=== PATIENT | female | born 1950 | race Caucasian/White ===

== ENCOUNTER 2019-08-26 10:08 | Inpatient (IN) | payer OTHER ==
[2019-08-26] MEDS ORDERED: BUPIVACAINE LIPOSOME/PF (EXPAREL) 266 MG/20 ML VIAL ONE (12:43)
[2019-08-26] MEDS ORDERED: BUPIVACAINE HCL/PF 0.5% (5 MG/ML) 30 ML VIAL IJ ONE (12:43)
[2019-08-26] MEDS ORDERED: HEPARIN NA (PORCINE) 5,000 UNITS/ML 1ML VIAL ONE (12:46)
[2019-08-26] MEDS ORDERED: BUPIVACAINE HCL/PF 0.25% (2.5MG/ML) 10 ML VIAL ONE (12:46)
[2019-08-26] MEDS ORDERED: PROPOFOL 20 ML ONE ×24 (12:47→19:25)
[2019-08-26] MEDS ORDERED: THROMBIN (BOVINE) 5,000 UNIT VIAL TP ONE (12:47)
[2019-08-26] MEDS ORDERED: SUCCINYLCHOLINE CHLORIDE 200 MG/10 ML SYRINGE ONE (12:49)
[2019-08-26] MEDS ORDERED: MIDAZOLAM HCL 2 MG/2 ML SINGLE DOSE VIAL ONE ×2 (12:51)
[2019-08-26] MEDS ORDERED: HYDROmorphone HCl 2 MG/ML VIAL IVPUSH PRN (12:58)
[2019-08-26] MEDS ORDERED: oxyCODONE HCL 5 MG TABLET PO PRN ×2 (12:59)
--- NOTE | 2019-08-26 13:07 | PN ---
Progress Note (short form) - Note Progress Note: 68F s/p L1-S1 bilateral laminectomies; bilateral L1-S1 facetectomies; L3-L4, L4- L5, L5-S1 PLIF w/T11-S1 posterior instrumented spinal fusion POD #0. -Admit to ICU post-op. -Pain control: NO NSAID's; patient received pre-op TLIP block w/Exparel; OK to use ROOM MANAGER if needed; transition to oral analgesia post-op. -DVT PPx: -Mechanical only: VLADISLAV's, SCD's. -Chemical: None. -Incentive spirometry q15 min. -NPO until flatus. -Baird care; d/c when ambulating. -Post-op Ancef x 3 doses. -PT/OT/Rehab, OOB. -WBAT B/L LE. -No bending, lifting (>5 lbs), or twisting for 9-12 months. -Care per ICU & medical hospitalist teams. -Discharge planning: f/u 7-10 days [facility]; call for appointment; . -Will follow. Eliezer Villa MD (Orthopaedic Surgery).
--- NOTE | 2019-08-26 13:11 | OP ---
Operative Note - Note: Operative Date: 08/26/19 Pre-Operative Diagnosis: 1. Thoracolumbar kyphoscoliosis with sagital vertical malalignment deformity. 2. 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 3. L1-S1 spinal stenosis with neurogenic claudication. 4. Thoracolumbar axial segmental instability. Severity of illness: 4. Operation: 1. L1, L2, L3, L4, L5, S1 bilateral laminectomies & osteotomies ( facetectomies). 2. TL4-L5, L5-S1 posterior lumbar interbody fusion. 3. T11-S1 posterior instrumentation. 4. T11-S1 posterolateral arthrodesis. 5. Bone allograft. 6. Bone autograft. 7. Bone marrow aspiration. 8. Complex wound closure (60cm) Implants: Implants: Cages: Fortilink Tetrafuse. L4-L5: 13mm. L5-S1: 10mm. Screws, Rods, Cross-Link. Post-Operative Diagnosis: Same as Pre-op Surgeon: Eliezer Villa Front Window Cashier: Elder Villa Anesthesiologist/REFERENCE ASSISTANT: Zenia Delgado Anesthesia: General, Local (TLIP block) Specimens Removed: L4-L5, L5-S1 discs Estimated Blood Loss (mls): 1,750 Blood Volume Replaced (mls): 625 (Cell Saver) Fluid Volume Replaced (mls): 3,000 (Crystalloid) Operative Report Dictated: Yes
[2019-08-26] MEDS ORDERED: KETAMINE HCL 200 MG/20 ML VIAL ONE (14:07)
[2019-08-26] MEDS ORDERED: HYDROmorphone HCl 2 MG/ML VIAL ONE ×3 (14:11→19:21)
[2019-08-26] MEDS ORDERED: VANCOMYCIN 1,000 MG VIAL (RESTRICTED TO ID ONLY) ONE (14:21)
[2019-08-26] MEDS ORDERED: BENZOIN TINCTURE SWABSTICK TP ONE (14:54)
[2019-08-26] MEDS ORDERED: TRANEXAMIC ACID 1000 MG/10 ML VIAL ONE (14:55)
[2019-08-26] MEDS ORDERED: ceFAZolin SODIUM 1 GM VIAL ONE ×2 (14:56→18:53)
[2019-08-26] MEDS ORDERED: DEXAMETHASONE SOD PHOSPHATE 4 MG/1 ML VIAL ONE (15:00)
[2019-08-26] MEDS ORDERED: ceFAZolin SODIUM 1 GM VIAL IVPB ONE ×2 (15:00→18:55)
[2019-08-26] MEDS ORDERED: ONDANSETRON 4 MG/2 ML VIAL ONE (15:00)
[2019-08-26] MEDS ORDERED: VANCOMYCIN 1,000 MG VIAL (RESTRICTED TO ID ONLY) IVPB ONE (15:10)
[2019-08-26] MEDS ORDERED: ROCURONIUM BROMIDE 50 MG/5 ML SYRINGE ONE (15:40)
[2019-08-26] MEDS ORDERED: DESFLURANE GAS 240 ML BOTTLE IH ONE (15:53)
[2019-08-26] MEDS ORDERED: GLYCOPYRROLATE 0.2 MG/1 ML VIAL ONE (16:32)
[2019-08-26] MEDS ORDERED: ePHEDrine SULFATE 50 MG/1 ML AMPULE ONE (16:50)
[2019-08-26] MEDS ORDERED: BENZOIN/ALOE VERA/STORAX/TOLU 58 ML BOTTLE TP ONE (20:48)
[2019-08-26] MEDS ORDERED: LACTATED RINGERS SOLUTION 1,000 ML IV SCH ×2 (21:15→22:15)
[2019-08-26] MEDS ORDERED: oxyCODONE HCL 10 MG SUSTAINED ACTING TABLET PO SCH (22:00)
--- NOTE | 2019-08-27 00:42 | CONSULT ---
Consultation: REQUESTING PROVIDER: CONSULT REQUEST: We have been asked to medically evaluate this patient for post op medical management. HISTORY OF PRESENT ILLNESS: This is a 68 year old female with no significant PMH. She presented to the ICU after elective spinal surgery consisting of the following procedures: 1. L1, L2 , L3, L4, L5, S1 bilateral laminectomies & osteotomies (facetectomies). 2. TL4- L5, L5-S1 posterior lumbar interbody fusion. 3. T11-S1 posterior instrumentation. 4. T11-S1 posterolateral arthrodesis. 5. Bone allograft. 6. Bone autograft. 7. Bone marrow aspiration. 8. Complex wound closure (60cm). She required the surgery due to chronic lower back pain, which began 2 years ago after she fell down a step at a restaurant. She hit her head, but claims that her hair was fashioned into a bun, which served to soften the blow. She believes she did not lose consciousness, although she admits that she does not remember much about the event. She complained of significant back pain during questioning, and was unable to answer any further questions. REVIEW OF SYSTEMS: CONSTITUTIONAL: Absent: fever, chills, diaphoresis, generalized weakness, malaise, loss of appetite, weight change HEENT: Absent: rhinorrhea, nasal congestion, throat pain, throat swelling, difficulty swallowing, mouth swelling, ear pain, eye pain, visual changes CARDIOVASCULAR: Absent: chest pain, syncope, palpitations, irregular heart rate, lightheadedness , peripheral edema RESPIRATORY: Absent: cough, shortness of breath, dyspnea with exertion, orthopnea, wheezing, stridor, hemoptysis GASTROINTESTINAL: Absent: abdominal pain, abdominal distension, nausea, vomiting, diarrhea, constipation, melena, hematochezia GENITOURINARY: Absent: dysuria, frequency, urgency, hesitancy, hematuria, flank pain, genital pain MUSCULOSKELETAL: back pain Absent: myalgia, arthralgia, joint swelling, neck pain SKIN: Absent: rash, itching, pallor HEMATOLOGIC/IMMUNOLOGIC: Absent: easy bleeding, easy bruising, lymphadenopathy, frequent infections ENDOCRINE: Absent: unexplained weight gain, unexplained weight loss, heat intolerance, cold intolerance NEUROLOGIC: Absent: headache, focal weakness or paresthesias, dizziness, unsteady gait, seizure, mental status changes, bladder or bowel incontinence PSYCHIATRIC: Absent: anxiety, depression, suicidal or homicidal ideation, hallucinations. PHYSICAL EXAMINATION Vital Signs - 24 hr 08/26/19 08/26/19 08/26/19 11:27 21:18 21:30 Temperature 98.3 F 98.6 F Pulse Rate 78 103 H 98 H Respiratory 16 12 12 Rate Blood Pressure 144/76 123/79 147/100 O2 Sat by Pulse 96 96 Oximetry (%) 08/26/19 08/26/19 08/26/19 21:45 22:00 22:15 Temperature Pulse Rate 99 H 104 H 106 H Respiratory 12 12 12 Rate Blood Pressure 114/80 121/86 125/90 O2 Sat by Pulse 96 96 96 Oximetry (%) 08/26/19 08/26/19 08/26/19 22:30 22:45 23:00 Temperature Pulse Rate 104 H 106 H 88 Respiratory 12 12 25 H Rate Blood Pressure 134/77 140/83 115/73 O2 Sat by Pulse 97 95 100 Oximetry (%) 08/26/19 08/26/19 23:15 23:30 Temperature 97.9 F Pulse Rate 87 90 Respiratory 22 H 196 H Rate Blood Pressure 129/70 130/88 O2 Sat by Pulse 100 96 Oximetry (%) GENERAL: On venti mask, in distress, complaining of back pain and dry throat. AOx3 HEAD: Normal with no signs of trauma. EYES: ANTONINO, EOMI EARS, NOSE, THROAT: Dry mucus membranes LUNGS: Decreased breath sounds B/L, clear B/L HEART: RRR, no murmurs ABDOMEN: Soft, nontender, not distended LOWER EXTREMITIES: 2+ pulses, warm, well-perfused NEUROLOGICAL: Unable to assess motor function due to pain, sensations intact SKIN: Warm, dry, normal turgor, no rashes or lesions noted. Laboratory Results - last 24 hr 08/26/19 08/26/19 10:49 12:40 Blood Type A POSITIVE A POSITIVE Antibody Screen Negative Active Medications Generic Name Dose Route Start Last Admin Trade Name Freq PRN Reason Stop Dose Admin Acetaminophen 1,000 mg 08/27/19 06:00 Ofirmev Injection - IVPB 08/30/19 05:59 Q8H FARAZ Cefazolin Sodium/Dextrose 2 gm 08/27/19 01:00 Ancef 2 Gm Premixed Ivpb - IVPB 08/27/19 13:01 Q6H FARAZ Hydromorphone HCl 0.5 mg 08/26/19 12:58 Dilaudid Vial - IVPUSH [id number] PRN PAIN LEVEL 6-10 Lactated Ringer's 1,000 mls @ 125 mls/hr 08/26/19 22:15 Lactated Ringers Solution IV ASDIR FARAZ Ondansetron HCl 4 mg 08/26/19 21:12 Zofran Injection IVPUSH Q6H PRN NAUSEA AND/OR VOMITING ASSESSMENT/PLAN: POD #0 after 1. L1, L2, L3, L4, L5, S1 bilateral laminectomies & osteotomies ( facetectomies). 2. TL4-L5, L5-S1 posterior lumbar interbody fusion. 3. T11-S1 posterior instrumentation. 4. T11-S1 posterolateral arthrodesis. 5. Bone allograft. 6. Bone autograft. 7. Bone marrow aspiration. 8. 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 #Respiratory - Incentive spirometry q15 min. #ID -Post-op Ancef x 3 doses. #Renal - Baird care; d/c when ambulating. #FEN - NPO until flatus - RL @ 125 #DVT PPx: - Mechanical only: VLADISLAV's, SCD's. #Dispo - Monitor in ICU - We will continue to follow the patient. Thank you for this consultative opportunity. Visit type - Emergency Visit Emergency Visit: No - New Patient This patient is new to me today: Yes Date on this admission: 08/26/19 - Critical Care Critical Care patient: Yes Total Critical Care Time (in minutes): 37 Critical Care Statement: The care of this patient involved high complexity decision making to prevent further life threatening deterioration of the patient 's condition and/or to evaluate & treat vital organ system(s) failure or risk of failure. ATTENDING PHYSICIAN STATEMENT I saw and evaluated the patient. I reviewed the resident's note and discussed the case with the resident. I agree with the resident's findings and plan as documented. SUBJECTIVE: OBJECTIVE: ASSESSMENT AND PLAN:
[2019-08-27] MEDS: PHENOL 177 ML SPRAY BOTTLE MM PRN ×2 (00:51→10:00)
[2019-08-27] MEDS: ceFAZolin 2 GRAM PREMIX BAG IVPB SCH ×3 (00:57→12:05)
[2019-08-27] MEDS ORDERED: HYDROmorphone HCl 2 MG/ML VIAL IVPUSH ONE ×3 (01:02→11:50)
[2019-08-27] MEDS: ACETAMINOPHEN 1000 MG/100 ML VIAL (NON FORMULARY) IVPB SCH ×3 (05:26→21:45)
[2019-08-27 06:57] LABS: HEMATOCRIT 40.3 % (32.4-45.2); MCHC 32.2 g/dl (32.0-36.0); MEAN PLT VOLUME 7.8 fl (7.5-11.1); PLATELET COUNT 224 K/MM3 (134-434); RBC 4.79 M/mm3 (3.60-5.2); RDW 14.2 % (11.6-15.6); WHITE BLOOD COUNT 15.7 K/mm3 (4.0-10.0)
[2019-08-27 07:28] LABS: BLOOD UREA NITROGEN 17.7 mg/dL (7-18); CALCIUM 8.6 mg/dL (8.5-10.1); CREATININE 0.9 mg/dL (0.55-1.3); POTASSIUM 4.2 mmol/L (3.5-5.1)
--- NOTE | 2019-08-27 07:31 | HP ---
<Scooter Gibbons - Last Filed: 08/27/19 09:09> CHIEF COMPLAINT: Orthopedic Surgery PCP: HISTORY OF PRESENT ILLNESS: 68yo F with only history of low back pain with neuropathy who came in to this facility for undergoing complex lumbar correction and spinal decompression with Dr. Villa. Pt underwent pre-operative clearance with her PCP (records in chart) and was optimized for her surgery. EBL perioperatively is 1750cc with 650cc Cell saver and 3L IVF during procedure. Pt had no events with post- operative recovery and was monitored overnight in the ICU. Pt reports last night she was in excessive pain with minimal relief from Tylenol and slight relief with Dilaudid 0.5mg IVP. Pt also complains of odynophagia, however denies hoarseness of voice and dysphagia all-together. Pt today reports pain is 6/10 while resting in bed and she has been using her incentive spirometry. Pt denies any numbness/tingling of her distal extremities, weakness of her feet, SOB, CP, palpitations, abdominal pain. 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 Allergies No Known Allergies Allergy (Verified 08/26/19 11:14) HOME MEDICATIONS: Home Medications Medication Instructions Recorded Oxycodone HCl/Acetaminophen 1 each PO PRN 08/23/19 [Oxycodone-Acetaminophen 10-325] REVIEW OF SYSTEMS As per HPI PHYSICAL EXAMINATION Vital Signs - 24 hr 08/26/19 08/26/19 08/26/19 11:27 21:00 21:18 Temperature 98.3 F 98.6 F Pulse Rate 78 103 H Respiratory 16 12 Rate Blood Pressure 144/76 123/79 O2 Sat by Pulse 95 96 Oximetry (%) 08/26/19 08/26/19 08/26/19 21:30 21:45 22:00 Temperature Pulse Rate 98 H 99 H 104 H Respiratory 12 12 12 Rate Blood Pressure 147/100 114/80 121/86 O2 Sat by Pulse 96 96 96 Oximetry (%) 08/26/19 08/26/19 08/26/19 22:15 22:30 22:45 Temperature Pulse Rate 106 H 104 H 106 H Respiratory 12 12 12 Rate Blood Pressure 125/90 134/77 140/83 O2 Sat by Pulse 96 97 95 Oximetry (%) 08/26/19 08/26/19 08/26/19 23:00 23:15 23:30 Temperature 97.9 F Pulse Rate 88 87 90 Respiratory 25 H 22 H 196 H Rate Blood Pressure 115/73 129/70 130/88 O2 Sat by Pulse 100 100 96 Oximetry (%) 08/27/19 08/27/19 08/27/19 02:00 03:33 05:33 Temperature 98.2 F 98.7 F 98.7 F Pulse Rate 78 81 78 Respiratory 11 27 H 22 H Rate Blood Pressure 132/71 124/53 L 125/55 L O2 Sat by Pulse Oximetry (%) 08/27/19 06:33 Temperature 98.5 F Pulse Rate 82 Respiratory 19 Rate Blood Pressure 135/54 L O2 Sat by Pulse Oximetry (%) GENERAL: Awake, alert, and fully oriented, in no acute distress. HEENT: NC/AT, JOSE< sclera anicteric, MMM NECK: No JVD LUNGS: CTA bilaterally. No wheezes, and no crackles. No accessory muscle use. HEART: RRR, normal S1 and S2 without murmur ABDOMEN: Soft, NT/ND,Hypoactive bowel sounds, no guarding. : Tapia with clear-yellow drainage noted EXTREMITIES: 2+ pulses, warm, well-perfused. No calf tenderness. No peripheral edema. NEUROLOGICAL: alumni relations officer II-XII intact. Strength of UExt b/l 5/5. Strength of LExt 5/ 5 with plantar and dorsal flexion, 3/5 with hip flexion. Normal speech PSYCHIATRIC: Cooperative. Good eye contact. Appropriate mood and affect. SKIN: Warm, dry, normal turgor, no rashes or lesions noted Laboratory Results - last 24 hr 08/26/19 08/26/19 08/27/19 10:49 12:40 05:30 WBC 15.7 H RBC 4.79 Hgb 13.0 Hct 40.3 MCV 84.0 MCH 27.0 MCHC 32.2 RDW 14.2 Plt Count 224 MPV 7.8 Sodium Potassium Chloride Carbon Dioxide Anion Gap BUN Creatinine Est GFR (CKD-EPI)AfAm Est GFR (CKD-EPI)NonAf Random Glucose Calcium Blood Type A POSITIVE A POSITIVE Antibody Screen Negative 08/27/19 05:30 WBC RBC Hgb Hct MCV MCH MCHC RDW Plt Count MPV Sodium 141 Potassium 4.2 Chloride 109 H Carbon Dioxide 23 Anion Gap 9 BUN 17.7 Creatinine 0.9 Est GFR (CKD-EPI)AfAm 75.08 Est GFR (CKD-EPI)NonAf 64.78 Random Glucose 113 H Calcium 8.6 Blood Type Antibody Screen ASSESSMENT/PLAN: POD #0-1 of L1-S1 bilateral laminectomies; bilateral L1-S1 facetectomies L3-L4, L4-L5, L5-S1 PLIF w/T11-S1 posterior instrumented spinal fusion Odynophagia --Added oral narcotic pain regiment (Oxycodone 5mg q6h vs. 10mg q6h) based upon pain scale --Avoid NSAIDs if possible --Tylenol to augment pain as needed --Mobilize per surgery --Once passing flatus can advance diet --Once mobility increases can discontinue tapia and ToV begins --Cepacol lozenges ordered for odynophagia likely 2/2 to intubation during procedure --Encouraged incentive spirometry use --Physical therapy ordered --Will have to f/u with Dr. Villa post-op FEN: Fluids: LR@125cc/hr; can discontinue once tolerating PO Electrolyte abnormalities: None Nutrition: NPO until flatus PPX: DVT - Scds GI - Not indicated Dispo: Can transfer to / today Case discussed with Dr. Goodwin and ICU team Scooter Gibbons DO - PGY-3 Visit type - Emergency Visit Emergency Visit: No - New Patient This patient is new to me today: Yes Date on this admission: 08/27/19 - Critical Care Critical Care patient: No ATTENDING PHYSICIAN STATEMENT I saw and evaluated the patient. I reviewed the resident's note and discussed the case with the resident. I agree with the resident's findings and plan as documented. SUBJECTIVE: OBJECTIVE: ASSESSMENT AND PLAN: <Christopher Goodwin - Last Filed: 09/14/19 09:48> Seen and examined; agree with above aside from as supplemented below by myself. Personally verified all historical information and yang PE findings. Independently reviewed all labs and diagnostics. I discussed the case at length with the resident and consulting services. All questions answered. Seen in ICU Agree with subjective info and PMH, etc. HOME MEDICATIONS: Home Medications Medication Instructions Recorded Oxycodone HCl/Acetaminophen 1 each PO PRN 08/23/19 [Oxycodone-Acetaminophen 10-813] REVIEW OF SYSTEMS 10 sys ROS done and negative aside from HPI PHYSICAL EXAMINATION Vital Signs - 24 hr 08/27/19 08/27/19 08/27/19 14:00 16:00 17:00 Temperature Pulse Rate 98 H 96 H 93 H Respiratory 14 22 H 22 H Rate Blood Pressure 166/71 161/68 161/68 O2 Sat by Pulse 95 Oximetry (%) 08/27/19 08/27/19 08/27/19 18:00 18:15 20:00 Temperature 99.2 F Pulse Rate 99 H 97 H Respiratory 17 15 Rate Blood Pressure 161/69 144/65 O2 Sat by Pulse 96 Oximetry (%) 08/27/19 08/27/19 08/28/19 21:00 22:00 00:00 Temperature 100.9 F H Pulse Rate 92 H 91 H Respiratory 15 15 14 Rate Blood Pressure 141/64 139/69 O2 Sat by Pulse 97 97 Oximetry (%) 08/28/19 08/28/19 08/28/19 00:45 02:00 04:00 Temperature 100.3 F H Pulse Rate 85 87 90 Respiratory 13 14 14 Rate Blood Pressure 139/69 149/64 159/65 O2 Sat by Pulse 97 98 100 Oximetry (%) 08/28/19 08/28/19 08/28/19 06:00 08:00 10:00 Temperature 100 F H 98.9 F Pulse Rate 90 83 85 Respiratory 15 13 16 Rate Blood Pressure 137/61 145/61 143/59 L O2 Sat by Pulse 100 Oximetry (%) GENERAL: Awake, alert, and fully oriented, in no acute distress. HEAD: Normal with no signs of trauma. EYES: Pupils equal, round and reactive to light, extraocular movements intact, sclera anicteric, conjunctiva clear. No lid lag. EARS, NOSE, THROAT: Ears normal, nares patent, oropharynx clear without exudates. Moist mucous membranes. NECK: Normal range of motion, supple without lymphadenopathy, JVD, or masses. LUNGS: Breath sounds equal, clear to auscultation bilaterally. No wheezes, and no crackles. No accessory muscle use. HEART: Regular rate and rhythm, normal S1 and S2 without murmur, rub or gallop. ABDOMEN: Soft, nontender, not distended, normoactive bowel sounds MUSCULOSKELETAL: Normal range of motion at all joints. No bony deformities or tenderness. No CVA tenderness. UPPER EXTREMITIES: 2+ pulses, warm, well-perfused. No cyanosis. No clubbing. No peripheral edema. LOWER EXTREMITIES: 2+ pulses, warm, well-perfused. No calf tenderness. No peripheral edema. NEUROLOGICAL: Cranial nerves II-XII intact. Normal speech. Normal gait. PSYCHIATRIC: Cooperative. Good eye contact. Appropriate mood and affect. SKIN: Warm, dry, normal turgor, no rashes or lesions noted, normal capillary refill. Laboratory Results - last 24 hr 08/28/19 08/28/19 07:00 07:00 WBC 10.8 H RBC 3.90 Hgb 10.8 Hct 32.1 L D MCV 82.2 MCH 27.8 MCHC 33.8 RDW 13.9 Plt Count 186 MPV 7.4 L Sodium 138 Potassium 4.0 Chloride 104 Carbon Dioxide 30 Anion Gap 3 L BUN 13.4 Creatinine 0.7 Est GFR (CKD-EPI)AfAm 101.74 Est GFR (CKD-EPI)NonAf 87.78 Random Glucose 97 Calcium 8.5 Preop labs reviewed imaging reviewed EKG reviewed Tele reviewed ASSESSMENT/PLAN: Presents for POD #0-1 of L1-S1 bilateral laminectomies; bilateral L1-S1 facetectomies L3-L4, L4-L5, L5-S1 PLIF w/T11-S1 posterior instrumented spinal fusion Odynophagia No further issues Agree with assessment and plan Managemetn per PCC and Dr. Villa Defer pain control to sgy; agree with plan per resident note. Monitor for postoperative complications Full Code ATTENDING PHYSICIAN STATEMENT I saw and evaluated the patient. I reviewed the resident's note and discussed the case with the resident. I agree with the resident's findings and plan as documented. SUBJECTIVE: OBJECTIVE: ASSESSMENT AND PLAN:
[2019-08-27] MEDS ORDERED: oxyCODONE HCL 5 MG TABLET PO PRN (08:05)
[2019-08-27] MEDS ORDERED: DOCUSATE SODIUM 100 MG CAPSULE (FP) PO PRN (08:05)
--- NOTE | 2019-08-27 09:01 | PN ---
Physical Exam: SUBJECTIVE: Patient seen and examined. Complains of back pain. Denies passing gas. Denies CP, SOB. OBJECTIVE: Vital Signs Period Temp Pulse Resp BP Sys/No Pulse Ox Last 24 Hr 97.9 F-98.7 F 78-106 11-196 114-147/53-100 95-100 GENERAL: The patient is awake, alert, and fully oriented, in mild acute distress. LUNGS: Breath sounds equal, clear to auscultation bilaterally, no wheezes, no crackles, no accessory muscle use. HEART: Regular rate and rhythm, S1, S2 without murmur, rub or gallop. ABDOMEN: Soft, nontender, nondistended, normoactive bowel sounds, no guarding, no rebound, no hepatosplenomegaly, no masses. BACK: midline dressing over surgical site EXTREMITIES: warm, well-perfused, no edema NEUROLOGICAL: AOx3. Normal speech Laboratory Results - last 24 hr 08/26/19 08/26/19 08/27/19 10:49 12:40 05:30 WBC 15.7 H RBC 4.79 Hgb 13.0 Hct 40.3 MCV 84.0 MCH 27.0 MCHC 32.2 RDW 14.2 Plt Count 224 MPV 7.8 Sodium Potassium Chloride Carbon Dioxide Anion Gap BUN Creatinine Est GFR (CKD-EPI)AfAm Est GFR (CKD-EPI)NonAf Random Glucose Calcium Blood Type A POSITIVE A POSITIVE Antibody Screen Negative 08/27/19 05:30 WBC RBC Hgb Hct MCV MCH MCHC RDW Plt Count MPV Sodium 141 Potassium 4.2 Chloride 109 H Carbon Dioxide 23 Anion Gap 9 BUN 17.7 Creatinine 0.9 Est GFR (CKD-EPI)AfAm 75.08 Est GFR (CKD-EPI)NonAf 64.78 Random Glucose 113 H Calcium 8.6 Blood Type Antibody Screen Active Medications Generic Name Dose Route Start Last Admin Trade Name Freq PRN Reason Stop Dose Admin Acetaminophen 1,000 mg 08/27/19 06:00 08/27/19 05:26 Ofirmev Injection - IVPB 08/30/19 05:59 1,000 mg Q8H FARAZ Administration Benzocaine/Menthol 1 each 08/27/19 08:04 Cepacol Lozenge - MM PRN PRN SORE THROAT Cefazolin Sodium/Dextrose 2 gm 08/27/19 01:00 08/27/19 06:14 Ancef 2 Gm Premixed Ivpb - IVPB 08/27/19 13:01 2 gm Q6H FARAZ Administration Docusate Sodium 100 mg 08/27/19 08:05 Colace - PO BID PRN CONSTIPATION Lactated Ringer's 1,000 mls @ 125 mls/hr 08/26/19 22:15 08/26/19 23:00 Lactated Ringers Solution IV 125 mls/hr ASDIR FARAZ Administration Ondansetron HCl 4 mg 08/26/19 21:12 Zofran Injection IVPUSH Q6H PRN NAUSEA AND/OR VOMITING Oxycodone HCl 5 mg 08/27/19 08:05 Roxicodone - PO Q6H PRN PAIN LEVEL 4 - 6 Oxycodone HCl 10 mg 08/27/19 08:05 Roxicodone - PO Q6H PRN PAIN LEVEL 7 - 10 Phenol/Menthol 1 spray 08/27/19 00:41 08/27/19 00:51 Chloraseptic - MM 1 spray Q2H PRN Administration SORE THROAT ASSESSMENT/PLAN: Emilee Daugherty is a 68yF w no significant PMHx after 1. L1, L2, L3, L4, L5, S1 bilateral laminectomies & osteotomies (facetectomies). 2. TL4-L5, L5-S1 posterior lumbar interbody fusion. 3. T11-S1 posterior instrumentation. 4. T11 -S1 posterolateral arthrodesis. 5. Bone allograft. 6. Bone autograft. 7. Bone marrow aspiration. 8. Complex wound closure (60cm) POD#1 #Ortho - PT #Neuro - Pain control: dilaudid, tylenol, oxycodone PRN. No NSAIDs. 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 - New Patient This patient is new to me today: Yes Date on this admission: 08/27/19 - Critical Care Critical Care patient: Yes Total Critical Care Time (in minutes): 38 Critical Care Statement: The care of this patient involved high complexity decision making to prevent further life threatening deterioration of the patient 's condition and/or to evaluate & treat vital organ system(s) failure or risk of failure. ATTENDING PHYSICIAN STATEMENT I saw and evaluated the patient. I reviewed the resident's note and discussed the case with the resident. I agree with the resident's findings and plan as documented. SUBJECTIVE: OBJECTIVE: ASSESSMENT AND PLAN:
[2019-08-27] MEDS: oxyCODONE HCL 5 MG TABLET PO PRN ×2 (09:08→14:48)
--- NOTE | 2019-08-27 10:00 | PN ---
Progress Note (short form) - Note Progress Note: Anesthesia Post Op Note Pt s/p GA w/ TLIP blocks for multiple level laminectomy & spinal fusions Pt awake alert in bed Pt denies n/v; denies puritis tapia in situ Pt reports poor pain control on current regimen VSS would suggest increasing pain meds - consider NEUROPSYCHIATRIST no apparent anesthesia complications Christiane Presley.
[2019-08-27] MEDS ORDERED: morphine CARPU-JECT 4 MG/1 ML DISP.SYRIN IVPUSH ONE (10:19)
[2019-08-27] MEDS ORDERED: morphine SULFATE 4 MG/ML VIAL ONE (10:27)
[2019-08-27] MEDS ORDERED: morphine SULFATE 4 MG/ML VIAL IVPUSH ONE (10:30)
--- NOTE | 2019-08-27 11:44 | PN ---
Teaching Attending Note Name of Resident: Don Conroy ATTENDING PHYSICIAN STATEMENT I saw and evaluated the patient. I reviewed the resident's note and discussed the case with the resident. I agree with the resident's findings and plan as documented. SUBJECTIVE: Pt seen and examined in the ICU. c/o significant pain, not controlled with current regimen. No nausea or vomiting. OBJECTIVE: Vital Signs Period Temp Pulse Resp BP Sys/No Pulse Ox Last 24 Hr 97.9 F-98.9 F 78-106 11-196 114-154/53-100 95-100 Intake & Output 08/24/19 08/25/19 08/26/19 08/27/19 23:59 23:59 23:59 23:59 Intake Total 3825 Output Total 2200 Balance 1625 Weight 108.046 kg Gen: NAD at rest Heart: RRR Lung: decreased breath sounds at the bases Abd: soft, nontender Ext: no edema CBC, BMP 08/27/19 05:30 08/27/19 05:30 Active Medications Acetaminophen (Ofirmev Injection -) 1,000 mg IVPB Q8H FARAZ Stop: 08/30/19 05:59 Last Admin: 08/27/19 05:26 Dose: 1,000 mg Benzocaine/Menthol (Cepacol Lozenge -) 1 each MM PRN PRN PRN Reason: SORE THROAT Cefazolin Sodium/Dextrose (Ancef 2 Gm Premixed Ivpb -) 2 gm IVPB Q6H FARAZ Stop: 08/27/19 13:01 Last Admin: 08/27/19 06:14 Dose: 2 gm Docusate Sodium (Colace -) 100 mg PO BID PRN PRN Reason: CONSTIPATION Hydromorphone HCl (Dilaudid Vial -) 1 mg IVPUSH ONCE ONE Stop: 08/27/19 11:51 Lactated Ringer's (Lactated Ringers Solution) 1,000 mls @ 125 mls/hr IV ASDIR FARAZ Last Admin: 08/26/19 23:00 Dose: 125 mls/hr Ondansetron HCl (Zofran Injection) 4 mg IVPUSH Q6H PRN PRN Reason: NAUSEA AND/OR VOMITING Oxycodone HCl (Roxicodone -) 5 mg PO Q6H PRN PRN Reason: PAIN LEVEL 4 - 6 Oxycodone HCl (Roxicodone -) 10 mg PO Q6H PRN PRN Reason: PAIN LEVEL 7 - 10 Last Admin: 08/27/19 09:08 Dose: 10 mg Phenol/Menthol (Chloraseptic -) 1 spray MM Q2H PRN PRN Reason: SORE THROAT Last Admin: 08/27/19 00:51 Dose: 1 spray ASSESSMENT AND PLAN: 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
[2019-08-27] MEDS: LACTATED RINGERS SOLUTION 1,000 ML IV SCH (14:40)
[2019-08-27] MEDS: BENZOCAINE/MENTH/CETYLPYRD CL 1 EACH LOZENGE MM PRN (14:41)
--- NOTE | 2019-08-27 15:23 | OP ---
Date of Operation: 08/26/2019 Pre-Operative Diagnosis: 1. Thoracolumbar kyphoscoliosis deformity with sagittal vertical malalignment and imbalance. 2. 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 3. L1-S1 spinal stenosis with neurogenic claudication. 4. L1-S1 axial instability with myofascial pain complex. Post-Operative Diagnosis: 1. Thoracolumbar kyphoscoliosis deformity with sagittal vertical malalignment and imbalance. 2. 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 3. L1-S1 spinal stenosis with neurogenic claudication. 4. L1-S1 axial instability with myofascial pain complex. Procedure Performed: 1. L1, L2, L3, L4, L5, S1 bilateral laminectomies & facetectomies. (37158-88 , 63489-26 x 5) 2. L4-L5, L5-S1 posterolateral arthrodesis & posterior lumbar interbody fusion (PLIF). (62069 x 2) 3. L4-L5, L5-S1 insertion biomechanical devices (14839 x 2). 4. T11-S1 posterior instrumentation. (88924-02-85) 5. T11-T12 posterolateral arthrodesis. (33674-22, 23339-22) 6. L1-L2, L2-L3, L3-L4 posterolateral arthrodesis. (33668-15, 71410-78 x 2) 7. Morselized bone autograft. (20970) 8. Morselized bone allograft. (55158) 9. Bone marrow aspiration for bone grafting. (40075) 10. Complex wound closure (60cm) (24868 x 6) Surgeon: Eliezer Villa M.D. Film Booker: Elder Villa M.D. Anesthesiologist: Zenia Delgado M.D. Anesthesia: General, Local (TLIP block). Position: Prone. Incision: Midline. Specimens Removed: L4-L5, L5-S1 disc. Implants: Cages: Fortilink Tetrafuse. L4-L5: 13mm. L5-S1: 10mm. Screws: T11-S1. Rods: 2. Cross-Link: 1. Drains: 1 x deep HemoVac. Estimated Blood Loss: 1,750cc. Intravenous Fluid: 3L crystalloid. Transfusions: 625cc Cell Saver. Complications: None. Bacteriology: None. Closure: No. 1 Vicryl, 2-0 Biosyn absorbable sutures. Indications: The patient was indicated for the above listed surgical procedure due to progressive spinal deformity affecting balance and safety, and due to progressive neurological and functional decline that limits her mobility and ability to independently attend to her activities of daily living. The patient was identified in the holding area by her armband. A long discussion was held with the patient regarding the risks, benefits, and alternatives of the above-listed procedure. The risks include, but are not limited to: Pain, bleeding, infection, damage to surrounding structures (including nerves, blood vessels, skin, ligaments, tendons, and bone), wound complications, failure of hardware/implants/reduction , need for further surgery, blood clots, myocardial infarction, cerebrovascular injury, pulmonary embolism, anesthesia complications, limp, numbness, paresthesias, loss of function, and . Benefits may include reduction of: spinal deformity, imbalance, back pain, spinal stenosis, radiculopathy, neurogenic claudication, and improved overall mobility and function. Alternatives include no surgery. All questions were answered. The patient understood and agreed to the procedure. Informed consent was obtained, witnessed, and verified. The patient's lumbar spine was marked. He was then assessed by the anesthesia team who proceeded to administer a bilateral imaging-guided TLIP block to facilitate post-operative pain management. The patient was then taken to the operating room after being seen by the anesthesia and nursing staff. Procedure: The patient was brought into the operating room, where anesthesia was then administered. This included 2g IV Ancef, 1g IV Vancomycin, and 1g IV tranexamic acid (TXA). A time-out was done led by , the attending surgeon. An indwelling Baird catheter was successfully inserted by the nursing team. The intra-operative neuromonitoring team provided prepositioning baseline motor and sensory readings. The patient was then safely placed in a prone position with all bony prominences well-padded on a [facility] spine table with strict attention paid to maintenance of sagittal vertical alignment. Retroversion of the pelvis was avoided by ensuring that the hips were extended. This also ensured appropriate lumbar lordosis. The arms were placed on well-padded arm boards and maintained with standard forward flexion, abduction, and external rotation of the shoulders, and flexion of the elbows. Special attention was given to the safe positioning of the cervical spine. The patients eyes, and belly were all free. The table was placed in 6 degrees of reverse Trendelenburg position to avoid ophthalmic vein congestion. Post-positional motor and sensory readings confirmed no change. A C-arm fluoroscopy unit was positioned perpendicularly to the table and maintained at the level of the upper thoracic spine, except when needed. The skin was prepped in standard, sterile fashion using betadine prep & scrub, wiped off with alcohol, and DuraPrep applied. Standard window draping was utilized, and this included draping of the C-arm. Appropriate pre-operative imaging, including lumbar spine x-rays, and MRI, were available throughout the case for intraoperative evaluation. Verification of the intended surgical levels was confirmed with a lateral fluoroscopic x-ray using a Rothman elevator for localization. A time-out was repeated, and the case began. A midline skin incision was performed from the tip of the spinous process of T10 to the tip of the spinous process of S2. Using electrocautery, the dissection was carried down through subcutaneous fat and then through the midline of the lumbodorsal fascia down to the tips of the spinous processes. A subperiosteal dissection was performed using a combination of unipolar electrocautery and Rothman elevation. This was carried down the spinous process, over the laminae, across the facet joints, and out over the tips of the transverse processes from T11 to S1. The T11-S1 joint capsules were pathologically hypertrophic. They were ablated using electrocautery and resected with rongeurs. The posterolateral dissection was performed with attention to hemostatis by utilizing both unipolar as well as bipolar electrocautery. The posterolateral space was packed with Ray-Alvarez sponges. A Adelaide clamp was placed over an exposed interspinous space and, once again, a lateral fluoroscopic x-ray helped identify the correct levels for dissection. A rongeur was used to grasp the L5 spinous processes and demonstrate the mobility of the L5-S1 segment. This confirmed the location of the last mobile segment. The bilateral L1, L2, L3, L4, L5, and S1 laminae were resected utilizing Kerrison rongeur upcuts combined with Leksell rongeurs. This was especially challenging at L4-L5, where severe spinal stenosis and epidural fibrosis was encountered. This was meticulously decompressed using a Florin elevator and Kerrison rongeurs. This completed the L1-S1 laminectomies. Next, an osteotome was utilized to longitudinally split the pars interarticularis and the inferior facets of L1, L2, L3, L4, and L5 bilaterally. The osteotomized bone was imploded towards the thecal sac, which was protected with cottonoid patties, and removed with either a Leksell rongeur or a Kerrison ronguer. All harvested bone was saved, freed of fibrous tissue, and milled with a bone mill. Upon removal of all osteotomized bone, we gained clear and easy access to the superior facets of L2, L3, L4, L5, and S1, where tight recess stenosis was appreciated. The exiting L1, L2 L3, L4, L5 & S1 nerve roots were identified and protected. The medial edge of the superior facets was resected at each level bilaterally using Kerrison rongeurs. This freed the theca and the exiting nerve roots at each level. The foraminae, bilaterally, at L1-L2, L2-L3, L3-L4, L4-L5, and L5-S1 were inspected utilizing an angled ball-tipped probe and proved to be generously capacious in accommodating the unobstructed exit of the nerve root at that level. The crowding of the convoluted ligamentum flavum and posterior facet joint capsules contributed to the recess stenosis. These structures were excised using Kerrison upcuts, thus fully completing the decompression. All retractors were relaxed and removed. A Jamshidi needle was delivered into the posterior ileum through the same surgical incision. Via this, bone marrow was aspirated and spun down to isolate a mix of osteoprogenitor and hematopoietic cells. Retractors were inserted once again. The following was performed at L3-L4, L4-L5 and also at L5-S1: The theca was gently mobilized from right to left and from left to right using a nerve root retractor. In order to do this, we ensured that each nerve root was completely free in its neural foramen as previously described. With the disc clearly visualized, large epidural veins were cauterized using bipolar electrocautery. The disc was approached from the left side and using a #11-blade, an cruciate annulotomy was performed. Rainer were passed into the disc at each level. At each level the discs were morselized with rotation of the rainer, and then extricated with pituitary rongeurs and saved for lab evaluation. The end plates were freed of all soft tissues using a serrated curette. Milled bone autograft was packed into the interbody space, thus completing an anterior arthrodesis of the intervertebral space. At L4-L5, a size 13mm x 22mm Fortilink Tetrafuse spacer was inserted. At L5-S1, a size 10mm x 22mm Fortilink Tetrafuse spacer was inserted. Each spacer was packed with bone autograft prior to insertion. Each cage was placed in a Press-Fit type manner where the rainer were one size under the actual size of the spacer placed as outlined above. An interference fit of the cage assured as we relied on ligamentotaxis for fixation. No dural problems were encountered, and the dura appeared healthy throughout the procedure. At this point, the neuromonitoring revealed no complications. Pedicle screws were then seated bilaterally from T11-S1 utilizing standard anatomical guidelines: IE the intersection of the horizontal axis of the transverse process with the longitudinal axis of the inferior facet at each level. Utilizing lateral fluoroscopic x-ray, a 4.5mm pneumatic drill was passed via the pedicle at each level, into the corresponding vertebral body. Imaging allowed us to ensure that the drill screw was delivered along the undersurface of each endplate. This was the best quality bone fixation at each level. Each pedicle was palpated with a ball tip feeler. No breech of anterior, medial, lateral, caudal or cranial bone bed was noted. Precision Spine pedicle screws were inserted from T11-S1. Each screw was reevaluated with lateral and anteroposterior fluoroscopy as well as intraoperative neuromonitoring. All intraoperative neuromonitoring readings were at or above the safe passage of 10 mA. The L1 and S1 pedicles were inspected and palpated using an angled ball-tipped probe. There was no evidence of screw breach involving any of the pedicles. Next, two rods were contoured, inserted and fixed into the screw heads with the appropriate screw caps. A torque-limiting device completed the fixation of each cap into each screw head. A single crosslink was utilized. The muscle was gently retracted off the intertransverse plane. All packing sponges were removed. Milled/morselized autologous bone, with morselized allograft bone expansion, was combined with the bone marrow aspiration and used for the posterolateral arthrodesis along the intertransverse plane from T11 to S1. The recipient bone bed was denuded of all soft tissue. No burring was necessary due to healthy bleeding of each bony surface, including the posterior surface of the transverse processes and the lateral surface of the pars interarticularis at each level. This completed the posterolateral arthrodesis. Again, a Valsalva maneuver up to 40mmHg ensured no CSF leak nor arterial or venous bleeding. Throughout the case, the wound was irrigated with normal saline solution to keep the exposed soft tissues hydrated. The retractors were released every 15 to 20 minutes to enable adequate blood flow to the paraspinal muscles. These muscles were gently massaged upon release of the retractors to further facilitate blood flow. At the end of the procedure, fragmented and compromised paraspinal muscle was superficially debrided. The dura was inspected and was completely intact. Closure: The paraspinal muscles and lumbodorsal fascia overlying the paraspinal musculature was closed in the midline using #1 Vicryl sutures in simple interrupted fashion. Despite excellent hemostasis, a deep HemoVac drain was utilized. The wound was repeatedly thoroughly irrigated with normal saline solution. The subcutaneous tissues were closed using #1 Vicryl sutures. The skin was closed using a running 2-0 Biosyn absorbable suture. This completed a complex, 4-layered wound closure of approximately 60cm. The skin was then painted with benzoin and Steri-Strips were applied perpendicular to the incision. A Primapore adhesive Telfa island dressing was applied over the Steri-Strips and a sterile, compressive dressing was applied using 4x4 gauze pads. The skin was painted with DuraPrep. The wound was then sealed with adhesive Ioban. Final AP & lateral fluoroscopic analysis revealed a T11-S1 instrumentation was intact & place. The L4-L5, & L5-S1 disc heights were reconstituted with visibly patent neuroforaminae. There was no fluoroscopic evidence of retained sponges or needles. The sponge and needle counts were correct at the end of the case and I, the attending surgeon, was present and scrubbed throughout the case. The patient was transferred to a hospital bed. All neural monitoring leads were removed. The patient was then transferred to the recovery room in stable condition, as per the anesthesia team, having tolerated the procedure well. Overall comment: Technically very challenging case due to severe spinal stenosis and epidural fibrosis at L4-L5. Operation went extremely well with no complications. All appropriate goals were achieved in the execution of this operative event. MD CARIN Ryan/[id number] MTDD
[2019-08-27] MEDS ORDERED: ONDANSETRON 4 MG/2 ML VIAL IVPUSH PRN (15:31)
[2019-08-27] MEDS: HYDROmorphone *PCA* 10MG/50ML DISP.SYRIN PCA SCH (17:00)
[2019-08-27] MEDS ORDERED: diazePAM 5 MG TABLET PO SCH (18:15)
[2019-08-27] MEDS: diazePAM 5 MG TABLET PO PRN (18:21)
[2019-08-27] MEDS: ONDANSETRON 4 MG/2 ML VIAL IVPUSH PRN (19:10)
[2019-08-28] MEDS: diazePAM 5 MG TABLET PO PRN ×2 (00:43→09:05)
[2019-08-28] MEDS: ACETAMINOPHEN 1000 MG/100 ML VIAL (NON FORMULARY) IVPB SCH ×4 (04:15→22:56)
--- NOTE | 2019-08-28 07:13 | PN ---
Progress Note (short form) - Note Progress Note: HPI: Pain control markedly improved. Pt denies any flatus to date. Pt denies any numbness/tingling, weakness in legs Vital Signs Temperature 100 F H 08/28/19 06:00 Pulse Rate 90 08/28/19 06:00 Respiratory Rate 15 08/28/19 06:00 Blood Pressure 137/61 08/28/19 06:00 O2 Sat by Pulse Oximetry (%) 100 08/28/19 04:00 GENERAL: Awake, alert, and fully oriented, in no acute distress. HEENT: NC/AT, JOSE< sclera anicteric, MMM NECK: No JVD LUNGS: CTA bilaterally. No wheezes, and no crackles. No accessory muscle use. HEART: RRR, normal S1 and S2 without murmur ABDOMEN: Soft, NT/ND, + bowel sounds, no guarding. : Tapia with clear-yellow drainage noted EXTREMITIES: 2+ pulses, warm, well-perfused. No calf tenderness. No peripheral edema. NEUROLOGICAL: automatic trimming sewer II-XII intact. Strength of UExt b/l 5/5. Strength of LExt 5/ 5 with plantar and dorsal flexion, 4/5 with hip flexion. Normal speech PSYCHIATRIC: Cooperative. Good eye contact. Appropriate mood and affect. SKIN: Warm, dry, normal turgor, no rashes or lesions noted CBC, BMP 08/27/19 05:30 08/27/19 05:30 Active Medications Acetaminophen (Ofirmev Injection -) 1,000 mg IVPB Q6H FARAZ Stop: 08/31/19 04:14 Last Admin: 08/28/19 04:15 Dose: 1,000 mg Benzocaine/Menthol (Cepacol Lozenge -) 1 each MM PRN PRN PRN Reason: SORE THROAT Last Admin: 08/27/19 14:41 Dose: 1 each Diazepam (Valium -) 10 mg PO Q6H PRN PRN Reason: PAIN SCALE 6-10 Stop: 08/30/19 18:08 Last Admin: 08/28/19 00:43 Dose: 10 mg Diphenhydramine HCl (Benadryl Injection -) 12.5 mg IVPUSH ONCE PRN PRN Reason: FOR ITCHING Docusate Sodium (Colace -) 100 mg PO BID PRN PRN Reason: CONSTIPATION Last Admin: 08/27/19 21:51 Dose: 100 mg Hydromorphone HCl (Hydromorphone 10 Mg/50 Ml-Ns) 10 mg FORECLOSURE HOME INSPECTOR FORECLOSURE HOME INSPECTOR FARAZ; Protocol Stop: 09/03/19 15:33 Last Admin: 08/27/19 17:00 Dose: 10 mg Lactated Ringer's (Lactated Ringers Solution) 1,000 mls @ 75 mls/hr IV ASDIR FARAZ Last Admin: 08/27/19 14:40 Dose: 75 mls/hr Ondansetron HCl (Zofran Injection) 4 mg IVPUSH Q6H PRN PRN Reason: NAUSEA AND/OR VOMITING Last Admin: 08/27/19 19:10 Dose: 4 mg Ondansetron HCl (Zofran Injection) 4 mg IVPUSH Q4H PRN PRN Reason: NAUSEA AND/OR VOMITING Oxycodone HCl (Roxicodone -) 5 mg PO Q6H PRN PRN Reason: PAIN LEVEL 4 - 6 Oxycodone HCl (Roxicodone -) 10 mg PO Q6H PRN PRN Reason: PAIN LEVEL 7 - 10 Last Admin: 08/27/19 14:48 Dose: 10 mg Phenol/Menthol (Chloraseptic -) 1 spray MM Q2H PRN PRN Reason: SORE THROAT Last Admin: 08/27/19 10:00 Dose: 1 spray ASSESSMENT/PLAN: POD #2 of L1-S1 bilateral laminectomies; bilateral L1-S1 facetectomies L3-L4, L4-L5, L5-S1 PLIF w/T11-S1 posterior instrumented spinal fusion Odynophagia --Pain improved with FORECLOSURE HOME INSPECTOR (0.2 bolus; no continuous) alongside of Oxycodone 5mg q6h vs. 10mg q6h based upon pain scale --Valium for spasming on board --Avoid NSAIDs if possible --Tylenol to augment pain as needed --Mobilize per surgery --Once passing flatus can advance diet --Once mobility increases can discontinue tapia and ToV begins --Encouraged incentive spirometry use --Physical therapy ordered --Will have to f/u with Dr. Villa post-op FEN: Fluids: LR@75cc/hr; can discontinue once tolerating PO Electrolyte abnormalities: None Nutrition: NPO until flatus PPX: DVT - Scds GI - Not indicated Dispo: Can transfer to M/S today Case discussed with Dr. Goodwin and ICU team Scooter Gibbons, DO - IM PGY-3 <Scooter Gibbons - Last Filed: 08/28/19 16:22> - Note Progress Note: Seen and examined; agree with above aside from as supplemented below by myself. Personally verified all historical information and yang PE findings. Independently reviewed all labs and diagnostics. I discussed the case at length with the resident and consulting services. All questions answered. Seen in ICU Pain controlled; no new issues noted. 10 sys ROS done and negative aside from HPI VS, labs, imaging reviewed NAD, AAO, resting in bed NC AT EOMI Dressing c/d/i Neurovascular intact Normal mood, appropriate behavior ASSESSMENT/PLAN: Patient presents s/p L1-S1 posterior decompression & T11-S1 instrumented fusion (08/26/2019). Agree with above plan Full Code SCDS Dispo pending <Christopher Goodwin - Last Filed: 09/14/19 09:53>
[2019-08-28 07:55] LABS: HEMATOCRIT 32.1 % (32.4-45.2); HEMOGLOBIN 10.8 GM/dL (10.7-15.3); MCH 27.8 pg (25.7-33.7); MCHC 33.8 g/dl (32.0-36.0); MEAN CELL VOLUME 82.2 fl (80-96); MEAN PLT VOLUME 7.4 fl (7.5-11.1); PLATELET COUNT 186 K/MM3 (134-434); RDW 13.9 % (11.6-15.6); WHITE BLOOD COUNT 10.8 K/mm3 (4.0-10.0)
--- NOTE | 2019-08-28 07:57 | PN ---
Physical Exam: SUBJECTIVE: Patient seen and examined by the bedside, complaining of lower back pain, has been belching but has not passed gas. OBJECTIVE: Vital Signs Period Temp Pulse Resp BP Sys/No Pulse Ox Last 24 Hr 98.9 F-100.9 F 82-99 13-22 137-166/61-93 95-100 GENERAL: On NC. AOx3 HEAD: Normal with no signs of trauma. EYES: ANTONINO, EOMI EARS, NOSE, THROAT: Dry mucus membranes LUNGS: Decreased breath sounds B/L, clear B/L HEART: RRR, no murmurs ABDOMEN: Soft, nontender, not distended LOWER EXTREMITIES: 2+ pulses, warm, well-perfused NEUROLOGICAL: Unable to assess motor function due to pain, sensations intact SKIN: Warm, dry, normal turgor, no rashes or lesions noted. Active Medications Generic Name Dose Route Start Last Admin Trade Name Freq PRN Reason Stop Dose Admin Acetaminophen 1,000 mg 08/28/19 04:15 08/28/19 04:15 Ofirmev Injection - IVPB 08/31/19 04:14 1,000 mg Q6H FARAZ Administration Benzocaine/Menthol 1 each 08/27/19 08:04 08/27/19 14:41 Cepacol Lozenge - MM 1 each PRN PRN Administration SORE THROAT Diazepam 10 mg 08/27/19 18:14 08/28/19 00:43 Valium - PO 08/30/19 18:08 10 mg Q6H PRN Administration PAIN SCALE 6-10 Diphenhydramine HCl 12.5 mg 08/27/19 15:31 Benadryl Injection - IVPUSH ONCE PRN FOR ITCHING Docusate Sodium 100 mg 08/27/19 08:05 08/27/19 21:51 Colace - PO 100 mg BID PRN Administration CONSTIPATION Hydromorphone HCl 10 mg 08/27/19 15:45 08/27/19 17:00 Hydromorphone 10 Mg/50 Ml-Ns FEATHER RENOVATOR 09/03/19 15:33 10 mg FEATHER RENOVATOR FARAZ Administration Protocol Lactated Ringer's 1,000 mls @ 75 mls/hr 08/27/19 14:38 08/27/19 14:40 Lactated Ringers Solution IV 75 mls/hr ASDIR FARAZ Administration Ondansetron HCl 4 mg 08/26/19 21:12 08/27/19 19:10 Zofran Injection IVPUSH 4 mg Q6H PRN Administration NAUSEA AND/OR VOMITING Ondansetron HCl 4 mg 08/27/19 15:31 Zofran Injection IVPUSH Q4H PRN NAUSEA AND/OR VOMITING Oxycodone HCl 5 mg 08/27/19 08:05 Roxicodone - PO Q6H PRN PAIN LEVEL 4 - 6 Oxycodone HCl 10 mg 08/27/19 08:05 08/27/19 14:48 Roxicodone - PO 10 mg Q6H PRN Administration PAIN LEVEL 7 - 10 Phenol/Menthol 1 spray 08/27/19 00:41 08/27/19 10:00 Chloraseptic - MM 1 spray Q2H PRN Administration SORE THROAT ASSESSMENT/PLAN: 68 YO F with no significant PMH. She is POD #3 after T-11 to S1 surgery 1. L1, L2, L3, L4, L5, S1 bilateral laminectomies & osteotomies (facetectomies) . 2. TL4-L5, L5-S1 posterior lumbar interbody fusion. 3. T11-S1 posterior instrumentation. 4. T11-S1 posterolateral arthrodesis. 5. Bone allograft. 6. Bone autograft. 7. Bone marrow aspiration. 8. Complex wound closure (60cm) #Ortho - Fluroscopy read pending - 1,750ml blood loss, 625ml cell savers, 3L crystalloids administered - Analgesia: Dilaudid IV 0.5mg IV Q15, no NSAIDs; received pre-op TLIP block w/ Exparel, FEATHER RENOVATOR if needed - PT/OT/Rehab, OOB. #Respiratory - Incentive spirometry q15 min. #ID -Post-op Ancef x 3 doses. #Renal - Baird care; d/c when ambulating. #FEN - NPO until flatus - RL @ 75 #DVT PPx: - Mechanical only: VLADISLAV's, SCD's. #Dispo - Stable, transfer to /S Visit type - Emergency Visit Emergency Visit: No - New Patient This patient is new to me today: No - Critical Care Critical Care patient: Yes Total Critical Care Time (in minutes): 36 Critical Care Statement: The care of this patient involved high complexity decision making to prevent further life threatening deterioration of the patient 's condition and/or to evaluate & treat vital organ system(s) failure or risk of failure. ATTENDING PHYSICIAN STATEMENT I saw and evaluated the patient. I reviewed the resident's note and discussed the case with the resident. I agree with the resident's findings and plan as documented. SUBJECTIVE: OBJECTIVE: ASSESSMENT AND PLAN:
[2019-08-28 08:13] LABS: BLOOD UREA NITROGEN 13.4 mg/dL (7-18); CALCIUM 8.5 mg/dL (8.5-10.1); CREATININE 0.7 mg/dL (0.55-1.3)
--- NOTE | 2019-08-28 12:15 | PN ---
Teaching Attending Note Name of Resident: Winston Knott ATTENDING PHYSICIAN STATEMENT I saw and evaluated the patient. I reviewed the resident's note and discussed the case with the resident. I agree with the resident's findings and plan as documented. SUBJECTIVE: Pt seen and examined in the ICU. Pain better controlled with PROPERTY INSURANCE INSPECTOR pump. No flatus yet. Low grade fevers. OBJECTIVE: Vital Signs Period Temp Pulse Resp BP Sys/No Pulse Ox Last 24 Hr 98.9 F-100.9 F 83-99 13-22 137-166/59-71 95-100 Intake & Output 08/25/19 08/26/19 08/27/19 08/28/19 23:59 23:59 23:59 23:59 Intake Total 3825 1300 1110 Output Total 2200 1800 500 Balance 1625 -500 610 Weight 108.046 kg Gen: NAD at rest Heart: RRR Lung: decreased breath sounds at the bases Abd: soft, nontender Ext: no edema CBC, BMP 08/28/19 07:00 08/28/19 07:00 Active Medications Acetaminophen (Ofirmev Injection -) 1,000 mg IVPB Q6H FARAZ Stop: 08/31/19 04:14 Last Admin: 08/28/19 10:58 Dose: 1,000 mg Benzocaine/Menthol (Cepacol Lozenge -) 1 each MM PRN PRN PRN Reason: SORE THROAT Last Admin: 08/27/19 14:41 Dose: 1 each Diazepam (Valium -) 10 mg PO Q6H PRN PRN Reason: PAIN SCALE 6-10 Stop: 08/30/19 18:08 Last Admin: 08/28/19 09:05 Dose: 10 mg Diphenhydramine HCl (Benadryl Injection -) 12.5 mg IVPUSH ONCE PRN PRN Reason: FOR ITCHING Docusate Sodium (Colace -) 100 mg PO BID PRN PRN Reason: CONSTIPATION Last Admin: 08/27/19 21:51 Dose: 100 mg Hydromorphone HCl (Hydromorphone 10 Mg/50 Ml-Ns) 10 mg PROPERTY INSURANCE INSPECTOR PROPERTY INSURANCE INSPECTOR FARAZ; Protocol Stop: 09/03/19 15:33 Last Admin: 08/27/19 17:00 Dose: 10 mg Lactated Ringer's (Lactated Ringers Solution) 1,000 mls @ 75 mls/hr IV ASDIR FARAZ Last Admin: 08/27/19 14:40 Dose: 75 mls/hr Ondansetron HCl (Zofran Injection) 4 mg IVPUSH Q6H PRN PRN Reason: NAUSEA AND/OR VOMITING Last Admin: 08/27/19 19:10 Dose: 4 mg Ondansetron HCl (Zofran Injection) 4 mg IVPUSH Q4H PRN PRN Reason: NAUSEA AND/OR VOMITING Oxycodone HCl (Roxicodone -) 5 mg PO Q6H PRN PRN Reason: PAIN LEVEL 4 - 6 Oxycodone HCl (Roxicodone -) 10 mg PO Q6H PRN PRN Reason: PAIN LEVEL 7 - 10 Last Admin: 08/27/19 14:48 Dose: 10 mg Phenol/Menthol (Chloraseptic -) 1 spray MM Q2H PRN PRN Reason: SORE THROAT Last Admin: 08/27/19 10:00 Dose: 1 spray ASSESSMENT AND PLAN: 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
[2019-08-28 12:21] VITALS: BMI 39.6
[2019-08-28] MEDS: oxyCODONE HCL 5 MG TABLET PO PRN ×2 (12:39→20:41)
[2019-08-28] MEDS: BENZOCAINE/MENTH/CETYLPYRD CL 1 EACH LOZENGE MM PRN ×2 (12:39→20:47)
--- NOTE | 2019-08-28 13:10 | PN ---
Progress Note (short form) - Note Progress Note: 68F s/p L1-S1 bilateral laminectomies; bilateral L1-S1 facetectomies; L3-L4, L4- L5, L5-S1 PLIF w/T11-S1 posterior instrumented spinal fusion POD #2. Pain well controlled. No acute events overnight. Pt. denies overnight history of headaches, chest pain, shortness of breath, nausea, vomiting, chills, & sweats. (+) Baird; (+) Flatus; (-) BM. All labs and vitals reviewed. PE: AAO x 3, NAD. T/L-Spine: Incision, dressing C/D/I. B/L LE M: L2-S1 intact, minimum 3/5. B/L LE S: L2-S1 2/2. 68F s/p L1-S1 bilateral laminectomies; bilateral L1-S1 facetectomies; L3-L4, L4- L5, L5-S1 PLIF w/T11-S1 posterior instrumented spinal fusion POD #2. -Pain control: NO NSAID's. -Nursing care: fastidious avoidance of decubitus ulcers; log roll/place on wedge pillows every 2 hours; rolled up towels under the ankles to offload the heels. -DVT PPx: -Mechanical only: VLADISLAV's, SCD's. -Chemical: None. -Incentive spirometry q15 min. -NPO until flatus. -PT/OT/Rehab, OOB. -WBAT B/L LE. -Raised toilet seat. -No bending, lifting (>5 lbs), or twisting for 9-12 months. -Care per ICU & medical hospitalist team. -Discharge planning: [facility]; f/u 7-10 days after discharge from [place] at [facility] office; call for appointment; . -Will follow. Eliezer Villa MD (Orthopaedic Surgery).
--- NOTE | 2019-08-28 13:13 | PN ---
Progress Note (short form) - Note Progress Note: 68F s/p L1-S1 bilateral laminectomies; bilateral L1-S1 facetectomies; L3-L4, L4- L5, L5-S1 PLIF w/T11-S1 posterior instrumented spinal fusion POD #1. Pain well controlled. No acute events overnight. Pt. denies overnight history of headaches, chest pain, shortness of breath, vomiting, chills, & sweats. (+) Intermittent nausea. (+) Baird; (+) Flatus; (-) BM. All labs and vitals reviewed. PE: AAO x 3, NAD. T/L-Spine: Incision, dressing C/D/I. B/L LE M: L2-S1 intact, minimum 3/5. B/L LE S: L2-S1 2/2. 68F s/p L1-S1 bilateral laminectomies; bilateral L1-S1 facetectomies; L3-L4, L4- L5, L5-S1 PLIF w/T11-S1 posterior instrumented spinal fusion POD #1. -Pain control: NO NSAID's. -Nursing care: fastidious avoidance of decubitus ulcers; log roll/place on wedge pillows every 2 hours; rolled up towels under the ankles to offload the heels. -DVT PPx: -Mechanical only: VLADISLAV's, SCD's. -Chemical: None. -Incentive spirometry q15 min. -NPO until flatus. -PT/OT/Rehab, OOB. -WBAT B/L LE. -Raised toilet seat. -No bending, lifting (>5 lbs), or twisting for 9-12 months. -Care per ICU & medical hospitalist team. -Discharge planning: [facility]; f/u 7-10 days after discharge from [place] at [facility] office; call for appointment; . -Will follow. Elder Villa MD (Orthopaedic Surgery).
[2019-08-28] MEDS: HYDROmorphone *PCA* 10MG/50ML DISP.SYRIN PCA SCH (15:04)
--- NOTE | 2019-08-28 16:29 | PATH ---
Surgical Pathology Report Patient Name: CALLI MTZ [facility]. Rec. #: [id number] /Age/Gender: 1950 (Age: 68) / F Account: [id number] Location: [facility] MONITOR Taken: 08/26/2019 Received: 08/27/2019 Reported: 08/28/2019 Physicians: Eliezer Villa M.D. Specimen(s) Received DISC L4-5, L5-S1 Clinical History Intravertebral disc disorder with radiculopathy Final Diagnosis L4-L5, L5-S1 DISC, DISCECTOMY: FRAGMENTS OF BONE AND FIBROCARTILAGINOUS TISSUE WITH FOCAL DEGENERATIVE CHANGE. Electronically Signed Ping Conrad M.D. Gross Description Received in formalin labeled "L4-L5, L5-S1 disc," is a 4.0 x 3.5 x 0.4 cm aggregate of frederick fragments of fibrocartilaginous tissue. A sales representative sales manager portion is submitted in one cassette. 08/27/2019 saudi08/27/2019
[2019-08-28] MEDS: ONDANSETRON 4 MG/2 ML VIAL IVPUSH PRN (17:16)
[2019-08-28] MEDS: LACTATED RINGERS SOLUTION 1,000 ML IV SCH (17:33)
[2019-08-28] MEDS ORDERED: PHENOL 177 ML SPRAY BOTTLE MM PRN (19:10)
[2019-08-28] MEDS ORDERED: oxyCODONE HCL 5 MG TABLET PO PRN (19:10)
[2019-08-28] MEDS ORDERED: DOCUSATE SODIUM 100 MG CAPSULE (FP) PO PRN (19:10)
[2019-08-28] MEDS ORDERED: ONDANSETRON 4 MG/2 ML VIAL IVPUSH PRN (19:10)
[2019-08-28] MEDS ORDERED: SIMETHICONE 40 MG/0.6 ML BOTTLE PO PRN (21:40)
[2019-08-28] MEDS ORDERED: MORPHINE SULFATE 2 MG/ML VIAL IVPUSH PRN ×2 (22:23→22:29)
[2019-08-28] MEDS ORDERED: morphine CARPU-JECT 4 MG/1 ML DISP.SYRIN IVPUSH PRN (22:26)
--- NOTE | 2019-08-29 00:59 | PN ---
Progress Note (short form) - Note Progress Note: Anesthesia/pain management follow up POD#2, patient awake and alert, in icu. 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 Will follow up tomorrow.
[2019-08-29] MEDS: ACETAMINOPHEN 1000 MG/100 ML VIAL (NON FORMULARY) IVPB SCH ×4 (05:21→23:41)
[2019-08-29] MEDS ORDERED: SIMETHICONE 80 MG TAB.CHEW (FP) PO PRN (06:44)
[2019-08-29 07:24] LABS: HEMATOCRIT 29.8 % (32.4-45.2); HEMOGLOBIN 9.9 GM/dL (10.7-15.3); MCH 27.6 pg (25.7-33.7); MCHC 33.4 g/dl (32.0-36.0); MEAN CELL VOLUME 82.9 fl (80-96); MEAN PLT VOLUME 7.8 fl (7.5-11.1); PLATELET COUNT 183 K/MM3 (134-434); RDW 13.8 % (11.6-15.6); WHITE BLOOD COUNT 10.8 K/mm3 (4.0-10.0)
[2019-08-29 07:41] LABS: BLOOD UREA NITROGEN 10.2 mg/dL (7-18); CALCIUM 8.4 mg/dL (8.5-10.1); CREATININE 0.5 mg/dL (0.55-1.3); MAGNESIUM 1.9 mg/dL (1.8-2.4); POTASSIUM 3.7 mmol/L (3.5-5.1)
[2019-08-29] MEDS ORDERED: NAPH,MB-DB/K PH,MBDB POWDER PACKET PO ONE (08:16)
--- NOTE | 2019-08-29 08:44 | PN ---
Progress Note (short form) - Note Progress Note: HPI: Pt only able to stand with LAY OUT CARPENTER on board. Pt reports continued adequate pain control. Pain still exacerbated with movements and continues to use incentive spirometry. Reports abdominal pain overnight, but refused any XR. Pt reports some flatus Vital Signs Temperature 98.6 F 08/29/19 08:00 Pulse Rate 80 08/29/19 08:00 Respiratory Rate 12 08/29/19 08:00 Blood Pressure 143/61 08/29/19 08:00 O2 Sat by Pulse Oximetry (%) 100 08/29/19 06:00 GENERAL: Awake, alert, and fully oriented, in no acute distress. HEENT: NC/AT, JOSE< sclera anicteric, MMM LUNGS: CTA bilaterally. No wheezes, and no crackles. No accessory muscle use. HEART: RRR, normal S1 and S2 without murmur ABDOMEN: Soft, NT/ND, + bowel sounds, no guarding. EXTREMITIES: 2+ pulses, warm, well-perfused. No calf tenderness. No peripheral edema. NEUROLOGICAL: package delivery driver II-XII intact. Strength of UExt b/l 5/5. Strength of LExt 5/ 5 with plantar and dorsal flexion, 4/5 with hip flexion. (movement limited by pain) Normal speech SKIN: Warm, dry, normal turgor, no rashes or lesions noted CBC, BMP 08/29/19 05:40 08/29/19 05:40 Active Medications Acetaminophen (Ofirmev Injection -) 1,000 mg IVPB Q6H FARAZ Stop: 08/31/19 04:14 Last Admin: 08/29/19 05:21 Dose: 1,000 mg Benzocaine/Menthol (Cepacol Lozenge -) 1 each MM Q6H PRN PRN Reason: SORE THROAT Last Admin: 08/28/19 20:47 Dose: 1 each Diazepam (Valium -) 10 mg PO Q6H PRN PRN Reason: PAIN SCALE 6-10 Stop: 08/30/19 18:08 Last Admin: 08/28/19 09:05 Dose: 10 mg Diphenhydramine HCl (Benadryl Injection -) 12.5 mg IVPUSH ONCE PRN PRN Reason: FOR ITCHING Hydromorphone HCl (Hydromorphone 10 Mg/50 Ml-Ns) 10 mg LAY OUT CARPENTER LAY OUT CARPENTER FARAZ; Protocol Stop: 09/03/19 15:33 Last Admin: 08/28/19 15:04 Dose: 10 mg Lactated Ringer's (Lactated Ringers Solution) 1,000 mls @ 75 mls/hr IV ASDIR FARAZ Last Admin: 08/28/19 17:33 Dose: 75 mls/hr Morphine Sulfate (Morphine Sulfate) 2 mg IVPUSH Q4H PRN PRN Reason: PAIN LEVEL 6-10 Ondansetron HCl (Zofran Injection) 4 mg IVPUSH Q6H PRN PRN Reason: NAUSEA AND/OR VOMITING Last Admin: 08/28/19 21:46 Dose: 4 mg Oxycodone HCl (Roxicodone -) 5 mg PO Q6H PRN PRN Reason: PAIN LEVEL 4 - 6 Oxycodone HCl (Roxicodone -) 10 mg PO Q6H PRN PRN Reason: PAIN LEVEL 7 - 10 Last Admin: 08/28/19 20:41 Dose: 10 mg Phenol/Menthol (Chloraseptic -) 1 spray MM Q2H PRN PRN Reason: SORE THROAT Last Admin: 08/28/19 20:46 Dose: 1 spray Simethicone (Mylicon -) 80 mg PO QID PRN PRN Reason: gas pain ASSESSMENT/PLAN: POD #2 of L1-S1 bilateral laminectomies; bilateral L1-S1 facetectomies L3-L4, L4-L5, L5-S1 PLIF w/T11-S1 posterior instrumented spinal fusion Normocytic anemia from blood loss (improved) Odynophagia Abdominal pain --Continued physical therapy --Will benefit from STR; CM aware --Valium for spasms on board --Avoid NSAIDs if possible --Tylenol to augment pain as needed --Continue Oxycodone 5mg/10mg base d on pain scale; minimize LAY OUT CARPENTER --Pt refusing AXR --Simethicone PRN for gaseous formation --Will discontinue IVF to avoid edematous bowel --Once passing flatus can advance diet --Once mobility increases can discontinue tapia and ToV begins --Encouraged incentive spirometry use --Will have to f/u with Dr. Villa post-op FEN: Fluids: Can discontinue IVF Electrolyte abnormalities: None Nutrition: PPX: DVT - Scds GI - Not indicated Dispo: Transfer to / already in orders Case discussed with Dr. Goodwin and ICU team Scooter Gibbons, DO - IM PGY-3 <Scooter Gibbons - Last Filed: 08/29/19 21:41> - Note Progress Note: Seen and examined; agree with above aside from as supplemented below by myself. Personally verified all historical information and yang PE findings. Independently reviewed all labs and diagnostics. I discussed the case at length with the resident and consulting services. All questions answered. Seen in ICU Pain controlled; no new issues noted. Abdominal pain likely postop ileus per discussion w/ sgy 10 sys ROS done and negative aside from HPI VS, labs, imaging reviewed NAD, AAO, resting in bed NC AT EOMI Dressing c/d/i Neurovascular intact Normal mood, appropriate behavior ASSESSMENT/PLAN: Patient presents s/p L1-S1 posterior decompression & T11-S1 instrumented fusion (08/26/2019). Agree with above plan Full Code SCDS Dispo pending Monitor for BM <Christopher Goodwin - Last Filed: 09/14/19 09:54>
[2019-08-29] MEDS: LACTATED RINGERS SOLUTION 1,000 ML IV SCH (09:16)
[2019-08-29] MEDS: diazePAM 5 MG TABLET PO PRN ×2 (09:24→14:57)
[2019-08-29] MEDS: BENZOCAINE/MENTH/CETYLPYRD CL 1 EACH LOZENGE MM PRN (09:36)
--- NOTE | 2019-08-29 11:44 | PN ---
Teaching Attending Note Name of Resident: Winston Knott ATTENDING PHYSICIAN STATEMENT I saw and evaluated the patient. I reviewed the resident's note and discussed the case with the resident. I agree with the resident's findings and plan as documented. SUBJECTIVE: Pt seen and examined in the ICU. Pain better controlled. Had flatus overnight. Some nausea. OBJECTIVE: Vital Signs Period Temp Pulse Resp BP Sys/No Pulse Ox Last 24 Hr 98.0 F-99 F 72-100 12-27 120-168/47-79 89-100 Intake & Output 08/26/19 08/27/19 08/28/19 08/29/19 23:59 23:59 23:59 23:59 Intake Total 3825 1300 2010 100 Output Total 2200 1800 800 Balance 1625 -500 1210 100 Weight 108.046 kg 107.955 kg 111.13 kg Gen: NAD at rest Heart: RRR Lung: decreased breath sounds at the bases Abd: softly distended, nontender Ext: no edema CBC, BMP 08/29/19 05:40 08/29/19 05:40 Active Medications Acetaminophen (Ofirmev Injection -) 1,000 mg IVPB Q6H FARAZ Stop: 08/31/19 04:14 Last Admin: 08/29/19 09:23 Dose: 1,000 mg Benzocaine/Menthol (Cepacol Lozenge -) 1 each MM Q6H PRN PRN Reason: SORE THROAT Last Admin: 08/29/19 09:36 Dose: 1 each Diazepam (Valium -) 10 mg PO Q6H PRN PRN Reason: PAIN SCALE 6-10 Stop: 08/30/19 18:08 Last Admin: 08/29/19 09:24 Dose: 10 mg Diphenhydramine HCl (Benadryl Injection -) 12.5 mg IVPUSH ONCE PRN PRN Reason: FOR ITCHING Hydromorphone HCl (Hydromorphone 10 Mg/50 Ml-Ns) 10 mg CRIMINAL JUSTICE SOCIAL WORKER CRIMINAL JUSTICE SOCIAL WORKER FARAZ; Protocol Stop: 09/03/19 15:33 Last Admin: 08/28/19 15:04 Dose: 10 mg Morphine Sulfate (Morphine Sulfate) 2 mg IVPUSH Q4H PRN PRN Reason: PAIN LEVEL 6-10 Ondansetron HCl (Zofran Injection) 4 mg IVPUSH Q6H PRN PRN Reason: NAUSEA AND/OR VOMITING Last Admin: 08/28/19 21:46 Dose: 4 mg Oxycodone HCl (Roxicodone -) 5 mg PO Q6H PRN PRN Reason: PAIN LEVEL 4 - 6 Oxycodone HCl (Roxicodone -) 10 mg PO Q6H PRN PRN Reason: PAIN LEVEL 7 - 10 Last Admin: 08/28/19 20:41 Dose: 10 mg Phenol/Menthol (Chloraseptic -) 1 spray MM Q2H PRN PRN Reason: SORE THROAT Last Admin: 08/28/19 20:46 Dose: 1 spray Simethicone (Mylicon -) 80 mg PO QID PRN PRN Reason: gas pain ASSESSMENT AND PLAN: Thoracolumbar Kyphoscoliosis with Spinal Stenosis with Radiculopathy and Neurogenic Claudication s/p L1-S1 Bilateral Laminectomies/PLIF/Posterior Instrumentation POD #1 Anemia - pain control - incentive spirometry - IVF - PO as tolerated - d/c tapia when OOB - activity/dispo/DVT prophylaxis per surgery
--- NOTE | 2019-08-29 12:12 | PN ---
Progress Note (short form) - Note Progress Note: Anesthesia HEALTH SERVICES INFORMATION SPECIALIST round POD#3, S/P multiple level (Th11-S1) laminectomy/fusion. On HEALTH SERVICES INFORMATION SPECIALIST. Pat seen and examined. Pain scale 5/10. VSS. will try PT today. Will continue HEALTH SERVICES INFORMATION SPECIALIST today to tolerate PT. Will consider D/C HEALTH SERVICES INFORMATION SPECIALIST tomorrow. Will follow up.
[2019-08-29] MEDS: HYDROmorphone *PCA* 10MG/50ML DISP.SYRIN PCA SCH ×2 (13:00→15:45)
[2019-08-29] MEDS: oxyCODONE HCL 5 MG TABLET PO PRN ×2 (17:00→22:46)
[2019-08-29] MEDS ORDERED: FAMOTIDINE 20 MG TABLET PO ONE (17:49)
[2019-08-30] MEDS: diazePAM 5 MG TABLET PO PRN ×4 (02:32→20:32)
--- NOTE | 2019-08-30 03:07 | PN ---
Physical Exam: SUBJECTIVE: Patient seen and examined by the bedside, complaining of lower back pain, has been belching and has passed gas. Complained of abdominal distension overnight, but refused AXR as well as NGT. Pain subsided after she experienced flatus. OBJECTIVE: Vital Signs Period Temp Pulse Resp BP Sys/No Pulse Ox Last 24 Hr 97.9 F-99.3 F 77-91 12-18 120-158/47-73 98-100 GENERAL: On NC. AOx3 HEAD: Normal with no signs of trauma. EYES: ANTONINO, EOMI EARS, NOSE, THROAT: Dry mucus membranes LUNGS: Decreased breath sounds B/L, clear B/L HEART: RRR, no murmurs ABDOMEN: Soft, nontender, not distended LOWER EXTREMITIES: 2+ pulses, warm, well-perfused NEUROLOGICAL: Unable to fully assess motor function due to back pain when she moves legs, sensations intact B/L SKIN: Warm, dry, normal turgor, no rashes or lesions noted. Laboratory Results - last 24 hr 08/29/19 08/29/19 05:40 05:40 WBC 10.8 H RBC 3.60 Hgb 9.9 L Hct 29.8 L MCV 82.9 MCH 27.6 MCHC 33.4 RDW 13.8 Plt Count 183 MPV 7.8 Sodium 137 Potassium 3.7 Chloride 103 Carbon Dioxide 28 Anion Gap 6 L BUN 10.2 Creatinine 0.5 L Est GFR (CKD-EPI)AfAm 113.65 Est GFR (CKD-EPI)NonAf 98.06 Random Glucose 82 Calcium 8.4 L Phosphorus 2.0 L Magnesium 1.9 Active Medications Generic Name Dose Route Start Last Admin Trade Name Freq PRN Reason Stop Dose Admin Acetaminophen 1,000 mg 08/28/19 04:15 08/29/19 23:41 Ofirmev Injection - IVPB 08/31/19 04:14 Not Given Q6H FARAZ Benzocaine/Menthol 1 each 08/28/19 19:10 08/29/19 09:36 Cepacol Lozenge - MM 1 each Q6H PRN Administration SORE THROAT Diazepam 10 mg 08/27/19 18:14 08/30/19 02:32 Valium - PO 08/30/19 18:08 10 mg Q6H PRN Administration PAIN SCALE 6-10 Diphenhydramine HCl 12.5 mg 08/27/19 15:31 Benadryl Injection - IVPUSH ONCE PRN FOR ITCHING Hydromorphone HCl 10 mg 08/27/19 15:45 08/29/19 15:45 Hydromorphone 10 Mg/50 Ml-Ns FILM HISTORIAN 09/03/19 15:33 Not Given FILM HISTORIAN FARAZ Protocol Morphine Sulfate 2 mg 08/28/19 22:29 Morphine Sulfate IVPUSH Q4H PRN PAIN LEVEL 6-10 Ondansetron HCl 4 mg 08/28/19 19:10 08/28/19 21:46 Zofran Injection IVPUSH 4 mg Q6H PRN Administration NAUSEA AND/OR VOMITING Oxycodone HCl 5 mg 08/28/19 19:10 Roxicodone - PO Q6H PRN PAIN LEVEL 4 - 6 Oxycodone HCl 10 mg 08/28/19 19:10 08/29/19 17:00 Roxicodone - PO 10 mg Q6H PRN Administration PAIN LEVEL 7 - 10 Phenol/Menthol 1 spray 08/28/19 19:10 08/28/19 20:46 Chloraseptic - MM 1 spray Q2H PRN Administration SORE THROAT Simethicone 80 mg 08/29/19 06:44 08/29/19 13:07 Mylicon - PO 80 mg QID PRN Administration gas pain ASSESSMENT/PLAN: 68 YO F with no significant PMH. She is POD #3 after T-11 to S1 surgery 1. L1, L2, L3, L4, L5, S1 bilateral laminectomies & osteotomies (facetectomies) . 2. TL4-L5, L5-S1 posterior lumbar interbody fusion. 3. T11-S1 posterior instrumentation. 4. T11-S1 posterolateral arthrodesis. 5. Bone allograft. 6. Bone autograft. 7. Bone marrow aspiration. 8. Complex wound closure (60cm) #Ortho - Fluroscopy read pending - 1,750ml blood loss, 625ml cell savers, 3L crystalloids administered - Analgesia: Dilaudid IV 0.5mg IV Q15, no NSAIDs; received pre-op TLIP block w/ Exparel, FILM HISTORIAN if needed - PT/OT/Rehab, OOB. #Respiratory - Incentive spirometry q15 min. #ID -Post-op Ancef x 3 doses. #Renal - Baird care; d/c when ambulating. #FEN - NPO until flatus - RL @ 75 #DVT PPx: - Mechanical only: VLADISLAV's, SCD's. #Dispo - Stable for transfer to /S Visit type - Emergency Visit Emergency Visit: No - New Patient This patient is new to me today: No - Critical Care Critical Care patient: Yes Total Critical Care Time (in minutes): 42 Critical Care Statement: The care of this patient involved high complexity decision making to prevent further life threatening deterioration of the patient 's condition and/or to evaluate & treat vital organ system(s) failure or risk of failure. ATTENDING PHYSICIAN STATEMENT I saw and evaluated the patient. I reviewed the resident's note and discussed the case with the resident. I agree with the resident's findings and plan as documented. SUBJECTIVE: OBJECTIVE: ASSESSMENT AND PLAN:
[2019-08-30 06:28] LABS: HEMATOCRIT 28.6 % (32.4-45.2); HEMOGLOBIN 9.5 GM/dL (10.7-15.3); MCH 27.4 pg (25.7-33.7); MCHC 33.2 g/dl (32.0-36.0); MEAN CELL VOLUME 82.5 fl (80-96); PLATELET COUNT 217 K/MM3 (134-434); RBC 3.46 M/mm3 (3.60-5.2); RDW 13.7 % (11.6-15.6); WHITE BLOOD COUNT 8.5 K/mm3 (4.0-10.0)
[2019-08-30 06:49] LABS: BLOOD UREA NITROGEN 9.9 mg/dL (7-18); CALCIUM 8.3 mg/dL (8.5-10.1); CREATININE 0.4 mg/dL (0.55-1.3); POTASSIUM 3.7 mmol/L (3.5-5.1)
--- NOTE | 2019-08-30 07:01 | PN ---
Progress Note (short form) - Note Progress Note: HPI: Pt passing flatus today. Reports being in pain, but still minimal mobilization. Vital Signs Temperature 99.6 F 08/30/19 08:00 Pulse Rate 83 08/30/19 08:00 Respiratory Rate 17 08/30/19 08:00 Blood Pressure 154/70 08/30/19 08:00 O2 Sat by Pulse Oximetry (%) 100 08/29/19 21:00 GENERAL: Awake, alert, and fully oriented, in no acute distress. HEENT: NC/AT, JOSE< sclera anicteric, MMM LUNGS: CTA bilaterally. No wheezes, and no crackles. No accessory muscle use. HEART: RRR, normal S1 and S2 without murmur ABDOMEN: Soft, NT/ND, normoactive bowel sounds, no guarding. EXTREMITIES: 2+ pulses, No calf tenderness. No peripheral edema. NEUROLOGICAL: cook roast II-XII intact. Strength of UExt b/l 5/5. 4+/5 with hip flexion. (movement limited by pain). Sensation intact SKIN: Warm, dry, normal turgor, no rashes or lesions noted CBC, BMP 08/30/19 05:50 08/30/19 06:00 Active Medications Acetaminophen (Ofirmev Injection -) 1,000 mg IVPB Q6H FARAZ Stop: 08/31/19 04:14 Last Admin: 08/30/19 07:09 Dose: Not Given Benzocaine/Menthol (Cepacol Lozenge -) 1 each MM Q6H PRN PRN Reason: SORE THROAT Last Admin: 08/29/19 09:36 Dose: 1 each Diazepam (Valium -) 10 mg PO Q6H PRN PRN Reason: PAIN SCALE 6-10 Stop: 08/30/19 18:08 Last Admin: 08/30/19 02:32 Dose: 10 mg Diphenhydramine HCl (Benadryl Injection -) 12.5 mg IVPUSH ONCE PRN PRN Reason: FOR ITCHING Hydromorphone HCl (Hydromorphone 10 Mg/50 Ml-Ns) 10 mg SILVICULTURE FORESTER SILVICULTURE FORESTER FARAZ; Protocol Stop: 09/03/19 15:33 Last Admin: 08/30/19 07:13 Dose: 10 mg Morphine Sulfate (Morphine Sulfate) 2 mg IVPUSH Q4H PRN PRN Reason: PAIN LEVEL 6-10 Ondansetron HCl (Zofran Injection) 4 mg IVPUSH Q6H PRN PRN Reason: NAUSEA AND/OR VOMITING Last Admin: 08/28/19 21:46 Dose: 4 mg Oxycodone HCl (Roxicodone -) 5 mg PO Q6H PRN PRN Reason: PAIN LEVEL 4 - 6 Last Admin: 08/30/19 07:40 Dose: 5 mg Oxycodone HCl (Roxicodone -) 10 mg PO Q6H PRN PRN Reason: PAIN LEVEL 7 - 10 Last Admin: 08/29/19 22:46 Dose: 10 mg Phenol/Menthol (Chloraseptic -) 1 spray MM Q2H PRN PRN Reason: SORE THROAT Last Admin: 08/28/19 20:46 Dose: 1 spray Simethicone (Mylicon -) 80 mg PO QID PRN PRN Reason: gas pain Last Admin: 08/29/19 13:07 Dose: 80 mg ASSESSMENT/PLAN: POD #2 of L1-S1 bilateral laminectomies; bilateral L1-S1 facetectomies L3-L4, L4-L5, L5-S1 PLIF w/T11-S1 posterior instrumented spinal fusion Normocytic anemia from blood loss (improved) Odynophagia Abdominal pain --Continued physical therapy --Will benefit from STR; CM aware --Valium for spasms on board --Avoid NSAIDs if possible --Tylenol to augment pain as needed --STOP SILVICULTURE FORESTER pump today --Oxycontin 10mg BID PO --Continue Oxycodone 5mg/10mg based on pain scale --Pt refusing AXR --Simethicone PRN for gaseous formation --Will discontinue IVF to avoid edematous bowel --Pt now passing flatus with alleviation of pain --Continue mobilization of patient as this will help bowel --OOB for all meals --Diet advanced last PM; adv as tolerated --Discontinue tapia and can use external catheter if necessary --Encouraged incentive spirometry use --Will have to f/u with Dr. Villa post-op FEN: Fluids: Can discontinue IVF Electrolyte abnormalities: None Nutrition: Adv as tolerated PPX: DVT - Scds GI - Not indicated Dispo: Transfer to / already in orders Case discussed with Dr. Goodwin and ICU team Scooter Gibbons, DO - IM PGY-3 <Scooter Gibbons - Last Filed: 08/30/19 10:50> - Note Progress Note: Seen and examined; agree with above aside from as supplemented below by myself. Personally verified all historical information and yang PE findings. Independently reviewed all labs and diagnostics. I discussed the case at length with the resident and consulting services. All questions answered. Seen in ICU Pain controlled; no new issues noted. Abdominal pain resolved with flatus. Did refuse recommended AXR. S/w resident team. 10 sys ROS done and negative aside from HPI VS, labs, imaging reviewed NAD, AAO, resting in bed NC AT EOMI Dressing c/d/i Neurovascular intact Normal mood, appropriate behavior ASSESSMENT/PLAN: Patient presents s/p L1-S1 posterior decompression & T11-S1 instrumented fusion (08/26/2019). Agree with above plan Full Code SCDS Dispo pending Abd pain resolved Signing out to weekend coverage; pending DC if medically stable and xf to ms <Christopher Goodwin - Last Filed: 09/14/19 09:56>
[2019-08-30] MEDS: ACETAMINOPHEN 1000 MG/100 ML VIAL (NON FORMULARY) IVPB SCH ×2 (07:09→09:15)
[2019-08-30] MEDS: HYDROmorphone *PCA* 10MG/50ML DISP.SYRIN PCA SCH (07:13)
--- NOTE | 2019-08-30 08:20 | PN ---
Progress Note (short form) - Note Progress Note: Anesthesia /Pain S:Alert and awake O: Vital Signs Temperature 99.6 F 08/30/19 08:00 Pulse Rate 83 08/30/19 08:00 Respiratory Rate 17 08/30/19 08:00 Blood Pressure 154/70 08/30/19 08:00 O2 Sat by Pulse Oximetry (%) 100 08/29/19 21:00 CBC, BMP 08/30/19 05:50 08/30/19 06:00 A/P: POD#4, S/P multiple level (Th11-S1) laminectomy/fusion. On INVENTORY WORKER. Will continue INVENTORY WORKER today. Scooter Alexis MD
--- NOTE | 2019-08-30 09:02 | PN ---
Progress Note (short form) - Note Progress Note: surgery 68F s/p L1-S1 bilateral laminectomies; bilateral L1-S1 facetectomies; L3-L4, L4- L5, L5-S1 PLIF w/T11-S1 posterior instrumented spinal fusion POD #4. Pain well controlled. No acute events overnight. She has not ambulated yet with PT but she has sat up at the bedside. She is tolerating her clear diet and denies any headaches, chest pain, shortness of breath, nausea, vomiting, chills , & sweats. (+) Tapia; (+) Flatus yesterday; (-) BM. Vital Signs Temp 99.5 F 08/30/19 10:00 Pulse 80 08/30/19 10:00 Resp 17 08/30/19 10:00 BP 127/60 08/30/19 10:00 Pulse Ox 98 08/30/19 09:13 Intake & Output 08/29/19 08/29/19 08/30/19 11:59 23:59 11:59 Intake Total 100 970 120 Output Total 450 200 Balance 100 520 -80 Weight 245 lb 250 lb 5 oz Intake: IV 150 Lactated Ringers Solution 150 1,000 ml @ 75 mls/hr IV ASDIR FARAZ Rx#:[id number] IVPB 100 100 Oral 720 120 Output: Urine 450 200 Tapia 450 200 Other: Voiding Method Indwelling Catheter Indwelling Catheter Indwelling Catheter Bowel Movement No Weight Measurement Method Built in Bedscale Built in Bedscale CBC, BMP 08/30/19 05:50 08/30/19 06:00 PE: AAO x 3, NAD. Unlabored resp on RA T/L-Spine: dressing C/D/I with surrounding tissue intact and no evidence of tracking erythema, collection or active d/c. B/L LE compartments soft, supple and non-tender with + DP pulses and 5/5 dorsi/ plantar flexion. Problem List - Problems (1) Hx of decompressive lumbar laminectomy Assessment/Plan: 68F s/p L1-S1 bilateral laminectomies; bilateral L1-S1 facetectomies; L3-L4, L4- L5, L5-S1 PLIF w/T11-S1 posterior instrumented spinal fusion POD #4. -Pain control: d/c HOTEL DIRECTOR start oral pain regimen NO NSAID's. -Nursing care: fastidious avoidance of decubitus ulcers; log roll/place on wedge pillows every 2 hours; rolled up towels under the ankles to offload the heels. -DVT PPx: -Mechanical only: VLADISLAV's, SCD's. -Chemical: None. -Encourage aggressive Incentive spirometry q15 min. -Regular diet. -OOB to chair for all meals and as tolerated, b/l arm supports. -PT/OT/Rehab, OOB. -WBAT B/L LE. -Raised toilet seat. -D/c tapia now -No bending, lifting (>5 lbs), or twisting for 9-12 months. -Care per ICU & medical hospitalist team. -step down to floor today -Discharge planning: [facility]; f/u 7-10 days after discharge from [facility] at [facility] office; call for appointment; . Evaluation and plan discussed with Dr Eliezer Villa. Code(s): Z98.890 - OTHER SPECIFIED POSTPROCEDURAL STATES
[2019-08-30] MEDS ORDERED: oxyCODONE HCL 5 MG TABLET PO PRN (09:57)
[2019-08-30] MEDS: ACETAMINOPHEN 325 MG TABLET (FP) PO SCH ×3 (10:25→22:05)
--- NOTE | 2019-08-30 11:05 | PN ---
Teaching Attending Note Name of Resident: Sherice Rodriguez ATTENDING PHYSICIAN STATEMENT I saw and evaluated the patient. I reviewed the resident's note and discussed the case with the resident. I agree with the resident's findings and plan as documented. SUBJECTIVE: Patient seen and examined in the ICU. Awake and alert. Still with low back pain 05/25. 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 OBJECTIVE: Intake & Output 08/27/19 08/28/19 08/29/19 08/30/19 23:59 23:59 23:59 23:59 Intake Total 1300 2010 1070 120 Output Total 1800 800 450 200 Balance -500 1210 620 -80 Weight 238 lb 3.2 oz 238 lb 245 lb 250 lb 5 oz Last Vital Signs Temp Pulse Resp BP Pulse Ox 99.5 F 80 17 127/60 98 08/30/19 10:00 08/30/19 10:00 08/30/19 10:00 08/30/19 10:00 08/30/19 09:13 Active Medications Acetaminophen (Tylenol -) 650 mg PO Q6H FARAZ Last Admin: 08/30/19 10:25 Dose: Not Given Benzocaine/Menthol (Cepacol Lozenge -) 1 each MM Q6H PRN PRN Reason: SORE THROAT Last Admin: 08/29/19 09:36 Dose: 1 each Diazepam (Valium -) 10 mg PO Q6H PRN PRN Reason: PAIN SCALE 6-10 Stop: 08/30/19 18:08 Last Admin: 08/30/19 08:35 Dose: 10 mg Diphenhydramine HCl (Benadryl Injection -) 12.5 mg IVPUSH ONCE PRN PRN Reason: FOR ITCHING Ondansetron HCl (Zofran Injection) 4 mg IVPUSH Q6H PRN PRN Reason: NAUSEA AND/OR VOMITING Last Admin: 08/28/19 21:46 Dose: 4 mg Oxycodone HCl (Roxicodone -) 5 mg PO Q4H PRN PRN Reason: PAIN LEVEL 1-5 Oxycodone HCl (Roxicodone -) 10 mg PO Q4H PRN PRN Reason: PAIN LEVEL 6-10 Oxycodone HCl (Oxycontin -) 10 mg PO BID FARAZ Phenol/Menthol (Chloraseptic -) 1 spray MM Q2H PRN PRN Reason: SORE THROAT Last Admin: 08/28/19 20:46 Dose: 1 spray Simethicone (Mylicon -) 80 mg PO QID PRN PRN Reason: gas pain Last Admin: 08/29/19 13:07 Dose: 80 mg Gen: Awake and alert, uncomfortable due to pain Heart: RRR Lung: decreased breath sounds at the bases Abd: softly distended, nontender Ext: no edema Laboratory Results - last 24 hr 08/30/19 08/30/19 05:50 06:00 WBC 8.5 RBC 3.46 L Hgb 9.5 L Hct 28.6 L MCV 82.5 MCH 27.4 MCHC 33.2 RDW 13.7 Plt Count 217 MPV 7.0 L D Sodium 137 Potassium 3.7 Chloride 101 Carbon Dioxide 31 Anion Gap 5 L BUN 9.9 Creatinine 0.4 L Est GFR (CKD-EPI)AfAm 122.31 Est GFR (CKD-EPI)NonAf 105.53 Random Glucose 93 Calcium 8.3 L Magnesium 2.0 ASSESSMENT AND PLAN: 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
[2019-08-30] MEDS: oxyCODONE HCL 10 MG SUSTAINED ACTING TABLET PO SCH ×2 (11:26→22:03)
--- NOTE | 2019-08-30 12:35 | PN ---
Physical Exam: SUBJECTIVE: Patient seen and examined. Complains of pain at surgical site. Has been able to get out of bed with PT. She is passing gas. OBJECTIVE: Vital Signs Period Temp Pulse Resp BP Sys/No Pulse Ox Last 24 Hr 97.9 F-99.6 F 79-91 16-18 123-165/58-73 98-100 GENERAL: The patient is awake, alert, and fully oriented, in no acute distress. HEAD: Normal with no signs of trauma. EYES: EOMI, sclera anicteric NECK: Trachea midline, full range of motion, supple. LUNGS: Breath sounds equal, clear to auscultation bilaterally, no wheezes, no crackles, no accessory muscle use. HEART: Regular rate and rhythm, S1, S2 without murmur, rub or gallop. ABDOMEN: soft, nontender, nondistended, normoactive bowel sounds EXTREMITIES: 2+ pulses, warm, well-perfused, no edema. ROM of left LE limited due to pain. NEUROLOGICAL: Normal speech, gait not observed. 4/5 strength bilateral lower extremities. 5/5 strength bilateral upper extremities. Sensation intact throughout. PSYCH: Normal mood, normal affect. SKIN: Warm, dry, normal turgor, no rashes or lesions noted Laboratory Results - last 24 hr 08/30/19 08/30/19 05:50 06:00 WBC 8.5 RBC 3.46 L Hgb 9.5 L Hct 28.6 L MCV 82.5 MCH 27.4 MCHC 33.2 RDW 13.7 Plt Count 217 MPV 7.0 L D Sodium 137 Potassium 3.7 Chloride 101 Carbon Dioxide 31 Anion Gap 5 L BUN 9.9 Creatinine 0.4 L Est GFR (CKD-EPI)AfAm 122.31 Est GFR (CKD-EPI)NonAf 105.53 Random Glucose 93 Calcium 8.3 L Magnesium 2.0 Active Medications Generic Name Dose Route Start Last Admin Trade Name Freq PRN Reason Stop Dose Admin Acetaminophen 650 mg 08/30/19 10:00 08/30/19 10:25 Tylenol - PO Not Given Q6H [facility] Benzocaine/Menthol 1 each 08/28/19 19:10 08/29/19 09:36 Cepacol Lozenge - MM 1 each Q6H PRN Administration SORE THROAT Diazepam 10 mg 08/27/19 18:14 08/30/19 08:35 Valium - PO 08/30/19 18:08 10 mg Q6H PRN Administration PAIN SCALE 6-10 Diphenhydramine HCl 12.5 mg 08/27/19 15:31 Benadryl Injection - IVPUSH ONCE PRN FOR ITCHING Ondansetron HCl 4 mg 08/28/19 19:10 08/28/19 21:46 Zofran Injection IVPUSH 4 mg Q6H PRN Administration NAUSEA AND/OR VOMITING Oxycodone HCl 5 mg 08/30/19 09:57 Roxicodone - PO Q4H PRN PAIN LEVEL 1-5 Oxycodone HCl 10 mg 08/30/19 09:57 Roxicodone - PO Q4H PRN PAIN LEVEL 6-10 Oxycodone HCl 10 mg 08/30/19 10:00 08/30/19 11:26 Oxycontin - PO 10 mg BID FARAZ Administration Phenol/Menthol 1 spray 08/28/19 19:10 08/28/19 20:46 Chloraseptic - MM 1 spray Q2H PRN Administration SORE THROAT Simethicone 80 mg 08/29/19 06:44 08/29/19 13:07 Mylicon - PO 80 mg QID PRN Administration gas pain ASSESSMENT/PLAN: 68 y/o/f with no significant PMHx. She is POD #4 after T-11 to S1 surgery 1. L1, L2, L3, L4, L5, S1 bilateral laminectomies & osteotomies (facetectomies) . 2. TL4-L5, L5-S1 posterior lumbar interbody fusion. 3. T11-S1 posterior instrumentation. 4. T11-S1 posterolateral arthrodesis. 5. Bone allograft. 6. Bone autograft. 7. Bone marrow aspiration. 8. Complex wound closure (60cm). #Ortho - Fluroscopy read pending - 1,750ml blood loss, 625ml cell savers, 3L crystalloids administered during surgery - Analgesia: Dilaudid IV 0.5mg IV Q15, no NSAIDs; received pre-op TLIP block w/ Exparel. POLYMER CHEMIST discontinued. - PT/OT/Rehab, OOB. - No bending, lifting (>5 lbs), or twisting for 9-12 months. - Discharge planning: [facility]; f/u 7-10 days after discharge from [place] at [facility] office; call for appointment; . #Respiratory - Encourage Incentive spirometry #ID - Post-op Ancef x 3 doses given - afebrile, WBC normalized #Renal - Baird care; d/c when ambulating. - Kidney function WNL #FEN - Regular diet - monitor lytes, replete as needed #DVT PPx: - Mechanical only: VLADISLAV's, SCD's. #Dispo - Stable for transfer to med surg Visit type - Emergency Visit Emergency Visit: No - New Patient This patient is new to me today: Yes Date on this admission: 08/30/19 - Critical Care Critical Care patient: Yes Total Critical Care Time (in minutes): 36 Critical Care Statement: The care of this patient involved high complexity decision making to prevent further life threatening deterioration of the patient 's condition and/or to evaluate & treat vital organ system(s) failure or risk of failure. ATTENDING PHYSICIAN STATEMENT I saw and evaluated the patient. I reviewed the resident's note and discussed the case with the resident. I agree with the resident's findings and plan as documented. SUBJECTIVE: OBJECTIVE: ASSESSMENT AND PLAN:
[2019-08-30] MEDS: oxyCODONE HCL 5 MG TABLET PO PRN ×2 (13:38→17:34)
[2019-08-30] MEDS ORDERED: SIMETHICONE 80 MG TAB.CHEW (FP) PO PRN (17:26)
[2019-08-30] MEDS ORDERED: diazePAM 5 MG TABLET PO PRN (17:26)
[2019-08-30] MEDS ORDERED: BENZOCAINE/MENTH/CETYLPYRD CL 1 EACH LOZENGE MM PRN (17:26)
[2019-08-30] MEDS ORDERED: PHENOL 177 ML SPRAY BOTTLE MM PRN (17:26)
[2019-08-30] MEDS: ONDANSETRON 4 MG/2 ML VIAL IVPUSH PRN (18:34)
[2019-08-30] MEDS ORDERED: PT OWN MED DRAWER 7, Y5N ONE (19:08)
[2019-08-31] MEDS: oxyCODONE HCL 5 MG TABLET PO PRN ×2 (01:57→14:30)
[2019-08-31] MEDS: ONDANSETRON 4 MG/2 ML VIAL IVPUSH PRN (01:58)
[2019-08-31] MEDS: ACETAMINOPHEN 325 MG TABLET (FP) PO SCH ×4 (07:03→16:00)
[2019-08-31 08:04] LABS: HEMATOCRIT 29.6 % (32.4-45.2); HEMOGLOBIN 9.9 GM/dL (10.7-15.3); MCH 27.5 pg (25.7-33.7); MCHC 33.6 g/dl (32.0-36.0); MEAN CELL VOLUME 81.8 fl (80-96); MEAN PLT VOLUME 7.1 fl (7.5-11.1); PLATELET COUNT 296 K/MM3 (134-434); RBC 3.62 M/mm3 (3.60-5.2); RDW 13.7 % (11.6-15.6); WHITE BLOOD COUNT 9.1 K/mm3 (4.0-10.0)
[2019-08-31 08:16] LABS: BLOOD UREA NITROGEN 10.6 mg/dL (7-18); CALCIUM 8.1 mg/dL (8.5-10.1); CREATININE 0.4 mg/dL (0.55-1.3); POTASSIUM 3.5 mmol/L (3.5-5.1)
[2019-08-31] MEDS: oxyCODONE HCL 10 MG SUSTAINED ACTING TABLET PO SCH (11:12)
--- NOTE | 2019-08-31 11:48 | PN ---
Progress Note (short form) - Note Progress Note: she still have pain at the back site and she is on round the clock pain meds no distress had pt and she walked few steps vs Vital Signs Period Temp Pulse Resp BP Sys/No Pulse Ox Last 24 Hr 98 F-100.2 F 83-92 17-21 110-161/64-95 GENERAL: Awake, alert, and fully oriented, in no acute distress. HEENT: NC/AT, JOSE< sclera anicteric, LUNGS: CTA bilaterally. No wheezes, and no crackles. No accessory muscle use. HEART: RRR, normal S1 and S2 without murmur ABDOMEN: Soft, NT/ND, normoactive bowel sounds, no guarding. EXTREMITIES: 2+ pulses, No calf tenderness. No peripheral edema. 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 Strength of UExt b/l 5/5. 4+/5 with hip flexion. (movement limited by pain). Sensation intact SKIN: Warm, dry, normal turgor, no rashes or lesions noted CBC, BMP 08/31/19 06:10 08/31/19 06:10 ASSESSMENT/PLAN: POD #3of L1-S1 bilateral laminectomies; bilateral L1-S1 facetectomies L3-L4, L4-L5, L5-S1 PLIF w/T11-S1 posterior instrumented spinal fusion --Continued physical therapy --Will benefit from STR; CM aware --Valium for spasms --Avoid NSAIDs --Tylenol to augment pain as needed --Oxycontin 10mg BID PO --Continue Oxycodone 5mg/10mg based on pain scale
--- NOTE | 2019-08-31 12:05 | PN ---
Progress Note (short form) - Note Progress Note: Anesthesia CERTIFIED OPHTHALMIC SURGICAL ASSISTANT rouns POD#5 S/P multiple level (Th11-S1) laminectomy/fusion. CERTIFIED OPHTHALMIC SURGICAL ASSISTANT D/C'd yesterday . On Po meds as er primary team. Signed off.
[2019-08-31] MEDS ORDERED: BISMUTH SUBSALICYLATE 524 MG/30 ML UD PO PRN (14:35)
--- NOTE | 2019-08-31 14:49 | DS ---
Physical Exam: SUBJECTIVE: Patient seen and examined she was admitted for spinal surgery due to spinal disease 68yo F with only history of low back pain with neuropathy who came in to this facility for undergoing complex lumbar correction and spinal decompression with Dr. Villa. Pt underwent pre-operative clearance with her PCP (records in chart) and was optimized for her surgery. EBL perioperatively is 1750cc with 650cc Cell saver and 3L IVF during procedure. Pt had no events with post-operative recovery and was monitored overnight in the ICU. Pt reports last night she was in excessive pain with minimal relief from Tylenol and slight relief with Dilaudid 0.5mg IVP. Pt also complains of odynophagia, however denies hoarseness of voice and dysphagia all-together. Pt today reports pain is 6/10 while resting in bed and she has been using her incentive spirometry. Pt denies any numbness/tingling of her distal extremities, weakness of her feet, SOB, CP, palpitations, abdominal pain. OBJECTIVE: Vital Signs Period Temp Pulse Resp BP Sys/No Pulse Ox Last 24 Hr 98 F-100.2 F 83-92 19-21 110-161/68-80 96 PHYSICAL EXAM GENERAL: On NC. AOx3 HEAD: Normal with no signs of trauma. EYES: ANTONINO, EOMI EARS, NOSE, THROAT: Dry mucus membranes LUNGS: Decreased breath sounds B/L, clear B/L HEART: RRR, no murmurs ABDOMEN: Soft, nontender, not distended LOWER EXTREMITIES: 2+ pulses, warm, well-perfused NEUROLOGICAL: Unable to fully assess motor function due to back pain when she moves legs, sensations intact B/L SKIN: Warm, dry, normal turgor, no rashes or lesions noted. LABS Laboratory Results - last 24 hr 08/31/19 08/31/19 06:10 06:10 WBC 9.1 RBC 3.62 Hgb 9.9 L Hct 29.6 L MCV 81.8 MCH 27.5 MCHC 33.6 RDW 13.7 Plt Count 296 D MPV 7.1 L Sodium 139 Potassium 3.5 Chloride 100 Carbon Dioxide 32 Anion Gap 7 L BUN 10.6 Creatinine 0.4 L Est GFR (CKD-EPI)AfAm 122.31 Est GFR (CKD-EPI)NonAf 105.53 Random Glucose 94 Calcium 8.1 L HOSPITAL COURSE: 68 YO F with no significant PMH. She had T-11 to S1 surgery 1. L1, L2, L3, L4, L5, S1 bilateral laminectomies & osteotomies (facetectomies) . 2. TL4-L5, L5-S1 posterior lumbar interbody fusion. 3. T11-S1 posterior instrumentation. 4. T11-S1 posterolateral arthrodesis. 5. Bone allograft. 6. Bone autograft. 7. Bone marrow aspiration. 8. Complex wound closure (60cm) she is going for rehab at [facility] Current Medications Acetaminophen (Tylenol -) 650 mg PO Q6H [facility] Last Admin: 08/31/19 10:02 Dose: Not Given Benzocaine/Menthol (Cepacol Lozenge -) 1 each MM Q6H PRN PRN Reason: SORE THROAT Bismuth Subsalicylate (Pepto-Bismol -) 524 mg PO BID PRN PRN Reason: UPSET STOMACH Diphenhydramine HCl (Benadryl Injection -) 12.5 mg IVPUSH ONCE PRN PRN Reason: FOR ITCHING Ondansetron HCl (Zofran Injection) 4 mg IVPUSH Q6H PRN PRN Reason: NAUSEA AND/OR VOMITING Last Admin: 08/31/19 01:58 Dose: 4 mg Oxycodone HCl (Roxicodone -) 5 mg PO Q4H PRN PRN Reason: PAIN LEVEL 1-5 Last Admin: 08/31/19 08:35 Dose: 5 mg Oxycodone HCl (Roxicodone -) 10 mg PO Q4H PRN PRN Reason: PAIN LEVEL 6-10 Last Admin: 08/31/19 14:30 Dose: 10 mg Oxycodone HCl (Oxycontin -) 10 mg PO BID [facility] Last Admin: 08/31/19 11:12 Dose: 10 mg Phenol/Menthol (Chloraseptic -) 1 spray MM Q2H PRN PRN Reason: SORE THROAT Simethicone (Mylicon -) 80 mg PO QID PRN PRN Reason: gas pain Date of Admission:08/26/19 Date of Discharge: 08/31/19 Minutes to complete discharge: 30 Discharge Summary Problems reviewed: Yes Reason For Visit: INTERVERTEBRAL DISC DISORDERS W RADICULOPATHY,L Current Active Problems Hx of decompressive lumbar laminectomy (Acute) Condition: Fair - Instructions Referrals: Clinton Baires MD [Staff Physician] - 1 Month (PRIMITIVO eval) Elder Villa MD [Staff Physician] - Disposition: [facility] - Home Medications Comprehensive Discharge Medication List: Ambulatory Orders Oxycodone HCl/Acetaminophen [Oxycodone-Acetaminophen 10-325] 1 each PO PRN 08/23 This patient is new to me today: Yes Date on this admission: 08/31/19 Emergency Visit: Yes ED Registration Date: 08/26/19 Care time: The patient presented to the Emergency Department on the above date and was hospitalized for further evaluation of their emergent condition. Critical Care patient: No - Discharge Referral Referred to [facility] Med P.C.: No
[2019-08-31 16:02] VITALS: BP 148/66; PULSE 82; TEMP 98.5
== END 2019-08-31 16:41 | DRG 454 ==
LOC: JSAMEDAYSX 10:08 → EDSTATUS 12:00 → JICU 08-27 00:31 → J8W 08-30 17:05
PROVIDERS: ADMIT Orthopaedic Surgery Adult Reconstructive Orthopaedic Surgery; ATTEND Internal Medicine
PROC: 0SG30AJ Fusion of Lumbosacral Joint with Interbody Fusion Device, Posterior Approach, Anterior Column, Open Approach (ICD-10-PCS; 2019-08-26)
PROC: 0SG3071 Fusion of Lumbosacral Joint with Autologous Tissue Substitute, Posterior Approach, Posterior Column, Open Approach (ICD-10-PCS; 2019-08-26)
PROC: 0RGA07J Fusion of Thoracolumbar Vertebral Joint with Autologous Tissue Substitute, Posterior Approach, Anterior Column, Open Approach (ICD-10-PCS; 2019-08-26)
PROC: 0QB00ZZ Excision of Lumbar Vertebra, Open Approach (ICD-10-PCS; 2019-08-26)
PROC: 07DR0ZX Extraction of Iliac Bone Marrow, Open Approach, Diagnostic (ICD-10-PCS; 2019-08-26)
PROC: B01BZZZ Fluoroscopy of Spinal Cord (ICD-10-PCS; 2019-08-26)
PROC: 0QB00ZZ Excision of Lumbar Vertebra, Open Approach (ICD-10-PCS; principal; 2019-08-26 12:00)
DX: M41.9 Scoliosis, unspecified (principal); D62 Acute posthemorrhagic anemia; M48.05 Spinal stenosis, thoracolumbar region; I73.9 Peripheral vascular disease, unspecified; R13.10 Dysphagia, unspecified; R10.9 Unspecified abdominal pain; M47.27 Other spondylosis with radiculopathy, lumbosacral region
CPT/HCPCS: 36415; 76000-TC-FY; 80048; 83735; 84100; 85027; 86850; 86891; 86900; 86901; 88304-TC; 94760; 97116-GP; 97163-GP; J0131; J1644

== ENCOUNTER 2019-09-09 11:33 | Inpatient (IN) | payer OTHER ==
[2019-09-09] MEDS ORDERED: SODIUM CHLORIDE 1,000 ML IV SCH (12:00)
[2019-09-09] MEDS ORDERED: ACETAMINOPHEN 1000 MG/100 ML VIAL (NON FORMULARY) IVPB ONE (12:26)
[2019-09-09] MEDS ORDERED: ACETAMINOPHEN INJECTION 100 ML IVPB ONE (12:30)
--- NOTE | 2019-09-09 12:48 | PDOC ---
Documentation entered by Humble Beltran SCRIBE, acting as scribe for Guanakito Cardona MD. Guanakito Cardona MD: This documentation has been prepared by the Ruby trinidad Nirvannie, SCRIBE, under my direction and personally reviewed by me in its entirety. I confirm that the documentation accurately reflects all work, treatment, procedures, and medical decision making performed by me. History of Present Illness - General Chief Complaint: Wound Stated Complaint: Wound Time Seen by Provider: 09/09/19 11:49 History Source: Patient, Family (Son.) Exam Limitations: No Limitations - History of Present Illness Initial Comments: 09/09/19 12:41 The patient is a 68 year old female, with a significant past medical history of recent admission for complex lumbar correction and spinal decompression (08/26- 08/31 then transfer to [facility]), who presents to the emergency department via EMS from [facility] with pain and 3 days purulent discharge from a surgical wound with associated fevers. Son notes that over the course of the past 3 days she has been experiencing purulent discharge from her surgical incision site which had initially started sher blood to the site. As per patient and son at bedside, she had a complex lumbar correction and spinal decompression at [facility] by Dr. Villa performed on 08/26 and discharged from the hospital 08/31 to [facility]. Patient notes since her operation she has been experiencing persistent fevers (Tmax 101.5F) which has been improved mildly with IV Tylenol. While at [facility] patient was transferred to [facility] for a CT chest and abdomen which depicted mild ileus and pneumonia of unknown location. She notes she has since been treated with unknown IV and oral antibiotics along with enemas secondary to constipation, with relief. Today she notes associated nausea with emesis and GERD-like symptoms. Patient was given IV Tylenol approximately 2 hours prior to her arrival and her pain is normally treated with IV Tylenol and Oxycodone. She has been receiving physical therapy for approximately a week. She denies any decreased strength/sensation or inability to move her lower extremities. She denies any urinary or bowel incontinence. She denies recent chest pain or shortness of breath. Allergies: NKDA Past surgical history: L1-S1 bilateral laminectomies; bilateral L1-S1 facetectomies; L3-L4, L4-L5, L5-S1 PLIF w/T11-S1 posterior instrumented spinal fusion Social history: Nonsmoker. Denies EtOH use and recreational drug use. Primary Care Physician: Dr. Orr Orthopedic Surgeon: Dr. Villa Past History - Past Medical History Allergies/Adverse Reactions: Allergies Allergy/AdvReac Type Severity Reaction Status Date / Time No Known Allergies Allergy Verified 08/26/19 11:14 Home Medications: Ambulatory Orders Acetaminophen Injection [Ofirmev -] 1,000 mg IVPB Q6H PRN 09/09/19 Amox-Tr/K Cl [Augmentin - 875Mg Tablet] 1 tab PO BID 09/09/19 Baclofen 10 mg PO BID 09/09/19 Benzocaine/Menthol [Cepacol Sore Throat Lozenge] 1 each MM QID 09/09/19 Bisacodyl [Dulcolax] 10 mg RC DAILY PRN 09/09/19 Ceftriaxone [Rocephin 2Gm Ivpb (Pre-Docked)] 2 gm IVPB DAILY 09/09/19 Docusate Sodium [Colace] 100 mg PO DAILY 09/09/19 Emollient Combination No.55 [Triple Cream] 227 gm TP DAILY 09/09/19 HYDROmorphone [Dilaudid -] 2 mg PO Q4H PRN 09/09/19 HYDROmorphone [Dilaudid -] 4 mg PO Q4H PRN 09/09/19 Lactobacillus Acidophilus [Bacid -] 2 each PO BID 09/09/19 Lidocaine 5% Top. Ointment [Xylocaine 5% Top. Ointment] 1 applic TP DAILY Mag Hydrox/Al Hydrox/Simeth [Mylanta Oral Suspension -] 30 ml PO Q8H 09/09/19 Melatonin/Pyridoxine HCl (B6) [Melatonin 3 mg Tablet] 2 each PO HS 09/09/19 Ondansetron HCl [Zofran] 4 mg PO Q8H 09/09/19 Pantoprazole Sodium [Protonix] 40 mg PO DAILY 09/09/19 Phenol [Chloraseptic] 177 ml MM Q3H5XD 09/09/19 Polyethylene Glycol 3350 [Miralax (For Daily Use) -] 17 gm PO DAILY 09/09/19 Sennosides [Senna] 2 tab PO HS 09/09/19 Sodium Phosphate,Mcclain-Dibasic [Fleet Enema] 133 ml RC DAILY 09/09/19 Sulfamethoxazole/Trimethoprim [Bactrim Ds -] 1 tab PO BID 09/09/19 COPD: No - Surgical History Neurologic Surgery: Yes (LAMINECTOMY) - Psycho Social/Smoking Cessation Hx Smoking History: Unknown if ever smoked Information on smoking cessation initiated: No Hx Alcohol Use: No Drug/Substance Use Hx: No Substance Use Type: None Review of Systems - Review of Systems Constitutional: Yes: Chills, Fever Respiratory: No: Cough, Shortness of Breath Cardiac (ROS): No: Chest Pain ABD/GI: Yes: See HPI, Constipated, Nausea, Vomiting : No: Dysuria Musculoskeletal: Yes: See HPI Integumentary: Yes: See HPI Neurological: No: Headache, Weakness All Other Systems: Reviewed and Negative *Physical Exam - Vital Signs Last Vital Signs Temp Pulse Resp BP Pulse Ox 98.2 F 78 16 174/70 H 100 09/09/19 11:35 09/09/19 11:35 09/09/19 11:35 09/09/19 11:35 09/09/19 11:35 - Physical Exam Comments: 09/09/19 12:44 GENERAL: The patient is awake, alert, and fully oriented, in no acute distress. HEAD: Normal with no signs of trauma. EYES: Pupils equal, round and reactive to light, extraocular movements intact, sclera anicteric, conjunctiva clear with no pallor. ENT: Ears normal, nares patent, oropharynx clear without exudates. Moist mucous membranes. NECK: Normal range of motion, supple without lymphadenopathy, JVD, or masses. LUNGS: Breath sounds equal, clear to auscultation bilaterally. No wheeze/ crackles. HEART: Regular rate and rhythm, normal S1 and S2 without murmur or rub. ABDOMEN: +Distended. Soft/nontender. BS wnl. No guarding or rebound. No palpable masses. No hepatosplenomegaly. +BACK: Healing wound with 1.5cm area of dehiscence with purulent and sanguineous discharge over T11. EXTREMITIES: Normal range of motion, no edema. No clubbing or cyanosis. No cords, erythema, or tenderness. NEUROLOGICAL: Cranial nerves II through XII grossly intact. Normal speech. PSYCH: Normal mood, normal affect. SKIN: Warm, Dry, normal turgor, no rashes or lesions noted. Heart Score/ECG Review #1 ECG reviewed & interpreted by me at: 01:56 General ECG Interpretation: Sinus Rhythm, Normal Rate (91), Normal Intervals ( qtc 425), No acute ischemic changes (IRBBB,) ED Treatment Course - LABORATORY CBC & Chemistry Diagram: 09/09/19 12:26 09/09/19 12:26 - Medications Given in the ED: ED Medications Discontinued Medications Generic Name Dose Route Start Last Admin Trade Name Barney PRN Reason Stop Dose Admin Acetaminophen 1,000 mg 09/09/19 12:26 09/09/19 12:39 Ofirmev Injection - IVPB 09/09/19 12:27 1,000 mg ONCE ONE Administration Medical Decision Making - Medical Decision Making 09/09/19 12:45 A portion of this note was documented by scribe services under my direction. I have reviewed the details of the note, within reason, and agree with the documentation with the following case summary and management plan written by me. 68-year-old female with no significant past medical history but recent postop T11-S1 spinal surgery on 08/29, discharged to [facility] reportedly complicated by postoperative ileus requiring enemas and diagnosis of pneumonia and outside hospital ED started antibiotics, now with increasing back pain and discharge, sent for follow up with Dr. Ronquillo. +f/c, no neuro complaints. Exam as noted with small area of dehiscence in the surgical incision with purulent and sanguinous drainage. Positive surrounding erythema. Ranging both lower extremities symmetrically. 68-year-old female with infected spine surgery site, reportedly on IV antibiotics for pneumonia, here for operative intervention. Dr. Ronquillo aware Preop labs sent Tylenol for pain Admission 09/09/19 13:[address] Reilly, accepted for admission by Dr. Goodwin. Med/Surg admit entered, dispo pending OR findings. Discharge - Discharge Information Problems reviewed: Yes Clinical Impression/Diagnosis: Wound infection after surgery Condition: Stable - Admission Yes - Follow up/Referral Referrals: Radha Cruz [Primary Care Provider] - - Patient Discharge Instructions - Post Discharge Activity
--- NOTE | 2019-09-09 12:53 | PN ---
Progress Note (short form) - Note Progress Note: 68F s/p L1-S1 posterior decompression & T11-S1 instrumented fusion (08/26/2019) now p/w wound infection. -H&P reviewed. -Pt. seen & examined in pre-op holding area. -Risks, benefits, and alternatives of non-surgical VS surgical management discussed with & understood by patient. -Patient consented for I&D posterior thoracolumbar spine; possible application of wound vac; witnessed. -Pt. admitted to medical hospitalist service. Eliezer Villa MD (Orthopaedic Surgery).
[2019-09-09 12:55] LABS: BASO % 0.7 % (0-2.0); EOS % 0.7 % (0-4.5); HEMATOCRIT 31.8 % (32.4-45.2); HEMOGLOBIN 10.6 GM/dL (10.7-15.3); LYMPH % 13.3 % (8-40); MCH 26.9 pg (25.7-33.7); MCHC 33.3 g/dl (32.0-36.0); MEAN CELL VOLUME 80.7 fl (80-96); MEAN PLT VOLUME 6.3 fl (7.5-11.1); MONO % 13.2 % (3.8-10.2); NEUT % 72.1 % (42.8-82.8); PLATELET COUNT 701 K/MM3 (134-434); RBC 3.93 M/mm3 (3.60-5.2); RDW 14.2 % (11.6-15.6); WHITE BLOOD COUNT 7.4 K/mm3 (4.0-10.0)
[2019-09-09 13:20] LABS: INR 1.46 (0.83-1.09); PROTHROMBIN TIME (PATIENT) 17.3 SEC (9.7-13.0)
[2019-09-09 13:23] LABS: ACTIVATED PTT 32.9 SECONDS (25.2-36.5)
[2019-09-09 13:28] LABS: ALBUMIN 2.5 g/dl (3.4-5.0); BILIRUBIN,TOTAL 0.4 mg/dL (0.2-1); BLOOD UREA NITROGEN 9.1 mg/dL (7-18); CALCIUM 9.2 mg/dL (8.5-10.1); CREATININE 0.5 mg/dL (0.55-1.3); POTASSIUM 3.5 mmol/L (3.5-5.1); TOT PROT 6.5 g/dl (6.4-8.2)
[2019-09-09] MEDS ORDERED: MIDAZOLAM HCL 2 MG/2 ML SINGLE DOSE VIAL ONE (14:10)
[2019-09-09] MEDS ORDERED: PROPOFOL 20 ML ONE (14:10)
--- NOTE | 2019-09-09 14:23 | HP ---
<Soha Reilly - Last Filed: 09/09/19 18:33> Hospitalist Medicine Admission 68 y/o F with no significant PMH who presents s/p L1-S1 posterior decompression & T11-S1 instrumented fusion (08/26/2019) now p/w wound infection. Per patient and family at bedside, pt was d/c from [facility] on 08/29. Thereafter, went to [facility]. While there, her course was complicated by ileus tx with enemas, and she was also tx at [facility] for persistent fevers, PNA, and UTI with abx. States that most recently, this past Monday, pt endorsed increased back pain and "oozing from her back wounds" which was serosanguineous. Contacted Dr. Villa, and was brought in for wound infection, I&D of the area. Denies VENTURA, fever , chills, SOB, chest pain or pressure or changes in urinary or bowel function. 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 HOME MEDICATIONS: Home Medications Medication Instructions Recorded Baclofen 10 mg PO BID 09/09/19 Bisacodyl [Dulcolax] 10 mg RC DAILY PRN 09/09/19 Docusate Sodium [Colace] 100 mg PO DAILY 09/09/19 Mag Hydrox/Al Hydrox/Simeth 30 ml PO Q8H 09/09/19 [Mylanta Oral Suspension -] Pantoprazole Sodium [Protonix] 40 mg PO DAILY 09/09/19 Polyethylene Glycol 3350 [Miralax 17 gm PO DAILY 09/09/19 (For Daily Use) -] Sennosides [Senna] 2 tab PO HS 09/09/19 PHYSICAL EXAMINATION Vital Signs - 24 hr 09/09/19 09/09/19 11:35 13:54 Temperature 98.2 F 98.9 F Pulse Rate 78 Pulse Rate [ 76 Right Radial] Respiratory 16 19 Rate Blood Pressure 174/70 H Blood Pressure 168/68 [Right Arm] O2 Sat by Pulse 100 100 Oximetry (%) General: resting in bed, in mild distress HEENT: NCAT, PERRLA neck: supple cardio: S1, S2 RRR. no r/m/g pulm: CTA b/l. no accessory m usage abdomen: obese, nontender, nondistended LE: 2+ pulses. no edema MSK: able to move UE, LE however with increased pain on ROM. would not comply with strength testing neuro: surgical technology instructor 2-12 grossly intact Laboratory Results - last 24 hr 09/09/19 09/09/19 09/09/19 12:26 12:26 12:26 WBC 7.4 RBC 3.93 Hgb 10.6 L Hct 31.8 L MCV 80.7 MCH 26.9 MCHC 33.3 RDW 14.2 Plt Count 701 H D MPV 6.3 L D Absolute Neuts (auto) 5.3 Neutrophils % 72.1 Lymphocytes % 13.3 Monocytes % 13.2 H Eosinophils % 0.7 Basophils % 0.7 Nucleated RBC % 0 PT with INR 17.30 H INR 1.46 H PTT (Actin FS) 32.9 Sodium 136 Potassium 3.5 Chloride 99 Carbon Dioxide 27 Anion Gap 10 BUN 9.1 Creatinine 0.5 L Est GFR (CKD-EPI)AfAm 113.65 Est GFR (CKD-EPI)NonAf 98.06 Random Glucose 83 Calcium 9.2 Total Bilirubin 0.4 AST 52 H ALT 54 Alkaline Phosphatase 168 H C-Reactive Protein 13.9 H Total Protein 6.5 Albumin 2.5 L Blood Type Antibody Screen ASSESSMENT/PLAN: 68 y/o F with no significant PMH who presents s/p L1-S1 posterior decompression & T11-S1 instrumented fusion (08/26/2019) now p/w wound infection. #s/p L1-S1 posterior decompression & T11-S1 instrumented fusion (08/26/2019) -s/p I&D: PO Day 0 -NPO until flatus -intra-op: fluconazole x1 -team started pt on vanc, zosyn -f/u intraop wound cx, ucx -PT/OT/Rehab, OOB. -WBAT B/L LE. -incentive spirometer -pain control: OUTSIDE MACHINIST pump -ESR, CRP -ID: Dr. Tesfaye #F/E/N IV LR 125 cc/hr continue to follow lytes NPO until flatus #PPX mechanical only- SCD/TEDs #Dispo monitoring on med-surg post-op tapia until ambulating then d/c No heavy lifting (>5 lbs), bending or twisting x 6 months post op. Discharge planning: plan to repeat I&D with application of wound vac 48 hrs. ( 09/11; NPO w/IVF tomorrow at midnight). Visit type - Emergency Visit Emergency Visit: No - New Patient This patient is new to me today: Yes Date on this admission: 09/09/19 - Critical Care Critical Care patient: No <Christopher Goodwin - Last Filed: 09/10/19 01:32> Seen and examined; agree with above aside from as supplemented below by myself. Personally verified all historical information and yang PE findings. Independently reviewed all labs and diagnostics. I discussed the case at length with the resident and consulting services. All questions answered. Seen preop. 50 minutes spent on this admission. Agree with HPI; worsening pain but improved with PRN meds-deferring to surgical services for postop analgesia but discussed with resident can do PRN dilaudid if absolutely necessicary prior to procedure if d/w ansesthesia. No neurovascular deficits. Will go to ICU postoperatively with neuro checks and close monitoring. Denies significant PMH; former smoker but no current s/s COPD eexacerbtion. Pain is sharp and worse with movement and radiates throughout the back. She hasn't seen anyone else for the pain. ESR/CRP pending. Appreciate co-management from surgical services. Obtaining type and cross/coags, etc. Benefits of operation in the setting of acute infection are minimal compared to untreated. At risk for nosocomial organisms so will consult ID and place on broad spectrum but try to obtain a culture first. RCRI and Enriquez negligable. 10 sys ROS done and negative aside from HPI Allergies No Known Allergies Allergy (Verified 08/26/19 11:14) HOME MEDICATIONS: Home Medications Medication Instructions Recorded Baclofen 10 mg PO BID 09/09/19 Bisacodyl [Dulcolax] 10 mg RC DAILY PRN 09/09/19 Docusate Sodium [Colace] 100 mg PO DAILY 09/09/19 Mag Hydrox/Al Hydrox/Simeth 30 ml PO Q8H 09/09/19 [Mylanta Oral Suspension -] Pantoprazole Sodium [Protonix] 40 mg PO DAILY 09/09/19 Polyethylene Glycol 3350 [Miralax 17 gm PO DAILY 09/09/19 (For Daily Use) -] Sennosides [Senna] 2 tab PO HS 09/09/19 PHYSICAL EXAMINATION Vital Signs - 24 hr 09/09/19 09/09/19 11:35 13:54 Temperature 98.2 F 98.9 F Pulse Rate 78 Pulse Rate [ 76 Right Radial] Respiratory 16 19 Rate Blood Pressure 174/70 H Blood Pressure 168/68 [Right Arm] O2 Sat by Pulse 100 100 Oximetry (%) GENERAL: Awake, alert, and fully oriented, in mild distress 2/2 acute pain. Non -toxic appearing. HEAD: Normal with no signs of trauma. EYES: Pupils equal, round and reactive to light, extraocular movements intact EARS, NOSE, THROAT: Ears normal, nares patent, oropharynx clear without exudates. Moist mucous membranes. NECK: Normal range of motion, supple without lymphadenopathy, JVD, or masses. LUNGS: Breath sounds equal, clear to auscultation bilaterally. No wheezes HEART: Regular rate and rhythm, normal S1 and S2 without murmur, rub or gallop. ABDOMEN: Soft, nontender, not distended, normoactive bowel sounds MUSCULOSKELETAL: Normal range of motion at all joints. No bony deformities or tenderness. No CVA tenderness. NEUROLOGICAL: Cranial nerves II-XII intact. Normal speech. Gait not checked 2/ 2 clinical scenario. Strength intact all extremities. ROM at T/L spine and C- spine somewhat limited due to pain. PSYCHIATRIC: Cooperative. Good eye contact. Appropriate mood and affect. SKIN: Warm, dry, normal turgor, no rashes or lesions noted, normal capillary refill. Laboratory Results - last 24 hr 09/09/19 09/09/19 09/09/19 12:26 12:26 12:26 WBC 7.4 RBC 3.93 Hgb 10.6 L Hct 31.8 L MCV 80.7 MCH 26.9 MCHC 33.3 RDW 14.2 Plt Count 701 H D MPV 6.3 L D Absolute Neuts (auto) 5.3 Neutrophils % 72.1 Lymphocytes % 13.3 Monocytes % 13.2 H Eosinophils % 0.7 Basophils % 0.7 Nucleated RBC % 0 ESR 90 H PT with INR INR PTT (Actin FS) Sodium 136 Potassium 3.5 Chloride 99 Carbon Dioxide 27 Anion Gap 10 BUN 9.1 Creatinine 0.5 L Est GFR (CKD-EPI)AfAm 113.65 Est GFR (CKD-EPI)NonAf 98.06 Random Glucose 83 Calcium 9.2 Total Bilirubin 0.4 AST 52 H ALT 54 Alkaline Phosphatase 168 H C-Reactive Protein 13.9 H Total Protein 6.5 Albumin 2.5 L Blood Type Antibody Screen 09/09/19 09/09/19 12:26 12:26 WBC RBC Hgb Hct MCV MCH MCHC RDW Plt Count MPV Absolute Neuts (auto) Neutrophils % Lymphocytes % Monocytes % Eosinophils % Basophils % Nucleated RBC % ESR PT with INR 17.30 H INR 1.46 H PTT (Actin FS) 32.9 Sodium Potassium Chloride Carbon Dioxide Anion Gap BUN Creatinine Est GFR (CKD-EPI)AfAm Est GFR (CKD-EPI)NonAf Random Glucose Calcium Total Bilirubin AST ALT Alkaline Phosphatase C-Reactive Protein Total Protein Albumin Blood Type A POSITIVE Antibody Screen Negative Prior imaging reviewed Labs pending Micro pending; prior micro reviewed Deferring further imaging to surgical specialties. ASSESSMENT/PLAN: Patient presents with postoperative wound infection s/p L1-S1 posterior decompression & T11-S1 instrumented fusion (08/26/2019). They are going to the OR and micro is pending. Abx ordered and will discuss with ID. Trend ESR/CRP and monitor WBC and clinical signs for sepsis or worsening/improvement. NPO, IVF, stereotyped pre-op labs. Will need rehab. Postoperative ICU care per PCCM consultation. No other complaints. Deferring pain management to surgical services but given complexity of the case it may be indicated to get PM consult if continued discomfort. Full Code DVT px to be d/w sgy GI px if continued NPO Dispo pending final abx course and postoperative healing. ATTENDING PHYSICIAN STATEMENT I saw and evaluated the patient. I reviewed the resident's note and discussed the case with the resident. I agree with the resident's findings and plan as documented. SUBJECTIVE: OBJECTIVE: ASSESSMENT AND PLAN:
--- NOTE | 2019-09-09 14:55 | PN ---
Progress Note (short form) - Note Progress Note: 68F s/p L1-S1 posterior decompression & T11-S1 instrumented fusion (08/26/2019) now s/p I&D posterior thoracolumbar spine POD #0. -Pain medication: per anaesthesia team; HAMMER REPAIRER if needed; NO NSAID's. -Maintain woundvac @ 125mmHg negative pressure therapy. -f/u OR wound cultures x 3 (aerobic, anaerobic, AFB, fungal). -Ancef 2g IV q6h standing until OR culture speciation returns. -1 x Diflucan post-op. -f/u UA/UCx. -Maintain tapia catheter until patient comfortably ambulating. -DVT PPx: -Mechanical only: VLADISLAV's, SCD's. -f/u AM labs: CBC, BMP. -Incentive spirometry. -PT/OT/Rehab, OOB. -WBAT B/L LE. -Advance diet as tolerated. -No heavy lifting (>5 lbs), bending or twisting x 6 months post op. -B/L UE & LE NV checks. -Care per primary medical hospitalist team. -Discharge planning: plan to repeat I&D with application of wound vac 48 hrs. ( 09/11; NPO w/IVF tomorrow at midnight). -Will follow. Eliezer Villa MD (Orthopaedic Surgery).
--- NOTE | 2019-09-09 14:55 | OP ---
Operative Note - Note: Operative Date: 09/09/19 Pre-Operative Diagnosis: Thoracolumbar spine wound infection. Operation: 1. I&D thoracolumbar spine. 2. Inspection of fusion mass Findings: 400cc deep wound abscess; purulent, foul smelling. Post-Operative Diagnosis: Same as Pre-op Surgeon: Eliezer Villa Anesthesiologist/OCEAN LIFEGUARD SPECIALIST: Nanci Perez Anesthesia: General Specimens Removed: 3 x wound culture sticks Estimated Blood Loss (mls): 0 Fluid Volume Replaced (mls): 800 (Crystalloid) Operative Report Dictated: Yes
[2019-09-09] MEDS ORDERED: VANCOMYCIN 1 GM in D5W (PRE-DOCKED) 1,000 MG/250 ML IVPB SCH (15:15)
[2019-09-09] MEDS ORDERED: PIPERACILLIN/TAZOB 3.375 GM 3.375 GM in DEXTROSE 5%-WATER - 50 ML IVPB SCH ×2 (15:15→18:00)
[2019-09-09] MEDS ORDERED: ceFAZolin SODIUM 1 GM VIAL ONE (15:19)
[2019-09-09] MEDS ORDERED: VANCOMYCIN 1,000 MG VIAL (RESTRICTED TO ID ONLY) ONE (15:19)
[2019-09-09] MEDS ORDERED: DEXAMETHASONE SOD PHOSPHATE 4 MG/1 ML VIAL ONE (15:19)
[2019-09-09] MEDS ORDERED: SODIUM CHLORIDE 0.9% P/F 10 ML VIAL IJ ONE (15:19)
[2019-09-09] MEDS ORDERED: HYDROmorphone HCl 2 MG/ML VIAL ONE (15:30)
[2019-09-09] MEDS ORDERED: ceFAZolin SODIUM 1 GM VIAL IVPB ONE (15:50)
[2019-09-09] MEDS ORDERED: VANCOMYCIN 1,000 MG VIAL (RESTRICTED TO ID ONLY) IVPB ONE (15:50)
[2019-09-09] MEDS ORDERED: ONDANSETRON 4 MG/2 ML VIAL IVPUSH PRN (16:45)
[2019-09-09] MEDS ORDERED: diazePAM CARPU-JECT 10 MG/2 ML DISP.SYRIN IVPUSH ONE (16:45)
[2019-09-09] MEDS ORDERED: LACTATED RINGERS SOLUTION 1,000 ML IV SCH (17:15)
[2019-09-09 17:31] LABS: URINE APPEARANCE CLOUDY; URINE BILIRUBIN NEGATIVE (NEGATIVE); URINE COLOR YELLOW; URINE GLUCOSE (UA) NEGATIVE (NEGATIVE); URINE KETONE 1+ (NEGATIVE); URINE LEUK ESTERASE NEGATIVE (NEGATIVE); URINE NITRITE NEGATIVE (NEGATIVE); URINE PROTEIN TRACE (NEGATIVE); URINE UROBILINOGEN 0.2 mg/dL (0.2-1.0)
[2019-09-09] MEDS: HYDROmorphone *PCA* 10MG/50ML DISP.SYRIN PCA SCH (18:30)
[2019-09-09] MEDS ORDERED: FLUCONAZOLE 200 MG PREMIX BAG (IN DEXTROSE) IVPB ONE (19:00)
[2019-09-09] MEDS ORDERED: FLUCONAZOLE 200 MG/NS 100 ML IVPB ONE (19:30)
[2019-09-09] MEDS ORDERED: PIPERACILLIN/TAZOBACTAM 3.375 GM VIAL IVPB ONE (21:00)
[2019-09-09] MEDS ORDERED: PIPERACILLIN/TAZOB 4.5 GM 4.5 GM in DEXTROSE 5%-WATER 100 ML IVPB SCH (21:00)
[2019-09-09] MEDS ORDERED: ceFAZolin 2 GRAM PREMIX BAG IVPB SCH (22:00)
[2019-09-09] MEDS ORDERED: BENZOCAINE/MENTH/CETYLPYRD CL 1 EACH LOZENGE MM ONE (22:28)
--- NOTE | 2019-09-10 01:00 | CONSULT ---
Consultation: REQUESTING PROVIDER: CONSULT REQUEST: We have been asked to medically evaluate this patient for ICU admission post operatively. HISTORY OF PRESENT ILLNESS: 68 y/o/f with no significant PMHx, s/p L1-S1 posterior decompression & T11-S1 instrumented fusion (08/26/2019) and now s/p I&D posterior thoracolumbar spine POD #0. She was discharged to [facility] for rehab after her initial surgery. As per her son, the son and daughter noticed on Monday of last week that the patient was having bloody drainage from her back that became purulent. While at [place] patient was transferred to [facility] for a CT chest and abdomen which depicted mild ileus and pneumonia of unknown location. She notes she has since been treated with unknown IV and oral antibiotics along with enemas secondary to constipation, with relief. Patient's family contacted Dr. Villa who arranged for the patient to return have surgery done again. Patient to return to OR in two days for recheck of wound. Patient states she had fevers and chills at the rehab center. Denies abd pain, headache, N/V/D, chest pain, SOB at this time. States that her pain is adequately controlled. REVIEW OF SYSTEMS: As per HPI PHYSICAL EXAMINATION Vital Signs - 24 hr 09/09/19 09/09/19 09/09/19 11:35 13:54 16:45 Temperature 98.2 F 98.9 F 97.8 F Pulse Rate 78 93 H Pulse Rate [ 76 Right Radial] Respiratory 16 19 15 Rate Blood Pressure 174/70 H 158/62 Blood Pressure 168/68 [Right Arm] O2 Sat by Pulse 100 100 100 Oximetry (%) 09/09/19 09/09/19 09/09/19 17:00 17:15 17:30 Temperature 97.8 F 97.8 F 97.8 F Pulse Rate 93 H 92 H 92 H Pulse Rate [ Right Radial] Respiratory 15 15 16 Rate Blood Pressure 140/63 135/63 139/62 Blood Pressure [Right Arm] O2 Sat by Pulse 100 100 100 Oximetry (%) 09/09/19 09/09/19 09/09/19 17:45 18:00 18:15 Temperature 97.8 F 97.8 F 97.8 F Pulse Rate 92 H 93 H 93 H Pulse Rate [ Right Radial] Respiratory 15 19 18 Rate Blood Pressure 135/63 144/72 147/68 Blood Pressure [Right Arm] O2 Sat by Pulse 100 100 100 Oximetry (%) 09/09/19 09/09/19 09/09/19 18:30 18:45 19:00 Temperature 98 F 98 F 98 F Pulse Rate 93 H 94 H 93 H Pulse Rate [ Right Radial] Respiratory 18 18 21 H Rate Blood Pressure 137/63 151/63 139/60 Blood Pressure [Right Arm] O2 Sat by Pulse 98 97 96 Oximetry (%) 09/09/19 09/09/19 09/09/19 19:15 19:30 19:45 Temperature 98 F 98 F 98 F Pulse Rate 92 H 92 H 93 H Pulse Rate [ Right Radial] Respiratory 16 14 13 Rate Blood Pressure 151/57 L 132/61 141/62 Blood Pressure [Right Arm] O2 Sat by Pulse 97 97 96 Oximetry (%) 09/09/19 09/09/19 09/09/19 20:00 20:15 20:30 Temperature 98 F 98 F 98 F Pulse Rate 93 H 92 H 89 Pulse Rate [ Right Radial] Respiratory 13 13 14 Rate Blood Pressure 136/68 132/57 L 146/60 Blood Pressure [Right Arm] O2 Sat by Pulse 96 97 98 Oximetry (%) 09/09/19 09/09/19 09/09/19 20:45 21:00 21:15 Temperature 14 F L 98 F 98 F Pulse Rate 147 H 92 H 90 Pulse Rate [ Right Radial] Respiratory 89 H 16 14 Rate Blood Pressure 146/60 143/65 134/60 Blood Pressure [Right Arm] O2 Sat by Pulse 98 98 98 Oximetry (%) 09/09/19 09/09/19 09/09/19 21:30 21:45 22:15 Temperature 98 F 98.4 F Pulse Rate 92 H 92 H 88 Pulse Rate [ Right Radial] Respiratory 13 13 16 Rate Blood Pressure 139/60 139/60 148/56 L Blood Pressure [Right Arm] O2 Sat by Pulse 98 98 Oximetry (%) 09/10/19 00:00 Temperature Pulse Rate 88 Pulse Rate [ Right Radial] Respiratory 13 Rate Blood Pressure 148/59 L Blood Pressure [Right Arm] O2 Sat by Pulse Oximetry (%) GENERAL: Awake, alert, and fully oriented, in no acute distress. HEAD: Normal with no signs of trauma. EYES: PERRL, EOMI, no scleral icterus EARS, NOSE, THROAT: dry mucous membranes. NECK: supple, trachea midline LUNGS: scattered rhonchi, no accessory muscle use. HEART: RRR, s1, s2. murmur noted ABDOMEN: Soft, nontender, not distended, normoactive bowel sounds, no guarding, no rebound, no masses. EXTREMITIES: 2+ pulses, warm, well-perfused. No calf tenderness. No peripheral edema. NEUROLOGICAL: Cranial nerves II-XII intact. Normal speech. gait not observed. Sensation grossly intact. PSYCHIATRIC: Cooperative. Good eye contact. Appropriate mood and affect. SKIN: Warm, dry, normal turgor Laboratory Results - last 24 hr 09/09/19 09/09/19 09/09/19 12:26 12:26 12:26 WBC 7.4 RBC 3.93 Hgb 10.6 L Hct 31.8 L MCV 80.7 MCH 26.9 MCHC 33.3 RDW 14.2 Plt Count 701 H D MPV 6.3 L D Absolute Neuts (auto) 5.3 Neutrophils % 72.1 Lymphocytes % 13.3 Monocytes % 13.2 H Eosinophils % 0.7 Basophils % 0.7 Nucleated RBC % 0 ESR 90 H PT with INR INR PTT (Actin FS) Sodium 136 Potassium 3.5 Chloride 99 Carbon Dioxide 27 Anion Gap 10 BUN 9.1 Creatinine 0.5 L Est GFR (CKD-EPI)AfAm 113.65 Est GFR (CKD-EPI)NonAf 98.06 Random Glucose 83 Calcium 9.2 Total Bilirubin 0.4 AST 52 H ALT 54 Alkaline Phosphatase 168 H C-Reactive Protein 13.9 H Total Protein 6.5 Albumin 2.5 L Urine Color Urine Appearance Urine pH Ur Specific [place] Urine Protein Urine Glucose (UA) Urine Ketones Urine Blood Urine Nitrite Urine Bilirubin Urine Urobilinogen Ur Leukocyte Esterase Blood Type Antibody Screen 09/09/19 09/09/19 09/09/19 12:26 12:26 14:53 WBC RBC Hgb Hct MCV MCH MCHC RDW Plt Count MPV Absolute Neuts (auto) Neutrophils % Lymphocytes % Monocytes % Eosinophils % Basophils % Nucleated RBC % ESR PT with INR 17.30 H INR 1.46 H PTT (Actin FS) 32.9 Sodium Potassium Chloride Carbon Dioxide Anion Gap BUN Creatinine Est GFR (CKD-EPI)AfAm Est GFR (CKD-EPI)NonAf Random Glucose Calcium Total Bilirubin AST ALT Alkaline Phosphatase C-Reactive Protein Total Protein Albumin Urine Color Yellow Urine Appearance Cloudy Urine pH 7.0 Ur Specific [place] 1.018 Urine Protein Trace Urine Glucose (UA) Negative Urine Ketones 1+ H Urine Blood Negative Urine Nitrite Negative Urine Bilirubin Negative Urine Urobilinogen 0.2 Ur Leukocyte Esterase Negative Blood Type A POSITIVE Antibody Screen Negative Active Medications Generic Name Dose Route Start Last Admin Trade Name Freq PRN Reason Stop Dose Admin Acetaminophen 1,000 mg 09/09/19 22:00 Ofirmev Injection - IVPB 09/10/19 14:01 Q8H FARAZ Hydromorphone HCl 10 mg 09/09/19 17:15 09/09/19 18:30 Hydromorphone 10 Mg/50 Ml-Ns HERB COUNSELOR 09/16/19 17:06 3.7 mg HERB COUNSELOR FARAZ Administration Protocol Lactated Ringer's 1,000 mls @ 125 mls/hr 09/09/19 16:45 Lactated Ringers Solution IV ASDIR FARAZ Piperacillin Sod/Tazobactam 100 mls @ 200 mls/hr 09/09/19 21:00 Sod 4.5 gm/ Dextrose IVPB Q6H-IV FARAZ Protocol Piperacillin Sod/Tazobactam 100 mls @ 200 mls/hr 09/09/19 21:00 Sod 4.5 gm/ Dextrose IVPB 09/10/19 09:29 Q6H-IV FARAZ Ondansetron HCl 4 mg 09/09/19 16:45 Zofran Injection IVPUSH Q6H PRN NAUSEA AND/OR VOMITING Vancomycin HCl 1,000 mg 09/10/19 16:00 Vancomycin (Pre-Docked) IVPB Q12H FARAZ Protocol Vancomycin HCl 1,000 mg 09/10/19 04:00 Vancomycin (Pre-Docked) IVPB 09/10/19 16:01 Q12H [facility] ASSESSMENT/PLAN: 68 y/o/f without significant medical history s/p L1-S1 posterior decompression & T11-S1 instrumented fusion (08/26/2019) and now s/p I&D posterior thoracolumbar spine POD #0. #Neuro - AAOx3 - Pain medication: per anaesthesia team; HERB COUNSELOR if needed; NO NSAID's. - WBAT B/L LE. - No heavy lifting (>5 lbs), bending or twisting x 6 months post op. - B/L UE & LE NV checks. - PT/OT/Rehab, OOB. -WBAT B/L LE. #Cardio - Monitor for signs of bradycardia, tachycadia - no active issues #Pulm - maintain O2 saturation >90% - encourage incentive spirometry #GI - NPO until flatus - Advance diet as tolerated. #ID - Vancomycin 1g q12h & Zosyn 4.5g IV q6h until OR culture sample speciation returns. - f/u OR wound cultures x 3 (aerobic, anaerobic, AFB, fungal). - Maintain woundvac @ 125mmHg negative pressure therapy. - 1 x Diflucan post-op. - Maintain tapia catheter until patient comfortably ambulating. - UA negative for UTI, f/u Urine cx #Prophylaxis - Mechanical only: VLADISLAV's, SCD's. #FEN - LR @125mls hr - monitor and replete lytes as needed #Disposition - ICU monitoring - plan to repeat I&D with application of wound vac 48 hrs. (09/11; NPO w/ IVF tomorrow at midnight). Visit type - Emergency Visit Emergency Visit: Yes ED Registration Date: 09/09/19 Care time: The patient presented to the Emergency Department on the above date and was hospitalized for further evaluation of their emergent condition. - New Patient This patient is new to me today: Yes Date on this admission: 09/10/19 - Critical Care Critical Care patient: Yes Total Critical Care Time (in minutes): 36 Critical Care Statement: The care of this patient involved high complexity decision making to prevent further life threatening deterioration of the patient 's condition and/or to evaluate & treat vital organ system(s) failure or risk of failure. ATTENDING PHYSICIAN STATEMENT I saw and evaluated the patient. I reviewed the resident's note and discussed the case with the resident. I agree with the resident's findings and plan as documented. SUBJECTIVE: OBJECTIVE: ASSESSMENT AND PLAN:
[2019-09-10] MEDS: PIPERACILLIN/TAZOB 4.5 GM 4.5 GM in DEXTROSE 5%-WATER 100 ML IVPB SCH ×3 (02:18→09:21)
[2019-09-10] MEDS: ACETAMINOPHEN 1000 MG/100 ML VIAL (NON FORMULARY) IVPB SCH ×3 (02:22→14:03)
[2019-09-10] MEDS: LACTATED RINGERS SOLUTION 1,000 ML IV SCH ×2 (02:55→17:36)
[2019-09-10] MEDS ORDERED: DEXTROSE 5%-WATER 100 ML IVPB ONE ×2 (03:05→09:14)
[2019-09-10] MEDS ORDERED: PIPERACILLIN/TAZOBACTAM 4.5 GM VIAL IVPB ONE ×2 (03:05→09:14)
[2019-09-10] MEDS ORDERED: VANCOMYCIN 1 GM in D5W (PRE-DOCKED) 1,000 MG/250 ML IVPB SCH ×3 (04:00→16:00)
[2019-09-10 07:01] LABS: BASO % 0.3 % (0-2.0); EOS % 0.1 % (0-4.5); HEMATOCRIT 27.5 % (32.4-45.2); HEMOGLOBIN 9.2 GM/dL (10.7-15.3); LYMPH % 15.8 % (8-40); MCH 26.8 pg (25.7-33.7); MCHC 33.6 g/dl (32.0-36.0); MEAN CELL VOLUME 79.8 fl (80-96); MEAN PLT VOLUME 6.3 fl (7.5-11.1); MONO % 10.7 % (3.8-10.2); NEUT % 73.1 % (42.8-82.8); PLATELET COUNT 661 K/MM3 (134-434); RBC 3.45 M/mm3 (3.60-5.2); RDW 14.3 % (11.6-15.6); WHITE BLOOD COUNT 8.8 K/mm3 (4.0-10.0)
[2019-09-10 07:34] LABS: ACTIVATED PTT 29.8 SECONDS (25.2-36.5); INR 1.65 (0.83-1.09); PROTHROMBIN TIME (PATIENT) 19.6 SEC (9.7-13.0)
[2019-09-10 07:53] LABS: BLOOD UREA NITROGEN 13.4 mg/dL (7-18); CALCIUM 8.7 mg/dL (8.5-10.1); CREATININE 0.5 mg/dL (0.55-1.3); MAGNESIUM 1.9 mg/dL (1.8-2.4); PHOSPHOROUS 3.3 mg/dL (2.5-4.9); POTASSIUM 3.8 mmol/L (3.5-5.1)
--- NOTE | 2019-09-10 08:27 | PN ---
Physical Exam: SUBJECTIVE: Patient seen and examined OBJECTIVE: Vital Signs Period Temp Pulse Resp BP Sys/No Pulse Ox Last 24 Hr 14 F-98.9 F 76-147 13-89 128-174/54-72 96-100 ASSESSMENT/PLAN: 68 y/o/f with no significant PMHx, s/p L1-S1 posterior decompression & T11-S1 instrumented fusion (08/26/2019) and now s/p I&D posterior thoracolumbar spine POD #0. She was discharged to [facility] for rehab after her initial surgery. Last zuleyma bloody, purulent drainage from back -> CT chest and abdomen: mild ileus and pneumonia of unknown location. She notes she has since been treated with unknown IV and oral antibiotics along with enemas secondary to constipation , with relief. Patient's family contacted Dr. Villa who arranged for the patient to return have surgery done again. Patient to return to OR in two days for recheck of wound. 68 y/o/f without significant medical history s/p L1-S1 posterior decompression & T11-S1 instrumented fusion (08/26/2019) and now s/p I&D posterior thoracolumbar spine POD #0. #Neuro - AAOx3 - Pain medication: per anaesthesia team; QUALITY DIRECTOR if needed; NO NSAID's. - WBAT B/L LE. - No heavy lifting (>5 lbs), bending or twisting x 6 months post op. - B/L UE & LE NV checks. - PT/OT/Rehab, OOB. -WBAT B/L LE. #Cardio - Monitor for signs of bradycardia, tachycadia - no active issues #Pulm - maintain O2 saturation >90% - encourage incentive spirometry #GI - NPO until flatus - Advance diet as tolerated. #ID - Vancomycin 1g q12h & Zosyn 4.5g IV q6h until OR culture sample speciation returns. - f/u OR wound cultures x 3 (aerobic, anaerobic, AFB, fungal). - Maintain woundvac @ 125mmHg negative pressure therapy. - 1 x Diflucan post-op. - Maintain tapia catheter until patient comfortably ambulating. - UA negative for UTI, f/u Urine cx #Prophylaxis - Mechanical only: VLADISLAV's, SCD's. #FEN - LR @125mls hr - monitor and replete lytes as needed #Disposition - ICU monitoring - plan to repeat I&D with application of wound vac 48 hrs. (09/11; NPO w/ IVF tomorrow at midnight). Visit type - Emergency Visit Emergency Visit: No - New Patient This patient is new to me today: No - Critical Care Critical Care patient: Yes Total Critical Care Time (in minutes): 39 Critical Care Statement: The care of this patient involved high complexity decision making to prevent further life threatening deterioration of the patient 's condition and/or to evaluate & treat vital organ system(s) failure or risk of failure. ATTENDING PHYSICIAN STATEMENT I saw and evaluated the patient. I reviewed the resident's note and discussed the case with the resident. I agree with the resident's findings and plan as documented. SUBJECTIVE: OBJECTIVE: ASSESSMENT AND PLAN:
--- NOTE | 2019-09-10 09:24 | PN ---
Progress Note (short form) - Note Progress Note: Hospitalist Medicine Pt without complaint this AM. +tapia draining. Without complaint Vitals 09/10/19 09/10/19 06:00 08:00 Temperature 98.2 F Pulse Rate 86 Respiratory 16 Rate Blood Pressure 121/51 L Physical Exam general: resting in bed, in NAD HEENT: NCAT neck: supple cardio: S1, S2, RRR. no r/m/g pulm: CTA b/l. no accessory m usage abdomen: nontender, nondistended back: +with brown d/c LE: no edema, pulses intact neuro: book coverer 2-12 grossly intact Laboratory Tests 09/09/19 09/10/19 09/10/19 14:53 06:00 06:00 WBC 8.8 Hgb 9.2 L Hct 27.5 L Plt Count 661 H PT with INR 19.60 H INR 1.65 H Sodium Potassium Chloride Carbon Dioxide BUN Creatinine Urine Ketones 1+ H Urine Blood Negative Urine Nitrite Negative Urine Bilirubin Negative 09/10/19 06:00 WBC Hgb Hct Plt Count PT with INR INR Sodium 136 Potassium 3.8 Chloride 101 Carbon Dioxide 25 BUN 13.4 Creatinine 0.5 L Urine Ketones Urine Blood Urine Nitrite Urine Bilirubin Microbiology 09/09/19: Ucx: pending 09/09/19: gram stain/cx: pending Imaging CXR: s/p anterior cervical fusion. orthopedic hardware is seen in the lower thoracic, upper lumbosacral spine. cardiomegaly. ucoiled thoracic aorta. no evidence of pneumothorax, or large pleural effusion. no evidence of pulm edema, vascular congestive changes. visualized osseous structures intact. atelectatic changes in right mid lung zone Assessment/Plan 68 y/o F with no significant PMH who presents s/p L1-S1 posterior decompression & T11-S1 instrumented fusion (08/26/2019) now p/w wound infection. #s/p L1-S1 posterior decompression & T11-S1 instrumented fusion (08/26/2019) -s/p I&D: PO Day 1, repeat I&D scheduled for tomorrow -intra-op: fluconazole x1 -on vanc, zosyn (Day 2) -f/u intraop wound cx, ucx -Maintain woundvac @ 125mmHg negative pressure therapy. -PT/OT/Rehab, OOB. -WBAT B/L LE. -incentive spirometer -pain control: MATERIAL SPREADER pump -ESR, CRP -ID: Dr. Tesfaye -Sx: Dr. Villa #F/E/N IV LR 125 cc/hr continue to follow lytes puree diet, NPO after MN tonight for procedure tomorrow #PPX mechanical only- SCD/TEDs #Dispo monitoring on med-surg post-op tapia until ambulating then d/c No heavy lifting (>5 lbs), bending or twisting x 6 months post op. plan to repeat I&D with application of wound vac 48 hrs. (09/11; NPO w/IVF tomorrow at midnight). <Soha Reilly - Last Filed: 09/10/19 09:43> - Note Progress Note: Seen and examined; agree with above aside from as supplemented below by myself. Personally verified all historical information and yang PE findings. Independently reviewed all labs and diagnostics. I discussed the case at length with the resident and consulting services. All questions answered. Seen in ICU No other complaints; wound vac @125mmHg with planned procedure tomorrow with repeat I&D Pain is controlled. No ongoing issues noted. Discussed case with ICU team and consulting services. Plan to repeat I&D tomorrow morning. Per operative report drained 400cc deep wound abscess; purulent, foul smelling. Prior imaging reviewed Labs pending Micro pending; prior micro reviewed Deferring further imaging to surgical specialties. ASSESSMENT/PLAN: Patient presents with postoperative wound infection s/p L1-S1 posterior decompression & T11-S1 instrumented fusion (08/26/2019). Problems include: -Postoperative wound infection (cultures pending, got broad spectrum + antifungal intraop. ID and nsgy following. Trend ESR, CRP, CBC.) -Acute on chronic thoracic and lumbar spine pain (pain control per sgy) - Full Code DVT px to be d/w sgy GI px if continued NPO Dispo pending final abx course and postoperative healing. <Christopher Goodwin - Last Filed: 09/10/19 11:18>
--- NOTE | 2019-09-10 10:36 | EKG ---
Test Reason : Blood Pressure : / mmHG Vent. Rate : 091 BPM Atrial Rate : 091 BPM P-R Int : 152 ms QRS Dur : 102 ms QT Int : 346 ms P-R-T Axes : -26 -15 065 degrees QTc Int : 425 ms NORMAL SINUS RHYTHM NONSPECIFIC T WAVE ABNORMALITY ABNORMAL ECG NO PREVIOUS ECGS AVAILABLE Confirmed by Zach Saenz MD ([id number]) on 09/10/2019 10:36:11 AM Referred By: Confirmed By:Zach Saenz MD
--- NOTE | 2019-09-10 11:33 | PN ---
Teaching Attending Note Name of Resident: Winston Knott ATTENDING PHYSICIAN STATEMENT I saw and evaluated the patient. I reviewed the resident's note and discussed the case with the resident. I agree with the resident's findings and plan as documented. SUBJECTIVE: Pt seen and examined in the ICU. Pain controlled. No shortness of breath or chest pain. No fevers. OBJECTIVE: Vital Signs Period Temp Pulse Resp BP Sys/No Pulse Ox Last 24 Hr 14 F-98.9 F 76-147 13-89 121-174/51-72 96-100 Intake & Output 09/07/19 09/08/19 09/09/19 09/10/19 23:59 23:59 23:59 23:59 Intake Total 1325 Output Total 250 450 Balance 1075 -450 Weight 95.254 kg Gen: NAD at rest Heart: RRR Lung: decreased breath sounds at te bases Abd: soft, nontender Ext: no edema CBC, BMP 09/10/19 06:00 09/10/19 06:00 Active Medications Acetaminophen (Ofirmev Injection -) 1,000 mg IVPB Q8H FARAZ Stop: 09/10/19 14:01 Last Admin: 09/10/19 07:04 Dose: 1,000 mg Hydromorphone HCl (Hydromorphone 10 Mg/50 Ml-Ns) 10 mg BUSINESS EDITOR BUSINESS EDITOR FARAZ; Protocol Stop: 09/16/19 17:06 Last Admin: 09/09/19 18:30 Dose: 3.7 mg Lactated Ringer's (Lactated Ringers Solution) 1,000 mls @ 125 mls/hr IV ASDIR FARAZ Last Admin: 09/10/19 02:55 Dose: Not Given Piperacillin Sod/Tazobactam (Sod 4.5 gm/ Dextrose) 100 mls @ 200 mls/hr IVPB Q6H-IV FARAZ; Protocol Ondansetron HCl (Zofran Injection) 4 mg IVPUSH Q6H PRN PRN Reason: NAUSEA AND/OR VOMITING Vancomycin HCl (Vancomycin (Pre-Docked)) 1,000 mg IVPB Q12H FARAZ; Protocol Vancomycin HCl (Vancomycin (Pre-Docked)) 1,000 mg IVPB Q12H FARAZ Stop: 09/10/19 16:01 Last Admin: 09/10/19 05:20 Dose: 1,000 mg ASSESSMENT AND PLAN: Thoracolumbar spine wound infection/Abscess s/p I&D Anemia - continue antibiotics - f/u cultures - pain control - incentive spirometry - DVT prophylaxis - disposition per surgery
--- NOTE | 2019-09-10 11:43 | PN ---
Progress Note (short form) - Note Progress Note: Anesthesia Post Op Note Pt seen s/p GA for multi level lumbar lami wash out Pt awake alert NAD denies n/v, puritis, no complaints reports good pain controll on GROMMET MACHINE OPERATOR VSS SpO2 99% on RA no apparent anesthesia complications continue GROMMET MACHINE OPERATOR Christiane Presley.
--- NOTE | 2019-09-10 13:36 | CON.ID ---
Consult Consult Specialty:: infectious diseases Referred by:: hospitalist Reason for Consultation:: back infection,post surgical - History of Present Illness Chief Complaint: back pain,drainage from the inscision site History of Present Illness: 68 y/o/f with no significant PMHx, s/p L1-S1 posterior decompression & T11-S1 instrumented fusion (08/26/2019) and now s/p I&D posterior thoracolumbar spine POD #0. She was discharged to [facility] for rehab after her initial surgery. As per her son, the son and daughter noticed on Monday of last week that the patient was having bloody drainage from her back that became purulent. While at [facility] patient was transferred to [facility] for a CT chest and abdomen which depicted mild ileus and pneumonia of unknown location. She notes she has since been treated with unknown IV and oral antibiotics along with enemas secondary to constipation, with relief. Patient's family contacted Dr. Villa who arranged for the patient to return have surgery done again. Patient to return to OR in two days for recheck of wound. Patient states she had fevers and chills at the rehab center. Denies abd pain, headache, N/V/D, chest pain, SOB at this time. States that her pain is adequately controlled. patient currently c/o of severe back pain,plan is to take the patient to the operating room cx have been send - History Source History Provided By: Patient, Family Member Limitations to Obtaining History: No Limitations - Past Medical History ...: No - Alcohol/Substance Use Hx Alcohol Use: No - Smoking History Smoking history: Unknown if ever smoked Home Medications - Allergies Allergies/Adverse Reactions: Allergies Allergy/AdvReac Type Severity Reaction Status Date / Time No Known Allergies Allergy Verified 08/26/19 11:14 - Home Medications Home Medications: Ambulatory Orders RX: Baclofen 10 mg PO BID 09/09/19 RX: Docusate Sodium [Colace] 100 mg PO DAILY 09/09/19 RX: Pantoprazole Sodium [Protonix] 40 mg PO DAILY 09/09/19 RX: Polyethylene Glycol 3350 [Miralax 119 gm Btl -] 17 gm PO DAILY 09/09/19 RX: Sennosides [Senna] 2 tab PO HS 09/09/19 RX: Amlodipine Besylate [Norvasc -] 10 mg PO DAILY #0 tablet 09/27/19 RX: Ceftriaxone [Rocephin -] 1 gm IVPB DAILY vial 09/27/19 RX: Chlorhexidine Gluconate [Hibiclens For Decolonization -] 1 applic TP HS bottle 09/27/19 RX: Labetalol HCl [Normodyne -] 100 mg PO BID tablet 09/27/19 RX: Lactobacillus Acidophilus [Bacid -] 1 tab PO TID tab 09/27/19 RX: oxyCODONE HCL [Roxicodone -] 10 mg PO Q4H PRN tablet MDD 60 mg 09/27/19 Review of Systems - Review of Systems Constitutional: reports: No Symptoms Eyes: reports: No Symptoms HENT: reports: No Symptoms Neck: reports: No Symptoms Cardiovascular: reports: No Symptoms Respiratory: reports: No Symptoms Gastrointestinal: reports: No Symptoms Genitourinary: reports: No Symptoms Musculoskeletal: reports: Back Pain, Other (draiange from the back) Neurological: reports: No Symptoms Endocrine: reports: No Symptoms Hematology/Lymphatic: reports: No Symptoms Psychiatric: reports: No Symptoms Physical Exam Vital Signs: Vital Signs Temperature 98.1 F 09/10/19 10:00 Pulse Rate 85 09/10/19 12:00 Respiratory Rate 17 09/10/19 12:00 Blood Pressure 95/76 09/10/19 12:00 O2 Sat by Pulse Oximetry (%) 98 09/10/19 09:00 Constitutional: Yes: Well Nourished, Calm, Moderate Distress, Obese Eyes: Yes: Conjunctiva Clear HENT: Yes: Atraumatic, Normocephalic Neck: Yes: Supple, Trachea Midline Cardiovascular: Yes: Regular Rate and Rhythm Respiratory: Yes: Regular, CTA Bilaterally Gastrointestinal: Yes: Normal Bowel Sounds, Soft Musculoskeletal: Yes: Back Pain, Other Extremities: Yes: WNL Wound/Incision: Yes: Dressing Dry and Intact, Draining Neurological: Yes: Alert, Oriented Psychiatric: Yes: Alert, Oriented Labs: CBC, BMP 09/10/19 06:00 09/10/19 06:00 Imaging - Results Chest X-ray: Report Reviewed, Image Reviewed Assessment/Plan Problem List - Problems (1) PANCHO (acute kidney injury) Code(s): N17.9 - ACUTE KIDNEY FAILURE, UNSPECIFIED (2) Wound infection after surgery Code(s): T81.49XA - INFECTION FOLLOWING A PROCEDURE, OTHER SURGICAL SITE, INIT (3) Hx of decompressive lumbar laminectomy Code(s): Z98.890 - OTHER SPECIFIED POSTPROCEDURAL STATES Assessment/Plan Thoraco-lumbar spine infection/abscess s/p I+D POD#4 PANCHO Anemia plan will start patient on broad spectrum abx await for all cx reports patient will need treatment for a long time patient needs and is going for a washout post washout cx need to be send watch fevers and renal function rest as per the team
--- NOTE | 2019-09-10 13:51 | PN ---
Progress Note (short form) - Note Progress Note: Surgery POD#1 I&D thoracolumbar spine patient seen and examined at bedside. Patient states she hungry and would like to eat. Her pain is controlled with the RADIOLOGY CT TECHNOLOGIST and she denies any new symptoms. She denies CP, SOB, N/V, fever and chills. Vital Signs Temp 98.1 F 09/10/19 10:00 Pulse 85 09/10/19 12:00 Resp 17 09/10/19 12:00 BP 95/76 09/10/19 12:00 Pulse Ox 98 09/10/19 09:00 Intake & Output 09/09/19 09/10/19 09/10/19 23:59 11:59 23:59 Intake Total 1325 Output Total 250 450 Balance 1075 -450 Weight 210 lb Intake: IV 1325 Output: Urine 250 450 Baird 450 Other: Voiding Method Indwelling Catheter Indwelling Catheter Bowel Movement Yes Height 5 ft 5 in Body Mass Index (BMI) 34.9 CBC, BMP 09/10/19 06:00 09/10/19 06:00 PE: A&Ox3, NAD unlabored resp on RA Spine: dressing c/d/i with Iodoform dressing intact. No evidence of collection or active d/c. no tracking erythema B/L LE compartments soft, supple and non-tender with +2 pedal pulses and 5/5 dorsi/plantar flexion. Problem List - Problems (1) Wound infection after surgery Assessment/Plan: POD #1 spinal exploration and wash out patient doing well with some post op anemia-currently asymptomatic. 1) Continue DVT prophylaxis 2) Trend labs 3) IV abx per ID 4) Advance diet as tolerated 5) OOB with PT 6) Encourage IS 7) Continue RADIOLOGY CT TECHNOLOGIST 8) F/u wound cultures Code(s): T81.49XA - INFECTION FOLLOWING A PROCEDURE, OTHER SURGICAL SITE, INIT
--- NOTE | 2019-09-10 15:12 | SPA.PREOP ---
- PRE-OP NOTE Dx: Thoracolumbar spine wound infection. Planned Procedure: Wound incision and drainage with wound vac placement Surgeon: Daisy Last Vital Signs Temp Pulse Resp BP Pulse Ox 98.1 F 80 19 132/48 L 98 09/10/19 10:00 09/10/19 14:00 09/10/19 14:00 09/10/19 14:00 09/10/19 09:00 Lab Results WBC 8.8 K/mm3 (4.0-10.0) 09/10/19 06:00 RBC 3.45 M/mm3 (3.60-5.2) L 09/10/19 06:00 Hgb 9.2 GM/dL (10.7-15.3) L 09/10/19 06:00 Hct 27.5 % (32.4-45.2) L 09/10/19 06:00 MCV 79.8 fl (80-96) L 09/10/19 06:00 MCHC 33.6 g/dl (32.0-36.0) 09/10/19 06:00 RDW 14.3 % (11.6-15.6) 09/10/19 06:00 Plt Count 661 K/MM3 (134-434) H 09/10/19 06:00 Sodium 136 mmol/L (136-145) 09/10/19 06:00 Potassium 3.8 mmol/L (3.5-5.1) 09/10/19 06:00 Chloride 101 mmol/L (98-107) 09/10/19 06:00 Carbon Dioxide 25 mmol/L (21-32) 09/10/19 06:00 Anion Gap 10 MMOL/L (8-16) 09/10/19 06:00 BUN 13.4 mg/dL (7-18) 09/10/19 06:00 Creatinine 0.5 mg/dL (0.55-1.3) L 09/10/19 06:00 Random Glucose 115 mg/dL (74-106) H 09/10/19 06:00 Calcium 8.7 mg/dL (8.5-10.1) 09/10/19 06:00 Blood Type A POSITIVE 09/09/19 12:26 Antibody Screen Negative 09/09/19 12: INR 1.65 (0.83-1.09) H 09/10/19 06:00 - ASSESSMENT/PLAN Problem List - Problems (1) Wound infection after surgery Assessment/Plan: 1. Make NPO after midnight except po meds 2. GI/DVT PPX 3. Medical optimization / clearance 4. Consent to be obtained by surgeon after risks, benefits and alternatives discussed with patient and or Health Care Proxy. Code(s): T81.49XA - INFECTION FOLLOWING A PROCEDURE, OTHER SURGICAL SITE, INIT
--- NOTE | 2019-09-10 16:40 | PN ---
Physical Exam: SUBJECTIVE: Patient seen and examined by the bedside. No overnight events. She had a BM, and is not complaining of pain. Requesting apple sauce. OBJECTIVE: Vital Signs Period Temp Pulse Resp BP Sys/No Pulse Ox Last 24 Hr 14 F-98.7 F 79-147 13-89 95-158/48-76 96-100 GENERAL: AOx3 HEAD: Normal with no signs of trauma. EYES: PERRL, EOMI EARS, NOSE, THROAT: dry mucous membranes. NECK: supple, trachea midline LUNGS: decerased breath sounds B/L HEART: RRR ABDOMEN: Soft, nontender, not distended, normoactive bowel sounds EXTREMITIES: 2+ pulses, warm, well-perfused. No calf tenderness. No peripheral edema. NEUROLOGICAL: Motor 5/5, sensations intact PSYCHIATRIC: Cooperative. Good eye contact. Appropriate mood and affect. SKIN: Warm, dry, normal turgor CBC, BMP 09/10/19 06:00 09/10/19 06:00 Current Medications Hydromorphone HCl (Hydromorphone 10 Mg/50 Ml-Ns) 10 mg CURTAIN SUPERVISOR CURTAIN SUPERVISOR FARAZ; Protocol Stop: 09/16/19 17:06 Last Admin: 09/09/19 18:30 Dose: 3.7 mg Lactated Ringer's (Lactated Ringers Solution) 1,000 mls @ 125 mls/hr IV ASDIR FARAZ Last Admin: 09/10/19 02:55 Dose: Not Given Vancomycin HCl 1,500 mg/ (Dextrose) 500 mls @ 250 mls/hr IVPB Q24H FARAZ; Protocol Piperacillin Sod/Tazobactam (Sod 3.375 gm/ Dextrose) 50 mls @ 100 mls/hr IVPB Q8H-IV FARAZ; Protocol Ondansetron HCl (Zofran Injection) 4 mg IVPUSH Q6H PRN PRN Reason: NAUSEA AND/OR VOMITING ASSESSMENT/PLAN: 68 y/o/f without significant medical history s/p L1-S1 posterior decompression & T11-S1 instrumented fusion (08/26/2019) and now s/p I&D posterior thoracolumbar spine POD #0. Scheduled for second I&D tomorrow for wound vac application #Neuro - AAOx3 - Pain medication: per anaesthesia team; CURTAIN SUPERVISOR if needed; NO NSAID's. - WBAT B/L LE. - No heavy lifting (>5 lbs), bending or twisting x 6 months post op. - B/L UE & LE NV checks. - PT/OT/Rehab, OOB. - WBAT B/L LE. #Cardio - No active issues #Pulm - Maintain O2 saturation >90% - Incentive spirometry #GI - No active issues, had 1 BM today #ID - Vancomycin 1g q12h & Zosyn 4.5g IV q6h until OR culture sample speciation returns. - f/u OR wound cultures x 3 (aerobic, anaerobic, AFB, fungal). - 1 x Diflucan post-op. #Renal - Baird in place - UA negative for UTI, f/u Urine cx #Prophylaxis - Mechanical only: VLADISLAV's, SCD's. #FEN - LR @125 - Puree diet, NPO after midnight for I&D tomorrow - monitor and replete lytes as needed #Disposition - ICU monitoring - plan to repeat I&D with application of wound vac 48 hrs. (09/11; NPO w/ IVF tomorrow at midnight). Visit type - Emergency Visit Emergency Visit: No - New Patient This patient is new to me today: No - Critical Care Critical Care patient: Yes Total Critical Care Time (in minutes): 36 Critical Care Statement: The care of this patient involved high complexity decision making to prevent further life threatening deterioration of the patient 's condition and/or to evaluate & treat vital organ system(s) failure or risk of failure. ATTENDING PHYSICIAN STATEMENT I saw and evaluated the patient. I reviewed the resident's note and discussed the case with the resident. I agree with the resident's findings and plan as documented. SUBJECTIVE: OBJECTIVE: ASSESSMENT AND PLAN:
[2019-09-10] MEDS ORDERED: DEXTROSE 5%-WATER - 50 ML IVPB ONE (17:22)
[2019-09-10] MEDS ORDERED: PIPERACILLIN/TAZOBACTAM 3.375 GM VIAL IVPB ONE (17:22)
[2019-09-10] MEDS ORDERED: PT OWN MED DRAWER 7, Y5N ONE (17:22)
[2019-09-10] MEDS: PIPERACILLIN/TAZOB 3.375 GM 3.375 GM in DEXTROSE 5%-WATER - 50 ML IVPB SCH (17:32)
[2019-09-10] MEDS: VANCOMYCIN HCL 1,500 MG in DEXTROSE 5%-WATER - 500 ML IVPB SCH (17:47)
[2019-09-10] MEDS: HYDROmorphone *PCA* 10MG/50ML DISP.SYRIN PCA SCH (20:11)
[2019-09-10] MEDS ORDERED: ACETAMINOPHEN 1000 MG/100 ML VIAL (NON FORMULARY) IVPB ONE (21:06)
[2019-09-10] MEDS ORDERED: BENZOCAINE/MENTH/CETYLPYRD CL 1 EACH LOZENGE MM PRN (23:06)
[2019-09-11] MEDS ORDERED: PIPERACILLIN/TAZOBACTAM 3.375 GM VIAL IVPB ONE ×3 (02:03→17:03)
[2019-09-11] MEDS ORDERED: DEXTROSE 5%-WATER - 50 ML IVPB ONE ×3 (02:03→17:03)
[2019-09-11] MEDS: PIPERACILLIN/TAZOB 3.375 GM 3.375 GM in DEXTROSE 5%-WATER - 50 ML IVPB SCH ×3 (02:08→17:05)
[2019-09-11 06:43] LABS: BASO % 0.4 % (0-2.0); EOS % 1.8 % (0-4.5); HEMATOCRIT 30.9 % (32.4-45.2); HEMOGLOBIN 10.6 GM/dL (10.7-15.3); MCH 27.6 pg (25.7-33.7); MCHC 34.2 g/dl (32.0-36.0); MEAN CELL VOLUME 80.8 fl (80-96); MEAN PLT VOLUME 6.5 fl (7.5-11.1); MONO % 10.4 % (3.8-10.2); NEUT % 62.4 % (42.8-82.8); PLATELET COUNT 690 K/MM3 (134-434); RBC 3.83 M/mm3 (3.60-5.2); RDW 14.3 % (11.6-15.6); WHITE BLOOD COUNT 9.2 K/mm3 (4.0-10.0)
[2019-09-11 07:22] LABS: BLOOD UREA NITROGEN 9.1 mg/dL (7-18); CALCIUM 8.6 mg/dL (8.5-10.1); CREATININE 0.5 mg/dL (0.55-1.3); MAGNESIUM 1.8 mg/dL (1.8-2.4); PHOSPHOROUS 2.6 mg/dL (2.5-4.9); POTASSIUM 3.7 mmol/L (3.5-5.1)
[2019-09-11] MEDS: LACTATED RINGERS SOLUTION 1,000 ML IV SCH ×3 (10:00→22:55)
--- NOTE | 2019-09-11 10:35 | PN ---
Progress Note (short form) - Note Progress Note: Pain Follow up after I and D of spine wound VSS,pain not under control yet. Awaiting another wound exploration tomorrow. A/P Continue the WIRE STRANDER till another back wash out. Lu Gallegos MD.
--- NOTE | 2019-09-11 11:17 | PN ---
Physical Exam: SUBJECTIVE: Patient seen and examined on morning ICU rounds. No acute overnight events. Received 2U PRBCs per surgery. NPO at midnight. IVF running. Flu cultures negative, vancomycin trough ordered. Patient without complaint. No CP / SOB / N / V / fevers / chills. Pain is adequately controlled with her SENIOR SOFTWARE MANAGER. OBJECTIVE: Vital Signs Period Temp Pulse Resp BP Sys/No Pulse Ox Last 24 Hr 97.8 F-98.2 F 62-85 13-21 95-141/40-109 97-99 GENERAL: AOx3 HEAD: Normal with no signs of trauma. EYES: PERRL, EOMI EARS, NOSE, THROAT: dry mucous membranes. NECK: supple, trachea midline LUNGS: decerased breath sounds B/L HEART: RRR ABDOMEN: Soft, nontender, not distended, normoactive bowel sounds EXTREMITIES: 2+ pulses, warm, well-perfused. No calf tenderness. No peripheral edema. NEUROLOGICAL: Motor 5/5, sensations intact PSYCHIATRIC: Cooperative. Good eye contact. Appropriate mood and affect. SKIN: Warm, dry, normal turgor Laboratory Results - last 24 hr 09/09/19 09/11/19 09/11/19 12:26 05:30 05:30 WBC 9.2 RBC 3.83 Hgb 10.6 L Hct 30.9 L MCV 80.8 MCH 27.6 MCHC 34.2 RDW 14.3 Plt Count 690 H MPV 6.5 L Absolute Neuts (auto) 5.7 Neutrophils % 62.4 Lymphocytes % 25.0 D Monocytes % 10.4 H Eosinophils % 1.8 D Basophils % 0.4 Nucleated RBC % 0 Sodium 136 Potassium 3.7 Chloride 102 Carbon Dioxide 29 Anion Gap 5 L BUN 9.1 Creatinine 0.5 L Est GFR (CKD-EPI)AfAm 113.65 Est GFR (CKD-EPI)NonAf 98.06 Random Glucose 81 Calcium 8.6 Phosphorus 2.6 Magnesium 1.8 Blood Type A POSITIVE Antibody Screen Negative Crossmatch See Detail Active Medications Generic Name Dose Route Start Last Admin Trade Name Freq PRN Reason Stop Dose Admin Benzocaine/Menthol 1 each 09/10/19 23:06 Cepacol Lozenge - MM PRN PRN SORE THROAT Hydromorphone HCl 10 mg 09/09/19 17:15 09/10/19 20:11 Hydromorphone 10 Mg/50 Ml-Ns SENIOR SOFTWARE MANAGER 09/16/19 17:06 10 mg SENIOR SOFTWARE MANAGER FARAZ Administration Protocol Lactated Ringer's 1,000 mls @ 125 mls/hr 09/09/19 16:45 09/10/19 17:36 Lactated Ringers Solution IV 125 mls/hr ASDIR FARAZ Administration Vancomycin HCl 1,500 mg/ 500 mls @ 250 mls/hr 09/10/19 18:00 09/10/19 17:47 Dextrose IVPB 250 mls/hr Q24H FARAZ Administration Protocol Piperacillin Sod/Tazobactam 50 mls @ 100 mls/hr 09/10/19 18:00 09/11/19 09:45 Sod 3.375 gm/ Dextrose IVPB 100 mls/hr Q8H-IV FARAZ Administration Protocol Ondansetron HCl 4 mg 09/09/19 16:45 Zofran Injection IVPUSH Q6H PRN NAUSEA AND/OR VOMITING ASSESSMENT/PLAN: 68 y/o/f without significant medical history s/p L1-S1 posterior decompression & T11-S1 instrumented fusion (08/26/2019) and now s/p I&D posterior thoracolumbar spine POD #0. Scheduled for second I&D 09/11 for wound vac application. #Neuro - AAOx3 - Pain medication: per anaesthesia team; hydromorphone SENIOR SOFTWARE MANAGER running; NO NSAID's. - WBAT B/L LE. - No heavy lifting (>5 lbs), bending or twisting x 6 months post op. - B/L UE & LE NV checks. - PT/OT/Rehab, OOB. - WBAT B/L LE. #Cardio - No active issues #Pulm - Maintain O2 saturation >90% - Incentive spirometry #GI - No active issues #ID - Vancomycin 1g q12h & Zosyn 4.5g IV q6h until OR culture sample speciation returns - f/u OR wound cultures x 3 (aerobic, anaerobic, AFB, fungal) - UCx negative - Wound culture with rare gram negative bacilli on stain, f/u - Vancomycin trough ordered - 1 x Diflucan post-op #Renal - Baird in place - UA negative for UTI, Urine cx negative #Prophylaxis - Mechanical only: VLADISLAV's, SCD's - Protonix 40mg daily #FEN - LR @125 - Puree diet, NPO after midnight for I&D tomorrow - Monitor and replete lytes as needed #Disposition - ICU monitoring - Plan to repeat I&D with application of wound vac 48 hrs. (09/11; NPO w/ IVF tomorrow at midnight). Visit type - Emergency Visit Emergency Visit: Yes ED Registration Date: 09/09/19 Care time: The patient presented to the Emergency Department on the above date and was hospitalized for further evaluation of their emergent condition. - New Patient This patient is new to me today: No - Critical Care Critical Care patient: Yes Total Critical Care Time (in minutes): 36 Critical Care Statement: The care of this patient involved high complexity decision making to prevent further life threatening deterioration of the patient 's condition and/or to evaluate & treat vital organ system(s) failure or risk of failure. ATTENDING PHYSICIAN STATEMENT I saw and evaluated the patient. I reviewed the resident's note and discussed the case with the resident. I agree with the resident's findings and plan as documented. SUBJECTIVE: OBJECTIVE: ASSESSMENT AND PLAN:
[2019-09-11 11:30] LABS: ANISOCYTOSIS 1+; MACROCYTOSIS 0; PLATELET ESTIMATE INCREASED
[2019-09-11] MEDS ORDERED: PANTOPRAZOLE SODIUM 40 MG VIAL IVPUSH SCH (11:30)
--- NOTE | 2019-09-11 11:32 | PN ---
Teaching Attending Note Name of Resident: Troy Quiroz ATTENDING PHYSICIAN STATEMENT I saw and evaluated the patient. I reviewed the resident's note and discussed the case with the resident. I agree with the resident's findings and plan as documented. SUBJECTIVE: Pt seen and examined in the ICU. Pain relatively controlled. c/o reflux overnight. No fevers or chills. OBJECTIVE: Vital Signs Period Temp Pulse Resp BP Sys/No Pulse Ox Last 24 Hr 97.8 F-98.2 F 62-85 13-21 95-141/40-109 97-99 Intake & Output 09/08/19 09/09/19 09/10/19 09/11/19 23:59 23:59 23:59 23:59 Intake Total 1325 3970 925 Output Total 250 1150 400 Balance 1075 2820 525 Weight 95.254 kg 103.737 kg Gen: NAD at rest Heart: RRR Lung: decreased breath sounds at the bases Abd: soft, nontender Ext: no edema CBC, BMP 09/11/19 05:30 09/11/19 05:30 Active Medications Benzocaine/Menthol (Cepacol Lozenge -) 1 each MM PRN PRN PRN Reason: SORE THROAT Hydromorphone HCl (Hydromorphone 10 Mg/50 Ml-Ns) 10 mg PLATING TECHNICIAN PLATING TECHNICIAN FARAZ; Protocol Stop: 09/16/19 17:06 Last Admin: 09/10/19 20:11 Dose: 10 mg Lactated Ringer's (Lactated Ringers Solution) 1,000 mls @ 125 mls/hr IV ASDIR FARAZ Last Admin: 09/10/19 17:36 Dose: 125 mls/hr Vancomycin HCl 1,500 mg/ (Dextrose) 500 mls @ 250 mls/hr IVPB Q24H FARAZ; Protocol Last Admin: 09/10/19 17:47 Dose: 250 mls/hr Piperacillin Sod/Tazobactam (Sod 3.375 gm/ Dextrose) 50 mls @ 100 mls/hr IVPB Q8H-IV FARAZ; Protocol Last Admin: 09/11/19 09:45 Dose: 100 mls/hr Ondansetron HCl (Zofran Injection) 4 mg IVPUSH Q6H PRN PRN Reason: NAUSEA AND/OR VOMITING Pantoprazole Sodium (Protonix Iv) 40 mg IVPUSH DAILY FARAZ ASSESSMENT AND PLAN: Thoracolumbar spine wound infection/Abscess s/p I&D Anemia - for OR today - continue antibiotics - f/u cultures - pain control - incentive spirometry - DVT prophylaxis - disposition per surgery
--- NOTE | 2019-09-11 12:38 | PN ---
Physical Exam: SUBJECTIVE: Patient seen and examined; to OR today for further debridement. Dr. Villa is surgeon of record 10 sys ROS done and negative aside from HPI OBJECTIVE: Vital Signs Period Temp Pulse Resp BP Sys/No Pulse Ox Last 24 Hr 97.8 F-98.2 F 62-84 13-21 121-141/40-109 97-99 GENERAL: The patient is awake, alert, and fully oriented, in no acute distress. HEAD: Normal with no signs of trauma. EYES: PERRL, extraocular movements intact, sclera anicteric, conjunctiva clear. No ptosis. ENT: Ears normal, nares patent, oropharynx clear without exudates, moist mucous membranes. NECK: Trachea midline, full range of motion, supple. LUNGS: Breath sounds equal, clear to auscultation bilaterally, no wheezes, no crackles, no accessory muscle use. HEART: Regular rate and rhythm, S1, S2 without murmur, rub or gallop. ABDOMEN: Soft, nontender, nondistended, normoactive bowel sounds, no guarding, no rebound, no hepatosplenomegaly, no masses. EXTREMITIES: 2+ pulses, warm, well-perfused, no edema. NEUROLOGICAL: Cranial nerves II through XII grossly intact. Normal speech, gait not observed. PSYCH: Normal mood, normal affect. SKIN: Warm, dry, normal turgor, no rashes or lesions noted Laboratory Results - last 24 hr 09/09/19 09/11/19 09/11/19 12:26 05:30 05:30 WBC 9.2 RBC 3.83 Hgb 10.6 L Hct 30.9 L MCV 80.8 MCH 27.6 MCHC 34.2 RDW 14.3 Plt Count 690 H MPV 6.5 L Absolute Neuts (auto) 5.7 Neutrophils % 62.4 Neutrophils % (Manual) 60.4 Band Neutrophils % 0.0 Lymphocytes % 25.0 D Lymphocytes % (Manual) 27.7 Monocytes % 10.4 H Monocytes % (Manual) 7 Eosinophils % 1.8 D Eosinophils % (Manual) 1.0 Basophils % 0.4 Basophils % (Manual) 1.0 Myelocytes % (Man) 1 Promyelocytes % (Man) 0 Blast Cells % (Manual) 0 Nucleated RBC % 0 Metamyelocytes 2 Hypochromia 0 Platelet Estimate Increased Polychromasia 1+ Poikilocytosis 1+ Anisocytosis 1+ Macrocytosis 0 Sodium 136 Potassium 3.7 Chloride 102 Carbon Dioxide 29 Anion Gap 5 L BUN 9.1 Creatinine 0.5 L Est GFR (CKD-EPI)AfAm 113.65 Est GFR (CKD-EPI)NonAf 98.06 Random Glucose 81 Calcium 8.6 Phosphorus 2.6 Magnesium 1.8 Blood Type A POSITIVE Antibody Screen Negative Crossmatch See Detail Active Medications Generic Name Dose Route Start Last Admin Trade Name Freq PRN Reason Stop Dose Admin Benzocaine/Menthol 1 each 09/10/19 23:06 Cepacol Lozenge - MM PRN PRN SORE THROAT Hydromorphone HCl 10 mg 09/09/19 17:15 09/10/19 20:11 Hydromorphone 10 Mg/50 Ml-Ns VIDEOGAME TESTER 09/16/19 17:06 10 mg VIDEOGAME TESTER FARAZ Administration Protocol Lactated Ringer's 1,000 mls @ 125 mls/hr 09/09/19 16:45 09/10/19 17:36 Lactated Ringers Solution IV 125 mls/hr ASDIR FARAZ Administration Vancomycin HCl 1,500 mg/ 500 mls @ 250 mls/hr 09/10/19 18:00 09/10/19 17:47 Dextrose IVPB 250 mls/hr Q24H FARAZ Administration Protocol Piperacillin Sod/Tazobactam 50 mls @ 100 mls/hr 09/10/19 18:00 09/11/19 09:45 Sod 3.375 gm/ Dextrose IVPB 100 mls/hr Q8H-IV FARAZ Administration Protocol Ondansetron HCl 4 mg 09/09/19 16:45 Zofran Injection IVPUSH Q6H PRN NAUSEA AND/OR VOMITING Pantoprazole Sodium 40 mg 09/11/19 11:30 09/11/19 11:32 Protonix Iv IVPUSH 40 mg DAILY FARAZ Administration ASSESSMENT/PLAN: Patient presents for postoperative wound infection; surgery and ID are following and she is being managed in the intensive care unit. All questions answered. Pain is controlled. Went back to OR in PM for further drainage. Plan per ortho is to follow labs and do mechanical DVT ppx and incentive twan and obtain PT with WBAT. Patient will have repeat I&D with exchange of wound vac dressing 48 hrs. (09/13; NPO w/IVF tomorrow at midnight). Problems include: -Postoperative wound infection -Acute blood loss anemia (sgy requests h/h be kept >08/14) -Acute on chronic back pain Visit type - Emergency Visit Emergency Visit: No - New Patient This patient is new to me today: No - Critical Care Critical Care patient: No
--- NOTE | 2019-09-11 13:15 | PN ---
Progress Note, Physician History of Present Illness: stable no new issues back pain - Current Medication List Current Medications: Active Medications Benzocaine/Menthol (Cepacol Lozenge -) 1 each MM PRN PRN PRN Reason: SORE THROAT Hydromorphone HCl (Hydromorphone 10 Mg/50 Ml-Ns) 10 mg CONDITIONING COACH CONDITIONING COACH FARAZ; Protocol Stop: 09/16/19 17:06 Last Admin: 09/10/19 20:11 Dose: 10 mg Lactated Ringer's (Lactated Ringers Solution) 1,000 mls @ 125 mls/hr IV ASDIR FARAZ Last Admin: 09/10/19 17:36 Dose: 125 mls/hr Vancomycin HCl 1,500 mg/ (Dextrose) 500 mls @ 250 mls/hr IVPB Q24H FARAZ; Protocol Last Admin: 09/10/19 17:47 Dose: 250 mls/hr Piperacillin Sod/Tazobactam (Sod 3.375 gm/ Dextrose) 50 mls @ 100 mls/hr IVPB Q8H-IV FARAZ; Protocol Last Admin: 09/11/19 09:45 Dose: 100 mls/hr Ondansetron HCl (Zofran Injection) 4 mg IVPUSH Q6H PRN PRN Reason: NAUSEA AND/OR VOMITING Pantoprazole Sodium (Protonix Iv) 40 mg IVPUSH DAILY [facility] Last Admin: 09/11/19 11:32 Dose: 40 mg - Objective Vital Signs: Vital Signs Temperature 98.2 F 09/11/19 10:00 Pulse Rate 82 09/11/19 12:17 Respiratory Rate 20 09/11/19 12:17 Blood Pressure 129/52 L 09/11/19 12:17 O2 Sat by Pulse Oximetry (%) 99 09/11/19 08:00 Constitutional: Yes: Calm, Mild Distress HENT: Yes: Atraumatic Neck: Yes: Supple, Trachea Midline Cardiovascular: Yes: Regular Rate and Rhythm Respiratory: Yes: Regular, CTA Bilaterally Gastrointestinal: Yes: Normal Bowel Sounds, Soft Musculoskeletal: Yes: WNL Extremities: Yes: Other Neurological: Yes: Alert, Oriented Psychiatric: Yes: Alert, Oriented Labs: CBC, BMP 09/11/19 05:30 09/11/19 05:30 INR, PTT INR 1.65 (0.83-1.09) H 09/10/19 06:00 Assessment/Plan Thoracolumbar spine wound infection/Abscess s/p I&D Anemia plan cx reports noted would continue abx for rewash probably can stop vanco rest as per the tem
[2019-09-11] MEDS ORDERED: ONDANSETRON 4 MG/2 ML VIAL IVPUSH PRN ×3 (15:33→22:22)
[2019-09-11] MEDS ORDERED: LACTATED RINGERS SOLUTION 1,000 ML IV SCH (15:45)
[2019-09-11] MEDS ORDERED: PT OWN MED DRAWER 7, Y5N ONE (17:04)
[2019-09-11] MEDS: VANCOMYCIN HCL 1,500 MG in DEXTROSE 5%-WATER - 500 ML IVPB SCH (18:06)
[2019-09-11] MEDS ORDERED: MIDAZOLAM HCL 2 MG/2 ML SINGLE DOSE VIAL ONE (18:55)
[2019-09-11] MEDS ORDERED: fentaNYL CITRATE 250 MCG/5 ML VIAL ONE (18:55)
[2019-09-11] MEDS ORDERED: NEOSTIGMINE METHYLSULFATE 0.5 MG/ML - 10 ML MDV ONE (20:35)
[2019-09-11] MEDS ORDERED: GLYCOPYRROLATE 0.2 MG/1 ML VIAL ONE (20:35)
[2019-09-11] MEDS ORDERED: PROPOFOL 20 ML ONE (20:56)
[2019-09-11] MEDS ORDERED: SUCCINYLCHOLINE CHLORIDE 200 MG/10 ML SYRINGE ONE (20:56)
--- NOTE | 2019-09-11 21:26 | PN ---
Progress Note (short form) - Note Progress Note: 68F s/p L1-S1 posterior decompression & T11-S1 instrumented fusion (08/26/2019) p/w 400cc epidural abscess (09/09/2019) now s/p I&D posterior thoracolumbar spine w/application wound vac POD #0. -Copious stool and flatus excreted immediately after intubation and after prone positioning. Intra-Op Findings: -Wound Dimensions: -Length: 60cm. -Width: 10cm. -Depth: 15cm. -Extensive bilateral erector spinae muscle necrosis debrided to depth of healthy , bleeding tissue. -Contamination of spinous processes lower thoracic spine. -Thin layer of granulation tissue overlying dura. -All metal hardware, bone, and soft tissue scrubbed/mechanically debrided extensively with sponges and diluted betadine soap. -6L NS irrigation. -Wounds approximated w/3 x #1 PDS suture. -Application wound vac. Plan: -Strict NPO, IVF d/t abdominal distention; strongly recommend placement of rectal tube to decompress GI tract; will require nutritional support. -Pain medication: per anaesthesia team; GRANTS OFFICER if needed; NO NSAID's. -Maintain woundvac @ 125mmHg negative pressure therapy. -f/u OR wound tissue culture. -IV antibiotics as per ID team. -f/u daily labs. -DVT PPx: -Mechanical only: VLADISLAV's, SCD's. -Incentive spirometry. -PT/OT/Rehab, OOB. -WBAT B/L LE. -B/L UE & LE NV checks. -No heavy lifting (>5 lbs), bending or twisting x 6 months post op. -Care per ICU, ID, & medical hospitalist teams. -Discharge planning: plan to repeat I&D with exchange of wound vac dressing 48 hrs. (09/13; NPO w/IVF tomorrow at midnight). -Will follow. Eliezer Villa MD (Orthopaedic Surgery).
--- NOTE | 2019-09-11 21:34 | OP ---
Operative Note - Note: Operative Date: 09/11/19 Pre-Operative Diagnosis: Deep thoracolumbar spine wound infection. Operation: 1. Incision, drainage, irrigation, debridement thoracolumbar spine. 2. Application wound vac thoracolumbar spine Post-Operative Diagnosis: Same as Pre-op Surgeon: Eliezer Villa Jinriksha Driver: Elder Villa Anesthesiologist/CREW MESS ATTENDANT: Rolando Noble Anesthesia: General Specimens Removed: Muscle. Estimated Blood Loss (mls): 50 Drains & Tubes with Location: WoundVac applied. Wound Dimensions: -Length: 60cm. -Width: 10cm. -Depth: 15cm. Fluid Volume Replaced (mls): 1,000 (Crystalloid) Operative Report Dictated: Yes
--- NOTE | 2019-09-11 21:57 | OP ---
Date of Operation: 09/11/2019 Surgeon: Eliezer Villa M.D. Autocad Electrical Designer: Elder Villa M.D. Pre-Operative Diagnosis: Deep thoracolumbar spine infection. Post-Operative Diagnosis: Deep thoracolumbar spine infection. Surgical Procedure: 1. Incision, drainage, debridement, and irrigation deep lumbar spine wound abscess (subfascial). (06010) 2. Application of negative pressure therapy wound vac (55674, [id number]) Anesthesia: General endotracheal tube anesthesia. Position: Prone. Incision: Midline. Estimated Blood Loss: Minimal. Intravenous Fluid: 1L crystalloid. Drains: 1 x WoundVac. Complications: None. Urine Output: See anesthesia record. Bacteriology: 3 x culture sticks. Closure: Application of wound vac. Indications: The patient is a 68-year-old female who was indicated for a incision, drainage, irrigation, and debridement of his/her posterior thoracolumbar spine wound to evacuate and treat local wound contamination. The patient was identified in the holding area by her arm band. A long discussion was held with the patient regarding the risks, benefits, and alternatives of the above-named procedure. The risks include, but are not limited to: Pain, bleeding, infection, damage to surrounding structures (including nerves, blood vessels, skin, ligaments, tendons, and bone), dysphagia, dysphonia, nerve palsy, wound complications, pseudarthrosis, failure of fusion, failure of hardware/implants/reduction, need for further surgery, blood clots, myocardial infarction, pulmonary embolism, cerebrovascular event, anesthesia complications, neurological injury, loss of function, and . Benefits as mentioned above. Alternatives include no surgery. All questions were answered. The patient understood and agreed to the procedure. Informed consent was obtained, witnessed, and verified. The patient was taken to the operating room after being seen by the anesthesia and nursing staff. Procedure: The patient was brought into the operating room, placed on the OR table and secured with a safety strap. Consent and the operative site was again verified with the patient and nursing and anesthesia staff. Anesthesia was then administered. A time-out was then done led by , the attending surgeon. Following intubation, the patient excessively defecated loose stool. Once she was cleaned up, the patient was then safely placed in a prone position with all bony prominences well-padded on a Bandar frame with strict attention paid to maintenance of sagittal vertical alignment. The arms were placed on well-padded arm boards and maintained with standard forward flexion, abduction, and external rotation of the shoulders, and flexion of the elbows. Special attention was given to the safe positioning of the cervical spine. The patients eyes, and belly were all free. The table was placed in 5 degrees of reverse Trendelenburg position to avoid ophthalmic vein congestion. After the patient was placed in the prone position, she excessively defecated loose stool once again. The patient and all feces were meticulously cleaned up. The dehisced wound site was then prepped and draped in the standard sterile fashion using betadine prep and scrub, wiped off with alcohol, and Duraprep applied. Pre-operative imaging was available for intra-operative evaluation. Time-out was again done, and the case began. The entirety of the previously made thoracolumbar spine incision was opened. All Lautenbach #1 PDS sutures were removed. All packing was removed. Culture swab sticks were used to swab the wound (deep and superficial) and sent to the lab. All hardware was exposed. The wound dimensions were measured as follows: Length: 30cm. Width: 10cm. Depth: 10cm. The wound was then irrigated with 3L normal saline solution. All soft tissues and hardware were and mechanically debrided using multiple sponges with betadine soap. The wound was then irrigated with another 3L normal saline solution. Patches of bilateral erector spinae muscle necrosis were debrided to depth of healthy, bleeding tissue. The dura was intact and there was no evidence of active cerebrospinal fluid (CSF ) leak nor active arterial or venous bleeding. Already, granulation tissue had grown over the exposed dura. Closure: With, hemostasis was assured, a the wound was packed with WoundVac sponges The superficial and deep tissues were approximated using #1 PDS monofilament sutures using Lautenbach sepsis suture technique. The skin was then cleaned, dried, and painted with DuraPrep. Adhesive Ioban and WoundVac dressing was applied. A tongue-type sponge was utilized to place the WoundVac suction device to the side of the patient's flank, so that she wouldn't be lying directly on it. The WoundVac was activated with 125mmHg negative pressure therapy. There was no suction leak. The sponges contracted into the wound, demonstrating successful WoundVac placement. Sponge and needle counts were correct at the end of the case, and I, the attending surgeon, was present and scrubbed throughout the case. The patient was then transferred to a supine position on a hopital bed. The patient was then extubated by the anesthesia staff without incident or complications and was then transferred to the recovery room in stable condition having tolerated the procedure well. Eliezer Villa M.D. [id number] [id number]
[2019-09-11] MEDS ORDERED: BENZOCAINE/MENTH/CETYLPYRD CL 1 EACH LOZENGE MM PRN (22:22)
[2019-09-11] MEDS: HYDROmorphone *PCA* 10MG/50ML DISP.SYRIN PCA SCH (22:52)
[2019-09-11] MEDS: CHLORHEXIDINE GLUCONATE 4% CLEANSER FOR DECOLONIZATION TP SCH (22:54)
[2019-09-11] MEDS: MUPIROCIN 2% TOPICAL OINTMENT FOR DECOLONIZATION NS SCH (22:55)
[2019-09-12] MEDS ORDERED: PIPERACILLIN/TAZOBACTAM 3.375 GM VIAL IVPB ONE ×3 (02:42→17:17)
[2019-09-12] MEDS ORDERED: DEXTROSE 5%-WATER - 50 ML IVPB ONE ×3 (02:42→17:17)
[2019-09-12] MEDS: PIPERACILLIN/TAZOB 3.375 GM 3.375 GM in DEXTROSE 5%-WATER - 50 ML IVPB SCH ×3 (02:49→18:16)
[2019-09-12 07:06] LABS: BASO % 0.5 % (0-2.0); EOS % 2.2 % (0-4.5); HEMATOCRIT 28.4 % (32.4-45.2); HEMOGLOBIN 9.6 GM/dL (10.7-15.3); LYMPH % 17.2 % (8-40); MCH 27.2 pg (25.7-33.7); MCHC 33.8 g/dl (32.0-36.0); MEAN CELL VOLUME 80.6 fl (80-96); MEAN PLT VOLUME 6.6 fl (7.5-11.1); NEUT % 71.1 % (42.8-82.8); PLATELET COUNT 639 K/MM3 (134-434); RBC 3.52 M/mm3 (3.60-5.2); RDW 14.4 % (11.6-15.6); WHITE BLOOD COUNT 9.3 K/mm3 (4.0-10.0)
[2019-09-12 07:38] LABS: ALBUMIN 1.9 g/dl (3.4-5.0); BILIRUBIN,TOTAL 0.5 mg/dL (0.2-1); BLOOD UREA NITROGEN 10.5 mg/dL (7-18); CALCIUM 8.5 mg/dL (8.5-10.1); CREATININE 1.1 mg/dL (0.55-1.3); MAGNESIUM 1.5 mg/dL (1.8-2.4); PHOSPHOROUS 3.6 mg/dL (2.5-4.9); POTASSIUM 3.7 mmol/L (3.5-5.1); TOT PROT 4.6 g/dl (6.4-8.2)
[2019-09-12] MEDS ORDERED: MAGNESIUM 4GM/H20 - 4 GM/100 ML IVPB IVPB ONE (08:35)
--- NOTE | 2019-09-12 09:16 | PN ---
Teaching Attending Note Name of Resident: Monse Tilley ATTENDING PHYSICIAN STATEMENT I saw and evaluated the patient. I reviewed the resident's note and discussed the case with the resident. I agree with the resident's findings and plan as documented. SUBJECTIVE: Pt seen and examined in the ICU. Thirsty. s/p wound vac placement. OBJECTIVE: Vital Signs Period Temp Pulse Resp BP Sys/No Pulse Ox Last 24 Hr 98.1 F-98.7 F 80-90 15-21 121-161/46-79 97-99 Intake & Output 09/09/19 09/10/19 09/11/19 09/12/19 23:59 23:59 23:59 23:59 Intake Total 1325 3970 2975 925 Output Total 250 1150 1355 550 Balance 1075 2820 1620 375 Weight 95.254 kg 103.419 kg 104.689 kg Gen: NAD at rest Heart: RRR Lung: decreased breath sounds at the bases Abd: soft, nontender Ext: no edema CBC, BMP 09/12/19 05:44 09/12/19 05:44 Active Medications Benzocaine/Menthol (Cepacol Lozenge -) 1 each MM PRN PRN PRN Reason: SORE THROAT Chlorhexidine Gluconate (Hibiclens For Decolonization -) 1 applic TP HS FARAZ Last Admin: 09/11/19 22:54 Dose: 1 applic Fentanyl (Sublimaze Injection -) 25 mcg IVPUSH [id number] PRN PRN Reason: PAIN-PACU ORDER X 4 DOSES ONLY Hydromorphone HCl (Hydromorphone 10 Mg/50 Ml-Ns) 10 mg CURTAIN STRETCHER ASSEMBLER CURTAIN STRETCHER ASSEMBLER FARAZ; Protocol Stop: 09/16/19 17:06 Last Admin: 09/11/19 22:52 Dose: Not Given Lactated Ringer's (Lactated Ringers Solution) 1,000 mls @ 125 mls/hr IV ASDIR FARAZ Last Admin: 09/11/19 22:55 Dose: Not Given Vancomycin HCl 1,500 mg/ (Dextrose) 500 mls @ 250 mls/hr IVPB Q24H FARAZ; Protocol Piperacillin Sod/Tazobactam (Sod 3.375 gm/ Dextrose) 50 mls @ 100 mls/hr IVPB Q8H-IV FARAZ; Protocol Last Admin: 09/12/19 02:49 Dose: 100 mls/hr Magnesium Sulfate (Magnesium 4gm/H20 -) 4 gm in 100 mls @ 100 mls/hr IVPB ONCE ONE Stop: 09/12/19 09:34 Mupirocin (Bactroban Ointment (For Decolonization) -) 1 applic NS BID [facility] Stop: 09/16/19 21:59 Last Admin: 09/11/19 22:55 Dose: Not Given Ondansetron HCl (Zofran Injection) 4 mg IVPUSH Q6H PRN PRN Reason: NAUSEA AND/OR VOMITING Ondansetron HCl (Zofran Injection) 4 mg IVPUSH Q6H PRN PRN Reason: NAUSEA AND/OR VOMITING Pantoprazole Sodium (Protonix Iv) 40 mg IVPUSH DAILY [facility] ASSESSMENT AND PLAN: Thoracolumbar spine wound infection/Abscess s/p I&D Anemia - for wound vac exchange tomorrow - continue antibiotics - f/u cultures - pain control - incentive spirometry - DVT prophylaxis - disposition per surgery
[2019-09-12] MEDS: HYDROmorphone *PCA* 10MG/50ML DISP.SYRIN PCA SCH (09:30)
--- NOTE | 2019-09-12 09:44 | PN ---
Physical Exam: SUBJECTIVE: Patient seen and examined. No acute events overnight. s/p Wound vac placement. no complaints except wanting to eat. OBJECTIVE: Vital Signs Period Temp Pulse Resp BP Sys/No Pulse Ox Last 24 Hr 98.1 F-98.7 F 80-90 15-21 121-161/46-79 97-99 GENERAL: a/o x 3 EYES: PERRL ENT:dry mucous membranes. NECK: supple. LUNGS: decreased breath sounds HEART: RRR ABDOMEN: soft, nt, nd EXTREMITIES: 2+ pulses, no edema. Laboratory Results - last 24 hr 09/11/19 09/12/19 09/12/19 05:30 05:44 05:44 WBC 9.3 RBC 3.52 L Hgb 9.6 L Hct 28.4 L MCV 80.6 MCH 27.2 MCHC 33.8 RDW 14.4 Plt Count 639 H MPV 6.6 L Absolute Neuts (auto) 6.6 Neutrophils % 71.1 Neutrophils % (Manual) 60.4 Band Neutrophils % 0.0 Lymphocytes % 17.2 D Lymphocytes % (Manual) 27.7 Monocytes % 9.0 Monocytes % (Manual) 7 Eosinophils % 2.2 Eosinophils % (Manual) 1.0 Basophils % 0.5 Basophils % (Manual) 1.0 Myelocytes % (Man) 1 Promyelocytes % (Man) 0 Blast Cells % (Manual) 0 Nucleated RBC % 0 Metamyelocytes 2 Hypochromia 0 Platelet Estimate Increased Polychromasia 1+ Poikilocytosis 1+ Anisocytosis 1+ Macrocytosis 0 Sodium Potassium Chloride Carbon Dioxide Anion Gap BUN Creatinine Est GFR (CKD-EPI)AfAm Est GFR (CKD-EPI)NonAf Random Glucose Calcium Phosphorus Magnesium Total Bilirubin AST ALT Alkaline Phosphatase Total Protein Albumin Vancomycin Pre-Dose 16.1 L 09/12/19 05:44 WBC RBC Hgb Hct MCV MCH MCHC RDW Plt Count MPV Absolute Neuts (auto) Neutrophils % Neutrophils % (Manual) Band Neutrophils % Lymphocytes % Lymphocytes % (Manual) Monocytes % Monocytes % (Manual) Eosinophils % Eosinophils % (Manual) Basophils % Basophils % (Manual) Myelocytes % (Man) Promyelocytes % (Man) Blast Cells % (Manual) Nucleated RBC % Metamyelocytes Hypochromia Platelet Estimate Polychromasia Poikilocytosis Anisocytosis Macrocytosis Sodium 139 Potassium 3.7 Chloride 104 Carbon Dioxide 26 Anion Gap 9 BUN 10.5 Creatinine 1.1 Est GFR (CKD-EPI)AfAm 58.91 Est GFR (CKD-EPI)NonAf 50.83 Random Glucose 74 Calcium 8.5 Phosphorus 3.6 Magnesium 1.5 L Total Bilirubin 0.5 AST 31 ALT 52 Alkaline Phosphatase 107 Total Protein 4.6 L Albumin 1.9 L Vancomycin Pre-Dose ASSESSMENT/PLAN: #Thoracolumbar spine wound infection/Abscess #s/p I&D #Anemia -pain control -npo for wound vac exchange -IVF -FU cultures -incentive spirometer -dvt ppx Visit type - Emergency Visit Emergency Visit: Yes ED Registration Date: 09/09/19 Care time: The patient presented to the Emergency Department on the above date and was hospitalized for further evaluation of their emergent condition. - New Patient This patient is new to me today: Yes Date on this admission: 09/12/19 - Critical Care Critical Care patient: Yes Total Critical Care Time (in minutes): 40 Critical Care Statement: The care of this patient involved high complexity decision making to prevent further life threatening deterioration of the patient 's condition and/or to evaluate & treat vital organ system(s) failure or risk of failure. ATTENDING PHYSICIAN STATEMENT I saw and evaluated the patient. I reviewed the resident's note and discussed the case with the resident. I agree with the resident's findings and plan as documented. SUBJECTIVE: OBJECTIVE: ASSESSMENT AND PLAN:
[2019-09-12 09:57] LABS: PLATELET ESTIMATE INCREASED
--- NOTE | 2019-09-12 10:18 | OP ---
Date of Operation: 09/09/2019 Surgeon: Eliezer Villa M.D. Esthetician Makeup Artist: None. Pre-Operative Diagnosis: Deep thoracolumbar spine infection. Post-Operative Diagnosis: Deep thoracolumbar spine infection. Surgical Procedure: 1. Incision, drainage, debridement, and irrigation deep lumbar spine wound abscess (subfascial). (23818) 2. Packing of thoracolumbar spine wound to allow drainage of complex abscess. (10916) Anesthesia: General endotracheal tube anesthesia. Position: Prone. Incision: Midline. Estimated Blood Loss: Minimal. Intravenous Fluid: 800cc crystalloid. Drains: None. Complications: None. Urine Output: See anesthesia record. Bacteriology: 3 x culture sticks. Closure: #1 PDS. Indications: The patient is a 68-year-old female who was indicated for a incision, drainage, irrigation, and debridement of her posterior thoracolumbar spine wound to evacuate and treat local wound contamination. The patient was identified in the holding area by her arm band. A long discussion was held with the patient regarding the risks, benefits, and alternatives of the above-named procedure. The risks include, but are not limited to: Pain, bleeding, infection, damage to surrounding structures (including nerves, blood vessels, skin, ligaments, tendons, and bone), dysphagia, dysphonia, nerve palsy, wound complications, pseudarthrosis, failure of fusion, failure of hardware/implants/reduction, need for further surgery, blood clots, myocardial infarction, pulmonary embolism, cerebrovascular event, anesthesia complications, neurological injury, loss of function, and . Benefits as mentioned above. Alternatives include no surgery. All questions were answered. The patient understood and agreed to the procedure. Informed consent was obtained, witnessed, and verified. The patient was taken to the operating room after being seen by the anesthesia and nursing staff. Procedure: The patient was brought into the operating room, placed on the OR table and secured with a safety strap. Consent and the operative site was again verified with the patient and nursing and anesthesia staff. Anesthesia was then administered. A time-out was then done led by , the attending surgeon. Following intubation, the patient excessively defecated loose stool. Once she was cleaned up, the patient was then safely placed in a prone position with all bony prominences well-padded on a Bandar frame with strict attention paid to maintenance of sagittal vertical alignment. The arms were placed on well-padded arm boards and maintained with standard forward flexion, abduction, and external rotation of the shoulders, and flexion of the elbows. Special attention was given to the safe positioning of the cervical spine. The patients eyes, and belly were all free. The table was placed in 5 degrees of reverse Trendelenburg position to avoid ophthalmic vein congestion. After the patient was placed in the prone position, she excessively defecated loose stool once again. The patient and all feces were meticulously cleaned up. The dehisced wound site was then prepped and draped in the standard sterile fashion using betadine prep and scrub, wiped off with alcohol, and Duraprep applied. Pre-operative imaging was available for intra-operative evaluation. Time-out was again done, and the case began. The entirety of the previously made thoracolumbar spine incision was opened. All supra-fascial sutures were removed. Thick, foul-smelling, purulent exudate was immediately decompressed from the supra-fascial wound. The abscess communicated with the subfascial space. The subfascial space was accessed by removing all fascial sutures. 3 deep culture swab sticks were used and sent to the lab. A total of 400cc of pus was evacuated from the thoracolumbar spine wound. All hardware was exposed. The wound dimensions were measured as follows: Length: 30cm. Width: 10cm. Depth: 10cm. The wound was irrigated with normal saline solution. All soft tissues and hardware were and mechanically debrided using multiple sponges with betadine soap. The wound was then irrigated with 3L normal saline solution. The wound was filled with 50% normal saline and 50% betadine solution. The wound was soaked in dilution betadine solution for 3 minutes. The wound was then irrigated with another 3L normal saline solution. The dura was intact and there was no evidence of active cerebrospinal fluid (CSF ) leak nor active arterial or venous bleeding. With, hemostasis was assured, a the wound was packed with unrolled Kerlix bandages that had been soaked in 50% diluted betadine solution. Next, the superficial (skin and subcutaneous) and deep (myofascial) soft tissues were approximated using #1 PDS monofilament suture, thus completing a Lautenbach wound sepsis closure technique. The incision was dressed with 4x4 gauze pads and ABD combine pads. The skin was painted with DuraPrep. The wound was then sealed with adhesive Ioban. Sponge and needle counts were correct at the end of the case, and I, the attending surgeon, was present and scrubbed throughout the case. The patient was then transferred to a supine position on a hopital bed. The patient was then extubated by the anesthesia staff without incident or complications and was then transferred to the recovery room in stable condition having tolerated the procedure well. Eliezer Villa M.D. [id number] MTDD
[2019-09-12] MEDS: PANTOPRAZOLE SODIUM 40 MG VIAL IVPUSH SCH (10:37)
[2019-09-12 10:41] LABS: INR 1.53 (0.83-1.09); PROTHROMBIN TIME (PATIENT) 18.1 SEC (9.7-13.0)
[2019-09-12] MEDS: MUPIROCIN 2% TOPICAL OINTMENT FOR DECOLONIZATION NS SCH ×2 (10:42→21:45)
--- NOTE | 2019-09-12 11:02 | PN ---
Progress Note (short form) - Note Progress Note: 68F s/p L1-S1 posterior decompression & T11-S1 instrumented fusion (08/26/2019) p/w 400cc epidural abscess (09/09/2019) now s/p I&D posterior thoracolumbar spine w/application wound vac POD #1. Pain well controlled. No acute events overnight. Pt. denies overnight history of headaches, chest pain, shortness of breath, nausea, vomiting, chills, & sweats. (+) Baird; (+) Flatus; (+) BM. All labs and vitals reviewed. PE: AAO x 3, NAD. T/L-Spine: Incision, dressing C/D/I, woundvac intact & in place. B/L LE NV status at baseline. 68F s/p L1-S1 posterior decompression & T11-S1 instrumented fusion (08/26/2019) p/w 400cc epidural abscess (09/09/2019) now s/p I&D posterior thoracolumbar spine w/application wound vac POD #1. -Strict NPO, IVF d/t abdominal distention. -Place rectal tube to decompress GI tract. -Plan to return to OR tomorrow for T/L spine I&D w/wound vac exchange VS delayed primary closure. -Transfuse 2U PRBC today in preparation for OR tomorrow. -f/u microbiology wound culture speciation. -Pain medication: per anaesthesia team; PAI GOW DEALER if needed; NO NSAID's. -Maintain woundvac @ 125mmHg negative pressure therapy. -f/u OR wound tissue culture. -IV antibiotics as per ID team. -f/u daily labs. -DVT PPx: -Mechanical only: VLADISLAV's, SCD's. -Incentive spirometry. -PT/OT/Rehab, OOB. -WBAT B/L LE. -B/L UE & LE NV checks. -No heavy lifting (>5 lbs), bending or twisting x 6 months post op. -Care per ICU, ID, & medical hospitalist teams. -Discharge planning: plan to repeat I&D with exchange of wound vac dressing 09/13; NPO w/IVF at midnight. -Will follow. Eliezer Villa MD (Orthopaedic Surgery).
--- NOTE | 2019-09-12 14:04 | PN ---
Progress Note (short form) - Note Progress Note: Seen and examined; agree with above aside from as supplemented below by myself. Personally verified all historical information and yang PE findings. Independently reviewed all labs and diagnostics. I discussed the case at length with the resident and consulting services. All questions answered. Seen in ICU Pain is controlled; no new complaints. Going back to OR tonight. Type and screen repeated. No CP, SOB. All questions answered 10 sys ROS done and negative aside from HPI VS, labs, imaging reviewed NAD, AAO, resting comfortably in bed. RRR s1/2 no mgr Normal muscle tone, moves all 5 extremities with normal apparent strength Neck is supple, trachea midline, no sher LN Lungs CTAB with sym expansion NT ND +BS no sher organomegaly CN2-12 wnl; no FND NC AT EOMI PERRLA Surgical site is clean dry and intact with no signs of cellulitis or bleeding Normal mood, appropriate behavior, euthymic affect No skin breakdown or rashes noted Prior imaging reviewed Labs pending Micro pending; prior micro reviewed Deferring further imaging to surgical specialties. ASSESSMENT/PLAN: Going back to the OR for third debridement and wound vac replacement with ortho. Continue to monitor in the ICU with orthopedic and PCCM consultations following. Problems include: -Postoperative wound infection -Acute blood loss anemia (sgy requests h/h be kept >08/14) -Acute on chronic back pain Full Code DVT px to be d/w sgy GI px if continued NPO Dispo pending final abx course and postoperative healing. Visit type - Emergency Visit Emergency Visit: Yes ED Registration Date: 09/09/19 Care time: The patient presented to the Emergency Department on the above date and was hospitalized for further evaluation of their emergent condition. - New Patient This patient is new to me today: No - Critical Care Critical Care patient: No
[2019-09-12 15:43] LABS: BASO % 0.7 % (0-2.0); EOS % 1.8 % (0-4.5); HEMATOCRIT 32.6 % (32.4-45.2); HEMOGLOBIN 10.7 GM/dL (10.7-15.3); LYMPH % 13.4 % (8-40); MCH 27.3 pg (25.7-33.7); MCHC 32.9 g/dl (32.0-36.0); MEAN CELL VOLUME 82.9 fl (80-96); MEAN PLT VOLUME 6.4 fl (7.5-11.1); MONO % 11.1 % (3.8-10.2); PLATELET COUNT 590 K/MM3 (134-434); RBC 3.93 M/mm3 (3.60-5.2); RDW 14.5 % (11.6-15.6); WHITE BLOOD COUNT 11.3 K/mm3 (4.0-10.0)
[2019-09-12] MEDS ORDERED: PT OWN MED DRAWER 7, Y5N ONE (17:18)
[2019-09-12 17:47] LABS: PLATELET ESTIMATE INCREASED
[2019-09-12] MEDS: LACTATED RINGERS SOLUTION 1,000 ML IV SCH (18:00)
[2019-09-12] MEDS: VANCOMYCIN HCL 1,500 MG in DEXTROSE 5%-WATER - 500 ML IVPB SCH (18:16)
[2019-09-12] MEDS: CHLORHEXIDINE GLUCONATE 4% CLEANSER FOR DECOLONIZATION TP SCH (21:45)
[2019-09-13] MEDS ORDERED: DEXTROSE 5%-WATER - 50 ML IVPB ONE ×3 (02:37→17:13)
[2019-09-13] MEDS ORDERED: PIPERACILLIN/TAZOBACTAM 3.375 GM VIAL IVPB ONE ×3 (02:37→17:13)
[2019-09-13] MEDS: PIPERACILLIN/TAZOB 3.375 GM 3.375 GM in DEXTROSE 5%-WATER - 50 ML IVPB SCH ×3 (02:52→17:15)
[2019-09-13] MEDS: LACTATED RINGERS SOLUTION 1,000 ML IV SCH ×2 (02:54→15:00)
--- NOTE | 2019-09-13 05:19 | PN ---
Progress Note, Physician Chief Complaint: s/p I&D thoracolumbar spine under general anesthesia post op day one History of Present Illness: BAG WASHER for post op pain - Current Medication List Current Medications: Active Medications Benzocaine/Menthol (Cepacol Lozenge -) 1 each MM PRN PRN PRN Reason: SORE THROAT Chlorhexidine Gluconate (Hibiclens For Decolonization -) 1 applic TP HS [facility] Last Admin: 09/12/19 21:45 Dose: 1 applic Fentanyl (Sublimaze Injection -) 25 mcg IVPUSH [id number] PRN PRN Reason: PAIN-PACU ORDER X 4 DOSES ONLY Hydromorphone HCl (Hydromorphone 10 Mg/50 Ml-Ns) 10 mg BAG WASHER BAG WASHER [facility]; Protocol Stop: 09/16/19 17:06 Last Admin: 09/12/19 09:30 Dose: 10 mg Lactated Ringer's (Lactated Ringers Solution) 1,000 mls @ 125 mls/hr IV ASDIR [facility] Last Admin: 09/13/19 02:54 Dose: 125 mls/hr Vancomycin HCl 1,500 mg/ (Dextrose) 500 mls @ 250 mls/hr IVPB Q24H [facility]; Protocol Last Admin: 09/12/19 18:16 Dose: 250 mls/hr Piperacillin Sod/Tazobactam (Sod 3.375 gm/ Dextrose) 50 mls @ 100 mls/hr IVPB Q8H-IV [facility]; Protocol Last Admin: 09/13/19 02:52 Dose: 100 mls/hr Mupirocin (Bactroban Ointment (For Decolonization) -) 1 applic NS BID [facility] Stop: 09/16/19 21:59 Last Admin: 09/12/19 21:45 Dose: 1 applic Ondansetron HCl (Zofran Injection) 4 mg IVPUSH Q6H PRN PRN Reason: NAUSEA AND/OR VOMITING Ondansetron HCl (Zofran Injection) 4 mg IVPUSH Q6H PRN PRN Reason: NAUSEA AND/OR VOMITING Pantoprazole Sodium (Protonix Iv) 40 mg IVPUSH DAILY [facility] Last Admin: 09/12/19 10:37 Dose: 40 mg - Objective Vital Signs: Vital Signs Temperature 98.8 F 09/12/19 18:00 Pulse Rate 88 09/13/19 04:00 Respiratory Rate 17 09/13/19 04:00 Blood Pressure 119/67 09/13/19 04:00 O2 Sat by Pulse Oximetry (%) 94 L 09/12/19 19:42 Constitutional: Yes: Well Nourished, Mild Distress Cardiovascular: Yes: WNL Respiratory: Yes: WNL Gastrointestinal: Yes: WNL Labs: CBC, BMP 09/12/19 15:20 09/12/19 05:44 INR, PTT INR 1.53 (0.83-1.09) H 09/12/19 09:46 Assessment/Plan Pain controlled by BAG WASHER, no nausea or vomiting currently, patient states she will be returning to OR the following day, will keep bellstand attendant for now
[2019-09-13 07:14] LABS: BASO % 0.5 % (0-2.0); EOS % 2.5 % (0-4.5); HEMATOCRIT 29.6 % (32.4-45.2); HEMOGLOBIN 10.1 GM/dL (10.7-15.3); LYMPH % 15.8 % (8-40); MCH 27.6 pg (25.7-33.7); MCHC 34.3 g/dl (32.0-36.0); MEAN CELL VOLUME 80.5 fl (80-96); MONO % 10.6 % (3.8-10.2); NEUT % 70.6 % (42.8-82.8); PLATELET COUNT 578 K/MM3 (134-434); RBC 3.67 M/mm3 (3.60-5.2); RDW 14.6 % (11.6-15.6); WHITE BLOOD COUNT 9.8 K/mm3 (4.0-10.0)
[2019-09-13 07:21] LABS: INR 1.69 (0.83-1.09)
[2019-09-13 07:35] LABS: ALBUMIN 1.9 g/dl (3.4-5.0); BILIRUBIN,TOTAL 0.5 mg/dL (0.2-1); BLOOD UREA NITROGEN 17.2 mg/dL (7-18); CALCIUM 8.3 mg/dL (8.5-10.1); CREATININE 2.6 mg/dL (0.55-1.3); MAGNESIUM 2.5 mg/dL (1.8-2.4); PHOSPHOROUS 4.3 mg/dL (2.5-4.9); POTASSIUM 3.7 mmol/L (3.5-5.1); TOT PROT 4.8 g/dl (6.4-8.2)
--- NOTE | 2019-09-13 08:40 | SPA.PREOP ---
- PRE-OP NOTE Dx: Deep thoracolumbar spine wound infection. Planned Procedure: Washout / debridement thoracolumbar spine. Application wound VAC Surgeon: Eliezer Villa Last Vital Signs Temp Pulse Resp BP Pulse Ox 98.8 F 77 17 167/93 94 L 09/12/19 18:00 09/13/19 08:00 09/13/19 08:00 09/13/19 08:00 09/12/19 19:42 Lab Results WBC 9.8 K/mm3 (4.0-10.0) 09/13/19 05:45 RBC 3.67 M/mm3 (3.60-5.2) 09/13/19 05:45 Hgb 10.1 GM/dL (10.7-15.3) L 09/13/19 05:45 Hct 29.6 % (32.4-45.2) L 09/13/19 05:45 MCV 80.5 fl (80-96) 09/13/19 05:45 MCHC 34.3 g/dl (32.0-36.0) 09/13/19 05:45 RDW 14.6 % (11.6-15.6) 09/13/19 05:45 Plt Count 578 K/MM3 (134-434) H 09/13/19 05:45 Sodium 136 mmol/L (136-145) 09/13/19 05:45 Potassium 3.7 mmol/L (3.5-5.1) 09/13/19 05:45 Chloride 103 mmol/L (98-107) 09/13/19 05:45 Carbon Dioxide 26 mmol/L (21-32) 09/13/19 05:45 Anion Gap 7 MMOL/L (8-16) L 09/13/19 05:45 BUN 17.2 mg/dL (7-18) 09/13/19 05:45 Creatinine 2.6 mg/dL (0.55-1.3) H 09/13/19 05:45 Random Glucose 84 mg/dL (74-106) 09/13/19 05:45 Calcium 8.3 mg/dL (8.5-10.1) L 09/13/19 05:45 Blood Type A POSITIVE 09/09/19 12:26 Antibody Screen Negative 09/09/19 12:26 INR 1.69 (0.83-1.09) H 09/13/19 05:45 - ASSESSMENT/PLAN 1. Keep NPO except po meds 2. GI/DVT PPX 3. Medical optimization / clearance 4. Rectal tube for decompression 4. Consent to be obtained by surgeon after risks, benefits and alternatives discussed with patient and or Health Care Proxy. Problem List - Problems (1) Wound infection after surgery Code(s): T81.49XA - INFECTION FOLLOWING A PROCEDURE, OTHER SURGICAL SITE, INIT (2) Hx of decompressive lumbar laminectomy Code(s): Z98.890 - OTHER SPECIFIED POSTPROCEDURAL STATES Visit type - Case Type Case Type: ED Admission
[2019-09-13] MEDS ORDERED: PT OWN MED DRAWER 7, Y5N ONE ×2 (09:54→17:13)
[2019-09-13] MEDS: PANTOPRAZOLE SODIUM 40 MG VIAL IVPUSH SCH (10:19)
[2019-09-13] MEDS: MUPIROCIN 2% TOPICAL OINTMENT FOR DECOLONIZATION NS SCH ×2 (10:23→21:07)
[2019-09-13] MEDS: HYDROmorphone *PCA* 10MG/50ML DISP.SYRIN PCA SCH (12:48)
--- NOTE | 2019-09-13 14:33 | PN ---
Progress Note, Physician History of Present Illness: stable c/o of pain wound cx noted still pending - Current Medication List Current Medications: Active Medications Benzocaine/Menthol (Cepacol Lozenge -) 1 each MM PRN PRN PRN Reason: SORE THROAT Chlorhexidine Gluconate (Hibiclens For Decolonization -) 1 applic TP HS [facility] Last Admin: 09/12/19 21:45 Dose: 1 applic Fentanyl (Sublimaze Injection -) 25 mcg IVPUSH [id number] PRN PRN Reason: PAIN-PACU ORDER X 4 DOSES ONLY Hydromorphone HCl (Hydromorphone 10 Mg/50 Ml-Ns) 10 mg SPEEDER OPERATOR SPEEDER OPERATOR [facility]; Protocol Stop: 09/16/19 17:06 Last Admin: 09/13/19 12:48 Dose: 10 mg Lactated Ringer's (Lactated Ringers Solution) 1,000 mls @ 125 mls/hr IV ASDIR [facility] Last Admin: 09/13/19 02:54 Dose: 125 mls/hr Vancomycin HCl 1,500 mg/ (Dextrose) 500 mls @ 250 mls/hr IVPB Q24H [facility]; Protocol Last Admin: 09/12/19 18:16 Dose: 250 mls/hr Piperacillin Sod/Tazobactam (Sod 3.375 gm/ Dextrose) 50 mls @ 100 mls/hr IVPB Q8H-IV [facility]; Protocol Last Admin: 09/13/19 10:21 Dose: 100 mls/hr Methylnaltrexone Foreman (Relistor -) 12 mg SQ ONCE ONE Stop: 09/14/19 12:34 Mupirocin (Bactroban Ointment (For Decolonization) -) 1 applic NS BID [facility] Stop: 09/16/19 21:59 Last Admin: 09/13/19 10:23 Dose: 1 applic Ondansetron HCl (Zofran Injection) 4 mg IVPUSH Q6H PRN PRN Reason: NAUSEA AND/OR VOMITING Ondansetron HCl (Zofran Injection) 4 mg IVPUSH Q6H PRN PRN Reason: NAUSEA AND/OR VOMITING Pantoprazole Sodium (Protonix Iv) 40 mg IVPUSH DAILY [facility] Last Admin: 09/13/19 10:19 Dose: 40 mg - Objective Vital Signs: Vital Signs Temperature 98.6 F 09/13/19 12:00 Pulse Rate 76 09/13/19 12:48 Respiratory Rate 17 09/13/19 12:48 Blood Pressure 144/61 09/13/19 12:48 O2 Sat by Pulse Oximetry (%) 95 09/13/19 12:48 Constitutional: Yes: Calm, Mild Distress Cardiovascular: Yes: S1, S2 Respiratory: Yes: Regular, CTA Bilaterally Gastrointestinal: Yes: Soft, Hypoactive Bowel Sounds Musculoskeletal: Yes: Back Pain, Other Wound/Incision: Yes: Other (wound vac in place) Neurological: Yes: Alert, Oriented Psychiatric: Yes: Alert, Oriented Labs: CBC, BMP 09/13/19 05:45 09/13/19 05:45 INR, PTT INR 1.69 (0.83-1.09) H 09/13/19 05:45 Assessment/Plan Thoracolumbar spine wound infection/Abscess s/p I&D Anemia plan cx reports noted would continue abx await for identification of the organism wound care rest as per the team
[2019-09-13] MEDS: VANCOMYCIN HCL 1,500 MG in DEXTROSE 5%-WATER - 500 ML IVPB SCH (17:18)
--- NOTE | 2019-09-13 17:22 | PN ---
Progress Note (short form) - Note Progress Note: Hospitalist Medicine c/o cont'd pain in back and hunger. For repeat washout, debridement thoracolumbar spine. Currently receiving 1U PRBCs per sx. Vitals 09/13/19 09/13/19 14:00 16:00 Temperature 98.5 F Pulse Rate 79 Respiratory 15 Rate Blood Pressure 142/65 Physical Exam general: resting in bed, in mild distress HEENT: NCAT, PERRLA neck: supple cardio: S1, S2, RRR. no r/m/g pulm: CTA b/l. no accessory m usage abdomen: nontender, nondistended back: unable to see dressing. pt with increased pain on ROM LE: no edema, pulses intact neuro: head sawyer 2-12 grossly intact +wound vac Laboratory Tests 09/13/19 09/13/19 09/13/19 05:45 05:45 05:45 WBC 9.8 Hgb 10.1 L Hct 29.6 L Plt Count 578 H PT with INR 20.00 H INR 1.69 H Sodium 136 Potassium 3.7 Chloride 103 Carbon Dioxide 26 BUN 17.2 Creatinine 2.6 H Est GFR (CKD-EPI)AfAm 20.82 Est GFR (CKD-EPI)NonAf 17.96 Calcium 8.3 L Phosphorus 4.3 Magnesium 2.5 H Total Protein 4.8 L Albumin 1.9 L Microbiology 09/09/19 16:30 Back Gram Stain - Final 09/09/19 14:53 Urine - Urine - Catheterized Urine Culture - Final NO GROWTH OBTAINED 09/12/19 15:28 Blood - Peripheral Venous Blood Culture - Preliminary NO GROWTH OBTAINED AFTER 24 HOURS, INCUBATION TO CONTINUE FOR 4 DAYS. 09/12/19 15:20 Blood - Peripheral Venous Blood Culture - Preliminary NO GROWTH OBTAINED AFTER 24 HOURS, INCUBATION TO CONTINUE FOR 4 DAYS. 09/09/19 16:30 Back Wound Culture - Preliminary Escherichia Coli Pending Organism Pending Organism#2 Imaging CXR: s/p anterior cervical fusion. orthopedic hardware is seen in the lower thoracic, upper lumbosacral spine. cardiomegaly. ucoiled thoracic aorta. no evidence of pneumothorax, or large pleural effusion. no evidence of pulm edema, vascular congestive changes. visualized osseous structures intact. atelectatic changes in right mid lung zone Assessment/Plan 68 y/o F with no significant PMH who presents s/p L1-S1 posterior decompression & T11-S1 instrumented fusion (08/26/2019) now p/w wound infection. #s/p L1-S1 posterior decompression & T11-S1 instrumented fusion (08/26/2019) -s/p I&D x 2 now for repeat washout, debridement thoracolumbar spine -on vanc, zosyn - restarted 09/12 -back wound cx (+) E. coli, pending organisms. await c+s -Maintain woundvac @ 125mmHg negative pressure therapy. -incentive spirometer -pain control: SUPERINTENDENT CAR CONSTRUCTION pump -rectal tube for decompression requested by sx -ID: Dr. Tesfaye -Sx: Dr. Villa #F/E/N IV LR 125 cc/hr continue to follow lytes NPO after MN; except PO meds #PPX mechanical only- SCD/TEDs GI: protonix #Dispo ICU monitoring for repeat washout, debridement thoracolumbar spine <Soha Reilly - Last Filed: 09/13/19 17:31> - Note Progress Note: Seen and examined; agree with above aside from as supplemented below by myself. Personally verified all historical information and yang PE findings. Independently reviewed all labs and diagnostics. I discussed the case at length with the resident and consulting services. All questions answered. Seen in ICU Going back to the OR for a fourth debridement and wound vac replacement with ortho per nursing. I was not aware of this until I was informed by the nurse; we will clarify and obtain consent prior to procedure. Continue to monitor in the ICU with orthopedic and PCCM consultations following. 10 sys ROS done and negative aside from HPI VS, labs, imaging reviewed NAD AAO resting in bed RRR s1/2 NT ND +BS CN2-12 wnl, no fnd Wound with dressing c/d/i, wound vac attached draining appropriately as documented Lungs CTAB, w/ sym exp Trachea midlines, no LN, no JVD Skin without rashes or breakdown; postop findings obscured by bandage. Moves all 4 ext with 5/5 strength A/P: Patient remains in the ICU with PCCM and ortho monitoring; ID consulted as well. Appreciate expert management with the ongoing care of this patient and hospitalist will continue to follow alongside. Problems include: -Postoperative wound infection (apparently going for forth debridement; will discuss with surgical services) -Acute blood loss anemia (sgy requests h/h be kept >08/14) -Acute on chronic back pain -Morbid obesity -hypoalbuminemia -elevated alk phos -acute on chronic back pain s/p operative fixation Full Code Continue SCDs GI px if continued NPO Dispo pending final abx course and postoperative healing. <Christopher Goodwin - Last Filed: 09/14/19 10:04>
[2019-09-13] MEDS: CHLORHEXIDINE GLUCONATE 4% CLEANSER FOR DECOLONIZATION TP SCH (21:06)
[2019-09-13] MEDS ORDERED: DEXTROSE 5%-0.45% SALINE 1,000 ML IV SCH (23:45)
[2019-09-14] MEDS ORDERED: PIPERACILLIN/TAZOBACTAM 3.375 GM VIAL IVPB ONE ×2 (03:09→10:48)
[2019-09-14] MEDS ORDERED: DEXTROSE 5%-WATER - 50 ML IVPB ONE ×3 (03:10→17:50)
[2019-09-14] MEDS: PIPERACILLIN/TAZOB 3.375 GM 3.375 GM in DEXTROSE 5%-WATER - 50 ML IVPB SCH ×2 (03:16→10:51)
[2019-09-14] MEDS: HYDROmorphone *PCA* 10MG/50ML DISP.SYRIN PCA SCH ×3 (03:44→14:05)
[2019-09-14 07:38] LABS: BASO % 0.4 % (0-2.0); EOS % 2.9 % (0-4.5); HEMATOCRIT 33.5 % (32.4-45.2); HEMOGLOBIN 11.3 GM/dL (10.7-15.3); LYMPH % 15.3 % (8-40); MCH 27.6 pg (25.7-33.7); MCHC 33.9 g/dl (32.0-36.0); MEAN CELL VOLUME 81.4 fl (80-96); MEAN PLT VOLUME 6.2 fl (7.5-11.1); MONO % 11.7 % (3.8-10.2); NEUT % 69.7 % (42.8-82.8); PLATELET COUNT 550 K/MM3 (134-434); RBC 4.12 M/mm3 (3.60-5.2); RDW 14.8 % (11.6-15.6)
[2019-09-14 07:49] LABS: BLOOD UREA NITROGEN 20.4 mg/dL (7-18); CALCIUM 8.4 mg/dL (8.5-10.1); CREATININE 3.3 mg/dL (0.55-1.3); MAGNESIUM 2.4 mg/dL (1.8-2.4); PHOSPHOROUS 4.4 mg/dL (2.5-4.9); POTASSIUM 3.4 mmol/L (3.5-5.1)
[2019-09-14] MEDS ORDERED: SUCCINYLCHOLINE CHLORIDE 200 MG/10 ML SYRINGE ONE (08:40)
[2019-09-14] MEDS ORDERED: PROPOFOL 20 ML ONE ×3 (08:40)
[2019-09-14] MEDS ORDERED: fentaNYL CITRATE 250 MCG/5 ML VIAL ONE (08:40)
[2019-09-14] MEDS ORDERED: BENZOIN TINCTURE SWABSTICK TP ONE (08:41)
[2019-09-14] MEDS ORDERED: ROCURONIUM BROMIDE 50 MG/5 ML SYRINGE ONE (08:56)
[2019-09-14 09:17] LABS: PLATELET ESTIMATE INCREASED
--- NOTE | 2019-09-14 09:40 | PN ---
Physical Exam: SUBJECTIVE: Patient seen and examined; still making urine but renal function noted to slightly be worsened. Nephro eval pending. Hypo Na noted. 10 sys ROS done and negative aside from HPI OBJECTIVE: Vital Signs Period Temp Pulse Resp BP Sys/No Pulse Ox Last 24 Hr 98 F-99.5 F 74-89 15-19 124-147/55-83 94-95 GENERAL: The patient is awake, alert, and fully oriented, in no acute distress. HEAD: Normal with no signs of trauma. EYES: PERRL, extraocular movements intact, sclera anicteric, conjunctiva clear. No ptosis. ENT: Ears normal, nares patent, oropharynx clear without exudates, moist mucous membranes. NECK: Trachea midline, full range of motion, supple. LUNGS: Breath sounds equal, clear to auscultation bilaterally, no wheezes, no crackles, no accessory muscle use. HEART: Regular rate and rhythm, S1, S2 without murmur, rub or gallop. ABDOMEN: Soft, nontender, nondistended, normoactive bowel sounds, no guarding, no rebound, no hepatosplenomegaly, no masses. EXTREMITIES: 2+ pulses, warm, well-perfused, no edema. NEUROLOGICAL: Cranial nerves II through XII grossly intact. Normal speech, gait not observed. PSYCH: Normal mood, normal affect. SKIN: Warm, dry, normal turgor, no rashes or lesions noted Laboratory Results - last 24 hr 09/09/19 09/13/19 09/14/19 12:26 11:00 05:55 WBC 9.0 RBC 4.12 Hgb 11.3 Hct 33.5 MCV 81.4 MCH 27.6 MCHC 33.9 RDW 14.8 Plt Count 550 H MPV 6.2 L Absolute Neuts (auto) 6.3 Neutrophils % 69.7 Neutrophils % (Manual) 66.0 Band Neutrophils % 0.0 Lymphocytes % 15.3 Lymphocytes % (Manual) 9.0 D Monocytes % 11.7 H Monocytes % (Manual) 9 D Eosinophils % 2.9 Eosinophils % (Manual) 0.0 D Basophils % 0.4 Basophils % (Manual) 1.0 D Myelocytes % (Man) 0 Promyelocytes % (Man) 0 Blast Cells % (Manual) 0 Nucleated RBC % 0 Metamyelocytes 0 Platelet Estimate Increased Sodium Potassium Chloride Carbon Dioxide Anion Gap BUN Creatinine Est GFR (CKD-EPI)AfAm Est GFR (CKD-EPI)NonAf Random Glucose Calcium Phosphorus Magnesium Blood Type A POSITIVE A POSITIVE Antibody Screen Negative Negative Crossmatch See Detail See Detail 09/14/19 05:55 WBC RBC Hgb Hct MCV MCH MCHC RDW Plt Count MPV Absolute Neuts (auto) Neutrophils % Neutrophils % (Manual) Band Neutrophils % Lymphocytes % Lymphocytes % (Manual) Monocytes % Monocytes % (Manual) Eosinophils % Eosinophils % (Manual) Basophils % Basophils % (Manual) Myelocytes % (Man) Promyelocytes % (Man) Blast Cells % (Manual) Nucleated RBC % Metamyelocytes Platelet Estimate Sodium 133 L Potassium 3.4 L Chloride 100 Carbon Dioxide 25 Anion Gap 8 BUN 20.4 H Creatinine 3.3 H Est GFR (CKD-EPI)AfAm 15.61 Est GFR (CKD-EPI)NonAf 13.47 Random Glucose 84 Calcium 8.4 L Phosphorus 4.4 Magnesium 2.4 Blood Type Antibody Screen Crossmatch Active Medications Generic Name Dose Route Start Last Admin Trade Name Freq PRN Reason Stop Dose Admin Benzocaine/Menthol 1 each 09/11/19 22:22 Cepacol Lozenge - MM PRN PRN SORE THROAT Chlorhexidine Gluconate 1 applic 09/11/19 22:00 09/13/19 21:06 Hibiclens For Decolonization - TP 1 applic HS [facility] Administration Fentanyl 25 mcg 09/11/19 22:22 Sublimaze Injection - IVPUSH [id number] PRN PAIN-PACU ORDER X 4 DOSES ONLY Hydromorphone HCl 10 mg 09/11/19 22:22 09/14/19 03:44 Hydromorphone 10 Mg/50 Ml-Ns RENAL DIETITIAN 09/16/19 17:06 Not Given RENAL DIETITIAN [facility] Protocol Piperacillin Sod/Tazobactam 50 mls @ 100 mls/hr 09/12/19 02:00 09/14/19 03:16 Sod 3.375 gm/ Dextrose IVPB 100 mls/hr Q8H-IV [facility] Administration Protocol Dextrose/Sodium Chloride 1,000 mls @ 100 mls/hr 09/13/19 23:45 09/14/19 00:00 D5-1/2ns - IV 100 mls/hr ASDIR [facility] Administration Methylnaltrexone [place] 12 mg 09/14/19 12:33 Relistor - SQ 09/14/19 12:34 ONCE ONE Mupirocin 1 applic 09/11/19 22:00 09/13/19 21:07 Bactroban Ointment (For Decolonization) - NS 09/16/19 21:59 1 applic BID [facility] Administration Ondansetron HCl 4 mg 09/11/19 22:22 Zofran Injection IVPUSH Q6H PRN NAUSEA AND/OR VOMITING Ondansetron HCl 4 mg 09/11/19 22:22 Zofran Injection IVPUSH Q6H PRN NAUSEA AND/OR VOMITING Pantoprazole Sodium 40 mg 09/12/19 10:00 09/13/19 10:19 Protonix Iv IVPUSH 40 mg DAILY [facility] Administration Assessment and Plan: Patient remains in the ICU with PCCM and ortho monitoring; ID consulted as well. PANCHO noted and nephro to see. Appreciate expert management with the ongoing care of this patient and hospitalist will continue to follow alongside. Problems include: -Postoperative wound infection (apparently going for forth debridement; will discuss with surgical services) -Hyponatremia -PANCHO (Nephrology consulted; prerenal vs. ATN [verify for intraoperative hypotension]. Avoid nephrotoxins, onitor elytes and Is and Os. PM BMP. NAOMI.) -Acute blood loss anemia (sgy requests h/h be kept >10/30) -Acute on chronic back pain -Morbid obesity -hypoalbuminemia -elevated alk phos -acute on chronic back pain s/p operative fixation Full Code Continue SCDs GI px if continued NPO Dispo pending final abx course and postoperative healing. Visit type - Emergency Visit Emergency Visit: Yes ED Registration Date: 09/09/19 Care time: The patient presented to the Emergency Department on the above date and was hospitalized for further evaluation of their emergent condition. - New Patient This patient is new to me today: No - Critical Care Critical Care patient: Yes Total Critical Care Time (in minutes): 30 Critical Care Statement: The care of this patient involved high complexity decision making to prevent further life threatening deterioration of the patient 's condition and/or to evaluate & treat vital organ system(s) failure or risk of failure.
[2019-09-14] MEDS ORDERED: ONDANSETRON 4 MG/2 ML VIAL ONE (09:42)
[2019-09-14] MEDS ORDERED: DEXAMETHASONE SOD PHOSPHATE 4 MG/1 ML VIAL ONE (09:42)
[2019-09-14] MEDS ORDERED: KETOROLAC TROMETHAMINE 30 MG/1 ML VIAL ONE (09:42)
[2019-09-14] MEDS ORDERED: NEOSTIGMINE METHYLSULFATE 0.5 MG/1 ML - 10 ML MDV ONE (09:44)
[2019-09-14] MEDS ORDERED: GLYCOPYRROLATE 0.2 MG/1 ML VIAL ONE ×2 (09:44)
--- NOTE | 2019-09-14 10:15 | PN ---
Progress Note (short form) - Note Progress Note: 68F s/p L1-S1 posterior decompression & T11-S1 instrumented fusion (08/26/2019) p/w 400cc epidural abscess (09/09/2019) now s/p I&D posterior thoracolumbar spine w/repeat application wound vac POD #1. -Once again, copious stool and flatus excreted immediately after intubation and after prone positioning. Intra-Op Findings: -Wound Dimensions: -Length: 30cm. -Width: 10cm. -Depth: 10cm. -Healthy, bleeding granulation tissue overlying erector spinae muscles and dura. -Fibrinous slough overlying bone and wound margins. -No purulence. No malodor. Minimal necrosis. -3 x culture sticks sent to lab (deep swab). -All metal hardware, bone, and soft tissue scrubbed/mechanically debrided extensively with sponges and diluted betadine soap. -6L NS irrigation. -Wounds approximated w/4 x #1 PDS suture (Lautenbach suture technique). -Application wound vac. Plan: -Strict NPO, IVF d/t abdominal distention. -Again, requesting placement of rectal tube to decompress GI tract. -Plan to return to OR Monday09/16/2019 for T/L spine I&D w/wound vac exchange VS delayed primary closure. -Transfuse 1U PRBC today in preparation for OR Monday. -Offload heals with rolled towels under ankles to avoid heel ulcers/pressure sores. -Log roll q2h/place on wedge pillows to avoid sacral decubitus ulcer formation. -Pain medication: per anaesthesia team; ENERGY PROJECTS LEAD if needed; NO NSAID's. -Maintain woundvac @ 125mmHg negative pressure therapy. -f/u OR culture stick specimens x 3 & microbiology wound culture speciation. -IV antibiotics as per ID team; d/c Vancomycin due to rising Creatinine levels. -f/u daily labs. -DVT PPx: -Mechanical only: VLADISLAV's, SCD's. -Incentive spirometry. -PT/OT/Rehab, OOB. -WBAT B/L LE. -Perineal hygiene. -B/L UE & LE NV checks. -No heavy lifting (>5 lbs), bending or twisting x 6 months post op. -Care per ICU, ID, & medical hospitalist teams. -Discharge planning: plan to repeat I&D with exchange of wound vac dressing Monday09/16/2019; NPO w/IVF at midnight tomorrow night. -Will follow. Eliezer Villa MD (Orthopaedic Surgery).
[2019-09-14 10:18] LABS: N-TERMINAL BNP 868.6 pg/ml (5-125)
--- NOTE | 2019-09-14 10:18 | OP ---
Operative Note - Note: Operative Date: 09/14/19 Pre-Operative Diagnosis: Deep thoracolumbar spine wound infection. Operation: 1. Irrigation, drainage, and debridement thoracolumbar spine. 2. Exchange & application of wound vac Findings: -Wound Dimensions: -Length: 30cm. -Width: 10cm. -Depth: 10cm. -Healthy, bleeding granulation tissue overlying erector spinae muscles and dura. -Fibrinous slough overlying bone and wound margins. -No purulence. No malodor. Minimal necrosis. Post-Operative Diagnosis: Same as Pre-op Surgeon: Eliezer Villa Skidder Runner: Elder Villa Anesthesiologist/POLLUTION CONTROL CHEMIST: Scooter Alexis Anesthesia: General Specimens Removed: 3 x culture sticks Estimated Blood Loss (mls): 10 Drains & Tubes with Location: 1 x WoundVac Fluid Volume Replaced (mls): 400 (Crystalloid) Operative Report Dictated: Yes
[2019-09-14] MEDS: PANTOPRAZOLE SODIUM 40 MG VIAL IVPUSH SCH (10:51)
[2019-09-14] MEDS: MUPIROCIN 2% TOPICAL OINTMENT FOR DECOLONIZATION NS SCH ×2 (10:52→21:23)
[2019-09-14] MEDS: KCL 10 MEQ IVPB 10 MEQ/100 ML INFUS.BAG IVPB SCH ×2 (10:57→12:08)
[2019-09-14 11:53] LABS: ALBUMIN 1.9 g/dl (3.4-5.0); BILIRUBIN,TOTAL 0.5 mg/dL (0.2-1); BLOOD UREA NITROGEN 20.6 mg/dL (7-18); CALCIUM 8.2 mg/dL (8.5-10.1); CREATININE 3.5 mg/dL (0.55-1.3); POTASSIUM 3.2 mmol/L (3.5-5.1)
--- NOTE | 2019-09-14 12:00 | CONSULT ---
Consult - text type - Consultation Consultation Note: Renal consult for PANCHO coverage for Dr. Loo This is a 68 year old woman with history of recent spinal decompression presented from rehab with back pain and found to have wound infection with spine wound infection now with PANCHO. Pt seen and examined at the bedside in the ICU. s/p irrigation and drainage in the OR this morning. She is awake and alert , offers no acute complaints. Denies any sob, cp, abd pain, fever or chills. Making urine via tapia. No fever or chills. No skin rash. No flank pain. PMhx: as above Allergies: NKDA Family Hx: NC Social Hx: No T/A/D ROS: as per HPI, all other pertinent ros negative Home Medications Medication Instructions Recorded Baclofen 10 mg PO BID 09/09/19 Bisacodyl [Dulcolax] 10 mg RC DAILY PRN 09/09/19 Docusate Sodium [Colace] 100 mg PO DAILY 09/09/19 Mag Hydrox/Al Hydrox/Simeth 30 ml PO Q8H 09/09/19 [Mylanta Oral Suspension -] Pantoprazole Sodium [Protonix] 40 mg PO DAILY 09/09/19 Polyethylene Glycol 3350 [Miralax 17 gm PO DAILY 09/09/19 (For Daily Use) -] Sennosides [Senna] 2 tab PO HS 09/09/19 Vital Signs Temperature 98.0 F 09/14/19 11:19 Pulse Rate 69 09/14/19 11:19 Respiratory Rate 14 09/14/19 11:19 Blood Pressure 125/60 09/14/19 11:19 O2 Sat by Pulse Oximetry (%) 94 L 09/14/19 11:20 Intake & Output 09/11/19 09/12/19 09/13/19 09/14/19 23:59 23:59 23:59 23:59 Intake Total 2975 2725 2075 1750 Output Total 1355 650 550 320 Balance 1620 2075 1525 1430 Weight 103.419 kg 104.689 kg 104.9 kg 104.734 kg NAD awake and alert neck supple no JVD RRR CTA soft NT/ND no LE edema, clubbing or cyanosis no bladder distension, tapia in place CBC, BMP 09/14/19 05:55 09/14/19 11:05 Laboratory Tests 09/14/19 11:05 Calcium 8.2 L Albumin 1.9 L Laboratory Tests 09/09/19 14:53 Urine Protein Trace Urine Ketones 1+ H Urine Blood Negative Laboratory Tests 09/12/19 05:44 Vancomycin Pre-Dose 16.1 L Current Medications Benzocaine/Menthol (Cepacol Lozenge -) 1 each MM PRN PRN PRN Reason: SORE THROAT Chlorhexidine Gluconate (Hibiclens For Decolonization -) 1 applic TP HS [facility] Last Admin: 09/13/19 21:06 Dose: 1 applic Fentanyl (Sublimaze Injection -) 25 mcg IVPUSH [id number] PRN PRN Reason: PAIN-PACU ORDER X 4 DOSES ONLY Hydromorphone HCl (Hydromorphone 10 Mg/50 Ml-Ns) 10 mg BINDERY LIBRARY TECHNICAL ASSISTANT BINDERY LIBRARY TECHNICAL ASSISTANT [facility]; Protocol Piperacillin Sod/Tazobactam (Sod 3.375 gm/ Dextrose) 50 mls @ 100 mls/hr IVPB Q8H-IV [facility]; Protocol Last Admin: 09/14/19 10:51 Dose: 100 mls/hr Dextrose/Sodium Chloride (D5-1/2ns -) 1,000 mls @ 100 mls/hr IV ASDIR [facility] Last Admin: 09/14/19 00:00 Dose: 100 mls/hr Potassium Chloride (Potassium Chloride 10 Meq Premix Ivpb -) 10 meq in 100 mls @ 100 mls/hr IVPB Q60M [facility] Stop: 09/14/19 12:14 Last Admin: 09/14/19 10:57 Dose: 100 mls/hr Methylnaltrexone [place] (Relistor -) 12 mg SQ ONCE ONE Stop: 09/14/19 12:34 Mupirocin (Bactroban Ointment (For Decolonization) -) 1 applic NS BID [facility] Stop: 09/16/19 21:59 Last Admin: 09/14/19 10:52 Dose: 1 applic Ondansetron HCl (Zofran Injection) 4 mg IVPUSH Q6H PRN PRN Reason: NAUSEA AND/OR VOMITING Ondansetron HCl (Zofran Injection) 4 mg IVPUSH Q6H PRN PRN Reason: NAUSEA AND/OR VOMITING Pantoprazole Sodium (Protonix Iv) 40 mg IVPUSH DAILY [facility] Last Admin: 09/14/19 10:51 Dose: 40 mg 68 year old woman with history of recent spinal decompression presented from rehab with back pain and found to have wound infection with spine wound infection now with PANCHO. 1. Acute kidney injury, differential PANCHO/Volume depletion in setting of infection/abcess vs. AIN from Abx vs. hemodynamic injury from relative hypotension 2. Spine wound infection 3. Hyponatremia in setting of decreased renal function 4. Mild hypokalemia Check urine studies for FeNa, UPCR, Urine Eosinophils Give challenge with isotonic saline Will change zosyn dose to 2.25g Q8h given renal injury if renal function not improved would consider trial off of PCN abx Not currently getting Vancomycin Avoid nephrotoxins and IV contrast Neurosurgery follow up No acute indication for dialysis at this time Thank you Henri Mckeon DO
--- NOTE | 2019-09-14 12:07 | PN ---
Progress Note, Physician History of Present Illness: stable no new issues - Current Medication List Current Medications: Active Medications Benzocaine/Menthol (Cepacol Lozenge -) 1 each MM PRN PRN PRN Reason: SORE THROAT Chlorhexidine Gluconate (Hibiclens For Decolonization -) 1 applic TP HS [facility] Last Admin: 09/13/19 21:06 Dose: 1 applic Fentanyl (Sublimaze Injection -) 25 mcg IVPUSH [id number] PRN PRN Reason: PAIN-PACU ORDER X 4 DOSES ONLY Hydromorphone HCl (Hydromorphone 10 Mg/50 Ml-Ns) 10 mg IRRIGATION TECHNICIAN IRRIGATION TECHNICIAN [facility]; Protocol Piperacillin Sod/Tazobactam (Sod 3.375 gm/ Dextrose) 50 mls @ 100 mls/hr IVPB Q8H-IV [facility]; Protocol Last Admin: 09/14/19 10:51 Dose: 100 mls/hr Dextrose/Sodium Chloride (D5-1/2ns -) 1,000 mls @ 100 mls/hr IV ASDIR [facility] Last Admin: 09/14/19 00:00 Dose: 100 mls/hr Potassium Chloride (Potassium Chloride 10 Meq Premix Ivpb -) 10 meq in 100 mls @ 100 mls/hr IVPB Q60M [facility] Stop: 09/14/19 12:14 Last Admin: 09/14/19 10:57 Dose: 100 mls/hr Methylnaltrexone [place] (Relistor -) 12 mg SQ ONCE ONE Stop: 09/14/19 12:34 Mupirocin (Bactroban Ointment (For Decolonization) -) 1 applic NS BID [facility] Stop: 09/16/19 21:59 Last Admin: 09/14/19 10:52 Dose: 1 applic Ondansetron HCl (Zofran Injection) 4 mg IVPUSH Q6H PRN PRN Reason: NAUSEA AND/OR VOMITING Ondansetron HCl (Zofran Injection) 4 mg IVPUSH Q6H PRN PRN Reason: NAUSEA AND/OR VOMITING Pantoprazole Sodium (Protonix Iv) 40 mg IVPUSH DAILY [facility] Last Admin: 09/14/19 10:51 Dose: 40 mg - Objective Vital Signs: Vital Signs Temperature 98.0 F 09/14/19 11:19 Pulse Rate 69 09/14/19 11:19 Respiratory Rate 14 09/14/19 11:19 Blood Pressure 125/60 09/14/19 11:19 O2 Sat by Pulse Oximetry (%) 94 L 09/14/19 11:20 Constitutional: Yes: No Distress, Calm Cardiovascular: Yes: S1, S2 Genitourinary: Yes: Other Musculoskeletal: Yes: Back Pain Extremities: Yes: WNL Neurological: Yes: Alert, Oriented Psychiatric: Yes: Alert, Oriented Labs: CBC, BMP 09/14/19 05:55 09/14/19 11:05 INR, PTT INR 1.69 (0.83-1.09) H 09/13/19 05:45 Assessment/Plan Thoracolumbar spine wound infection/Abscess s/p I&D Anemia plan await for cx report await for identification of the organism wound care rest as per the team
[2019-09-14] MEDS ORDERED: Methylnaltrexone Bromide 12 MG/0.6 ML KIT SQ ONE (12:33)
[2019-09-14] MEDS: SODIUM CHLORIDE 1,000 ML IV SCH ×2 (12:42→18:00)
[2019-09-14 12:55] LABS: PREALBUMIN 8.7 mg/dl (20-40)
[2019-09-14 14:54] LABS: EPI CELLS 2.5 /HPF (0-5/HPF); HYALINE CASTS 4 /lpf (0-8); URINE APPEARANCE CLEAR; URINE BACTERIA 1.4 /hpf (NEGATIVE); URINE BILIRUBIN NEGATIVE (NEGATIVE); URINE COLOR YELLOW; URINE GLUCOSE (UA) NEGATIVE (NEGATIVE); URINE KETONE NEGATIVE (NEGATIVE); URINE LEUK ESTERASE TRACE (NEGATIVE); URINE NITRITE NEGATIVE (NEGATIVE); URINE PROTEIN TRACE (NEGATIVE); URINE UROBILINOGEN 0.2 mg/dL (0.2-1.0); URINE WBC 5 /hpf (0-5)
[2019-09-14 15:17] LABS: URINE RBC 0-4 /hpf (0-4); YEAST NEGATIVE (NEGATIVE)
[2019-09-14] MEDS: PIPERACILLIN/TAZOB 2.25 GM 2.25 GM in DEXTROSE 5%-WATER - 50 ML IVPB SCH (17:47)
[2019-09-14] MEDS ORDERED: PIPERACILLIN/TAZOBACTAM 2.25 GM VIAL IVPB ONE (17:50)
--- NOTE | 2019-09-14 20:26 | PN ---
Progress Note (short form) - Note Progress Note: PULM/CCM SUBJECTIVE: Pt seen and examined in the ICU. 24Hr: -went for another washout -worsening renal failure of multifactorial etiology, renal consulted - decreasing UOP -stable hemodyanmics OBJECTIVE: Vital Signs Temp 98.5 F 09/14/19 18:23 Pulse 89 09/14/19 20:00 Resp 17 09/14/19 20:00 BP 125/54 L 09/14/19 20:00 Pulse Ox 97 09/14/19 16:00 Intake & Output 09/13/19 09/14/19 09/14/19 23:59 11:59 23:59 Intake Total 2075 1750 1460 Output Total 550 320 200 Balance 1525 1430 1260 Weight 104.734 kg Intake: IV 1125 1700 800 D5-1/2Ns - 1,000 ml @ 100 800 100 mls/hr IV ASDIR [facility] Rx#: [id number] Lactated Ringers Solution 1125 500 1,000 ml @ 125 mls/hr IV ASDIR [facility] Rx#: [id number] Normal Saline - 1,000 ml 700 @ 125 mls/hr IV ASDIR [facility] Rx#:[id number] IVPB 600 50 300 Oral 360 Packed Cells 350 Output: Urine 550 310 200 [place] 550 300 200 Estimated Blood Loss 10 Other: Voiding Method Indwelling Catheter Indwelling Catheter Indwelling Catheter Bowel Movement Yes: large amt liquid brown stool # Bowel Movements 1 Gen: NAD at rest Heart: RRR Lung: decreased breath sounds at the bases Abd: soft, nontender, + BS Thor/lumbar: dressing CDI, going to OR for washout. not reinspected Ext: no edema CBC, BMP 09/14/19 05:55 09/14/19 11:05 Current Medications Benzocaine/Menthol (Cepacol Lozenge -) 1 each MM PRN PRN PRN Reason: SORE THROAT Chlorhexidine Gluconate (Hibiclens For Decolonization -) 1 applic TP HS [facility] Last Admin: 09/13/19 21:06 Dose: 1 applic Fentanyl (Sublimaze Injection -) 25 mcg IVPUSH [id number] PRN PRN Reason: PAIN-PACU ORDER X 4 DOSES ONLY Hydromorphone HCl (Hydromorphone 10 Mg/50 Ml-Ns) 10 mg SUPERVISOR SPECIAL EDUCATION SUPERVISOR SPECIAL EDUCATION [facility]; Protocol Last Admin: 09/14/19 14:05 Dose: 10 mg Sodium Chloride (Normal Saline -) 1,000 mls @ 125 mls/hr IV ASDIR [facility] Last Admin: 09/14/19 18:00 Dose: 125 mls/hr Piperacillin Sod/Tazobactam (Sod 2.25 gm/ Dextrose) 50 mls @ 100 mls/hr IVPB Q8H-IV [facility]; Protocol Last Admin: 09/14/19 17:47 Dose: 100 mls/hr Mupirocin (Bactroban Ointment (For Decolonization) -) 1 applic NS BID [facility] Stop: 09/16/19 21:59 Last Admin: 09/14/19 10:52 Dose: 1 applic Ondansetron HCl (Zofran Injection) 4 mg IVPUSH Q6H PRN PRN Reason: NAUSEA AND/OR VOMITING Ondansetron HCl (Zofran Injection) 4 mg IVPUSH Q6H PRN PRN Reason: NAUSEA AND/OR VOMITING Pantoprazole Sodium (Protonix Iv) 40 mg IVPUSH DAILY [facility] Last Admin: 09/14/19 10:51 Dose: 40 mg ASSESSMENT AND PLAN: Thoracolumbar spine wound infection/Abscess s/p I&D Anemia - went for washout and wound vac change in OR today, uneventful apparently - continue antibiotics per ID - renal following, no acute need for renal replacement, will follow lytes and BUN/Cr, and UOP - f/u cultures - pain control - incentive spirometry - DVT prophylaxis - disposition and primary management per surgery [place] ACNP [phone]
[2019-09-14 21:21] LABS: BLOOD UREA NITROGEN 21.9 mg/dL (7-18); CALCIUM 8.4 mg/dL (8.5-10.1); CREATININE 3.7 mg/dL (0.55-1.3); POTASSIUM 3.7 mmol/L (3.5-5.1)
[2019-09-14] MEDS: CHLORHEXIDINE GLUCONATE 4% CLEANSER FOR DECOLONIZATION TP SCH (21:23)
[2019-09-15] MEDS ORDERED: DEXTROSE 5%-WATER - 50 ML IVPB ONE ×3 (01:28→15:12)
[2019-09-15] MEDS ORDERED: PIPERACILLIN/TAZOBACTAM 2.25 GM VIAL IVPB ONE ×3 (01:28→15:12)
[2019-09-15] MEDS: PIPERACILLIN/TAZOB 2.25 GM 2.25 GM in DEXTROSE 5%-WATER - 50 ML IVPB SCH ×3 (01:32→17:03)
[2019-09-15 07:17] LABS: BASO % 0.4 % (0-2.0); EOS % 0.8 % (0-4.5); HEMATOCRIT 33.4 % (32.4-45.2); HEMOGLOBIN 11.2 GM/dL (10.7-15.3); LYMPH % 15.3 % (8-40); MCH 27.4 pg (25.7-33.7); MCHC 33.5 g/dl (32.0-36.0); MEAN CELL VOLUME 81.7 fl (80-96); MEAN PLT VOLUME 6.6 fl (7.5-11.1); MONO % 10.5 % (3.8-10.2); PLATELET COUNT 568 K/MM3 (134-434); RBC 4.08 M/mm3 (3.60-5.2); RDW 14.9 % (11.6-15.6); WHITE BLOOD COUNT 8.5 K/mm3 (4.0-10.0)
[2019-09-15 07:36] LABS: ALBUMIN 1.8 g/dl (3.4-5.0); BILIRUBIN,TOTAL 0.4 mg/dL (0.2-1); BLOOD UREA NITROGEN 24.5 mg/dL (7-18); CALCIUM 8.3 mg/dL (8.5-10.1); CREATININE 3.7 mg/dL (0.55-1.3); MAGNESIUM 2.3 mg/dL (1.8-2.4); PHOSPHOROUS 5.3 mg/dL (2.5-4.9); POTASSIUM 3.7 mmol/L (3.5-5.1); TOT PROT 4.6 g/dl (6.4-8.2)
--- NOTE | 2019-09-15 09:03 | PN ---
Physical Exam: SUBJECTIVE: Patient seen and examined. Had occasion to review intraop flowsheets and no noted hypotension intraoperatively. Stable. No new complaints. Discussed case with her at length last evening. Ultrasound shows a nonobstructing right-sided calculus, ultrasound of the abdomen shows fatty infiltration of enlarged liver, cholelithiasis, nonobstructing right renal calculus and right renal cyst. The patient does have an enlarged liver with a mildly dilated common bile duct of 0.7 cm. LFTs normalized. 10 sys ROS done and negative aside from HPI OBJECTIVE: Vital Signs Period Temp Pulse Resp BP Sys/No Pulse Ox Last 24 Hr 97.6 F-98.5 F 67-89 12-20 105-145/53-94 9-99 GENERAL: The patient is awake, alert, and fully oriented, in no acute distress. HEAD: Normal with no signs of trauma. EYES: PERRL, extraocular movements intact, sclera anicteric, conjunctiva clear. No ptosis. ENT: Ears normal, nares patent, oropharynx clear without exudates, moist mucous membranes. NECK: Trachea midline, full range of motion, supple. LUNGS: Breath sounds equal, clear to auscultation bilaterally, no wheezes, no crackles, no accessory muscle use. HEART: Regular rate and rhythm, S1, S2 without murmur, rub or gallop. ABDOMEN: Soft, nontender, nondistended, normoactive bowel sounds EXTREMITIES: 2+ pulses, warm, well-perfused, no edema. Moves all 4 with normal strength. NEUROLOGICAL: Cranial nerves II through XII grossly intact. Normal speech, gait not observed. PSYCH: Normal mood, normal affect. SKIN: Warm, dry, normal turgor, no rashes or lesions noted. Post op wound dressings are c/d/i and wound vac is attached. Laboratory Results - last 24 hr 09/14/19 09/14/19 09/14/19 05:55 05:55 11:05 WBC RBC Hgb Hct MCV MCH MCHC RDW Plt Count MPV Absolute Neuts (auto) Neutrophils % Neutrophils % (Manual) 66.0 Band Neutrophils % 0.0 Lymphocytes % Lymphocytes % (Manual) 9.0 D Monocytes % Monocytes % (Manual) 9 D Eosinophils % Eosinophils % (Manual) 0.0 D Basophils % Basophils % (Manual) 1.0 D Myelocytes % (Man) 0 Promyelocytes % (Man) 0 Blast Cells % (Manual) 0 Nucleated RBC % Metamyelocytes 0 Platelet Estimate Increased Sodium 133 L Potassium 3.4 L Chloride 100 Carbon Dioxide 25 Anion Gap 8 BUN 20.4 H Creatinine 3.3 H Est GFR (CKD-EPI)AfAm 15.61 Est GFR (CKD-EPI)NonAf 13.47 Random Glucose 84 Serum Osmolality Calcium 8.4 L Phosphorus 4.4 Magnesium 2.4 Total Bilirubin GGT 71 AST ALT Alkaline Phosphatase B-Natriuretic Peptide 868.6 H Total Protein Albumin Prealbumin 8.7 L Urine Color Urine Appearance Urine pH Ur Specific [place] Urine Protein Urine Glucose (UA) Urine Ketones Urine Blood Urine Nitrite Urine Bilirubin Urine Urobilinogen Ur Leukocyte Esterase Urine WBC (Auto) Urine RBC (Auto) Urine Casts (Auto) U Epithel Cells (Auto) Urine Bacteria (Auto) Urine Yeast (Auto) Urine Osmolality Ur Random Creatinine U Random Total Protein Ur Random Sodium Urine Creatinine Protein/Creatinin Ratio 09/14/19 09/14/19 09/14/19 11:05 12:00 12:00 WBC RBC Hgb Hct MCV MCH MCHC RDW Plt Count MPV Absolute Neuts (auto) Neutrophils % Neutrophils % (Manual) Band Neutrophils % Lymphocytes % Lymphocytes % (Manual) Monocytes % Monocytes % (Manual) Eosinophils % Eosinophils % (Manual) Basophils % Basophils % (Manual) Myelocytes % (Man) Promyelocytes % (Man) Blast Cells % (Manual) Nucleated RBC % Metamyelocytes Platelet Estimate Sodium 133 L Potassium 3.2 L Chloride 100 Carbon Dioxide 25 Anion Gap 8 BUN 20.6 H Creatinine 3.5 H Est GFR (CKD-EPI)AfAm 14.54 Est GFR (CKD-EPI)NonAf 12.54 Random Glucose 98 Serum Osmolality 278 Calcium 8.2 L Phosphorus Magnesium Total Bilirubin 0.5 GGT AST 23 ALT 30 Alkaline Phosphatase 117 B-Natriuretic Peptide Total Protein 5.0 L Albumin 1.9 L Prealbumin Urine Color Urine Appearance Urine pH Ur Specific [place] Urine Protein Urine Glucose (UA) Urine Ketones Urine Blood Urine Nitrite Urine Bilirubin Urine Urobilinogen Ur Leukocyte Esterase Urine WBC (Auto) Urine RBC (Auto) Urine Casts (Auto) U Epithel Cells (Auto) Urine Bacteria (Auto) Urine Yeast (Auto) Urine Osmolality 211 L Ur Random Creatinine U Random Total Protein Ur Random Sodium 18 L Urine Creatinine Protein/Creatinin Ratio 09/14/19 09/14/19 09/14/19 14:10 14:10 14:10 WBC RBC Hgb Hct MCV MCH MCHC RDW Plt Count MPV Absolute Neuts (auto) Neutrophils % Neutrophils % (Manual) Band Neutrophils % Lymphocytes % Lymphocytes % (Manual) Monocytes % Monocytes % (Manual) Eosinophils % Eosinophils % (Manual) Basophils % Basophils % (Manual) Myelocytes % (Man) Promyelocytes % (Man) Blast Cells % (Manual) Nucleated RBC % Metamyelocytes Platelet Estimate Sodium Potassium Chloride Carbon Dioxide Anion Gap BUN Creatinine Est GFR (CKD-EPI)AfAm Est GFR (CKD-EPI)NonAf Random Glucose Serum Osmolality Calcium Phosphorus Magnesium Total Bilirubin GGT AST ALT Alkaline Phosphatase B-Natriuretic Peptide Total Protein Albumin Prealbumin Urine Color Urine Appearance Urine pH Ur Specific [place] Urine Protein Urine Glucose (UA) Urine Ketones Urine Blood Urine Nitrite Urine Bilirubin Urine Urobilinogen Ur Leukocyte Esterase Urine WBC (Auto) Urine RBC (Auto) Urine Casts (Auto) U Epithel Cells (Auto) Urine Bacteria (Auto) Urine Yeast (Auto) Urine Osmolality Ur Random Creatinine Cancelled U Random Total Protein 33.1 H Ur Random Sodium 12 L Urine Creatinine 68.0 Protein/Creatinin Ratio 0.5 09/14/19 09/14/19 09/15/19 14:10 20:38 05:40 WBC 8.5 RBC 4.08 Hgb 11.2 Hct 33.4 MCV 81.7 MCH 27.4 MCHC 33.5 RDW 14.9 Plt Count 568 H MPV 6.6 L Absolute Neuts (auto) 6.2 Neutrophils % 73.0 Neutrophils % (Manual) Band Neutrophils % Lymphocytes % 15.3 Lymphocytes % (Manual) Monocytes % 10.5 H Monocytes % (Manual) Eosinophils % 0.8 Eosinophils % (Manual) Basophils % 0.4 Basophils % (Manual) Myelocytes % (Man) Promyelocytes % (Man) Blast Cells % (Manual) Nucleated RBC % 0 Metamyelocytes Platelet Estimate Sodium 135 L Potassium 3.7 Chloride 100 Carbon Dioxide 23 Anion Gap 12 BUN 21.9 H Creatinine 3.7 H Est GFR (CKD-EPI)AfAm 13.59 Est GFR (CKD-EPI)NonAf 11.73 Random Glucose 122 H Serum Osmolality Calcium 8.4 L Phosphorus Magnesium Total Bilirubin GGT AST ALT Alkaline Phosphatase B-Natriuretic Peptide Total Protein Albumin Prealbumin Urine Color Yellow Urine Appearance Clear Urine pH 5.0 D Ur Specific [place] 1.011 Urine Protein Trace Urine Glucose (UA) Negative Urine Ketones Negative Urine Blood 2+ H Urine Nitrite Negative Urine Bilirubin Negative Urine Urobilinogen 0.2 Ur Leukocyte Esterase Trace Urine WBC (Auto) 5 Urine RBC (Auto) 0-4 Urine Casts (Auto) 4 U Epithel Cells (Auto) 2.5 Urine Bacteria (Auto) 1.4 Urine Yeast (Auto) Negative Urine Osmolality Ur Random Creatinine U Random Total Protein Ur Random Sodium Urine Creatinine Protein/Creatinin Ratio 09/15/19 05:40 WBC RBC Hgb Hct MCV MCH MCHC RDW Plt Count MPV Absolute Neuts (auto) Neutrophils % Neutrophils % (Manual) Band Neutrophils % Lymphocytes % Lymphocytes % (Manual) Monocytes % Monocytes % (Manual) Eosinophils % Eosinophils % (Manual) Basophils % Basophils % (Manual) Myelocytes % (Man) Promyelocytes % (Man) Blast Cells % (Manual) Nucleated RBC % Metamyelocytes Platelet Estimate Sodium 134 L Potassium 3.7 Chloride 102 Carbon Dioxide 23 Anion Gap 9 BUN 24.5 H Creatinine 3.7 H Est GFR (CKD-EPI)AfAm 13.59 Est GFR (CKD-EPI)NonAf 11.73 Random Glucose 86 Serum Osmolality Calcium 8.3 L Phosphorus 5.3 H Magnesium 2.3 Total Bilirubin 0.4 GGT AST 17 ALT 26 Alkaline Phosphatase 105 B-Natriuretic Peptide Total Protein 4.6 L Albumin 1.8 L Prealbumin Urine Color Urine Appearance Urine pH Ur Specific [place] Urine Protein Urine Glucose (UA) Urine Ketones Urine Blood Urine Nitrite Urine Bilirubin Urine Urobilinogen Ur Leukocyte Esterase Urine WBC (Auto) Urine RBC (Auto) Urine Casts (Auto) U Epithel Cells (Auto) Urine Bacteria (Auto) Urine Yeast (Auto) Urine Osmolality Ur Random Creatinine U Random Total Protein Ur Random Sodium Urine Creatinine Protein/Creatinin Ratio Active Medications Generic Name Dose Route Start Last Admin Trade Name Freq PRN Reason Stop Dose Admin Benzocaine/Menthol 1 each 09/11/19 22:22 Cepacol Lozenge - MM PRN PRN SORE THROAT Chlorhexidine Gluconate 1 applic 09/11/19 22:00 09/14/19 21:23 Hibiclens For Decolonization - TP Not Given HS FARAZ Fentanyl 25 mcg 09/11/19 22:22 Sublimaze Injection - IVPUSH [id number] PRN PAIN-PACU ORDER X 4 DOSES ONLY Hydromorphone HCl 10 mg 09/14/19 11:45 09/14/19 14:05 Hydromorphone 10 Mg/50 Ml-Ns TREASURER 10 mg TREASURER FARAZ Administration Protocol Sodium Chloride 1,000 mls @ 125 mls/hr 09/14/19 12:30 09/14/19 18:00 Normal Saline - IV 125 mls/hr ASDIR [facility] Administration Piperacillin Sod/Tazobactam 50 mls @ 100 mls/hr 09/14/19 18:00 09/15/19 01:32 Sod 2.25 gm/ Dextrose IVPB 100 mls/hr Q8H-IV [facility] Administration Protocol Mupirocin 1 applic 09/11/19 22:00 09/14/19 21:23 Bactroban Ointment (For Decolonization) - NS 09/16/19 21:59 1 applic BID [facility] Administration Ondansetron HCl 4 mg 09/11/19 22:22 Zofran Injection IVPUSH Q6H PRN NAUSEA AND/OR VOMITING Ondansetron HCl 4 mg 09/11/19 22:22 Zofran Injection IVPUSH Q6H PRN NAUSEA AND/OR VOMITING Pantoprazole Sodium 40 mg 09/12/19 10:00 09/14/19 10:51 Protonix Iv IVPUSH 40 mg DAILY [facility] Administration Microbiology 09/09/19 16:30 Back Gram Stain - Final 09/09/19 16:30 Back Wound Culture - Preliminary Escherichia Coli Bacteroides Fragilis Pending Organism#2 09/14/19 10:27 Back Gram Stain - Final 09/14/19 10:27 Back Wound Culture - Preliminary NO GROWTH OBTAINED AFTER 24 HOURS INCUBATION, REINCUBATED. 09/14/19 10:24 Back Gram Stain - Final 09/14/19 10:24 Back Wound Culture - Preliminary NO GROWTH OBTAINED AFTER 24 HOURS INCUBATION, REINCUBATED. 09/14/19 10:26 Back Gram Stain - Final 09/14/19 10:26 Back Wound Culture - Preliminary NO GROWTH OBTAINED AFTER 24 HOURS INCUBATION, REINCUBATED. 09/12/19 15:20 Blood - Peripheral Venous Blood Culture - Preliminary NO GROWTH OBTAINED AFTER 48 HOURS, INCUBATION TO CONTINUE FOR 3 DAYS. 09/12/19 15:28 Blood - Peripheral Venous Blood Culture - Preliminary NO GROWTH OBTAINED AFTER 48 HOURS, INCUBATION TO CONTINUE FOR 3 DAYS. 09/09/19 14:53 Urine - Urine - Catheterized Urine Culture - Final NO GROWTH OBTAINED ASSESSMENT/PLAN: Patient remains in the ICU with PCCM and ortho monitoring; ID consulted as well. PANCHO noted and nephro to see. Appreciate expert management with the ongoing care of this patient and hospitalist will continue to follow alongside. Had washout yesterday (repeat) and will be going for another on monday. Moving bowels and passing flatus. Informed no rectal tube in hospital. Nephro following. Discussed with nephro and ICU. Problems include: -Postoperative wound infection (apparently going for fifth debridement; will discuss with surgical services) -Hyponatremia (stable) -PANCHO (Nephrology consulted; prerenal vs. ATN [verify for intraoperative hypotension]. Avoid nephrotoxins, onitor elytes and Is and Os. PM BMP. NAOMI.) -Acute blood loss anemia (sgy requests h/h be kept >10/30) -Acute on chronic back pain -Morbid obesity -hypoalbuminemia -elevated alk phos; normalized but with mild dilation of CBD on US. Non-urgent MRCP prior to DC. Not havign abdominal pain. -acute on chronic back pain s/p operative fixation -Nonobstructing R-renal calculus Full Code Continue SCDs GI px if continued NPO Dispo pending final abx course and postoperative healing. Visit type - Emergency Visit Emergency Visit: Yes ED Registration Date: 09/09/19 Care time: The patient presented to the Emergency Department on the above date and was hospitalized for further evaluation of their emergent condition. - New Patient This patient is new to me today: No - Critical Care Critical Care patient: No
[2019-09-15] MEDS: PANTOPRAZOLE SODIUM 40 MG VIAL IVPUSH SCH (09:04)
--- NOTE | 2019-09-15 09:29 | PN ---
Progress Note (short form) - Note Progress Note: Renal follow up for PANCHO Seen and examined in the ICU awake and alert complains of pain having diarrhea no sob, chest pain, fever or chills making urine via tapia Vital Signs Temperature 97.9 F 09/15/19 08:30 Pulse Rate 70 09/15/19 08:30 Respiratory Rate 17 09/15/19 08:30 Blood Pressure 131/58 L 09/15/19 08:30 O2 Sat by Pulse Oximetry (%) 97 09/15/19 08:29 Intake & Output 09/12/19 09/13/19 09/14/19 09/15/19 23:59 23:59 23:59 23:59 Intake Total 2725 2075 3210 1700 Output Total 650 550 620 500 Balance 2075 1525 2590 1200 Weight 104.689 kg 104.9 kg 104.734 kg 104.871 kg NAD no JVD RRR CTA soft, slight distension no LE edema, clubbing or cyanosis no bladder distension, tapia in place CBC, BMP 09/15/19 05:40 09/15/19 05:40 Current Medications Benzocaine/Menthol (Cepacol Lozenge -) 1 each MM PRN PRN PRN Reason: SORE THROAT Chlorhexidine Gluconate (Hibiclens For Decolonization -) 1 applic TP HS FARAZ Last Admin: 09/14/19 21:23 Dose: Not Given Fentanyl (Sublimaze Injection -) 25 mcg IVPUSH [id number] PRN PRN Reason: PAIN-PACU ORDER X 4 DOSES ONLY Hydromorphone HCl (Hydromorphone 10 Mg/50 Ml-Ns) 10 mg ENSEMBLE MEMBER ENSEMBLE MEMBER FARAZ; Protocol Last Admin: 09/14/19 14:05 Dose: 10 mg Sodium Chloride (Normal Saline -) 1,000 mls @ 125 mls/hr IV ASDIR FARAZ Last Admin: 09/14/19 18:00 Dose: 125 mls/hr Piperacillin Sod/Tazobactam (Sod 2.25 gm/ Dextrose) 50 mls @ 100 mls/hr IVPB Q8H-IV [facility]; Protocol Last Admin: 09/15/19 09:04 Dose: 100 mls/hr Mupirocin (Bactroban Ointment (For Decolonization) -) 1 applic NS BID [facility] Stop: 09/16/19 21:59 Last Admin: 09/14/19 21:23 Dose: 1 applic Ondansetron HCl (Zofran Injection) 4 mg IVPUSH Q6H PRN PRN Reason: NAUSEA AND/OR VOMITING Ondansetron HCl (Zofran Injection) 4 mg IVPUSH Q6H PRN PRN Reason: NAUSEA AND/OR VOMITING Pantoprazole Sodium (Protonix Iv) 40 mg IVPUSH DAILY FARAZ Last Admin: 09/15/19 09:04 Dose: 40 mg Laboratory Tests 09/14/19 09/14/19 09/15/19 12:00 14:10 05:40 Calcium 8.3 L Phosphorus 5.3 H Magnesium 2.3 Albumin 1.8 L Ur Random Sodium 18 L Protein/Creatinin Ratio 0.5 68 year old woman with history of recent spinal decompression presented from rehab with back pain and found to have wound infection with spine wound infection now with PANCHO. 1. Acute kidney injury, differential PANCHO/Volume depletion in setting of infection/abcess vs. AIN from antibiotics vs. hemodynamic injury from relative hypotension 2. Spine wound infection 3. Hyponatremia in setting of decreased renal function 4. Mild hypokalemia Renal function stable at this time, no overt electrolyte or acid/base disturbance Urine studies reveal low urine Na indicating preserved tubular function no overt hypotension noted in OR flow sheets Serum Eosinophils pending Continue aggressive IV hydration with isotonic saline Continue Abx as per ID, pending urine Eosinophils if renal function not improved would consider trial off of PCN abx Not currently getting Vancomycin, highest recorded level was 16 Avoid nephrotoxins and IV contrast Neurosurgery follow up No acute indication for dialysis at this time Thank you Henri Mckeon DO
[2019-09-15 10:05] LABS: PLATELET ESTIMATE INCREASED
[2019-09-15] MEDS: SODIUM CHLORIDE 1,000 ML IV SCH (11:36)
[2019-09-15] MEDS: MUPIROCIN 2% TOPICAL OINTMENT FOR DECOLONIZATION NS SCH ×2 (11:37→21:07)
--- NOTE | 2019-09-15 11:55 | PN ---
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 [facility]; Protocol Last Admin: 09/14/19 14:05 Dose: 10 mg Piperacillin Sod/Tazobactam (Sod 2.25 gm/ Dextrose) 50 mls @ 100 mls/hr IVPB Q8H-IV [facility]; Protocol Last Admin: 09/15/19 09:04 Dose: 100 mls/hr Sodium Chloride (Normal Saline -) 1,000 mls @ 100 mls/hr IV ASDIR [facility] Last Admin: 09/15/19 11:36 Dose: 100 mls/hr Mupirocin (Bactroban Ointment (For Decolonization) -) 1 applic NS BID [facility] Stop: 09/16/19 21:59 Last Admin: 09/15/19 11:37 Dose: 1 applic Ondansetron HCl (Zofran Injection) 4 mg IVPUSH Q6H PRN PRN Reason: NAUSEA AND/OR VOMITING Ondansetron HCl (Zofran Injection) 4 mg IVPUSH Q6H PRN PRN Reason: NAUSEA AND/OR VOMITING Pantoprazole Sodium (Protonix Iv) 40 mg IVPUSH DAILY [facility] Last Admin: 09/15/19 09:04 Dose: 40 mg - Objective Vital Signs: Vital Signs Temperature 97.9 F 09/15/19 08:30 Pulse Rate 72 09/15/19 10:25 Respiratory Rate 15 09/15/19 10:25 Blood Pressure 126/53 L 09/15/19 10:25 O2 Sat by Pulse Oximetry (%) 97 09/15/19 09:00 Constitutional: Yes: No Distress, Calm, Obese Cardiovascular: Yes: S1, S2 Gastrointestinal: Yes: Normal Bowel Sounds, Soft Musculoskeletal: Yes: Back Pain Extremities: Yes: WNL Wound/Incision: Yes: Dressing Dry and Intact Neurological: Yes: Alert, Oriented Psychiatric: Yes: Alert, Oriented Labs: CBC, BMP 09/15/19 05:40 09/15/19 05:40 INR, PTT INR 1.69 (0.83-1.09) H 09/13/19 05:45 Assessment/Plan Thoracolumbar spine wound infection/Abscess s/p I&D Anemia plan cx reports noted would continue abx await for identification of the organism wound care rest as per the team
[2019-09-15] MEDS: CHLORHEXIDINE GLUCONATE 4% CLEANSER FOR DECOLONIZATION TP SCH (21:07)
[2019-09-15] MEDS: LACTOBACILLUS ACIDOPHILUS 1 TABLET PO SCH (21:07)
--- NOTE | 2019-09-15 23:33 | PN ---
Progress Note (short form) - Note Progress Note: 68F s/p L1-S1 posterior decompression & T11-S1 instrumented fusion (08/26/2019) p/w 400cc epidural abscess (09/09/2019) now s/p I&D posterior thoracolumbar spine w/repeat application wound vac POD #1. -Pre-op for tomorrow, Monday09/16/2019: NPO, IVF. Eliezer Villa MD (Orthopaedic Surgery).
[2019-09-16] MEDS ORDERED: DEXTROSE 5%-WATER - 50 ML IVPB ONE ×3 (00:41→16:47)
[2019-09-16] MEDS ORDERED: PIPERACILLIN/TAZOBACTAM 2.25 GM VIAL IVPB ONE ×3 (00:41→16:47)
[2019-09-16] MEDS: PIPERACILLIN/TAZOB 2.25 GM 2.25 GM in DEXTROSE 5%-WATER - 50 ML IVPB SCH ×3 (01:26→17:28)
[2019-09-16] MEDS: LACTOBACILLUS ACIDOPHILUS 1 TABLET PO SCH ×3 (05:57→22:49)
[2019-09-16 06:41] LABS: BASO % 0.8 % (0-2.0); EOS % 3.6 % (0-4.5); HEMATOCRIT 33.1 % (32.4-45.2); LYMPH % 14.5 % (8-40); MCH 27.4 pg (25.7-33.7); MCHC 33.3 g/dl (32.0-36.0); MEAN CELL VOLUME 82.3 fl (80-96); MEAN PLT VOLUME 6.5 fl (7.5-11.1); MONO % 12.5 % (3.8-10.2); NEUT % 68.6 % (42.8-82.8); PLATELET COUNT 524 K/MM3 (134-434); RBC 4.02 M/mm3 (3.60-5.2); RDW 15.1 % (11.6-15.6); WHITE BLOOD COUNT 8.7 K/mm3 (4.0-10.0)
[2019-09-16 07:13] LABS: ALBUMIN 1.8 g/dl (3.4-5.0); BILIRUBIN,TOTAL 0.4 mg/dL (0.2-1); BLOOD UREA NITROGEN 23.8 mg/dL (7-18); CALCIUM 8.2 mg/dL (8.5-10.1); PHOSPHOROUS 4.5 mg/dL (2.5-4.9); POTASSIUM 3.2 mmol/L (3.5-5.1); TOT PROT 4.8 g/dl (6.4-8.2)
[2019-09-16] MEDS: KCL 10 MEQ IVPB 10 MEQ/100 ML INFUS.BAG IVPB SCH ×3 (07:35→09:42)
--- NOTE | 2019-09-16 07:52 | PN ---
<Myron Coello - Last Filed: 09/16/19 08:24> Physical Exam: SUBJECTIVE: Patient seen and examined at bedside. No acute events overnight. No fevers. OBJECTIVE: Vital Signs Period Temp Pulse Resp BP Sys/No Pulse Ox Last 24 Hr 97.7 F-98.3 F 66-83 11-21 118-148/43-104 96-98 GENERAL: NAD, AAOX3 HEAD: Normal with no signs of trauma. EYES: EOMI Sclera Clear ENT: MMM NECK: Trachea midline, full range of motion, supple. LUNGS: CTA b/l Anteriorly HEART: RRR S1S2 BACK: Surgical bandage mid to lower back with wound vac. No discharge or leakage ABDOMEN: Soft, NDNT, Obese EXTREMITIES: TEDs. No pedel edema. NEUROLOGICAL: No gross focal neuo deficits. Moves all 4 extremities spontaneously. PSYCH: Normal mood, normal affect. SKIN: Warm, dry, normal turgor, no rashes or lesions noted Laboratory Results - last 24 hr 09/09/19 09/14/19 09/15/19 12:26 12:00 05:40 WBC RBC Hgb Hct MCV MCH MCHC RDW Plt Count MPV Absolute Neuts (auto) Neutrophils % Neutrophils % (Manual) 64.0 Band Neutrophils % 0.0 Lymphocytes % Lymphocytes % (Manual) 10.0 Monocytes % Monocytes % (Manual) 15 H Eosinophils % Eosinophils % (Manual) 0.0 Basophils % Basophils % (Manual) 0.0 Myelocytes % (Man) 3 H D Promyelocytes % (Man) 0 Blast Cells % (Manual) 0 Nucleated RBC % Metamyelocytes 0 Platelet Estimate Increased Sodium Potassium Chloride Carbon Dioxide Anion Gap BUN Creatinine Est GFR (CKD-EPI)AfAm Est GFR (CKD-EPI)NonAf Random Glucose Calcium Phosphorus Magnesium Iron TIBC Iron Saturation Unsaturated IBC Total Bilirubin AST ALT Alkaline Phosphatase C-Reactive Protein Total Protein Albumin Urine Eosinophils None seen Blood Type A POSITIVE Antibody Screen Negative Crossmatch See Detail 09/16/19 09/16/19 09/16/19 05:45 05:45 05:45 WBC 8.7 RBC 4.02 Hgb 11.0 Hct 33.1 MCV 82.3 MCH 27.4 MCHC 33.3 RDW 15.1 Plt Count 524 H MPV 6.5 L Absolute Neuts (auto) 6.0 Neutrophils % 68.6 Neutrophils % (Manual) Band Neutrophils % Lymphocytes % 14.5 Lymphocytes % (Manual) Monocytes % 12.5 H Monocytes % (Manual) Eosinophils % 3.6 D Eosinophils % (Manual) Basophils % 0.8 Basophils % (Manual) Myelocytes % (Man) Promyelocytes % (Man) Blast Cells % (Manual) Nucleated RBC % 0 Metamyelocytes Platelet Estimate Sodium 137 Potassium 3.2 L Chloride 105 Carbon Dioxide 22 Anion Gap 10 BUN 23.8 H Creatinine 4.0 H Est GFR (CKD-EPI)AfAm 12.37 Est GFR (CKD-EPI)NonAf 10.67 Random Glucose 72 L Calcium 8.2 L Phosphorus 4.5 Magnesium 2.0 Iron 20 L TIBC 144 L Iron Saturation 13 L Unsaturated IBC 124 L Total Bilirubin 0.4 AST 16 ALT 21 Alkaline Phosphatase 103 C-Reactive Protein 4.3 H Total Protein 4.8 L Albumin 1.8 L Urine Eosinophils Blood Type Antibody Screen Crossmatch Active Medications Generic Name Dose Route Start Last Admin Trade Name Freq PRN Reason Stop Dose Admin Benzocaine/Menthol 1 each 09/11/19 22:22 Cepacol Lozenge - MM PRN PRN SORE THROAT Chlorhexidine Gluconate 1 applic 09/11/19 22:00 09/15/19 21:07 Hibiclens For Decolonization - TP Not Given HS FARAZ Fentanyl 25 mcg 09/11/19 22:22 Sublimaze Injection - IVPUSH [id number] PRN PAIN-PACU ORDER X 4 DOSES ONLY Hydromorphone HCl 10 mg 09/14/19 11:45 09/14/19 14:05 Hydromorphone 10 Mg/50 Ml-Ns CENTERLESS GRINDER SET UP OPERATOR 10 mg CENTERLESS GRINDER SET UP OPERATOR FARAZ Administration Protocol Piperacillin Sod/Tazobactam 50 mls @ 100 mls/hr 09/14/19 18:00 09/16/19 01:26 Sod 2.25 gm/ Dextrose IVPB 100 mls/hr Q8H-IV FARAZ Administration Protocol Sodium Chloride 1,000 mls @ 100 mls/hr 09/15/19 09:34 09/16/19 00:00 Normal Saline - IV 100 mls/hr ASDIR FARAZ Administration Potassium Chloride 10 meq in 100 mls @ 100 mls/hr 09/16/19 07:30 Potassium Chloride 10 Meq Premix Ivpb - IVPB 09/16/19 10:29 Q60M FARAZ Lactobacillus Acidophilus 1 tab 09/15/19 22:00 09/16/19 05:57 Bacid - PO Not Given TID FARAZ Mupirocin 1 applic 09/11/19 22:00 09/15/19 21:07 Bactroban Ointment (For Decolonization) - NS 09/16/19 21:59 1 applic BID FARAZ Administration Ondansetron HCl 4 mg 09/11/19 22:22 Zofran Injection IVPUSH Q6H PRN NAUSEA AND/OR VOMITING Ondansetron HCl 4 mg 09/11/19 22:22 Zofran Injection IVPUSH Q6H PRN NAUSEA AND/OR VOMITING Pantoprazole Sodium 40 mg 09/12/19 10:00 09/15/19 09:04 Protonix Iv IVPUSH 40 mg DAILY FARAZ Administration ASSESSMENT/PLAN: 68 y/o F with no significant PMH who presents s/p L1-S1 posterior decompression & T11-S1 instrumented fusion (08/26/2019) now p/w wound infection. #s/p L1-S1 posterior decompression & T11-S1 instrumented fusion (08/26/2019) -s/p I&D x 3 now for repeat washout, debridement thoracolumbar spine. For O.R today 09/16/2019. -on vanc, zosyn - restarted 09/12 -back wound cx (+) E. coli, Bacteroides F. -Maintain woundvac @ 125mmHg negative pressure therapy. -incentive spirometer -pain control: CENTERLESS GRINDER SET UP OPERATOR pump -rectal tube for decompression requested by sx -ID: Dr. Tesfaye -Sx: Dr. Villa #F/E/N IV LR 100 cc/hr continue to follow lytes NPO after MN; except PO meds #PPX mechanical only- SCD/TEDs GI: protonix #Dispo ICU monitoring for repeat washout, debridement thoracolumbar spine Visit type - Emergency Visit Emergency Visit: Yes ED Registration Date: 09/09/19 Care time: The patient presented to the Emergency Department on the above date and was hospitalized for further evaluation of their emergent condition. - New Patient This patient is new to me today: No - Critical Care Critical Care patient: Yes Total Critical Care Time (in minutes): 35 Critical Care Statement: The care of this patient involved high complexity decision making to prevent further life threatening deterioration of the patient 's condition and/or to evaluate & treat vital organ system(s) failure or risk of failure. - Discharge Referral Referred to [facility] No ATTENDING PHYSICIAN STATEMENT I saw and evaluated the patient. I reviewed the resident's note and discussed the case with the resident. I agree with the resident's findings and plan as documented. SUBJECTIVE: OBJECTIVE: ASSESSMENT AND PLAN: <BuddyChristopher - Last Filed: 09/18/19 07:07> Physical Exam: SUBJECTIVE: Patient seen and examined; no new issues. Going for another washout. Pain controlled. 10 sys ROS done and negative aside from HPI OBJECTIVE: Vital Signs Period Temp Pulse Resp BP Sys/No Pulse Ox Last 24 Hr 96.7 F-98.3 F 74-96 11-21 118-161/51-93 91-98 GENERAL: The patient is awake, alert, and fully oriented, in no acute distress. HEAD: Normal with no signs of trauma. EYES: PERRL, extraocular movements intact, sclera anicteric, conjunctiva clear. No ptosis. ENT: Ears normal, nares patent, oropharynx clear without exudates, moist mucous membranes. NECK: Trachea midline, full range of motion, supple. LUNGS: Breath sounds equal, clear to auscultation bilaterally, no wheezes, no crackles, no accessory muscle use. HEART: Regular rate and rhythm, S1, S2 without murmur, rub or gallop. ABDOMEN: Soft, nontender, nondistended, normoactive bowel sounds EXTREMITIES: 2+ pulses, warm, well-perfused, no edema. Moves all 4 with normal strength. NEUROLOGICAL: Cranial nerves II through XII grossly intact. Normal speech, gait not observed. PSYCH: Normal mood, normal affect. SKIN: Warm, dry, normal turgor, no rashes or lesions noted. Post op wound dressings are c/d/i and wound vac is attached. Laboratory Results - last 24 hr 09/13/19 09/16/19 09/16/19 11:00 05:45 05:45 WBC 8.7 RBC 4.02 Hgb 11.0 Hct 33.1 MCV 82.3 MCH 27.4 MCHC 33.3 RDW 15.1 Plt Count 524 H MPV 6.5 L Absolute Neuts (auto) 6.0 Neutrophils % 68.6 Neutrophils % (Manual) 67.3 Band Neutrophils % 1.9 Lymphocytes % 14.5 Lymphocytes % (Manual) 7.5 L D Monocytes % 12.5 H Monocytes % (Manual) 14 H Eosinophils % 3.6 D Eosinophils % (Manual) 4.7 H D Basophils % 0.8 Basophils % (Manual) 1.8 D Myelocytes % (Man) 0 D Promyelocytes % (Man) 0 Blast Cells % (Manual) 0 Nucleated RBC % 0 Metamyelocytes 0 Hypochromia 0 Platelet Estimate Increased Polychromasia 0 Poikilocytosis 0 Anisocytosis 0 Microcytosis 0 Macrocytosis 0 ESR Sodium 137 Potassium 3.2 L Chloride 105 Carbon Dioxide 22 Anion Gap 10 BUN 23.8 H Creatinine 4.0 H Est GFR (CKD-EPI)AfAm 12.37 Est GFR (CKD-EPI)NonAf 10.67 Random Glucose 72 L Calcium 8.2 L Phosphorus 4.5 Magnesium 2.0 Iron TIBC Iron Saturation Unsaturated IBC Total Bilirubin 0.4 AST 16 ALT 21 Alkaline Phosphatase 103 C-Reactive Protein Total Protein 4.8 L Albumin 1.8 L Urine Color Urine Appearance Urine pH Ur Specific [place] Urine Protein Urine Glucose (UA) Urine Ketones Urine Blood Urine Nitrite Urine Bilirubin Urine Urobilinogen Ur Leukocyte Esterase Urine WBC (Auto) Urine Casts (Auto) U Epithel Cells (Auto) Urine Bacteria (Auto) U Random Total Protein Urine Creatinine Protein/Creatinin Ratio Blood Type A POSITIVE Antibody Screen Negative Crossmatch See Detail 09/16/19 09/16/19 09/16/19 05:45 05:45 17:30 WBC RBC Hgb Hct MCV MCH MCHC RDW Plt Count MPV Absolute Neuts (auto) Neutrophils % Neutrophils % (Manual) Band Neutrophils % Lymphocytes % Lymphocytes % (Manual) Monocytes % Monocytes % (Manual) Eosinophils % Eosinophils % (Manual) Basophils % Basophils % (Manual) Myelocytes % (Man) Promyelocytes % (Man) Blast Cells % (Manual) Nucleated RBC % Metamyelocytes Hypochromia Platelet Estimate Polychromasia Poikilocytosis Anisocytosis Microcytosis Macrocytosis ESR 39 H Sodium Potassium Chloride Carbon Dioxide Anion Gap BUN Creatinine Est GFR (CKD-EPI)AfAm Est GFR (CKD-EPI)NonAf Random Glucose Calcium Phosphorus Magnesium Iron 20 L TIBC 144 L Iron Saturation 13 L Unsaturated IBC 124 L Total Bilirubin AST ALT Alkaline Phosphatase C-Reactive Protein 4.3 H Total Protein Albumin Urine Color Yellow Urine Appearance Turbid Urine pH 5.0 Ur Specific [place] 1.007 L Urine Protein Trace Urine Glucose (UA) Negative Urine Ketones Negative Urine Blood Trace Urine Nitrite Negative Urine Bilirubin Negative Urine Urobilinogen 0.2 Ur Leukocyte Esterase 2+ H Urine WBC (Auto) 39 Urine Casts (Auto) 15 U Epithel Cells (Auto) 6.8 Urine Bacteria (Auto) 12.2 U Random Total Protein Urine Creatinine Protein/Creatinin Ratio Blood Type Antibody Screen Crossmatch 09/16/19 17:30 WBC RBC Hgb Hct MCV MCH MCHC RDW Plt Count MPV Absolute Neuts (auto) Neutrophils % Neutrophils % (Manual) Band Neutrophils % Lymphocytes % Lymphocytes % (Manual) Monocytes % Monocytes % (Manual) Eosinophils % Eosinophils % (Manual) Basophils % Basophils % (Manual) Myelocytes % (Man) Promyelocytes % (Man) Blast Cells % (Manual) Nucleated RBC % Metamyelocytes Hypochromia Platelet Estimate Polychromasia Poikilocytosis Anisocytosis Microcytosis Macrocytosis ESR Sodium Potassium Chloride Carbon Dioxide Anion Gap BUN Creatinine Est GFR (CKD-EPI)AfAm Est GFR (CKD-EPI)NonAf Random Glucose Calcium Phosphorus Magnesium Iron TIBC Iron Saturation Unsaturated IBC Total Bilirubin AST ALT Alkaline Phosphatase C-Reactive Protein Total Protein Albumin Urine Color Urine Appearance Urine pH Ur Specific [place] Urine Protein Urine Glucose (UA) Urine Ketones Urine Blood Urine Nitrite Urine Bilirubin Urine Urobilinogen Ur Leukocyte Esterase Urine WBC (Auto) Urine Casts (Auto) U Epithel Cells (Auto) Urine Bacteria (Auto) U Random Total Protein 44.9 H Urine Creatinine 76.0 Protein/Creatinin Ratio 0.6 Blood Type Antibody Screen Crossmatch Active Medications Generic Name Dose Route Start Last Admin Trade Name Freq PRN Reason Stop Dose Admin Benzocaine/Menthol 1 each 09/11/19 22:22 Cepacol Lozenge - MM PRN PRN SORE THROAT Chlorhexidine Gluconate 1 applic 09/16/19 22:00 Hibiclens For Decolonization - TP HS FARAZ Fentanyl 25 mcg 09/11/19 22:22 Sublimaze Injection - IVPUSH [id number] PRN PAIN-PACU ORDER X 4 DOSES ONLY Fentanyl 50 mcg 09/16/19 15:59 Sublimaze Injection - IVPUSH [id number] PRN PAIN-PACU ORDER X 4 DOSES ONLY Hydromorphone HCl 10 mg 09/14/19 11:45 09/16/19 12:17 Hydromorphone 10 Mg/50 Ml-Ns CENTERLESS GRINDER SET UP OPERATOR 10 mg CENTERLESS GRINDER SET UP OPERATOR FARAZ Administration Protocol Piperacillin Sod/Tazobactam 50 mls @ 100 mls/hr 09/14/19 18:00 09/16/19 17:28 Sod 2.25 gm/ Dextrose IVPB 100 mls/hr Q8H-IV FARAZ Administration Protocol Sodium Chloride 1,000 mls @ 100 mls/hr 09/15/19 09:34 09/16/19 17:27 Normal Saline - IV 100 mls/hr ASDIR FARAZ Administration Lactobacillus Acidophilus 1 tab 09/15/19 22:00 09/16/19 16:45 Bacid - PO Not Given TID FARAZ Mupirocin 1 applic 09/16/19 22:00 Bactroban Ointment (For Decolonization) - NS 09/21/19 21:59 BID FARAZ Ondansetron HCl 4 mg 09/11/19 22:22 Zofran Injection IVPUSH Q6H PRN NAUSEA AND/OR VOMITING Ondansetron HCl 4 mg 09/11/19 22:22 Zofran Injection IVPUSH Q6H PRN NAUSEA AND/OR VOMITING Ondansetron HCl 4 mg 09/16/19 15:59 Zofran Injection IVPUSH Q6H PRN NAUSEA AND/OR VOMITING Pantoprazole Sodium 40 mg 09/12/19 10:00 09/16/19 09:44 Protonix Iv IVPUSH 40 mg DAILY FARAZ Administration Promethazine HCl 12.5 mg 09/16/19 15:59 Phenergan Injection - IVPUSH Q6H PRN NAUSEA-FOR RESCUE AFTER 15 MIN Vancomycin HCl 125 mg 09/16/19 18:00 09/16/19 18:49 Vancomycin Oral Solution PO 125 mg Q6HPO FARAZ Administration ASSESSMENT/PLAN: Pending another washout Problems include: -Postoperative wound infection (apparently going for fifth debridement; will discuss with surgical services) -Hyponatremia (stable) -PANCHO (Nephrology consulted; prerenal vs. ATN [verify for intraoperative hypotension]. Avoid nephrotoxins, onitor elytes and Is and Os. PM BMP. NAOMI.) -Acute blood loss anemia (sgy requests h/h be kept >10/30) -Acute on chronic back pain -Morbid obesity -hypoalbuminemia -elevated alk phos; normalized but with mild dilation of CBD on US. Non-urgent MRCP prior to DC. Not havign abdominal pain. -acute on chronic back pain s/p operative fixation -Nonobstructing R-renal calculus Full Code Continue SCDs GI px if continued NPO Dispo pending final abx course and postoperative healing. ATTENDING PHYSICIAN STATEMENT I saw and evaluated the patient. I reviewed the resident's note and discussed the case with the resident. I agree with the resident's findings and plan as documented. SUBJECTIVE: OBJECTIVE: ASSESSMENT AND PLAN:
--- NOTE | 2019-09-16 08:29 | PN ---
Physical Exam: SUBJECTIVE: Patient seen and examined by the bedside, has been afebrile overnight. OBJECTIVE: Vital Signs Period Temp Pulse Resp BP Sys/No Pulse Ox Last 24 Hr 97.7 F-98.3 F 66-83 11-21 118-148/43-104 96-98 GENERAL: AOX3 HEAD: Normal with no signs of trauma. EYES: ANTONINO, EOMI ENT: Moist mucus membranes NECK: Trachea midline, full range of motion, supple. LUNGS: Clear B/L, no wheezes or crackles HEART: RRR, no murmurs or rubs BACK: Surgical bandage mid to lower back with wound vac, no erythema or discharge noted ABDOMEN: Soft, NDNT EXTREMITIES: No peripheral edema, pulses intact NEUROLOGICAL: AOx3, moves extremities, sensations intact PSYCH: Normal mood, normal affect. SKIN: Warm, dry, normal turgor, no rashes or lesions noted CBC, BMP 09/16/19 05:45 09/16/19 05:45 Current Medications Benzocaine/Menthol (Cepacol Lozenge -) 1 each MM PRN PRN PRN Reason: SORE THROAT Chlorhexidine Gluconate (Hibiclens For Decolonization -) 1 applic TP HS FARAZ Last Admin: 09/15/19 21:07 Dose: Not Given Fentanyl (Sublimaze Injection -) 25 mcg IVPUSH [id number] PRN PRN Reason: PAIN-PACU ORDER X 4 DOSES ONLY Hydromorphone HCl (Hydromorphone 10 Mg/50 Ml-Ns) 10 mg MAT MACHINE TENDER MAT MACHINE TENDER FARAZ; Protocol Last Admin: 09/14/19 14:05 Dose: 10 mg Piperacillin Sod/Tazobactam (Sod 2.25 gm/ Dextrose) 50 mls @ 100 mls/hr IVPB Q8H-IV FARAZ; Protocol Last Admin: 09/16/19 01:26 Dose: 100 mls/hr Sodium Chloride (Normal Saline -) 1,000 mls @ 100 mls/hr IV ASDIR FARAZ Last Admin: 09/16/19 00:00 Dose: 100 mls/hr Potassium Chloride (Potassium Chloride 10 Meq Premix Ivpb -) 10 meq in 100 mls @ 100 mls/hr IVPB Q60M FARAZ Stop: 09/16/19 10:29 Lactobacillus Acidophilus (Bacid -) 1 tab PO TID FARAZ Last Admin: 09/16/19 05:57 Dose: Not Given Mupirocin (Bactroban Ointment (For Decolonization) -) 1 applic NS BID [facility] Stop: 09/16/19 21:59 Last Admin: 09/15/19 21:07 Dose: 1 applic Ondansetron HCl (Zofran Injection) 4 mg IVPUSH Q6H PRN PRN Reason: NAUSEA AND/OR VOMITING Ondansetron HCl (Zofran Injection) 4 mg IVPUSH Q6H PRN PRN Reason: NAUSEA AND/OR VOMITING Pantoprazole Sodium (Protonix Iv) 40 mg IVPUSH DAILY [facility] Last Admin: 09/15/19 09:04 Dose: 40 mg ASSESSMENT/PLAN: 68F with no significant PMH, history of multiple spinal surgeries: 08/26/19: L1-S1 posterior decompression & T11-S1 instrumented fusion 09/09/19: I&D posterior thoracolumbar spine 09/11/19: I&D woth wound vac application 09/14/19: I&D with debridement thoracolumbar spine, exchanged wound vac 09/16/19: Scheduled for repeat I&D today #Neuro - AOx3 - Analgesia: MAT MACHINE TENDER #Cardio - No active issues #Pulm - Maintain O2 saturation >90% - Incentive spirometry #GI - C Diff positive, Vanco 125mg PO Q6H started - Rectal tube in place #ID - Suspecting wound infection, on Zosyn 2.2.5g IV Q8 - C Diff positive, Vanco 125mg PO Q6H started - Eosinophils 0.8 ->3.6% - ESR 39 - No growth in blood, wound cx #Renal - Cr daily trend 1.1 -> 2.6 -> 3.5 -> 3.7 -> 4.0 today - Differential for worsening renal function:PANCHO/Hypoperfusion due to infection/ abcess vs. AIN from abx vs. hemodynamic injury from relative hypotension - Consider holding PCN abx if renal function doesn't improve - Baird in place #Prophylaxis - VLADISLAV, SCD - Protonix 40mg IV #FEN - N/S @100 - K+ 3.1, ordered 3x KCl IV - Puree diet, has been NPO after midnight overnight #Disposition - Repeat I&D planned today Visit type - Emergency Visit Emergency Visit: Yes ED Registration Date: 09/09/19 Care time: The patient presented to the Emergency Department on the above date and was hospitalized for further evaluation of their emergent condition. - New Patient This patient is new to me today: No - Critical Care Critical Care patient: Yes Total Critical Care Time (in minutes): 38 Critical Care Statement: The care of this patient involved high complexity decision making to prevent further life threatening deterioration of the patient 's condition and/or to evaluate & treat vital organ system(s) failure or risk of failure. ATTENDING PHYSICIAN STATEMENT I saw and evaluated the patient. I reviewed the resident's note and discussed the case with the resident. I agree with the resident's findings and plan as documented. SUBJECTIVE: OBJECTIVE: ASSESSMENT AND PLAN:
--- NOTE | 2019-09-16 08:45 | PN ---
Progress Note (short form) - Note Progress Note: Anesthesia POD#2 S/P I&D washout S/P thoracolumber Laminectomy under GA VSS,still feels a lot of pain,on TREASURY CONSULTANT,no N/V Rectal tube is in place. A/P Continue the TREASURY CONSULTANT today. Lu Gallegos MD.
[2019-09-16 09:29] LABS: ANISOCYTOSIS 0; MACROCYTOSIS 0; PLATELET ESTIMATE INCREASED
[2019-09-16] MEDS: PANTOPRAZOLE SODIUM 40 MG VIAL IVPUSH SCH (09:44)
--- NOTE | 2019-09-16 12:10 | PN ---
Teaching Attending Note Name of Resident: Winston Knott ATTENDING PHYSICIAN STATEMENT I saw and evaluated the patient. I reviewed the resident's note and discussed the case with the resident. I agree with the resident's findings and plan as documented. SUBJECTIVE: Patient seen and examined in the ICU. Awake and alert. (+) LBP Denies CP or SOB. Intake & Output 09/13/19 09/14/19 09/15/19 09/16/19 23:59 23:59 23:59 23:59 Intake Total 2075 3210 2975 1300 Output Total 550 620 800 500 Balance 1525 2590 2175 800 Weight 231 lb 4.238 oz 230 lb 14.4 oz 231 lb 3.2 oz Last Vital Signs Temp Pulse Resp BP Pulse Ox 98.0 F 78 15 141/61 97 09/16/19 08:00 09/16/19 10:00 09/16/19 10:00 09/16/19 10:00 09/16/19 09:00 Active Medications Benzocaine/Menthol (Cepacol Lozenge -) 1 each MM PRN PRN PRN Reason: SORE THROAT Chlorhexidine Gluconate (Hibiclens For Decolonization -) 1 applic TP HS FARAZ Last Admin: 09/15/19 21:07 Dose: Not Given Fentanyl (Sublimaze Injection -) 25 mcg IVPUSH [id number] PRN PRN Reason: PAIN-PACU ORDER X 4 DOSES ONLY Hydromorphone HCl (Hydromorphone 10 Mg/50 Ml-Ns) 10 mg TRUCK REPAIR SERVICE ESTIMATOR TRUCK REPAIR SERVICE ESTIMATOR FARAZ; Protocol Last Admin: 09/14/19 14:05 Dose: 10 mg Piperacillin Sod/Tazobactam (Sod 2.25 gm/ Dextrose) 50 mls @ 100 mls/hr IVPB Q8H-IV FARAZ; Protocol Last Admin: 09/16/19 09:41 Dose: 100 mls/hr Sodium Chloride (Normal Saline -) 1,000 mls @ 100 mls/hr IV ASDIR FARAZ Last Admin: 09/16/19 00:00 Dose: 100 mls/hr Lactobacillus Acidophilus (Bacid -) 1 tab PO TID FARAZ Last Admin: 09/16/19 05:57 Dose: Not Given Mupirocin (Bactroban Ointment (For Decolonization) -) 1 applic NS BID FARAZ Stop: 09/16/19 21:59 Last Admin: 09/15/19 21:07 Dose: 1 applic Ondansetron HCl (Zofran Injection) 4 mg IVPUSH Q6H PRN PRN Reason: NAUSEA AND/OR VOMITING Ondansetron HCl (Zofran Injection) 4 mg IVPUSH Q6H PRN PRN Reason: NAUSEA AND/OR VOMITING Pantoprazole Sodium (Protonix Iv) 40 mg IVPUSH DAILY FARAZ Last Admin: 09/16/19 09:44 Dose: 40 mg Gen: NAD at rest Heart: RRR Lung: decreased breath sounds at the bases Abd: soft, nontender, + BS Thor/lumbar: dressing CDI Ext: no edema Laboratory Results - last 24 hr 09/14/19 09/16/19 09/16/19 12:00 05:45 05:45 WBC 8.7 RBC 4.02 Hgb 11.0 Hct 33.1 MCV 82.3 MCH 27.4 MCHC 33.3 RDW 15.1 Plt Count 524 H MPV 6.5 L Absolute Neuts (auto) 6.0 Neutrophils % 68.6 Neutrophils % (Manual) 67.3 Band Neutrophils % 1.9 Lymphocytes % 14.5 Lymphocytes % (Manual) 7.5 L D Monocytes % 12.5 H Monocytes % (Manual) 14 H Eosinophils % 3.6 D Eosinophils % (Manual) 4.7 H D Basophils % 0.8 Basophils % (Manual) 1.8 D Myelocytes % (Man) 0 D Promyelocytes % (Man) 0 Blast Cells % (Manual) 0 Nucleated RBC % 0 Metamyelocytes 0 Hypochromia 0 Platelet Estimate Increased Polychromasia 0 Poikilocytosis 0 Anisocytosis 0 Microcytosis 0 Macrocytosis 0 ESR Sodium 137 Potassium 3.2 L Chloride 105 Carbon Dioxide 22 Anion Gap 10 BUN 23.8 H Creatinine 4.0 H Est GFR (CKD-EPI)AfAm 12.37 Est GFR (CKD-EPI)NonAf 10.67 Random Glucose 72 L Calcium 8.2 L Phosphorus 4.5 Magnesium 2.0 Iron TIBC Iron Saturation Unsaturated IBC Total Bilirubin 0.4 AST 16 ALT 21 Alkaline Phosphatase 103 C-Reactive Protein Total Protein 4.8 L Albumin 1.8 L Urine Eosinophils None seen 09/16/19 09/16/19 05:45 05:45 WBC RBC Hgb Hct MCV MCH MCHC RDW Plt Count MPV Absolute Neuts (auto) Neutrophils % Neutrophils % (Manual) Band Neutrophils % Lymphocytes % Lymphocytes % (Manual) Monocytes % Monocytes % (Manual) Eosinophils % Eosinophils % (Manual) Basophils % Basophils % (Manual) Myelocytes % (Man) Promyelocytes % (Man) Blast Cells % (Manual) Nucleated RBC % Metamyelocytes Hypochromia Platelet Estimate Polychromasia Poikilocytosis Anisocytosis Microcytosis Macrocytosis ESR 39 H Sodium Potassium Chloride Carbon Dioxide Anion Gap BUN Creatinine Est GFR (CKD-EPI)AfAm Est GFR (CKD-EPI)NonAf Random Glucose Calcium Phosphorus Magnesium Iron 20 L TIBC 144 L Iron Saturation 13 L Unsaturated IBC 124 L Total Bilirubin AST ALT Alkaline Phosphatase C-Reactive Protein 4.3 H Total Protein Albumin Urine Eosinophils ASSESSMENT AND PLAN: Thoracolumbar spine wound infection/Abscess s/p I&D Anemia - For washout and wound vac change in OR today - continue antibiotics per ID - Follow renal function - Pain control - incentive spirometry - DVT prophylaxis - disposition and primary management per surgery Dr Patterson
[2019-09-16] MEDS: HYDROmorphone *PCA* 10MG/50ML DISP.SYRIN PCA SCH (12:17)
[2019-09-16] MEDS: MUPIROCIN 2% TOPICAL OINTMENT FOR DECOLONIZATION NS SCH ×2 (12:18→22:49)
--- NOTE | 2019-09-16 13:01 | PN ---
Progress Note, Physician History of Present Illness: patient stable no new issues - Current Medication List Current Medications: Active Medications Benzocaine/Menthol (Cepacol Lozenge -) 1 each MM PRN PRN PRN Reason: SORE THROAT Chlorhexidine Gluconate (Hibiclens For Decolonization -) 1 applic TP HS [facility] Last Admin: 09/15/19 21:07 Dose: Not Given Fentanyl (Sublimaze Injection -) 25 mcg IVPUSH [id number] PRN PRN Reason: PAIN-PACU ORDER X 4 DOSES ONLY Hydromorphone HCl (Hydromorphone 10 Mg/50 Ml-Ns) 10 mg MACHINE ETCHER MACHINE ETCHER [facility]; Protocol Last Admin: 09/16/19 12:17 Dose: 10 mg Piperacillin Sod/Tazobactam (Sod 2.25 gm/ Dextrose) 50 mls @ 100 mls/hr IVPB Q8H-IV [facility]; Protocol Last Admin: 09/16/19 09:41 Dose: 100 mls/hr Sodium Chloride (Normal Saline -) 1,000 mls @ 100 mls/hr IV ASDIR [facility] Last Admin: 09/16/19 00:00 Dose: 100 mls/hr Lactobacillus Acidophilus (Bacid -) 1 tab PO TID [facility] Last Admin: 09/16/19 05:57 Dose: Not Given Mupirocin (Bactroban Ointment (For Decolonization) -) 1 applic NS BID [facility] Stop: 09/16/19 21:59 Last Admin: 09/16/19 12:18 Dose: 1 applic Ondansetron HCl (Zofran Injection) 4 mg IVPUSH Q6H PRN PRN Reason: NAUSEA AND/OR VOMITING Ondansetron HCl (Zofran Injection) 4 mg IVPUSH Q6H PRN PRN Reason: NAUSEA AND/OR VOMITING Pantoprazole Sodium (Protonix Iv) 40 mg IVPUSH DAILY [facility] Last Admin: 09/16/19 09:44 Dose: 40 mg - Objective Vital Signs: Vital Signs Temperature 98.0 F 09/16/19 08:00 Pulse Rate 78 09/16/19 12:00 Respiratory Rate 15 09/16/19 12:00 Blood Pressure 140/54 L 09/16/19 12:00 O2 Sat by Pulse Oximetry (%) 97 09/16/19 12:00 Constitutional: Yes: No Distress, Calm Cardiovascular: Yes: S1, S2 Respiratory: Yes: Regular, CTA Bilaterally Gastrointestinal: Yes: Normal Bowel Sounds, Soft Musculoskeletal: Yes: Back Pain Extremities: Yes: WNL Wound/Incision: Yes: Dressing Dry and Intact Neurological: Yes: Alert, Oriented Psychiatric: Yes: Alert, Oriented Labs: CBC, BMP 09/16/19 05:45 09/16/19 05:45 INR, PTT INR 1.69 (0.83-1.09) H 09/13/19 05:45 Assessment/Plan Thoracolumbar spine wound infection/Abscess s/p I&D Anemia plan await for cx report await for identification of the organism wound care rest as per the team abx
[2019-09-16] MEDS ORDERED: MIDAZOLAM HCL 2 MG/2 ML SINGLE DOSE VIAL ONE ×3 (14:03→15:58)
[2019-09-16] MEDS ORDERED: fentaNYL CITRATE 250 MCG/5 ML VIAL ONE ×2 (14:03→15:46)
--- NOTE | 2019-09-16 14:04 | OP ---
Date of Operation: 09/14/2019 Surgeon: Eliezer Villa M.D. Card Tape Converter Operator: Elder Villa M.D. Pre-Operative Diagnosis: Deep thoracolumbar spine infection. Post-Operative Diagnosis: Deep thoracolumbar spine infection. Surgical Procedure: 1. Incision, drainage, debridement, and irrigation deep lumbar spine wound abscess (subfascial). (29284) 2. Application of negative pressure therapy wound vac ([id number], [id number]) Anesthesia: General endotracheal tube anesthesia. Position: Prone. Incision: Midline. Estimated Blood Loss: Minimal. Intravenous Fluid: 400cc crystalloid. Drains: 1 x WoundVac. Complications: None. Urine Output: See anesthesia record. Bacteriology: 3 x culture sticks. Closure: Application of wound vac. Indications: The patient is a 68-year-old female who was indicated for a incision, drainage, irrigation, and debridement of his/her posterior thoracolumbar spine wound to evacuate and treat local wound contamination. The patient was identified in the holding area by her arm band. A long discussion was held with the patient regarding the risks, benefits, and alternatives of the above-named procedure. The risks include, but are not limited to: Pain, bleeding, infection, damage to surrounding structures (including nerves, blood vessels, skin, ligaments, tendons, and bone), dysphagia, dysphonia, nerve palsy, wound complications, pseudarthrosis, failure of fusion, failure of hardware/implants/reduction, need for further surgery, blood clots, myocardial infarction, pulmonary embolism, cerebrovascular event, anesthesia complications, neurological injury, loss of function, and . Benefits as mentioned above. Alternatives include no surgery. All questions were answered. The patient understood and agreed to the procedure. Informed consent was obtained, witnessed, and verified. The patient was taken to the operating room after being seen by the anesthesia and nursing staff. Procedure: The patient was brought into the operating room, placed on the OR table and secured with a safety strap. Consent and the operative site was again verified with the patient and nursing and anesthesia staff. Anesthesia was then administered. A time-out was then done led by , the attending surgeon. Following intubation, the patient excessively defecated loose stool. Once she was cleaned up, the patient was then safely placed in a prone position with all bony prominences well-padded on a Bandar frame with strict attention paid to maintenance of sagittal vertical alignment. The arms were placed on well-padded arm boards and maintained with standard forward flexion, abduction, and external rotation of the shoulders, and flexion of the elbows. Special attention was given to the safe positioning of the cervical spine. The patients eyes, and belly were all free. The table was placed in 5 degrees of reverse Trendelenburg position to avoid ophthalmic vein congestion. After the patient was placed in the prone position, she excessively defecated loose stool once again. The patient and all feces were meticulously cleaned up. The dehisced wound site was then prepped and draped in the standard sterile fashion using betadine prep and scrub, wiped off with alcohol, and Duraprep applied. Pre-operative imaging was available for intra-operative evaluation. Time-out was again done, and the case began. The entirety of the previously made thoracolumbar spine incision was opened. All Lautenbach #1 PDS sutures were removed. The previously placed WoundVac dressing and all packing sponges were removed. Culture swab sticks were used to swab the wound (deep and superficial) and sent to the lab. All hardware was exposed. The wound dimensions were measured as follows: Length: 30cm. Width: 10cm. Depth: 10cm. The wound was irrigated with normal saline solution. All soft tissues and hardware were and mechanically debrided using multiple sponges with betadine soap. The wound was then irrigated with 3L normal saline solution. The wound was filled with 50% normal saline and 50% betadine solution. The wound was soaked in dilution betadine solution for 3 minutes. The wound was then irrigated with another 3L normal saline solution. There was healthy, bleeding granulation tissue overlying the erector spinae muscles and dura. Fibrinous slough was seen overlying bone and wound margins. There was no wound purulence or malodor. There was minimal tissue necrosis. Closure: With, hemostasis was assured, and the wound was packed with WoundVac sponges The superficial and deep tissues were approximated using #1 PDS monofilament sutures using Lautenbach sepsis suture technique. The skin was then cleaned, dried, and painted with DuraPrep. Adhesive Ioban and WoundVac dressing was applied. A tongue-type sponge was utilized to place the WoundVac suction device to the side of the patient's flank, so that she wouldn't be lying directly on it. The WoundVac was activated with 125mmHg negative pressure therapy. There was no suction leak. The sponges contracted into the wound, demonstrating successful WoundVac placement. Sponge and needle counts were correct at the end of the case, and I, the attending surgeon, was present and scrubbed throughout the case. The patient was then transferred to a supine position on a hopital bed. The patient was then extubated by the anesthesia staff without incident or complications and was then transferred to the recovery room in stable condition having tolerated the procedure well. Eliezer Villa M.D. [id number] MTDD
[2019-09-16] MEDS ORDERED: PROPOFOL 20 ML ONE ×8 (14:20→15:47)
--- NOTE | 2019-09-16 14:26 | PN ---
Progress Note, Physician History of Present Illness: Pt seen and examined at bedside. She is awake and alert. She denies shortness of breath. - Current Medication List Current Medications: Active Medications Benzocaine/Menthol (Cepacol Lozenge -) 1 each MM PRN PRN PRN Reason: SORE THROAT Chlorhexidine Gluconate (Hibiclens For Decolonization -) 1 applic TP HS [facility] Last Admin: 09/15/19 21:07 Dose: Not Given Fentanyl (Sublimaze Injection -) 25 mcg IVPUSH [id number] PRN PRN Reason: PAIN-PACU ORDER X 4 DOSES ONLY Hydromorphone HCl (Hydromorphone 10 Mg/50 Ml-Ns) 10 mg AURICULOTHERAPIST AURICULOTHERAPIST [facility]; Protocol Last Admin: 09/16/19 12:17 Dose: 10 mg Piperacillin Sod/Tazobactam (Sod 2.25 gm/ Dextrose) 50 mls @ 100 mls/hr IVPB Q8H-IV [facility]; Protocol Last Admin: 09/16/19 09:41 Dose: 100 mls/hr Sodium Chloride (Normal Saline -) 1,000 mls @ 100 mls/hr IV ASDIR [facility] Last Admin: 09/16/19 00:00 Dose: 100 mls/hr Lactobacillus Acidophilus (Bacid -) 1 tab PO TID [facility] Last Admin: 09/16/19 05:57 Dose: Not Given Mupirocin (Bactroban Ointment (For Decolonization) -) 1 applic NS BID [facility] Stop: 09/16/19 21:59 Last Admin: 09/16/19 12:18 Dose: 1 applic Ondansetron HCl (Zofran Injection) 4 mg IVPUSH Q6H PRN PRN Reason: NAUSEA AND/OR VOMITING Ondansetron HCl (Zofran Injection) 4 mg IVPUSH Q6H PRN PRN Reason: NAUSEA AND/OR VOMITING Pantoprazole Sodium (Protonix Iv) 40 mg IVPUSH DAILY [facility] Last Admin: 09/16/19 09:44 Dose: 40 mg Vancomycin HCl (Vancomycin Oral Solution) 125 mg PO Q6HPO [facility] - Objective Vital Signs: Vital Signs Temperature 98.0 F 09/16/19 08:00 Pulse Rate 78 09/16/19 12:00 Respiratory Rate 15 09/16/19 12:00 Blood Pressure 140/54 L 09/16/19 12:00 O2 Sat by Pulse Oximetry (%) 97 09/16/19 12:00 Constitutional: Yes: Calm Eyes: Yes: Conjunctiva Clear HENT: Yes: Atraumatic Neck: Yes: Supple Cardiovascular: Yes: S1, S2 Respiratory: Yes: CTA Bilaterally Gastrointestinal: Yes: Soft Edema: No Neurological: Yes: Oriented Psychiatric: Yes: Oriented Labs: CBC, BMP 09/16/19 05:45 09/16/19 05:45 INR, PTT INR 1.69 (0.83-1.09) H 09/13/19 05:45 Problem List - Problems (1) PANCHO (acute kidney injury) Code(s): N17.9 - ACUTE KIDNEY FAILURE, UNSPECIFIED (2) Hypokalemia Code(s): E87.6 - HYPOKALEMIA (3) Wound infection after surgery Code(s): T81.49XA - INFECTION FOLLOWING A PROCEDURE, OTHER SURGICAL SITE, INIT (4) Hx of decompressive lumbar laminectomy Code(s): Z98.890 - OTHER SPECIFIED POSTPROCEDURAL STATES Assessment/Plan Current Medications Generic Name Dose Route Start Last Admin Trade Name Freq PRN Reason Stop Dose Admin Benzocaine/Menthol 1 each 09/11/19 22:22 Cepacol Lozenge - MM PRN PRN SORE THROAT Chlorhexidine Gluconate 1 applic 09/11/19 22:00 09/15/19 21:07 Hibiclens For Decolonization - TP Not Given HS [facility] Fentanyl 25 mcg 09/11/19 22:22 Sublimaze Injection - IVPUSH [id number] PRN PAIN-PACU ORDER X 4 DOSES ONLY Hydromorphone HCl 10 mg 09/14/19 11:45 09/16/19 12:17 Hydromorphone 10 Mg/50 Ml-Ns AURICULOTHERAPIST 10 mg AURICULOTHERAPIST [facility] Administration Protocol Piperacillin Sod/Tazobactam 50 mls @ 100 mls/hr 09/14/19 18:00 09/16/19 09:41 Sod 2.25 gm/ Dextrose IVPB 100 mls/hr Q8H-IV [facility] Administration Protocol Sodium Chloride 1,000 mls @ 100 mls/hr 09/15/19 09:34 09/16/19 00:00 Normal Saline - IV 100 mls/hr ASDIR [facility] Administration Lactobacillus Acidophilus 1 tab 09/15/19 22:00 09/16/19 05:57 Bacid - PO Not Given TID [facility] Mupirocin 1 applic 09/11/19 22:00 09/16/19 12:18 Bactroban Ointment (For Decolonization) - NS 09/16/19 21:59 1 applic BID [facility] Administration Ondansetron HCl 4 mg 09/11/19 22:22 Zofran Injection IVPUSH Q6H PRN NAUSEA AND/OR VOMITING Ondansetron HCl 4 mg 09/11/19 22:22 Zofran Injection IVPUSH Q6H PRN NAUSEA AND/OR VOMITING Pantoprazole Sodium 40 mg 09/12/19 10:00 09/16/19 09:44 Protonix Iv IVPUSH 40 mg DAILY [facility] Administration Vancomycin HCl 125 mg 09/16/19 18:00 Vancomycin Oral Solution PO Q6HPO [facility] Laboratory Tests 09/14/19 09/14/19 09/14/19 12:00 12:00 14:10 Urine Protein Urine Blood Urine Eosinophils None seen Ur Random Sodium 18 L 12 L 09/14/19 14:10 Urine Protein Trace Urine Blood 2+ H Urine Eosinophils Ur Random Sodium 68 year old woman with history of recent spinal decompression presented from rehab with back pain and found to have spine wound infection now with PANCHO. 1. PANCHO 2. Spine wound infection 3. Hyponatremia in setting of decreased renal function now improved 4. hypokalemia 5. nephrolithiasis Plan - renal function is worsening - cont fluids - repeat labs in am - replace potassium and check mag - urine eos negative - repeat ua - neurosurgery on board - discussed renal function and abx with ID, they are waiting for cultures and are considering altering abx - no indication for HD at this point
[2019-09-16] MEDS ORDERED: SUCCINYLCHOLINE CHLORIDE 200 MG/10 ML SYRINGE ONE (15:47)
[2019-09-16] MEDS ORDERED: PROMETHAZINE HCL 25 MG/1 ML VIAL IVPUSH PRN (15:59)
[2019-09-16] MEDS ORDERED: ONDANSETRON 4 MG/2 ML VIAL IVPUSH PRN (15:59)
[2019-09-16] MEDS ORDERED: LACTATED RINGERS SOLUTION 1,000 ML IV SCH (16:00)
[2019-09-16] MEDS ORDERED: NEOSTIGMINE METHYLSULFATE 0.5 MG/ML - 10 ML MDV ONE (16:15)
[2019-09-16] MEDS ORDERED: PHENYLEPHRINE HCL 10 MG/1 ML SINGLE DOSE VIAL ONE (16:15)
--- NOTE | 2019-09-16 16:52 | PN ---
Progress Note (short form) - Note Progress Note: 68F s/p L1-S1 posterior decompression & T11-S1 instrumented fusion (08/26/2019) p/w 400cc epidural abscess (09/09/2019) now s/p I&D posterior thoracolumbar spine (x3) w/application wound vac (x2) POD #2. Pain well controlled. No acute events overnight. Pt. denies overnight history of headaches, chest pain, shortness of breath, nausea, vomiting, chills, & sweats. (+) Baird; (+) Flatus; (+) BM/rectal tube. (+) C.Diff stool culture. All labs and vitals reviewed. PE: AAO x 3, NAD. T/L-Spine: Incision, dressing C/D/I, woundvac intact & in place. B/L LE NV status at baseline. 68F s/p L1-S1 posterior decompression & T11-S1 instrumented fusion (08/26/2019) p/w 400cc epidural abscess (09/09/2019) now s/p I&D posterior thoracolumbar spine (x3) w/application wound vac (x2) POD #2. -Strict NPO, IVF. -Plan to return to OR later today for repeat T/L spine I&D w/wound vac exchange VS delayed primary closure. -Pain medication: per anaesthesia team; [employer]OT[employer]YPE [employer] if needed; NO NSAID's. -Maintain woundvac @ 125mmHg negative pressure therapy. -f/u OR wound tissue culture. -IV antibiotics as per ID team. -f/u daily labs. -DVT PPx: -Mechanical only: VLADISLAV's, SCD's. -Incentive spirometry. -PT/OT/Rehab, OOB. -WBAT B/L LE. -B/L UE & LE NV checks. -No heavy lifting (>5 lbs), bending or twisting x 6 months post op. -Care per ICU, ID, & medical hospitalist teams. -Will follow. Eliezer Villa MD (Orthopaedic Surgery).
--- NOTE | 2019-09-16 16:56 | PN ---
Progress Note (short form) - Note Progress Note: 68F s/p L1-S1 posterior decompression & T11-S1 instrumented fusion (08/26/2019) p/w 400cc epidural abscess (09/09/2019) now s/p I&D posterior thoracolumbar spine (x4) w/application wound vac (x3) POD #2. Intra-Op Findings: -Wound Dimensions (unchanged): -Length: 30cm. -Width: 10cm. -Depth: 10cm. -Healthy, bleeding granulation tissue overlying erector spinae muscles and dura. -Fibrinous slough overlying erector spinae musculature, bone, subcutaneous tissues, and wound margins. -(+) Shiny appearance and slippery texture of granulation tissue (IE biofilm -- > ? Group B hemolytic strep?); No purulence. No malodor. Minimal necrosis. -All metal hardware, bone, and soft tissue scrubbed/mechanically debrided extensively with sponges and diluted betadine soap. -6L NS irrigation. -3 x culture sticks sent to lab (deep swab). -Wounds approximated w/5 x #1 PDS suture (Lautenbach suture technique). -Application wound vac. Plan: -Offload heals with rolled towels under ankles to avoid heel ulcers/pressure sores. -Log roll q2h/place on wedge pillows to avoid sacral decubitus ulcer formation. -Attentive perineal hygiene. -Pain medication: per anaesthesia team; HEALTH CARE LIAISON if needed; NO NSAID's. -Maintain woundvac @ 125mmHg negative pressure therapy. -Full liquid diet only; no solids. -Maintain rectal tube. -f/u OR culture stick specimens x 3 & microbiology wound culture speciation. -IV antibiotics (wound infection) and PO antibiotics (C. Diff infection) as per ID team. -f/u daily labs. -DVT PPx: -Mechanical only: VLADISLAV's, SCD's. -Incentive spirometry. -PT/OT/Rehab, OOB daily; OOBTC as tolerated daily. -WBAT B/L LE. -B/L UE & LE NV checks. -No heavy lifting (>5 lbs), bending or twisting x 6 months post op. -Care per ICU, ID, & medical hospitalist teams. -Discharge planning: Plan to return to OR Monday09/18/2019 for repeat T/L spine I&D w/wound vac exchange VS delayed primary closure. -Will follow. Eliezer Villa MD (Orthopaedic Surgery).
--- NOTE | 2019-09-16 17:02 | PATH ---
Surgical Pathology Report Patient Name: CALLI MTZ [facility]. Rec. #: [id number] /Age/Gender: 1950 (Age: 68) / F Account: [id number] Location: ICU NATIONAL RECRUITER Taken: 09/11/2019 Received: 09/13/2019 Reported: 09/16/2019 Physicians: Mihai Medrano MD Specimen(s) Received PARASPINAL MUSCLES Clinical History Postoperative infection Final Diagnosis PARASPINAL MUSCLE, THORACO LUMBAR INCISION AND DRAINAGE: FIBROADIPOSE TISSUE AND SKELETAL MUSCLE WITH MARKED ACUTE AND CHRONIC INFLAMMATION INCLUDING FOCAL GIANT CELL INFILTRATE, ULCERATION, GRANULATION TISSUE, AND REACTIVE CHANGES. Electronically Signed Radha Preston M.D. Gross Description Received fresh labeled "paraspinal muscle," is a 6.5 x 3.5 x 2.2 cm aggregate of red-brown muscle tissue and fibrous tissue. A sales and marketing representative portion is submitted in one cassette. 09/13/2019 [facility]09/13/2019
--- NOTE | 2019-09-16 17:03 | OP ---
Operative Note - Note: Operative Date: 09/16/19 Pre-Operative Diagnosis: Deep thoracolumbar spine wound infection. Operation: 1. Irrigation, drainage, and debridement thoracolumbar spine. 2. Exchange & application of wound vac Findings: Intra-Op Findings: -Wound Dimensions (unchanged): -Length: 30cm. -Width: 10cm. -Depth: 10cm. -Healthy, bleeding granulation tissue overlying erector spinae muscles and dura. -Fibrinous slough overlying erector spinae musculature, bone, subcutaneous tissues, and wound margins. -(+) Shiny appearance and slippery texture of granulation tissue (IE biofilm -- > ? Group B hemolytic strep?); No purulence. No malodor. Minimal necrosis. Post-Operative Diagnosis: Same as Pre-op Surgeon: Eliezer Villa Asian Studies Professor: Elder Villa Anesthesiologist/LINOTYPE MACHINIST APPRENTICE: Chantale Cortez Anesthesia: General Specimens Removed: 3 x deep wound culture sticks Estimated Blood Loss (mls): 0 Drains & Tubes with Location: 1 x deep WoundVac Fluid Volume Replaced (mls): 800 (Crystalloid) Operative Report Dictated: Yes
[2019-09-16] MEDS: SODIUM CHLORIDE 1,000 ML IV SCH ×2 (17:27)
[2019-09-16 18:25] LABS: EPI CELLS 6.8 /HPF (0-5/HPF); HYALINE CASTS 15 /lpf (0-8); URINE APPEARANCE TURBID; URINE BACTERIA 12.2 /hpf (NEGATIVE); URINE BILIRUBIN NEGATIVE (NEGATIVE); URINE COLOR YELLOW; URINE GLUCOSE (UA) NEGATIVE (NEGATIVE); URINE KETONE NEGATIVE (NEGATIVE); URINE LEUK ESTERASE 2+ (NEGATIVE); URINE NITRITE NEGATIVE (NEGATIVE); URINE PROTEIN TRACE (NEGATIVE); URINE UROBILINOGEN 0.2 mg/dL (0.2-1.0); URINE WBC 39 /hpf (0-5)
[2019-09-16] MEDS: VANCOMYCIN 250 MG/5 ML ORAL SOLUTION PO SCH ×2 (18:49→23:55)
[2019-09-16 19:27] LABS: URINE RBC 99.7 /hpf (0-4); YEAST MODERATE (NEGATIVE)
[2019-09-16] MEDS: CHLORHEXIDINE GLUCONATE 4% CLEANSER FOR DECOLONIZATION TP SCH (22:50)
[2019-09-17] MEDS ORDERED: PIPERACILLIN/TAZOBACTAM 2.25 GM VIAL IVPB ONE ×3 (01:27→17:23)
[2019-09-17] MEDS ORDERED: DEXTROSE 5%-WATER - 50 ML IVPB ONE ×3 (01:27→17:23)
[2019-09-17] MEDS: PIPERACILLIN/TAZOB 2.25 GM 2.25 GM in DEXTROSE 5%-WATER - 50 ML IVPB SCH ×3 (01:41→17:31)
[2019-09-17 06:20] LABS: BASO % 0.7 % (0-2.0); EOS % 3.6 % (0-4.5); HEMOGLOBIN 10.5 GM/dL (10.7-15.3); LYMPH % 15.9 % (8-40); MCH 27.3 pg (25.7-33.7); MEAN CELL VOLUME 82.8 fl (80-96); MEAN PLT VOLUME 6.4 fl (7.5-11.1); MONO % 11.8 % (3.8-10.2); PLATELET COUNT 498 K/MM3 (134-434); RBC 3.86 M/mm3 (3.60-5.2); RDW 15.3 % (11.6-15.6); WHITE BLOOD COUNT 8.9 K/mm3 (4.0-10.0)
[2019-09-17] MEDS: LACTOBACILLUS ACIDOPHILUS 1 TABLET PO SCH ×3 (06:26→21:07)
[2019-09-17] MEDS: VANCOMYCIN 250 MG/5 ML ORAL SOLUTION PO SCH ×4 (06:26→23:36)
[2019-09-17] MEDS: HYDROmorphone *PCA* 10MG/50ML DISP.SYRIN PCA SCH ×2 (06:54→12:00)
[2019-09-17 06:58] LABS: ALBUMIN 1.6 g/dl (3.4-5.0); BILIRUBIN,TOTAL 0.4 mg/dL (0.2-1); BLOOD UREA NITROGEN 24.9 mg/dL (7-18); CALCIUM 8.2 mg/dL (8.5-10.1); CREATININE 4.4 mg/dL (0.55-1.3); PHOSPHOROUS 5.5 mg/dL (2.5-4.9); POTASSIUM 3.5 mmol/L (3.5-5.1); TOT PROT 4.4 g/dl (6.4-8.2)
[2019-09-17] MEDS: PANTOPRAZOLE SODIUM 40 MG VIAL IVPUSH SCH (09:48)
[2019-09-17] MEDS: MUPIROCIN 2% TOPICAL OINTMENT FOR DECOLONIZATION NS SCH ×2 (09:49→21:07)
[2019-09-17] MEDS: SODIUM CHLORIDE 1,000 ML IV SCH ×2 (09:54→12:02)
--- NOTE | 2019-09-17 10:54 | PN ---
Progress Note (short form) - Note Progress Note: Hospitalist Medicine C/o increased pain in back. Thirsty. With plan to return to OR tomorrow for: repeat T/L spine I&D w/wound vac exchange VS delayed primary closure. Vitals 09/17/19 09/17/19 09/17/19 06:00 08:35 08:43 Temperature 98.4 F Pulse Rate 67 Respiratory 16 Rate Blood Pressure 147/44 L O2 Sat by Pulse 96 Oximetry (%) Physical Exam GENERAL: resting in bed, in NAD HEENT: NCAT, dry MM NECK: Trachea midline, full range of motion, supple. LUNGS: CTA b/l. decreased rep effort HEART: S1, S2 RRR. no r/m/g BACK: c/d/i dressing.+ wound vac, full canister ABDOMEN: soft, nontender , nondistended EXTREMITIES: no pedal edema. pulses intact NEUROLOGICAL: storeroom supervisor 2-12 grossly intact. able to move UE, LE Laboratory Tests 09/17/19 09/17/19 09/17/19 05:30 05:30 05:30 WBC 8.9 Hgb 10.5 L Hct 32.0 L Plt Count 498 H Sodium 139 Potassium 3.5 Chloride 108 H Carbon Dioxide 20 L BUN 24.9 H Creatinine 4.4 H Random Glucose 75 AST 14 L ALT 18 Total Protein 4.4 L Albumin 1.6 L RADHA Screen Pending c-ANCA Pending Proteinase 3 (PR3) Pending p-ANCA Pending Atypical p-ANCA Pending Myeloperoxidase Ab Pending Microbiology 09/16/19 01:30 Stool Gram Stain - Final 09/16/19 01:30 Stool Clostridioides difficile Antigen - Final 09/16/19 01:30 Stool Clostridioides difficile Toxin Assay - Final 09/14/19 10:27 Back Gram Stain - Final 09/14/19 10:27 Back Wound Culture - Final NO AEROBIC OR ANAEROBIC GROWTH OBTAINED. 09/14/19 10:26 Back Gram Stain - Final 09/14/19 10:26 Back Wound Culture - Final NO AEROBIC OR ANAEROBIC GROWTH OBTAINED. 09/14/19 10:24 Back Gram Stain - Final 09/14/19 10:24 Back Wound Culture - Final NO AEROBIC OR ANAEROBIC GROWTH OBTAINED. 09/09/19 16:30 Back Gram Stain - Final 09/09/19 14:53 Urine - Urine - Catheterized Urine Culture - Final NO GROWTH OBTAINED 09/12/19 15:28 Blood - Peripheral Venous Blood Culture - Preliminary NO GROWTH OBTAINED AFTER 96 HOURS, INCUBATION TO CONTINUE FOR 1 DAYS. 09/12/19 15:20 Blood - Peripheral Venous Blood Culture - Preliminary NO GROWTH OBTAINED AFTER 96 HOURS, INCUBATION TO CONTINUE FOR 1 DAYS. 09/09/19 16:30 Back Wound Culture - Preliminary Escherichia Coli Bacteroides Fragilis Pending Organism#2 Imaging 09/09/19: CXR: s/p anterior cervical fusion. ortho hardware in the lower thoracic, upper lumbosacral spine. cardiomegaly. uncoiled thoracic aorta. no evidence of pneumothorax or large pl effusion. no evidence of pulm edema. linear opacities are noted in the right mid lung zone atelectatic changes. 09/15/19: Renal sono: nonobstructing R renal calculus 1.1cm echogenic focus lower pole R kidney 09/15/19: Abd sono: fatty infiltration of enlarged liver, cholelithiasis, nonobstructing R renal calculus, R renal cyst Assessment/Plan 68 y/o F with no significant PMH who presents s/p L1-S1 posterior decompression & T11-S1 instrumented fusion (08/26/2019) now p/w wound infection. #s/p L1-S1 posterior decompression & T11-S1 instrumented fusion (08/26/2019) -s/p I&D x 3 now for repeat washout, debridement thoracolumbar spine tomorrow -on zosyn - restarted 09/14 -also on vanco, c. diff dosing -back wound cx (+) E. coli, bacteroides. await c+s -Maintain woundvac @ 125mmHg negative pressure therapy. -incentive spirometer -pain control: ELECTRICAL TRANSMISSION ENGINEER pump -rectal tube for decompression, cont per sx -ID: Dr. Tesfaye -Sx: Dr. Villa #R/o c. diff -with c. diff ag (+) however toxin (-) -started on vanc 125mg PO q6h prophylactically -will need to d/w ID -ID: Dr. Tesfaye #F/E/N IV LR 100 cc/hr continue to follow lytes full liquid diet; NPO after MN for procedure tomorrow #PPX mechanical only- SCD/TEDs GI: protonix #Dispo ICU monitoring for repeat washout, debridement thoracolumbar spine tomorrow <Soha Reilly - Last Filed: 09/17/19 11:20> - Note Progress Note: Seen and examined; agree with above aside from as supplemented below by myself. Personally verified all historical information and yang PE findings. Independently reviewed all labs and diagnostics. I discussed the case at length with the resident and consulting services. All questions answered. Seen in ICU Seen and examined; no new complaints. GENERAL: The patient is awake, alert, and fully oriented, in no acute distress. HEAD: Normal with no signs of trauma. EYES: PERRL, extraocular movements intact, sclera anicteric, conjunctiva clear. No ptosis. ENT: Ears normal, nares patent, oropharynx clear without exudates, moist mucous membranes. NECK: Trachea midline, full range of motion, supple. LUNGS: Breath sounds equal, clear to auscultation bilaterally, no wheezes, no crackles, no accessory muscle use. HEART: Regular rate and rhythm, S1, S2 without murmur, rub or gallop. ABDOMEN: Soft, nontender, nondistended, normoactive bowel sounds EXTREMITIES: 2+ pulses, warm, well-perfused, no edema. Moves all 4 with normal strength. NEUROLOGICAL: Cranial nerves II through XII grossly intact. Normal speech, gait not observed. PSYCH: Normal mood, normal affect. SKIN: Warm, dry, normal turgor, no rashes or lesions noted. Post op wound dressings are c/d/i and wound vac is attached. Problems include: -Postoperative wound infection (apparently going for fifth debridement; will discuss with surgical services) -Hyponatremia (stable) -PANCHO (Nephrology consulted; prerenal vs. ATN [plateauing) -Acute blood loss anemia (sgy requests h/h be kept >10/30) -Acute on chronic back pain -Morbid obesity -hypoalbuminemia -elevated alk phos; normalized but with mild dilation of CBD on US. Non-urgent MRCP prior to DC. Not havign abdominal pain. -acute on chronic back pain s/p operative fixation -Nonobstructing R-renal calculus Full Code Continue SCDs GI px if continued NPO Dispo pending final abx course and postoperative healing. <Christopher Goodwin - Last Filed: 09/18/19 07:10>
[2019-09-17] MEDS ORDERED: PROMETHAZINE HCL 25 MG/1 ML VIAL IVPUSH PRN (11:41)
[2019-09-17] MEDS ORDERED: BENZOCAINE/MENTH/CETYLPYRD CL 1 EACH LOZENGE MM PRN (11:41)
[2019-09-17] MEDS ORDERED: ONDANSETRON 4 MG/2 ML VIAL IVPUSH PRN ×3 (11:41)
--- NOTE | 2019-09-17 11:48 | PN ---
Physical Exam: SUBJECTIVE: Patient seen and examined on morning rounds. s/p vac changed yesterday, plan for reop tomorrow. Patient with continued pain despite SUPERVISOR DOPING, will discuss with anesthesiology. 100cc serosanguineous drainage from wound vac overnight. Denies CP, SOB, nausea, vomiting, diarrhea. C Diff positive, was started on Vancomycin PO yesterday. OBJECTIVE: Vital Signs Period Temp Pulse Resp BP Sys/No Pulse Ox Last 24 Hr 96.7 F-98.4 F 67-96 13-19 115-161/40-93 82-97 GENERAL: AOX3 HEENT: Normal with no signs of trauma, EOMI, moist mucus membranes, trachea midline LUNGS: Clear B/L, no wheezes or crackles HEART: RRR, no murmurs or rubs BACK: Surgical bandage mid to lower back with wound vac, no erythema or discharge noted ABDOMEN: Soft, nontender, nondistended EXTREMITIES: No peripheral edema, pulses intact NEUROLOGICAL: AOx3, moves extremities, sensations intact PSYCH: Tearful, normal affect SKIN: Warm, dry, no rashes or lesions noted Laboratory Results - last 24 hr 09/13/19 09/16/19 09/16/19 11:00 17:30 17:30 WBC RBC Hgb Hct MCV MCH MCHC RDW Plt Count MPV Absolute Neuts (auto) Neutrophils % Lymphocytes % Monocytes % Eosinophils % Basophils % Nucleated RBC % Sodium Potassium Chloride Carbon Dioxide Anion Gap BUN Creatinine Est GFR (CKD-EPI)AfAm Est GFR (CKD-EPI)NonAf Random Glucose Calcium Phosphorus Magnesium Total Bilirubin AST ALT Alkaline Phosphatase Total Protein Albumin Urine Color Yellow Urine Appearance Turbid Urine pH 5.0 Ur Specific [place] 1.007 L Urine Protein Trace Urine Glucose (UA) Negative Urine Ketones Negative Urine Blood Trace Urine Nitrite Negative Urine Bilirubin Negative Urine Urobilinogen 0.2 Ur Leukocyte Esterase 2+ H Urine WBC (Auto) 39 Urine RBC (Auto) 99.7 Urine Casts (Auto) 15 U Epithel Cells (Auto) 6.8 Urine Bacteria (Auto) 12.2 Urine Yeast (Auto) Moderate U Random Total Protein 44.9 H Urine Creatinine 76.0 Protein/Creatinin Ratio 0.6 Blood Type A POSITIVE Antibody Screen Negative Crossmatch See Detail 09/17/19 09/17/19 05:30 05:30 WBC 8.9 RBC 3.86 Hgb 10.5 L Hct 32.0 L MCV 82.8 MCH 27.3 MCHC 33.0 RDW 15.3 Plt Count 498 H MPV 6.4 L Absolute Neuts (auto) 6.1 Neutrophils % 68.0 Lymphocytes % 15.9 Monocytes % 11.8 H Eosinophils % 3.6 Basophils % 0.7 Nucleated RBC % 0 Sodium 139 Potassium 3.5 Chloride 108 H Carbon Dioxide 20 L Anion Gap 11 BUN 24.9 H Creatinine 4.4 H Est GFR (CKD-EPI)AfAm 11.02 Est GFR (CKD-EPI)NonAf 9.51 Random Glucose 75 Calcium 8.2 L Phosphorus 5.5 H Magnesium 2.0 Total Bilirubin 0.4 AST 14 L ALT 18 Alkaline Phosphatase 99 Total Protein 4.4 L Albumin 1.6 L Urine Color Urine Appearance Urine pH Ur Specific [place] Urine Protein Urine Glucose (UA) Urine Ketones Urine Blood Urine Nitrite Urine Bilirubin Urine Urobilinogen Ur Leukocyte Esterase Urine WBC (Auto) Urine RBC (Auto) Urine Casts (Auto) U Epithel Cells (Auto) Urine Bacteria (Auto) Urine Yeast (Auto) U Random Total Protein Urine Creatinine Protein/Creatinin Ratio Blood Type Antibody Screen Crossmatch Active Medications Generic Name Dose Route Start Last Admin Trade Name Freq PRN Reason Stop Dose Admin Benzocaine/Menthol 1 each 09/17/19 11:41 Cepacol Lozenge - MM PRN PRN SORE THROAT Chlorhexidine Gluconate 1 applic 09/16/19 22:00 09/16/19 22:50 Hibiclens For Decolonization - TP 1 applic HS FARAZ Administration Fentanyl 25 mcg 09/17/19 11:41 Sublimaze Injection - IVPUSH [id number] PRN PAIN-PACU ORDER X 4 DOSES ONLY Fentanyl 50 mcg 09/17/19 11:41 Sublimaze Injection - IVPUSH [id number] PRN PAIN-PACU ORDER X 4 DOSES ONLY Hydromorphone HCl 10 mg 09/17/19 11:41 Hydromorphone 10 Mg/50 Ml-Ns SUPERVISOR DOPING SUPERVISOR DOPING FARAZ Protocol Piperacillin Sod/Tazobactam 50 mls @ 100 mls/hr 09/17/19 18:00 Sod 2.25 gm/ Dextrose IVPB Q8H-IV FARAZ Protocol Sodium Chloride 1,000 mls @ 100 mls/hr 09/17/19 11:41 Normal Saline - IV ASDIR [facility] Lactobacillus Acidophilus 1 tab 09/17/19 14:00 Bacid - PO TID [facility] Mupirocin 1 applic 09/16/19 22:00 09/17/19 09:49 Bactroban Ointment (For Decolonization) - NS 09/21/19 21:59 1 applic BID FARAZ Administration Ondansetron HCl 4 mg 09/17/19 11:41 Zofran Injection IVPUSH Q6H PRN NAUSEA AND/OR VOMITING Ondansetron HCl 4 mg 09/17/19 11:41 Zofran Injection IVPUSH Q6H PRN NAUSEA AND/OR VOMITING Ondansetron HCl 4 mg 09/17/19 11:41 Zofran Injection IVPUSH Q6H PRN NAUSEA AND/OR VOMITING Pantoprazole Sodium 40 mg 09/18/19 10:00 Protonix Iv IVPUSH DAILY [facility] Promethazine HCl 12.5 mg 09/17/19 11:41 Phenergan Injection - IVPUSH Q6H PRN NAUSEA-FOR RESCUE AFTER 15 MIN Vancomycin HCl 125 mg 09/17/19 12:00 Vancomycin Oral Solution PO Q6HPO [facility] ASSESSMENT/PLAN: 68F with no significant PMH, history of multiple spinal surgeries: 08/26/19: L1-S1 posterior decompression & T11-S1 instrumented fusion 09/09/19: I&D posterior thoracolumbar spine 09/11/19: I&D woth wound vac application 09/14/19: I&D with debridement thoracolumbar spine, exchanged wound vac 09/16/19: Repeat I&D #Neuro - AOx3 - Analgesia: SUPERVISOR DOPING, will discuss change / additions with anesthesiology #Cardio - No active issues #Pulm - Maintain O2 saturation >90% - Incentive spirometry #GI - C Diff positive, Vanco 125mg PO Q6H started 09/16 - Rectal tube in place since 09/13 #ID - Suspecting wound infection, on Zosyn 2.2.5g IV Q8 - C Diff positive, Vanco 125mg PO Q6H started - Eosinophils 0.8 ->3.6% - ESR 39 - No growth in blood, wound cx #Renal - Cr daily trend 1.1 -> 2.6 -> 3.5 -> 3.7 -> 4.0 -> 4.4 - Differential for worsening renal function: PANCHO/Hypoperfusion due to infection/ abcess vs. AIN from abx vs. hemodynamic injury from relative hypotension - Consider holding PCN abx if renal function doesn't improve - Baird in place #Prophylaxis - VLADISLAV, SCD - Protonix 40mg IV #FEN - N/S @100 - K+ 3.1, ordered 3x KCl IV - Puree diet, will be NPO after midnight for next surgery #Disposition - Repeat operation planned tomorrow Visit type - Emergency Visit Emergency Visit: Yes ED Registration Date: 09/09/19 Care time: The patient presented to the Emergency Department on the above date and was hospitalized for further evaluation of their emergent condition. - New Patient This patient is new to me today: No - Critical Care Critical Care patient: Yes Total Critical Care Time (in minutes): 36 Critical Care Statement: The care of this patient involved high complexity decision making to prevent further life threatening deterioration of the patient 's condition and/or to evaluate & treat vital organ system(s) failure or risk of failure. ATTENDING PHYSICIAN STATEMENT I saw and evaluated the patient. I reviewed the resident's note and discussed the case with the resident. I agree with the resident's findings and plan as documented. SUBJECTIVE: OBJECTIVE: ASSESSMENT AND PLAN:
--- NOTE | 2019-09-17 12:41 | PN ---
Progress Note, Physician History of Present Illness: stable no new issues - Current Medication List Current Medications: Active Medications Benzocaine/Menthol (Cepacol Lozenge -) 1 each MM PRN PRN PRN Reason: SORE THROAT Chlorhexidine Gluconate (Hibiclens For Decolonization -) 1 applic TP HS FARAZ Last Admin: 09/16/19 22:50 Dose: 1 applic Hydromorphone HCl (Hydromorphone 10 Mg/50 Ml-Ns) 10 mg INDUSTRIAL DESIGNER INDUSTRIAL DESIGNER FARAZ; Protocol Last Admin: 09/17/19 12:00 Dose: Not Given Piperacillin Sod/Tazobactam (Sod 2.25 gm/ Dextrose) 50 mls @ 100 mls/hr IVPB Q8H-IV FARAZ; Protocol Sodium Chloride (Normal Saline -) 1,000 mls @ 100 mls/hr IV ASDIR [facility] Last Admin: 09/17/19 12:02 Dose: Not Given Lactobacillus Acidophilus (Bacid -) 1 tab PO TID [facility] Mupirocin (Bactroban Ointment (For Decolonization) -) 1 applic NS BID [facility] Stop: 09/21/19 21:59 Last Admin: 09/17/19 09:49 Dose: 1 applic Ondansetron HCl (Zofran Injection) 4 mg IVPUSH Q6H PRN PRN Reason: NAUSEA AND/OR VOMITING Pantoprazole Sodium (Protonix Iv) 40 mg IVPUSH DAILY [facility] Vancomycin HCl (Vancomycin Oral Solution) 125 mg PO Q6HPO [facility] Last Admin: 09/17/19 12:33 Dose: 125 mg - Objective Vital Signs: Vital Signs Temperature 98.4 F 09/17/19 06:00 Pulse Rate 69 09/17/19 12:00 Respiratory Rate 17 09/17/19 12:00 Blood Pressure 146/48 L 09/17/19 12:00 O2 Sat by Pulse Oximetry (%) 99 09/17/19 12:00 Constitutional: Yes: No Distress, Calm Cardiovascular: Yes: S1, S2 Respiratory: Yes: Regular, CTA Bilaterally Gastrointestinal: Yes: Normal Bowel Sounds, Soft Musculoskeletal: Yes: Back Pain Extremities: Yes: Other Wound/Incision: Yes: Dressing Dry and Intact Neurological: Yes: Alert, Oriented Psychiatric: Yes: Alert, Oriented Labs: CBC, BMP 09/17/19 05:30 09/17/19 05:30 INR, PTT INR 1.69 (0.83-1.09) H 09/13/19 05:45 Assessment/Plan Thoracolumbar spine wound infection/Abscess s/p I&D Anemia wound infection plan continue current mgmt wound care rest as per the team and surgery
--- NOTE | 2019-09-17 13:12 | PN ---
Teaching Attending Note Name of Resident: Troy Quiroz ATTENDING PHYSICIAN STATEMENT I saw and evaluated the patient. I reviewed the resident's note and discussed the case with the resident. I agree with the resident's findings and plan as documented. SUBJECTIVE: Patient seen and examined in the ICU. Awake and alert. Still with LBP. Denies CP or SOB. Intake & Output 09/14/19 09/15/19 09/16/19 09/17/19 23:59 23:59 23:59 23:59 Intake Total 3210 2975 3050 1190 Output Total 620 800 900 850 Balance 2590 2175 2150 340 Weight 230 lb 14.4 oz 231 lb 3.2 oz Last Vital Signs Temp Pulse Resp BP Pulse Ox 98.4 F 69 17 146/48 L 99 09/17/19 06:00 09/17/19 12:00 09/17/19 12:00 09/17/19 12:00 09/17/19 12:00 Active Medications Benzocaine/Menthol (Cepacol Lozenge -) 1 each MM PRN PRN PRN Reason: SORE THROAT Chlorhexidine Gluconate (Hibiclens For Decolonization -) 1 applic TP HS FARAZ Last Admin: 09/16/19 22:50 Dose: 1 applic Hydromorphone HCl (Hydromorphone 10 Mg/50 Ml-Ns) 10 mg COMPONENT ENGINEER COMPONENT ENGINEER FARAZ; Protocol Last Admin: 09/17/19 12:00 Dose: Not Given Piperacillin Sod/Tazobactam (Sod 2.25 gm/ Dextrose) 50 mls @ 100 mls/hr IVPB Q8H-IV [facility]; Protocol Sodium Chloride (Normal Saline -) 1,000 mls @ 100 mls/hr IV ASDIR [facility] Last Admin: 09/17/19 12:02 Dose: Not Given Lactobacillus Acidophilus (Bacid -) 1 tab PO TID [facility] Mupirocin (Bactroban Ointment (For Decolonization) -) 1 applic NS BID [facility] Stop: 09/21/19 21:59 Last Admin: 09/17/19 09:49 Dose: 1 applic Ondansetron HCl (Zofran Injection) 4 mg IVPUSH Q6H PRN PRN Reason: NAUSEA AND/OR VOMITING Pantoprazole Sodium (Protonix Iv) 40 mg IVPUSH DAILY [facility] Vancomycin HCl (Vancomycin Oral Solution) 125 mg PO Q6HPO [facility] Last Admin: 09/17/19 12:33 Dose: 125 mg Gen: NAD at rest Heart: RRR Lung: decreased breath sounds at the bases Abd: soft, nontender, + BS Thor/lumbar: dressing CDI Ext: no edema ASSESSMENT AND PLAN: Thoracolumbar spine wound infection/Abscess PANCHO s/p I&D Anemia C Diff - For possible repeat washout and closure tomorrow - continue antibiotics per ID - Follow renal function - Pain control - incentive spirometry - DVT prophylaxis - Disposition and primary management per surgery Dr Patterson
--- NOTE | 2019-09-17 13:13 | PN ---
Progress Note (short form) - Note Progress Note: 68F POD1 s/p lumbar washout under GA-ETT. Pt states that pain is moderately controlled and partially alleviated by current regimen. Continue dilaudid IV EMPLOYEE COMMUNICATIONS SPECIALIST, tylenol and oral valium on a schedule.
[2019-09-17] MEDS: diazePAM 5 MG TABLET PO SCH ×2 (14:28→21:07)
--- NOTE | 2019-09-17 16:36 | PN ---
Progress Note, Physician History of Present Illness: Pt seen and examined at bedside. She is awake and alert. She denies shortness of breath. She does not have much appetite but is thirsty. - Current Medication List Current Medications: Active Medications Benzocaine/Menthol (Cepacol Lozenge -) 1 each MM PRN PRN PRN Reason: SORE THROAT Chlorhexidine Gluconate (Hibiclens For Decolonization -) 1 applic TP HS [facility] Last Admin: 09/16/19 22:50 Dose: 1 applic Diazepam (Valium -) 5 mg PO Q8H [facility] Last Admin: 09/17/19 14:28 Dose: 5 mg Hydromorphone HCl (Hydromorphone 10 Mg/50 Ml-Ns) 10 mg RAILROAD CAR LOADER RAILROAD CAR LOADER FARAZ; Protocol Last Admin: 09/17/19 12:00 Dose: Not Given Piperacillin Sod/Tazobactam (Sod 2.25 gm/ Dextrose) 50 mls @ 100 mls/hr IVPB Q8H-IV [facility]AR[facility]; Protocol Sodium Chloride (Normal Saline -) 1,000 mls @ 100 mls/hr IV ASDIR [facility] Last Admin: 09/17/19 12:02 Dose: Not Given Lactobacillus Acidophilus (Bacid -) 1 tab PO TID [facility] Last Admin: 09/17/19 14:28 Dose: 1 tab Mupirocin (Bactroban Ointment (For Decolonization) -) 1 applic NS BID [facility] Stop: 09/21/19 21:59 Last Admin: 09/17/19 09:49 Dose: 1 applic Ondansetron HCl (Zofran Injection) 4 mg IVPUSH Q6H PRN PRN Reason: NAUSEA AND/OR VOMITING Pantoprazole Sodium (Protonix Iv) 40 mg IVPUSH DAILY [facility] Vancomycin HCl (Vancomycin Oral Solution) 125 mg PO Q6HPO [facility] Last Admin: 09/17/19 12:33 Dose: 125 mg - Objective Vital Signs: Vital Signs Temperature 99 F 09/17/19 10:00 Pulse Rate 88 09/17/19 12:00 Respiratory Rate 16 09/17/19 12:00 Blood Pressure 147/54 L 09/17/19 12:00 O2 Sat by Pulse Oximetry (%) 99 09/17/19 12:00 Constitutional: Yes: Calm Eyes: Yes: Conjunctiva Clear HENT: Yes: Atraumatic Neck: Yes: Supple Cardiovascular: Yes: S1, S2 Respiratory: Yes: On Nasal O2 Gastrointestinal: Yes: Soft, Abdomen, Obese Genitourinary: Yes: Baird Present Musculoskeletal: Yes: WNL Edema: No Neurological: Yes: Oriented Psychiatric: Yes: Oriented Labs: CBC, BMP 09/17/19 05:30 09/17/19 05:30 INR, PTT INR 1.69 (0.83-1.09) H 09/13/19 05:45 Problem List - Problems (1) PANCHO (acute kidney injury) Code(s): N17.9 - ACUTE KIDNEY FAILURE, UNSPECIFIED (2) Hypokalemia Code(s): E87.6 - HYPOKALEMIA (3) Wound infection after surgery Code(s): T81.49XA - INFECTION FOLLOWING A PROCEDURE, OTHER SURGICAL SITE, INIT (4) Hx of decompressive lumbar laminectomy Code(s): Z98.890 - OTHER SPECIFIED POSTPROCEDURAL STATES Assessment/Plan Current Medications Generic Name Dose Route Start Last Admin Trade Name Freq PRN Reason Stop Dose Admin Benzocaine/Menthol 1 each 09/17/19 11:41 Cepacol Lozenge - MM PRN PRN SORE THROAT Chlorhexidine Gluconate 1 applic 09/16/19 22:00 09/16/19 22:50 Hibiclens For Decolonization - TP 1 applic HS FARAZ Administration Diazepam 5 mg 09/17/19 14:00 09/17/19 14:28 Valium - PO 5 mg Q8H FARAZ Administration Hydromorphone HCl 10 mg 09/17/19 11:41 09/17/19 12:00 Hydromorphone 10 Mg/50 Ml-Ns RAILROAD CAR LOADER Not Given RAILROAD CAR LOADER FARAZ Protocol Piperacillin Sod/Tazobactam 50 mls @ 100 mls/hr 09/17/19 18:00 Sod 2.25 gm/ Dextrose IVPB Q8H-IV FARAZ Protocol Sodium Chloride 1,000 mls @ 100 mls/hr 09/17/19 11:41 09/17/19 12:02 Normal Saline - IV Not Given ASDIR [facility] Lactobacillus Acidophilus 1 tab 09/17/19 14:00 09/17/19 14:28 Bacid - PO 1 tab TID FARAZ Administration Mupirocin 1 applic 09/16/19 22:00 09/17/19 09:49 Bactroban Ointment (For Decolonization) - NS 09/21/19 21:59 1 applic BID FARAZ Administration Ondansetron HCl 4 mg 09/17/19 11:41 Zofran Injection IVPUSH Q6H PRN NAUSEA AND/OR VOMITING Pantoprazole Sodium 40 mg 09/18/19 10:00 Protonix Iv IVPUSH DAILY [facility] Vancomycin HCl 125 mg 09/17/19 12:00 09/17/19 12:33 Vancomycin Oral Solution PO 125 mg Q6HPO [facility]AR[facility] Administration Laboratory Tests 09/17/19 05:30 RADHA Screen Pending c-ANCA Pending Proteinase 3 (PR3) Pending p-ANCA Pending Atypical p-ANCA Pending Myeloperoxidase Ab Pending 68 year old woman with history of recent spinal decompression presented from rehab with back pain and found to have spine wound infection now with PANCHO. 1. PANCHO 2. Spine wound infection 3. Hyponatremia in setting of decreased renal function now improved 4. hypokalemia 5. nephrolithiasis Plan - cont fluids - follow renal workup - repeat ua and lytes - consider alternate agent other than zosyn, discusses with ID - repeat labs in am - renal function is worsening - neurosurgery on board - no indication for HD at this point
--- NOTE | 2019-09-17 18:09 | PN ---
Progress Note (short form) - Note Progress Note: 68F s/p L1-S1 posterior decompression & T11-S1 instrumented fusion (08/26/2019) p/w 400cc epidural abscess (09/09/2019) now s/p I&D posterior thoracolumbar spine (x3) w/application wound vac (x2) POD #1. Pain well controlled. No acute events overnight. Pt. denies overnight history of headaches, chest pain, shortness of breath, nausea, vomiting, chills, & sweats. (+) Baird; (+) Flatus; (+) BM/rectal tube. (+) C.Diff stool culture. All labs and vitals reviewed. PE: AAO x 3, NAD. T/L-Spine: Incision, dressing C/D/I, woundvac intact & in place. B/L LE NV status at baseline. 68F s/p L1-S1 posterior decompression & T11-S1 instrumented fusion (08/26/2019) p/w 400cc epidural abscess (09/09/2019) now s/p I&D posterior thoracolumbar spine (x3) w/application wound vac (x2) POD #1. -Strict NPO, IVF at midnight. -Plan to return to OR tomorrow (09/18/2019) for repeat T/L spine I&D w/wound vac exchange VS delayed primary closure. -Offload heals with rolled towels under ankles to avoid heel ulcers/pressure sores. -Log roll q2h/place on wedge pillows to avoid sacral decubitus ulcer formation. -Attentive perineal hygiene. -Pain medication: per anaesthesia team; PHOTO LAB SPECIALIST if needed; NO NSAID's. -Maintain woundvac @ 125mmHg negative pressure therapy. -f/u OR culture stick specimens x 3 & microbiology wound culture speciation. -IV antibiotics (wound infection) and PO antibiotics (C. Diff infection) as per ID team. -f/u daily labs. -DVT PPx: -Mechanical only: VLADISLAV's, SCD's. -Incentive spirometry. -PT/OT/Rehab, OOB daily; OOBTC as tolerated daily. -WBAT B/L LE. -B/L UE & LE NV checks. -No heavy lifting (>5 lbs), bending or twisting x 6 months post op. -Care per ICU, ID, & medical hospitalist teams. -Discharge planning: Plan to return to OR Monday09/18/2019 for repeat T/L spine I&D w/wound vac exchange VS delayed primary closure. -Will follow. Eliezer Villa MD (Orthopaedic Surgery).
[2019-09-17 19:04] LABS: EPI CELLS 2.5 /HPF (0-5/HPF); HYALINE CASTS 5 /lpf (0-8); URINE APPEARANCE CLEAR; URINE BACTERIA 2.4 /hpf (NEGATIVE); URINE BILIRUBIN NEGATIVE (NEGATIVE); URINE COLOR YELLOW; URINE GLUCOSE (UA) NEGATIVE (NEGATIVE); URINE KETONE NEGATIVE (NEGATIVE); URINE LEUK ESTERASE NEGATIVE (NEGATIVE); URINE NITRITE NEGATIVE (NEGATIVE); URINE PROTEIN TRACE (NEGATIVE); URINE UROBILINOGEN 0.2 mg/dL (0.2-1.0); URINE WBC 8 /hpf (0-5)
[2019-09-17 20:59] LABS: YEAST MOD (NEGATIVE)
[2019-09-17] MEDS: CHLORHEXIDINE GLUCONATE 4% CLEANSER FOR DECOLONIZATION TP SCH (21:38)
[2019-09-18 00:59] LABS: URINE RBC 4 /hpf (0-4)
[2019-09-18] MEDS ORDERED: DEXTROSE 5%-WATER - 50 ML IVPB ONE ×3 (01:59→13:25)
[2019-09-18] MEDS ORDERED: PIPERACILLIN/TAZOBACTAM 2.25 GM VIAL IVPB ONE ×2 (01:59→08:37)
[2019-09-18] MEDS: PIPERACILLIN/TAZOB 2.25 GM 2.25 GM in DEXTROSE 5%-WATER - 50 ML IVPB SCH ×2 (02:18→09:03)
[2019-09-18] MEDS: LACTOBACILLUS ACIDOPHILUS 1 TABLET PO SCH ×3 (06:20→22:57)
[2019-09-18] MEDS: diazePAM 5 MG TABLET PO SCH ×3 (06:21→22:57)
[2019-09-18] MEDS: VANCOMYCIN 250 MG/5 ML ORAL SOLUTION PO SCH ×3 (06:21→18:02)
[2019-09-18 06:33] LABS: BASO % 0.8 % (0-2.0); EOS % 3.1 % (0-4.5); LYMPH % 14.2 % (8-40); MCH 27.3 pg (25.7-33.7); MCHC 33.4 g/dl (32.0-36.0); MEAN CELL VOLUME 81.9 fl (80-96); MEAN PLT VOLUME 6.4 fl (7.5-11.1); MONO % 10.2 % (3.8-10.2); NEUT % 71.7 % (42.8-82.8); PLATELET COUNT 421 K/MM3 (134-434); RBC 3.66 M/mm3 (3.60-5.2); RDW 15.4 % (11.6-15.6); WHITE BLOOD COUNT 9.4 K/mm3 (4.0-10.0)
[2019-09-18 06:53] LABS: ALBUMIN 1.5 g/dl (3.4-5.0); BILIRUBIN,TOTAL 0.3 mg/dL (0.2-1); BLOOD UREA NITROGEN 25.4 mg/dL (7-18); CREATININE 4.5 mg/dL (0.55-1.3); MAGNESIUM 1.9 mg/dL (1.8-2.4); PHOSPHOROUS 5.1 mg/dL (2.5-4.9); POTASSIUM 3.1 mmol/L (3.5-5.1); TOT PROT 4.4 g/dl (6.4-8.2)
[2019-09-18] MEDS: HYDROmorphone *PCA* 10MG/50ML DISP.SYRIN PCA SCH (07:02)
--- NOTE | 2019-09-18 08:16 | PN ---
Physical Exam: SUBJECTIVE: Patient seen and examined by the bedside, complaining of back pain. OBJECTIVE: Vital Signs Period Temp Pulse Resp BP Sys/No Pulse Ox Last 24 Hr 98.3 F-99.6 F 67-92 14-19 142-165/44-71 96-99 GENERAL: AOX3 HEENT: Normal with no signs of trauma, EOMI, moist mucus membranes, trachea midline LUNGS: Clear B/L, no wheezes or crackles HEART: RRR, no murmurs or rubs BACK: Surgical bandage mid to lower back with wound vac, no erythema or discharge noted ABDOMEN: Soft, nontender, nondistended, rectal tube in place EXTREMITIES: No peripheral edema, pulses intact NEUROLOGICAL: AOx3, moves extremities, sensations intact PSYCH: Tearful, normal affect SKIN: Warm, dry, no rashes or lesions noted Laboratory Results - last 24 hr 09/17/19 09/17/19 09/17/19 10:40 17:30 17:30 WBC RBC Hgb Hct MCV MCH MCHC RDW Plt Count MPV Absolute Neuts (auto) Neutrophils % Lymphocytes % Monocytes % Eosinophils % Basophils % Nucleated RBC % Sodium Potassium Chloride Carbon Dioxide Anion Gap BUN Creatinine Est GFR (CKD-EPI)AfAm Est GFR (CKD-EPI)NonAf Random Glucose Calcium Phosphorus Magnesium Total Bilirubin AST ALT Alkaline Phosphatase Total Protein Albumin Urine Color Urine Appearance Urine pH Ur Specific Mineral Urine Protein Urine Glucose (UA) Urine Ketones Urine Blood Urine Nitrite Urine Bilirubin Urine Urobilinogen Ur Leukocyte Esterase Urine WBC (Auto) Urine RBC (Auto) Urine Casts (Auto) U Epithel Cells (Auto) Urine Bacteria (Auto) Urine Yeast (Auto) Ur Random Creatinine 96.0 Ur Random Sodium 34 L Ur Random Potassium 13.0 L Ur Random Chloride 38 L Blood Type A POSITIVE Antibody Screen Negative 09/17/19 09/18/19 09/18/19 17:30 05:25 05:25 WBC 9.4 RBC 3.66 Hgb 10.0 L Hct 30.0 L MCV 81.9 MCH 27.3 MCHC 33.4 RDW 15.4 Plt Count 421 MPV 6.4 L Absolute Neuts (auto) 6.7 Neutrophils % 71.7 Lymphocytes % 14.2 Monocytes % 10.2 Eosinophils % 3.1 Basophils % 0.8 Nucleated RBC % 0 Sodium 138 Potassium 3.1 L Chloride 109 H Carbon Dioxide 18 L Anion Gap 12 BUN 25.4 H Creatinine 4.5 H Est GFR (CKD-EPI)AfAm 10.73 Est GFR (CKD-EPI)NonAf 9.26 Random Glucose 79 Calcium 8.0 L Phosphorus 5.1 H Magnesium 1.9 Total Bilirubin 0.3 AST 11 L ALT 15 Alkaline Phosphatase 96 Total Protein 4.4 L Albumin 1.5 L Urine Color Yellow Urine Appearance Clear Urine pH 5.0 Ur Specific Mineral 1.009 L Urine Protein Trace Urine Glucose (UA) Negative Urine Ketones Negative Urine Blood Trace Urine Nitrite Negative Urine Bilirubin Negative Urine Urobilinogen 0.2 Ur Leukocyte Esterase Negative Urine WBC (Auto) 8 Urine RBC (Auto) 4 Urine Casts (Auto) 5 U Epithel Cells (Auto) 2.5 Urine Bacteria (Auto) 2.4 Urine Yeast (Auto) Mod Ur Random Creatinine Ur Random Sodium Ur Random Potassium Ur Random Chloride Blood Type Antibody Screen Active Medications Generic Name Dose Route Start Last Admin Trade Name Freq PRN Reason Stop Dose Admin Benzocaine/Menthol 1 each 09/17/19 11:41 Cepacol Lozenge - MM PRN PRN SORE THROAT Chlorhexidine Gluconate 1 applic 09/16/19 22:00 09/17/19 21:38 Hibiclens For Decolonization - TP 1 applic HS FARAZ Administration Diazepam 5 mg 09/17/19 14:00 09/18/19 06:21 Valium - PO 5 mg Q8H FARAZ Administration Hydromorphone HCl 10 mg 09/17/19 11:41 09/18/19 07:02 Hydromorphone 10 Mg/50 Ml-Ns FREIGHT INSPECTOR 10 mg FREIGHT INSPECTOR FARAZ Administration Protocol Piperacillin Sod/Tazobactam 50 mls @ 100 mls/hr 09/17/19 18:00 09/18/19 02:18 Sod 2.25 gm/ Dextrose IVPB 100 mls/hr Q8H-IV FARAZ Administration Protocol Sodium Chloride 1,000 mls @ 100 mls/hr 09/17/19 11:41 09/17/19 12:02 Normal Saline - IV Not Given ASDIR FARAZ Lactobacillus Acidophilus 1 tab 09/17/19 14:00 09/18/19 06:20 Bacid - PO 1 tab TID FARAZ Administration Mupirocin 1 applic 09/16/19 22:00 09/17/19 21:07 Bactroban Ointment (For Decolonization) - NS 09/21/19 21:59 1 applic BID FARAZ Administration Ondansetron HCl 4 mg 09/17/19 11:41 Zofran Injection IVPUSH Q6H PRN NAUSEA AND/OR VOMITING Pantoprazole Sodium 40 mg 09/18/19 10:00 Protonix Iv IVPUSH DAILY FARAZ Vancomycin HCl 125 mg 09/17/19 12:00 09/18/19 06:21 Vancomycin Oral Solution PO 125 mg Q6HPO FARAZ Administration ASSESSMENT/PLAN: 68F with no significant PMH, history of multiple spinal surgeries: 08/26/19: L1-S1 posterior decompression & T11-S1 instrumented fusion 09/09/19: I&D posterior thoracolumbar spine 09/11/19: I&D woth wound vac application 09/14/19: I&D with debridement thoracolumbar spine, exchanged wound vac 09/16/19: Repeat I&D 09/18/19: Washout planned today #Neuro - Washout planned today - AOx3 - Analgesia: FREIGHT INSPECTOR, will discuss change / additions with anesthesiology #Cardio - No active issues #Pulm - Maintain O2 saturation >90% - Incentive spirometry #GI - C Diff positive, Vanco 125mg PO Q6H started 09/16 - Rectal tube in place since 09/13 #ID - ID recs: Started on Ceftriaxone, Zosyn D/Max, ova and parasites ordered - Wound cx 09/09: Campylobacter Gracilis, E coli, Bacteroides Fragilis - C Diff positive, Vanco 125mg PO Q6H started - WBC 9.4, Eosinophils 0.8 ->3.6% - ESR 39 #Renal - Cr daily trend 1.1 -> 2.6 -> 3.5 -> 3.7 -> 4.0 -> 4.4 -> 4.5 - Differential for worsening renal function: PANCHO/Hypoperfusion due to infection/ abcess vs. AIN from abx vs. hemodynamic injury hypoperfusion - Renal recs: consider alternate agent other than zosyn - Baird in place #Prophylaxis - VLADISLAV, SCD - Protonix 40mg IV #FEN - N/S @100 - K+ 3.1, ordered 3x KCl IV - NPO prior to surgery #Disposition - Repeat operation planned tomorrow Visit type - Emergency Visit Emergency Visit: Yes ED Registration Date: 09/09/19 Care time: The patient presented to the Emergency Department on the above date and was hospitalized for further evaluation of their emergent condition. - New Patient This patient is new to me today: Yes Date on this admission: 09/19/19 - Critical Care Critical Care patient: Yes Total Critical Care Time (in minutes): 39 Critical Care Statement: The care of this patient involved high complexity decision making to prevent further life threatening deterioration of the patient 's condition and/or to evaluate & treat vital organ system(s) failure or risk of failure. ATTENDING PHYSICIAN STATEMENT I saw and evaluated the patient. I reviewed the resident's note and discussed the case with the resident. I agree with the resident's findings and plan as documented. SUBJECTIVE: OBJECTIVE: ASSESSMENT AND PLAN:
[2019-09-18] MEDS: KCL 10 MEQ IVPB 10 MEQ/100 ML INFUS.BAG IVPB SCH ×4 (08:38→22:58)
[2019-09-18] MEDS: MUPIROCIN 2% TOPICAL OINTMENT FOR DECOLONIZATION NS SCH ×2 (09:05→22:59)
[2019-09-18] MEDS ORDERED: PANTOPRAZOLE SODIUM 40 MG VIAL IVPUSH SCH (10:00)
--- NOTE | 2019-09-18 12:40 | PN ---
Teaching Attending Note Name of Resident: Winston Knott ATTENDING PHYSICIAN STATEMENT I saw and evaluated the patient. I reviewed the resident's note and discussed the case with the resident. I agree with the resident's findings and plan as documented. SUBJECTIVE: Pt seen and examined in the ICU. To return to OR today. OBJECTIVE: Vital Signs Period Temp Pulse Resp BP Sys/No Pulse Ox Last 24 Hr 98.3 F-100 F 76-89 14-19 142-165/44-80 96-99 Intake & Output 09/15/19 09/16/19 09/17/19 09/18/19 23:59 23:59 23:59 23:59 Intake Total 2975 3050 1690 750 Output Total 043 257 2928 475 Balance 2175 2150 115 275 Weight 104.871 kg Gen: NAD at rest Heart: RRR Lung: decreased breath sounds at the bases Abd: soft, nontender Ext: no edema CBC, BMP 09/18/19 05:25 09/18/19 05:25 Active Medications Benzocaine/Menthol (Cepacol Lozenge -) 1 each MM PRN PRN PRN Reason: SORE THROAT Chlorhexidine Gluconate (Hibiclens For Decolonization -) 1 applic TP HS [facility] Last Admin: 09/17/19 21:38 Dose: 1 applic Diazepam (Valium -) 5 mg PO Q8H FARAZ Last Admin: 09/18/19 06:21 Dose: 5 mg Hydromorphone HCl (Hydromorphone 10 Mg/50 Ml-Ns) 10 mg WASTE CHOPPER WASTE CHOPPER FARAZ; Protocol Last Admin: 09/18/19 07:02 Dose: 10 mg Piperacillin Sod/Tazobactam (Sod 2.25 gm/ Dextrose) 50 mls @ 100 mls/hr IVPB Q8H-IV FARAZ; Protocol Last Admin: 09/18/19 09:03 Dose: 100 mls/hr Sodium Chloride (Normal Saline -) 1,000 mls @ 100 mls/hr IV ASDIR FARAZ Last Admin: 09/17/19 12:02 Dose: Not Given Lactobacillus Acidophilus (Bacid -) 1 tab PO TID FARAZ Last Admin: 09/18/19 06:20 Dose: 1 tab Mupirocin (Bactroban Ointment (For Decolonization) -) 1 applic NS BID FARAZ Stop: 09/21/19 21:59 Last Admin: 09/18/19 09:05 Dose: 1 applic Ondansetron HCl (Zofran Injection) 4 mg IVPUSH Q6H PRN PRN Reason: NAUSEA AND/OR VOMITING Pantoprazole Sodium (Protonix Iv) 40 mg IVPUSH DAILY [facility] Last Admin: 09/18/19 11:46 Dose: 40 mg Vancomycin HCl (Vancomycin Oral Solution) 125 mg PO Q6HPO [facility] Last Admin: 09/18/19 06:21 Dose: 125 mg ASSESSMENT AND PLAN: Thoracolumbar spine wound infection/Abscess s/p I&D Acute Kidney Injury Anemia +C diff Ag - for OR today - continue antibiotics - f/u cultures - pain control - incentive spirometry - IVF - monitor urine output, creatinine - replete lytes - DVT prophylaxis - disposition per surgery
--- NOTE | 2019-09-18 12:45 | PN ---
Progress Note, Physician History of Present Illness: Pt seen and examined at bedside. She is awake and alert. She denies shortness of breath. She has poor appetite. - Current Medication List Current Medications: Active Medications Benzocaine/Menthol (Cepacol Lozenge -) 1 each MM PRN PRN PRN Reason: SORE THROAT Chlorhexidine Gluconate (Hibiclens For Decolonization -) 1 applic TP HS [facility] Last Admin: 09/17/19 21:38 Dose: 1 applic Diazepam (Valium -) 5 mg PO Q8H FARAZ Last Admin: 09/18/19 06:21 Dose: 5 mg Hydromorphone HCl (Hydromorphone 10 Mg/50 Ml-Ns) 10 mg COMMUNITY RELATIONS DIRECTOR COMMUNITY RELATIONS DIRECTOR FARAZ; Protocol Last Admin: 09/18/19 07:02 Dose: 10 mg Piperacillin Sod/Tazobactam (Sod 2.25 gm/ Dextrose) 50 mls @ 100 mls/hr IVPB Q8H-IV FARAZ; Protocol Last Admin: 09/18/19 09:03 Dose: 100 mls/hr Sodium Chloride (Normal Saline -) 1,000 mls @ 100 mls/hr IV ASDIR [facility] Last Admin: 09/17/19 12:02 Dose: Not Given Lactobacillus Acidophilus (Bacid -) 1 tab PO TID [facility] Last Admin: 09/18/19 06:20 Dose: 1 tab Mupirocin (Bactroban Ointment (For Decolonization) -) 1 applic NS BID [facility] Stop: 09/21/19 21:59 Last Admin: 09/18/19 09:05 Dose: 1 applic Ondansetron HCl (Zofran Injection) 4 mg IVPUSH Q6H PRN PRN Reason: NAUSEA AND/OR VOMITING Pantoprazole Sodium (Protonix Iv) 40 mg IVPUSH DAILY [facility] Last Admin: 09/18/19 11:46 Dose: 40 mg Vancomycin HCl (Vancomycin Oral Solution) 125 mg PO Q6HPO [facility] Last Admin: 09/18/19 06:21 Dose: 125 mg - Objective Vital Signs: Vital Signs Temperature 100 F H 09/18/19 10:12 Pulse Rate 76 09/18/19 10:12 Respiratory Rate 14 09/18/19 10:12 Blood Pressure 152/80 09/18/19 11:44 O2 Sat by Pulse Oximetry (%) 96 09/18/19 08:25 Constitutional: Yes: Calm Eyes: Yes: Conjunctiva Clear HENT: Yes: Atraumatic Cardiovascular: Yes: S1, S2 Respiratory: Yes: CTA Bilaterally Gastrointestinal: Yes: Normal Bowel Sounds, Soft Genitourinary: Yes: Baird Present Edema: LLE: Trace, RLE: Trace Neurological: Yes: Oriented Psychiatric: Yes: Oriented Labs: CBC, BMP 09/18/19 05:25 09/18/19 05:25 INR, PTT INR 1.69 (0.83-1.09) H 09/13/19 05:45 Problem List - Problems (1) PANCHO (acute kidney injury) Code(s): N17.9 - ACUTE KIDNEY FAILURE, UNSPECIFIED (2) Hypokalemia Code(s): E87.6 - HYPOKALEMIA (3) Wound infection after surgery Code(s): T81.49XA - INFECTION FOLLOWING A PROCEDURE, OTHER SURGICAL SITE, INIT (4) Hx of decompressive lumbar laminectomy Code(s): Z98.890 - OTHER SPECIFIED POSTPROCEDURAL STATES Assessment/Plan Current Medications Generic Name Dose Route Start Last Admin Trade Name Freq PRN Reason Stop Dose Admin Benzocaine/Menthol 1 each 09/17/19 11:41 Cepacol Lozenge - MM PRN PRN SORE THROAT Chlorhexidine Gluconate 1 applic 09/16/19 22:00 09/17/19 21:38 Hibiclens For Decolonization - TP 1 applic HS FARAZ Administration Diazepam 5 mg 09/17/19 14:00 09/18/19 06:21 Valium - PO 5 mg Q8H FARAZ Administration Hydromorphone HCl 10 mg 09/17/19 11:41 09/18/19 07:02 Hydromorphone 10 Mg/50 Ml-Ns COMMUNITY RELATIONS DIRECTOR 10 mg COMMUNITY RELATIONS DIRECTOR FARAZ Administration Protocol Piperacillin Sod/Tazobactam 50 mls @ 100 mls/hr 09/17/19 18:00 09/18/19 09:03 Sod 2.25 gm/ Dextrose IVPB 100 mls/hr Q8H-IV FARAZ Administration Protocol Sodium Chloride 1,000 mls @ 100 mls/hr 09/17/19 11:41 09/17/19 12:02 Normal Saline - IV Not Given ASDIR FARAZ Lactobacillus Acidophilus 1 tab 09/17/19 14:00 09/18/19 06:20 Bacid - PO 1 tab TID FARAZ Administration Mupirocin 1 applic 09/16/19 22:00 09/18/19 09:05 Bactroban Ointment (For Decolonization) - NS 09/21/19 21:59 1 applic BID FARAZ Administration Ondansetron HCl 4 mg 09/17/19 11:41 Zofran Injection IVPUSH Q6H PRN NAUSEA AND/OR VOMITING Pantoprazole Sodium 40 mg 09/18/19 10:00 09/18/19 11:46 Protonix Iv IVPUSH 40 mg DAILY FARAZ Administration Vancomycin HCl 125 mg 09/17/19 12:00 09/18/19 06:21 Vancomycin Oral Solution PO 125 mg Q6HPO FARAZ Administration 1. PANCHO 2. Spine wound infection 3. Hyponatremia in setting of decreased renal function now improved 4. hypokalemia 5. nephrolithiasis Plan - replace potassium - follow serologies - encourage PO intake - consider alternate agent other than zosyn, discusses with ID - repeat labs in am - renal function is worsening - neurosurgery on board - no indication for HD at this point
[2019-09-18] MEDS ORDERED: CEFTRIAXONE 1 GM in DEXTROSE 5%-WATER - 50 ML IVPB SCH (13:15)
--- NOTE | 2019-09-18 13:16 | PN ---
Progress Note, Physician History of Present Illness: patient stable plan is go for wash out - Current Medication List Current Medications: Active Medications Benzocaine/Menthol (Cepacol Lozenge -) 1 each MM PRN PRN PRN Reason: SORE THROAT Chlorhexidine Gluconate (Hibiclens For Decolonization -) 1 applic TP HS [facility] Last Admin: 09/17/19 21:38 Dose: 1 applic Diazepam (Valium -) 5 mg PO Q8H [facility] Last Admin: 09/18/19 06:21 Dose: 5 mg Hydromorphone HCl (Hydromorphone 10 Mg/50 Ml-Ns) 10 mg LINUX ADMIN LINUX ADMIN FARAZ; Protocol Last Admin: 09/18/19 07:02 Dose: 10 mg Sodium Chloride (Normal Saline -) 1,000 mls @ 100 mls/hr IV ASDIR [facility] Last Admin: 09/17/19 12:02 Dose: Not Given Ceftriaxone Sodium 1 gm/ (Dextrose) 50 mls @ 200 mls/hr IVPB DAILY [facility]; Protocol Lactobacillus Acidophilus (Bacid -) 1 tab PO TID [facility] Last Admin: 09/18/19 06:20 Dose: 1 tab Mupirocin (Bactroban Ointment (For Decolonization) -) 1 applic NS BID [facility] Stop: 09/21/19 21:59 Last Admin: 09/18/19 09:05 Dose: 1 applic Ondansetron HCl (Zofran Injection) 4 mg IVPUSH Q6H PRN PRN Reason: NAUSEA AND/OR VOMITING Pantoprazole Sodium (Protonix Iv) 40 mg IVPUSH DAILY [facility] Last Admin: 09/18/19 11:46 Dose: 40 mg Vancomycin HCl (Vancomycin Oral Solution) 125 mg PO Q6HPO [facility] Last Admin: 09/18/19 06:21 Dose: 125 mg - Objective Vital Signs: Vital Signs Temperature 100 F H 09/18/19 10:10 Pulse Rate 74 09/18/19 12:00 Respiratory Rate 14 09/18/19 12:00 Blood Pressure 138/56 L 09/18/19 12:00 O2 Sat by Pulse Oximetry (%) 96 09/18/19 08:25 Constitutional: Yes: No Distress, Calm Respiratory: Yes: Regular, CTA Bilaterally Gastrointestinal: Yes: Normal Bowel Sounds, Soft Musculoskeletal: Yes: WNL Extremities: Yes: Other Wound/Incision: Yes: Dressing Dry and Intact Neurological: Yes: Alert, Oriented Psychiatric: Yes: Alert, Oriented Labs: CBC, BMP 09/18/19 05:25 09/18/19 05:25 INR, PTT INR 1.69 (0.83-1.09) H 09/13/19 05:45 Assessment/Plan Thoracolumbar spine wound infection/Abscess s/p I&D Anemia wound infection plan cx report noted i think i am going to advice to start her on zithro also if she has dirrhoea repeat stool and parasite
[2019-09-18] MEDS: SODIUM CHLORIDE 1,000 ML IV SCH (13:19)
[2019-09-18] MEDS ORDERED: cefTRIAXone SODIUM 1 GM VIAL ONE (13:24)
[2019-09-18] MEDS ORDERED: PT OWN MED DRAWER 7, Y5N ONE (13:24)
--- NOTE | 2019-09-18 13:31 | PN ---
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 Continue SHORTHAND TEACHER.
--- NOTE | 2019-09-18 17:46 | PN ---
Progress Note (short form) - Note Progress Note: Hospitalist Medicine c/o back pain. otherwise no complaint. for repeat T/L spine I&D w/wound vac exchange VS delayed primary closure Vitals 09/18/19 16:37 Pulse Rate 78 Respiratory 18 Rate Blood Pressure 145/56 L Physical Exam GENERAL: resting in bed, in NAD HEENT: NCAT, dry MM NECK: Trachea midline, full range of motion, supple. LUNGS: CTA b/l. decreased rep effort HEART: S1, S2 RRR. no r/m/g BACK: c/d/i dressing.+ wound vac, full canister ABDOMEN: soft, nontender , nondistended EXTREMITIES: no pedal edema. pulses intact NEUROLOGICAL: beef skinner 2-12 grossly intact. able to move UE, LE Laboratory Tests 09/18/19 09/18/19 05:25 05:25 WBC 9.4 Hgb 10.0 L Hct 30.0 L Plt Count 421 Sodium 138 Potassium 3.1 L Chloride 109 H Carbon Dioxide 18 L BUN 25.4 H Creatinine 4.5 H Est GFR (CKD-EPI)AfAm 10.73 Phosphorus 5.1 H AST 11 L Total Protein 4.4 L Albumin 1.5 L Microbiology 09/16/19 16:13 Back Gram Stain - Final 09/16/19 01:30 Stool Gram Stain - Final 09/16/19 01:30 Stool Clostridioides difficile Antigen - Final 09/16/19 01:30 Stool Clostridioides difficile Toxin Assay - Final 09/14/19 10:27 Back Gram Stain - Final 09/14/19 10:27 Back Wound Culture - Final NO AEROBIC OR ANAEROBIC GROWTH OBTAINED. 09/14/19 10:26 Back Gram Stain - Final 09/14/19 10:26 Back Wound Culture - Final NO AEROBIC OR ANAEROBIC GROWTH OBTAINED. 09/14/19 10:24 Back Gram Stain - Final 09/14/19 10:24 Back Wound Culture - Final NO AEROBIC OR ANAEROBIC GROWTH OBTAINED. 09/12/19 15:28 Blood - Peripheral Venous Blood Culture - Final NO GROWTH AFTER 5 DAYS INCUBATION 09/12/19 15:20 Blood - Peripheral Venous Blood Culture - Final NO GROWTH AFTER 5 DAYS INCUBATION 09/09/19 16:30 Back Gram Stain - Final 09/09/19 16:30 Back Wound Culture - Final Escherichia Coli Bacteroides Fragilis Campylobacter Gracilis 09/09/19 14:53 Urine - Urine - Catheterized Urine Culture - Final NO GROWTH OBTAINED 09/16/19 16:13 Back Wound Culture - Preliminary NO GROWTH OBTAINED AFTER 24 HOURS INCUBATION, REINCUBATED. Imaging 09/09/19: CXR: s/p anterior cervical fusion. ortho hardware in the lower thoracic, upper lumbosacral spine. cardiomegaly. uncoiled thoracic aorta. no evidence of pneumothorax or large pl effusion. no evidence of pulm edema. linear opacities are noted in the right mid lung zone atelectatic changes. 09/15/19: Renal sono: nonobstructing R renal calculus 1.1cm echogenic focus lower pole R kidney 09/15/19: Abd sono: fatty infiltration of enlarged liver, cholelithiasis, nonobstructing R renal calculus, R renal cyst Assessment/Plan 68 y/o F with no significant PMH who presents s/p L1-S1 posterior decompression & T11-S1 instrumented fusion (08/26/2019) now p/w wound infection. #s/p L1-S1 posterior decompression & T11-S1 instrumented fusion (08/26/2019) -s/p multiple I&D, for repeat washout, debridement thoracolumbar spine today -d/c zosyn. started on rocephin (09/18) -also on vanco, c. diff dosing. d/w ID -back wound cx (+) E. coli, bacteroides. await c+s -Maintain woundvac @ 125mmHg negative pressure therapy. -incentive spirometer -pain control: SHIPPING SUPPORT CLERK pump -rectal tube for decompression, cont per sx -ID: Dr. Tesfaye -Sx: Dr. Villa #R/o c. diff -with c. diff ag (+) however toxin (-) -started on vanc 125mg PO q6h prophylactically -f/u stool ova and parasite -d/w ID -ID: Dr. Tesfaye #F/E/N IV NS 100 cc/hr continue to follow lytes full liquid diet; NPO after MN for procedure tomorrow #PPX mechanical only- SCD/TEDs GI: protonix #Dispo ICU monitoring for repeat washout, debridement thoracolumbar spine today rest recs per sx team <Soha Reilly - Last Filed: 09/18/19 17:53> - Note Progress Note: Seen and examined; agree with above aside from as supplemented below by myself. Personally verified all historical information and yang PE findings. Independently reviewed all labs and diagnostics. I discussed the case at length with the resident and consulting services. All questions answered. Seen in ICU Seen and examined; no new complaints. Continuing abx, dignishield inserted. Discussed at length with patient and family who are not happy at the course of care. I explainted that we were doing all that is possible to keep her comfortable. GENERAL: The patient is awake, alert, and fully oriented, in no acute distress. HEAD: Normal with no signs of trauma. EYES: PERRL, extraocular movements intact, sclera anicteric, conjunctiva clear. No ptosis. ENT: Ears normal, nares patent, oropharynx clear without exudates, moist mucous membranes. NECK: Trachea midline, full range of motion, supple. LUNGS: Breath sounds equal, clear to auscultation bilaterally, no wheezes, no crackles, no accessory muscle use. HEART: Regular rate and rhythm, S1, S2 without murmur, rub or gallop. ABDOMEN: Soft, nontender, nondistended, normoactive bowel sounds EXTREMITIES: 2+ pulses, warm, well-perfused, no edema. Moves all 4 with normal strength. NEUROLOGICAL: Cranial nerves II through XII grossly intact. Normal speech, gait not observed. PSYCH: Normal mood, normal affect. SKIN: Warm, dry, normal turgor, no rashes or lesions noted. Post op wound dressings are c/d/i and wound vac is attached. Problems include: -Postoperative wound infection (apparently going for fifth debridement; will discuss with surgical services) -Cdif (no s/s worsening sepsis, abx per ID) -Hyponatremia (improved) -PANCHO (Nephrology consulted; prerenal vs. ATN [plateauing) -Acute blood loss anemia (sgy requests h/h be kept >10/30) -Acute on chronic back pain -Morbid obesity -hypoalbuminemia -elevated alk phos; normalized but with mild dilation of CBD on US. Non-urgent MRCP prior to DC. Not havign abdominal pain. -acute on chronic back pain s/p operative fixation -Nonobstructing R-renal calculus Full Code Continue SCDs GI px if continued NPO Dispo pending final abx course and postoperative healing. <Christopher Goodwin - Last Filed: 09/21/19 09:59>
[2019-09-18] MEDS ORDERED: POTASSIUM CHLORIDE ORAL LIQUID 20 MEQ/15 ML PO ONE (17:48)
[2019-09-18] MEDS ORDERED: SUCCINYLCHOLINE CHLORIDE 200 MG/10 ML SYRINGE ONE (19:27)
[2019-09-18] MEDS ORDERED: ROCURONIUM BROMIDE 50 MG/5 ML SYRINGE ONE (19:27)
[2019-09-18] MEDS ORDERED: PROPOFOL 20 ML ONE (19:27)
[2019-09-18] MEDS ORDERED: fentaNYL CITRATE 250 MCG/5 ML VIAL ONE (19:27)
[2019-09-18] MEDS ORDERED: BENZOIN TINCTURE SWABSTICK TP ONE ×2 (19:46→21:48)
--- NOTE | 2019-09-18 19:55 | PN ---
Progress Note (short form) - Note Progress Note: 68F s/p L1-S1 posterior decompression & T11-S1 instrumented fusion (08/26/2019) p/w 400cc epidural abscess (09/09/2019) now s/p I&D posterior thoracolumbar spine (x3) w/application wound vac (x2) POD #2. (+) Self reported disorientation (due to being bedbound and no change of environment) and depressed mood. Pain well controlled. No acute events overnight. Pt. denies overnight history of headaches, chest pain, shortness of breath, nausea, vomiting, chills, & sweats. (+) Baird; (+) Flatus; (+) BM/rectal tube. All labs and vitals reviewed. PE: AAO x 3, NAD. T/L-Spine: Incision, dressing C/D/I, woundvac intact & in place. B/L LE NV status at baseline. 68F s/p L1-S1 posterior decompression & T11-S1 instrumented fusion (08/26/2019) p/w 400cc epidural abscess (09/09/2019) now s/p I&D posterior thoracolumbar spine (x3) w/application wound vac (x2) POD #2. -NPO, IVF. -Plan to return to OR now for repeat T/L spine I&D w/wound vac exchange VS delayed primary closure. -Offload heals with rolled towels under ankles to avoid heel ulcers/pressure sores. -Log roll q2h/place on wedge pillows to avoid sacral decubitus ulcer formation. -Attentive perineal hygiene. -Pain medication: per anaesthesia team; STAMP MAKER if needed; NO NSAID's. -Maintain woundvac @ 125mmHg negative pressure therapy. -f/u OR culture stick specimens x 3 & microbiology wound culture speciation. -IV antibiotics (wound infection) and PO antibiotics (C. Diff infection) as per ID team. -f/u daily labs. -DVT PPx: -Mechanical only: VLADISLAV's, SCD's. -Incentive spirometry. -PT/OT/Rehab, OOB daily; OOBTC as tolerated daily. -WBAT B/L LE. -B/L UE & LE NV checks. -No heavy lifting (>5 lbs), bending or twisting x 6 months post op. -Care per ICU, ID, & medical hospitalist teams. -Will follow. Eliezer Villa MD (Orthopaedic Surgery).
[2019-09-18] MEDS ORDERED: VANCOMYCIN 1,000 MG VIAL (RESTRICTED TO ID ONLY) ONE ×2 (20:16→21:22)
[2019-09-18] MEDS ORDERED: GLYCOPYRROLATE 0.2 MG/1 ML VIAL ONE ×2 (21:11→21:12)
[2019-09-18] MEDS ORDERED: NEOSTIGMINE METHYLSULFATE 0.5 MG/1 ML - 10 ML MDV ONE (21:11)
[2019-09-18] MEDS ORDERED: ONDANSETRON 4 MG/2 ML VIAL ONE (21:53)
--- NOTE | 2019-09-18 22:47 | PN ---
Progress Note (short form) - Note Progress Note: 68F s/p L1-S1 posterior decompression & T11-S1 instrumented fusion (08/26/2019) p/w 400cc epidural abscess (09/09/2019) now s/p I&D posterior thoracolumbar spine with delayed primary closure POD #0. -Full liquid diet. -Out of bed to chair at least twice tomorrow. -PT/OT/Rehab, out of bed and ambulating with assistance. -WBAT B/L LE. -f/u drain output. -Offload heals with rolled towels under ankles to avoid heel ulcers/pressure sores. -Log roll q2h/place on wedge pillows to avoid sacral decubitus ulcer formation. -Attentive perineal hygiene. -Pain medication: per anaesthesia team; CONFIGURATION ENGINEER if needed; NO NSAID's. -Antibiotics (wound infection) and PO antibiotics (C. Diff infection) as per ID team. -f/u daily labs. -DVT PPx: -Mechanical only: VLADISLAV's, SCD's. -Incentive spirometry q5-10 min. -B/L UE & LE NV checks. -No heavy lifting (>5 lbs), bending or twisting x 6 months post op. -Care per ICU, ID, renal & medical hospitalist teams. -Discharge planning: . -Will follow. Eliezer Villa MD (Orthopaedic Surgery).
--- NOTE | 2019-09-18 22:48 | OP ---
Operative Note - Note: Operative Date: 09/18/19 Pre-Operative Diagnosis: Deep thoracolumbar spine wound infection. Operation: 1. I&D thoracolumbar spine. 2. Complex wound closure (30cm) Findings: -Healthy, bleeding granulation tissue overlying erector spinae muscles and dura. -Minimal fibrinous slough overlying erector spinae musculature, bone, subcutaneous tissues, and wound margins. -Paraspinal musculature soft, amenable to closure. Post-Operative Diagnosis: Same as Pre-op Surgeon: Eliezer Villa Automobile Mechanic: Elder Villa Anesthesiologist/LABORATORY MANAGER: Scooter Alexis Anesthesia: General Specimens Removed: None Estimated Blood Loss (mls): 100 Drains & Tubes with Location: 1 x deep & 1 x superficial HemoVac. Fluid Volume Replaced (mls): 800 (Crystalloid) Operative Report Dictated: Yes
[2019-09-18] MEDS: CHLORHEXIDINE GLUCONATE 4% CLEANSER FOR DECOLONIZATION TP SCH (22:57)
[2019-09-19] MEDS: KCL 10 MEQ IVPB 10 MEQ/100 ML INFUS.BAG IVPB SCH ×2 (00:09→01:25)
[2019-09-19] MEDS: VANCOMYCIN 250 MG/5 ML ORAL SOLUTION PO SCH ×5 (00:10→23:33)
--- NOTE | 2019-09-19 00:19 | PN ---
Progress Note (short form) - Note Progress Note: 68F s/p L1-S1 posterior decompression & T11-S1 instrumented fusion (08/26/2019) p/w 400cc epidural abscess (09/09/2019) now s/p I&D posterior thoracolumbar spine with delayed primary closure POD #0. -Full liquid diet. -Out of bed to chair at least twice tomorrow. -PT/OT/Rehab, out of bed and ambulating with assistance. -WBAT B/L LE. -f/u drain output. -Offload heals with rolled towels under ankles to avoid heel ulcers/pressure sores. -Log roll q2h/place on wedge pillows to avoid sacral decubitus ulcer formation. -Attentive perineal hygiene. -Pain medication: per anaesthesia team; PEDIATRIC RADIOLOGIST if needed; NO NSAID's. -Antibiotics (wound infection) and PO antibiotics (C. Diff infection) as per ID team. -f/u daily labs. -DVT PPx: -Mechanical only: VLADISLAV's, SCD's. -Incentive spirometry q5-10 min. -B/L UE & LE NV checks. -No heavy lifting (>5 lbs), bending or twisting x 6 months post op. -Care per ICU, ID, renal & medical hospitalist teams. -Discharge planning: . -Will follow. Eliezer Villa MD (Orthopaedic Surgery).
[2019-09-19] MEDS ORDERED: ONDANSETRON 4 MG/2 ML VIAL IVPUSH PRN (00:48)
[2019-09-19] MEDS ORDERED: BENZOCAINE/MENTH/CETYLPYRD CL 1 EACH LOZENGE MM PRN (00:48)
[2019-09-19] MEDS ORDERED: SODIUM CHLORIDE 1,000 ML IV SCH (00:48)
[2019-09-19] MEDS: HYDROmorphone *PCA* 10MG/50ML DISP.SYRIN PCA SCH ×2 (00:49→08:04)
[2019-09-19] MEDS: diazePAM 5 MG TABLET PO SCH ×3 (05:30→21:44)
[2019-09-19] MEDS: LACTOBACILLUS ACIDOPHILUS 1 TABLET PO SCH ×3 (05:30→21:44)
[2019-09-19 06:21] LABS: BASO % 0.4 % (0-2.0); HEMATOCRIT 30.5 % (32.4-45.2); HEMOGLOBIN 10.1 GM/dL (10.7-15.3); LYMPH % 5.2 % (8-40); MCH 27.3 pg (25.7-33.7); MCHC 33.2 g/dl (32.0-36.0); MEAN CELL VOLUME 82.3 fl (80-96); MEAN PLT VOLUME 6.5 fl (7.5-11.1); MONO % 2.4 % (3.8-10.2); PLATELET COUNT 396 K/MM3 (134-434); RBC 3.71 M/mm3 (3.60-5.2); RDW 15.6 % (11.6-15.6); WHITE BLOOD COUNT 11.9 K/mm3 (4.0-10.0)
[2019-09-19 06:32] LABS: ALBUMIN 1.5 g/dl (3.4-5.0); BILIRUBIN,TOTAL 0.2 mg/dL (0.2-1); BLOOD UREA NITROGEN 26.5 mg/dL (7-18); CALCIUM 8.1 mg/dL (8.5-10.1); CREATININE 4.5 mg/dL (0.55-1.3); TOT PROT 4.5 g/dl (6.4-8.2)
--- NOTE | 2019-09-19 07:27 | PN ---
Progress Note (short form) - Note Progress Note: Anesthesia Post Op Note Pt seen s/p GA for multi level lumbar lami wash out and primary closure Pt awake alert NAD denies n/v, puritis, no complaints reports good pain controll on TRIM ATTACHER VSS SpO2 99% on RA no apparent anesthesia complications continue TRIM ATTACHER Christiane Presley.
--- NOTE | 2019-09-19 08:00 | PN ---
Physical Exam: SUBJECTIVE: Patient seen and examined by the bedside. No acute overnight events , endorses lower back pain. OBJECTIVE: Vital Signs Period Temp Pulse Resp BP Sys/No Pulse Ox Last 24 Hr 98.1 F-100 F 74-99 12-20 129-160/54-80 95-96 GENERAL: AOX3 HEENT: Normal with no signs of trauma, EOMI, moist mucus membranes, trachea midline LUNGS: Clear B/L, no wheezes or crackles HEART: RRR, no murmurs or rubs BACK: Surgical bandage mid to lower back with wound vac, no erythema or discharge noted ABDOMEN: Soft, nontender, nondistended, rectal tube in place EXTREMITIES: No peripheral edema, pulses intact NEUROLOGICAL: AOx3, moves extremities, sensations intact PSYCH: Tearful, normal affect SKIN: Warm, dry, no rashes or lesions noted Laboratory Results - last 24 hr 09/17/19 09/19/19 09/19/19 05:30 05:30 05:30 WBC 11.9 H RBC 3.71 Hgb 10.1 L Hct 30.5 L MCV 82.3 MCH 27.3 MCHC 33.2 RDW 15.6 Plt Count 396 MPV 6.5 L Absolute Neuts (auto) 11.0 H Neutrophils % 92.0 H D Lymphocytes % 5.2 L D Monocytes % 2.4 L Eosinophils % 0.0 D Basophils % 0.4 Nucleated RBC % 0 Sodium 140 Potassium 4.0 Chloride 112 H Carbon Dioxide 15 L Anion Gap 13 BUN 26.5 H Creatinine 4.5 H Est GFR (CKD-EPI)AfAm 10.73 Est GFR (CKD-EPI)NonAf 9.26 Random Glucose 77 Calcium 8.1 L Total Bilirubin 0.2 AST 10 L ALT 12 L Alkaline Phosphatase 93 Total Protein 4.5 L Albumin 1.5 L RADHA Screen Negative Active Medications Generic Name Dose Route Start Last Admin Trade Name Freq PRN Reason Stop Dose Admin Benzocaine/Menthol 1 each 09/19/19 00:48 Cepacol Lozenge - MM PRN PRN SORE THROAT Chlorhexidine Gluconate 1 applic 09/19/19 22:00 Hibiclens For Decolonization - TP HS FARAZ Diazepam 5 mg 09/19/19 06:00 09/19/19 05:30 Valium - PO 5 mg Q8H FARAZ Administration Hydromorphone HCl 10 mg 09/19/19 00:48 09/19/19 00:49 Hydromorphone 10 Mg/50 Ml-Ns SUTURE POLISHER Not Given SUTURE POLISHER [facility] Protocol Ceftriaxone Sodium 1 gm/ 50 mls @ 100 mls/hr 09/19/19 10:00 Dextrose IVPB DAILY [facility] Protocol Sodium Chloride 1,000 mls @ 100 mls/hr 09/19/19 00:48 09/19/19 01:26 Normal Saline - IV 100 mls/hr ASDIR FARAZ Administration Lactobacillus Acidophilus 1 tab 09/19/19 06:00 09/19/19 05:30 Bacid - PO 1 tab TID FARAZ Administration Mupirocin 1 applic 09/19/19 10:00 Bactroban Ointment (For Decolonization) - NS 09/24/19 09:59 BID FARAZ Ondansetron HCl 4 mg 09/19/19 00:48 Zofran Injection IVPUSH Q6H PRN NAUSEA AND/OR VOMITING Pantoprazole Sodium 40 mg 09/19/19 10:00 Protonix Iv IVPUSH DAILY [facility] Vancomycin HCl 125 mg 09/19/19 06:00 09/19/19 05:31 Vancomycin Oral Solution PO 125 mg Q6HPO FARAZ Administration ASSESSMENT/PLAN: 68F with no significant PMH, history of multiple spinal surgeries: 08/26/19: L1-S1 posterior decompression & T11-S1 instrumented fusion 09/09/19: I&D posterior thoracolumbar spine 09/11/19: I&D with wound vac application 09/14/19: I&D with debridement thoracolumbar spine, exchanged wound vac 09/16/19: Repeat I&D 09/18/19: I&D with complex wound closure #Neuro - POD# 1 after washout and closure, 100ml blood loss with 800ml crystalloid replaced - AOx3 - Analgesia: SUTURE POLISHER, Valium - PT ordered #Cardio - No active issues #Pulm - Maintain O2 saturation >90% - Incentive spirometry #GI - C Diff positive, Vanco 125mg PO Q6H started 09/16 - Rectal tube in place since 09/13 #ID - ID recs: Started on Ceftriaxone, Zosyn D/Max, ova and parasites ordered - Wound cx 09/09: Campylobacter Gracilis, E coli, Bacteroides Fragilis - C Diff positive, Vanco 125mg PO Q6H started - WBC 9.4 -> 11.9 , Eosinophils 0.8 ->3.6 -> 0% - ESR 39 #Renal - Cr daily trend 1.1 -> 2.6 -> 3.5 -> 3.7 -> 4.0 -> 4.4 -> 4.5 -> 4.5 - Differential for worsening renal function: PANCHO/Hypoperfusion due to infection/ abcess vs. AIN from abx vs. hemodynamic injury hypoperfusion - Renal recs: Start Bicarb 650 mg PO TID, 1/2 NS - Baird in place #Prophylaxis - VLADISLAV, SCD - Protonix 40mg IV #FEN - / N/S @100 - Cl 112 - Full liquid diet as tolerated #Disposition - Repeat operation planned tomorrow Visit type - Emergency Visit Emergency Visit: No - New Patient This patient is new to me today: No - Critical Care Critical Care patient: Yes Total Critical Care Time (in minutes): 39 Critical Care Statement: The care of this patient involved high complexity decision making to prevent further life threatening deterioration of the patient 's condition and/or to evaluate & treat vital organ system(s) failure or risk of failure. ATTENDING PHYSICIAN STATEMENT I saw and evaluated the patient. I reviewed the resident's note and discussed the case with the resident. I agree with the resident's findings and plan as documented. SUBJECTIVE: OBJECTIVE: ASSESSMENT AND PLAN:
--- NOTE | 2019-09-19 08:30 | PN ---
Progress Note (short form) - Note Progress Note: Orthopedic surgery: Pt states that she is having pain. At her incision site. Vital Signs Period Temp Pulse Resp BP Sys/No Pulse Ox Last 24 Hr 98.1 F-100 F 74-99 12-20 129-160/54-80 95-96 Hemovac: 250ml serosangrenous FC: 1200ml yellow urine GEN: A&0x3, NAD CV: RRR Lungs: CTA b/l ABD:soft, non-distended, non-tender LE: no calf tenderness or swelling note b/l. VLADISLAV SCDS in place and working. CBC, BMP 09/19/19 05:30 09/19/19 05:30 A/p: 68 yo female s/p closure of lumbar wound/ POD#1 Full liquid diet as tolerated Continue surgical dressing/hemovac Transfuse for H&H below 10/30 Mechanical DVT ppx Spoke with nursing staff, called placed to PT for OOB to chair this am Pain management with ROLL BUCKER Continue po abi D/w Dr. Villa
[2019-09-19] MEDS ORDERED: cefTRIAXone SODIUM 1 GM VIAL ONE (09:11)
[2019-09-19] MEDS ORDERED: DEXTROSE 5%-WATER - 50 ML IVPB ONE (09:12)
[2019-09-19] MEDS: CEFTRIAXONE 1 GM in DEXTROSE 5%-WATER - 50 ML IVPB SCH (09:36)
[2019-09-19] MEDS: PANTOPRAZOLE SODIUM 40 MG VIAL IVPUSH SCH (09:36)
[2019-09-19] MEDS: MUPIROCIN 2% TOPICAL OINTMENT FOR DECOLONIZATION NS SCH ×2 (09:37→21:44)
[2019-09-19] MEDS ORDERED: MUPIROCIN 2% TOPICAL OINTMENT FOR DECOLONIZATION NS SCH (10:00)
[2019-09-19 10:16] LABS: ANISOCYTOSIS 1+; MACROCYTOSIS 0; PLATELET ESTIMATE NORMAL; TEAR DROP CELLS 1+
--- NOTE | 2019-09-19 11:43 | OP ---
Date of Operation: 09/18/2019 Surgeon: Eliezer Villa M.D. Continuing Education Specialist: Elder Villa M.D. Pre-Operative Diagnosis: Deep thoracolumbar spine infection. Post-Operative Diagnosis: Deep thoracolumbar spine infection. Surgical Procedure: 1. Incision, drainage, debridement, and irrigation deep lumbar spine wound abscess (subfascial). (21998) 2. Complex wound closure (30cm). (14311 x 4) Anesthesia: General endotracheal tube anesthesia. Position: Prone. Incision: Midline. Estimated Blood Loss: 100cc. Intravenous Fluid: 800cc crystalloid. Drains: 1 x superficial & 1 x deep HemoVac. Complications: None. Urine Output: See anesthesia record. Bacteriology: None. Closure: #1 & 0 PDS, 2-0 Nylon, skin darin. Indications: The patient is a 68-year-old female who was indicated for a incision, drainage, irrigation, and debridement of his/her posterior thoracolumbar spine wound to evacuate and treat local wound contamination. The patient was identified in the holding area by her arm band. A long discussion was held with the patient regarding the risks, benefits, and alternatives of the above-named procedure. The risks include, but are not limited to: Pain, bleeding, infection, damage to surrounding structures (including nerves, blood vessels, skin, ligaments, tendons, and bone), dysphagia, dysphonia, nerve palsy, wound complications, pseudarthrosis, failure of fusion, failure of hardware/implants/reduction, need for further surgery, blood clots, myocardial infarction, pulmonary embolism, cerebrovascular event, anesthesia complications, neurological injury, loss of function, and . Benefits as mentioned above. Alternatives include no surgery. All questions were answered. The patient understood and agreed to the procedure. Informed consent was obtained, witnessed, and verified. The patient was taken to the operating room after being seen by the anesthesia and nursing staff. Procedure: The patient was brought into the operating room, placed on the OR table and secured with a safety strap. Consent and the operative site was again verified with the patient and nursing and anesthesia staff. Anesthesia was then administered. A time-out was then done led by me, the attending surgeon. Following intubation, the patient excessively defecated loose stool. Once she was cleaned up, the patient was then safely placed in a prone position with all bony prominences well-padded on a Bandar frame with strict attention paid to maintenance of sagittal vertical alignment. The arms were placed on well-padded arm boards and maintained with standard forward flexion, abduction, and external rotation of the shoulders, and flexion of the elbows. Special attention was given to the safe positioning of the cervical spine. The patients eyes, and belly were all free. The table was placed in 5 degrees of reverse Trendelenburg position to avoid ophthalmic vein congestion. After the patient was placed in the prone position, she excessively defecated loose stool once again. The patient and all feces were meticulously cleaned up. The dehisced wound site was then prepped and draped in the standard sterile fashion using betadine prep and scrub, wiped off with alcohol, and Duraprep applied. Pre-operative imaging was available for intra-operative evaluation. Time-out was again done, and the case began. The entirety of the previously made thoracolumbar spine incision was opened. All Lautenbach #1 PDS sutures were removed. The previously applied WoundVac dressing and all sponges were removed. Healthy, bleeding granulation tissue was noted overlying the erector spinae muscles and dura. There was minimal fibrinous slough overlying erector spinae musculature, bone, subcutaneous tissues, and wound margins. The paraspinal musculature were soft and amenable to delayed primary closure. All hardware was exposed. The wound dimensions were measured as follows: Length: 30cm. Width: 10cm. Depth: 10cm. The wound was irrigated with normal saline solution. All soft tissues and hardware were and mechanically debrided using multiple sponges with betadine soap. The wound was then irrigated with 3L normal saline solution. The wound was filled with 50% normal saline and 50% betadine solution. The wound was soaked in dilution betadine solution for 3 minutes. The wound was then irrigated with another 3L normal saline solution. 1g Vancomycin powder was sprinkled over the deep soft tissue bed and 1g was also sprinkled over the superficial soft tissue bed. 1 deep (subfascial) and 1 superficial (supra-fascial) HemoVac drain tube was placed. Closure: With, hemostasis was assured, the superficial and deep tissues were approximated using #1 & 0 PDS monofilament sutures using Ajaynbbibiana sepsis suture technique. The skin was closed using a combination of 2-0 nylon sutures in vertical mattress fashion, along with skin darin. Care was taken not to suture in either of the drain tubes. This was demonstrated after the deep and superficial wounds were closed. This completed a complex, 4-layered wound closure of approximately 30cm. The skin was then cleaned, dried, and painted with DuraPrep. The incision was dressed with Xeroform and coverd with a Primapore adhesive Telfa island dressing. A sterile, compressive dressing was applied using 4x4 gauze pads. The wound was then sealed with adhesive Ioban. The drain was then put on negative pressure self-suction. Sponge and needle counts were correct at the end of the case, and I, the attending surgeon, was present and scrubbed throughout the case. The patient was then transferred to a supine position on a hopital bed. The patient was then extubated by the anesthesia staff without incident or complications and was then transferred to the recovery room in stable condition having tolerated the procedure well. Mihai [id number] MTDD
--- NOTE | 2019-09-19 11:54 | PN ---
Progress Note, Physician History of Present Illness: post op day 1 pain main issue - Current Medication List Current Medications: Active Medications Benzocaine/Menthol (Cepacol Lozenge -) 1 each MM PRN PRN PRN Reason: SORE THROAT Chlorhexidine Gluconate (Hibiclens For Decolonization -) 1 applic TP HS FARAZ Diazepam (Valium -) 5 mg PO Q8H [facility] Last Admin: 09/19/19 05:30 Dose: 5 mg Hydromorphone HCl (Hydromorphone 10 Mg/50 Ml-Ns) 10 mg PHYSICAL THERAPIST PHYSICAL THERAPIST [facility]; Protocol Last Admin: 09/19/19 08:04 Dose: 10 mg Ceftriaxone Sodium 1 gm/ (Dextrose) 50 mls @ 100 mls/hr IVPB DAILY [facility]; Protocol Last Admin: 09/19/19 09:36 Dose: 100 mls/hr Sodium Chloride (Normal Saline -) 1,000 mls @ 100 mls/hr IV ASDIR [facility] Last Admin: 09/19/19 01:26 Dose: 100 mls/hr Lactobacillus Acidophilus (Bacid -) 1 tab PO TID [facility] Last Admin: 09/19/19 05:30 Dose: 1 tab Mupirocin (Bactroban Ointment (For Decolonization) -) 1 applic NS BID [facility] Stop: 09/24/19 09:59 Last Admin: 09/19/19 09:37 Dose: 1 applic Ondansetron HCl (Zofran Injection) 4 mg IVPUSH Q6H PRN PRN Reason: NAUSEA AND/OR VOMITING Pantoprazole Sodium (Protonix Iv) 40 mg IVPUSH DAILY [facility] Last Admin: 09/19/19 09:36 Dose: 40 mg Sodium Bicarbonate (Sodium Bicarbonate -) 650 mg PO TID [facility] Vancomycin HCl (Vancomycin Oral Solution) 125 mg PO Q6HPO [facility] Last Admin: 09/19/19 11:18 Dose: 125 mg - Objective Vital Signs: Vital Signs Temperature 98.3 F 09/19/19 10:00 Pulse Rate 88 09/19/19 10:00 Respiratory Rate 18 09/19/19 10:00 Blood Pressure 143/56 L 09/19/19 10:00 O2 Sat by Pulse Oximetry (%) 98 09/19/19 10:00 Constitutional: Yes: Calm, Mild Distress, Obese Cardiovascular: Yes: S1, S2 Respiratory: Yes: Regular, CTA Bilaterally Gastrointestinal: Yes: Normal Bowel Sounds, Soft Musculoskeletal: Yes: WNL Extremities: Yes: Other Wound/Incision: Yes: Dressing Dry and Intact Neurological: Yes: Alert, Oriented Psychiatric: Yes: Alert, Oriented Labs: CBC, BMP 09/19/19 05:30 09/19/19 05:30 INR, PTT INR 1.69 (0.83-1.09) H 09/13/19 05:45 Assessment/Plan Thoracolumbar spine wound infection/Abscess s/p I&D Anemia wound infection plan continue current mgmt wound care rest as per the team and surgery
--- NOTE | 2019-09-19 12:04 | PN ---
Progress Note (short form) - Note Progress Note: Hospitalist Medicine s/p repeat T/L spine I&D w/wound vac exchange VS delayed primary closure. c/o cont'd lumbar pain. Vitals 09/19/19 10:00 Temperature 98.3 F Pulse Rate 88 Respiratory 18 Rate Blood Pressure 143/56 L Physical Exam GENERAL: resting in bed, in NAD HEENT: NCAT, moist MM NECK: Trachea midline, full range of motion, supple. LUNGS: CTA b/l. no accessory m usage HEART: S1, S2 RRR. no r/m/g BACK: unable to turn, limited ROM, +hemovac w/ serosang drainage ABDOMEN: soft, nontender , nondistended EXTREMITIES: no pedal edema. pulses intact NEUROLOGICAL: president and chief operating officer 2-12 grossly intact. however able to move UE, LE +tapia +rectal tube Laboratory Tests 09/19/19 09/19/19 05:30 05:30 WBC 11.9 H Hgb 10.1 L Hct 30.5 L Plt Count 396 Sodium 140 Potassium 4.0 Chloride 112 H Carbon Dioxide 15 L BUN 26.5 H Creatinine 4.5 H Calcium 8.1 L AST 10 L ALT 12 L Total Protein 4.5 L Albumin 1.5 L Microbiology 09/16/19 16:13 Back Gram Stain - Final 09/16/19 01:30 Stool Gram Stain - Final 09/16/19 01:30 Stool Clostridioides difficile Antigen - Final 09/16/19 01:30 Stool Clostridioides difficile Toxin Assay - Final 09/14/19 10:27 Back Gram Stain - Final 09/14/19 10:27 Back Wound Culture - Final NO AEROBIC OR ANAEROBIC GROWTH OBTAINED. 09/14/19 10:26 Back Gram Stain - Final 09/14/19 10:26 Back Wound Culture - Final NO AEROBIC OR ANAEROBIC GROWTH OBTAINED. 09/14/19 10:24 Back Gram Stain - Final 09/14/19 10:24 Back Wound Culture - Final NO AEROBIC OR ANAEROBIC GROWTH OBTAINED. 09/12/19 15:28 Blood - Peripheral Venous Blood Culture - Final NO GROWTH AFTER 5 DAYS INCUBATION 09/12/19 15:20 Blood - Peripheral Venous Blood Culture - Final NO GROWTH AFTER 5 DAYS INCUBATION 09/09/19 16:30 Back Gram Stain - Final 09/09/19 16:30 Back Wound Culture - Final Escherichia Coli Bacteroides Fragilis Campylobacter Gracilis 09/09/19 14:53 Urine - Urine - Catheterized Urine Culture - Final NO GROWTH OBTAINED 09/16/19 16:13 Back Wound Culture - Preliminary NO GROWTH OBTAINED AFTER 24 HOURS INCUBATION, REINCUBATED. Imaging 09/09/19: CXR: s/p anterior cervical fusion. ortho hardware in the lower thoracic, upper lumbosacral spine. cardiomegaly. uncoiled thoracic aorta. no evidence of pneumothorax or large pl effusion. no evidence of pulm edema. linear opacities are noted in the right mid lung zone atelectatic changes. 09/15/19: Renal sono: nonobstructing R renal calculus 1.1cm echogenic focus lower pole R kidney 09/15/19: Abd sono: fatty infiltration of enlarged liver, cholelithiasis, nonobstructing R renal calculus, R renal cyst Assessment/Plan 68 y/o F with no significant PMH who presents s/p L1-S1 posterior decompression & T11-S1 instrumented fusion (08/26/2019) now p/w wound infection. #s/p L1-S1 posterior decompression & T11-S1 instrumented fusion (08/26/2019) -s/p multiple I&D, most recent repeat washout, debridement thoracolumbar spine - PO day 0 -d/c zosyn. started on rocephin (09/18) -also on vanco, c. diff dosing. d/w ID -recent cx (-) -hemovac drain removal per sx -incentive spirometer -pain control: PARCEL POST ORDER CLERK pump -per sx, transfuse to H/H 08/14 -rectal tube for decompression, cont per sx -ID: Dr. Tesfaye -Sx: Dr. Villa #PANCHO vs. PANCHO on CKD -c.w IVF; NS 100 cc/hr -Fena 1.4% intrinsic could be ATN, AIN, GN. f/u u studies, anca -c/t monitor -c/w sodium bicarb -nephro: Dr. Loo #R/o c. diff -with c. diff ag (+) however toxin (-) -started on vanc 125mg PO q6h prophylactically -f/u stool ova and parasite -d/w ID -ID: Dr. Tesfaye #F/E/N IV 1/2 NS 100 cc/hr continue to follow lytes full liquid diet #PPX mechanical only- SCD/TEDs GI: protonix #Dispo ICU monitoring rest recs per sx team <Soha Reilly - Last Filed: 09/19/19 15:42> - Note Progress Note: Seen and examined; agree with above aside from as supplemented below by myself. Personally verified all historical information and yang PE findings. Independently reviewed all labs and diagnostics. I discussed the case at length with the resident and consulting services. All questions answered. Seen in ICU Seen and examined; no new complaints. Continues to have diarrhea. Pain is controlled. GENERAL: The patient is awake, alert, and fully oriented, in no acute distress. HEAD: Normal with no signs of trauma. EYES: PERRL, extraocular movements intact, sclera anicteric, conjunctiva clear. No ptosis. ENT: Ears normal, nares patent, oropharynx clear without exudates, moist mucous membranes. NECK: Trachea midline, full range of motion, supple. LUNGS: Breath sounds equal, clear to auscultation bilaterally, no wheezes, no crackles, no accessory muscle use. HEART: Regular rate and rhythm, S1, S2 without murmur, rub or gallop. ABDOMEN: Soft, nontender, nondistended, normoactive bowel sounds EXTREMITIES: 2+ pulses, warm, well-perfused, no edema. Moves all 4 with normal strength. NEUROLOGICAL: Cranial nerves II through XII grossly intact. Normal speech, gait not observed. PSYCH: Normal mood, normal affect. SKIN: Warm, dry, normal turgor, no rashes or lesions noted. Post op wound dressings are c/d/i and wound vac is attached. Problems include: -Postoperative wound infection (apparently going for fifth debridement; will discuss with surgical services) -Cdif (no s/s worsening sepsis, abx per ID) -Hyponatremia (improved) -PANCHO (Nephrology consulted; prerenal vs. ATN [plateauing) -Acute blood loss anemia (sgy requests h/h be kept >10/30) -Acute on chronic back pain -Morbid obesity -hypoalbuminemia -elevated alk phos; normalized but with mild dilation of CBD on US. Non-urgent MRCP prior to DC. Not havign abdominal pain. -acute on chronic back pain s/p operative fixation -Nonobstructing R-renal calculus Full Code Continue SCDs GI px if continued NPO Dispo pending final abx course and postoperative healing. <Christopher Goodwin - Last Filed: 09/21/19 10:00>
--- NOTE | 2019-09-19 12:22 | PN ---
Teaching Attending Note Name of Resident: Winston Knott ATTENDING PHYSICIAN STATEMENT I saw and evaluated the patient. I reviewed the resident's note and discussed the case with the resident. I agree with the resident's findings and plan as documented. SUBJECTIVE: Patient seen and examined in the ICU. Weeping. Upset about persistent pain and her overall condition. S/P wound closure yesterday. OBJECTIVE: Intake & Output 09/16/19 09/17/19 09/18/19 09/19/19 23:59 23:59 23:59 23:59 Intake Total 3050 1690 2950 1240 Output Total 900 1575 1600 475 Balance 2150 115 1350 765 Last Vital Signs Temp Pulse Resp BP Pulse Ox 98.3 F 88 18 143/56 L 98 09/19/19 10:00 09/19/19 10:00 09/19/19 10:00 09/19/19 10:00 09/19/19 10:00 Active Medications Benzocaine/Menthol (Cepacol Lozenge -) 1 each MM PRN PRN PRN Reason: SORE THROAT Chlorhexidine Gluconate (Hibiclens For Decolonization -) 1 applic TP HS [facility] Diazepam (Valium -) 5 mg PO Q8H [facility] Last Admin: 09/19/19 05:30 Dose: 5 mg Hydromorphone HCl (Hydromorphone 10 Mg/50 Ml-Ns) 10 mg CREDIT OPERATIONS PROCESSOR CREDIT OPERATIONS PROCESSOR [facility]; Protocol Last Admin: 09/19/19 08:04 Dose: 10 mg Ceftriaxone Sodium 1 gm/ (Dextrose) 50 mls @ 100 mls/hr IVPB DAILY [facility]; Protocol Last Admin: 09/19/19 09:36 Dose: 100 mls/hr Sodium Chloride (Normal Saline -) 1,000 mls @ 100 mls/hr IV ASDIR [facility] Last Admin: 09/19/19 01:26 Dose: 100 mls/hr Lactobacillus Acidophilus (Bacid -) 1 tab PO TID [facility] Last Admin: 09/19/19 05:30 Dose: 1 tab Mupirocin (Bactroban Ointment (For Decolonization) -) 1 applic NS BID [facility] Stop: 09/24/19 09:59 Last Admin: 09/19/19 09:37 Dose: 1 applic Ondansetron HCl (Zofran Injection) 4 mg IVPUSH Q6H PRN PRN Reason: NAUSEA AND/OR VOMITING Pantoprazole Sodium (Protonix Iv) 40 mg IVPUSH DAILY [facility] Last Admin: 09/19/19 09:36 Dose: 40 mg Sodium Bicarbonate (Sodium Bicarbonate -) 650 mg PO TID [facility] Vancomycin HCl (Vancomycin Oral Solution) 125 mg PO Q6HPO [facility] Last Admin: 09/19/19 11:18 Dose: 125 mg Gen: NAD at rest Heart: RRR Lung: decreased breath sounds at the bases Abd: soft, nontender Ext: no edema Laboratory Results - last 24 hr 09/17/19 09/18/19 09/19/19 05:30 05:25 05:30 WBC 11.9 H RBC 3.71 Hgb 10.1 L Hct 30.5 L MCV 82.3 MCH 27.3 MCHC 33.2 RDW 15.6 Plt Count 396 MPV 6.5 L Absolute Neuts (auto) 11.0 H Neutrophils % 92.0 H D Neutrophils % (Manual) 89.8 H Band Neutrophils % 1.0 Lymphocytes % 5.2 L D Lymphocytes % (Manual) 7.2 L Monocytes % 2.4 L Monocytes % (Manual) 1 L D Eosinophils % 0.0 D Eosinophils % (Manual) 0.0 D Basophils % 0.4 Basophils % (Manual) 0.0 Myelocytes % (Man) 0 Promyelocytes % (Man) 0 Blast Cells % (Manual) 0 Nucleated RBC % 0 Metamyelocytes 0 Hypochromia 0 Platelet Estimate Normal Polychromasia 0 Poikilocytosis 1+ Anisocytosis 1+ Microcytosis 1+ Macrocytosis 0 Tear Drop Cells 1+ Sodium Potassium Chloride Carbon Dioxide Anion Gap BUN Creatinine Est GFR (CKD-EPI)AfAm Est GFR (CKD-EPI)NonAf Random Glucose Calcium Total Bilirubin AST ALT Alkaline Phosphatase Total Protein Albumin RADHA Screen Negative Double Strand DNA Ab <1 09/19/19 05:30 WBC RBC Hgb Hct MCV MCH MCHC RDW Plt Count MPV Absolute Neuts (auto) Neutrophils % Neutrophils % (Manual) Band Neutrophils % Lymphocytes % Lymphocytes % (Manual) Monocytes % Monocytes % (Manual) Eosinophils % Eosinophils % (Manual) Basophils % Basophils % (Manual) Myelocytes % (Man) Promyelocytes % (Man) Blast Cells % (Manual) Nucleated RBC % Metamyelocytes Hypochromia Platelet Estimate Polychromasia Poikilocytosis Anisocytosis Microcytosis Macrocytosis Tear Drop Cells Sodium 140 Potassium 4.0 Chloride 112 H Carbon Dioxide 15 L Anion Gap 13 BUN 26.5 H Creatinine 4.5 H Est GFR (CKD-EPI)AfAm 10.73 Est GFR (CKD-EPI)NonAf 9.26 Random Glucose 77 Calcium 8.1 L Total Bilirubin 0.2 AST 10 L ALT 12 L Alkaline Phosphatase 93 Total Protein 4.5 L Albumin 1.5 L RADHA Screen Double Strand DNA Ab ASSESSMENT AND PLAN: Thoracolumbar spine wound infection/Abscess s/p I&D Acute Kidney Injury Anemia +C diff Ag - Local wound care per surgery - ABX per ID - Pain control - incentive spirometry - IVF - monitor urine output, creatinine - replete lytes - DVT prophylaxis - Further disposition per surgery Dr Patterson
[2019-09-19] MEDS: SODIUM BICARBONATE 650 MG TABLET PO SCH ×2 (13:15→21:45)
--- NOTE | 2019-09-19 13:16 | CONS ---
DATE OF CONSULTATION: 09/19/2019 PHYSICAL MEDICINE REHABILITATION REFERRING PHYSICIAN: Elder Villa MD HISTORY OF PRESENT ILLNESS: The patient is a 68-year-old woman with a past medical history of previous cervical spine fusion with instrumentation as well as a recent L5-S1 decompression with T11-S1 instrumentation and fusion performed on August 26, 2019, by Dr. Villa who was readmitted after rehabilitation stent at [facility] developing severe back pain, fever. Patient underwent workup and was found to have epidural abscess, taken back to the operating room on September 16 undergoing irrigation and debridement of the thoracolumbar spine. Patient's blood work on admission showed normal WBC 7.4, hemoglobin 10.6, normal platelet count. Her BUN was normal at 9.1, creatinine 0.5. INR elevated at 1.46. Patient did develop acute kidney injury. As of September 13, BUN increased to 17.2 and creatinine 2.6. As of today, BUN 26.5 and creatinine 4.5. Her potassium level had been low at 3.1, currently as of today's blood work is 4.0. Her WBCs are slightly elevated at 11.9, stable hemoglobin 10.1, platelet count normal 396. INR is elevated at 1.69. She is undergoing workup for acute kidney injury. Ultrasound of the abdomen and ultrasound of kidneys showed nonobstructive right renal calculus, no hydronephrosis. Chest x-ray showed both cervical as well as lower thoracic and lumbar hardware with some central congestion. Patient was started on physical therapy today, required max assist of 2. She is weightbearing as tolerated with no bending, twisting, or lifting more than 5 pounds for 6 months. Patient denies any other issues other than significant back pain and diffuse weakness. No numbness, tingling of the lower extremities. No radicular symptoms. No significant weakness, numbness, tingling in the upper limbs. REVIEW OF PAST MEDICAL AND SURGICAL HISTORY: As above. SOCIAL HISTORY: Lives in an apartment, 4-5 steps to enter. Premorbidly she ambulated with a straight cane and was limited to about a block and a half but could walk further if holding onto a shopping cart. Current function as above. REVIEW OF SYSTEMS: No lightheadedness or dizziness. No blurry vision, double vision, or change of vision. No nausea, vomiting, difficulty swallowing, difficulty chewing. No chest pain or shortness of breath. No abdominal discomfort. No bowel or bladder incontinence. Patient, again, complains of significant back pain but no numbness, tingling, or weakness in the upper extremities. Diffuse weakness of the lower extremities but no isolated weakness or numbness in the lower extremities. PHYSICAL EXAMINATION: General: Awake and alert. She is seen lying in bed in no acute distress. HEENT: She is normocephalic and atraumatic. Her extraocular muscles appear intact. She has no obvious facial weakness. Back: Limited cervical range. Unable to examine her lumbar spine at this time. Extremities: Show some edema distally in the lower extremities. She has sequential compression devices on both lower limbs but no isolated calf tenderness. Neuromuscular: Examination awake, alert, oriented x3. Cranial nerves II through XII are grossly intact. Good motor power in the upper extremities as well as distally in the lower extremities with 5/5 dorsiflexion and plantarflexion. She has at least 4/5 knee extensor strength. Hip girdle not fully tested due to supine position and recent lumbar fusion as well as significant back pain. Normal sensation to light touch in the upper and lower limbs. No gross arthritic change. Good joint stability. IMPRESSION: 1. Deficits in mobility, activities of daily living. 2. Status post recent L5-S1 decompression as well as T11-S1 instrumentation fusion, August 26, with postoperative epidural abscess status post irrigation and debridement, September 16. 3. Acute kidney injury. 4. Leukocytosis. 5. Status post hypokalemia. 6. Elevated risk for deep vein thrombosis due to immobility. 7. History of cervical fusion. 8. Elevated body mass index. 9. Increased risk for decubitus ulceration due to immobility and pain. PLAN/SUGGESTION: 1. Continue physical therapy for mobilization. Will discuss with Physical Therapy. 2. Weightbearing as tolerated. 3. No bending, twisting, lifting more than 5 pounds. 4. Medical followup regarding acute kidney injury. 5. Monitor potassium level closely. 6. Follow up with Infectious Disease. 7. Spine surgery followup. 8. Agree with SCDs. 9. Avoid heel and sacral pressure. Relief pressure q.2 hours as able. Monitor skin for any erythema or breakdown. 10. Will need rehab placement. 11. Dietary evaluation regarding elevated BMI. Thank you for this referral. ADRIAN GUERRERO M.D. [facility]/[id number]
--- NOTE | 2019-09-19 14:27 | PN ---
Progress Note, Physician History of Present Illness: Pt seen and examined at bedside. She is awake and appears comfortable. She denies shortness of breath. - Current Medication List Current Medications: Active Medications Benzocaine/Menthol (Cepacol Lozenge -) 1 each MM PRN PRN PRN Reason: SORE THROAT Chlorhexidine Gluconate (Hibiclens For Decolonization -) 1 applic TP HS [facility] Diazepam (Valium -) 5 mg PO Q8H [facility] Last Admin: 09/19/19 13:15 Dose: 5 mg Hydromorphone HCl (Hydromorphone 10 Mg/50 Ml-Ns) 10 mg RIDING INSTRUCTOR RIDING INSTRUCTOR [facility]; Protocol Last Admin: 09/19/19 08:04 Dose: 10 mg Ceftriaxone Sodium 1 gm/ (Dextrose) 50 mls @ 100 mls/hr IVPB DAILY [facility]; Protocol Last Admin: 09/19/19 09:36 Dose: 100 mls/hr Sodium Chloride (Normal Saline -) 1,000 mls @ 100 mls/hr IV ASDIR [facility] Last Admin: 09/19/19 01:26 Dose: 100 mls/hr Lactobacillus Acidophilus (Bacid -) 1 tab PO TID [facility] Last Admin: 09/19/19 13:14 Dose: 1 tab Mupirocin (Bactroban Ointment (For Decolonization) -) 1 applic NS BID [facility] Stop: 09/24/19 09:59 Last Admin: 09/19/19 09:37 Dose: 1 applic Ondansetron HCl (Zofran Injection) 4 mg IVPUSH Q6H PRN PRN Reason: NAUSEA AND/OR VOMITING Pantoprazole Sodium (Protonix Iv) 40 mg IVPUSH DAILY [facility] Last Admin: 09/19/19 09:36 Dose: 40 mg Sodium Bicarbonate (Sodium Bicarbonate -) 650 mg PO TID [facility] Last Admin: 09/19/19 13:15 Dose: 650 mg Vancomycin HCl (Vancomycin Oral Solution) 125 mg PO Q6HPO [facility] Last Admin: 09/19/19 11:18 Dose: 125 mg - Objective Vital Signs: Vital Signs Temperature 98.6 F 09/19/19 14:00 Pulse Rate 74 09/19/19 14:00 Respiratory Rate 12 09/19/19 14:00 Blood Pressure 136/49 L 09/19/19 14:00 O2 Sat by Pulse Oximetry (%) 98 09/19/19 10:00 Constitutional: Yes: Calm Eyes: Yes: Conjunctiva Clear HENT: Yes: Atraumatic Neck: Yes: Supple Cardiovascular: Yes: S1, S2 Respiratory: Yes: CTA Bilaterally Gastrointestinal: Yes: Soft, Abdomen, Obese Genitourinary: Yes: Baird Present Musculoskeletal: Yes: WNL Edema: LLE: Trace, RLE: Trace Neurological: Yes: Oriented Psychiatric: Yes: Oriented Labs: CBC, BMP 09/19/19 05:30 09/19/19 05:30 INR, PTT INR 1.69 (0.83-1.09) H 09/13/19 05:45 Problem List - Problems (1) PANCHO (acute kidney injury) Code(s): N17.9 - ACUTE KIDNEY FAILURE, UNSPECIFIED (2) Hypokalemia Code(s): E87.6 - HYPOKALEMIA (3) Wound infection after surgery Code(s): T81.49XA - INFECTION FOLLOWING A PROCEDURE, OTHER SURGICAL SITE, INIT (4) Hx of decompressive lumbar laminectomy Code(s): Z98.890 - OTHER SPECIFIED POSTPROCEDURAL STATES Assessment/Plan Current Medications Generic Name Dose Route Start Last Admin Trade Name Freq PRN Reason Stop Dose Admin Benzocaine/Menthol 1 each 09/19/19 00:48 Cepacol Lozenge - MM PRN PRN SORE THROAT Chlorhexidine Gluconate 1 applic 09/19/19 22:00 Hibiclens For Decolonization - TP HS [facility] Diazepam 5 mg 09/19/19 06:00 09/19/19 13:15 Valium - PO 5 mg Q8H [facility] Administration Hydromorphone HCl 10 mg 09/19/19 00:48 09/19/19 08:04 Hydromorphone 10 Mg/50 Ml-Ns RIDING INSTRUCTOR 10 mg RIDING INSTRUCTOR [facility] Administration Protocol Ceftriaxone Sodium 1 gm/ 50 mls @ 100 mls/hr 09/19/19 10:00 09/19/19 09:36 Dextrose IVPB 100 mls/hr DAILY [facility] Administration Protocol Sodium Chloride 1,000 mls @ 100 mls/hr 09/19/19 00:48 09/19/19 01:26 Normal Saline - IV 100 mls/hr ASDIR [facility] Administration Lactobacillus Acidophilus 1 tab 09/19/19 06:00 09/19/19 13:14 Bacid - PO 1 tab TID [facility] Administration Mupirocin 1 applic 09/19/19 10:00 09/19/19 09:37 Bactroban Ointment (For Decolonization) - NS 09/24/19 09:59 1 applic BID [facility] Administration Ondansetron HCl 4 mg 09/19/19 00:48 Zofran Injection IVPUSH Q6H PRN NAUSEA AND/OR VOMITING Pantoprazole Sodium 40 mg 09/19/19 10:00 09/19/19 09:36 Protonix Iv IVPUSH 40 mg DAILY [facility] Administration Sodium Bicarbonate 650 mg 09/19/19 14:00 09/19/19 13:15 Sodium Bicarbonate - PO 650 mg TID [facility] Administration Vancomycin HCl 125 mg 09/19/19 06:00 09/19/19 11:18 Vancomycin Oral Solution PO 125 mg Q6HPO [facility] Administration Laboratory Tests 09/17/19 09/18/19 09/18/19 05:30 05:25 05:25 EDUIN M-Clarence Pending RADHA Screen Negative c-ANCA Pending Proteinase 3 (PR3) Pending p-ANCA Pending Atypical p-ANCA Pending Myeloperoxidase Ab Pending Double Strand DNA Ab <1 Glomerular Base Memb Ab Pending 1. PANCHO 2. Spine wound infection 3. Hyponatremia in setting of decreased renal function now improved 4. hypokalemia 5. nephrolithiasis Plan - sales and merchandising representative is unchanged - repeat labs in am - start po bicarb for now - change fluids to 1/2 ns - follow serologies - neurosurgery on board - no indication for HD at this point
[2019-09-19] MEDS: SODIUM CHLORIDE 0.45% 1,000 ML IV SCH (15:50)
[2019-09-19 17:09] LABS: ATYPICAL pANCA <1:20 titer (Neg:<1:20); C-ANCA <1:20 titer (Neg:<1:20)
[2019-09-19] MEDS: CHLORHEXIDINE GLUCONATE 4% CLEANSER FOR DECOLONIZATION TP SCH (21:44)
[2019-09-19] MEDS ORDERED: CHLORHEXIDINE GLUCONATE 4% CLEANSER FOR DECOLONIZATION TP SCH (22:00)
[2019-09-20] MEDS: SODIUM BICARBONATE 650 MG TABLET PO SCH ×3 (05:09→21:17)
[2019-09-20] MEDS: VANCOMYCIN 250 MG/5 ML ORAL SOLUTION PO SCH ×3 (05:09→17:58)
[2019-09-20] MEDS: LACTOBACILLUS ACIDOPHILUS 1 TABLET PO SCH ×3 (05:09→21:17)
[2019-09-20] MEDS: diazePAM 5 MG TABLET PO SCH ×3 (05:09→21:18)
[2019-09-20 06:11] LABS: BASO % 0.8 % (0-2.0); EOS % 3.8 % (0-4.5); HEMATOCRIT 30.1 % (32.4-45.2); HEMOGLOBIN 9.9 GM/dL (10.7-15.3); LYMPH % 17.6 % (8-40); MCH 27.3 pg (25.7-33.7); MEAN CELL VOLUME 82.7 fl (80-96); MEAN PLT VOLUME 6.2 fl (7.5-11.1); MONO % 8.8 % (3.8-10.2); PLATELET COUNT 437 K/MM3 (134-434); RBC 3.64 M/mm3 (3.60-5.2); RDW 15.9 % (11.6-15.6)
[2019-09-20 06:38] LABS: ALBUMIN 1.6 g/dl (3.4-5.0); BILIRUBIN,TOTAL 0.2 mg/dL (0.2-1); BLOOD UREA NITROGEN 28.5 mg/dL (7-18); CALCIUM 8.4 mg/dL (8.5-10.1); CREATININE 4.4 mg/dL (0.55-1.3); MAGNESIUM 1.9 mg/dL (1.8-2.4); POTASSIUM 3.6 mmol/L (3.5-5.1); TOT PROT 4.6 g/dl (6.4-8.2)
--- NOTE | 2019-09-20 07:55 | PN ---
Progress Note (short form) - Note Progress Note: ORTHOPAEDIC SURGERY s/p repeat T/L spine I&D w/wound vac exchange. Continues to c/o incisional pain. Last Vital Signs Temp Pulse Resp BP Pulse Ox 97.7 F 87 24 H 136/64 100 09/20/19 06:00 09/20/19 06:00 09/20/19 06:00 09/20/19 06:00 09/19/19 22:00 CBC, BMP 09/20/19 05:40 09/20/19 05:40 24 hour Output 09/19/19 09/19/19 09/19/19 09/19/19 09/20/19 06:00 14:37 15:34 23:00 06:00 Hemovac 125 60 30 60 Baird 350 500 400 425 PE GEN: A&0x3, NAD CV: RRR Lungs: unlabored. 100% on RA. CTA bilat ABD: Soft, NT. ND. LE: no calf tenderness or swelling note b/l. VLADISLAV/SCDS bilat and working. Problem List - Problems (1) Wound infection after surgery Assessment/Plan: A/p: 68 yo female s/p closure of lumbar wound Advanced to Reg diet as tolerated Cont surgical dressing Trend/record hemovac output Monitor H/H & transfuse pRBC if drops below 10/30 Mechanical DVT ppx PT for OOB to chair Pain management with CONTENT STRATEGY LEAD Continue Vanco PO Code(s): T81.49XA - INFECTION FOLLOWING A PROCEDURE, OTHER SURGICAL SITE, INIT (2) Hx of decompressive lumbar laminectomy Code(s): Z98.890 - OTHER SPECIFIED POSTPROCEDURAL STATES
--- NOTE | 2019-09-20 08:00 | PN ---
Physical Exam: SUBJECTIVE: Patient seen and examined. Patient complains of back pain and states that she has been in pain since her PT session yesterday as she feels the Physical therapist was not gentle enough with her. Otherwise no acute events overnight. POD#2 from closure. OBJECTIVE: Vital Signs Period Temp Pulse Resp BP Sys/No Pulse Ox Last 24 Hr 97.7 F-98.6 F 74-88 12-24 133-150/48-75 95-100 GENERAL: AAOX3, no acute distress HEENT: Normal with no signs of trauma, EOMI, moist mucus membranes, trachea midline LUNGS: diminished breath sounds bilaterally, clear to auscultation, no wheezing , no accessory muscle use HEART: RRR, no murmur noted ABDOMEN: Soft, nontender, nondistended, normoactive bowel sounds EXTREMITIES: No peripheral edema, pulses intact NEUROLOGICAL: sensation intact throughout, normal speech, gait not observed SKIN: Warm, dry Laboratory Results - last 24 hr 09/16/19 09/17/19 09/18/19 01:30 05:30 05:25 WBC RBC Hgb Hct MCV MCH MCHC RDW Plt Count MPV Absolute Neuts (auto) Neutrophils % Neutrophils % (Manual) Band Neutrophils % Lymphocytes % Lymphocytes % (Manual) Monocytes % Monocytes % (Manual) Eosinophils % Eosinophils % (Manual) Basophils % Basophils % (Manual) Myelocytes % (Man) Promyelocytes % (Man) Blast Cells % (Manual) Nucleated RBC % Metamyelocytes Hypochromia Platelet Estimate Polychromasia Poikilocytosis Anisocytosis Microcytosis Macrocytosis Tear Drop Cells Sodium Potassium Chloride Carbon Dioxide Anion Gap BUN Creatinine Est GFR (CKD-EPI)AfAm Est GFR (CKD-EPI)NonAf Random Glucose Calcium Phosphorus Magnesium Total Bilirubin AST ALT Alkaline Phosphatase Total Protein Total Protein (PEP) 4.2 L Albumin Albumin (PEP) 1.9 L Globulin 2.3 Albumin/Globulin Ratio 0.8 Beta Globulins 0.6 L Stool Lactoferrin 2.76 EDUIN M-Clarence 0.3 H c-ANCA <1:20 Proteinase 3 (PR3) <3.5 p-ANCA <1:20 Atypical p-ANCA <1:20 Myeloperoxidase Ab <9.0 Double Strand DNA Ab 09/18/19 09/19/19 09/20/19 05:25 05:30 05:40 WBC 11.0 H RBC 3.64 Hgb 9.9 L Hct 30.1 L MCV 82.7 MCH 27.3 MCHC 33.0 RDW 15.9 H Plt Count 437 H MPV 6.2 L Absolute Neuts (auto) 7.6 Neutrophils % 69.0 D Neutrophils % (Manual) 89.8 H Band Neutrophils % 1.0 Lymphocytes % 17.6 D Lymphocytes % (Manual) 7.2 L Monocytes % 8.8 D Monocytes % (Manual) 1 L D Eosinophils % 3.8 D Eosinophils % (Manual) 0.0 D Basophils % 0.8 Basophils % (Manual) 0.0 Myelocytes % (Man) 0 Promyelocytes % (Man) 0 Blast Cells % (Manual) 0 Nucleated RBC % 0 Metamyelocytes 0 Hypochromia 0 Platelet Estimate Normal Polychromasia 0 Poikilocytosis 1+ Anisocytosis 1+ Microcytosis 1+ Macrocytosis 0 Tear Drop Cells 1+ Sodium Potassium Chloride Carbon Dioxide Anion Gap BUN Creatinine Est GFR (CKD-EPI)AfAm Est GFR (CKD-EPI)NonAf Random Glucose Calcium Phosphorus Magnesium Total Bilirubin AST ALT Alkaline Phosphatase Total Protein Total Protein (PEP) Albumin Albumin (PEP) Globulin Albumin/Globulin Ratio Beta Globulins Stool Lactoferrin EDUIN M-Clarence c-ANCA Proteinase 3 (PR3) p-ANCA Atypical p-ANCA Myeloperoxidase Ab Double Strand DNA Ab <1 09/20/19 05:40 WBC RBC Hgb Hct MCV MCH MCHC RDW Plt Count MPV Absolute Neuts (auto) Neutrophils % Neutrophils % (Manual) Band Neutrophils % Lymphocytes % Lymphocytes % (Manual) Monocytes % Monocytes % (Manual) Eosinophils % Eosinophils % (Manual) Basophils % Basophils % (Manual) Myelocytes % (Man) Promyelocytes % (Man) Blast Cells % (Manual) Nucleated RBC % Metamyelocytes Hypochromia Platelet Estimate Polychromasia Poikilocytosis Anisocytosis Microcytosis Macrocytosis Tear Drop Cells Sodium 139 Potassium 3.6 Chloride 109 H Carbon Dioxide 18 L Anion Gap 12 BUN 28.5 H Creatinine 4.4 H Est GFR (CKD-EPI)AfAm 11.02 Est GFR (CKD-EPI)NonAf 9.51 Random Glucose 76 Calcium 8.4 L Phosphorus 5.0 H Magnesium 1.9 Total Bilirubin 0.2 AST 13 L ALT 13 Alkaline Phosphatase 91 Total Protein 4.6 L Total Protein (PEP) Albumin 1.6 L Albumin (PEP) Globulin Albumin/Globulin Ratio Beta Globulins Stool Lactoferrin EDUIN M-Clarence c-ANCA Proteinase 3 (PR3) p-ANCA Atypical p-ANCA Myeloperoxidase Ab Double Strand DNA Ab Active Medications Generic Name Dose Route Start Last Admin Trade Name Freq PRN Reason Stop Dose Admin Benzocaine/Menthol 1 each 09/19/19 00:48 Cepacol Lozenge - MM PRN PRN SORE THROAT Chlorhexidine Gluconate 1 applic 09/19/19 22:00 09/19/19 21:44 Hibiclens For Decolonization - TP 1 applic HS FARAZ Administration Diazepam 5 mg 09/19/19 06:00 09/20/19 05:09 Valium - PO 5 mg Q8H [facility]AZ Administration Hydromorphone HCl 10 mg 09/19/19 00:48 09/19/19 08:04 Hydromorphone 10 Mg/50 Ml-Ns HOTEL HOUSEKEEPER 10 mg HOTEL HOUSEKEEPER FARAZ Administration Protocol Ceftriaxone Sodium 1 gm/ 50 mls @ 100 mls/hr 09/19/19 10:00 09/19/19 09:36 Dextrose IVPB 100 mls/hr DAILY [facility]ARAZ Administration Protocol Sodium Chloride 1,000 mls @ 100 mls/hr 09/19/19 15:00 09/19/19 15:50 1/2 Normal Saline IV 100 mls/hr ASDIR FARAZ Administration Lactobacillus Acidophilus 1 tab 09/19/19 06:00 09/20/19 05:09 Bacid - PO 1 tab TID FARAZ Administration Mupirocin 1 applic 09/19/19 10:00 09/19/19 21:44 Bactroban Ointment (For Decolonization) - NS 09/24/19 09:59 1 applic BID FARAZ Administration Ondansetron HCl 4 mg 09/19/19 00:48 Zofran Injection IVPUSH Q6H PRN NAUSEA AND/OR VOMITING Pantoprazole Sodium 40 mg 09/19/19 10:00 09/19/19 09:36 Protonix Iv IVPUSH 40 mg DAILY [facility] Administration Sodium Bicarbonate 650 mg 09/19/19 14:00 09/20/19 05:09 Sodium Bicarbonate - PO 650 mg TID FARAZ Administration Vancomycin HCl 125 mg 09/19/19 06:00 09/20/19 05:09 Vancomycin Oral Solution PO 125 mg Q6HPO FARAZ Administration ASSESSMENT/PLAN: 68F with no significant PMH, history of multiple spinal surgeries: 08/26/19: L1-S1 posterior decompression & T11-S1 instrumented fusion 09/09/19: I&D posterior thoracolumbar spine 09/11/19: I&D with wound vac application 09/14/19: I&D with debridement thoracolumbar spine, exchanged wound vac 09/16/19: Repeat I&D 09/18/19: I&D with complex wound closure POD#2 from washout and closure. #Neuro - POD# 2 after washout and closure - AAOx3 - Analgesia: HOTEL HOUSEKEEPER, Valium - Physical Therapy #Cardio - No active issues #Pulm - Maintain O2 saturation >90% - Incentive spirometry #GI - C Diff positive, Vanco 125mg PO Q6H started 09/16 - Rectal tube in place since 09/13 #ID - ID recs: Continue Ceftriaxone, Zosyn D/Max, ova and parasites ordered - Wound cx 09/09: Campylobacter Gracilis, E coli, Bacteroides Fragilis - C Diff positive, Vanco 125mg PO Q6H started - WBC at 11.0, afebrile, monitor #Renal - Cr daily trend 1.1 -> 2.6 -> 3.5 -> 3.7 -> 4.0 -> 4.4 -> 4.5 -> 4.5 -> 4.4 - Differential for worsening renal function: PANCHO/Hypoperfusion due to infection/ abcess vs. AIN from abx vs. hemodynamic injury hypoperfusion - Renal recs: Bicarb 650 mg PO TID, 1/2 NS - Baird in place #Heme - Heme/Onc consulted for M-spike detected on labs - M spike likely 2/2 infection/surgery/inflammation but differential includes MGUS/smoldering MM - recommended to repeat when clinically stable #Prophylaxis - VLADISLAV, SCD - Protonix 40mg IV #FEN - 1/2N/S @100mls/hr - monitor and replace lytes as needed - Full liquid diet, advance as tolerated #Disposition - Disposition as per surgery, stable for transfer to floors Visit type - Emergency Visit Emergency Visit: No - New Patient This patient is new to me today: No - Critical Care Critical Care patient: Yes Total Critical Care Time (in minutes): 36 Critical Care Statement: The care of this patient involved high complexity decision making to prevent further life threatening deterioration of the patient 's condition and/or to evaluate & treat vital organ system(s) failure or risk of failure. ATTENDING PHYSICIAN STATEMENT I saw and evaluated the patient. I reviewed the resident's note and discussed the case with the resident. I agree with the resident's findings and plan as documented. SUBJECTIVE: OBJECTIVE: ASSESSMENT AND PLAN:
[2019-09-20] MEDS ORDERED: DEXTROSE 5%-WATER - 50 ML IVPB ONE (09:08)
[2019-09-20] MEDS ORDERED: cefTRIAXone SODIUM 1 GM VIAL ONE (09:08)
--- NOTE | 2019-09-20 09:15 | PN ---
Progress Note (short form) - Note Progress Note: Pt has c/o incisional pain from the back closure - will continue with SHOULDER BONER for now. VSS, no anesthetic complications/issues
[2019-09-20] MEDS: PANTOPRAZOLE SODIUM 40 MG VIAL IVPUSH SCH (09:50)
[2019-09-20] MEDS: MUPIROCIN 2% TOPICAL OINTMENT FOR DECOLONIZATION NS SCH ×2 (09:50→21:28)
[2019-09-20] MEDS: CEFTRIAXONE 1 GM in DEXTROSE 5%-WATER - 50 ML IVPB SCH (09:50)
[2019-09-20 10:06] LABS: ANTIGLOMERULAR BASEMENT MEN.AB 3 units (0-20)
[2019-09-20 10:14] LABS: PLATELET ESTIMATE NORMAL
--- NOTE | 2019-09-20 10:55 | PN ---
Teaching Attending Note Name of Resident: Sherice Rodriguez ATTENDING PHYSICIAN STATEMENT I saw and evaluated the patient. I reviewed the resident's note and discussed the case with the resident. I agree with the resident's findings and plan as documented. SUBJECTIVE: Patient seen and examined in the ICU. Still upset about persistent pain and her overall condition and PT. No CP or SOB. OBJECTIVE: Intake & Output 09/17/19 09/18/19 09/19/19 09/20/19 23:59 23:59 23:59 23:59 Intake Total 1690 2950 1910 900 Output Total 1575 1600 1465 485 Balance 115 1350 445 415 Last Vital Signs Temp Pulse Resp BP Pulse Ox 97.7 F 82 13 137/87 99 09/20/19 06:00 09/20/19 08:00 09/20/19 08:24 09/20/19 08:00 09/20/19 08:24 Active Medications Benzocaine/Menthol (Cepacol Lozenge -) 1 each MM PRN PRN PRN Reason: SORE THROAT Chlorhexidine Gluconate (Hibiclens For Decolonization -) 1 applic TP HS [facility]AR[facility] Last Admin: 09/19/19 21:44 Dose: 1 applic Diazepam (Valium -) 5 mg PO Q8H FAR[facility] Last Admin: 09/20/19 05:09 Dose: 5 mg Hydromorphone HCl (Hydromorphone 10 Mg/50 Ml-Ns) 10 mg FOREIGN LANGUAGE INTERPRETER FOREIGN LANGUAGE INTERPRETER FARAZ; Protocol Last Admin: 09/19/19 08:04 Dose: 10 mg Ceftriaxone Sodium 1 gm/ (Dextrose) 50 mls @ 100 mls/hr IVPB DAILY [facility]; Protocol Last Admin: 09/20/19 09:50 Dose: 100 mls/hr Sodium Chloride (1/2 Normal Saline) 1,000 mls @ 100 mls/hr IV ASDIR [facility]AR[facility] Last Admin: 09/19/19 15:50 Dose: 100 mls/hr Lactobacillus Acidophilus (Bacid -) 1 tab PO TID [facility]AR[facility] Last Admin: 09/20/19 05:09 Dose: 1 tab Mupirocin (Bactroban Ointment (For Decolonization) -) 1 applic NS BID [facility]AR[facility] Stop: 09/24/19 09:59 Last Admin: 09/20/19 09:50 Dose: 1 applic Ondansetron HCl (Zofran Injection) 4 mg IVPUSH Q6H PRN PRN Reason: NAUSEA AND/OR VOMITING Pantoprazole Sodium (Protonix Iv) 40 mg IVPUSH DAILY [facility] Last Admin: 09/20/19 09:50 Dose: 40 mg Sodium Bicarbonate (Sodium Bicarbonate -) 650 mg PO TID [facility] Last Admin: 09/20/19 05:09 Dose: 650 mg Vancomycin HCl (Vancomycin Oral Solution) 125 mg PO Q6HPO [facility] Last Admin: 09/20/19 05:09 Dose: 125 mg Gen: NAD at rest Heart: RRR Lung: decreased breath sounds at the bases Abd: soft, nontender Ext: no edema Laboratory Results - last 24 hr 09/16/19 09/17/19 09/18/19 01:30 05:30 05:25 WBC RBC Hgb Hct MCV MCH MCHC RDW Plt Count MPV Absolute Neuts (auto) Neutrophils % Neutrophils % (Manual) Band Neutrophils % Lymphocytes % Lymphocytes % (Manual) Monocytes % Monocytes % (Manual) Eosinophils % Eosinophils % (Manual) Basophils % Basophils % (Manual) Myelocytes % (Man) Promyelocytes % (Man) Blast Cells % (Manual) Nucleated RBC % Metamyelocytes Platelet Estimate Sodium Potassium Chloride Carbon Dioxide Anion Gap BUN Creatinine Est GFR (CKD-EPI)AfAm Est GFR (CKD-EPI)NonAf Random Glucose Calcium Phosphorus Magnesium Total Bilirubin AST ALT Alkaline Phosphatase Total Protein Total Protein (PEP) 4.2 L Albumin Albumin (PEP) 1.9 L Globulin 2.3 Albumin/Globulin Ratio 0.8 Beta Globulins 0.6 L Stool Lactoferrin 2.76 EDUIN M-Clarence 0.3 H c-ANCA <1:20 Proteinase 3 (PR3) <3.5 p-ANCA <1:20 Atypical p-ANCA <1:20 Myeloperoxidase Ab <9.0 Glomerular Base Memb Ab 09/18/19 09/20/19 09/20/19 05:25 05:40 05:40 WBC 11.0 H RBC 3.64 Hgb 9.9 L Hct 30.1 L MCV 82.7 MCH 27.3 MCHC 33.0 RDW 15.9 H Plt Count 437 H MPV 6.2 L Absolute Neuts (auto) 7.6 Neutrophils % 69.0 D Neutrophils % (Manual) 65.3 Band Neutrophils % 1.0 Lymphocytes % 17.6 D Lymphocytes % (Manual) 9.5 D Monocytes % 8.8 D Monocytes % (Manual) 8 D Eosinophils % 3.8 D Eosinophils % (Manual) 5.3 H D Basophils % 0.8 Basophils % (Manual) 0.0 Myelocytes % (Man) 3 H D Promyelocytes % (Man) 0 Blast Cells % (Manual) 0 Nucleated RBC % 0 Metamyelocytes 0 Platelet Estimate Normal Sodium 139 Potassium 3.6 Chloride 109 H Carbon Dioxide 18 L Anion Gap 12 BUN 28.5 H Creatinine 4.4 H Est GFR (CKD-EPI)AfAm 11.02 Est GFR (CKD-EPI)NonAf 9.51 Random Glucose 76 Calcium 8.4 L Phosphorus 5.0 H Magnesium 1.9 Total Bilirubin 0.2 AST 13 L ALT 13 Alkaline Phosphatase 91 Total Protein 4.6 L Total Protein (PEP) Albumin 1.6 L Albumin (PEP) Globulin Albumin/Globulin Ratio Beta Globulins Stool Lactoferrin EDUIN M-Clarence c-ANCA Proteinase 3 (PR3) p-ANCA Atypical p-ANCA Myeloperoxidase Ab Glomerular Base Memb Ab 3 ASSESSMENT AND PLAN: Thoracolumbar spine wound infection/Abscess s/p I&D Acute Kidney Injury Anemia +C diff Ag - Local wound care per surgery - ABX per ID - Pain control - incentive spirometry - monitor renal function - replete lytes - DVT prophylaxis - Further disposition per surgery Dr Patterson
--- NOTE | 2019-09-20 11:32 | PN ---
Progress Note, Physician History of Present Illness: stable no new issues repeat cx showed negative cx - Current Medication List Current Medications: Active Medications Benzocaine/Menthol (Cepacol Lozenge -) 1 each MM PRN PRN PRN Reason: SORE THROAT Chlorhexidine Gluconate (Hibiclens For Decolonization -) 1 applic TP HS [facility] Last Admin: 09/19/19 21:44 Dose: 1 applic Diazepam (Valium -) 5 mg PO Q8H [facility] Last Admin: 09/20/19 05:09 Dose: 5 mg Hydromorphone HCl (Hydromorphone 10 Mg/50 Ml-Ns) 10 mg THERMAL INTELLIGENCE ANALYST THERMAL INTELLIGENCE ANALYST [facility]; Protocol Last Admin: 09/19/19 08:04 Dose: 10 mg Ceftriaxone Sodium 1 gm/ (Dextrose) 50 mls @ 100 mls/hr IVPB DAILY [facility]; Protocol Last Admin: 09/20/19 09:50 Dose: 100 mls/hr Sodium Chloride (1/2 Normal Saline) 1,000 mls @ 100 mls/hr IV ASDIR [facility] Last Admin: 09/19/19 15:50 Dose: 100 mls/hr Lactobacillus Acidophilus (Bacid -) 1 tab PO TID [facility] Last Admin: 09/20/19 05:09 Dose: 1 tab Mupirocin (Bactroban Ointment (For Decolonization) -) 1 applic NS BID [facility] Stop: 09/24/19 09:59 Last Admin: 09/20/19 09:50 Dose: 1 applic Ondansetron HCl (Zofran Injection) 4 mg IVPUSH Q6H PRN PRN Reason: NAUSEA AND/OR VOMITING Pantoprazole Sodium (Protonix Iv) 40 mg IVPUSH DAILY [facility] Last Admin: 09/20/19 09:50 Dose: 40 mg Sodium Bicarbonate (Sodium Bicarbonate -) 650 mg PO TID [facility] Last Admin: 09/20/19 05:09 Dose: 650 mg Vancomycin HCl (Vancomycin Oral Solution) 125 mg PO Q6HPO [facility] Last Admin: 09/20/19 05:09 Dose: 125 mg - Objective Vital Signs: Vital Signs Temperature 97.7 F 09/20/19 06:00 Pulse Rate 82 09/20/19 08:00 Respiratory Rate 13 09/20/19 08:24 Blood Pressure 137/87 09/20/19 08:00 O2 Sat by Pulse Oximetry (%) 99 09/20/19 08:24 Constitutional: Yes: No Distress, Calm Cardiovascular: Yes: S1, S2 Respiratory: Yes: Regular, CTA Bilaterally Gastrointestinal: Yes: Normal Bowel Sounds, Soft Musculoskeletal: Yes: WNL Extremities: Yes: Other Wound/Incision: Yes: Dressing Dry and Intact Neurological: Yes: Alert, Oriented Psychiatric: Yes: Alert, Oriented Labs: CBC, BMP 09/20/19 05:40 09/20/19 05:40 INR, PTT INR 1.69 (0.83-1.09) H 09/13/19 05:45 Assessment/Plan Thoracolumbar spine wound infection/Abscess s/p I&D Anemia wound infection plan continue current mgmt wound care rest as per the team and surgery
[2019-09-20] MEDS ORDERED: PT OWN MED DRAWER 7, Y5N ONE (12:33)
[2019-09-20] MEDS: HYDROmorphone *PCA* 10MG/50ML DISP.SYRIN PCA SCH (13:31)
--- NOTE | 2019-09-20 14:16 | CONSULT ---
Consultation: REQUESTING PROVIDER: Heme/Onc Service CONSULT REQUEST: We have been asked to medically evaluate this patient for M spike. HISTORY OF PRESENT ILLNESS: Pt is a 68 y/o F with no known medical problems who presented to hospital for complication/infection of surgical site of L1-S1 posterior decompression & T11- S1 instrumented fusion (08/26/2019). Heme/Onc was called to evaluate M-spike detected on labs. On my interview, pt states she is still not feeling well and was becoming tired from her prolonged medical course. She states she was healthy prior to this medical issue and did not have medical problems. She denied family history or blood problem or cancer. She denied smoking/drinking/drug use. She was not exposed to harsh chemicals in her work with [employer]. REVIEW OF SYSTEMS: CONSTITUTIONAL: Absent: fever, chills, diaphoresis, generalized weakness, malaise, loss of appetite, weight change HEENT: Absent: rhinorrhea, nasal congestion, throat pain, throat swelling, difficulty swallowing, mouth swelling, ear pain, eye pain, visual changes CARDIOVASCULAR: Absent: chest pain, syncope, palpitations, irregular heart rate, lightheadedness , peripheral edema RESPIRATORY: Absent: cough, shortness of breath, dyspnea with exertion, orthopnea, wheezing, stridor, hemoptysis GASTROINTESTINAL: Absent: abdominal pain, abdominal distension, nausea, vomiting, diarrhea, constipation, melena, hematochezia GENITOURINARY: Absent: dysuria, frequency, urgency, hesitancy, hematuria, flank pain, genital pain MUSCULOSKELETAL: back pain Absent: myalgia, arthralgia, joint swelling, , neck pain SKIN: Absent: rash, itching, pallor HEMATOLOGIC/IMMUNOLOGIC: Absent: easy bleeding, easy bruising, lymphadenopathy, frequent infections ENDOCRINE: Absent: unexplained weight gain, unexplained weight loss, heat intolerance, cold intolerance NEUROLOGIC: Absent: headache, focal weakness or paresthesias, dizziness, unsteady gait, seizure, mental status changes, bladder or bowel incontinence PSYCHIATRIC: Absent: anxiety, depression, suicidal or homicidal ideation, hallucinations. PHYSICAL EXAMINATION Vital Signs - 24 hr 09/19/19 09/19/19 09/19/19 16:00 16:04 18:00 Temperature 98 F Pulse Rate 78 88 80 Respiratory 14 20 20 Rate Blood Pressure 140/48 L 149/75 150/54 L O2 Sat by Pulse 99 Oximetry (%) 09/19/19 09/19/19 09/19/19 20:00 21:00 22:00 Temperature Pulse Rate 80 80 Respiratory 13 12 Rate Blood Pressure 146/60 150/52 L O2 Sat by Pulse 100 100 Oximetry (%) 09/20/19 09/20/19 09/20/19 00:00 02:00 04:00 Temperature Pulse Rate 81 80 81 Respiratory 12 12 20 Rate Blood Pressure 147/51 L 142/50 L 141/50 L O2 Sat by Pulse Oximetry (%) 09/20/19 09/20/19 09/20/19 06:00 07:59 08:00 Temperature 97.7 F Pulse Rate 87 96 H 82 Respiratory 24 H 13 13 Rate Blood Pressure 136/64 137/87 137/87 O2 Sat by Pulse 99 Oximetry (%) 09/20/19 09/20/19 08:24 13:31 Temperature Pulse Rate 86 Respiratory 13 13 Rate Blood Pressure 164/61 O2 Sat by Pulse 99 99 Oximetry (%) Gen: AAOx3, upset, no resp distress HEENT: NCAT, EOMI, PERRL, moist membranes Neck: supple, no jvd, no bruits Cardio: rrr, normal s1s2, no mrg Pulm: limited auscultation as pt couldn't sit up/roll Breast: no nodules/masses Abd: soft, slightly distended, nontender, no organomegally noted Ext: no edema noted, SCDs in place Laboratory Results - last 24 hr 09/16/19 09/17/19 09/18/19 01:30 05:30 05:25 WBC RBC Hgb Hct MCV MCH MCHC RDW Plt Count MPV Absolute Neuts (auto) Neutrophils % Neutrophils % (Manual) Band Neutrophils % Lymphocytes % Lymphocytes % (Manual) Monocytes % Monocytes % (Manual) Eosinophils % Eosinophils % (Manual) Basophils % Basophils % (Manual) Myelocytes % (Man) Promyelocytes % (Man) Blast Cells % (Manual) Nucleated RBC % Metamyelocytes Platelet Estimate Sodium Potassium Chloride Carbon Dioxide Anion Gap BUN Creatinine Est GFR (CKD-EPI)AfAm Est GFR (CKD-EPI)NonAf Random Glucose Calcium Phosphorus Magnesium Total Bilirubin AST ALT Alkaline Phosphatase Total Protein Total Protein (PEP) 4.2 L Albumin Albumin (PEP) 1.9 L Globulin 2.3 Albumin/Globulin Ratio 0.8 Beta Globulins 0.6 L Stool Lactoferrin 2.76 EDUIN M-Clarence 0.3 H c-ANCA <1:20 Proteinase 3 (PR3) <3.5 p-ANCA <1:20 Atypical p-ANCA <1:20 Myeloperoxidase Ab <9.0 Glomerular Base Memb Ab 09/18/19 09/20/19 09/20/19 05:25 05:40 05:40 WBC 11.0 H RBC 3.64 Hgb 9.9 L Hct 30.1 L MCV 82.7 MCH 27.3 MCHC 33.0 RDW 15.9 H Plt Count 437 H MPV 6.2 L Absolute Neuts (auto) 7.6 Neutrophils % 69.0 D Neutrophils % (Manual) 65.3 Band Neutrophils % 1.0 Lymphocytes % 17.6 D Lymphocytes % (Manual) 9.5 D Monocytes % 8.8 D Monocytes % (Manual) 8 D Eosinophils % 3.8 D Eosinophils % (Manual) 5.3 H D Basophils % 0.8 Basophils % (Manual) 0.0 Myelocytes % (Man) 3 H D Promyelocytes % (Man) 0 Blast Cells % (Manual) 0 Nucleated RBC % 0 Metamyelocytes 0 Platelet Estimate Normal Sodium 139 Potassium 3.6 Chloride 109 H Carbon Dioxide 18 L Anion Gap 12 BUN 28.5 H Creatinine 4.4 H Est GFR (CKD-EPI)AfAm 11.02 Est GFR (CKD-EPI)NonAf 9.51 Random Glucose 76 Calcium 8.4 L Phosphorus 5.0 H Magnesium 1.9 Total Bilirubin 0.2 AST 13 L ALT 13 Alkaline Phosphatase 91 Total Protein 4.6 L Total Protein (PEP) Albumin 1.6 L Albumin (PEP) Globulin Albumin/Globulin Ratio Beta Globulins Stool Lactoferrin EDUIN M-Clarence c-ANCA Proteinase 3 (PR3) p-ANCA Atypical p-ANCA Myeloperoxidase Ab Glomerular Base Memb Ab 3 Active Medications Generic Name Dose Route Start Last Admin Trade Name Freq PRN Reason Stop Dose Admin Benzocaine/Menthol 1 each 09/19/19 00:48 Cepacol Lozenge - MM PRN PRN SORE THROAT Chlorhexidine Gluconate 1 applic 09/19/19 22:00 09/19/19 21:44 Hibiclens For Decolonization - TP 1 applic HS [facility]AZ Administration Diazepam 5 mg 09/19/19 06:00 09/20/19 13:11 Valium - PO 5 mg Q8H [facility] Administration Hydromorphone HCl 10 mg 09/19/19 00:48 09/20/19 13:31 Hydromorphone 10 Mg/50 Ml-Ns DECISION ANALYST 10 mg DECISION ANALYST [facility] Administration Protocol Ceftriaxone Sodium 1 gm/ 50 mls @ 100 mls/hr 09/19/19 10:00 09/20/19 09:50 Dextrose IVPB 100 mls/hr DAILY [facility] Administration Protocol Sodium Chloride 1,000 mls @ 100 mls/hr 09/19/19 15:00 09/19/19 15:50 1/2 Normal Saline IV 100 mls/hr ASDIR [facility] Administration Lactobacillus Acidophilus 1 tab 09/19/19 06:00 09/20/19 13:11 Bacid - PO 1 tab TID [facility] Administration Mupirocin 1 applic 09/19/19 10:00 09/20/19 09:50 Bactroban Ointment (For Decolonization) - NS 09/24/19 09:59 1 applic BID [facility] Administration Ondansetron HCl 4 mg 09/19/19 00:48 Zofran Injection IVPUSH Q6H PRN NAUSEA AND/OR VOMITING Pantoprazole Sodium 40 mg 09/19/19 10:00 09/20/19 09:50 Protonix Iv IVPUSH 40 mg DAILY [facility] Administration Sodium Bicarbonate 650 mg 09/19/19 14:00 09/20/19 13:11 Sodium Bicarbonate - PO 650 mg TID [facility]AR[facility] Administration Vancomycin HCl 125 mg 09/19/19 06:00 09/20/19 12:35 Vancomycin Oral Solution PO 125 mg Q6HPO [facility] Administration ASSESSMENT/PLAN: Pt is a 68 y/o F with no known medical problems who presented to hospital for complication/infection of surgical site of L1-S1 posterior decompression & T11- S1 instrumented fusion (08/26/2019). Heme/Onc was called to evaluate M-spike detected on labs. M spike -DDx includes MGUS/smoldering MM -likely 2/2 infection/surgery/inflammation -no elevation in protein or calcium. -alb/glob ratio 0.8 -will get free kappa lambda light chains Dispo: We will continue to follow the patient. Thank you for this consultative opportunity. Visit type - Emergency Visit Emergency Visit: No - New Patient This patient is new to me today: Yes Date on this admission: 09/23/19 - Critical Care Critical Care patient: Yes Total Critical Care Time (in minutes): 30 Critical Care Statement: The care of this patient involved high complexity decision making to prevent further life threatening deterioration of the patient 's condition and/or to evaluate & treat vital organ system(s) failure or risk of failure. ATTENDING PHYSICIAN STATEMENT I saw and evaluated the patient. I reviewed the resident's note and discussed the case with the resident. I agree with the resident's findings and plan as documented. SUBJECTIVE: OBJECTIVE: ASSESSMENT AND PLAN:
--- NOTE | 2019-09-20 14:24 | PN ---
Progress Note, Physician History of Present Illness: Pt seen and examined at bedside. She is awake and appears comfortable. She denies shortness of breath. - Current Medication List Current Medications: Active Medications Benzocaine/Menthol (Cepacol Lozenge -) 1 each MM PRN PRN PRN Reason: SORE THROAT Chlorhexidine Gluconate (Hibiclens For Decolonization -) 1 applic TP HS [facility] Last Admin: 09/19/19 21:44 Dose: 1 applic Diazepam (Valium -) 5 mg PO Q8H [facility] Last Admin: 09/20/19 13:11 Dose: 5 mg Hydromorphone HCl (Hydromorphone 10 Mg/50 Ml-Ns) 10 mg QUALITY CONTROL LAB TECH QUALITY CONTROL LAB TECH [facility]; Protocol Last Admin: 09/20/19 13:31 Dose: 10 mg Ceftriaxone Sodium 1 gm/ (Dextrose) 50 mls @ 100 mls/hr IVPB DAILY [facility]; Protocol Last Admin: 09/20/19 09:50 Dose: 100 mls/hr Sodium Chloride (1/2 Normal Saline) 1,000 mls @ 100 mls/hr IV ASDIR [facility] Last Admin: 09/19/19 15:50 Dose: 100 mls/hr Lactobacillus Acidophilus (Bacid -) 1 tab PO TID [facility] Last Admin: 09/20/19 13:11 Dose: 1 tab Mupirocin (Bactroban Ointment (For Decolonization) -) 1 applic NS BID [facility] Stop: 09/24/19 09:59 Last Admin: 09/20/19 09:50 Dose: 1 applic Ondansetron HCl (Zofran Injection) 4 mg IVPUSH Q6H PRN PRN Reason: NAUSEA AND/OR VOMITING Pantoprazole Sodium (Protonix Iv) 40 mg IVPUSH DAILY [facility] Last Admin: 09/20/19 09:50 Dose: 40 mg Sodium Bicarbonate (Sodium Bicarbonate -) 650 mg PO TID [facility] Last Admin: 09/20/19 13:11 Dose: 650 mg Vancomycin HCl (Vancomycin Oral Solution) 125 mg PO Q6HPO [facility] Last Admin: 09/20/19 12:35 Dose: 125 mg - Objective Vital Signs: Vital Signs Temperature 97.7 F 09/20/19 06:00 Pulse Rate 86 09/20/19 13:31 Respiratory Rate 13 09/20/19 13:31 Blood Pressure 164/61 09/20/19 13:31 O2 Sat by Pulse Oximetry (%) 99 09/20/19 13:31 Constitutional: Yes: Calm Eyes: Yes: Conjunctiva Clear HENT: Yes: Atraumatic Neck: Yes: Supple Cardiovascular: Yes: S1, S2 Respiratory: Yes: CTA Bilaterally Gastrointestinal: Yes: Normal Bowel Sounds, Soft, Abdomen, Obese Genitourinary: Yes: Baird Present Edema: LLE: Trace, RLE: Trace Neurological: Yes: Oriented Psychiatric: Yes: Oriented Labs: CBC, BMP 09/20/19 05:40 09/20/19 05:40 INR, PTT INR 1.69 (0.83-1.09) H 09/13/19 05:45 Problem List - Problems (1) PANCHO (acute kidney injury) Code(s): N17.9 - ACUTE KIDNEY FAILURE, UNSPECIFIED (2) Hypokalemia Code(s): E87.6 - HYPOKALEMIA (3) Wound infection after surgery Code(s): T81.49XA - INFECTION FOLLOWING A PROCEDURE, OTHER SURGICAL SITE, INIT (4) Hx of decompressive lumbar laminectomy Code(s): Z98.890 - OTHER SPECIFIED POSTPROCEDURAL STATES Assessment/Plan Current Medications Generic Name Dose Route Start Last Admin Trade Name Freq PRN Reason Stop Dose Admin Benzocaine/Menthol 1 each 09/19/19 00:48 Cepacol Lozenge - MM PRN PRN SORE THROAT Chlorhexidine Gluconate 1 applic 09/19/19 22:00 09/19/19 21:44 Hibiclens For Decolonization - TP 1 applic HS [facility] Administration Diazepam 5 mg 09/19/19 06:00 09/20/19 13:11 Valium - PO 5 mg Q8H [facility] Administration Hydromorphone HCl 10 mg 09/19/19 00:48 09/20/19 13:31 Hydromorphone 10 Mg/50 Ml-Ns QUALITY CONTROL LAB TECH 10 mg QUALITY CONTROL LAB TECH [facility] Administration Protocol Ceftriaxone Sodium 1 gm/ 50 mls @ 100 mls/hr 09/19/19 10:00 09/20/19 09:50 Dextrose IVPB 100 mls/hr DAILY [facility] Administration Protocol Sodium Chloride 1,000 mls @ 100 mls/hr 09/19/19 15:00 09/19/19 15:50 1/2 Normal Saline IV 100 mls/hr ASDIR [facility] Administration Lactobacillus Acidophilus 1 tab 09/19/19 06:00 09/20/19 13:11 Bacid - PO 1 tab TID [facility] Administration Mupirocin 1 applic 09/19/19 10:00 09/20/19 09:50 Bactroban Ointment (For Decolonization) - NS 09/24/19 09:59 1 applic BID [facility] Administration Ondansetron HCl 4 mg 09/19/19 00:48 Zofran Injection IVPUSH Q6H PRN NAUSEA AND/OR VOMITING Pantoprazole Sodium 40 mg 09/19/19 10:00 09/20/19 09:50 Protonix Iv IVPUSH 40 mg DAILY [facility] Administration Sodium Bicarbonate 650 mg 09/19/19 14:00 09/20/19 13:11 Sodium Bicarbonate - PO 650 mg TID [facility] Administration Vancomycin HCl 125 mg 09/19/19 06:00 09/20/19 12:35 Vancomycin Oral Solution PO 125 mg Q6HPO [facility] Administration 1. PANCHO 2. Spine wound infection 3. Hyponatremia in setting of decreased renal function now improved 4. hypokalemia 5. 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
[2019-09-20] MEDS ORDERED: POTASSIUM CHLORIDE ORAL LIQUID 20 MEQ/15 ML PO ONE (14:25)
[2019-09-20] MEDS: SODIUM CHLORIDE 0.45% 1,000 ML IV SCH (15:55)
--- NOTE | 2019-09-20 17:25 | PN ---
Teaching Attending Note Name of Resident: Myron Cavanaugh ATTENDING PHYSICIAN STATEMENT I saw and evaluated the patient. I reviewed the resident's note and discussed the case with the resident. I agree with the resident's findings and plan as documented. SUBJECTIVE: Patient seen and examined 68 year old female underwent spinal surgery -08/26/19. Preo-op normal kidney function and Hct. Presents now with spinal infection. Has anemia with Hct-30%, reverse A/G ratio, PANCHO with creatinine 4.5 and M spike . Last Vital Signs Temp Pulse Resp BP Pulse Ox 98.1 F 93 H 17 132/80 99 09/20/19 16:00 09/20/19 16:00 09/20/19 16:00 09/20/19 16:00 09/20/19 14:01 HEENT: ANTONINO, EOM Intact Oropharynx: No thrush, No mucositis Neck: Supple Nodes: Without adenopathy Breasts: Without masses Cor: RSR, No murmurs, No gallops Lungs:poor inspiratory effort Abd: Soft, Normal bowel sounds, No organomegaly Ext:No significant edema Skin: No rashes, Integument intact, SCD CBC, BMP 09/20/19 05:40 09/20/19 05:40 "M" spike 0.3 Current Medications Generic Name Dose Route Start Last Admin Trade Name Freq PRN Reason Stop Dose Admin Benzocaine/Menthol 1 each 09/19/19 00:48 Cepacol Lozenge - MM PRN PRN SORE THROAT Chlorhexidine Gluconate 1 applic 09/19/19 22:00 09/19/19 21:44 Hibiclens For Decolonization - TP 1 applic HS [facility] Administration Diazepam 5 mg 09/19/19 06:00 09/20/19 13:11 Valium - PO 5 mg Q8H [facility] Administration Hydromorphone HCl 10 mg 09/19/19 00:48 09/20/19 13:31 Hydromorphone 10 Mg/50 Ml-Ns LIMEHOUSE WORKER 10 mg LIMEHOUSE WORKER [facility] Administration Protocol Ceftriaxone Sodium 1 gm/ 50 mls @ 100 mls/hr 09/19/19 10:00 09/20/19 09:50 Dextrose IVPB 100 mls/hr DAILY [facility] Administration Protocol Sodium Chloride 1,000 mls @ 100 mls/hr 09/19/19 15:00 09/20/19 15:55 1/2 Normal Saline IV 100 mls/hr ASDIR [facility] Administration Lactobacillus Acidophilus 1 tab 09/19/19 06:00 09/20/19 13:11 Bacid - PO 1 tab TID [facility] Administration Mupirocin 1 applic 09/19/19 10:00 09/20/19 09:50 Bactroban Ointment (For Decolonization) - NS 09/24/19 09:59 1 applic BID [facility] Administration Ondansetron HCl 4 mg 09/19/19 00:48 Zofran Injection IVPUSH Q6H PRN NAUSEA AND/OR VOMITING Pantoprazole Sodium 40 mg 09/19/19 10:00 09/20/19 09:50 Protonix Iv IVPUSH 40 mg DAILY [facility] Administration Sodium Bicarbonate 650 mg 09/20/19 22:00 Sodium Bicarbonate - PO BID [facility] Vancomycin HCl 125 mg 09/19/19 06:00 09/20/19 12:35 Vancomycin Oral Solution PO 125 mg Q6HPO [facility] Administration [id number]: Spinal post -op infection Anemia PANCHO "M" spike" Suspect reactive process but will check light chains and proteins. OBJECTIVE: ASSESSMENT AND PLAN: Patient seen a
--- NOTE | 2019-09-20 17:42 | PN ---
Progress Note (short form) - Note Progress Note: Hospitalist Medicine Pt upset concerning her sx. With lumbar pain. Feeling depressed Vitals 09/20/19 16:00 Temperature 98.1 F Pulse Rate 93 H Respiratory 17 Rate Blood Pressure 132/80 Physical Exam GENERAL: resting in bed, in NAD HEENT: NCAT, dry MM NECK: Trachea midline, full range of motion, supple. LUNGS: CTA b/l. no accessory m usage HEART: S1, S2 RRR. no r/m/g BACK: unable to turn, limited ROM ABDOMEN: soft, nontender , nondistended EXTREMITIES: no pedal edema. pulses intact NEUROLOGICAL: mower sharpener 2-12 grossly intact. however able to move UE, LE +tapia +rectal tube Laboratory Tests 09/20/19 09/20/19 05:40 05:40 WBC 11.0 H Hgb 9.9 L Hct 30.1 L Plt Count 437 H Sodium 139 Potassium 3.6 Chloride 109 H Carbon Dioxide 18 L Anion Gap 12 BUN 28.5 H Creatinine 4.4 H Random Glucose 76 Calcium 8.4 L Phosphorus 5.0 H AST 13 L ALT 13 Alkaline Phosphatase 91 Total Protein 4.6 L Albumin 1.6 L Microbiology 09/16/19 16:13 Back Gram Stain - Final 09/16/19 01:30 Stool Gram Stain - Final 09/16/19 01:30 Stool Clostridioides difficile Antigen - Final 09/16/19 01:30 Stool Clostridioides difficile Toxin Assay - Final 09/14/19 10:27 Back Gram Stain - Final 09/14/19 10:27 Back Wound Culture - Final NO AEROBIC OR ANAEROBIC GROWTH OBTAINED. 09/14/19 10:26 Back Gram Stain - Final 09/14/19 10:26 Back Wound Culture - Final NO AEROBIC OR ANAEROBIC GROWTH OBTAINED. 09/14/19 10:24 Back Gram Stain - Final 09/14/19 10:24 Back Wound Culture - Final NO AEROBIC OR ANAEROBIC GROWTH OBTAINED. 09/12/19 15:28 Blood - Peripheral Venous Blood Culture - Final NO GROWTH AFTER 5 DAYS INCUBATION 09/12/19 15:20 Blood - Peripheral Venous Blood Culture - Final NO GROWTH AFTER 5 DAYS INCUBATION 09/09/19 16:30 Back Gram Stain - Final 09/09/19 16:30 Back Wound Culture - Final Escherichia Coli Bacteroides Fragilis Campylobacter Gracilis 09/09/19 14:53 Urine - Urine - Catheterized Urine Culture - Final NO GROWTH OBTAINED 09/16/19 16:13 Back Wound Culture - Preliminary NO GROWTH OBTAINED AFTER 24 HOURS INCUBATION, REINCUBATED. Imaging 09/09/19: CXR: s/p anterior cervical fusion. ortho hardware in the lower thoracic, upper lumbosacral spine. cardiomegaly. uncoiled thoracic aorta. no evidence of pneumothorax or large pl effusion. no evidence of pulm edema. linear opacities are noted in the right mid lung zone atelectatic changes. 09/15/19: Renal sono: nonobstructing R renal calculus 1.1cm echogenic focus lower pole R kidney 09/15/19: Abd sono: fatty infiltration of enlarged liver, cholelithiasis, nonobstructing R renal calculus, R renal cyst Assessment/Plan 68 y/o F with no significant PMH who presents s/p L1-S1 posterior decompression & T11-S1 instrumented fusion (08/26/2019) now p/w wound infection. #s/p L1-S1 posterior decompression & T11-S1 instrumented fusion (08/26/2019) -s/p multiple I&D, most recent repeat washout, debridement thoracolumbar spine -d/c zosyn. started on rocephin (09/18) -also on vanco, c. diff dosing. d/w ID -recent cx (-) -incentive spirometer -pain control: HUMAN CAPITAL MANAGER pump -per sx, transfuse to H/H 10/30 -rectal tube for decompression, cont per sx -ID: Dr. Tesfaye -Sx: Dr. Villa #M spike -differentials - MGUS, MM, but likely 2/2 infection, inflammation -recommendation to repeat when clinically stable -f/u light chains, protein w/u -heme/onc: Dr. Finn #PANCHO vs. PANCHO on CKD -c/w IVF; NS 100 cc/hr -Fena 1.4% intrinsic could be ATN, AIN, GN. f/u u studies, anca -c/t monitor -c/w sodium bicarb -nephro: Dr. Loo #R/o c. diff -with c. diff ag (+) however toxin (-) -started on vanc 125mg PO q6h prophylactically -f/u stool ova and parasite -ID: Dr. Tesfaye #F/E/N IV 1/2 NS 100 cc/hr continue to follow lytes full liquid diet #PPX mechanical only- SCD/TEDs GI: protonix #Dispo ICU monitoring rest recs per sx team <Soha Reilly - Last Filed: 09/20/19 17:37> - Note Progress Note: Seen and examined; agree with above aside from as supplemented below by myself. Personally verified all historical information and yang PE findings. Independently reviewed all labs and diagnostics. I discussed the case at length with the resident and consulting services. All questions answered. Seen in ICU Seen and examined; no new complaints. Continues to have diarrhea. Pain is controlled. GENERAL: The patient is awake, alert, and fully oriented, in no acute distress. HEAD: Normal with no signs of trauma. EYES: PERRL, extraocular movements intact, sclera anicteric, conjunctiva clear. No ptosis. ENT: Ears normal, nares patent, oropharynx clear without exudates, moist mucous membranes. NECK: Trachea midline, full range of motion, supple. LUNGS: Breath sounds equal, clear to auscultation bilaterally, no wheezes, no crackles, no accessory muscle use. HEART: Regular rate and rhythm, S1, S2 without murmur, rub or gallop. ABDOMEN: Soft, nontender, nondistended, normoactive bowel sounds EXTREMITIES: 2+ pulses, warm, well-perfused, no edema. Moves all 4 with normal strength. NEUROLOGICAL: Cranial nerves II through XII grossly intact. Normal speech, gait not observed. PSYCH: Normal mood, normal affect. SKIN: Warm, dry, normal turgor, no rashes or lesions noted. Post op wound dressings are c/d/i and wound vac is attached. Problems include: -Postoperative wound infection (apparently going for fifth debridement; will discuss with surgical services) -Cdif (no s/s worsening sepsis, abx per ID; will complete course per their service,.) -Hyponatremia (improved) -PANCHO (Nephrology consulted; prerenal vs. ATN [plateauing) -Acute blood loss anemia (sgy requests h/h be kept >10/30) -Acute on chronic back pain -Morbid obesity -hypoalbuminemia -elevated alk phos; normalized but with mild dilation of CBD on US. Non-urgent MRCP prior to DC. Not havign abdominal pain. -acute on chronic back pain s/p operative fixation -Nonobstructing R-renal calculus Full Code Continue SCDs GI px if continued NPO Dispo pending final abx course and postoperative healing. Spoke with patient and family at length; they have the perception that when she was discharged the last time that contributed to the infection starting. I explained to them at length that this likely was not the causation and they did verbalize understanding. Overall they remain inpatient for ongoing treatemtn for the acute infetious diarrhea and posoperative wound infection. Continue abx per ID and will need PICC prior to DC for further care. Will need placement at rehab. <Christopher Goodwin - Last Filed: 09/27/19 13:03>
[2019-09-20] MEDS ORDERED: POTASSIUM CHLORIDE TABS 20 MEQ TABLET.ER (FP) PO ONE (19:25)
[2019-09-20] MEDS ORDERED: LABETALOL HCL 5 MG/1 ML (100MG/20 ML VIAL) IVPUSH ONE (19:59)
[2019-09-20] MEDS: CHLORHEXIDINE GLUCONATE 4% CLEANSER FOR DECOLONIZATION TP SCH (21:29)
[2019-09-21] MEDS: VANCOMYCIN 250 MG/5 ML ORAL SOLUTION PO SCH ×4 (01:00→18:39)
[2019-09-21] MEDS: HYDROmorphone *PCA* 10MG/50ML DISP.SYRIN PCA SCH ×2 (06:04→12:41)
[2019-09-21] MEDS: diazePAM 5 MG TABLET PO SCH ×3 (06:05→21:09)
[2019-09-21] MEDS: LACTOBACILLUS ACIDOPHILUS 1 TABLET PO SCH ×3 (06:05→21:09)
--- NOTE | 2019-09-21 06:53 | PN ---
Progress Note (short form) - Note Progress Note: 68F s/p L1-S1 posterior decompression & T11-S1 instrumented fusion (08/26/2019) p/w 400cc epidural abscess (09/09/2019) now s/p I&D posterior thoracolumbar spine w/delayed priary closure POD #2. Pain well controlled. No acute events overnight. Pt. denies overnight history of headaches, chest pain, shortness of breath, nausea, vomiting, chills, & sweats. (+) Baird; (+) Flatus; (+) BM/rectal tube. Stood up, walked, and sat with PT today. All labs and vitals reviewed. PE: AAO x 3, NAD. T/L-Spine: Incision, dressing C/D/I. B/L LE NV status at baseline. 68F s/p L1-S1 posterior decompression & T11-S1 instrumented fusion (08/26/2019) p/w 400cc epidural abscess (09/09/2019) now s/p I&D posterior thoracolumbar spine w/delayed priary closure POD #2. -Full liquid diet. -Out of bed to chair at least twice daily. -PT/OT/Rehab, out of bed and ambulating with assistance. -WBAT B/L LE. -f/u drain output. -Offload heals with rolled towels under ankles to avoid heel ulcers/pressure sores. -Log roll q2h/place on wedge pillows to avoid sacral decubitus ulcer formation. -Attentive perineal hygiene. -Pain medication: per anaesthesia team; BRANCH OFFICER if needed; transition to oral meds; NO NSAID's. -Antibiotics (wound infection) and PO antibiotics (C. Diff infection) as per ID team. -f/u daily labs. -DVT PPx: -Mechanical only: [id number]'s, SCD's. -Incentive spirometry q5-10 min. -B/L UE & LE NV checks. -No heavy lifting (>5 lbs), bending or twisting x 6 months post op. -Care per ICU, ID, renal, hematology & medical hospitalist teams. -Discharge planning: plan to d/c back to [facility] when medically fit. -Will follow. Eliezer Villa MD (Orthopaedic Surgery).
[2019-09-21 08:02] LABS: HEMATOCRIT 29.8 % (32.4-45.2); HEMOGLOBIN 9.7 GM/dL (10.7-15.3); MCH 26.8 pg (25.7-33.7); MCHC 32.5 g/dl (32.0-36.0); MEAN CELL VOLUME 82.7 fl (80-96); MEAN PLT VOLUME 6.6 fl (7.5-11.1); PLATELET COUNT 488 K/MM3 (134-434); RBC 3.61 M/mm3 (3.60-5.2); RDW 15.8 % (11.6-15.6); WHITE BLOOD COUNT 10.8 K/mm3 (4.0-10.0)
[2019-09-21 08:32] LABS: ALBUMIN 1.7 g/dl (3.4-5.0); BILIRUBIN,TOTAL 0.2 mg/dL (0.2-1); CALCIUM 8.1 mg/dL (8.5-10.1); CREATININE 4.2 mg/dL (0.55-1.3); MAGNESIUM 1.9 mg/dL (1.8-2.4); PHOSPHOROUS 4.8 mg/dL (2.5-4.9); POTASSIUM 3.8 mmol/L (3.5-5.1); TOT PROT 4.6 g/dl (6.4-8.2)
--- NOTE | 2019-09-21 08:36 | PN ---
Progress Note (short form) - Note Progress Note: RENAL Pt is awake and alert complains of being cold she is otherwise well has no pain and no nausea or vomiting Last Vital Signs Temp Pulse Resp BP Pulse Ox 98.9 F 92 H 19 175/65 H 99 09/21/19 06:00 09/21/19 08:00 09/21/19 08:00 09/21/19 08:00 09/20/19 20:07 appears acutely ill lungs clear anteriorly cvs s1s2 rr abd soft, not tender, no edema neuro a+ox3 skin no lesions noted CBC, BMP 09/21/19 06:15 Current Medications Generic Name Dose Route Start Last Admin Trade Name Freq PRN Reason Stop Dose Admin Benzocaine/Menthol 1 each 09/19/19 00:48 Cepacol Lozenge - MM PRN PRN SORE THROAT Chlorhexidine Gluconate 1 applic 09/19/19 22:00 09/20/19 21:29 Hibiclens For Decolonization - TP Not Given HS [facility] Diazepam 5 mg 09/19/19 06:00 09/21/19 06:05 Valium - PO 5 mg Q8H [facility] Administration Hydromorphone HCl 10 mg 09/19/19 00:48 09/21/19 06:04 Hydromorphone 10 Mg/50 Ml-Ns PAINTER INTERIOR FINISH Not Given PAINTER INTERIOR FINISH [facility] Protocol Ceftriaxone Sodium 1 gm/ 50 mls @ 100 mls/hr 09/19/19 10:00 09/20/19 09:50 Dextrose IVPB 100 mls/hr DAILY [facility] Administration Protocol Sodium Chloride 1,000 mls @ 100 mls/hr 09/19/19 15:00 09/20/19 15:55 1/2 Normal Saline IV 100 mls/hr ASDIR [facility] Administration Lactobacillus Acidophilus 1 tab 09/19/19 06:00 09/21/19 06:05 Bacid - PO 1 tab TID [facility] Administration Mupirocin 1 applic 09/19/19 10:00 09/20/19 21:28 Bactroban Ointment (For Decolonization) - NS 09/24/19 09:59 1 applic BID [facility] Administration Ondansetron HCl 4 mg 09/19/19 00:48 Zofran Injection IVPUSH Q6H PRN NAUSEA AND/OR VOMITING Pantoprazole Sodium 40 mg 09/19/19 10:00 09/20/19 09:50 Protonix Iv IVPUSH 40 mg DAILY [facility] Administration Sodium Bicarbonate 650 mg 09/20/19 22:00 09/20/19 21:17 Sodium Bicarbonate - PO 650 mg BID [facility] Administration Vancomycin HCl 125 mg 09/19/19 06:00 09/21/19 06:05 Vancomycin Oral Solution PO 125 mg Q6HPO [facility] Administration IMPRESSION 1. PANCHO post op- unclear as to etiology but its stable, perhaps ATN 2. Spine wound infection 3. Hyponatremia in setting of decreased renal function now improved 4. hypokalemia 5. nephrolithiasis Plan - keep monitoring renal function. No need for hd - repeat labs in am - cont fluids - avoid nephrotixins - follow serologies - neurosurgery on board -ID amnd neurosurgery follow up given sensation of cold MV
[2019-09-21] MEDS ORDERED: cefTRIAXone SODIUM 1 GM VIAL ONE (09:02)
[2019-09-21] MEDS ORDERED: PT OWN MED DRAWER 7, Y5N ONE (09:02)
[2019-09-21] MEDS ORDERED: DEXTROSE 5%-WATER - 50 ML IVPB ONE (09:02)
[2019-09-21] MEDS: SODIUM CHLORIDE 0.45% 1,000 ML IV SCH ×2 (09:30→22:30)
[2019-09-21] MEDS: CEFTRIAXONE 1 GM in DEXTROSE 5%-WATER - 50 ML IVPB SCH (09:31)
[2019-09-21] MEDS: PANTOPRAZOLE SODIUM 40 MG VIAL IVPUSH SCH (09:31)
[2019-09-21] MEDS: SODIUM BICARBONATE 650 MG TABLET PO SCH ×2 (09:31→21:09)
[2019-09-21] MEDS: MUPIROCIN 2% TOPICAL OINTMENT FOR DECOLONIZATION NS SCH ×2 (09:32→21:10)
--- NOTE | 2019-09-21 09:32 | PN ---
Physical Exam: SUBJECTIVE: Patient seen and examined. Complaining of pain from rectal tube. States that PT was more gental yesterday. Tearful on exam. OBJECTIVE: Vital Signs Period Temp Pulse Resp BP Sys/No Pulse Ox Last 24 Hr 98.1 F-98.9 F 86-100 10-03 103-187/53-85 99-99 GENERAL: The patient is awake, alert, and fully oriented, mild distress due to pain, tearful. HEAD: Normal with no signs of trauma. EYES: EOMI, no scleral icterus, no ptosis ENT: moist mucous membranes NECK: Trachea midline, supple LUNGS: diminished breath sound bilaterally, clear to auscultation, no wheezes, no crackles, no accessory muscle use HEART: Regular rate and rhythm, S1, S2 without murmur, rub or gallop. ABDOMEN: Soft, nontender, nondistended, normoactive bowel sounds, no guarding. EXTREMITIES: 2+ pulses, warm, well-perfused, no edema. NEUROLOGICAL: Normal speech, gait not observed. PSYCH: tearful affect SKIN: Warm, dry Laboratory Results - last 24 hr 09/18/19 09/20/19 09/21/19 05:25 05:40 06:15 WBC 10.8 H RBC 3.61 Hgb 9.7 L Hct 29.8 L MCV 82.7 MCH 26.8 MCHC 32.5 RDW 15.8 H Plt Count 488 H MPV 6.6 L Neutrophils % (Manual) 65.3 Band Neutrophils % 1.0 Lymphocytes % (Manual) 9.5 D Monocytes % (Manual) 8 D Eosinophils % (Manual) 5.3 H D Basophils % (Manual) 0.0 Myelocytes % (Man) 3 H D Promyelocytes % (Man) 0 Blast Cells % (Manual) 0 Metamyelocytes 0 Platelet Estimate Normal Sodium Potassium Chloride Carbon Dioxide Anion Gap BUN Creatinine Est GFR (CKD-EPI)AfAm Est GFR (CKD-EPI)NonAf Random Glucose Calcium Phosphorus Magnesium Total Bilirubin AST ALT Alkaline Phosphatase Total Protein Albumin Glomerular Base Memb Ab 3 09/21/19 06:15 WBC RBC Hgb Hct MCV MCH MCHC RDW Plt Count MPV Neutrophils % (Manual) Band Neutrophils % Lymphocytes % (Manual) Monocytes % (Manual) Eosinophils % (Manual) Basophils % (Manual) Myelocytes % (Man) Promyelocytes % (Man) Blast Cells % (Manual) Metamyelocytes Platelet Estimate Sodium 138 Potassium 3.8 Chloride 109 H Carbon Dioxide 17 L Anion Gap 12 BUN 29.0 H Creatinine 4.2 H Est GFR (CKD-EPI)AfAm 11.66 Est GFR (CKD-EPI)NonAf 10.06 Random Glucose 71 L Calcium 8.1 L Phosphorus 4.8 Magnesium 1.9 Total Bilirubin 0.2 AST 12 L ALT 14 Alkaline Phosphatase 89 Total Protein 4.6 L Albumin 1.7 L Glomerular Base Memb Ab Active Medications Generic Name Dose Route Start Last Admin Trade Name Freq PRN Reason Stop Dose Admin Amlodipine Besylate 5 mg 09/21/19 10:00 Norvasc - PO DAILY FARAZ Benzocaine/Menthol 1 each 09/19/19 00:48 Cepacol Lozenge - MM PRN PRN SORE THROAT Chlorhexidine Gluconate 1 applic 09/19/19 22:00 09/20/19 21:29 Hibiclens For Decolonization - TP Not Given HS FARAZ Diazepam 5 mg 09/19/19 06:00 09/21/19 06:05 Valium - PO 5 mg Q8H [facility] Administration Hydromorphone HCl 10 mg 09/19/19 00:48 09/21/19 06:04 Hydromorphone 10 Mg/50 Ml-Ns AGRICULTURIST Not Given AGRICULTURIST [facility]ARAZ Protocol Ceftriaxone Sodium 1 gm/ 50 mls @ 100 mls/hr 09/19/19 10:00 09/20/19 09:50 Dextrose IVPB 100 mls/hr DAILY FARAZ Administration Protocol Sodium Chloride 1,000 mls @ 100 mls/hr 09/19/19 15:00 09/20/19 15:55 1/2 Normal Saline IV 100 mls/hr ASDIR FARAZ Administration Lactobacillus Acidophilus 1 tab 09/19/19 06:00 09/21/19 06:05 Bacid - PO 1 tab TID FARAZ Administration Mupirocin 1 applic 09/19/19 10:00 09/20/19 21:28 Bactroban Ointment (For Decolonization) - NS 09/24/19 09:59 1 applic BID FARAZ Administration Ondansetron HCl 4 mg 09/19/19 00:48 Zofran Injection IVPUSH Q6H PRN NAUSEA AND/OR VOMITING Pantoprazole Sodium 40 mg 09/19/19 10:00 09/20/19 09:50 Protonix Iv IVPUSH 40 mg DAILY FARAZ Administration Sodium Bicarbonate 650 mg 09/20/19 22:00 09/20/19 21:17 Sodium Bicarbonate - PO 650 mg BID FARAZ Administration Vancomycin HCl 125 mg 09/19/19 06:00 09/21/19 06:05 Vancomycin Oral Solution PO 125 mg Q6HPO FARAZ Administration ASSESSMENT/PLAN: 68F with no significant PMH, history of multiple spinal surgeries: 08/26/19: L1-S1 posterior decompression & T11-S1 instrumented fusion 09/09/19: I&D posterior thoracolumbar spine 09/11/19: I&D with wound vac application 09/14/19: I&D with debridement thoracolumbar spine, exchanged wound vac 09/16/19: Repeat I&D 09/18/19: I&D with complex wound closure POD#3 from washout and closure. #Neuro - POD# 3 after washout and closure - AAOx3 - Analgesia: AGRICULTURIST, Valium - Physical Therapy - Started Lexapro as patient has been tearful and depressed on exam #Cardio - Hypertensive, started on Norvasc 5mg daily - Monitor BP #Pulm - Maintain O2 saturation >90% - Incentive spirometry #GI - C Diff positive, Vanco 125mg PO Q6H started 09/16 - Rectal tube in place since 09/13 #ID - ID recs: Continue Ceftriaxone, Zosyn D/Max, ova and parasites ordered - Wound cx 09/09: Campylobacter Gracilis, E coli, Bacteroides Fragilis - C Diff positive, Vanco 125mg PO Q6H started - WBC at 10.8, afebrile, monitor #Renal - Cr daily trend 1.1 -> 2.6 -> 3.5 -> 3.7 -> 4.0 -> 4.4 -> 4.5 -> 4.5 -> 4.4 - > 4.2 - Differential for worsening renal function: PANCHO/Hypoperfusion due to infection/ abcess vs. AIN from abx vs. hemodynamic injury hypoperfusion - Renal recs: Bicarb 650 mg PO TID, 1/2 NS - Baird in place #Heme - Heme/Onc consulted for M-spike detected on labs - M spike likely 2/2 infection/surgery/inflammation but differential includes MGUS/smoldering MM. Light chains and proteins labs ordered. - recommended to repeat when clinically stable #Prophylaxis - VLADISLAV, SCD - Protonix 40mg IV #FEN - 1/2N/S @100mls/hr - monitor and replace lytes as needed - Full liquid diet, advance as tolerated #Disposition - Disposition as per surgery, stable for transfer to floors Visit type - Emergency Visit Emergency Visit: No - New Patient This patient is new to me today: No - Critical Care Critical Care patient: Yes Total Critical Care Time (in minutes): 36 Critical Care Statement: The care of this patient involved high complexity decision making to prevent further life threatening deterioration of the patient 's condition and/or to evaluate & treat vital organ system(s) failure or risk of failure. ATTENDING PHYSICIAN STATEMENT I saw and evaluated the patient. I reviewed the resident's note and discussed the case with the resident. I agree with the resident's findings and plan as documented. SUBJECTIVE: OBJECTIVE: ASSESSMENT AND PLAN:
--- NOTE | 2019-09-21 09:49 | PN ---
Teaching Attending Note Name of Resident: Sherice Rodriguez ATTENDING PHYSICIAN STATEMENT I saw and evaluated the patient. I reviewed the resident's note and discussed the case with the resident. I agree with the resident's findings and plan as documented. SUBJECTIVE: Patient seen and examined in the ICU. Still upset about overall condition. No CP or SOB. OBJECTIVE: Intake & Output 09/18/19 09/19/19 09/20/19 09/21/19 23:59 23:59 23:59 23:59 Intake Total 2950 1910 2350 1200 Output Total 1600 1465 1865 1200 Balance 1350 445 485 0 Last Vital Signs Temp Pulse Resp BP Pulse Ox 98.9 F 92 H 19 175/65 H 99 09/21/19 06:00 09/21/19 08:00 09/21/19 08:00 09/21/19 08:00 09/20/19 20:07 Active Medications Amlodipine Besylate (Norvasc -) 5 mg PO DAILY [facility]ARAZ Benzocaine/Menthol (Cepacol Lozenge -) 1 each MM PRN PRN PRN Reason: SORE THROAT Chlorhexidine Gluconate (Hibiclens For Decolonization -) 1 applic TP HS [facility] Last Admin: 09/20/19 21:29 Dose: Not Given Diazepam (Valium -) 5 mg PO Q8H FARAZ Last Admin: 09/21/19 06:05 Dose: 5 mg Hydromorphone HCl (Hydromorphone 10 Mg/50 Ml-Ns) 10 mg TECHNICIAN SUBMARINE CABLE EQUIPMENT TECHNICIAN SUBMARINE CABLE EQUIPMENT FARAZ; Protocol Last Admin: 09/21/19 06:04 Dose: Not Given Ceftriaxone Sodium 1 gm/ (Dextrose) 50 mls @ 100 mls/hr IVPB DAILY FARAZ; Protocol Last Admin: 09/21/19 09:31 Dose: 100 mls/hr Sodium Chloride (1/2 Normal Saline) 1,000 mls @ 100 mls/hr IV ASDIR FARAZ Last Admin: 09/21/19 09:30 Dose: 100 mls/hr Lactobacillus Acidophilus (Bacid -) 1 tab PO TID FARAZ Last Admin: 09/21/19 06:05 Dose: 1 tab Mupirocin (Bactroban Ointment (For Decolonization) -) 1 applic NS BID [facility]ARAZ Stop: 09/24/19 09:59 Last Admin: 09/21/19 09:32 Dose: 1 applic Ondansetron HCl (Zofran Injection) 4 mg IVPUSH Q6H PRN PRN Reason: NAUSEA AND/OR VOMITING Pantoprazole Sodium (Protonix Iv) 40 mg IVPUSH DAILY [facility] Last Admin: 09/21/19 09:31 Dose: 40 mg Sodium Bicarbonate (Sodium Bicarbonate -) 650 mg PO BID [facility] Last Admin: 09/21/19 09:31 Dose: 650 mg Vancomycin HCl (Vancomycin Oral Solution) 125 mg PO Q6HPO [facility] Last Admin: 09/21/19 06:05 Dose: 125 mg Gen: NAD at rest Heart: RRR Lung: decreased breath sounds at the bases Abd: soft, nontender Ext: no edema Laboratory Results - last 24 hr 09/18/19 09/20/19 09/21/19 05:25 05:40 06:15 WBC 10.8 H RBC 3.61 Hgb 9.7 L Hct 29.8 L MCV 82.7 MCH 26.8 MCHC 32.5 RDW 15.8 H Plt Count 488 H MPV 6.6 L Neutrophils % (Manual) 65.3 Band Neutrophils % 1.0 Lymphocytes % (Manual) 9.5 D Monocytes % (Manual) 8 D Eosinophils % (Manual) 5.3 H D Basophils % (Manual) 0.0 Myelocytes % (Man) 3 H D Promyelocytes % (Man) 0 Blast Cells % (Manual) 0 Metamyelocytes 0 Platelet Estimate Normal Sodium Potassium Chloride Carbon Dioxide Anion Gap BUN Creatinine Est GFR (CKD-EPI)AfAm Est GFR (CKD-EPI)NonAf Random Glucose Calcium Phosphorus Magnesium Total Bilirubin AST ALT Alkaline Phosphatase Total Protein Albumin Glomerular Base Memb Ab 3 09/21/19 06:15 WBC RBC Hgb Hct MCV MCH MCHC RDW Plt Count MPV Neutrophils % (Manual) Band Neutrophils % Lymphocytes % (Manual) Monocytes % (Manual) Eosinophils % (Manual) Basophils % (Manual) Myelocytes % (Man) Promyelocytes % (Man) Blast Cells % (Manual) Metamyelocytes Platelet Estimate Sodium 138 Potassium 3.8 Chloride 109 H Carbon Dioxide 17 L Anion Gap 12 BUN 29.0 H Creatinine 4.2 H Est GFR (CKD-EPI)AfAm 11.66 Est GFR (CKD-EPI)NonAf 10.06 Random Glucose 71 L Calcium 8.1 L Phosphorus 4.8 Magnesium 1.9 Total Bilirubin 0.2 AST 12 L ALT 14 Alkaline Phosphatase 89 Total Protein 4.6 L Albumin 1.7 L Glomerular Base Memb Ab ASSESSMENT AND PLAN: Thoracolumbar spine wound infection/Abscess s/p I&D Acute Kidney Injury Anemia +C diff Ag - Local wound care per surgery - ABX per ID - Pain control - incentive spirometry - monitor renal function - replete lytes - DVT prophylaxis - Further disposition per surgery - Trial of Lexapro Dr Patterson
[2019-09-21] MEDS ORDERED: amLODIPine BESYLATE 5 MG TABLET (FP) PO SCH (10:00)
--- NOTE | 2019-09-21 12:13 | PN ---
Physical Exam: SUBJECTIVE: Patient seen and examined. Complaining of pain at the site of tapia insertion. Overal uncomfortable with the pain and tearful. States her PT session was better yesterday. OBJECTIVE: Vital Signs Period Temp Pulse Resp BP Sys/No Pulse Ox Last 24 Hr 98.1 F-98.9 F 86-100 10-03 103-187/53-100 96-99 GENERAL: The patient is awake, alert, and fully oriented NECK: supple LUNGS: Breath sounds equal, clear to auscultation bilaterally, no wheezes, no crackles, no accessory muscle use. HEART: Regular rate and rhythm, S1, S2 without murmur ABDOMEN: Soft, nontender, + obese, normoactive bowel sounds EXTREMITIES: 2+ pulses, warm no edema SKIN: Warm, dry Laboratory Results - last 24 hr 09/21/19 09/21/19 06:15 06:15 WBC 10.8 H RBC 3.61 Hgb 9.7 L Hct 29.8 L MCV 82.7 MCH 26.8 MCHC 32.5 RDW 15.8 H Plt Count 488 H MPV 6.6 L Sodium 138 Potassium 3.8 Chloride 109 H Carbon Dioxide 17 L Anion Gap 12 BUN 29.0 H Creatinine 4.2 H Est GFR (CKD-EPI)AfAm 11.66 Est GFR (CKD-EPI)NonAf 10.06 Random Glucose 71 L Calcium 8.1 L Phosphorus 4.8 Magnesium 1.9 Total Bilirubin 0.2 AST 12 L ALT 14 Alkaline Phosphatase 89 Total Protein 4.6 L Albumin 1.7 L Active Medications Generic Name Dose Route Start Last Admin Trade Name Freq PRN Reason Stop Dose Admin Amlodipine Besylate 5 mg 09/21/19 10:00 09/21/19 10:19 Norvasc - PO 5 mg DAILY FARAZ Administration Benzocaine/Menthol 1 each 09/19/19 00:48 Cepacol Lozenge - MM PRN PRN SORE THROAT Chlorhexidine Gluconate 1 applic 09/19/19 22:00 09/20/19 21:29 Hibiclens For Decolonization - TP Not Given HS FARAZ Diazepam 5 mg 09/19/19 06:00 09/21/19 06:05 Valium - PO 5 mg Q8H FARAZ Administration Escitalopram Oxalate 5 mg 09/21/19 10:00 Lexapro - PO DAILY FARAZ Hydromorphone HCl 10 mg 09/19/19 00:48 09/21/19 06:04 Hydromorphone 10 Mg/50 Ml-Ns INFECTION CONTROL RN Not Given INFECTION CONTROL RN FARAZ Protocol Ceftriaxone Sodium 1 gm/ 50 mls @ 100 mls/hr 09/19/19 10:00 09/21/19 09:31 Dextrose IVPB 100 mls/hr DAILY FARAZ Administration Protocol Sodium Chloride 1,000 mls @ 100 mls/hr 09/19/19 15:00 09/21/19 09:30 1/2 Normal Saline IV 100 mls/hr ASDIR FARAZ Administration Lactobacillus Acidophilus 1 tab 09/19/19 06:00 09/21/19 06:05 Bacid - PO 1 tab TID FARAZ Administration Mupirocin 1 applic 09/19/19 10:00 09/21/19 09:32 Bactroban Ointment (For Decolonization) - NS 09/24/19 09:59 1 applic BID FARAZ Administration Ondansetron HCl 4 mg 09/19/19 00:48 Zofran Injection IVPUSH Q6H PRN NAUSEA AND/OR VOMITING Pantoprazole Sodium 40 mg 09/19/19 10:00 09/21/19 09:31 Protonix Iv IVPUSH 40 mg DAILY FARAZ Administration Sodium Bicarbonate 650 mg 09/20/19 22:00 09/21/19 09:31 Sodium Bicarbonate - PO 650 mg BID FARAZ Administration Vancomycin HCl 125 mg 09/19/19 06:00 09/21/19 06:05 Vancomycin Oral Solution PO 125 mg Q6HPO FARAZ Administration ASSESSMENT/PLAN: 68 y/o F w/ hx of multiple spinal surgeries s/p L1-S1 posterior decompression & T11-S1 instrumented fusion on 08/26/2019 presents w/ wound infection s/p I&D #s/p L1-S1 posterior decompression & T11-S1 instrumented fusion 08/26/2019 s/p I&D - c/w rocephin started on 09/18. Zosyn discontinued - followed by ID and Ortho - Pain management - Incentive spirometry # Cdiff - c/w oral vanco - ID following - ova and parasite ordered #PANCHO post op possible ATN - followed by Renal - Avoid nephrotoxic meds - Fena 1.4 #M spike - possible reactive - seen by Heme/Onc - light chains and protein w/u #c/w chronic home meds # dvt ppx: mechanical only- SCD/TEDs GI: protonix #Dispo ICU monitoring Problem List - Problems (1) PANCHO (acute kidney injury) Code(s): N17.9 - ACUTE KIDNEY FAILURE, UNSPECIFIED (2) Wound infection after surgery Code(s): T81.49XA - INFECTION FOLLOWING A PROCEDURE, OTHER SURGICAL SITE, INIT (3) Hx of decompressive lumbar laminectomy Code(s): Z98.890 - OTHER SPECIFIED POSTPROCEDURAL STATES Visit type - Emergency Visit Emergency Visit: Yes ED Registration Date: 09/09/19 Care time: The patient presented to the Emergency Department on the above date and was hospitalized for further evaluation of their emergent condition. - New Patient This patient is new to me today: Yes Date on this admission: 09/21/19 - Critical Care Critical Care patient: Yes Total Critical Care Time (in minutes): 30 Critical Care Statement: The care of this patient involved high complexity decision making to prevent further life threatening deterioration of the patient 's condition and/or to evaluate & treat vital organ system(s) failure or risk of failure. - Discharge Referral Referred to [facility] Med [facility] No
[2019-09-21] MEDS: ESCITALOPRAM OXALATE 10 MG TABLET (FP) PO SCH (12:57)
--- NOTE | 2019-09-21 17:33 | PN ---
Progress Note, Physician History of Present Illness: Pt is alert, afebrile. c/o back pain with movement. Rectal tube in place without significant output as per RN. - Current Medication List Current Medications: Active Medications Amlodipine Besylate (Norvasc -) 5 mg PO DAILY [facility] Last Admin: 09/21/19 10:19 Dose: 5 mg Benzocaine/Menthol (Cepacol Lozenge -) 1 each MM PRN PRN PRN Reason: SORE THROAT Chlorhexidine Gluconate (Hibiclens For Decolonization -) 1 applic TP HS [facility] Last Admin: 09/20/19 21:29 Dose: Not Given Diazepam (Valium -) 5 mg PO Q8H [facility] Last Admin: 09/21/19 13:00 Dose: 5 mg Escitalopram Oxalate (Lexapro -) 5 mg PO DAILY [facility] Last Admin: 09/21/19 12:57 Dose: 5 mg Hydromorphone HCl (Hydromorphone 10 Mg/50 Ml-Ns) 10 mg UNSTACKER UNSTACKER [facility]; Protocol Last Admin: 09/21/19 12:41 Dose: 10 mg Ceftriaxone Sodium 1 gm/ (Dextrose) 50 mls @ 100 mls/hr IVPB DAILY [facility]; Protocol Last Admin: 09/21/19 09:31 Dose: 100 mls/hr Sodium Chloride (1/2 Normal Saline) 1,000 mls @ 100 mls/hr IV ASDIR [facility] Last Admin: 09/21/19 09:30 Dose: 100 mls/hr Lactobacillus Acidophilus (Bacid -) 1 tab PO TID [facility] Last Admin: 09/21/19 13:00 Dose: 1 tab Mupirocin (Bactroban Ointment (For Decolonization) -) 1 applic NS BID [facility] Stop: 09/24/19 09:59 Last Admin: 09/21/19 09:32 Dose: 1 applic Ondansetron HCl (Zofran Injection) 4 mg IVPUSH Q6H PRN PRN Reason: NAUSEA AND/OR VOMITING Pantoprazole Sodium (Protonix Iv) 40 mg IVPUSH DAILY [facility] Last Admin: 09/21/19 09:31 Dose: 40 mg Sodium Bicarbonate (Sodium Bicarbonate -) 650 mg PO BID [facility] Last Admin: 09/21/19 09:31 Dose: 650 mg Vancomycin HCl (Vancomycin Oral Solution) 125 mg PO Q6HPO [facility] Last Admin: 09/21/19 12:43 Dose: 125 mg - Objective Vital Signs: Vital Signs Temperature 98.7 F 09/21/19 13:46 Pulse Rate 84 09/21/19 15:48 Respiratory Rate 14 09/21/19 15:48 Blood Pressure 155/63 09/21/19 15:48 O2 Sat by Pulse Oximetry (%) 98 09/21/19 13:46 Constitutional: Yes: No Distress, Calm Cardiovascular: Yes: Regular Rate and Rhythm Respiratory: Yes: Regular Gastrointestinal: Yes: Normal Bowel Sounds, Soft, Abdomen, Obese Genitourinary: Yes: Baird Present Musculoskeletal: Yes: Back Pain Integumentary: Yes: WNL Wound/Incision: Yes: Dressing Dry and Intact Neurological: Yes: Alert, Oriented Labs: CBC, BMP 09/21/19 06:15 09/21/19 06:15 INR, PTT INR 1.69 (0.83-1.09) H 09/13/19 05:45 Microbiology 09/16/19 16:13 Back Gram Stain - Final 09/16/19 16:13 Back Wound Culture - Final NO AEROBIC OR ANAEROBIC GROWTH OBTAINED. 09/12/19 15:20 Blood - Peripheral Venous Blood Culture - Final NO GROWTH AFTER 5 DAYS INCUBATION 09/12/19 15:28 Blood - Peripheral Venous Blood Culture - Final NO GROWTH AFTER 5 DAYS INCUBATION 09/09/19 16:30 Back Gram Stain - Final 09/09/19 16:30 Back Wound Culture - Final Escherichia Coli Bacteroides Fragilis Campylobacter Gracilis 09/16/19 01:30 Stool Gram Stain - Final 09/16/19 01:30 Stool Clostridioides difficile Antigen - Final 09/16/19 01:30 Stool Clostridioides difficile Toxin Assay - Final 09/14/19 10:27 Back Gram Stain - Final 09/14/19 10:27 Back Wound Culture - Final NO AEROBIC OR ANAEROBIC GROWTH OBTAINED. 09/14/19 10:24 Back Gram Stain - Final 09/14/19 10:24 Back Wound Culture - Final NO AEROBIC OR ANAEROBIC GROWTH OBTAINED. 09/14/19 10:26 Back Gram Stain - Final 09/14/19 10:26 Back Wound Culture - Final NO AEROBIC OR ANAEROBIC GROWTH OBTAINED. 09/09/19 14:53 Urine - Urine - Catheterized Urine Culture - Final NO GROWTH OBTAINED Problem List - Problems (1) PANCHO (acute kidney injury) Code(s): N17.9 - ACUTE KIDNEY FAILURE, UNSPECIFIED (2) Wound infection after surgery Code(s): T81.49XA - INFECTION FOLLOWING A PROCEDURE, OTHER SURGICAL SITE, INIT (3) Hx of decompressive lumbar laminectomy Code(s): Z98.890 - OTHER SPECIFIED POSTPROCEDURAL STATES Assessment/Plan Thoraco-lumbar spine infection/abscess s/p I+D POD#3 PANCHO C.diff Ag +/ toxin neg Anemia -- continue current antibiotic -- latest wound culture no growth -- pain control -- monitor renal function, slightly improved since yesterday
[2019-09-21] MEDS: CHLORHEXIDINE GLUCONATE 4% CLEANSER FOR DECOLONIZATION TP SCH (21:10)
[2019-09-22] MEDS: VANCOMYCIN 250 MG/5 ML ORAL SOLUTION PO SCH ×4 (00:59→18:05)
[2019-09-22] MEDS: HYDROmorphone *PCA* 10MG/50ML DISP.SYRIN PCA SCH ×2 (02:14→22:27)
[2019-09-22] MEDS: SODIUM CHLORIDE 0.45% 1,000 ML IV SCH ×2 (03:57→17:27)
[2019-09-22] MEDS: diazePAM 5 MG TABLET PO SCH ×3 (06:02→21:42)
[2019-09-22] MEDS: LACTOBACILLUS ACIDOPHILUS 1 TABLET PO SCH ×3 (06:02→21:42)
[2019-09-22 07:19] LABS: HEMATOCRIT 28.3 % (32.4-45.2); HEMOGLOBIN 9.5 GM/dL (10.7-15.3); MCH 27.3 pg (25.7-33.7); MCHC 33.5 g/dl (32.0-36.0); MEAN CELL VOLUME 81.4 fl (80-96); MEAN PLT VOLUME 6.4 fl (7.5-11.1); PLATELET COUNT 426 K/MM3 (134-434); RBC 3.48 M/mm3 (3.60-5.2); RDW 16.1 % (11.6-15.6); WHITE BLOOD COUNT 10.1 K/mm3 (4.0-10.0)
[2019-09-22 07:48] LABS: ALBUMIN 1.8 g/dl (3.4-5.0); BILIRUBIN,TOTAL 0.4 mg/dL (0.2-1); BLOOD UREA NITROGEN 29.3 mg/dL (7-18); CALCIUM 8.5 mg/dL (8.5-10.1); PHOSPHOROUS 4.9 mg/dL (2.5-4.9); POTASSIUM 3.5 mmol/L (3.5-5.1); TOT PROT 4.8 g/dl (6.4-8.2)
--- NOTE | 2019-09-22 08:14 | PN ---
Physical Exam: SUBJECTIVE: Patient seen and examined by the bedside. Appears to be tearful, endorses back pain. OBJECTIVE: Vital Signs Period Temp Pulse Resp BP Sys/No Pulse Ox Last 24 Hr 98.1 F-98.7 F 82-888 14-25 155-184/58-100 96-99 GENERAL: AOx3, endorses back pain, tearful. HEAD: Normal with no signs of trauma. EYES: ANTONINO, EOMI, no scleral icterus, no ptosis ENT: moist mucous membranes NECK: Trachea midline, supple LUNGS: Clear B/L, clear to auscultation, no wheezes, no crackles, no accessory muscle use HEART: RRR, S1, S2 without murmur, rub or gallop. ABDOMEN: Soft, nontender, nondistended, normoactive bowel sounds, no guarding. EXTREMITIES: 2+ pulses, warm, well-perfused, no edema. NEUROLOGICAL: Normal speech, gait not observed. PSYCH: tearful affect SKIN: Warm, dry Laboratory Results - last 24 hr 09/18/19 09/21/19 09/22/19 14:30 06:15 06:00 Sodium 138 142 Potassium 3.8 3.5 Chloride 109 H 111 H Carbon Dioxide 17 L 17 L Anion Gap 12 13 BUN 29.0 H 29.3 H Creatinine 4.2 H 4.0 H Est GFR (CKD-EPI)AfAm 11.66 12.37 Est GFR (CKD-EPI)NonAf 10.06 10.67 Random Glucose 71 L 73 L Calcium 8.1 L 8.5 Phosphorus 4.8 4.9 Magnesium 1.9 2.0 Total Bilirubin 0.2 0.4 AST 12 L 10 L ALT 14 13 Alkaline Phosphatase 89 90 Total Protein 4.6 L 4.8 L Albumin 1.7 L 1.8 L Stool O & P Wet [place] O & P Permanent Slide Final report Active Medications Generic Name Dose Route Start Last Admin Trade Name Freq PRN Reason Stop Dose Admin Amlodipine Besylate 5 mg 09/21/19 10:00 09/21/19 10:19 Norvasc - PO 5 mg DAILY [facility]AZ Administration Benzocaine/Menthol 1 each 09/19/19 00:48 Cepacol Lozenge - MM PRN PRN SORE THROAT Chlorhexidine Gluconate 1 applic 09/19/19 22:00 09/21/19 21:10 Hibiclens For Decolonization - TP Not Given HS FARAZ Diazepam 5 mg 09/19/19 06:00 09/22/19 06:02 Valium - PO 5 mg Q8H [facility] Administration Escitalopram Oxalate 5 mg 09/21/19 10:00 09/21/19 12:57 Lexapro - PO 5 mg DAILY [facility] Administration Hydromorphone HCl 10 mg 09/19/19 00:48 09/22/19 02:14 Hydromorphone 10 Mg/50 Ml-Ns TITLE CLERK Not Given TITLE CLERK [facility] Protocol Ceftriaxone Sodium 1 gm/ 50 mls @ 100 mls/hr 09/19/19 10:00 09/21/19 09:31 Dextrose IVPB 100 mls/hr DAILY [facility] Administration Protocol Sodium Chloride 1,000 mls @ 100 mls/hr 09/19/19 15:00 09/22/19 03:57 1/2 Normal Saline IV Not Given ASDIR [facility] Lactobacillus Acidophilus 1 tab 09/19/19 06:00 09/22/19 06:02 Bacid - PO 1 tab TID [facility] Administration Mupirocin 1 applic 09/19/19 10:00 09/21/19 21:10 Bactroban Ointment (For Decolonization) - NS 09/24/19 09:59 Not Given BID [facility] Ondansetron HCl 4 mg 09/19/19 00:48 Zofran Injection IVPUSH Q6H PRN NAUSEA AND/OR VOMITING Pantoprazole Sodium 40 mg 09/19/19 10:00 09/21/19 09:31 Protonix Iv IVPUSH 40 mg DAILY [facility] Administration Sodium Bicarbonate 650 mg 09/20/19 22:00 09/21/19 21:09 Sodium Bicarbonate - PO 650 mg BID [facility] Administration Vancomycin HCl 125 mg 09/19/19 06:00 09/22/19 06:02 Vancomycin Oral Solution PO 125 mg Q6HPO [facility] Administration ASSESSMENT/PLAN: 68F with no significant PMH, history of multiple spinal surgeries: 08/26/19: L1-S1 posterior decompression & T11-S1 instrumented fusion 09/09/19: I&D posterior thoracolumbar spine 09/11/19: I&D with wound vac application 09/14/19: I&D with debridement thoracolumbar spine, exchanged wound vac 09/16/19: Repeat I&D 09/18/19: I&D with complex wound closure (POD#4) #Neuro - POD# 4 after washout and closure - AAOx3 - Analgesia: TITLE CLERK, Valium - Physical Therapy - Started Lexapro as patient has been tearful and depressed on exam #Cardio - Hypertensive, started on Norvasc 5mg daily - Monitor BP #Pulm - Maintain O2 saturation >90% - Incentive spirometry #GI - C Diff positive, Vanco 125mg PO Q6H started 09/16 - Rectal tube in place since 09/13 #ID - ID recs: Continue Ceftriaxone, Zosyn D/Max - C Diff positive, Vanco 125mg PO Q6H - Ova and Parasites negative - Wound cx 09/09: Campylobacter Gracilis, E coli, Bacteroides Fragilis - WBC 10.1 #Renal - Cr downtrending, daily trend 1.1 -> 2.6 -> 3.5 -> 3.7 -> 4.0 -> 4.4 -> 4.5 - > 4.5 -> 4.4 -> 4.2 -> 4.0 - Differential for worsening renal function: PANCHO/Hypoperfusion due to infection/ abcess vs. AIN from abx vs. hemodynamic injury hypoperfusion - Renal recs: No need for HD, repeat labs in AM - Baird in place #Heme - Heme/Onc consulted for M-spike detected on labs - M spike likely 2/2 infection/surgery/inflammation but differential includes MGUS/smoldering MM. Light chains and proteins labs ordered. - recommended to repeat when clinically stable #Prophylaxis - VLADISLAV, SCD - Protonix 40mg IV #FEN - 1/2 N/S @100 - Regular diet #Disposition - Disposition as per surgery, stable for transfer to floors Visit type - Emergency Visit Emergency Visit: No - New Patient This patient is new to me today: No - Critical Care Critical Care patient: Yes Total Critical Care Time (in minutes): 38 Critical Care Statement: The care of this patient involved high complexity decision making to prevent further life threatening deterioration of the patient 's condition and/or to evaluate & treat vital organ system(s) failure or risk of failure. ATTENDING PHYSICIAN STATEMENT I saw and evaluated the patient. I reviewed the resident's note and discussed the case with the resident. I agree with the resident's findings and plan as documented. SUBJECTIVE: OBJECTIVE: ASSESSMENT AND PLAN:
--- NOTE | 2019-09-22 09:13 | PN ---
Progress Note (short form) - Note Progress Note: RENAL Pt is awake and alert not feeling well says she had abowel movement and needs to be cleaned but has a rectal tube Last Vital Signs Temp Pulse Resp BP Pulse Ox 98.6 F 82 14 173/72 H 98 09/22/19 06:00 09/22/19 06:00 09/22/19 06:00 09/22/19 06:00 09/21/19 19:41 appears acutely ill lungs clear anteriorly cvs s1s2 rr abd soft, not tender, no edema neuro a+ox3 skin no lesions noted CBC, BMP 09/22/19 06:00 09/22/19 06:00 Current Medications Generic Name Dose Route Start Last Admin Trade Name Freq PRN Reason Stop Dose Admin Amlodipine Besylate 10 mg 09/22/19 10:00 Norvasc - PO DAILY [facility] Benzocaine/Menthol 1 each 09/19/19 00:48 Cepacol Lozenge - MM PRN PRN SORE THROAT Chlorhexidine Gluconate 1 applic 09/19/19 22:00 09/21/19 21:10 Hibiclens For Decolonization - TP Not Given HS [facility] Diazepam 5 mg 09/19/19 06:00 09/22/19 06:02 Valium - PO 5 mg Q8H [facility] Administration Escitalopram Oxalate 5 mg 09/21/19 10:00 09/21/19 12:57 Lexapro - PO 5 mg DAILY [facility] Administration Hydromorphone HCl 10 mg 09/19/19 00:48 09/22/19 02:14 Hydromorphone 10 Mg/50 Ml-Ns MANAGEMENT TECH Not Given MANAGEMENT TECH [facility] Protocol Ceftriaxone Sodium 1 gm/ 50 mls @ 100 mls/hr 09/19/19 10:00 09/21/19 09:31 Dextrose IVPB 100 mls/hr DAILY [facility] Administration Protocol Sodium Chloride 1,000 mls @ 100 mls/hr 09/19/19 15:00 09/22/19 03:57 1/2 Normal Saline IV Not Given ASDIR [facility] Lactobacillus Acidophilus 1 tab 09/19/19 06:00 09/22/19 06:02 Bacid - PO 1 tab TID [facility] Administration Mupirocin 1 applic 09/19/19 10:00 09/21/19 21:10 Bactroban Ointment (For Decolonization) - NS 09/24/19 09:59 Not Given BID [facility] Ondansetron HCl 4 mg 09/19/19 00:48 Zofran Injection IVPUSH Q6H PRN NAUSEA AND/OR VOMITING Pantoprazole Sodium 40 mg 09/19/19 10:00 09/21/19 09:31 Protonix Iv IVPUSH 40 mg DAILY [facility] Administration Sodium Bicarbonate 650 mg 09/20/19 22:00 09/21/19 21:09 Sodium Bicarbonate - PO 650 mg BID [facility] Administration Vancomycin HCl 125 mg 09/19/19 06:00 09/22/19 06:02 Vancomycin Oral Solution PO 125 mg Q6HPO [facility] Administration IMPRESSION 1. PANCHO post op- unclear as to etiology but its stable, perhaps ATN- improving 2. Spine wound infection 3. Hyponatremia in setting of decreased renal function now improved 4. hypokalemia 5. nephrolithiasis Plan - keep monitoring renal function. No need for hd. Renal function has improved - repeat labs in am - cont fluids - avoid nephrotixins - follow serologies - neurosurgery on board - antibiotics per ID MV
[2019-09-22] MEDS ORDERED: DEXTROSE 5%-WATER - 50 ML IVPB ONE (09:31)
[2019-09-22] MEDS ORDERED: cefTRIAXone SODIUM 1 GM VIAL ONE (09:31)
--- NOTE | 2019-09-22 09:39 | PN ---
Progress Note (short form) - Note Progress Note: 68F s/p L1-S1 posterior decompression & T11-S1 instrumented fusion (08/26/2019) p/w 400cc epidural abscess (09/09/2019) now s/p I&D posterior thoracolumbar spine w/delayed priary closure POD #3. Pain well controlled. No acute events overnight. Pt. denies overnight history of headaches, chest pain, shortness of breath, nausea, vomiting, chills, & sweats. (+) Baird; (+) Flatus; (+) BM/rectal tube. All labs and vitals reviewed. Renal function improving; good urine output. PE: AAO x 3, NAD. T/L-Spine: Incision, dressing C/D/I. Drains intact & in place. B/L LE NV status at baseline. 68F s/p L1-S1 posterior decompression & T11-S1 instrumented fusion (08/26/2019) p/w 400cc epidural abscess (09/09/2019) now s/p I&D posterior thoracolumbar spine w/delayed priary closure POD #3. -Patient strictly to remain in ICU. Patient requires attentive nursing care: multiple system infections, electrolyte derangements, rectal tube in place, renal compromise, etc. -Full liquid diet. -Out of bed to chair at least twice daily. -PT/OT/Rehab, out of bed and ambulating with assistance. -WBAT B/L LE. -f/u drain output. -Offload heals with rolled towels under ankles to avoid heel ulcers/pressure sores. -Log roll q2h/place on wedge pillows to avoid sacral decubitus ulcer formation. -Attentive perineal hygiene. -Pain medication: per anaesthesia team; CUTTING AND PRINTING MACHINE OPERATOR if needed; transition to oral meds; NO NSAID's. -Antibiotics (wound infection) and PO antibiotics (C. Diff infection) as per ID team. -f/u daily labs. -DVT PPx: -Mechanical only: VLADISLAV's, SCD's. -Incentive spirometry q5-10 min. -B/L UE & LE NV checks. -No heavy lifting (>5 lbs), bending or twisting x 6 months post op. -Care per ICU, ID, renal, hematology & medical hospitalist teams. -Discharge planning: plan to d/c back to [place] when medically fit. -Will follow. Elder Villa MD (Orthopaedic Surgery).
--- NOTE | 2019-09-22 09:40 | PN ---
Progress Note (short form) - Note Progress Note: Patient strictly to remain in ICU. Patient requires attentive nursing care: multiple system infections, electrolyte derangements, rectal tube in place, renal compromise, etc.
--- NOTE | 2019-09-22 09:49 | PN ---
Teaching Attending Note Name of Resident: Winston Knott ATTENDING PHYSICIAN STATEMENT I saw and evaluated the patient. I reviewed the resident's note and discussed the case with the resident. I agree with the resident's findings and plan as documented. SUBJECTIVE: Patient seen and examined in the ICU. Still upset about overall condition. No CP or SOB. OBJECTIVE: Intake & Output 09/19/19 09/20/19 09/21/19 09/22/19 23:59 23:59 23:59 23:59 Intake Total 1910 2350 3350 1200 Output Total 1465 1865 3160 700 Balance 445 485 190 500 Last Vital Signs Temp Pulse Resp BP Pulse Ox 98.6 F 80 18 170/65 96 09/22/19 06:00 09/22/19 09:23 09/22/19 09:23 09/22/19 09:23 09/22/19 09:23 Active Medications Amlodipine Besylate (Norvasc -) 10 mg PO DAILY [facility] Benzocaine/Menthol (Cepacol Lozenge -) 1 each MM PRN PRN PRN Reason: SORE THROAT Chlorhexidine Gluconate (Hibiclens For Decolonization -) 1 applic TP HS [facility] Last Admin: 09/21/19 21:10 Dose: Not Given Diazepam (Valium -) 5 mg PO Q8H [facility] Last Admin: 09/22/19 06:02 Dose: 5 mg Escitalopram Oxalate (Lexapro -) 5 mg PO DAILY [facility] Last Admin: 09/21/19 12:57 Dose: 5 mg Hydromorphone HCl (Hydromorphone 10 Mg/50 Ml-Ns) 10 mg BARREL DRAINER BARREL DRAINER [facility]; Protocol Last Admin: 09/22/19 02:14 Dose: Not Given Ceftriaxone Sodium 1 gm/ (Dextrose) 50 mls @ 100 mls/hr IVPB DAILY [facility]; Protocol Last Admin: 09/21/19 09:31 Dose: 100 mls/hr Sodium Chloride (1/2 Normal Saline) 1,000 mls @ 100 mls/hr IV ASDIR [facility] Last Admin: 09/22/19 03:57 Dose: Not Given Lactobacillus Acidophilus (Bacid -) 1 tab PO TID [facility] Last Admin: 09/22/19 06:02 Dose: 1 tab Mupirocin (Bactroban Ointment (For Decolonization) -) 1 applic NS BID [facility] Stop: 09/24/19 09:59 Last Admin: 09/21/19 21:10 Dose: Not Given Ondansetron HCl (Zofran Injection) 4 mg IVPUSH Q6H PRN PRN Reason: NAUSEA AND/OR VOMITING Pantoprazole Sodium (Protonix Iv) 40 mg IVPUSH DAILY [facility] Last Admin: 09/21/19 09:31 Dose: 40 mg Sodium Bicarbonate (Sodium Bicarbonate -) 650 mg PO BID [facility] Last Admin: 09/21/19 21:09 Dose: 650 mg Vancomycin HCl (Vancomycin Oral Solution) 125 mg PO Q6HPO [facility] Last Admin: 09/22/19 06:02 Dose: 125 mg Gen: NAD at rest Heart: RRR Lung: decreased breath sounds at the bases Abd: soft, nontender Ext: no edema Laboratory Results - last 24 hr 09/18/19 09/22/19 09/22/19 14:30 06:00 06:00 WBC 10.1 H RBC 3.48 L Hgb 9.5 L Hct 28.3 L MCV 81.4 MCH 27.3 MCHC 33.5 RDW 16.1 H Plt Count 426 MPV 6.4 L Sodium 142 Potassium 3.5 Chloride 111 H Carbon Dioxide 17 L Anion Gap 13 BUN 29.3 H Creatinine 4.0 H Est GFR (CKD-EPI)AfAm 12.37 Est GFR (CKD-EPI)NonAf 10.67 Random Glucose 73 L Calcium 8.5 Phosphorus 4.9 Magnesium 2.0 Total Bilirubin 0.4 AST 10 L ALT 13 Alkaline Phosphatase 90 Total Protein 4.8 L Albumin 1.8 L Stool O & P Wet [place] O & P Permanent Slide Final report ASSESSMENT AND PLAN: Thoracolumbar spine wound infection/Abscess s/p I&D Acute Kidney Injury Anemia +C diff Ag - Local wound care per surgery - ABX per ID - Pain control - incentive spirometry - monitor renal function - replete lytes - DVT prophylaxis - Further disposition per surgery - Dylan Patterson
[2019-09-22] MEDS: CEFTRIAXONE 1 GM in DEXTROSE 5%-WATER - 50 ML IVPB SCH (09:57)
[2019-09-22] MEDS: SODIUM BICARBONATE 650 MG TABLET PO SCH ×2 (09:57→21:42)
[2019-09-22] MEDS: PANTOPRAZOLE SODIUM 40 MG VIAL IVPUSH SCH (09:57)
[2019-09-22] MEDS: amLODIPine BESYLATE 10 MG TABLET (FP) PO SCH (09:57)
[2019-09-22] MEDS: ESCITALOPRAM OXALATE 10 MG TABLET (FP) PO SCH (09:57)
[2019-09-22] MEDS: MUPIROCIN 2% TOPICAL OINTMENT FOR DECOLONIZATION NS SCH ×2 (13:03→21:43)
--- NOTE | 2019-09-22 13:36 | PN ---
Progress Note (short form) - Note Progress Note: Pt s/p multiple I and D, closure of back wound. Pt reports still using CARDIAC/VASCULAR SONOGRAPHER, will keep for now. Pain still present but CARDIAC/VASCULAR SONOGRAPHER is helping. Will follow.
--- NOTE | 2019-09-22 15:42 | PN ---
Physical Exam: SUBJECTIVE: Patient seen and examined. States shes overall uncomfortable and in pain. OBJECTIVE: Vital Signs Period Temp Pulse Resp BP Sys/No Pulse Ox Last 24 Hr 97.8 F-98.6 F 80-888 14-25 146-180/54-79 96-99 GENERAL: The patient is awake, alert, and fully oriented NECK: supple LUNGS: Breath sounds equal, clear to auscultation bilaterally, no wheezes, no crackles, no accessory muscle use. HEART: Regular rate and rhythm, S1, S2 without murmur ABDOMEN: Soft, nontender, + obese, normoactive bowel sounds EXTREMITIES: 2+ pulses, warm no edema SKIN: Warm, dry Laboratory Results - last 24 hr 09/22/19 09/22/19 06:00 06:00 WBC 10.1 H RBC 3.48 L Hgb 9.5 L Hct 28.3 L MCV 81.4 MCH 27.3 MCHC 33.5 RDW 16.1 H Plt Count 426 MPV 6.4 L Sodium 142 Potassium 3.5 Chloride 111 H Carbon Dioxide 17 L Anion Gap 13 BUN 29.3 H Creatinine 4.0 H Est GFR (CKD-EPI)AfAm 12.37 Est GFR (CKD-EPI)NonAf 10.67 Random Glucose 73 L Calcium 8.5 Phosphorus 4.9 Magnesium 2.0 Total Bilirubin 0.4 AST 10 L ALT 13 Alkaline Phosphatase 90 Total Protein 4.8 L Albumin 1.8 L Active Medications Generic Name Dose Route Start Last Admin Trade Name Freq PRN Reason Stop Dose Admin Amlodipine Besylate 10 mg 09/22/19 10:00 09/22/19 09:57 Norvasc - PO 10 mg DAILY [facility] Administration Benzocaine/Menthol 1 each 09/19/19 00:48 Cepacol Lozenge - MM PRN PRN SORE THROAT Chlorhexidine Gluconate 1 applic 09/19/19 22:00 09/21/19 21:10 Hibiclens For Decolonization - TP Not Given HS FARAZ Diazepam 5 mg 09/19/19 06:00 09/22/19 13:36 Valium - PO Not Given Q8H [facility] Escitalopram Oxalate 5 mg 09/21/19 10:00 09/22/19 09:57 Lexapro - PO 5 mg DAILY [facility] Administration Hydromorphone HCl 10 mg 09/19/19 00:48 09/22/19 02:14 Hydromorphone 10 Mg/50 Ml-Ns NETWORK DESKTOP SUPPORT SPECIALIST Not Given NETWORK DESKTOP SUPPORT SPECIALIST [facility] Protocol Ceftriaxone Sodium 1 gm/ 50 mls @ 100 mls/hr 09/19/19 10:00 09/22/19 09:57 Dextrose IVPB 100 mls/hr DAILY [facility] Administration Protocol Sodium Chloride 1,000 mls @ 100 mls/hr 09/19/19 15:00 09/22/19 03:57 1/2 Normal Saline IV Not Given ASDIR [facility] Lactobacillus Acidophilus 1 tab 09/19/19 06:00 09/22/19 13:35 Bacid - PO 1 tab TID [facility] Administration Mupirocin 1 applic 09/19/19 10:00 09/22/19 13:03 Bactroban Ointment (For Decolonization) - NS 09/24/19 09:59 1 applic BID [facility] Administration Ondansetron HCl 4 mg 09/19/19 00:48 Zofran Injection IVPUSH Q6H PRN NAUSEA AND/OR VOMITING Pantoprazole Sodium 40 mg 09/19/19 10:00 09/22/19 09:57 Protonix Iv IVPUSH 40 mg DAILY [facility] Administration Sodium Bicarbonate 650 mg 09/20/19 22:00 09/22/19 09:57 Sodium Bicarbonate - PO 650 mg BID FARAZ Administration Vancomycin HCl 125 mg 09/19/19 06:00 09/22/19 11:53 Vancomycin Oral Solution PO 125 mg Q6HPO [facility] Administration ASSESSMENT/PLAN: 68 y/o F w/ hx of multiple spinal surgeries s/p L1-S1 posterior decompression & T11-S1 instrumented fusion on 08/26/2019 presents w/ wound infection s/p I&D #s/p L1-S1 posterior decompression & T11-S1 instrumented fusion 08/26/2019 s/p I&D - c/w rocephin started on 09/18. Zosyn discontinued - followed by ID and Ortho - Pain management with NETWORK DESKTOP SUPPORT SPECIALIST - Incentive spirometry - started on lexapro for mood # Cdiff - c/w oral vanco - ID following - ova and parasite ordered #PANCHO post op possible ATN - followed by Renal - Avoid nephrotoxic meds - Fena 1.4 #M spike - possible reactive - seen by Heme/Onc - light chains and protein w/u #c/w chronic home meds # dvt ppx: mechanical only- SCD/TEDs GI: protonix #Dispo ICU monitoring Problem List - Problems (1) PANCHO (acute kidney injury) Code(s): N17.9 - ACUTE KIDNEY FAILURE, UNSPECIFIED (2) Wound infection after surgery Code(s): T81.49XA - INFECTION FOLLOWING A PROCEDURE, OTHER SURGICAL SITE, INIT (3) Hx of decompressive lumbar laminectomy Code(s): Z98.890 - OTHER SPECIFIED POSTPROCEDURAL STATES Visit type - Emergency Visit Emergency Visit: Yes ED Registration Date: 09/09/19 Care time: The patient presented to the Emergency Department on the above date and was hospitalized for further evaluation of their emergent condition. - New Patient This patient is new to me today: No - Critical Care Critical Care patient: No - Discharge Referral Referred to [facility] Med P.C.: No
--- NOTE | 2019-09-22 17:30 | PN ---
Progress Note, Physician History of Present Illness: Pt without new complaints. States she has back pain. Remains afebrile. Denies abd pain/SOB/CP/dysuria - Current Medication List Current Medications: Active Medications Amlodipine Besylate (Norvasc -) 10 mg PO DAILY [facility] Last Admin: 09/22/19 09:57 Dose: 10 mg Benzocaine/Menthol (Cepacol Lozenge -) 1 each MM PRN PRN PRN Reason: SORE THROAT Chlorhexidine Gluconate (Hibiclens For Decolonization -) 1 applic TP HS [facility] Last Admin: 09/21/19 21:10 Dose: Not Given Diazepam (Valium -) 5 mg PO Q8H [facility] Last Admin: 09/22/19 13:36 Dose: Not Given Escitalopram Oxalate (Lexapro -) 5 mg PO DAILY [facility] Last Admin: 09/22/19 09:57 Dose: 5 mg Hydromorphone HCl (Hydromorphone 10 Mg/50 Ml-Ns) 10 mg SHOPPING INVESTIGATOR SHOPPING INVESTIGATOR [facility]; Protocol Last Admin: 09/22/19 02:14 Dose: Not Given Ceftriaxone Sodium 1 gm/ (Dextrose) 50 mls @ 100 mls/hr IVPB DAILY [facility]; Protocol Last Admin: 09/22/19 09:57 Dose: 100 mls/hr Sodium Chloride (1/2 Normal Saline) 1,000 mls @ 100 mls/hr IV ASDIR [facility] Last Admin: 09/22/19 03:57 Dose: Not Given Lactobacillus Acidophilus (Bacid -) 1 tab PO TID [facility] Last Admin: 09/22/19 13:35 Dose: 1 tab Mupirocin (Bactroban Ointment (For Decolonization) -) 1 applic NS BID [facility] Stop: 09/24/19 09:59 Last Admin: 09/22/19 13:03 Dose: 1 applic Ondansetron HCl (Zofran Injection) 4 mg IVPUSH Q6H PRN PRN Reason: NAUSEA AND/OR VOMITING Pantoprazole Sodium (Protonix Iv) 40 mg IVPUSH DAILY [facility] Last Admin: 09/22/19 09:57 Dose: 40 mg Sodium Bicarbonate (Sodium Bicarbonate -) 650 mg PO BID [facility] Last Admin: 09/22/19 09:57 Dose: 650 mg Vancomycin HCl (Vancomycin Oral Solution) 125 mg PO Q6HPO [facility] Last Admin: 09/22/19 11:53 Dose: 125 mg - Objective Vital Signs: Vital Signs Temperature 98 F 09/22/19 15:00 Pulse Rate 88 09/22/19 15:00 Respiratory Rate 16 09/22/19 15:00 Blood Pressure 160/55 L 09/22/19 15:00 O2 Sat by Pulse Oximetry (%) 96 09/22/19 09:23 Constitutional: Yes: No Distress Cardiovascular: Yes: Regular Rate and Rhythm Respiratory: Yes: Regular Gastrointestinal: Yes: Normal Bowel Sounds, Soft, Abdomen, Obese Musculoskeletal: Yes: Back Pain Extremities: Yes: WNL Integumentary: Yes: WNL Wound/Incision: Yes: Dressing Dry and Intact Neurological: Yes: Alert Labs: CBC, BMP 09/22/19 06:00 09/22/19 06:00 INR, PTT INR 1.69 (0.83-1.09) H 09/13/19 05:45 Microbiology 09/16/19 16:13 Back Gram Stain - Final 09/16/19 16:13 Back Wound Culture - Final NO AEROBIC OR ANAEROBIC GROWTH OBTAINED. 09/12/19 15:20 Blood - Peripheral Venous Blood Culture - Final NO GROWTH AFTER 5 DAYS INCUBATION 09/12/19 15:28 Blood - Peripheral Venous Blood Culture - Final NO GROWTH AFTER 5 DAYS INCUBATION 09/09/19 16:30 Back Gram Stain - Final 09/09/19 16:30 Back Wound Culture - Final Escherichia Coli Bacteroides Fragilis Campylobacter Gracilis 09/16/19 01:30 Stool Gram Stain - Final 09/16/19 01:30 Stool Clostridioides difficile Antigen - Final 09/16/19 01:30 Stool Clostridioides difficile Toxin Assay - Final 09/14/19 10:27 Back Gram Stain - Final 09/14/19 10:27 Back Wound Culture - Final NO AEROBIC OR ANAEROBIC GROWTH OBTAINED. 09/14/19 10:24 Back Gram Stain - Final 09/14/19 10:24 Back Wound Culture - Final NO AEROBIC OR ANAEROBIC GROWTH OBTAINED. 09/14/19 10:26 Back Gram Stain - Final 09/14/19 10:26 Back Wound Culture - Final NO AEROBIC OR ANAEROBIC GROWTH OBTAINED. 09/09/19 14:53 Urine - Urine - Catheterized Urine Culture - Final NO GROWTH OBTAINED Problem List - Problems (1) PANCHO (acute kidney injury) Code(s): N17.9 - ACUTE KIDNEY FAILURE, UNSPECIFIED (2) Wound infection after surgery Code(s): T81.49XA - INFECTION FOLLOWING A PROCEDURE, OTHER SURGICAL SITE, INIT (3) Hx of decompressive lumbar laminectomy Code(s): Z98.890 - OTHER SPECIFIED POSTPROCEDURAL STATES Assessment/Plan Thoraco-lumbar spine infection/abscess s/p I+D POD#4 PANCHO C.diff Ag +/ toxin neg Anemia -- continue Ceftriaxone -- latest wound culture no growth, previous culture results noted -- pain control -- monitor renal function, improving
[2019-09-22] MEDS: CHLORHEXIDINE GLUCONATE 4% CLEANSER FOR DECOLONIZATION TP SCH (21:43)
[2019-09-23] MEDS: HYDROmorphone *PCA* 10MG/50ML DISP.SYRIN PCA SCH (02:16)
[2019-09-23] MEDS: LACTOBACILLUS ACIDOPHILUS 1 TABLET PO SCH ×3 (05:32→22:07)
[2019-09-23] MEDS: diazePAM 5 MG TABLET PO SCH (05:32)
[2019-09-23] MEDS: VANCOMYCIN 250 MG/5 ML ORAL SOLUTION PO SCH ×4 (05:33→19:00)
[2019-09-23 07:09] LABS: BASO % 0.9 % (0-2.0); HEMATOCRIT 28.5 % (32.4-45.2); HEMOGLOBIN 9.5 GM/dL (10.7-15.3); LYMPH % 14.3 % (8-40); MCH 27.4 pg (25.7-33.7); MCHC 33.3 g/dl (32.0-36.0); MEAN CELL VOLUME 82.4 fl (80-96); MEAN PLT VOLUME 6.5 fl (7.5-11.1); MONO % 8.6 % (3.8-10.2); NEUT % 71.2 % (42.8-82.8); PLATELET COUNT 444 K/MM3 (134-434); RBC 3.46 M/mm3 (3.60-5.2); RDW 15.9 % (11.6-15.6); WHITE BLOOD COUNT 10.8 K/mm3 (4.0-10.0)
[2019-09-23 07:44] LABS: ALBUMIN 1.8 g/dl (3.4-5.0); BILIRUBIN,TOTAL 0.2 mg/dL (0.2-1); BLOOD UREA NITROGEN 29.6 mg/dL (7-18); CALCIUM 8.8 mg/dL (8.5-10.1); CREATININE 3.7 mg/dL (0.55-1.3); POTASSIUM 3.1 mmol/L (3.5-5.1)
[2019-09-23] MEDS ORDERED: POTASSIUM CHLORIDE TABS 20 MEQ TABLET.ER (FP) PO ONE ×2 (07:47→16:00)
[2019-09-23] MEDS ORDERED: LABETALOL HCL 100 MG TABLET (FP) PO ONE (08:08)
[2019-09-23] MEDS ORDERED: cefTRIAXone SODIUM 1 GM VIAL ONE (08:45)
[2019-09-23] MEDS ORDERED: DEXTROSE 5%-WATER - 50 ML IVPB ONE (08:45)
--- NOTE | 2019-09-23 08:47 | PN ---
Progress Note (short form) - Note Progress Note: P 85,BP 171/67 and Spo2 98 on RA.Patient stable and has pain score of 3-4/ 10.She only used 3.5 mg of Dilaudid BIOINFORMATICS PROGRAMMER in last 24 hrs.So will Dc BIOINFORMATICS PROGRAMMER today and will put patient on PO pain medication.No any anesthesia related problem.Patient Dc from the anesthesia care.
--- NOTE | 2019-09-23 08:57 | OP ---
Date of Operation: 09/16/2019 Surgeon: Eliezer Villa M.D. Frickertron Checker: Elder Villa M.D. Pre-Operative Diagnosis: Deep thoracolumbar spine infection. Post-Operative Diagnosis: Deep thoracolumbar spine infection. Surgical Procedure: 1. Incision, drainage, debridement, and irrigation deep lumbar spine wound abscess (subfascial). (07876) 2. Application of negative pressure therapy wound vac ([id number]) Anesthesia: General endotracheal tube anesthesia. Position: Prone. Incision: Midline. Estimated Blood Loss: Minimal. Intravenous Fluid: 800cc crystalloid. Drains: 1 x WoundVac. Complications: None. Urine Output: See anesthesia record. Bacteriology: 3 x wound culture sticks. Closure: Application of wound vac. Indications: The patient is a 68-year-old female who was indicated for a incision, drainage, irrigation, and debridement of her posterior thoracolumbar spine wound to evacuate and treat local wound contamination. The patient was identified in the holding area by her arm band. A long discussion was held with the patient regarding the risks, benefits, and alternatives of the above-named procedure. The risks include, but are not limited to: Pain, bleeding, infection, damage to surrounding structures (including nerves, blood vessels, skin, ligaments, tendons, and bone), dysphagia, dysphonia, nerve palsy, wound complications, pseudarthrosis, failure of fusion, failure of hardware/implants/reduction, need for further surgery, blood clots, myocardial infarction, pulmonary embolism, cerebrovascular event, anesthesia complications, neurological injury, loss of function, and . Benefits as mentioned above. Alternatives include no surgery. All questions were answered. The patient understood and agreed to the procedure. Informed consent was obtained, witnessed, and verified. The patient was taken to the operating room after being seen by the anesthesia and nursing staff. Procedure: The patient was brought into the operating room, placed on the OR table and secured with a safety strap. Consent and the operative site was again verified with the patient and nursing and anesthesia staff. Anesthesia was then administered. A time-out was then done led by , the attending surgeon. Following intubation, the patient excessively defecated loose stool. Once she was cleaned up, the patient was then safely placed in a prone position with all bony prominences well-padded on a Bandar frame with strict attention paid to maintenance of sagittal vertical alignment. The arms were placed on well-padded arm boards and maintained with standard forward flexion, abduction, and external rotation of the shoulders, and flexion of the elbows. Special attention was given to the safe positioning of the cervical spine. The patients eyes, and belly were all free. The table was placed in 5 degrees of reverse Trendelenburg position to avoid ophthalmic vein congestion. The posterior thoracolumbar spine wound site was then prepped and draped in the standard sterile fashion using betadine prep and scrub, wiped off with alcohol, and Duraprep applied. Pre-operative imaging was available for intra-operative evaluation. Time-out was again done, and the case began. The entirety of the previously made thoracolumbar spine incision was opened. All Lautenbach #1 PDS sutures were removed. All packing was removed. Culture swab sticks were used to swab the wound (deep and superficial) and sent to the lab. All hardware was exposed. The wound dimensions were measured as follows: Length: 30cm. Width: 10cm. Depth: 10cm. There was no wound purulence, malodor, and minimal soft tissue necrosis. There was healthy, bleeding granulation tissue overlying the rectus spinae muscles and dura, indicative of excellent angiogenesis. The granulation tissue overlying the erector spinae musculature had a shiny appearance and slippery texture. The was a thin layer of Fibrinous slough overlying the rectus spinae musculature , bone, subcutaneous tissue, and wound margins. The wound was irrigated with normal saline solution. All soft tissues and hardware were and mechanically debrided using multiple sponges with betadine soap. The wound was then irrigated with 3L normal saline solution. The wound was filled with 50% normal saline and 50% betadine solution. The wound was soaked in dilution betadine solution for 3 minutes. The wound was then irrigated with another 3L normal saline solution. Closure: Despite excellent infection control, the wound was not ready for delayed primary closure. With, hemostasis was assured, and the wound was packed with WoundVac sponges. The superficial and deep tissues were approximated using #1 PDS monofilament sutures using Lautenbach sepsis suture technique. The skin was then cleaned, dried, and painted with DuraPrep. Adhesive Ioban and WoundVac dressing was applied. A tongue-type sponge was utilized to place the WoundVac suction device to the side of the patient's flank, so that she wouldn't be lying directly on it. The WoundVac was activated with 125mmHg negative pressure therapy. There was no suction leak. The sponges contracted into the wound, demonstrating successful WoundVac placement. Sponge and needle counts were correct at the end of the case, and I, the attending surgeon, was present and scrubbed throughout the case. The patient was then transferred to a supine position on a hopital bed. The patient was then extubated by the anesthesia staff without incident or complications and was then transferred to the recovery room in stable condition having tolerated the procedure well. Eliezer Villa M.D. [id number] MTDD
[2019-09-23] MEDS: CEFTRIAXONE 1 GM in DEXTROSE 5%-WATER - 50 ML IVPB SCH (09:03)
[2019-09-23] MEDS: amLODIPine BESYLATE 10 MG TABLET (FP) PO SCH (09:04)
[2019-09-23] MEDS: ESCITALOPRAM OXALATE 10 MG TABLET (FP) PO SCH ×2 (09:04→11:17)
[2019-09-23] MEDS: SODIUM BICARBONATE 650 MG TABLET PO SCH ×3 (09:04→22:08)
[2019-09-23] MEDS: PANTOPRAZOLE SODIUM 40 MG VIAL IVPUSH SCH (09:05)
--- NOTE | 2019-09-23 09:17 | PN ---
Progress Note (short form) - Note Progress Note: 68F s/p L1-S1 posterior decompression & T11-S1 instrumented fusion (08/26/2019) p/w 400cc epidural abscess (09/09/2019) now s/p I&D posterior thoracolumbar spine w/delayed primary closure POD #5. Pain well controlled. No acute events overnight. Pt. denies overnight history of headaches, chest pain, shortness of breath, nausea, vomiting, chills, & sweats. (+) Baird; (+) Flatus; (+) BM/rectal tube. Minimal PT this weekend. All labs and vitals reviewed. PE: AAO x 3, NAD. T/L-Spine: Incision, dressing C/D/I. Drains intact, in place; serosanguinous drainage, clot . B/L LE NV status at baseline. 68F s/p L1-S1 posterior decompression & T11-S1 instrumented fusion (08/26/2019) p/w 400cc epidural abscess (09/09/2019) now s/p I&D posterior thoracolumbar spine w/delayed primary closure POD #5. -Patient has been bedbound for weeks; all lower extremity joints are stiff and lower extremity musculature has atrophied & weakened. -Mobilize bed to chair with physical therapy team at least BID with ambulation/ gait training as well. -Patient is to flex & extend ankles, knees, and hips throughout the day - especially when not working with physical therapy team. -f/u w/ Dr. Tesfaye (ID team) treatment plan for GI C. Diff infection: I.E. length of treatment with PO Vancomycin, & when to transition to regular diet. -f/u plan for 6 weeks of anti-biotic coverage: IV Ceftriaxone (will need PICC line) VS oral equivalent. -f/u drain output: drains to remain in place for 1-2 more days. -Pain medication: transition to oral meds; NO NSAID's. -Offload heals with rolled towels under ankles to avoid heel ulcers/pressure sores. -Log roll q2h/place on wedge pillows to avoid sacral decubitus ulcer formation. -Attentive perineal hygiene. -PT/OT/Rehab, out of bed and ambulating with assistance. -WBAT B/L LE. -f/u daily labs. -DVT PPx: -Mechanical only: VLADISLAV's, SCD's. -Incentive spirometry q5-10 min. -B/L UE & LE NV checks. -No heavy lifting (>5 lbs), bending or twisting x 6 months post op. -Care per ICU, ID, renal, hematology & medical hospitalist teams. -Discharge planning: plan to d/c back to [place] when medically fit - hopefully this week. -Will follow. Eliezer Villa MD (Orthopaedic Surgery).
--- NOTE | 2019-09-23 09:55 | PN ---
Progress Note (short form) - Note Progress Note: Hospitalist Medicine Improved pain today. Per anesthesia, will d/c MEDICAL RESEARCHER Vitals 09/23/19 09/23/19 05:34 08:00 Temperature 98.9 F Pulse Rate 80 Respiratory 16 Rate Blood Pressure 176/67 H Physical Exam GENERAL: resting in bed, in NAD HEENT: NCAT, dry MM NECK: Trachea midline, full range of motion, supple. LUNGS: CTA b/l. no accessory m usage HEART: S1, S2 RRR. no r/m/g BACK: unable to turn, limited ROM ABDOMEN: soft, nontender , nondistended EXTREMITIES: no pedal edema. pulses intact NEUROLOGICAL: wood technologist 2-12 grossly intact. however able to move UE, LE +tapia +rectal tube Laboratory Tests 09/21/19 09/21/19 09/22/19 06:15 06:15 12:30 WBC Hgb Hct Plt Count Sodium Potassium Chloride Carbon Dioxide BUN Creatinine Random Glucose Albumin U Free [place] Light Ch U Free Lambda Light Ch U Free [place]/Lambda 24 IgG 773 IgA 188 IgM 28 EDUIN M-[place] Pending Serum EDUIN Interpret Pending IEP IgG Pending IEP IgA Pending IEP IgM Pending Free [place] LC, Quant Pending Free Lambda LC, Quant Pending Free [place]/Lambda Ratio Pending 09/22/19 09/23/19 09/23/19 14:00 06:01 06:01 WBC 10.8 H Hgb 9.5 L Hct 28.5 L Plt Count 444 H Sodium 143 Potassium 3.1 L Chloride 112 H Carbon Dioxide 18 L BUN 29.6 H Creatinine 3.7 H Random Glucose 78 Albumin 1.8 L U Free [place] Light Ch Pending U Free Lambda Light Ch Pending U Free [place]/Lambda 24 Pending IgG IgA IgM EDUIN M-[place] Serum EDUIN Interpret IEP IgG IEP IgA IEP IgM Free [place] LC, Quant Free Lambda LC, Quant Free [place]/Lambda Ratio Microbiology 09/16/19 16:13 Back Gram Stain - Final 09/16/19 16:13 Back Wound Culture - Final NO AEROBIC OR ANAEROBIC GROWTH OBTAINED. 09/16/19 01:30 Stool Gram Stain - Final 09/16/19 01:30 Stool Clostridioides difficile Antigen - Final 09/16/19 01:30 Stool Clostridioides difficile Toxin Assay - Final 09/14/19 10:27 Back Gram Stain - Final 09/14/19 10:27 Back Wound Culture - Final NO AEROBIC OR ANAEROBIC GROWTH OBTAINED. 09/14/19 10:26 Back Gram Stain - Final 09/14/19 10:26 Back Wound Culture - Final NO AEROBIC OR ANAEROBIC GROWTH OBTAINED. 09/14/19 10:24 Back Gram Stain - Final 09/14/19 10:24 Back Wound Culture - Final NO AEROBIC OR ANAEROBIC GROWTH OBTAINED. 09/12/19 15:28 Blood - Peripheral Venous Blood Culture - Final NO GROWTH AFTER 5 DAYS INCUBATION 09/12/19 15:20 Blood - Peripheral Venous Blood Culture - Final NO GROWTH AFTER 5 DAYS INCUBATION 09/09/19 16:30 Back Gram Stain - Final 09/09/19 16:30 Back Wound Culture - Final Escherichia Coli Bacteroides Fragilis Campylobacter Gracilis 09/09/19 14:53 Urine - Urine - Catheterized Urine Culture - Final NO GROWTH OBTAINED Imaging 09/09/19: CXR: s/p anterior cervical fusion. ortho hardware in the lower thoracic, upper lumbosacral spine. cardiomegaly. uncoiled thoracic aorta. no evidence of pneumothorax or large pl effusion. no evidence of pulm edema. linear opacities are noted in the right mid lung zone atelectatic changes. 09/15/19: Renal sono: nonobstructing R renal calculus 1.1cm echogenic focus lower pole R kidney 09/15/19: Abd sono: fatty infiltration of enlarged liver, cholelithiasis, nonobstructing R renal calculus, R renal cyst Assessment/Plan 68 y/o F with no significant PMH who presents s/p L1-S1 posterior decompression & T11-S1 instrumented fusion (08/26/2019) now p/w wound infection. #s/p L1-S1 posterior decompression & T11-S1 instrumented fusion (08/26/2019) -s/p multiple I&D, most recent repeat washout, debridement thoracolumbar spine -d/c zosyn. started on rocephin (09/18). will likely need PICC 6 wks -also on vanco, c. diff dosing. -recent cx (-) -incentive spirometer -pain control: to d/c MEDICAL RESEARCHER pump transitioned to danilo PRN -rectal tube for decompression, cont per sx -ID: Dr. Tesfaye -Sx: Dr. Villa #M spike -differentials - MGUS, MM, but likely 2/2 infection, inflammation -repeat when clinically stable -f/u light chains, protein w/u - in process -heme/onc: Dr. Finn #PANCHO vs. PANCHO on CKD - improving -c/w IVF; NS 100 cc/hr -Fena 1.4% intrinsic could be ATN -c/t monitor -c/w sodium bicarb -nephro: Dr. Loo #R/o c. diff -with c. diff ag (+) however toxin (-) -started on vanc 125mg PO q6h prophylactically -f/u stool ova and parasite -ID: Dr. Tesfaye #F/E/N IV 1/2 NS 83 cc/hr continue to follow lytes regular diet #PPX mechanical only- SCD/TEDs GI: protonix #Dispo ICU monitoring per sx, to [facility] when medically stable may need PICC <Soha Reilly - Last Filed: 09/23/19 16:17> - Note Progress Note: Seen and examined; agree with above aside from as supplemented below by myself. Personally verified all historical information and yang PE findings. Independently reviewed all labs and diagnostics. I discussed the case at length with the resident and consulting services. All questions answered. Seen in ICU Diarrheal symptoms improved and she states she si deeling well. She has no new complaints to offer today. Again counseled regarding her concerns surrounding discharge. she continues to have pain but it is controlled. GENERAL: The patient is awake, alert, and fully oriented, in no acute distress. HEAD: Normal with no signs of trauma. EYES: PERRL, extraocular movements intact, sclera anicteric, conjunctiva clear. No ptosis. ENT: Ears normal, nares patent, oropharynx clear without exudates, moist mucous membranes. NECK: Trachea midline, full range of motion, supple. LUNGS: Breath sounds equal, clear to auscultation bilaterally, no wheezes, no crackles, no accessory muscle use. HEART: Regular rate and rhythm, S1, S2 without murmur, rub or gallop. ABDOMEN: Soft, nontender, nondistended, normoactive bowel sounds EXTREMITIES: 2+ pulses, warm, well-perfused, no edema. Moves all 4 with normal strength. NEUROLOGICAL: Cranial nerves II through XII grossly intact. Normal speech, gait not observed. PSYCH: Normal mood, normal affect. SKIN: Warm, dry, normal turgor, no rashes or lesions noted. Post op wound dressings are c/d/i and wound vac is attached. Problems include: -Postoperative wound infection (apparently going for fifth debridement; will discuss with surgical services) -Cdif (no s/s worsening sepsis, completing per ID) -PANCHO on CKD (Nephrology consulted; renal function continues to improve) -Acute blood loss anemia (sgy requests h/h be kept >08/14) -Acute on chronic back pain -Morbid obesity -hypoalbuminemia -elevated alk phos; normalized but with mild dilation of CBD on US. Non-urgent MRCP can be done as OP provided her CMP and symptoms remain stable. Not having abdominal pain. Does have gallstones without evidence of -itis -acute on chronic back pain s/p operative fixation -Non-obstructing R-renal calculus -M spike (continue to followup recs per Dr. Finn) Full Code Continue SCDs GI px if continued NPO Dispo pending final abx course and postoperative healing. Spoke with patient and family at length; they have the perception that when she was discharged the last time that contributed to the infection starting. I explained to them at length that this likely was not the causation and they did verbalize understanding. Overall they remain inpatient for ongoing treatemtn for the acute infetious diarrhea and posoperative wound infection. Continue abx per ID and will need PICC prior to DC for further care. Will need placement at rehab. She has been working with PT and has progressed some over the weekend. Her pain is controlled and sj is monitoring her progress. <Christopher Goodwin - Last Filed: 09/27/19 13:09>
[2019-09-23 10:21] LABS: ANISOCYTOSIS 1+; MACROCYTOSIS 0; PLATELET ESTIMATE INCREASED
--- NOTE | 2019-09-23 12:13 | PN ---
Physical Exam: SUBJECTIVE: Patient seen and examined on AM bedside rounds. Agrees with surgery plan to see PT 2x today for OOB to chair. Appears determined to get to rehab mid-week. Patient refuses lexapro / valium consistently, states she wants them discontinued. Potassium repleted, will give additional doses this afternoon given consistently low values. OBJECTIVE: Vital Signs Period Temp Pulse Resp BP Sys/No Pulse Ox Last 24 Hr 98 F-98.9 F 80-90 14-20 146-176/54-74 94-96 GENERAL: AOx3, endorses intermittent back pain. HEAD: Normal with no signs of trauma, EOMI, no scleral icterus, no ptosis, moist mucous membranes, trachea midline. LUNGS: Clear B/L, clear to auscultation, no wheezes, no crackles, no accessory muscle use. HEART: RRR, S1, S2 without murmur, rub or gallop. ABDOMEN: Soft, nontender, nondistended, normoactive bowel sounds, no guarding. EXTREMITIES: 2+ pulses, warm, well-perfused, no edema, SCDs in place. NEUROLOGICAL: Normal speech, gait not observed. PSYCH: Tearful affect. SKIN: Warm, dry, no rashes noted Laboratory Results - last 24 hr 09/21/19 09/23/19 09/23/19 06:15 06:01 06:01 WBC 10.8 H RBC 3.46 L Hgb 9.5 L Hct 28.5 L MCV 82.4 MCH 27.4 MCHC 33.3 RDW 15.9 H Plt Count 444 H MPV 6.5 L Absolute Neuts (auto) 7.7 Neutrophils % 71.2 Neutrophils % (Manual) 71.4 Band Neutrophils % 1.0 Lymphocytes % 14.3 Lymphocytes % (Manual) 9.2 Monocytes % 8.6 Monocytes % (Manual) 2 L Eosinophils % 5.0 H Eosinophils % (Manual) 10.2 H D Basophils % 0.9 Basophils % (Manual) 3.1 H D Myelocytes % (Man) 1 D Promyelocytes % (Man) 0 Blast Cells % (Manual) 0 Nucleated RBC % 0 Metamyelocytes 1 D Hypochromia 1+ Platelet Estimate Increased Polychromasia 1+ Poikilocytosis 0 Anisocytosis 1+ Microcytosis 0 Macrocytosis 0 Sodium 143 Potassium 3.1 L Chloride 112 H Carbon Dioxide 18 L Anion Gap 13 BUN 29.6 H Creatinine 3.7 H Est GFR (CKD-EPI)AfAm 13.59 Est GFR (CKD-EPI)NonAf 11.73 Random Glucose 78 Calcium 8.8 Total Bilirubin 0.2 AST 11 L ALT 13 Alkaline Phosphatase 88 Total Protein 5.0 L Albumin 1.8 L IgG 773 IgA 188 IgM 28 Active Medications Generic Name Dose Route Start Last Admin Trade Name Freq PRN Reason Stop Dose Admin Amlodipine Besylate 10 mg 09/22/19 10:00 09/23/19 09:04 Norvasc - PO 10 mg DAILY FARAZ Administration Benzocaine/Menthol 1 each 09/19/19 00:48 Cepacol Lozenge - MM PRN PRN SORE THROAT Chlorhexidine Gluconate 1 applic 09/19/19 22:00 09/22/19 21:43 Hibiclens For Decolonization - TP 1 applic HS FARAZ Administration Ceftriaxone Sodium 1 gm/ 50 mls @ 100 mls/hr 09/19/19 10:00 09/23/19 09:03 Dextrose IVPB 100 mls/hr DAILY FARAZ Administration Protocol Sodium Chloride 1,000 mls @ 100 mls/hr 09/19/19 15:00 09/22/19 17:27 1/2 Normal Saline IV 100 mls/hr ASDIR FARAZ Administration Lactobacillus Acidophilus 1 tab 09/19/19 06:00 09/23/19 05:32 Bacid - PO 1 tab TID FARAZ Administration Mupirocin 1 applic 09/19/19 10:00 09/22/19 21:43 Bactroban Ointment (For Decolonization) - NS 09/24/19 09:59 Not Given BID FARAZ Ondansetron HCl 4 mg 09/19/19 00:48 Zofran Injection IVPUSH Q6H PRN NAUSEA AND/OR VOMITING Oxycodone HCl 10 mg 09/23/19 08:48 Roxicodone - PO Q4H PRN PAIN LEVEL 6-10 Pantoprazole Sodium 40 mg 09/19/19 10:00 09/23/19 09:05 Protonix Iv IVPUSH 40 mg DAILY FARAZ Administration Sodium Bicarbonate 650 mg 09/20/19 22:00 09/23/19 09:04 Sodium Bicarbonate - PO 650 mg BID FARAZ Administration Vancomycin HCl 125 mg 09/19/19 06:00 09/23/19 05:33 Vancomycin Oral Solution PO 125 mg Q6HPO FARAZ Administration ASSESSMENT/PLAN: 68F with no significant PMH, history of multiple spinal surgeries: 08/26/19: L1-S1 posterior decompression & T11-S1 instrumented fusion 09/09/19: I&D posterior thoracolumbar spine 09/11/19: I&D with wound vac application 09/14/19: I&D with debridement thoracolumbar spine, exchanged wound vac 09/16/19: Repeat I&D 09/18/19: I&D with complex wound closure (POD#5) #Neuro - POD#5 after washout and closure - AAOx3 - Analgesia: ACADEMIC ADVISING DIRECTOR, patient refuses valium, discontinued - Physical Therapy, plan for 2x OOB to chair today - Started Lexapro as patient has been tearful and depressed on exam - patient refuses, discontinued #Cardio - Hypertensive, continue on Norvasc 5mg daily - Received 1 time dose of labetalol 100 mg PO - Monitor BP #Pulm - Maintain O2 saturation >90% - Incentive spirometry encouraged #GI - C Diff positive, Vanco 125mg PO Q6H started 09/16 - Rectal tube in place since 09/13 #ID - ID recs: Continue Ceftriaxone, Zosyn D/Max - plan for oral coverage in rehab - C Diff positive, Vanco 125mg PO Q6H - Plan for d/c date for Vanco - Ova and Parasites negative, F/u second O&P study - Wound cx 09/09: Campylobacter Gracilis, E coli, Bacteroides Fragilis - No leukocytosis, afebrile #Renal - Cr downtrending, daily trend 1.1 -> 2.6 -> 3.5 -> 3.7 -> 4.0 -> 4.4 -> 4.5 - > 4.5 -> 4.4 -> 4.2 -> 4.0 -> 3.7 - Differential for worsening renal function: PANCHO/Hypoperfusion due to infection/ abcess vs. AIN from abx vs. hemodynamic injury hypoperfusion - Renal recs: No need for HD, trend labs - Baird in place #Heme - Heme/Onc consulted for M-spike detected on labs - M spike likely 2/2 infection/surgery/inflammation but differential includes MGUS/smoldering MM. Light chains and proteins labs ordered. - Recommended to repeat when clinically stable #Prophylaxis - VLADISLAV, SCD - Protonix 40mg IV #FEN - 1/2 N/S @100 - Regular diet #Disposition - Disposition as per surgery, stable for transfer to floors Visit type - Emergency Visit Emergency Visit: Yes ED Registration Date: 09/09/19 Care time: The patient presented to the Emergency Department on the above date and was hospitalized for further evaluation of their emergent condition. - New Patient This patient is new to me today: No - Critical Care Critical Care patient: Yes Total Critical Care Time (in minutes): 36 Critical Care Statement: The care of this patient involved high complexity decision making to prevent further life threatening deterioration of the patient 's condition and/or to evaluate & treat vital organ system(s) failure or risk of failure. ATTENDING PHYSICIAN STATEMENT I saw and evaluated the patient. I reviewed the resident's note and discussed the case with the resident. I agree with the resident's findings and plan as documented. SUBJECTIVE: OBJECTIVE: ASSESSMENT AND PLAN:
--- NOTE | 2019-09-23 12:17 | PN ---
Teaching Attending Note Name of Resident: Troy Quiroz ATTENDING PHYSICIAN STATEMENT I saw and evaluated the patient. I reviewed the resident's note and discussed the case with the resident. I agree with the resident's findings and plan as documented. SUBJECTIVE: Pt seen and examined in the ICU. Pain controlled. Working with PT. OBJECTIVE: Vital Signs Period Temp Pulse Resp BP Sys/No Pulse Ox Last 24 Hr 98 F-98.9 F 80-90 14-20 146-176/54-74 94-96 Gen: NAD at rest Heart: RRR Lung: decreased breath sounds at the bases Abd: soft, nontender Ext: no edema CBC, BMP 09/23/19 06:01 09/23/19 06:01 Active Medications Amlodipine Besylate (Norvasc -) 10 mg PO DAILY [facility] Last Admin: 09/23/19 09:04 Dose: 10 mg Benzocaine/Menthol (Cepacol Lozenge -) 1 each MM PRN PRN PRN Reason: SORE THROAT Chlorhexidine Gluconate (Hibiclens For Decolonization -) 1 applic TP HS [facility] Last Admin: 09/22/19 21:43 Dose: 1 applic Ceftriaxone Sodium 1 gm/ (Dextrose) 50 mls @ 100 mls/hr IVPB DAILY [facility]; Protocol Last Admin: 09/23/19 09:03 Dose: 100 mls/hr Sodium Chloride (1/2 Normal Saline) 1,000 mls @ 100 mls/hr IV ASDIR [facility] Last Admin: 09/22/19 17:27 Dose: 100 mls/hr Lactobacillus Acidophilus (Bacid -) 1 tab PO TID [facility] Last Admin: 09/23/19 05:32 Dose: 1 tab Mupirocin (Bactroban Ointment (For Decolonization) -) 1 applic NS BID [facility] Stop: 09/24/19 09:59 Last Admin: 09/22/19 21:43 Dose: Not Given Ondansetron HCl (Zofran Injection) 4 mg IVPUSH Q6H PRN PRN Reason: NAUSEA AND/OR VOMITING Oxycodone HCl (Roxicodone -) 10 mg PO Q4H PRN PRN Reason: PAIN LEVEL 6-10 Pantoprazole Sodium (Protonix Iv) 40 mg IVPUSH DAILY [facility] Last Admin: 09/23/19 09:05 Dose: 40 mg Sodium Bicarbonate (Sodium Bicarbonate -) 650 mg PO BID [facility] Last Admin: 09/23/19 09:04 Dose: 650 mg Vancomycin HCl (Vancomycin Oral Solution) 125 mg PO Q6HPO [facility] Last Admin: 09/23/19 05:33 Dose: 125 mg ASSESSMENT AND PLAN: Thoracolumbar spine wound infection/Abscess s/p I&D Acute Kidney Injury Anemia +C diff Ag - continue antibiotics per ID - pain control - incentive spirometry - IVF - monitor urine output, creatinine - replete lytes - DVT prophylaxis - disposition per surgery
[2019-09-23] MEDS: MUPIROCIN 2% TOPICAL OINTMENT FOR DECOLONIZATION NS SCH ×2 (12:24→22:07)
--- NOTE | 2019-09-23 13:35 | PN ---
Progress Note, Physician History of Present Illness: Pt seen and examined at bedside. She is awake and alert. She denies shortness of breath. - Current Medication List Current Medications: Active Medications Amlodipine Besylate (Norvasc -) 10 mg PO DAILY [facility] Last Admin: 09/23/19 09:04 Dose: 10 mg Benzocaine/Menthol (Cepacol Lozenge -) 1 each MM PRN PRN PRN Reason: SORE THROAT Chlorhexidine Gluconate (Hibiclens For Decolonization -) 1 applic TP HS [facility] Last Admin: 09/22/19 21:43 Dose: 1 applic Ceftriaxone Sodium 1 gm/ (Dextrose) 50 mls @ 100 mls/hr IVPB DAILY [facility]; Protocol Last Admin: 09/23/19 09:03 Dose: 100 mls/hr Sodium Chloride (1/2 Normal Saline) 1,000 mls @ 100 mls/hr IV ASDIR [facility] Last Admin: 09/22/19 17:27 Dose: 100 mls/hr Lactobacillus Acidophilus (Bacid -) 1 tab PO TID [facility] Last Admin: 09/23/19 05:32 Dose: 1 tab Mupirocin (Bactroban Ointment (For Decolonization) -) 1 applic NS BID [facility] Stop: 09/24/19 09:59 Last Admin: 09/23/19 12:24 Dose: 1 applic Ondansetron HCl (Zofran Injection) 4 mg IVPUSH Q6H PRN PRN Reason: NAUSEA AND/OR VOMITING Oxycodone HCl (Roxicodone -) 10 mg PO Q4H PRN PRN Reason: PAIN LEVEL 6-10 Pantoprazole Sodium (Protonix Iv) 40 mg IVPUSH DAILY [facility] Last Admin: 09/23/19 09:05 Dose: 40 mg Potassium Chloride (K-Dur -) 40 meq PO ONCE ONE Stop: 09/23/19 16:01 Sodium Bicarbonate (Sodium Bicarbonate -) 650 mg PO BID [facility] Last Admin: 09/23/19 09:04 Dose: 650 mg Vancomycin HCl (Vancomycin Oral Solution) 125 mg PO Q6HPO [facility] Last Admin: 09/23/19 12:22 Dose: 125 mg - Objective Vital Signs: Vital Signs Temperature 98.3 F 09/23/19 10:00 Pulse Rate 78 09/23/19 12:00 Respiratory Rate 18 09/23/19 12:00 Blood Pressure 142/56 L 09/23/19 12:00 O2 Sat by Pulse Oximetry (%) 94 L 09/23/19 10:00 Constitutional: Yes: Calm Eyes: Yes: Conjunctiva Clear HENT: Yes: Atraumatic Cardiovascular: Yes: S1, S2 Respiratory: Yes: CTA Bilaterally Gastrointestinal: Yes: Soft, Abdomen, Obese Genitourinary: Yes: Baird Present Edema: Yes Edema: LLE: Trace, RLE: Trace Neurological: Yes: Oriented Psychiatric: Yes: Oriented Labs: CBC, BMP 09/23/19 06:01 09/23/19 06:01 INR, PTT INR 1.69 (0.83-1.09) H 09/13/19 05:45 Problem List - Problems (1) PANCHO (acute kidney injury) Code(s): N17.9 - ACUTE KIDNEY FAILURE, UNSPECIFIED (2) Hypokalemia Code(s): E87.6 - HYPOKALEMIA (3) Wound infection after surgery Code(s): T81.49XA - INFECTION FOLLOWING A PROCEDURE, OTHER SURGICAL SITE, INIT (4) Hx of decompressive lumbar laminectomy Code(s): Z98.890 - OTHER SPECIFIED POSTPROCEDURAL STATES Assessment/Plan Current Medications Generic Name Dose Route Start Last Admin Trade Name Freq PRN Reason Stop Dose Admin Amlodipine Besylate 10 mg 09/22/19 10:00 09/23/19 09:04 Norvasc - PO 10 mg DAILY [facility] Administration Benzocaine/Menthol 1 each 09/19/19 00:48 Cepacol Lozenge - MM PRN PRN SORE THROAT Chlorhexidine Gluconate 1 applic 09/19/19 22:00 09/22/19 21:43 Hibiclens For Decolonization - TP 1 applic HS [facility] Administration Ceftriaxone Sodium 1 gm/ 50 mls @ 100 mls/hr 09/19/19 10:00 09/23/19 09:03 Dextrose IVPB 100 mls/hr DAILY [facility] Administration Protocol Sodium Chloride 1,000 mls @ 100 mls/hr 09/19/19 15:00 09/22/19 17:27 1/2 Normal Saline IV 100 mls/hr ASDIR [facility] Administration Lactobacillus Acidophilus 1 tab 09/19/19 06:00 09/23/19 05:32 Bacid - PO 1 tab TID [facility] Administration Mupirocin 1 applic 09/19/19 10:00 09/23/19 12:24 Bactroban Ointment (For Decolonization) - NS 09/24/19 09:59 1 applic BID [facility] Administration Ondansetron HCl 4 mg 09/19/19 00:48 Zofran Injection IVPUSH Q6H PRN NAUSEA AND/OR VOMITING Oxycodone HCl 10 mg 09/23/19 08:48 Roxicodone - PO Q4H PRN PAIN LEVEL 6-10 Pantoprazole Sodium 40 mg 09/19/19 10:00 09/23/19 09:05 Protonix Iv IVPUSH 40 mg DAILY [facility] Administration Potassium Chloride 40 meq 09/23/19 16:00 K-Dur - PO 09/23/19 16:01 ONCE ONE Sodium Bicarbonate 650 mg 09/20/19 22:00 09/23/19 09:04 Sodium Bicarbonate - PO 650 mg BID [facility] Administration Vancomycin HCl 125 mg 09/19/19 06:00 09/23/19 12:22 Vancomycin Oral Solution PO 125 mg Q6HPO [facility] Administration Laboratory Tests 09/17/19 09/18/19 09/18/19 05:30 05:25 05:25 EDUIN M-Clarence 0.3 H RADHA Screen Negative c-ANCA <1:20 Proteinase 3 (PR3) <3.5 p-ANCA <1:20 Atypical p-ANCA <1:20 Myeloperoxidase Ab <9.0 Double Strand DNA Ab <1 Glomerular Base Memb Ab 3 1. PANCHO 2. Spine wound infection 3. Hyponatremia in setting of decreased renal function now improved 4. hypokalemia 5. nephrolithiasis Plan - replace potassium - decrease rate of fluids - renal function is improving - repeat labs in am - can cont po bicarb for now - avoid nephrotixins
[2019-09-23] MEDS: SODIUM CHLORIDE 0.45% 1,000 ML IV SCH (14:06)
--- NOTE | 2019-09-23 15:02 | PN ---
Progress Note, Physician History of Present Illness: stable creatinine trending down working with physio - Current Medication List Current Medications: Active Medications Amlodipine Besylate (Norvasc -) 10 mg PO DAILY [facility] Last Admin: 09/23/19 09:04 Dose: 10 mg Benzocaine/Menthol (Cepacol Lozenge -) 1 each MM PRN PRN PRN Reason: SORE THROAT Chlorhexidine Gluconate (Hibiclens For Decolonization -) 1 applic TP HS [facility] Last Admin: 09/22/19 21:43 Dose: 1 applic Ceftriaxone Sodium 1 gm/ (Dextrose) 50 mls @ 100 mls/hr IVPB DAILY [facility]; Protocol Last Admin: 09/23/19 09:03 Dose: 100 mls/hr Sodium Chloride (1/2 Normal Saline) 1,000 mls @ 83 mls/hr IV ASDIR [facility] Last Admin: 09/23/19 14:06 Dose: 83 mls/hr Lactobacillus Acidophilus (Bacid -) 1 tab PO TID [facility] Last Admin: 09/23/19 14:05 Dose: 1 tab Mupirocin (Bactroban Ointment (For Decolonization) -) 1 applic NS BID [facility] Stop: 09/24/19 09:59 Last Admin: 09/23/19 12:24 Dose: 1 applic Ondansetron HCl (Zofran Injection) 4 mg IVPUSH Q6H PRN PRN Reason: NAUSEA AND/OR VOMITING Oxycodone HCl (Roxicodone -) 10 mg PO Q4H PRN PRN Reason: PAIN LEVEL 6-10 Pantoprazole Sodium (Protonix Iv) 40 mg IVPUSH DAILY [facility] Last Admin: 09/23/19 09:05 Dose: 40 mg Potassium Chloride (K-Dur -) 40 meq PO ONCE ONE Stop: 09/23/19 16:01 Sodium Bicarbonate (Sodium Bicarbonate -) 325 mg PO BID [facility] Last Admin: 09/23/19 14:05 Dose: 325 mg Vancomycin HCl (Vancomycin Oral Solution) 125 mg PO Q6HPO [facility] Last Admin: 09/23/19 12:22 Dose: 125 mg - Objective Vital Signs: Vital Signs Temperature 98.3 F 09/23/19 10:00 Pulse Rate 78 09/23/19 12:00 Respiratory Rate 18 09/23/19 12:00 Blood Pressure 142/56 L 09/23/19 12:00 O2 Sat by Pulse Oximetry (%) 94 L 09/23/19 10:00 Constitutional: Yes: No Distress, Calm Cardiovascular: Yes: S1, S2 Respiratory: Yes: Regular, CTA Bilaterally Gastrointestinal: Yes: Normal Bowel Sounds, Soft Musculoskeletal: Yes: Back Pain Extremities: Yes: WNL Wound/Incision: Yes: Dressing Dry and Intact Neurological: Yes: Alert, Oriented Psychiatric: Yes: Alert, Oriented Labs: CBC, BMP 09/23/19 06:01 09/23/19 06:01 INR, PTT INR 1.69 (0.83-1.09) H 09/13/19 05:45 Assessment/Plan Problem List - Problems (1) PANCHO (acute kidney injury) Code(s): N17.9 - ACUTE KIDNEY FAILURE, UNSPECIFIED (2) Wound infection after surgery Code(s): T81.49XA - INFECTION FOLLOWING A PROCEDURE, OTHER SURGICAL SITE, INIT (3) Hx of decompressive lumbar laminectomy Code(s): Z98.890 - OTHER SPECIFIED POSTPROCEDURAL STATES Assessment/Plan Thoraco-lumbar spine infection/abscess s/p I+D POD#4 PANCHO C.diff Ag +/ toxin neg Anemia -- continue Ceftriaxone -- latest wound culture no growth, previous culture results noted -- pain control -- monitor renal function, improving
[2019-09-23] MEDS: CHLORHEXIDINE GLUCONATE 4% CLEANSER FOR DECOLONIZATION TP SCH (22:07)
[2019-09-23] MEDS: oxyCODONE HCL 5 MG TABLET PO PRN (22:08)
[2019-09-24] MEDS: LACTOBACILLUS ACIDOPHILUS 1 TABLET PO SCH ×3 (05:37→21:05)
[2019-09-24] MEDS: VANCOMYCIN 250 MG/5 ML ORAL SOLUTION PO SCH ×6 (05:38→23:59)
[2019-09-24 06:22] LABS: BASO % 1.2 % (0-2.0); EOS % 4.4 % (0-4.5); HEMATOCRIT 26.2 % (32.4-45.2); HEMOGLOBIN 8.7 GM/dL (10.7-15.3); LYMPH % 14.2 % (8-40); MCH 27.1 pg (25.7-33.7); MCHC 33.4 g/dl (32.0-36.0); MEAN CELL VOLUME 81.2 fl (80-96); MEAN PLT VOLUME 6.1 fl (7.5-11.1); MONO % 9.7 % (3.8-10.2); NEUT % 70.5 % (42.8-82.8); PLATELET COUNT 425 K/MM3 (134-434); RBC 3.22 M/mm3 (3.60-5.2); RDW 16.3 % (11.6-15.6); WHITE BLOOD COUNT 10.3 K/mm3 (4.0-10.0)
[2019-09-24 06:43] LABS: ALBUMIN 1.9 g/dl (3.4-5.0); BILIRUBIN,TOTAL 0.2 mg/dL (0.2-1); BLOOD UREA NITROGEN 29.9 mg/dL (7-18); CALCIUM 8.4 mg/dL (8.5-10.1); CREATININE 3.3 mg/dL (0.55-1.3); MAGNESIUM 1.8 mg/dL (1.8-2.4); PHOSPHOROUS 4.3 mg/dL (2.5-4.9); POTASSIUM 3.4 mmol/L (3.5-5.1); TOT PROT 4.8 g/dl (6.4-8.2)
[2019-09-24] MEDS ORDERED: POTASSIUM CHLORIDE TABS 20 MEQ TABLET.ER (FP) PO ONE ×2 (06:47→16:00)
[2019-09-24 07:08] LABS: FREE KAP CHN UR 99.1 mg/L (1.35-24.19); KAPPA LAMBDA RATIO URIN 8.69 (2.04-10.37)
--- NOTE | 2019-09-24 07:30 | PN ---
Physical Exam: SUBJECTIVE: Patient seen and examined by the bedside. Reports improvement in her back pain. OBJECTIVE: Vital Signs Period Temp Pulse Resp BP Sys/No Pulse Ox Last 24 Hr 98 F-98.8 F 78-90 16-18 142-176/42-70 94-94 GENERAL: AOx3 HEAD: Normal with no signs of trauma, EOMI, no scleral icterus, no ptosis, moist mucous membranes, trachea midline. LUNGS: Clear B/L, clear to auscultation, no wheezes, no crackles, no accessory muscle use. HEART: RRR, S1, S2 without murmur, rub or gallop. ABDOMEN: Soft, nontender, nondistended, normoactive bowel sounds, no guarding. EXTREMITIES: 2+ pulses, warm, well-perfused, no edema, SCDs in place. NEUROLOGICAL: Normal speech, gait not observed. SKIN: Warm, dry, no rashes noted Laboratory Results - last 24 hr 09/22/19 09/23/19 09/23/19 14:00 06:01 06:01 WBC 10.8 H RBC 3.46 L Hgb 9.5 L Hct 28.5 L MCV 82.4 MCH 27.4 MCHC 33.3 RDW 15.9 H Plt Count 444 H MPV 6.5 L Absolute Neuts (auto) 7.7 Neutrophils % 71.2 Neutrophils % (Manual) 71.4 Band Neutrophils % 1.0 Lymphocytes % 14.3 Lymphocytes % (Manual) 9.2 Monocytes % 8.6 Monocytes % (Manual) 2 L Eosinophils % 5.0 H Eosinophils % (Manual) 10.2 H D Basophils % 0.9 Basophils % (Manual) 3.1 H D Myelocytes % (Man) 1 D Promyelocytes % (Man) 0 Blast Cells % (Manual) 0 Nucleated RBC % 0 Metamyelocytes 1 D Hypochromia 1+ Platelet Estimate Increased Polychromasia 1+ Poikilocytosis 0 Anisocytosis 1+ Microcytosis 0 Macrocytosis 0 Sodium 143 Potassium 3.1 L Chloride 112 H Carbon Dioxide 18 L Anion Gap 13 BUN 29.6 H Creatinine 3.7 H Est GFR (CKD-EPI)AfAm 13.59 Est GFR (CKD-EPI)NonAf 11.73 Random Glucose 78 Calcium 8.8 Phosphorus Magnesium Total Bilirubin 0.2 AST 11 L ALT 13 Alkaline Phosphatase 88 Total Protein 5.0 L Albumin 1.8 L U Free [place] Light Ch 99.10 H U Free [place] Light Ch 11.40 H U Free [place]/Lambda 24 8.69 09/24/19 09/24/19 05:25 05:25 WBC 10.3 H RBC 3.22 L Hgb 8.7 L Hct 26.2 L MCV 81.2 MCH 27.1 MCHC 33.4 RDW 16.3 H Plt Count 425 MPV 6.1 L Absolute Neuts (auto) 7.3 Neutrophils % 70.5 Neutrophils % (Manual) Band Neutrophils % Lymphocytes % 14.2 Lymphocytes % (Manual) Monocytes % 9.7 Monocytes % (Manual) Eosinophils % 4.4 Eosinophils % (Manual) Basophils % 1.2 Basophils % (Manual) Myelocytes % (Man) Promyelocytes % (Man) Blast Cells % (Manual) Nucleated RBC % 0 Metamyelocytes Hypochromia Platelet Estimate Polychromasia Poikilocytosis Anisocytosis Microcytosis Macrocytosis Sodium 143 Potassium 3.4 L Chloride 113 H Carbon Dioxide 18 L Anion Gap 12 BUN 29.9 H Creatinine 3.3 H Est GFR (CKD-EPI)AfAm 15.61 Est GFR (CKD-EPI)NonAf 13.47 Random Glucose 78 Calcium 8.4 L Phosphorus 4.3 Magnesium 1.8 Total Bilirubin 0.2 AST 9 L ALT 11 L Alkaline Phosphatase 82 Total Protein 4.8 L Albumin 1.9 L U Free [place] Light Ch U Free [place] Light Ch U Free [place]/Lambda 24 Active Medications Generic Name Dose Route Start Last Admin Trade Name Freq PRN Reason Stop Dose Admin Amlodipine Besylate 10 mg 09/22/19 10:00 09/23/19 09:04 Norvasc - PO 10 mg DAILY [facility] Administration Benzocaine/Menthol 1 each 09/19/19 00:48 Cepacol Lozenge - MM PRN PRN SORE THROAT Chlorhexidine Gluconate 1 applic 09/19/19 22:00 09/23/19 22:07 Hibiclens For Decolonization - TP 1 applic HS [facility] Administration Ceftriaxone Sodium 1 gm/ 50 mls @ 100 mls/hr 09/19/19 10:00 09/23/19 09:03 Dextrose IVPB 100 mls/hr DAILY [facility] Administration Protocol Sodium Chloride 1,000 mls @ 83 mls/hr 09/23/19 13:35 09/23/19 14:06 1/2 Normal Saline IV 83 mls/hr ASDIR [facility] Administration Lactobacillus Acidophilus 1 tab 09/19/19 06:00 09/24/19 05:37 Bacid - PO 1 tab TID [facility] Administration Mupirocin 1 applic 09/19/19 10:00 09/23/19 22:07 Bactroban Ointment (For Decolonization) - NS 09/24/19 09:59 1 applic BID [facility] Administration Ondansetron HCl 4 mg 09/19/19 00:48 Zofran Injection IVPUSH Q6H PRN NAUSEA AND/OR VOMITING Oxycodone HCl 10 mg 09/23/19 08:48 09/23/19 22:08 Roxicodone - PO 10 mg Q4H PRN Administration PAIN LEVEL 6-10 Pantoprazole Sodium 40 mg 09/19/19 10:00 09/23/19 09:05 Protonix Iv IVPUSH 40 mg DAILY [facility] Administration Sodium Bicarbonate 325 mg 09/23/19 13:45 09/23/19 22:08 Sodium Bicarbonate - PO 325 mg BID [facility] Administration Vancomycin HCl 125 mg 09/19/19 06:00 09/24/19 05:38 Vancomycin Oral Solution PO 125 mg Q6HPO [facility] Administration ASSESSMENT/PLAN: 68F with no significant PMH, history of multiple spinal surgeries: 08/26/19: L1-S1 posterior decompression & T11-S1 instrumented fusion 09/09/19: I&D posterior thoracolumbar spine 09/11/19: I&D with wound vac application 09/14/19: I&D with debridement thoracolumbar spine, exchanged wound vac 09/16/19: Repeat I&D 09/18/19: I&D with complex wound closure (POD#6) #Neuro - POD#6 after washout and closure - Analgesia: COURT ORDERLY, patient refuses valium, discontinued - Physical Therapy, plan for 2x OOB to chair today - Started Lexapro as patient has been tearful and depressed on exam - patient refuses, discontinued #Cardio - Hypertensive, continue on Norvasc 5mg daily #Pulm - Maintain O2 saturation >90%, incentive spirometry encouraged #GI - C Diff positive, Vanco 125mg PO Q6H started 09/16 - Rectal tube in place since 09/13 #ID - ID recs: Continue Ceftriaxone, Zosyn D/Max - plan for oral coverage in rehab - C Diff positive, Vanco 125mg PO Q6H (started 09/16) - Ova and Parasites negative, F/u second O&P study - Wound cx 09/09: Campylobacter Gracilis, E coli, Bacteroides Fragilis #Renal - Cr downtrending, daily trend 1.1 -> 2.6 -> 3.5 -> 3.7 -> 4.0 -> 4.4 -> 4.5 - > 4.5 -> 4.4 -> 4.2 -> 4.0 -> 3.7 -> 3.3 - Differential for worsening renal function: PANCHO/Hypoperfusion due to infection/ abcess vs. AIN from abx vs. hemodynamic injury hypoperfusion - Renal recs: Continue Bicarb PO - Baird in place #Heme - Heme/Onc consulted for M-spike detected on labs - Urine [place] ratio elevated 99.1./11.4 - M spike likely 2/2 infection/surgery/inflammation but differential includes MGUS/smoldering MM. Light chains and proteins labs ordered. - Recommended to repeat when clinically stable #Prophylaxis - VLADISLAV, SCD - Protonix 40mg IV #FEN - 1/2 N/S @83 - K 3.4, 30mEQ PO ordered - Regular diet #Disposition - Disposition as per surgery, stable for transfer to floors Visit type - Emergency Visit Emergency Visit: Yes ED Registration Date: 09/09/19 Care time: The patient presented to the Emergency Department on the above date and was hospitalized for further evaluation of their emergent condition. - New Patient This patient is new to me today: No - Critical Care Critical Care patient: Yes Total Critical Care Time (in minutes): 37 Critical Care Statement: The care of this patient involved high complexity decision making to prevent further life threatening deterioration of the patient 's condition and/or to evaluate & treat vital organ system(s) failure or risk of failure. ATTENDING PHYSICIAN STATEMENT I saw and evaluated the patient. I reviewed the resident's note and discussed the case with the resident. I agree with the resident's findings and plan as documented. SUBJECTIVE: OBJECTIVE: ASSESSMENT AND PLAN:
[2019-09-24] MEDS ORDERED: cefTRIAXone SODIUM 1 GM VIAL ONE (08:50)
[2019-09-24] MEDS ORDERED: DEXTROSE 5%-WATER - 50 ML IVPB ONE (08:50)
[2019-09-24] MEDS: oxyCODONE HCL 5 MG TABLET PO PRN ×3 (08:52→20:28)
[2019-09-24] MEDS: SODIUM BICARBONATE 650 MG TABLET PO SCH ×2 (09:00→21:05)
[2019-09-24] MEDS: CEFTRIAXONE 1 GM in DEXTROSE 5%-WATER - 50 ML IVPB SCH (09:00)
[2019-09-24] MEDS: amLODIPine BESYLATE 10 MG TABLET (FP) PO SCH (09:00)
[2019-09-24] MEDS: PANTOPRAZOLE SODIUM 40 MG VIAL IVPUSH SCH (09:01)
[2019-09-24 09:39] LABS: ANISOCYTOSIS 2+; MACROCYTOSIS 0; PLATELET ESTIMATE NORMAL; ROULEAU 1+; TEAR DROP CELLS 1+
--- NOTE | 2019-09-24 11:25 | PN ---
Teaching Attending Note Name of Resident: Winston Knott ATTENDING PHYSICIAN STATEMENT I saw and evaluated the patient. I reviewed the resident's note and discussed the case with the resident. I agree with the resident's findings and plan as documented. SUBJECTIVE: Pt seen and examined in the ICU. Sitting in chair. Ambulated a few steps with PT. No fevers or chills. OBJECTIVE: Vital Signs Period Temp Pulse Resp BP Sys/No Pulse Ox Last 24 Hr 98 F-98.9 F 77-90 12-18 142-170/42-70 94-96 Intake & Output 09/21/19 09/22/19 09/23/19 09/24/19 23:59 23:59 23:59 23:59 Intake Total 3350 2500 2700 1096 Output Total 3160 2400 1440 1430 Balance 122 661 2337 -334 Gen: NAD in chair Heart: RRR Lung: decreased breath sounds at the bases Abd: soft, nontender Ext: no edema CBC, BMP 09/24/19 05:25 09/24/19 05:25 Active Medications Amlodipine Besylate (Norvasc -) 10 mg PO DAILY [facility] Last Admin: 09/24/19 09:00 Dose: 10 mg Benzocaine/Menthol (Cepacol Lozenge -) 1 each MM PRN PRN PRN Reason: SORE THROAT Chlorhexidine Gluconate (Hibiclens For Decolonization -) 1 applic TP HS [facility] Last Admin: 09/23/19 22:07 Dose: 1 applic Ceftriaxone Sodium 1 gm/ (Dextrose) 50 mls @ 100 mls/hr IVPB DAILY [facility]; Protocol Last Admin: 09/24/19 09:00 Dose: 100 mls/hr Sodium Chloride (1/2 Normal Saline) 1,000 mls @ 83 mls/hr IV ASDIR [facility] Last Admin: 09/23/19 14:06 Dose: 83 mls/hr Lactobacillus Acidophilus (Bacid -) 1 tab PO TID [facility] Last Admin: 09/24/19 05:37 Dose: 1 tab Ondansetron HCl (Zofran Injection) 4 mg IVPUSH Q6H PRN PRN Reason: NAUSEA AND/OR VOMITING Oxycodone HCl (Roxicodone -) 10 mg PO Q4H PRN PRN Reason: PAIN LEVEL 6-10 Last Admin: 09/24/19 08:52 Dose: 10 mg Pantoprazole Sodium (Protonix Iv) 40 mg IVPUSH DAILY [facility] Last Admin: 09/24/19 09:01 Dose: 40 mg Sodium Bicarbonate (Sodium Bicarbonate -) 325 mg PO BID [facility] Last Admin: 09/24/19 09:00 Dose: 325 mg Vancomycin HCl (Vancomycin Oral Solution) 125 mg PO Q6HPO [facility] Last Admin: 09/24/19 05:38 Dose: 125 mg ASSESSMENT AND PLAN: Thoracolumbar spine wound infection/Abscess s/p I&D Acute Kidney Injury Anemia +C diff Ag - continue antibiotics per ID - pain control - incentive spirometry - IVF - monitor urine output, creatinine - replete lytes - DVT prophylaxis - disposition per surgery
--- NOTE | 2019-09-24 13:43 | PN ---
Progress Note (short form) - Note Progress Note: Hospitalist Medicine Resting in bed, improved mood today. Case d/w [facility] physician (# in chart) - OK for transfer on Monday, will need PICC on . To leave on 5 wks ceftriaxone after d/c Vitals 09/24/19 09/24/19 10:00 12:00 Temperature 98.9 F Pulse Rate 82 Respiratory 14 Rate Blood Pressure 152/60 Physical Exam GENERAL: resting in bed, in NAD. improved mood HEENT: NCAT, dry MM NECK: Trachea midline, full range of motion, supple. LUNGS: CTA b/l. no accessory m usage HEART: S1, S2 RRR. no r/m/g BACK: limited ROM ABDOMEN: soft, nontender , nondistended EXTREMITIES: no pedal edema. pulses intact NEUROLOGICAL: scholastic aptitude test grader 2-12 grossly intact. however able to move UE, LE Laboratory Tests 09/24/19 09/24/19 05:25 05:25 WBC 10.3 H Hgb 8.7 L Hct 26.2 L Plt Count 425 Sodium 143 Potassium 3.4 L Chloride 113 H Carbon Dioxide 18 L Anion Gap 12 BUN 29.9 H Creatinine 3.3 H Est GFR (CKD-EPI)AfAm 15.61 Est GFR (CKD-EPI)NonAf 13.47 Random Glucose 78 Calcium 8.4 L Phosphorus 4.3 Microbiology 09/16/19 16:13 Back Gram Stain - Final 09/16/19 16:13 Back Wound Culture - Final NO AEROBIC OR ANAEROBIC GROWTH OBTAINED. 09/16/19 01:30 Stool Gram Stain - Final 09/16/19 01:30 Stool Clostridioides difficile Antigen - Final 09/16/19 01:30 Stool Clostridioides difficile Toxin Assay - Final 09/14/19 10:27 Back Gram Stain - Final 09/14/19 10:27 Back Wound Culture - Final NO AEROBIC OR ANAEROBIC GROWTH OBTAINED. 09/14/19 10:26 Back Gram Stain - Final 09/14/19 10:26 Back Wound Culture - Final NO AEROBIC OR ANAEROBIC GROWTH OBTAINED. 09/14/19 10:24 Back Gram Stain - Final 09/14/19 10:24 Back Wound Culture - Final NO AEROBIC OR ANAEROBIC GROWTH OBTAINED. 09/12/19 15:28 Blood - Peripheral Venous Blood Culture - Final NO GROWTH AFTER 5 DAYS INCUBATION 09/12/19 15:20 Blood - Peripheral Venous Blood Culture - Final NO GROWTH AFTER 5 DAYS INCUBATION 09/09/19 16:30 Back Gram Stain - Final 09/09/19 16:30 Back Wound Culture - Final Escherichia Coli Bacteroides Fragilis Campylobacter Gracilis 09/09/19 14:53 Urine - Urine - Catheterized Urine Culture - Final NO GROWTH OBTAINED Laboratory Tests 09/21/19 09/21/19 09/22/19 06:15 06:15 12:30 IgG 773 IgA 188 IgM 28 EDUIN M-Clarence Pending Serum EDUIN Interpret Pending IEP IgG Pending IEP IgA Pending IEP IgM Pending Free [place] LC, Quant Pending Free Lambda LC, Quant Pending Free [place]/Lambda Ratio Pending Imaging 09/09/19: CXR: s/p anterior cervical fusion. ortho hardware in the lower thoracic, upper lumbosacral spine. cardiomegaly. uncoiled thoracic aorta. no evidence of pneumothorax or large pl effusion. no evidence of pulm edema. linear opacities are noted in the right mid lung zone atelectatic changes. 09/15/19: Renal sono: nonobstructing R renal calculus 1.1cm echogenic focus lower pole R kidney 09/15/19: Abd sono: fatty infiltration of enlarged liver, cholelithiasis, nonobstructing R renal calculus, R renal cyst Assessment/Plan 68 y/o F with no significant PMH who presents s/p L1-S1 posterior decompression & T11-S1 instrumented fusion (08/26/2019) now p/w wound infection. #s/p L1-S1 posterior decompression & T11-S1 instrumented fusion (08/26/2019) -s/p multiple I&D, most recent repeat washout, debridement thoracolumbar spine -d/c zosyn. started on rocephin (09/18). will likely need PICC 5 additional wks abx on d/c -also on vanco, c. diff dosing. -1 U PRBCs requested by sx. (09/24) -recent cx (-) -incentive spirometer -pain control: danilo PRN -ID: Dr. Tesfaye -Sx: Dr. Villa #M spike -differentials - MGUS, MM, but likely 2/2 infection, inflammation -repeat when clinically stable -f/u light chains, protein w/u - in process -heme/onc: Dr. Finn #PANCHO vs. PANCHO on CKD - improving -c/w IVF; 10/17 NS 83 cc/hr -Fena 1.4% intrinsic could be ATN -c/t monitor -c/w sodium bicarb -nephro: Dr. Loo #R/o c. diff -with c. diff ag (+) however toxin (-) -started on vanc 125mg PO q6h prophylactically -f/u stool ova and parasite -ID: Dr. Tesfaye #F/E/N IV 10/17 NS 83 cc/hr continue to follow lytes regular diet #PPX mechanical only- SCD/TEDs GI: protonix #Dispo ICU monitoring case d/w [facility] physician, JAMIE with transfer on Monday, PICC for will need 5 weeks ceftriaxone will need to call [facility] physician again on to receive 1U PRBCs today (09/24) per sx <Soha Reilly - Last Filed: 09/24/19 17:48> - Note Progress Note: Seen and examined; agree with above aside from as supplemented below by myself. Personally verified all historical information and yang PE findings. Independently reviewed all labs and diagnostics. I discussed the case at length with the resident and consulting services. All questions answered. Seen in ICU Seen and examined; no new complaints. Continues to have diarrhea. Pain is controlled. GENERAL: The patient is awake, alert, and fully oriented, in no acute distress. HEAD: Normal with no signs of trauma. EYES: PERRL, extraocular movements intact, sclera anicteric, conjunctiva clear. No ptosis. ENT: Ears normal, nares patent, oropharynx clear without exudates, moist mucous membranes. NECK: Trachea midline, full range of motion, supple. LUNGS: Breath sounds equal, clear to auscultation bilaterally, no wheezes, no crackles, no accessory muscle use. HEART: Regular rate and rhythm, S1, S2 without murmur, rub or gallop. ABDOMEN: Soft, nontender, nondistended, normoactive bowel sounds EXTREMITIES: 2+ pulses, warm, well-perfused, no edema. Moves all 4 with normal strength. NEUROLOGICAL: Cranial nerves II through XII grossly intact. Normal speech, gait not observed. PSYCH: Normal mood, normal affect. SKIN: Warm, dry, normal turgor, no rashes or lesions noted. Post op wound dressings are c/d/i and wound vac is attached. Problems include: -Postoperative wound infection (apparently going for fifth debridement; will discuss with surgical services) -Cdif (no s/s worsening sepsis, completing per ID) -PANCHO on CKD (Nephrology consulted; renal function continues to improve) -Acute blood loss anemia (sgy requests h/h be kept >10/30) -Acute on chronic back pain -Morbid obesity -hypoalbuminemia -elevated alk phos; normalized but with mild dilation of CBD on US. Non-urgent MRCP can be done as OP provided her CMP and symptoms remain stable. Not havign abdominal pain. Does have gallstones without evidence of -itis -acute on chronic back pain s/p operative fixation -Non-obstructing R-renal calculus -M spike (continue to followup recs per Dr. Finn) Full Code Continue SCDs GI px if continued NPO Dispo pending final abx course and postoperative healing. Spoke with patient and family at length; they have the perception that when she was discharged the last time that contributed to the infection starting. I explained to them at length that this likely was not the causation and they did verbalize understanding. Overall they remain inpatient for ongoing treatemtn for the acute infetious diarrhea and posoperative wound infection. Continue abx per ID and will need PICC prior to DC for further care. Will need placement at rehab. She has been working with PT and has progressed some over the weekend. Her pain is controlled and sj is monitoring her progress. <Christopher Goodwin - Last Filed: 09/27/19 13:06>
--- NOTE | 2019-09-24 14:04 | PN ---
Progress Note, Physician History of Present Illness: improving working with physio back pain - Current Medication List Current Medications: Active Medications Amlodipine Besylate (Norvasc -) 10 mg PO DAILY [facility] Last Admin: 09/24/19 09:00 Dose: 10 mg Benzocaine/Menthol (Cepacol Lozenge -) 1 each MM PRN PRN PRN Reason: SORE THROAT Chlorhexidine Gluconate (Hibiclens For Decolonization -) 1 applic TP HS [facility] Last Admin: 09/23/19 22:07 Dose: 1 applic Ceftriaxone Sodium 1 gm/ (Dextrose) 50 mls @ 100 mls/hr IVPB DAILY [facility]; Protocol Last Admin: 09/24/19 09:00 Dose: 100 mls/hr Sodium Chloride (1/2 Normal Saline) 1,000 mls @ 83 mls/hr IV ASDIR [facility] Last Admin: 09/23/19 14:06 Dose: 83 mls/hr Lactobacillus Acidophilus (Bacid -) 1 tab PO TID [facility] Last Admin: 09/24/19 13:53 Dose: Not Given Ondansetron HCl (Zofran Injection) 4 mg IVPUSH Q6H PRN PRN Reason: NAUSEA AND/OR VOMITING Oxycodone HCl (Roxicodone -) 10 mg PO Q4H PRN PRN Reason: PAIN LEVEL 6-10 Last Admin: 09/24/19 08:52 Dose: 10 mg Pantoprazole Sodium (Protonix Iv) 40 mg IVPUSH DAILY [facility] Last Admin: 09/24/19 09:01 Dose: 40 mg Sodium Bicarbonate (Sodium Bicarbonate -) 325 mg PO BID [facility] Last Admin: 09/24/19 09:00 Dose: 325 mg Vancomycin HCl (Vancomycin Oral Solution) 125 mg PO Q6HPO [facility] Last Admin: 09/24/19 13:15 Dose: Not Given - Objective Vital Signs: Vital Signs Temperature 98.9 F 09/24/19 10:00 Pulse Rate 82 09/24/19 12:00 Respiratory Rate 14 09/24/19 12:00 Blood Pressure 152/60 09/24/19 12:00 O2 Sat by Pulse Oximetry (%) 96 09/24/19 10:24 Constitutional: Yes: Calm, Mild Distress Cardiovascular: Yes: S1, S2 Respiratory: Yes: Regular, CTA Bilaterally Gastrointestinal: Yes: Normal Bowel Sounds, Soft Musculoskeletal: Yes: Back Pain Extremities: Yes: WNL Neurological: Yes: Alert, Oriented Psychiatric: Yes: Alert, Oriented Labs: CBC, BMP 09/24/19 05:25 09/24/19 05:25 INR, PTT INR 1.69 (0.83-1.09) H 09/13/19 05:45 Assessment/Plan Problem List - Problems (1) PANCHO (acute kidney injury) Code(s): N17.9 - ACUTE KIDNEY FAILURE, UNSPECIFIED (2) Wound infection after surgery Code(s): T81.49XA - INFECTION FOLLOWING A PROCEDURE, OTHER SURGICAL SITE, INIT (3) Hx of decompressive lumbar laminectomy Code(s): Z98.890 - OTHER SPECIFIED POSTPROCEDURAL STATES Assessment/Plan Thoraco-lumbar spine infection/abscess s/p I+D POD#4 PANCHO Anemia plan continue abx wound care rest as per the team physio
[2019-09-24] MEDS: SODIUM CHLORIDE 0.45% 1,000 ML IV SCH (14:17)
--- NOTE | 2019-09-24 15:33 | PN ---
Progress Note, Physician History of Present Illness: Pt seen and examined at bedside. She is awake and alert. She denies shortness of breath. - Current Medication List Current Medications: Active Medications Amlodipine Besylate (Norvasc -) 10 mg PO DAILY [facility] Last Admin: 09/24/19 09:00 Dose: 10 mg Benzocaine/Menthol (Cepacol Lozenge -) 1 each MM PRN PRN PRN Reason: SORE THROAT Chlorhexidine Gluconate (Hibiclens For Decolonization -) 1 applic TP HS [facility] Last Admin: 09/23/19 22:07 Dose: 1 applic Ceftriaxone Sodium 1 gm/ (Dextrose) 50 mls @ 100 mls/hr IVPB DAILY [facility]; Protocol Last Admin: 09/24/19 09:00 Dose: 100 mls/hr Sodium Chloride (1/2 Normal Saline) 1,000 mls @ 83 mls/hr IV ASDIR [facility] Last Admin: 09/24/19 14:17 Dose: 83 mls/hr Lactobacillus Acidophilus (Bacid -) 1 tab PO TID [facility] Last Admin: 09/24/19 13:53 Dose: Not Given Ondansetron HCl (Zofran Injection) 4 mg IVPUSH Q6H PRN PRN Reason: NAUSEA AND/OR VOMITING Oxycodone HCl (Roxicodone -) 10 mg PO Q4H PRN PRN Reason: PAIN LEVEL 6-10 Last Admin: 09/24/19 14:16 Dose: 10 mg Pantoprazole Sodium (Protonix Iv) 40 mg IVPUSH DAILY [facility] Last Admin: 09/24/19 09:01 Dose: 40 mg Sodium Bicarbonate (Sodium Bicarbonate -) 325 mg PO BID [facility] Last Admin: 09/24/19 09:00 Dose: 325 mg Vancomycin HCl (Vancomycin Oral Solution) 125 mg PO Q6HPO [facility] Last Admin: 09/24/19 13:15 Dose: Not Given - Objective Vital Signs: Vital Signs Temperature 98.1 F 09/24/19 15:00 Pulse Rate 89 09/24/19 14:00 Respiratory Rate 15 09/24/19 14:00 Blood Pressure 151/56 L 09/24/19 14:00 O2 Sat by Pulse Oximetry (%) 96 09/24/19 10:24 Constitutional: Yes: Calm Eyes: Yes: Conjunctiva Clear HENT: Yes: Atraumatic Neck: Yes: Supple Cardiovascular: Yes: S1, S2 Respiratory: Yes: CTA Bilaterally Gastrointestinal: Yes: Soft Genitourinary: Yes: Baird Present Edema: Yes Edema: LLE: Trace, RLE: Trace Neurological: Yes: Oriented Labs: CBC, BMP 09/24/19 05:25 09/24/19 05:25 INR, PTT INR 1.69 (0.83-1.09) H 09/13/19 05:45 Problem List - Problems (1) PANCHO (acute kidney injury) Code(s): N17.9 - ACUTE KIDNEY FAILURE, UNSPECIFIED (2) Hypokalemia Code(s): E87.6 - HYPOKALEMIA (3) Wound infection after surgery Code(s): T81.49XA - INFECTION FOLLOWING A PROCEDURE, OTHER SURGICAL SITE, INIT (4) Hx of decompressive lumbar laminectomy Code(s): Z98.890 - OTHER SPECIFIED POSTPROCEDURAL STATES Assessment/Plan Current Medications Generic Name Dose Route Start Last Admin Trade Name Freq PRN Reason Stop Dose Admin Amlodipine Besylate 10 mg 09/22/19 10:00 09/24/19 09:00 Norvasc - PO 10 mg DAILY [facility] Administration Benzocaine/Menthol 1 each 09/19/19 00:48 Cepacol Lozenge - MM PRN PRN SORE THROAT Chlorhexidine Gluconate 1 applic 09/19/19 22:00 09/23/19 22:07 Hibiclens For Decolonization - TP 1 applic HS [facility] Administration Ceftriaxone Sodium 1 gm/ 50 mls @ 100 mls/hr 09/19/19 10:00 09/24/19 09:00 Dextrose IVPB 100 mls/hr DAILY [facility] Administration Protocol Sodium Chloride 1,000 mls @ 83 mls/hr 09/23/19 13:35 09/24/19 14:17 1/2 Normal Saline IV 83 mls/hr ASDIR [facility] Administration Lactobacillus Acidophilus 1 tab 09/19/19 06:00 09/24/19 13:53 Bacid - PO Not Given TID [facility] Ondansetron HCl 4 mg 09/19/19 00:48 Zofran Injection IVPUSH Q6H PRN NAUSEA AND/OR VOMITING Oxycodone HCl 10 mg 09/23/19 08:48 09/24/19 14:16 Roxicodone - PO 10 mg Q4H PRN Administration PAIN LEVEL 6-10 Pantoprazole Sodium 40 mg 09/19/19 10:00 09/24/19 09:01 Protonix Iv IVPUSH 40 mg DAILY [facility] Administration Sodium Bicarbonate 325 mg 09/23/19 13:45 09/24/19 09:00 Sodium Bicarbonate - PO 325 mg BID [facility] Administration Vancomycin HCl 125 mg 09/19/19 06:00 09/24/19 13:15 Vancomycin Oral Solution PO Not Given Q6HPO [facility] 1. PANCHO 2. Spine wound infection 3. Hyponatremia in setting of decreased renal function now improved 4. hypokalemia 5. nephrolithiasis 6. m-spike Plan - decrease fluids - renal function improving - replace potassium - will asses dose of po bicarb again tomorrow - avoid nephrotixins
[2019-09-24] MEDS ORDERED: SODIUM CHLORIDE 0.45% 1,000 ML IV SCH (15:34)
--- NOTE | 2019-09-24 15:59 | PN ---
Progress Note (short form) - Note Progress Note: In ICU Looking well, best we have seen her. Walked in the hallway. Apyrexial. VSS. Diarrhea persists. Drsg dry and clean and sealed. Plan: For PICC line: Will arrange antibiotics on DC. Continue pain management. PT FWBAT. Diet: Regular DC planning to Rehab Monday.
[2019-09-24 18:07] LABS: FREE KAPPA,SERUM 59.8 mg/L (3.3-19.4)
[2019-09-24] MEDS ORDERED: hydrALAZINE HCL 20 MG/ML VIAL IVPUSH ONE (19:40)
[2019-09-24] MEDS ORDERED: PT OWN MED DRAWER 7, Y5N ONE (20:25)
[2019-09-24] MEDS: CHLORHEXIDINE GLUCONATE 4% CLEANSER FOR DECOLONIZATION TP SCH (21:05)
[2019-09-25] MEDS: LACTOBACILLUS ACIDOPHILUS 1 TABLET PO SCH ×3 (06:11→21:34)
[2019-09-25] MEDS: VANCOMYCIN 250 MG/5 ML ORAL SOLUTION PO SCH ×4 (06:12→17:28)
[2019-09-25] MEDS: oxyCODONE HCL 5 MG TABLET PO PRN ×4 (06:35→21:10)
--- NOTE | 2019-09-25 07:42 | PN ---
Physical Exam: SUBJECTIVE: Patient seen and examined by the bedside. Reports improvement in her back pain. OBJECTIVE: Vital Signs Period Temp Pulse Resp BP Sys/No Pulse Ox Last 24 Hr 97.9 F-98.9 F 77-116 12- 110-186/56-85 96-98 GENERAL: AOx3 HEAD: Normal with no signs of trauma, EOMI, no scleral icterus, no ptosis, moist mucous membranes, trachea midline. LUNGS: Clear B/L, clear to auscultation, no wheezes, no crackles, no accessory muscle use. HEART: RRR, S1, S2 without murmur, rub or gallop. ABDOMEN: Soft, nontender, nondistended, normoactive bowel sounds, no guarding. EXTREMITIES: 2+ pulses, warm, well-perfused, no edema, SCDs in place. NEUROLOGICAL: Normal speech, gait not observed. SKIN: Warm, dry, no rashes noted Laboratory Results - last 24 hr 09/21/19 09/21/19 09/22/19 06:15 06:15 12:30 Neutrophils % (Manual) Band Neutrophils % Lymphocytes % (Manual) Monocytes % (Manual) Eosinophils % (Manual) Basophils % (Manual) Myelocytes % (Man) Promyelocytes % (Man) Blast Cells % (Manual) Nucleated RBC % Metamyelocytes Hypochromia Platelet Estimate Polychromasia Poikilocytosis Anisocytosis Microcytosis Macrocytosis Tear Drop Cells Rouleaux Schistocytes Total Protein (PEP) 4.5 L Albumin (PEP) 1.8 L Globulin 2.7 Albumin/Globulin Ratio 0.7 Beta Globulins 0.7 EDUIN M-Clarence Not observed Serum EDUIN Interpret IEP IgG 802 IEP IgA 183 IEP IgM 31 Free [place] LC, Quant 59.8 H Free Lambda LC, Quant 41.0 H Free [place]/Lambda Ratio 1.46 Blood Type Antibody Screen Crossmatch 09/24/19 09/24/19 05:25 15:20 Neutrophils % (Manual) 75.7 Band Neutrophils % 0.0 Lymphocytes % (Manual) 10.1 Monocytes % (Manual) 6 D Eosinophils % (Manual) 6.1 H Basophils % (Manual) 0.0 Myelocytes % (Man) 0 D Promyelocytes % (Man) 0 Blast Cells % (Manual) 0 Nucleated RBC % 0 Metamyelocytes 1 Hypochromia 1+ Platelet Estimate Normal Polychromasia 1+ Poikilocytosis 2+ Anisocytosis 2+ Microcytosis 2+ Macrocytosis 0 Tear Drop Cells 1+ Rouleaux 1+ Schistocytes 2+ Total Protein (PEP) Albumin (PEP) Globulin Albumin/Globulin Ratio Beta Globulins EDUIN M-Clarence Serum EDUIN Interpret IEP IgG IEP IgA IEP IgM Free [place] LC, Quant Free Lambda LC, Quant Free [place]/Lambda Ratio Blood Type A POSITIVE Antibody Screen Negative Crossmatch See Detail Active Medications Generic Name Dose Route Start Last Admin Trade Name Freq PRN Reason Stop Dose Admin Amlodipine Besylate 10 mg 09/22/19 10:00 09/24/19 09:00 Norvasc - PO 10 mg DAILY [facility] Administration Benzocaine/Menthol 1 each 09/19/19 00:48 Cepacol Lozenge - MM PRN PRN SORE THROAT Chlorhexidine Gluconate 1 applic 09/19/19 22:00 09/24/19 21:05 Hibiclens For Decolonization - TP 1 applic HS [facility] Administration Ceftriaxone Sodium 1 gm/ 50 mls @ 100 mls/hr 09/19/19 10:00 09/24/19 09:00 Dextrose IVPB 100 mls/hr DAILY [facility] Administration Protocol Sodium Chloride 1,000 mls @ 75 mls/hr 09/24/19 15:34 09/24/19 16:01 1/2 Normal Saline IV 75 mls/hr ASDIR [facility] Administration Lactobacillus Acidophilus 1 tab 09/19/19 06:00 09/25/19 06:11 Bacid - PO 1 tab TID [facility] Administration Ondansetron HCl 4 mg 09/19/19 00:48 Zofran Injection IVPUSH Q6H PRN NAUSEA AND/OR VOMITING Oxycodone HCl 10 mg 09/23/19 08:48 09/25/19 06:35 Roxicodone - PO 10 mg Q4H PRN Administration PAIN LEVEL 6-10 Pantoprazole Sodium 40 mg 09/19/19 10:00 09/24/19 09:01 Protonix Iv IVPUSH 40 mg DAILY [facility] Administration Sodium Bicarbonate 325 mg 09/23/19 13:45 09/24/19 21:05 Sodium Bicarbonate - PO 325 mg BID [facility] Administration Vancomycin HCl 125 mg 09/19/19 06:00 09/25/19 06:12 Vancomycin Oral Solution PO 125 mg Q6HPO [facility] Administration ASSESSMENT/PLAN: 68F with no significant PMH, history of multiple spinal surgeries: 08/26/19: L1-S1 posterior decompression & T11-S1 instrumented fusion 09/09/19: I&D posterior thoracolumbar spine 09/11/19: I&D with wound vac application 09/14/19: I&D with debridement thoracolumbar spine, exchanged wound vac 09/16/19: Repeat I&D 09/18/19: I&D with complex wound closure (POD#6) #Neuro - POD#7 after washout and closure - Analgesia: [employer], patient refuses valium, discontinued - Physical Therapy, walked yesterday - Started Lexapro as patient has been tearful and depressed on exam - patient refuses, discontinued #Cardio - Hypertensive, continue on Norvasc 5mg daily #Pulm - Maintain O2 saturation >90%, incentive spirometry encouraged #GI - C Diff positive, Vanco 125mg PO Q6H started 09/16 - Rectal tube in place since 09/13 #ID - ID recs: Continue Ceftriaxone 5 more weeks (total 6 weeks), PICC line - C Diff positive, Vanco 125mg PO Q6H, 1 more days for total 10 days (started ) - Ova and Parasites negative, F/u second O&P study - Wound cx 09/09: Campylobacter Gracilis, E coli, Bacteroides Fragilis #Renal - Cr downtrending, daily trend 1.1 -> 2.6 -> 3.5 -> 3.7 -> 4.0 -> 4.4 -> 4.5 - > 4.5 -> 4.4 -> 4.2 -> 4.0 -> 3.7 -> 3.3 -> ??? - Differential for worsening renal function: PANCHO/Hypoperfusion due to infection/ abcess vs. AIN from abx vs. hemodynamic injury hypoperfusion - Renal recs: Continue Bicarb PO - Baird in place #Heme - 1 unit PRBC ordered yesterday as per Dr. Villa, Hg 8.7 -> 10.6 - Heme/Onc recs for M-spike: likely 2/2 infection/surgery/inflammation, DDs: MGUS/smoldering MM, outpatient F/U - Urine Maribel/[place] ratio elevated 99.1./11.4 #Prophylaxis - VLADISLAV, SCD - Protonix 40mg IV #FEN - / N/S @75 - Regular diet #Disposition - Potential D/C to Rehab on Monday after PICC placement for 5 more weeks of Ceftriaxone as per Dr. Villa Visit type - Emergency Visit Emergency Visit: No - New Patient This patient is new to me today: No - Critical Care Critical Care patient: No Total Critical Care Time (in minutes): 39 Critical Care Statement: The care of this patient involved high complexity decision making to prevent further life threatening deterioration of the patient 's condition and/or to evaluate & treat vital organ system(s) failure or risk of failure. ATTENDING PHYSICIAN STATEMENT I saw and evaluated the patient. I reviewed the resident's note and discussed the case with the resident. I agree with the resident's findings and plan as documented. SUBJECTIVE: OBJECTIVE: ASSESSMENT AND PLAN:
[2019-09-25 07:47] LABS: BASO % 1.4 % (0-2.0); EOS % 4.5 % (0-4.5); HEMATOCRIT 31.3 % (32.4-45.2); HEMOGLOBIN 10.6 GM/dL (10.7-15.3); LYMPH % 14.2 % (8-40); MCH 28.2 pg (25.7-33.7); MEAN CELL VOLUME 82.8 fl (80-96); MEAN PLT VOLUME 6.3 fl (7.5-11.1); NEUT % 69.9 % (42.8-82.8); PLATELET COUNT 403 K/MM3 (134-434); RBC 3.78 M/mm3 (3.60-5.2); RDW 16.5 % (11.6-15.6); WHITE BLOOD COUNT 10.1 K/mm3 (4.0-10.0)
[2019-09-25 08:40] LABS: BILIRUBIN,TOTAL 0.3 mg/dL (0.2-1); BLOOD UREA NITROGEN 26.6 mg/dL (7-18); CALCIUM 8.6 mg/dL (8.5-10.1); CREATININE 3.1 mg/dL (0.55-1.3); POTASSIUM 3.4 mmol/L (3.5-5.1); TOT PROT 5.1 g/dl (6.4-8.2)
[2019-09-25] MEDS ORDERED: POTASSIUM CHLORIDE TABS 20 MEQ TABLET.ER (FP) PO ONE ×2 (08:54→09:19)
[2019-09-25 09:19] LABS: ANISOCYTOSIS 1+; MACROCYTOSIS 0; PLATELET ESTIMATE NORMAL
[2019-09-25] MEDS ORDERED: cefTRIAXone SODIUM 1 GM VIAL ONE (09:26)
[2019-09-25] MEDS ORDERED: DEXTROSE 5%-WATER - 50 ML IVPB ONE (09:26)
[2019-09-25] MEDS: PANTOPRAZOLE SODIUM 40 MG VIAL IVPUSH SCH (09:37)
[2019-09-25] MEDS: SODIUM BICARBONATE 650 MG TABLET PO SCH ×2 (09:38→21:34)
[2019-09-25] MEDS: CEFTRIAXONE 1 GM in DEXTROSE 5%-WATER - 50 ML IVPB SCH (09:38)
[2019-09-25] MEDS: amLODIPine BESYLATE 10 MG TABLET (FP) PO SCH (09:40)
--- NOTE | 2019-09-25 11:48 | PN ---
Progress Note (short form) - Note Progress Note: Hospitalist Medicine Refused PT this AM. Case d/w Mil physician (# in chart) yesterday - OK for transfer on Monday, will need PICC on . To leave on 5 wks ceftriaxone after d/c Vitals 09/25/19 10:00 Temperature 98.1 F Pulse Rate 84 Respiratory 14 Rate Blood Pressure 168/67 Physical Exam GENERAL: resting in bed, in NAD. HEENT: NCAT, dry MM NECK: Trachea midline, full range of motion, supple. LUNGS: CTA b/l. no accessory m usage HEART: S1, S2 RRR. no r/m/g BACK: limited ROM ABDOMEN: soft, nontender , nondistended EXTREMITIES: no pedal edema. pulses intact NEUROLOGICAL: keno writer 2-12 grossly intact. however able to move UE, LE Laboratory Tests 09/22/19 09/22/19 09/25/19 12:30 14:00 05:50 WBC 10.1 H Hgb 10.6 L Hct 31.3 L D Plt Count 403 ESR Sodium Potassium Chloride Carbon Dioxide BUN Creatinine Random Glucose Calcium AST ALT C-Reactive Protein Total Protein Albumin U Free Kouts Light Ch 99.10 H U Free Lambda Light Ch 11.40 H U Free Kouts/Lambda 24 8.69 IEP IgG 802 IEP IgA 183 IEP IgM 31 09/25/19 09/25/19 09/25/19 05:50 05:50 11:35 WBC Hgb Hct Plt Count ESR Pending Sodium 142 Potassium 3.4 L Chloride 113 H Carbon Dioxide 18 L BUN 26.6 H Creatinine 3.1 H Random Glucose 82 Calcium 8.6 AST 10 L ALT 11 L C-Reactive Protein 2.2 H Total Protein 5.1 L Albumin 2.0 L U Free Kouts Light Ch U Free Lambda Light Ch U Free Kouts/Lambda 24 IEP IgG IEP IgA IEP IgM Microbiology 09/16/19 16:13 Back Gram Stain - Final 09/16/19 16:13 Back Wound Culture - Final NO AEROBIC OR ANAEROBIC GROWTH OBTAINED. 09/16/19 01:30 Stool Gram Stain - Final 09/16/19 01:30 Stool Clostridioides difficile Antigen - Final 09/16/19 01:30 Stool Clostridioides difficile Toxin Assay - Final 09/14/19 10:27 Back Gram Stain - Final 09/14/19 10:27 Back Wound Culture - Final NO AEROBIC OR ANAEROBIC GROWTH OBTAINED. 09/14/19 10:26 Back Gram Stain - Final 09/14/19 10:26 Back Wound Culture - Final NO AEROBIC OR ANAEROBIC GROWTH OBTAINED. 09/14/19 10:24 Back Gram Stain - Final 09/14/19 10:24 Back Wound Culture - Final NO AEROBIC OR ANAEROBIC GROWTH OBTAINED. 09/12/19 15:28 Blood - Peripheral Venous Blood Culture - Final NO GROWTH AFTER 5 DAYS INCUBATION 09/12/19 15:20 Blood - Peripheral Venous Blood Culture - Final NO GROWTH AFTER 5 DAYS INCUBATION 09/09/19 16:30 Back Gram Stain - Final 09/09/19 16:30 Back Wound Culture - Final Escherichia Coli Bacteroides Fragilis Campylobacter Gracilis 09/09/19 14:53 Urine - Urine - Catheterized Urine Culture - Final NO GROWTH OBTAINED Imaging 09/09/19: CXR: s/p anterior cervical fusion. ortho hardware in the lower thoracic, upper lumbosacral spine. cardiomegaly. uncoiled thoracic aorta. no evidence of pneumothorax or large pl effusion. no evidence of pulm edema. linear opacities are noted in the right mid lung zone atelectatic changes. 09/15/19: Renal sono: nonobstructing R renal calculus 1.1cm echogenic focus lower pole R kidney 09/15/19: Abd sono: fatty infiltration of enlarged liver, cholelithiasis, nonobstructing R renal calculus, R renal cyst Assessment/Plan 68 y/o F with no significant PMH who presents s/p L1-S1 posterior decompression & T11-S1 instrumented fusion (08/26/2019) now p/w wound infection. #s/p L1-S1 posterior decompression & T11-S1 instrumented fusion (08/26/2019) -s/p multiple I&D, most recent repeat washout, debridement thoracolumbar spine -d/c zosyn. started on rocephin (09/18). will need PICC 5 additional wks abx on d /c -also on vanco, c. diff dosing. -recent cx (-) -incentive spirometer -pain control: danilo PRN -ID: Dr. Tesfaye -Sx: Dr. Villa #M spike -differentials - MGUS, MM, but likely 2/2 infection, inflammation -repeat when clinically stable -elevated K,L. protein w/u - in process -heme/onc: Dr. Finn #PANCHO vs. PANCHO on CKD - improving -c/w IVF; 1/2 NS 60 cc/hr -Fena 1.4% intrinsic could be ATN -c/t monitor -c/w sodium bicarb -nephro: Dr. Loo #R/o c. diff -with c. diff ag (+) however toxin (-) -started on vanc 125mg PO q6h prophylactically -f/u stool ova and parasite -ID: Dr. Tesfaye #F/E/N IV 1/ NS 60 cc/hr continue to follow lytes regular diet #PPX mechanical only- SCD/TEDs GI: protonix #Dispo ICU monitoring case d/w Mil physician, OK with transfer on Monday, PICC for will need 5 weeks ceftriaxone will need to call [facility] reno again on <Soha Reilly - Last Filed: 09/25/19 17:13> - Note Progress Note: Seen and examined; agree with above aside from as supplemented below by myself. Personally verified all historical information and yang PE findings. Independently reviewed all labs and diagnostics. I discussed the case at length with the resident and consulting services. All questions answered. Seen in ICU Seen and examined; no new complaints. Diarrhea improved and feeling well otherwise. No new complaints aside from chronic pain; she is making ATC use of her opioids and continues to complain of discomfort with moving. I was informed by the resident that she did not complete PT this morning; confirmed with patient this was initially the case due to the soreness with transfer from her bed with the attempt. She did, however, complete a session later in the day. She is ambulatory and without any indication of new or worsening myelopathy. Her wound is healing well with some associated tenderness. 10 sys ROS done and negative aside from HPI GENERAL: The patient is awake, alert, and fully oriented, in no acute distress. HEAD: Normal with no signs of trauma. EYES: PERRL, extraocular movements intact, sclera anicteric, conjunctiva clear. No ptosis. ENT: Ears normal, nares patent, oropharynx clear without exudates, moist mucous membranes. NECK: Trachea midline, full range of motion, supple. LUNGS: Breath sounds equal, clear to auscultation bilaterally, no wheezes, no crackles, no accessory muscle use. HEART: Regular rate and rhythm, S1, S2 without murmur, rub or gallop. ABDOMEN: Soft, nontender, nondistended, normoactive bowel sounds EXTREMITIES: 2+ pulses, warm, well-perfused, no edema. Moves all 4 with normal strength. NEUROLOGICAL: Cranial nerves II through XII grossly intact. Normal speech, gait not observed. PSYCH: Normal mood, normal affect. SKIN: Warm, dry, normal turgor, no rashes or lesions noted. Post op wound dressings are c/d/i with some tenderness around the area but no signs of cellulitis, fluctuance, or apparent abscess or drainage. A/P: Patient continues to improve in terms of their postoperative wound infection and will be transferred to [facility] on Monday. She was counseled extensively regarding the ongoing importance of PT. Family was not present to update today. Planning for PICC prior to DC. 4 weeks IV Ceftriaxone per ID, completed PO Vancomycin. Renal function improved and is not oliguric and will require contiinued monitoring of BMP and followup with nephrology services. Problems include: -Postoperative wound infection = -Cdif Ag+ -PANCHO on CKD (Nephrology consulted; renal function continues to improve) -Anemia, stable -Acute on chronic back pain -Morbid obesity (BMI 38.5) -hypoalbuminemia -elevated alk phos; normalized but with mild dilation of CBD on US. Non-urgent MRCP can be done as OP provided her CMP and symptoms remain stable. Not having abdominal pain. Does have gallstones without evidence of -itis -acute on chronic back pain s/p operative fixation -Non-obstructing R-renal calculus -M spike (continue to followup recs per Dr. Finn; needs OP followup. Per onco is likely secondary to inflammation/infection. Monitor CMP as OP and FU with onco) Full Code <Christopher Goodwin - Last Filed: 09/28/19 06:14>
--- NOTE | 2019-09-25 12:06 | PN ---
Teaching Attending Note Name of Resident: Winston Knott ATTENDING PHYSICIAN STATEMENT I saw and evaluated the patient. I reviewed the resident's note and discussed the case with the resident. I agree with the resident's findings and plan as documented. SUBJECTIVE: Pt seen and examined in the ICU. Pain controlled. No fevers or chills. OBJECTIVE: Vital Signs Period Temp Pulse Resp BP Sys/No Pulse Ox Last 24 Hr 97.9 F-98.6 F 80-116 - 110-186/56-85 97-98 Intake & Output 09/22/19 09/23/19 09/24/19 09/25/19 23:59 23:59 23:59 23:59 Intake Total 2500 2700 2245 1268 Output Total 2400 1440 3240 900 Balance 100 1260 -995 368 Gen: NAD at rest Heart: RRR Lung: decreased breath sounds at the bases Abd: soft, nontender Ext: no edema CBC, BMP 09/25/19 05:50 09/25/19 05:50 Active Medications Amlodipine Besylate (Norvasc -) 10 mg PO DAILY [facility] Last Admin: 09/25/19 09:40 Dose: 10 mg Benzocaine/Menthol (Cepacol Lozenge -) 1 each MM PRN PRN PRN Reason: SORE THROAT Chlorhexidine Gluconate (Hibiclens For Decolonization -) 1 applic TP HS [facility] Last Admin: 09/24/19 21:05 Dose: 1 applic Ceftriaxone Sodium 1 gm/ (Dextrose) 50 mls @ 100 mls/hr IVPB DAILY [facility]; Protocol Last Admin: 09/25/19 09:38 Dose: 100 mls/hr Sodium Chloride (1/2 Normal Saline) 1,000 mls @ 75 mls/hr IV ASDIR [facility] Last Admin: 09/24/19 16:01 Dose: 75 mls/hr Lactobacillus Acidophilus (Bacid -) 1 tab PO TID [facility] Last Admin: 09/25/19 06:11 Dose: 1 tab Ondansetron HCl (Zofran Injection) 4 mg IVPUSH Q6H PRN PRN Reason: NAUSEA AND/OR VOMITING Oxycodone HCl (Roxicodone -) 10 mg PO Q4H PRN PRN Reason: PAIN LEVEL 6-10 Last Admin: 09/25/19 06:35 Dose: 10 mg Pantoprazole Sodium (Protonix Iv) 40 mg IVPUSH DAILY [facility] Last Admin: 09/25/19 09:37 Dose: 40 mg Sodium Bicarbonate (Sodium Bicarbonate -) 325 mg PO BID [facility] Last Admin: 09/25/19 09:38 Dose: 325 mg Vancomycin HCl (Vancomycin Oral Solution) 125 mg PO Q6HPO [facility] Last Admin: 09/25/19 06:12 Dose: 125 mg ASSESSMENT AND PLAN: Thoracolumbar spine wound infection/Abscess s/p I&D Acute Kidney Injury Anemia +C diff Ag - continue antibiotics per ID - pain control - incentive spirometry - IVF - monitor urine output, creatinine - replete lytes - rehab/PT - DVT prophylaxis - disposition per surgery
--- NOTE | 2019-09-25 13:48 | PN ---
Progress Note, Physician History of Present Illness: stable no new issues working with physio - Current Medication List Current Medications: Active Medications Amlodipine Besylate (Norvasc -) 10 mg PO DAILY [facility] Last Admin: 09/25/19 09:40 Dose: 10 mg Benzocaine/Menthol (Cepacol Lozenge -) 1 each MM PRN PRN PRN Reason: SORE THROAT Chlorhexidine Gluconate (Hibiclens For Decolonization -) 1 applic TP HS [facility] Last Admin: 09/24/19 21:05 Dose: 1 applic Ceftriaxone Sodium 1 gm/ (Dextrose) 50 mls @ 100 mls/hr IVPB DAILY [facility]; Protocol Last Admin: 09/25/19 09:38 Dose: 100 mls/hr Sodium Chloride (1/2 Normal Saline) 1,000 mls @ 75 mls/hr IV ASDIR [facility] Last Admin: 09/24/19 16:01 Dose: 75 mls/hr Lactobacillus Acidophilus (Bacid -) 1 tab PO TID [facility] Last Admin: 09/25/19 13:19 Dose: 1 tab Ondansetron HCl (Zofran Injection) 4 mg IVPUSH Q6H PRN PRN Reason: NAUSEA AND/OR VOMITING Oxycodone HCl (Roxicodone -) 10 mg PO Q4H PRN PRN Reason: PAIN LEVEL 6-10 Last Admin: 09/25/19 13:20 Dose: 10 mg Pantoprazole Sodium (Protonix Iv) 40 mg IVPUSH DAILY [facility] Last Admin: 09/25/19 09:37 Dose: 40 mg Sodium Bicarbonate (Sodium Bicarbonate -) 325 mg PO BID [facility] Last Admin: 09/25/19 09:38 Dose: 325 mg Vancomycin HCl (Vancomycin Oral Solution) 125 mg PO Q6HPO [facility] Last Admin: 09/25/19 13:19 Dose: 125 mg - Objective Vital Signs: Vital Signs Temperature 98.1 F 09/25/19 10:00 Pulse Rate 87 09/25/19 12:00 Respiratory Rate 20 09/25/19 12:00 Blood Pressure 158/60 09/25/19 12:00 O2 Sat by Pulse Oximetry (%) 97 09/25/19 09:04 Constitutional: Yes: No Distress, Calm Cardiovascular: Yes: Regular Rate and Rhythm Respiratory: Yes: Regular, CTA Bilaterally Gastrointestinal: Yes: Normal Bowel Sounds, Soft Musculoskeletal: Yes: Back Pain Extremities: Yes: WNL Neurological: Yes: Alert, Oriented Psychiatric: Yes: Alert, Oriented Labs: CBC, BMP 09/25/19 05:50 09/25/19 05:50 INR, PTT INR 1.69 (0.83-1.09) H 09/13/19 05:45 Assessment/Plan Problem List - Problems (1) PANCHO (acute kidney injury) Code(s): N17.9 - ACUTE KIDNEY FAILURE, UNSPECIFIED (2) Wound infection after surgery Code(s): T81.49XA - INFECTION FOLLOWING A PROCEDURE, OTHER SURGICAL SITE, INIT (3) Hx of decompressive lumbar laminectomy Code(s): Z98.890 - OTHER SPECIFIED POSTPROCEDURAL STATES Assessment/Plan Thoraco-lumbar spine infection/abscess s/p I+D POD#4 PANCHO Anemia plan continue abx wound care rest as per the team physio
--- NOTE | 2019-09-25 15:03 | PN ---
Progress Note, Physician History of Present Illness: Pt seen and examined at bedside. She is awake and alert. She denies shortness of breath. - Current Medication List Current Medications: Active Medications Amlodipine Besylate (Norvasc -) 10 mg PO DAILY [facility] Last Admin: 09/25/19 09:40 Dose: 10 mg Benzocaine/Menthol (Cepacol Lozenge -) 1 each MM PRN PRN PRN Reason: SORE THROAT Chlorhexidine Gluconate (Hibiclens For Decolonization -) 1 applic TP HS [facility] Last Admin: 09/24/19 21:05 Dose: 1 applic Ceftriaxone Sodium 1 gm/ (Dextrose) 50 mls @ 100 mls/hr IVPB DAILY [facility]; Protocol Last Admin: 09/25/19 09:38 Dose: 100 mls/hr Sodium Chloride (1/2 Normal Saline) 1,000 mls @ 75 mls/hr IV ASDIR [facility] Last Admin: 09/24/19 16:01 Dose: 75 mls/hr Lactobacillus Acidophilus (Bacid -) 1 tab PO TID [facility] Last Admin: 09/25/19 13:19 Dose: 1 tab Ondansetron HCl (Zofran Injection) 4 mg IVPUSH Q6H PRN PRN Reason: NAUSEA AND/OR VOMITING Oxycodone HCl (Roxicodone -) 10 mg PO Q4H PRN PRN Reason: PAIN LEVEL 6-10 Last Admin: 09/25/19 13:20 Dose: 10 mg Pantoprazole Sodium (Protonix Iv) 40 mg IVPUSH DAILY [facility] Last Admin: 09/25/19 09:37 Dose: 40 mg Sodium Bicarbonate (Sodium Bicarbonate -) 325 mg PO BID [facility] Last Admin: 09/25/19 09:38 Dose: 325 mg Vancomycin HCl (Vancomycin Oral Solution) 125 mg PO Q6HPO [facility] Last Admin: 09/25/19 13:19 Dose: 125 mg - Objective Vital Signs: Vital Signs Temperature 98.2 F 09/25/19 14:00 Pulse Rate 84 09/25/19 14:00 Respiratory Rate 13 09/25/19 14:00 Blood Pressure 166/61 09/25/19 14:00 O2 Sat by Pulse Oximetry (%) 97 09/25/19 09:04 Constitutional: Yes: Calm Eyes: Yes: Conjunctiva Clear HENT: Yes: Atraumatic Cardiovascular: Yes: S1, S2 Respiratory: Yes: CTA Bilaterally Gastrointestinal: Yes: Soft Musculoskeletal: Yes: WNL Edema: LLE: Trace, RLE: Trace Neurological: Yes: Oriented Psychiatric: Yes: Oriented Labs: CBC, BMP 09/25/19 05:50 09/25/19 05:50 INR, PTT INR 1.69 (0.83-1.09) H 09/13/19 05:45 Problem List - Problems (1) PANCHO (acute kidney injury) Code(s): N17.9 - ACUTE KIDNEY FAILURE, UNSPECIFIED (2) Hypokalemia Code(s): E87.6 - HYPOKALEMIA (3) Wound infection after surgery Code(s): T81.49XA - INFECTION FOLLOWING A PROCEDURE, OTHER SURGICAL SITE, INIT (4) Hx of decompressive lumbar laminectomy Code(s): Z98.890 - OTHER SPECIFIED POSTPROCEDURAL STATES Assessment/Plan Current Medications Generic Name Dose Route Start Last Admin Trade Name Freq PRN Reason Stop Dose Admin Amlodipine Besylate 10 mg 09/22/19 10:00 09/25/19 09:40 Norvasc - PO 10 mg DAILY [facility] Administration Benzocaine/Menthol 1 each 09/19/19 00:48 Cepacol Lozenge - MM PRN PRN SORE THROAT Chlorhexidine Gluconate 1 applic 09/19/19 22:00 09/24/19 21:05 Hibiclens For Decolonization - TP 1 applic HS [facility] Administration Ceftriaxone Sodium 1 gm/ 50 mls @ 100 mls/hr 09/19/19 10:00 09/25/19 09:38 Dextrose IVPB 100 mls/hr DAILY [facility] Administration Protocol Sodium Chloride 1,000 mls @ 75 mls/hr 09/24/19 15:34 09/24/19 16:01 1/2 Normal Saline IV 75 mls/hr ASDIR [facility] Administration Lactobacillus Acidophilus 1 tab 09/19/19 06:00 09/25/19 13:19 Bacid - PO 1 tab TID [facility] Administration Ondansetron HCl 4 mg 09/19/19 00:48 Zofran Injection IVPUSH Q6H PRN NAUSEA AND/OR VOMITING Oxycodone HCl 10 mg 09/23/19 08:48 09/25/19 13:20 Roxicodone - PO 10 mg Q4H PRN Administration PAIN LEVEL 6-10 Pantoprazole Sodium 40 mg 09/19/19 10:00 09/25/19 09:37 Protonix Iv IVPUSH 40 mg DAILY [facility] Administration Sodium Bicarbonate 325 mg 09/23/19 13:45 09/25/19 09:38 Sodium Bicarbonate - PO 325 mg BID [facility] Administration Vancomycin HCl 125 mg 09/19/19 06:00 09/25/19 13:19 Vancomycin Oral Solution PO 125 mg Q6HPO [facility] Administration 1. PANCHO 2. Spine wound infection 3. Hyponatremia in setting of decreased renal function now improved 4. hypokalemia 5. nephrolithiasis 6. m-spike Plan - renal function continues to improve - can decrease fluids further - encourage po intake - repeat labs in am - monitor bicarb level - m-spike workup per hematology - avoid nephrotixins
[2019-09-25] MEDS: SODIUM CHLORIDE 0.45% 1,000 ML IV SCH (16:29)
[2019-09-25] MEDS ORDERED: amLODIPine BESYLATE 10 MG TABLET (FP) PO ONE (18:10)
[2019-09-25] MEDS ORDERED: HYDROCHLOROTHIAZIDE 12.5 MG CAPSULE (FP) PO ONE (18:25)
[2019-09-25] MEDS: CHLORHEXIDINE GLUCONATE 4% CLEANSER FOR DECOLONIZATION TP SCH (23:00)
[2019-09-26] MEDS: VANCOMYCIN 250 MG/5 ML ORAL SOLUTION PO SCH (00:50)
[2019-09-26] MEDS: SODIUM CHLORIDE 0.45% 1,000 ML IV SCH (05:29)
[2019-09-26] MEDS: LACTOBACILLUS ACIDOPHILUS 1 TABLET PO SCH ×3 (05:31→21:32)
--- NOTE | 2019-09-26 07:29 | PN ---
Physical Exam: SUBJECTIVE: Patient seen and examined on AM rounds. No overnight events. Complains of continued back pain, worse with PT - tolerance improving. Denies CP/SOB/N/V. OBJECTIVE: Vital Signs Period Temp Pulse Resp BP Sys/No Pulse Ox Last 24 Hr 98.0 F-98.4 F 80-90 12- 150-182/58-74 96-97 GENERAL: AOx3 HEAD: Normal with no signs of trauma, EOMI, no scleral icterus, no ptosis, moist mucous membranes, trachea midline. LUNGS: Clear B/L, clear to auscultation, no wheezes, no crackles, no accessory muscle use. HEART: RRR, S1, S2 without murmur, rub or gallop. ABDOMEN: Soft, nontender, nondistended, normoactive bowel sounds, no guarding. EXTREMITIES: 2+ pulses, warm, well-perfused, no edema, SCDs in place. NEUROLOGICAL: Normal speech, gait not observed. SKIN: Warm, dry, no rashes noted Laboratory Results - last 24 hr 09/25/19 09/25/19 09/25/19 05:50 05:50 05:50 WBC 10.1 H RBC 3.78 Hgb 10.6 L Hct 31.3 L D MCV 82.8 MCH 28.2 MCHC 34.0 RDW 16.5 H Plt Count 403 MPV 6.3 L Absolute Neuts (auto) 7.1 Neutrophils % 69.9 Neutrophils % (Manual) 70.3 Band Neutrophils % 1.0 Lymphocytes % 14.2 Lymphocytes % (Manual) 17.8 D Monocytes % 10.0 Monocytes % (Manual) 5 Eosinophils % 4.5 Eosinophils % (Manual) 4.9 H Basophils % 1.4 Basophils % (Manual) 0.0 Myelocytes % (Man) 1 D Promyelocytes % (Man) 0 Blast Cells % (Manual) 0 Nucleated RBC % 0 Metamyelocytes 0 D Hypochromia 1+ Platelet Estimate Normal Polychromasia 1+ Poikilocytosis 0 Anisocytosis 1+ Microcytosis 1+ Macrocytosis 0 ESR Sodium 142 Potassium 3.4 L Chloride 113 H Carbon Dioxide 18 L Anion Gap 11 BUN 26.6 H Creatinine 3.1 H Est GFR (CKD-EPI)AfAm 16.83 Est GFR (CKD-EPI)NonAf 14.52 Random Glucose 82 Calcium 8.6 Total Bilirubin 0.3 AST 10 L ALT 11 L Alkaline Phosphatase 92 C-Reactive Protein 2.2 H Total Protein 5.1 L Albumin 2.0 L 09/25/19 11:35 WBC RBC Hgb Hct MCV MCH MCHC RDW Plt Count MPV Absolute Neuts (auto) Neutrophils % Neutrophils % (Manual) Band Neutrophils % Lymphocytes % Lymphocytes % (Manual) Monocytes % Monocytes % (Manual) Eosinophils % Eosinophils % (Manual) Basophils % Basophils % (Manual) Myelocytes % (Man) Promyelocytes % (Man) Blast Cells % (Manual) Nucleated RBC % Metamyelocytes Hypochromia Platelet Estimate Polychromasia Poikilocytosis Anisocytosis Microcytosis Macrocytosis ESR 43 H Sodium Potassium Chloride Carbon Dioxide Anion Gap BUN Creatinine Est GFR (CKD-EPI)AfAm Est GFR (CKD-EPI)NonAf Random Glucose Calcium Total Bilirubin AST ALT Alkaline Phosphatase C-Reactive Protein Total Protein Albumin Active Medications Generic Name Dose Route Start Last Admin Trade Name Freq PRN Reason Stop Dose Admin Amlodipine Besylate 10 mg 09/22/19 10:00 09/25/19 09:40 Norvasc - PO 10 mg DAILY [facility] Administration Benzocaine/Menthol 1 each 09/19/19 00:48 Cepacol Lozenge - MM PRN PRN SORE THROAT Chlorhexidine Gluconate 1 applic 09/19/19 22:00 09/25/19 23:00 Hibiclens For Decolonization - TP 1 applic HS [facility] Administration Ceftriaxone Sodium 1 gm/ 50 mls @ 100 mls/hr 09/19/19 10:00 09/25/19 09:38 Dextrose IVPB 100 mls/hr DAILY [facility] Administration Protocol Sodium Chloride 1,000 mls @ 60 mls/hr 09/25/19 15:03 09/26/19 05:29 1/2 Normal Saline IV 60 mls/hr ASDIR [facility] Administration Lactobacillus Acidophilus 1 tab 09/19/19 06:00 09/26/19 05:31 Bacid - PO 1 tab TID [facility] Administration Ondansetron HCl 4 mg 09/19/19 00:48 Zofran Injection IVPUSH Q6H PRN NAUSEA AND/OR VOMITING Oxycodone HCl 10 mg 09/23/19 08:48 09/25/19 21:10 Roxicodone - PO 10 mg Q4H PRN Administration PAIN LEVEL 6-10 Pantoprazole Sodium 40 mg 09/19/19 10:00 09/25/19 09:37 Protonix Iv IVPUSH 40 mg DAILY [facility] Administration Sodium Bicarbonate 325 mg 09/23/19 13:45 09/25/19 21:34 Sodium Bicarbonate - PO 325 mg BID [facility] Administration ASSESSMENT/PLAN: 68F with no significant PMH, history of multiple spinal surgeries: 08/26/19: L1-S1 posterior decompression & T11-S1 instrumented fusion 09/09/19: I&D posterior thoracolumbar spine 09/11/19: I&D with wound vac application 09/14/19: I&D with debridement thoracolumbar spine, exchanged wound vac 09/16/19: Repeat I&D 09/18/19: I&D with complex wound closure (POD#8) #Neuro - POD#8 after washout and closure - Analgesia: [employer], patient refuses valium - discontinued - Physical Therapy, walked yesterday - Started Lexapro as patient has been tearful and depressed on exam - patient refuses - discontinued #Cardio - Hypertensive, continue on Norvasc 5mg daily - Added Labetalol as second agent for continued hypertension #Pulm - Maintain O2 saturation >90%, incentive spirometry encouraged #GI - C Diff positive, Vanco 125mg PO Q6H started 09/16 - Rectal tube in place since 09/13 #ID - ID recs: Continue Ceftriaxone 4 more weeks (total 6 weeks), PICC line - C Diff positive, Vanco 125mg PO Q6H, final dose today for total 10 days ( started 09/16) - Ova and Parasites negative, F/u second O&P study - Wound cx 09/09: Campylobacter Gracilis, E coli, Bacteroides Fragilis #Renal - Cr downtrending, monitor daily - Differential for worsening renal function: PANCHO/Hypoperfusion due to infection/ abcess vs. AIN from abx vs. hemodynamic injury hypoperfusion - Renal recs: Continue Bicarb PO - Baird in place - Monitor I&Os #Heme - S/p 1 unit PRBC ordered as per Dr. Villa, Hg 8.7 -> 10.6 - Heme/Onc recs for M-spike: likely 2/2 infection/surgery/inflammation, DDs: MGUS/smoldering MM, outpatient F/U - Urine [place] ratio elevated 99.1./11.4 #Prophylaxis - VLADISLAV, SCD - Protonix 40mg IV #FEN - / N/S @75 - Regular diet #Disposition - Potential D/C to Rehab on Monday after PICC placement for 4 more weeks of Ceftriaxone as per Dr. Villa Visit type - Emergency Visit Emergency Visit: No - New Patient This patient is new to me today: No - Critical Care Critical Care patient: Yes Total Critical Care Time (in minutes): 36 Critical Care Statement: The care of this patient involved high complexity decision making to prevent further life threatening deterioration of the patient 's condition and/or to evaluate & treat vital organ system(s) failure or risk of failure. ATTENDING PHYSICIAN STATEMENT I saw and evaluated the patient. I reviewed the resident's note and discussed the case with the resident. I agree with the resident's findings and plan as documented. SUBJECTIVE: OBJECTIVE: ASSESSMENT AND PLAN:
[2019-09-26 07:47] LABS: BASO % 1.2 % (0-2.0); EOS % 5.8 % (0-4.5); HEMATOCRIT 30.9 % (32.4-45.2); HEMOGLOBIN 10.5 GM/dL (10.7-15.3); LYMPH % 15.9 % (8-40); MCH 27.6 pg (25.7-33.7); MCHC 33.8 g/dl (32.0-36.0); MEAN CELL VOLUME 81.5 fl (80-96); MEAN PLT VOLUME 6.4 fl (7.5-11.1); NEUT % 68.1 % (42.8-82.8); PLATELET COUNT 395 K/MM3 (134-434); RDW 16.5 % (11.6-15.6); WHITE BLOOD COUNT 8.8 K/mm3 (4.0-10.0)
[2019-09-26] MEDS ORDERED: LABETALOL HCL 5 MG/1 ML (100MG/20 ML VIAL) IVPUSH ONE (07:53)
[2019-09-26 08:09] LABS: BLOOD UREA NITROGEN 23.7 mg/dL (7-18); CALCIUM 8.5 mg/dL (8.5-10.1); CREATININE 2.9 mg/dL (0.55-1.3); MAGNESIUM 1.7 mg/dL (1.8-2.4); PHOSPHOROUS 3.9 mg/dL (2.5-4.9); POTASSIUM 3.4 mmol/L (3.5-5.1)
[2019-09-26] MEDS ORDERED: POTASSIUM CHLORIDE TABS 20 MEQ TABLET.ER (FP) PO ONE (08:52)
[2019-09-26] MEDS ORDERED: DEXTROSE 5%-WATER - 50 ML IVPB ONE (08:54)
[2019-09-26] MEDS ORDERED: cefTRIAXone SODIUM 1 GM VIAL ONE (08:54)
[2019-09-26] MEDS ORDERED: MAGNESIUM OXIDE 400 MG TABLET (FP) PO ONE (09:21)
[2019-09-26 09:35] LABS: ANISOCYTOSIS 1+; PLATELET ESTIMATE NORMAL
[2019-09-26] MEDS: amLODIPine BESYLATE 10 MG TABLET (FP) PO SCH (10:00)
[2019-09-26] MEDS: LABETALOL HCL 100 MG TABLET (FP) PO SCH ×2 (10:00→21:32)
[2019-09-26] MEDS: PANTOPRAZOLE SODIUM 40 MG VIAL IVPUSH SCH (10:00)
[2019-09-26] MEDS: CEFTRIAXONE 1 GM in DEXTROSE 5%-WATER - 50 ML IVPB SCH (10:30)
[2019-09-26] MEDS: SODIUM BICARBONATE 650 MG TABLET PO SCH (10:30)
--- NOTE | 2019-09-26 11:06 | PN ---
Progress Note, Physician History of Present Illness: maria del rosario no new issues sitting in chair - Current Medication List Current Medications: Active Medications Amlodipine Besylate (Norvasc -) 10 mg PO DAILY [facility] Last Admin: 09/25/19 09:40 Dose: 10 mg Benzocaine/Menthol (Cepacol Lozenge -) 1 each MM PRN PRN PRN Reason: SORE THROAT Chlorhexidine Gluconate (Hibiclens For Decolonization -) 1 applic TP HS [facility] Last Admin: 09/25/19 23:00 Dose: 1 applic Ceftriaxone Sodium 1 gm/ (Dextrose) 50 mls @ 100 mls/hr IVPB DAILY [facility]; Protocol Last Admin: 09/25/19 09:38 Dose: 100 mls/hr Sodium Chloride (1/2 Normal Saline) 1,000 mls @ 60 mls/hr IV ASDIR [facility] Last Admin: 09/26/19 05:29 Dose: 60 mls/hr Labetalol HCl (Normodyne -) 100 mg PO BID [facility] Lactobacillus Acidophilus (Bacid -) 1 tab PO TID [facility] Last Admin: 09/26/19 05:31 Dose: 1 tab Ondansetron HCl (Zofran Injection) 4 mg IVPUSH Q6H PRN PRN Reason: NAUSEA AND/OR VOMITING Pantoprazole Sodium (Protonix Iv) 40 mg IVPUSH DAILY [facility] Last Admin: 09/25/19 09:37 Dose: 40 mg Sodium Bicarbonate (Sodium Bicarbonate -) 325 mg PO BID [facility] Last Admin: 09/25/19 21:34 Dose: 325 mg - Objective Vital Signs: Vital Signs Temperature 98.6 F 09/26/19 09:09 Pulse Rate 88 09/26/19 09:09 Respiratory Rate 20 09/26/19 09:09 Blood Pressure 165/69 09/26/19 09:09 O2 Sat by Pulse Oximetry (%) 96 09/26/19 07:30 Constitutional: Yes: No Distress, Calm, Obese Cardiovascular: Yes: S1, S2 Respiratory: Yes: Regular, CTA Bilaterally Gastrointestinal: Yes: Normal Bowel Sounds, Soft Musculoskeletal: Yes: WNL Extremities: Yes: WNL Wound/Incision: Yes: Dressing Dry and Intact Neurological: Yes: Alert, Oriented Psychiatric: Yes: Alert, Oriented Labs: CBC, BMP 09/26/19 05:30 09/26/19 05:30 INR, PTT INR 1.69 (0.83-1.09) H 09/13/19 05:45 Assessment/Plan Problem List - Problems (1) PANCHO (acute kidney injury) Code(s): N17.9 - ACUTE KIDNEY FAILURE, UNSPECIFIED (2) Wound infection after surgery Code(s): T81.49XA - INFECTION FOLLOWING A PROCEDURE, OTHER SURGICAL SITE, INIT (3) Hx of decompressive lumbar laminectomy Code(s): Z98.890 - OTHER SPECIFIED POSTPROCEDURAL STATES Assessment/Plan Thoraco-lumbar spine infection/abscess s/p I+D POD#4 PANCHO C.diff Ag +/ toxin neg Anemia -continue ceftriaxone a total of 4 weeks more wound care rest as per the team
--- NOTE | 2019-09-26 12:00 | PN ---
Teaching Attending Note Name of Resident: Troy Quiroz ATTENDING PHYSICIAN STATEMENT I saw and evaluated the patient. I reviewed the resident's note and discussed the case with the resident. I agree with the resident's findings and plan as documented. SUBJECTIVE: Pt seen and examined in the ICU. No overnight events. No fevers or chills. OBJECTIVE: Vital Signs Period Temp Pulse Resp BP Sys/No Pulse Ox Last 24 Hr 98.0 F-98.6 F 82-90 13-24 152-182/58-74 96-98 Intake & Output 09/23/19 09/24/19 09/25/19 09/26/19 23:59 23:59 23:59 23:59 Intake Total 2700 2245 2413 471 Output Total 1440 3240 2080 1700 Balance 1260 -995 333 -1229 Gen: NAD at rest Heart: RRR Lung: decreased breath sounds at the bases Abd: soft, nontender Ext: no edema CBC, BMP 09/26/19 05:30 09/26/19 05:30 Active Medications Amlodipine Besylate (Norvasc -) 10 mg PO DAILY [facility] Last Admin: 09/26/19 10:00 Dose: 10 mg Benzocaine/Menthol (Cepacol Lozenge -) 1 each MM PRN PRN PRN Reason: SORE THROAT Chlorhexidine Gluconate (Hibiclens For Decolonization -) 1 applic TP HS [facility] Last Admin: 09/25/19 23:00 Dose: 1 applic Ceftriaxone Sodium 1 gm/ (Dextrose) 50 mls @ 100 mls/hr IVPB DAILY [facility]; Protocol Last Admin: 09/26/19 10:30 Dose: 100 mls/hr Sodium Chloride (1/2 Normal Saline) 1,000 mls @ 60 mls/hr IV ASDIR [facility] Last Admin: 09/26/19 05:29 Dose: 60 mls/hr Potassium Chloride (Potassium Chloride 10 Meq Premix Ivpb -) 10 meq in 100 mls @ 100 mls/hr IVPB Q60M [facility] Stop: 09/26/19 14:29 Labetalol HCl (Normodyne -) 100 mg PO BID [facility] Last Admin: 09/26/19 10:00 Dose: 100 mg Lactobacillus Acidophilus (Bacid -) 1 tab PO TID [facility] Last Admin: 09/26/19 05:31 Dose: 1 tab Ondansetron HCl (Zofran Injection) 4 mg IVPUSH Q6H PRN PRN Reason: NAUSEA AND/OR VOMITING Pantoprazole Sodium (Protonix Iv) 40 mg IVPUSH DAILY [facility] Last Admin: 09/26/19 10:00 Dose: 40 mg Sodium Bicarbonate (Sodium Bicarbonate -) 325 mg PO BID [facility] Last Admin: 09/26/19 10:30 Dose: 325 mg ASSESSMENT AND PLAN: Thoracolumbar spine wound infection/Abscess s/p I&D Acute Kidney Injury Anemia +C diff Ag - continue antibiotics per ID - pain control - incentive spirometry - IVF - monitor urine output, creatinine - replete lytes - rehab/PT - DVT prophylaxis - d/c planning
--- NOTE | 2019-09-26 12:34 | PN ---
Progress Note (short form) - Note Progress Note: Hospitalist Medicine No new complaints, napping. Discussed case again w/ [place] physician Dr. Cruz at [phone], accepting patient for transfer tomorrow to [place]. All updates given. Will need 4 more weeks of cefriaxone and PICC. Vitals 09/26/19 11:00 Temperature 98.4 F Pulse Rate 72 Respiratory 17 Rate Blood Pressure 165/69 Physical Exam GENERAL: resting in bed, in NAD. HEENT: NCAT, moist MM NECK: Trachea midline, full range of motion, supple. LUNGS: CTA b/l. no accessory m usage HEART: S1, S2 RRR. no r/m/g BACK: limited ROM ABDOMEN: soft, nontender , nondistended EXTREMITIES: no pedal edema. 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 however able to move UE, LE Laboratory Tests 09/26/19 09/26/19 05:30 05:30 WBC 8.8 Hgb 10.5 L Hct 30.9 L Plt Count 395 Sodium 144 Potassium 3.4 L Chloride 113 H Carbon Dioxide 19 L BUN 23.7 H Creatinine 2.9 H Random Glucose 74 Magnesium 1.7 L Microbiology 09/16/19 16:13 Back Gram Stain - Final 09/16/19 16:13 Back Wound Culture - Final NO AEROBIC OR ANAEROBIC GROWTH OBTAINED. 09/16/19 01:30 Stool Gram Stain - Final 09/16/19 01:30 Stool Clostridioides difficile Antigen - Final 09/16/19 01:30 Stool Clostridioides difficile Toxin Assay - Final 09/14/19 10:27 Back Gram Stain - Final 09/14/19 10:27 Back Wound Culture - Final NO AEROBIC OR ANAEROBIC GROWTH OBTAINED. 09/14/19 10:26 Back Gram Stain - Final 09/14/19 10:26 Back Wound Culture - Final NO AEROBIC OR ANAEROBIC GROWTH OBTAINED. 09/14/19 10:24 Back Gram Stain - Final 09/14/19 10:24 Back Wound Culture - Final NO AEROBIC OR ANAEROBIC GROWTH OBTAINED. 09/12/19 15:28 Blood - Peripheral Venous Blood Culture - Final NO GROWTH AFTER 5 DAYS INCUBATION 09/12/19 15:20 Blood - Peripheral Venous Blood Culture - Final NO GROWTH AFTER 5 DAYS INCUBATION 09/09/19 16:30 Back Gram Stain - Final 09/09/19 16:30 Back Wound Culture - Final Escherichia Coli Bacteroides Fragilis Campylobacter Gracilis 09/09/19 14:53 Urine - Urine - Catheterized Urine Culture - Final NO GROWTH OBTAINED Imaging 09/09/19: CXR: s/p anterior cervical fusion. ortho hardware in the lower thoracic, upper lumbosacral spine. cardiomegaly. uncoiled thoracic aorta. no evidence of pneumothorax or large pl effusion. no evidence of pulm edema. linear opacities are noted in the right mid lung zone atelectatic changes. 09/15/19: Renal sono: nonobstructing R renal calculus 1.1cm echogenic focus lower pole R kidney 09/15/19: Abd sono: fatty infiltration of enlarged liver, cholelithiasis, nonobstructing R renal calculus, R renal cyst Assessment/Plan 68 y/o F with no significant PMH who presents s/p L1-S1 posterior decompression & T11-S1 instrumented fusion (08/26/2019) now p/w wound infection. #s/p L1-S1 posterior decompression & T11-S1 instrumented fusion (08/26/2019) -s/p multiple I&D, most recent repeat washout, debridement thoracolumbar spine -d/c zosyn. started on rocephin (09/18). will need PICC 4 additional wks abx on d /c via PICC -recent cx (-) -incentive spirometer -pain control: danilo PRN per sx -ID: Dr. Tesfaye -Sx: Dr. Villa #M spike -differentials - MGUS, MM, but likely 2/2 infection, inflammation -repeat when clinically stable -elevated K,L. protein w/u - in process -heme/onc: Dr. Finn #PANCHO vs. PANCHO on CKD - improving -c/w IVF; 1/2 NS 60 cc/hr -Fena 1.4% intrinsic could be ATN -c/t monitor -c/w sodium bicarb -nephro: Dr. Loo #R/o c. diff -with c. diff ag (+) however toxin (-) -completed course of vanc 125mg PO q6h prophylactically -ID: Dr. Tesfaye #F/E/N IV 1/2 NS 60 cc/hr continue to follow lytes regular diet #PPX mechanical only- SCD/TEDs GI: protonix #Dispo ICU monitoring case d/w [facility] physician, OK with transfer on Monday, will need PICC will need 4 additional weeks ceftriaxone <Soha Reilly - Last Filed: 09/26/19 18:31> - Note Progress Note: Seen and examined; agree with above aside from as supplemented below by myself. Personally verified all historical information and yang PE findings. Independently reviewed all labs and diagnostics. I discussed the case at length with the resident and consulting services. All questions answered. Seen in ICU Seen and examined; no new complaints. Diarrhea improved and feeling well otherwise. No new complaints aside from chronic pain; she is making ATC use of her opioids and continues to complain of discomfort with moving. I was informed by the resident that she did not complete PT this morning; confirmed with patient this was initially the case due to the soreness with transfer from her bed with the attempt. She did, however, complete a session later in the day. She is ambulatory and without any indication of new or worsening myelopathy. Her wound is healing well with some associated tenderness. No new complaints today 10 sys ROS done and negative aside from HPI GENERAL: The patient is awake, alert, and fully oriented, in no acute distress. HEAD: Normal with no signs of trauma. EYES: PERRL, extraocular movements intact, sclera anicteric, conjunctiva clear. No ptosis. ENT: Ears normal, nares patent, oropharynx clear without exudates, moist mucous membranes. NECK: Trachea midline, full range of motion, supple. LUNGS: Breath sounds equal, clear to auscultation bilaterally, no wheezes, no crackles, no accessory muscle use. HEART: Regular rate and rhythm, S1, S2 without murmur, rub or gallop. ABDOMEN: Soft, nontender, nondistended, normoactive bowel sounds EXTREMITIES: 2+ pulses, warm, well-perfused, no edema. Moves all 4 with normal strength. NEUROLOGICAL: Cranial nerves II through XII grossly intact. Normal speech, gait not observed. PSYCH: Normal mood, normal affect. SKIN: Warm, dry, normal turgor, no rashes or lesions noted. Post op wound dressings are c/d/i with some tenderness around the area but no signs of cellulitis, fluctuance, or apparent abscess or drainage. A/P: Patient continues to improve in terms of their postoperative wound infection and will be transferred to [facility] on Monday. She was counseled extensively regarding the ongoing importance of PT. Family was not present to update today. Planning for PICC prior to DC. 4 weeks IV Ceftriaxone per ID, completed PO Vancomycin. Renal function improved and is not oliguric and will require contiinued monitoring of BMP and followup with nephrology services. Problems include: -Postoperative wound infection -Cdif Ag+ -PANCHO on CKD (Nephrology consulted; renal function continues to improve) -Anemia, stable -Acute on chronic back pain -Morbid obesity (BMI 38.5) -hypoalbuminemia -elevated alk phos; normalized but with mild dilation of CBD on US. Non-urgent MRCP can be done as OP provided her CMP and symptoms remain stable. Not having abdominal pain. Does have gallstones without evidence of -itis -acute on chronic back pain s/p operative fixation -Non-obstructing R-renal calculus -M spike (continue to followup recs per Dr. Finn; needs OP followup. Per onco is likely secondary to inflammation/infection. Monitor CMP as OP and FU with onco) Full Code <Christopher Goodwin - Last Filed: 09/28/19 06:30>
[2019-09-26] MEDS: oxyCODONE HCL 5 MG TABLET PO PRN ×2 (12:44→16:52)
[2019-09-26] MEDS: KCL 10 MEQ IVPB 10 MEQ/100 ML INFUS.BAG IVPB SCH ×3 (12:45→14:50)
[2019-09-26] MEDS ORDERED: SODIUM CHLORIDE 0.45% 1,000 ML IV SCH (13:51)
--- NOTE | 2019-09-26 13:56 | PN ---
Progress Note, Physician History of Present Illness: Pt seen and examined at bedside. She is out of bed to chair. - Current Medication List Current Medications: Active Medications Amlodipine Besylate (Norvasc -) 10 mg PO DAILY [facility] Last Admin: 09/26/19 10:00 Dose: 10 mg Benzocaine/Menthol (Cepacol Lozenge -) 1 each MM PRN PRN PRN Reason: SORE THROAT Chlorhexidine Gluconate (Hibiclens For Decolonization -) 1 applic TP HS [facility] Last Admin: 09/25/19 23:00 Dose: 1 applic Ceftriaxone Sodium 1 gm/ (Dextrose) 50 mls @ 100 mls/hr IVPB DAILY [facility]; Protocol Last Admin: 09/26/19 10:30 Dose: 100 mls/hr Potassium Chloride (Potassium Chloride 10 Meq Premix Ivpb -) 10 meq in 100 mls @ 100 mls/hr IVPB Q60M [facility] Stop: 09/26/19 14:29 Last Admin: 09/26/19 12:45 Dose: 100 mls/hr Sodium Chloride (1/2 Normal Saline) 1,000 mls @ 42 mls/hr IV ASDIR [facility] Labetalol HCl (Normodyne -) 100 mg PO BID [facility] Last Admin: 09/26/19 10:00 Dose: 100 mg Lactobacillus Acidophilus (Bacid -) 1 tab PO TID [facility] Last Admin: 09/26/19 05:31 Dose: 1 tab Ondansetron HCl (Zofran Injection) 4 mg IVPUSH Q6H PRN PRN Reason: NAUSEA AND/OR VOMITING Oxycodone HCl (Roxicodone -) 10 mg PO Q4H PRN PRN Reason: PAIN LEVEL 6-10 Last Admin: 09/26/19 12:44 Dose: 10 mg Pantoprazole Sodium (Protonix Iv) 40 mg IVPUSH DAILY [facility] Last Admin: 09/26/19 10:00 Dose: 40 mg Sodium Bicarbonate (Sodium Bicarbonate -) 325 mg PO BID [facility] Last Admin: 09/26/19 10:30 Dose: 325 mg - Objective Vital Signs: Vital Signs Temperature 98.4 F 09/26/19 11:00 Pulse Rate 91 H 09/26/19 12:46 Respiratory Rate 17 09/26/19 12:46 Blood Pressure 159/59 L 09/26/19 12:46 O2 Sat by Pulse Oximetry (%) 98 12/12/19 09:00 Constitutional: Yes: Calm Eyes: Yes: Conjunctiva Clear HENT: Yes: Atraumatic Cardiovascular: Yes: S1, S2 Respiratory: Yes: CTA Bilaterally Gastrointestinal: Yes: Soft Genitourinary: Yes: Baird Present Musculoskeletal: Yes: WNL Edema: Yes Edema: LLE: Trace, RLE: Trace Neurological: Yes: Oriented Psychiatric: Yes: Oriented Labs: CBC, BMP 09/26/19 05:30 09/26/19 05:30 INR, PTT INR 1.69 (0.83-1.09) H 09/13/19 05:45 Problem List - Problems (1) PANCHO (acute kidney injury) Code(s): N17.9 - ACUTE KIDNEY FAILURE, UNSPECIFIED (2) Hypokalemia Code(s): E87.6 - HYPOKALEMIA (3) Wound infection after surgery Code(s): T81.49XA - INFECTION FOLLOWING A PROCEDURE, OTHER SURGICAL SITE, INIT (4) Hx of decompressive lumbar laminectomy Code(s): Z98.890 - OTHER SPECIFIED POSTPROCEDURAL STATES Assessment/Plan Current Medications Generic Name Dose Route Start Last Admin Trade Name Freq PRN Reason Stop Dose Admin Amlodipine Besylate 10 mg 09/22/19 10:00 09/26/19 10:00 Norvasc - PO 10 mg DAILY [facility] Administration Benzocaine/Menthol 1 each 09/19/19 00:48 Cepacol Lozenge - MM PRN PRN SORE THROAT Chlorhexidine Gluconate 1 applic 09/19/19 22:00 09/25/19 23:00 Hibiclens For Decolonization - TP 1 applic HS [facility] Administration Ceftriaxone Sodium 1 gm/ 50 mls @ 100 mls/hr 09/19/19 10:00 09/26/19 10:30 Dextrose IVPB 100 mls/hr DAILY [facility] Administration Protocol Potassium Chloride 10 meq in 100 mls @ 100 mls/hr 09/26/19 11:30 09/26/19 12: 45 Potassium Chloride 10 Meq Premix Ivpb - IVPB 09/26/19 14:29 100 mls/hr Q60M [facility] Administration Sodium Chloride 1,000 mls @ 42 mls/hr 09/26/19 13:51 1/2 Normal Saline IV ASDIR [facility] Labetalol HCl 100 mg 09/26/19 10:00 09/26/19 10:00 Normodyne - PO 100 mg BID [facility] Administration Lactobacillus Acidophilus 1 tab 09/19/19 06:00 09/26/19 05:31 Bacid - PO 1 tab TID [facility] Administration Ondansetron HCl 4 mg 09/19/19 00:48 Zofran Injection IVPUSH Q6H PRN NAUSEA AND/OR VOMITING Oxycodone HCl 10 mg 09/26/19 12:31 09/26/19 12:44 Roxicodone - PO 10 mg Q4H PRN Administration PAIN LEVEL 6-10 Pantoprazole Sodium 40 mg 09/19/19 10:00 09/26/19 10:00 Protonix Iv IVPUSH 40 mg DAILY [facility] Administration 1. PANCHO 2. Spine wound infection 3. Hyponatremia in setting of decreased renal function now improved 4. hypokalemia 5. nephrolithiasis 6. m-spike Plan - decrease fluids - stop bicarb - replace potassium - replace mag - renal function improving - m-spike workup per hematology - avoid nephrotixins
--- NOTE | 2019-09-26 14:54 | PN ---
Physical Exam: SUBJECTIVE: Patient seen and examined at bedside. Feeling much better. OBJECTIVE: Vital Signs Period Temp Pulse Resp BP Sys/No Pulse Ox Last 24 Hr 98.0 F-98.6 F 72-91 15-24 152-182/58-74 96-98 Gen: AAOx3, NAD HEENT: NCAT, EOMI, moist membranes Neck: supple, no jvd, no bruits Cardio: rrr, normal s1s2, no mrg Pulm: limited auscultation as pt couldn't sit up/roll Abd: soft, nontender, nondistended Ext: no edema noted, SCDs in place Laboratory Results - last 24 hr 09/26/19 09/26/19 05:30 05:30 WBC 8.8 RBC 3.80 Hgb 10.5 L Hct 30.9 L MCV 81.5 MCH 27.6 MCHC 33.8 RDW 16.5 H Plt Count 395 MPV 6.4 L Absolute Neuts (auto) 6.0 Neutrophils % 68.1 Neutrophils % (Manual) 65.0 Band Neutrophils % 0.0 Lymphocytes % 15.9 Lymphocytes % (Manual) 13.0 D Monocytes % 9.0 Monocytes % (Manual) 7 Eosinophils % 5.8 H Eosinophils % (Manual) 10.0 H D Basophils % 1.2 Basophils % (Manual) 0.0 Myelocytes % (Man) 0 D Promyelocytes % (Man) 0 Blast Cells % (Manual) 0 Nucleated RBC % 0 Metamyelocytes 0 Platelet Estimate Normal Anisocytosis 1+ Sodium 144 Potassium 3.4 L Chloride 113 H Carbon Dioxide 19 L Anion Gap 12 BUN 23.7 H Creatinine 2.9 H Est GFR (CKD-EPI)AfAm 18.25 Est GFR (CKD-EPI)NonAf 15.74 Random Glucose 74 Calcium 8.5 Phosphorus 3.9 Magnesium 1.7 L Active Medications Generic Name Dose Route Start Last Admin Trade Name Freq PRN Reason Stop Dose Admin Amlodipine Besylate 10 mg 09/22/19 10:00 09/26/19 10:00 Norvasc - PO 10 mg DAILY [facility] Administration Benzocaine/Menthol 1 each 09/19/19 00:48 Cepacol Lozenge - MM PRN PRN SORE THROAT Chlorhexidine Gluconate 1 applic 09/19/19 22:00 09/25/19 23:00 Hibiclens For Decolonization - TP 1 applic HS [facility] Administration Ceftriaxone Sodium 1 gm/ 50 mls @ 100 mls/hr 09/19/19 10:00 09/26/19 10:30 Dextrose IVPB 100 mls/hr DAILY [facility] Administration Protocol Sodium Chloride 1,000 mls @ 42 mls/hr 09/26/19 13:51 1/2 Normal Saline IV ASDIR [facility] Labetalol HCl 100 mg 09/26/19 10:00 09/26/19 10:00 Normodyne - PO 100 mg BID [facility] Administration Lactobacillus Acidophilus 1 tab 09/19/19 06:00 09/26/19 05:31 Bacid - PO 1 tab TID [facility] Administration Ondansetron HCl 4 mg 09/19/19 00:48 Zofran Injection IVPUSH Q6H PRN NAUSEA AND/OR VOMITING Oxycodone HCl 10 mg 09/26/19 12:31 09/26/19 12:44 Roxicodone - PO 10 mg Q4H PRN Administration PAIN LEVEL 6-10 Pantoprazole Sodium 40 mg 09/19/19 10:00 09/26/19 10:00 Protonix Iv IVPUSH 40 mg DAILY [facility] Administration ASSESSMENT/PLAN: Pt is a 68 y/o F with no known medical problems who presented to hospital for complication/infection of surgical site of L1-S1 posterior decompression & T11- S1 instrumented fusion (08/26/2019). Heme/Onc was called to evaluate M-spike detected on labs. M spike -likely 2/2 infection/surgery/inflammation -no elevation in protein or calcium. -alb/glob ratio 0.8 -U free kappa:lambda ratio wnl -Serum free kappa:lambda ratio wnl -immunofixation without evidence of monoclonal protein -taken together, suggests against monoclonal gammopathy or MM Visit type - Emergency Visit Emergency Visit: No - New Patient This patient is new to me today: No - Critical Care Critical Care patient: Yes Total Critical Care Time (in minutes): 30 Critical Care Statement: The care of this patient involved high complexity decision making to prevent further life threatening deterioration of the patient 's condition and/or to evaluate & treat vital organ system(s) failure or risk of failure. ATTENDING PHYSICIAN STATEMENT I saw and evaluated the patient. I reviewed the resident's note and discussed the case with the resident. I agree with the resident's findings and plan as documented. SUBJECTIVE: OBJECTIVE: ASSESSMENT AND PLAN:
[2019-09-26] MEDS: CHLORHEXIDINE GLUCONATE 4% CLEANSER FOR DECOLONIZATION TP SCH (21:32)
[2019-09-27] MEDS: oxyCODONE HCL 5 MG TABLET PO PRN ×4 (05:00→21:13)
[2019-09-27] MEDS: LACTOBACILLUS ACIDOPHILUS 1 TABLET PO SCH ×3 (05:32→21:13)
[2019-09-27 06:11] LABS: BASO % 0.4 % (0-2.0); EOS % 4.3 % (0-4.5); HEMATOCRIT 28.1 % (32.4-45.2); HEMOGLOBIN 9.4 GM/dL (10.7-15.3); LYMPH % 15.6 % (8-40); MCH 27.4 pg (25.7-33.7); MCHC 33.5 g/dl (32.0-36.0); MEAN CELL VOLUME 81.8 fl (80-96); MEAN PLT VOLUME 6.2 fl (7.5-11.1); MONO % 9.3 % (3.8-10.2); NEUT % 70.4 % (42.8-82.8); PLATELET COUNT 347 K/MM3 (134-434); RBC 3.44 M/mm3 (3.60-5.2); RDW 16.8 % (11.6-15.6); WHITE BLOOD COUNT 9.1 K/mm3 (4.0-10.0)
[2019-09-27 06:41] LABS: BILIRUBIN,TOTAL 0.4 mg/dL (0.2-1); BLOOD UREA NITROGEN 25.2 mg/dL (7-18); CALCIUM 8.6 mg/dL (8.5-10.1); CREATININE 2.8 mg/dL (0.55-1.3); MAGNESIUM 1.5 mg/dL (1.8-2.4); PHOSPHOROUS 4.2 mg/dL (2.5-4.9); POTASSIUM 3.3 mmol/L (3.5-5.1); TOT PROT 5.1 g/dl (6.4-8.2)
[2019-09-27] MEDS ORDERED: MAGNESIUM OXIDE 400 MG TABLET (FP) PO ONE ×2 (07:17→07:32)
[2019-09-27] MEDS ORDERED: POTASSIUM CHLORIDE TABS 20 MEQ TABLET.ER (FP) PO ONE (07:18)
--- NOTE | 2019-09-27 07:35 | PN ---
Physical Exam: SUBJECTIVE: Patient seen and examined by the bedside. Reports improvement in her back pain. OBJECTIVE: Vital Signs Period Temp Pulse Resp BP Sys/No Pulse Ox Last 24 Hr 98.1 F-98.6 F 72-95 12-20 121-173/56-85 96-98 GENERAL: AOx3 HEAD: Normal with no signs of trauma, EOMI, no scleral icterus, no ptosis, moist mucous membranes, trachea midline. LUNGS: Clear B/L, clear to auscultation, no wheezes, no crackles, no accessory muscle use. HEART: RRR, S1, S2 without murmur, rub or gallop. ABDOMEN: Soft, nontender, nondistended, normoactive bowel sounds, no guarding. EXTREMITIES: 2+ pulses, warm, well-perfused, no edema, SCDs in place. NEUROLOGICAL: Normal speech, gait not observed. SKIN: Warm, dry, no rashes noted Laboratory Results - last 24 hr 09/26/19 09/26/19 09/27/19 05:30 05:30 05:45 WBC 8.8 9.1 RBC 3.80 3.44 L Hgb 10.5 L 9.4 L Hct 30.9 L 28.1 L MCV 81.5 81.8 MCH 27.6 27.4 MCHC 33.8 33.5 RDW 16.5 H 16.8 H Plt Count 395 347 MPV 6.4 L 6.2 L Absolute Neuts (auto) 6.0 6.4 Neutrophils % 68.1 70.4 Neutrophils % (Manual) 65.0 Band Neutrophils % 0.0 Lymphocytes % 15.9 15.6 Lymphocytes % (Manual) 13.0 D Monocytes % 9.0 9.3 Monocytes % (Manual) 7 Eosinophils % 5.8 H 4.3 Eosinophils % (Manual) 10.0 H D Basophils % 1.2 0.4 Basophils % (Manual) 0.0 Myelocytes % (Man) 0 D Promyelocytes % (Man) 0 Blast Cells % (Manual) 0 Nucleated RBC % 0 0 Metamyelocytes 0 Platelet Estimate Normal Anisocytosis 1+ Sodium 144 Potassium 3.4 L Chloride 113 H Carbon Dioxide 19 L Anion Gap 12 BUN 23.7 H Creatinine 2.9 H Est GFR (CKD-EPI)AfAm 18.25 Est GFR (CKD-EPI)NonAf 15.74 Random Glucose 74 Calcium 8.5 Phosphorus 3.9 Magnesium 1.7 L Total Bilirubin AST ALT Alkaline Phosphatase Total Protein Albumin 09/27/19 05:45 WBC RBC Hgb Hct MCV MCH MCHC RDW Plt Count MPV Absolute Neuts (auto) Neutrophils % Neutrophils % (Manual) Band Neutrophils % Lymphocytes % Lymphocytes % (Manual) Monocytes % Monocytes % (Manual) Eosinophils % Eosinophils % (Manual) Basophils % Basophils % (Manual) Myelocytes % (Man) Promyelocytes % (Man) Blast Cells % (Manual) Nucleated RBC % Metamyelocytes Platelet Estimate Anisocytosis Sodium 142 Potassium 3.3 L Chloride 112 H Carbon Dioxide 20 L Anion Gap 10 BUN 25.2 H Creatinine 2.8 H Est GFR (CKD-EPI)AfAm 19.04 Est GFR (CKD-EPI)NonAf 16.43 Random Glucose 80 Calcium 8.6 Phosphorus 4.2 Magnesium 1.5 L Total Bilirubin 0.4 AST 9 L ALT 10 L Alkaline Phosphatase 92 Total Protein 5.1 L Albumin 2.0 L Active Medications Generic Name Dose Route Start Last Admin Trade Name Freq PRN Reason Stop Dose Admin Amlodipine Besylate 10 mg 09/22/19 10:00 09/26/19 10:00 Norvasc - PO 10 mg DAILY [facility] Administration Benzocaine/Menthol 1 each 09/19/19 00:48 Cepacol Lozenge - MM PRN PRN SORE THROAT Chlorhexidine Gluconate 1 applic 09/19/19 22:00 09/26/19 21:32 Hibiclens For Decolonization - TP 1 applic HS [facility] Administration Ceftriaxone Sodium 1 gm/ 50 mls @ 100 mls/hr 09/19/19 10:00 09/26/19 10:30 Dextrose IVPB 100 mls/hr DAILY [facility] Administration Protocol Sodium Chloride 1,000 mls @ 42 mls/hr 09/26/19 13:51 09/26/19 21:31 1/2 Normal Saline IV Not Given ASDIR [facility] Labetalol HCl 100 mg 09/26/19 10:00 09/26/19 21:32 Normodyne - PO 100 mg BID [facility] Administration Lactobacillus Acidophilus 1 tab 09/19/19 06:00 09/27/19 05:32 Bacid - PO 1 tab TID [facility] Administration Magnesium Oxide 400 mg 09/27/19 07:17 Mag-Ox - PO 09/27/19 07:18 ONCE ONE Ondansetron HCl 4 mg 09/19/19 00:48 Zofran Injection IVPUSH Q6H PRN NAUSEA AND/OR VOMITING Oxycodone HCl 10 mg 09/26/19 12:31 09/27/19 05:00 Roxicodone - PO 10 mg Q4H PRN Administration PAIN LEVEL 6-10 Pantoprazole Sodium 40 mg 09/19/19 10:00 09/26/19 10:00 Protonix Iv IVPUSH 40 mg DAILY [facility] Administration Potassium Chloride 40 meq 09/27/19 07:18 K-Dur - PO 09/27/19 07:19 ONCE ONE ASSESSMENT/PLAN: 68F with no significant PMH, history of multiple spinal surgeries: 08/26/19: L1-S1 posterior decompression & T11-S1 instrumented fusion 09/09/19: I&D posterior thoracolumbar spine 09/11/19: I&D with wound vac application 09/14/19: I&D with debridement thoracolumbar spine, exchanged wound vac 09/16/19: Repeat I&D 09/18/19: I&D with complex wound closure (POD#9) #Neuro - POD#9 after washout and closure - Analgesia: [employer], patient refuses valium - discontinued - Physical Therapy, has been walking the past few days - Started Lexapro as patient has been tearful and depressed on exam - patient refuses - discontinued #Cardio - Hypertensive, continue on Norvasc 10mg daily, added Labetalol if needed #Pulm - Maintain O2 saturation >90%, incentive spirometry encouraged #GI - C Diff antigen + toxin -, Vanco 125mg PO Q6H started 09/16 - Rectal tube in place since 09/13, may be removed today prior to transfer #ID - ID recs: Continue Ceftriaxone 4 more weeks (total 6 weeks), pending PICC line palcement today - C Diff positive, Vanco 125mg PO Q6H, final dose today for total 10 days ( started 09/16) - Ova and Parasites negative, F/u second O&P study - Wound cx 09/09: Campylobacter Gracilis, E coli, Bacteroides Fragilis #Renal - Cr downtrending, monitor daily - Differential for worsening renal function: PANCHO/Hypoperfusion due to infection/ abcess vs. AIN from abx vs. hemodynamic injury hypoperfusion - Renal recs: Continue Bicarb PO - Baird in place, february D/C today #Heme - 9.4 - Heme/Onc recs for M-spike: likely 2/2 infection/surgery/inflammation, DDs: MGUS/smoldering MM, outpatient F/U - Urine [place] ratio elevated 99.1./11.4 #Prophylaxis - VLADISLAV, SCD - Protonix 40mg IV #FEN - 1/2 N/S @75 - Mg 1.5, repleted - Regular diet #Disposition - D/C to [facility] today after PICC placement for 4 more weeks of Ceftriaxone as per Dr. Villa ATTENDING PHYSICIAN STATEMENT I saw and evaluated the patient. I reviewed the resident's note and discussed the case with the resident. I agree with the resident's findings and plan as documented. SUBJECTIVE: OBJECTIVE: ASSESSMENT AND PLAN:
[2019-09-27] MEDS ORDERED: POTASSIUM CHLORIDE ORAL LIQUID 20 MEQ/15 ML PO ONE (08:17)
[2019-09-27] MEDS ORDERED: cefTRIAXone SODIUM 1 GM VIAL ONE (09:30)
[2019-09-27] MEDS ORDERED: DEXTROSE 5%-WATER - 50 ML IVPB ONE (09:31)
[2019-09-27 09:50] LABS: ANISOCYTOSIS 0; MACROCYTOSIS 0; PLATELET ESTIMATE NORMAL
--- NOTE | 2019-09-27 09:58 | PN ---
Teaching Attending Note Name of Resident: Winston Knott ATTENDING PHYSICIAN STATEMENT I saw and evaluated the patient. I reviewed the resident's note and discussed the case with the resident. I agree with the resident's findings and plan as documented. SUBJECTIVE: Patient seen and examined in the ICU. No overnight events. No fevers or chills. OBJECTIVE: Intake & Output 09/24/19 09/25/19 09/26/19 09/27/19 23:59 23:59 23:59 23:59 Intake Total 2245 2413 1287 604 Output Total 3240 2080 2720 1000 Balance -995 333 -1433 -396 Last Vital Signs Temp Pulse Resp BP Pulse Ox 98.1 F 79 18 151/61 98 09/27/19 06:00 09/27/19 08:50 09/27/19 08:50 09/27/19 08:50 09/27/19 09:00 Active Medications Amlodipine Besylate (Norvasc -) 10 mg PO DAILY [facility] Last Admin: 09/26/19 10:00 Dose: 10 mg Benzocaine/Menthol (Cepacol Lozenge -) 1 each MM PRN PRN PRN Reason: SORE THROAT Chlorhexidine Gluconate (Hibiclens For Decolonization -) 1 applic TP HS [facility] Last Admin: 09/26/19 21:32 Dose: 1 applic Ceftriaxone Sodium 1 gm/ (Dextrose) 50 mls @ 100 mls/hr IVPB DAILY [facility]; Protocol Last Admin: 09/26/19 10:30 Dose: 100 mls/hr Sodium Chloride (1/2 Normal Saline) 1,000 mls @ 42 mls/hr IV ASDIR [facility] Last Admin: 09/26/19 21:31 Dose: Not Given Labetalol HCl (Normodyne -) 100 mg PO BID [facility] Last Admin: 09/26/19 21:32 Dose: 100 mg Lactobacillus Acidophilus (Bacid -) 1 tab PO TID [facility] Last Admin: 09/27/19 05:32 Dose: 1 tab Ondansetron HCl (Zofran Injection) 4 mg IVPUSH Q6H PRN PRN Reason: NAUSEA AND/OR VOMITING Oxycodone HCl (Roxicodone -) 10 mg PO Q4H PRN PRN Reason: PAIN LEVEL 6-10 Last Admin: 09/27/19 05:00 Dose: 10 mg Pantoprazole Sodium (Protonix Iv) 40 mg IVPUSH DAILY [facility] Last Admin: 09/26/19 10:00 Dose: 40 mg Gen: NAD at rest Heart: RRR Lung: decreased breath sounds at the bases Abd: soft, nontender Ext: no edema Laboratory Results - last 24 hr 09/27/19 09/27/19 05:45 05:45 WBC 9.1 RBC 3.44 L Hgb 9.4 L Hct 28.1 L MCV 81.8 MCH 27.4 MCHC 33.5 RDW 16.8 H Plt Count 347 MPV 6.2 L Absolute Neuts (auto) 6.4 Neutrophils % 70.4 Lymphocytes % 15.6 Monocytes % 9.3 Eosinophils % 4.3 Basophils % 0.4 Nucleated RBC % 0 Sodium 142 Potassium 3.3 L Chloride 112 H Carbon Dioxide 20 L Anion Gap 10 BUN 25.2 H Creatinine 2.8 H Est GFR (CKD-EPI)AfAm 19.04 Est GFR (CKD-EPI)NonAf 16.43 Random Glucose 80 Calcium 8.6 Phosphorus 4.2 Magnesium 1.5 L Total Bilirubin 0.4 AST 9 L ALT 10 L Alkaline Phosphatase 92 Total Protein 5.1 L Albumin 2.0 L ASSESSMENT AND PLAN: Thoracolumbar spine wound infection/Abscess s/p I&D Acute Kidney Injury Anemia +C diff Ag - continue antibiotics per ID - pain control - incentive spirometry - IVF - monitor urine output, creatinine - replete lytes - rehab/PT - DVT prophylaxis - For PICC line - d/c planning Dr Patterson
[2019-09-27] MEDS: amLODIPine BESYLATE 10 MG TABLET (FP) PO SCH (09:59)
[2019-09-27] MEDS: LABETALOL HCL 100 MG TABLET (FP) PO SCH ×2 (09:59→21:13)
[2019-09-27] MEDS: PANTOPRAZOLE SODIUM 40 MG VIAL IVPUSH SCH (10:00)
[2019-09-27] MEDS: CEFTRIAXONE 1 GM in DEXTROSE 5%-WATER - 50 ML IVPB SCH (10:00)
--- NOTE | 2019-09-27 10:33 | PN ---
Progress Note (short form) - Note Progress Note: Patient seen and examined last night: 68F s/p L1-S1 posterior decompression & T11-S1 instrumented fusion (08/26/2019) p/w 400cc epidural abscess (09/09/2019) now s/p I&D posterior thoracolumbar spine w/delayed primary closure POD #9. Pain well controlled. No acute events overnight. Pt. denies overnight history of headaches, chest pain, shortness of breath, nausea, vomiting, chills, & sweats. (+) Baird; (+) Flatus; (+) BM/rectal tube. 10 days x PO Vancomycin completed. Pt. ambulated in hallway today and sat in chair x 3 hours. All labs and vitals reviewed. PE: AAO x 3, NAD. T/L-Spine: Dressing lifted off distally; distal wound soiled with stool. Incision well epithelialized, dry & intact. No sign of local inflammation. Drains intact, in place; 20cc serosanguinous drainage; drains removed. Incision and wayne-incisional soft tissues scrubbed with chlorhexidine soap and scrub sponge, then dried and painted with DuraPrep. Clean 4x4 dressings & Ioban adhesive applied. B/L LE NV status at baseline. 68F s/p L1-S1 posterior decompression & T11-S1 instrumented fusion (08/26/2019) p/w 400cc epidural abscess (09/09/2019) now s/p I&D posterior thoracolumbar spine w/delayed primary closure POD #9. -PICC line today; once placement and function confirmed; proceed with discharge planning to [facility]. -f/u final ID recommendations: Ceftriaxone 1g IV qD x 4 weeks. -f/u Renal team rec's re: PANCHO & hypertension. -Remove rectal tube today. -Pain medication: oral meds; NO NSAID's. -Nursing Care: -Offload heals with rolled towels under ankles to avoid heel ulcers/pressure sores. -Log roll q2h/place on wedge pillows to avoid sacral decubitus ulcer formation. -Attentive perineal hygiene. -PT/OT/Rehab: -No heavy lifting (>5 lbs), bending or twisting x 6 months post op. -WBAT B/L LE. -Out of bed and ambulating with assistance. -Patient has been bedbound for weeks; all lower extremity joints are stiff and lower extremity musculature has atrophied & weakened. -Mobilize bed to chair with physical therapy team at least BID with ambulation/gait training as well. -Patient is to flex & extend ankles, knees, and hips throughout the day - especially when not working with physical therapy team. -f/u daily labs. -DVT PPx: -Mechanical only: VLADISLAV's, SCD's. -Incentive spirometry q5-10 min. -Care per ICU, ID, renal, hematology & medical hospitalist teams. -Discharge planning: plan to d/c back to [place] when medically fit - hopefully Monday09/27/2019. -Will follow. Eliezer Villa MD (Orthopaedic Surgery).
--- NOTE | 2019-09-27 13:40 | PN ---
Progress Note, Physician History of Present Illness: Pt seen and examined at bedside. She is awake and alert. She denies shortness of breath. - Current Medication List Current Medications: Active Medications Amlodipine Besylate (Norvasc -) 10 mg PO DAILY [facility] Last Admin: 09/27/19 09:59 Dose: 10 mg Benzocaine/Menthol (Cepacol Lozenge -) 1 each MM PRN PRN PRN Reason: SORE THROAT Chlorhexidine Gluconate (Hibiclens For Decolonization -) 1 applic TP HS [facility] Last Admin: 09/26/19 21:32 Dose: 1 applic Ceftriaxone Sodium 1 gm/ (Dextrose) 50 mls @ 100 mls/hr IVPB DAILY [facility]; Protocol Last Admin: 09/27/19 10:00 Dose: 100 mls/hr Sodium Chloride (1/2 Normal Saline) 1,000 mls @ 42 mls/hr IV ASDIR [facility] Last Admin: 09/26/19 21:31 Dose: Not Given Labetalol HCl (Normodyne -) 100 mg PO BID [facility] Last Admin: 09/27/19 09:59 Dose: 100 mg Lactobacillus Acidophilus (Bacid -) 1 tab PO TID [facility] Last Admin: 09/27/19 05:32 Dose: 1 tab Ondansetron HCl (Zofran Injection) 4 mg IVPUSH Q6H PRN PRN Reason: NAUSEA AND/OR VOMITING Oxycodone HCl (Roxicodone -) 10 mg PO Q4H PRN PRN Reason: PAIN LEVEL 6-10 Last Admin: 09/27/19 09:59 Dose: 10 mg Pantoprazole Sodium (Protonix Iv) 40 mg IVPUSH DAILY [facility] Last Admin: 09/27/19 10:00 Dose: 40 mg - Objective Vital Signs: Vital Signs Temperature 98.3 F 09/27/19 10:00 Pulse Rate 76 09/27/19 12:00 Respiratory Rate 17 09/27/19 12:00 Blood Pressure 132/56 L 09/27/19 12:00 O2 Sat by Pulse Oximetry (%) 98 09/27/19 09:00 Constitutional: Yes: Calm Eyes: Yes: Conjunctiva Clear HENT: Yes: Atraumatic Cardiovascular: Yes: S1, S2 Respiratory: Yes: CTA Bilaterally Gastrointestinal: Yes: Soft Genitourinary: Yes: Baird Present Edema: Yes Edema: LLE: Trace, RLE: Trace Neurological: Yes: Oriented Psychiatric: Yes: Oriented Labs: CBC, BMP 09/27/19 05:45 09/27/19 05:45 INR, PTT INR 1.69 (0.83-1.09) H 09/13/19 05:45 Problem List - Problems (1) PANCHO (acute kidney injury) Code(s): N17.9 - ACUTE KIDNEY FAILURE, UNSPECIFIED (2) Hypokalemia Code(s): E87.6 - HYPOKALEMIA (3) Wound infection after surgery Code(s): T81.49XA - INFECTION FOLLOWING A PROCEDURE, OTHER SURGICAL SITE, INIT (4) Hx of decompressive lumbar laminectomy Code(s): Z98.890 - OTHER SPECIFIED POSTPROCEDURAL STATES Assessment/Plan Current Medications Generic Name Dose Route Start Last Admin Trade Name Freq PRN Reason Stop Dose Admin Amlodipine Besylate 10 mg 09/22/19 10:00 09/27/19 09:59 Norvasc - PO 10 mg DAILY [facility] Administration Benzocaine/Menthol 1 each 09/19/19 00:48 Cepacol Lozenge - MM PRN PRN SORE THROAT Chlorhexidine Gluconate 1 applic 09/19/19 22:00 09/26/19 21:32 Hibiclens For Decolonization - TP 1 applic HS [facility] Administration Ceftriaxone Sodium 1 gm/ 50 mls @ 100 mls/hr 09/19/19 10:00 09/27/19 10:00 Dextrose IVPB 100 mls/hr DAILY [facility] Administration Protocol Sodium Chloride 1,000 mls @ 42 mls/hr 09/26/19 13:51 09/26/19 21:31 1/2 Normal Saline IV Not Given ASDIR [facility] Labetalol HCl 100 mg 09/26/19 10:00 09/27/19 09:59 Normodyne - PO 100 mg BID [facility] Administration Lactobacillus Acidophilus 1 tab 09/19/19 06:00 09/27/19 05:32 Bacid - PO 1 tab TID [facility] Administration Ondansetron HCl 4 mg 09/19/19 00:48 Zofran Injection IVPUSH Q6H PRN NAUSEA AND/OR VOMITING Oxycodone HCl 10 mg 09/26/19 12:31 09/27/19 09:59 Roxicodone - PO 10 mg Q4H PRN Administration PAIN LEVEL 6-10 Pantoprazole Sodium 40 mg 09/19/19 10:00 09/27/19 10:00 Protonix Iv IVPUSH 40 mg DAILY [facility] Administration 1. PANCHO likely ATN 2. Spine wound infection 3. Hyponatremia in setting of decreased renal function now improved 4. hypokalemia 5. nephrolithiasis 6. m-spike Plan - can stop fluids - replace lytes - discussed with ICU team - etiology of PANCHO likely atn - will need to monitor renal function as outpt - m-spike workup per hematology - avoid nephrotixins
--- NOTE | 2019-09-27 18:31 | PN ---
Progress Note (short form) - Note Progress Note: Hospitalist Medicine Resting in bed. No new complaints. Per CM, awaiting bed at [place] . [facility] complete [place] physician is Dr. Cruz at [phone] Vitals 09/27/19 09/27/19 14:00 17:00 Temperature 98.3 F Pulse Rate 77 Respiratory 12 Rate Blood Pressure 139/58 L Physical Exam GENERAL: resting in bed, in NAD. HEENT: NCAT, moist MM NECK: Trachea midline, full range of motion, supple. LUNGS: CTA b/l. no accessory m usage HEART: S1, S2 RRR. no r/m/g BACK: limited ROM ABDOMEN: soft, nontender , nondistended EXTREMITIES: no pedal edema. pulses intact NEUROLOGICAL: high scaler 2-12 grossly intact. however able to move UE, LE Laboratory Tests 09/27/19 09/27/19 05:45 05:45 WBC 9.1 Hgb 9.4 L Hct 28.1 L Plt Count 347 Sodium 142 Potassium 3.3 L Chloride 112 H Carbon Dioxide 20 L BUN 25.2 H Creatinine 2.8 H Magnesium 1.5 L AST 9 L ALT 10 L Total Protein 5.1 L Albumin 2.0 L Microbiology 09/16/19 16:13 Back Gram Stain - Final 09/16/19 16:13 Back Wound Culture - Final NO AEROBIC OR ANAEROBIC GROWTH OBTAINED. 09/16/19 01:30 Stool Gram Stain - Final 09/16/19 01:30 Stool Clostridioides difficile Antigen - Final 09/16/19 01:30 Stool Clostridioides difficile Toxin Assay - Final 09/14/19 10:27 Back Gram Stain - Final 09/14/19 10:27 Back Wound Culture - Final NO AEROBIC OR ANAEROBIC GROWTH OBTAINED. 09/14/19 10:26 Back Gram Stain - Final 09/14/19 10:26 Back Wound Culture - Final NO AEROBIC OR ANAEROBIC GROWTH OBTAINED. 09/14/19 10:24 Back Gram Stain - Final 09/14/19 10:24 Back Wound Culture - Final NO AEROBIC OR ANAEROBIC GROWTH OBTAINED. 09/12/19 15:28 Blood - Peripheral Venous Blood Culture - Final NO GROWTH AFTER 5 DAYS INCUBATION 09/12/19 15:20 Blood - Peripheral Venous Blood Culture - Final NO GROWTH AFTER 5 DAYS INCUBATION 09/09/19 16:30 Back Gram Stain - Final 09/09/19 16:30 Back Wound Culture - Final Escherichia Coli Bacteroides Fragilis Campylobacter Gracilis 09/09/19 14:53 Urine - Urine - Catheterized Urine Culture - Final NO GROWTH OBTAINED Imaging 09/09/19: CXR: s/p anterior cervical fusion. ortho hardware in the lower thoracic, upper lumbosacral spine. cardiomegaly. uncoiled thoracic aorta. no evidence of pneumothorax or large pl effusion. no evidence of pulm edema. linear opacities are noted in the right mid lung zone atelectatic changes. 09/15/19: Renal sono: nonobstructing R renal calculus 1.1cm echogenic focus lower pole R kidney 09/15/19: Abd sono: fatty infiltration of enlarged liver, cholelithiasis, nonobstructing R renal calculus, R renal cyst Assessment/Plan 68 y/o F with no significant PMH who presents s/p L1-S1 posterior decompression & T11-S1 instrumented fusion (08/26/2019) now p/w wound infection. #s/p L1-S1 posterior decompression & T11-S1 instrumented fusion (08/26/2019) -s/p multiple I&D, most recent repeat washout, debridement thoracolumbar spine -d/c zosyn. started on rocephin (09/18). will need PICC 4 additional wks abx on d /c via PICC -recent cx (-) -incentive spirometer -pain control: danilo PRN per sx -ID: Dr. Tesfaye -Sx: Dr. Villa #M spike -differentials - MGUS, MM, but likely 2/2 infection, inflammation -repeat when clinically stable -elevated K,L. protein w/u - in process -heme/onc: Dr. Finn #PANCHO vs. PANCHO on CKD - improving -monitoring off IVF -Fena 1.4% intrinsic could be ATN -c/t monitor -nephro: Dr. Loo #R/o c. diff -with c. diff ag (+) however toxin (-) -completed 10 day course of vanc 125mg PO q6h prophylactically -ID: Dr. Tesfaye #F/E/N monitoring off IVF continue to follow lytes regular diet #PPX mechanical only- SCD/TEDs GI: protonix #Dispo ICU monitoring case d/w [facility] physician, PICC in place . awaiting bed at [place] , then will be transferred dc order is in <Soha Reilly - Last Filed: 09/27/19 18:23> - Note Progress Note: Seen and examined; agree with above aside from as supplemented below by myself. Personally verified all historical information and yang PE findings. Independently reviewed all labs and diagnostics. I discussed the case at length with the resident and consulting services. All questions answered. Seen in ICU Seen and examined; no new complaints. Diarrhea improved and feeling well otherwise. No new complaints aside from chronic pain; she is making ATC use of her opioids and continues to complain of discomfort with moving. I was informed by the resident that she did not complete PT this morning; confirmed with patient this was initially the case due to the soreness with transfer from her bed with the attempt. She did, however, complete a session later in the day. She is ambulatory and without any indication of new or worsening myelopathy. Her wound is healing well with some associated tenderness. Today she has no new complaints and is seen en route for PICC line. She asks the nurse if she needs to stay an additional day as she is not sure if the PICC will work correctly; RN provided counseling. No acute events overnight. In good spirits. Will discuss with subspecialty consults prior and ensure complete and proper followup. 10 sys ROS done and negative aside from HPI GENERAL: The patient is awake, alert, and fully oriented, in no acute distress. HEAD: Normal with no signs of trauma. EYES: PERRL, extraocular movements intact, sclera anicteric, conjunctiva clear. No ptosis. ENT: Ears normal, nares patent, oropharynx clear without exudates, moist mucous membranes. NECK: Trachea midline, full range of motion, supple. LUNGS: Breath sounds equal, clear to auscultation bilaterally, no wheezes, no crackles, no accessory muscle use. HEART: Regular rate and rhythm, S1, S2 without murmur, rub or gallop. ABDOMEN: Soft, nontender, nondistended, normoactive bowel sounds EXTREMITIES: 2+ pulses, warm, well-perfused, no edema. Moves all 4 with normal strength. NEUROLOGICAL: Cranial nerves II through XII grossly intact. Normal speech, gait not observed. PSYCH: Normal mood, normal affect. SKIN: Warm, dry, normal turgor, no rashes or lesions noted. Post op wound dressings are c/d/i with some tenderness around the area but no signs of cellulitis, fluctuance, or apparent abscess or drainage. A/P: Patient continues to improve in terms of their postoperative wound infection and will be transferred to [facility] [place]. She was counseled extensively regarding the ongoing importance of PT. 4 weeks IV Ceftriaxone per ID, completed PO Vancomycin. Renal function improved and is not oliguric and will require contiinued monitoring of BMP and followup with nephrology services. PICC insertion with plans to DC post procedure. Problems include: -Postoperative wound infection (L1-S1 posterior decompression & T11-S1 instrumented fusion (08/26/2019) p/w 400cc epidural abscess (09/09/2019) now s/ p I&D posterior thoracolumbar spine w/delayed primary closure POD #9. Per ID 4 additional weeks ceftriaxone per PICC; micro reviewed. Postoperative instructions per surgical service.) -Cdif Ag+ (Completed PO vancomycin per ID) -PANCHO on CKD (Nephrology consulted; renal function continues to improve. Etiology is likely secondary to ATN. She will need to continue to avoid nephrotoxic agents and monitor her renal function as an outpatient.) -Anemia, stable (Monitor H/H as outpatient; was transfused per sgy during this hospitalization as documented.) -Acute on chronic back pain (Cause of the initial back surgery that developed the postoperative wound infection) -Morbid obesity (BMI 38.5; counseled and will be exercising with PT. Unfortunately a hindrance to wound healing) -Hypoalbuminemia (Likely secondary to chronic illness; monitoring) -Elevated alk phos (Will need OP CMP monitoring and consideration of nonurgent GI followup with consideraton of re-imaging RUQ should she ever develoop symptoms due to the presence of gallstones. No evidence of cholecystitis or cholangitis and may be secondary to undelying disease process/treatment as well. Forwarding all imaging reports, etc. to PCP on DC) -Non-obstructing R-renal calculus (Noted incidentally in the workup of renal failure; stable and may followup with PCP) -M spike (continue to followup recs per Dr. Finn; needs OP followup. Per onco is likely secondary to inflammation/infection. Monitor CMP as OP and FU with onco) -HypoNa (improved; followup OP to ensure no further issues) -HypoK (improved) -Chronic Pain -Physical Deconditioning PT instructions per Dr. Villa: -PT/OT/Rehab: -No heavy lifting (>5 lbs), bending or twisting x 6 months post op. -WBAT B/L LE. -Out of bed and ambulating with assistance. -Patient has been bedbound for weeks; all lower extremity joints are stiff and lower extremity musculature has atrophied & weakened. -Mobilize bed to chair with physical therapy team at least BID with ambulation/gait training as well. -Patient is to flex & extend ankles, knees, and hips throughout the day - especially when not working with physical therapy team. Full Code <Christopher Goodwin - Last Filed: 09/28/19 06:29>
--- NOTE | 2019-09-27 19:30 | PN ---
Progress Note (short form) - Note Progress Note: Patient not able to be [facility] to [facility] today as they do not have any private rooms and thought that patient needed to be in isolation. However, patient has been treated for C diff and no longer needs isolation precautions and can go to a double room at [place]. Patient to be discharged tomorrow.
[2019-09-27] MEDS: CHLORHEXIDINE GLUCONATE 4% CLEANSER FOR DECOLONIZATION TP SCH (21:13)
[2019-09-28] MEDS: LACTOBACILLUS ACIDOPHILUS 1 TABLET PO SCH ×3 (05:04→22:14)
[2019-09-28] MEDS: oxyCODONE HCL 5 MG TABLET PO PRN ×3 (05:04→19:59)
[2019-09-28] MEDS ORDERED: cefTRIAXone SODIUM 1 GM VIAL ONE (08:56)
[2019-09-28] MEDS ORDERED: DEXTROSE 5%-WATER - 50 ML IVPB ONE (08:56)
[2019-09-28] MEDS: CEFTRIAXONE 1 GM in DEXTROSE 5%-WATER - 50 ML IVPB SCH (09:07)
[2019-09-28] MEDS: LABETALOL HCL 100 MG TABLET (FP) PO SCH (09:08)
[2019-09-28] MEDS: amLODIPine BESYLATE 10 MG TABLET (FP) PO SCH (09:08)
[2019-09-28] MEDS: PANTOPRAZOLE SODIUM 40 MG VIAL IVPUSH SCH (09:08)
[2019-09-28] MEDS ORDERED: ONDANSETRON 4 MG/2 ML VIAL IVPUSH PRN (10:32)
[2019-09-28] MEDS ORDERED: BENZOCAINE/MENTH/CETYLPYRD CL 1 EACH LOZENGE MM PRN (10:32)
--- NOTE | 2019-09-28 12:29 | PN ---
Progress Note, Physician History of Present Illness: stable central line in place - Current Medication List Current Medications: Active Medications Amlodipine Besylate (Norvasc -) 10 mg PO DAILY [facility] Benzocaine/Menthol (Cepacol Lozenge -) 1 each MM PRN PRN PRN Reason: SORE THROAT Chlorhexidine Gluconate (Hibiclens For Decolonization -) 1 applic TP HS [facility] Ceftriaxone Sodium 1 gm/ (Dextrose) 50 mls @ 100 mls/hr IVPB DAILY [facility]; Protocol Labetalol HCl (Normodyne -) 100 mg PO BID [facility] Lactobacillus Acidophilus (Bacid -) 1 tab PO TID [facility] Ondansetron HCl (Zofran Injection) 4 mg IVPUSH Q6H PRN PRN Reason: NAUSEA AND/OR VOMITING Oxycodone HCl (Roxicodone -) 10 mg PO Q4H PRN PRN Reason: PAIN LEVEL 6-10 Pantoprazole Sodium (Protonix Iv) 40 mg IVPUSH DAILY [facility] - Objective Vital Signs: Vital Signs Temperature 98.4 F 09/28/19 06:00 Pulse Rate 79 09/28/19 08:00 Respiratory Rate 16 09/28/19 09:00 Blood Pressure 145/65 09/28/19 08:00 O2 Sat by Pulse Oximetry (%) 98 09/28/19 09:00 Constitutional: Yes: No Distress, Calm, Obese Cardiovascular: Yes: S1, S2 Respiratory: Yes: Regular, CTA Bilaterally Gastrointestinal: Yes: Normal Bowel Sounds, Soft Musculoskeletal: Yes: WNL Extremities: Yes: WNL Wound/Incision: Yes: Clean/Dry Neurological: Yes: Alert, Oriented Psychiatric: Yes: Alert, Oriented Labs: CBC, BMP 09/27/19 05:45 09/27/19 05:45 INR, PTT INR 1.69 (0.83-1.09) H 09/13/19 05:45 Assessment/Plan Problem List - Problems (1) PANCHO (acute kidney injury) Code(s): N17.9 - ACUTE KIDNEY FAILURE, UNSPECIFIED (2) Wound infection after surgery Code(s): T81.49XA - INFECTION FOLLOWING A PROCEDURE, OTHER SURGICAL SITE, INIT (3) Hx of decompressive lumbar laminectomy Code(s): Z98.890 - OTHER SPECIFIED POSTPROCEDURAL STATES Assessment/Plan Thoraco-lumbar spine infection/abscess s/p I+D POD#4 PANCHO Anemia plan continue abx complete the course ads advised patient has no dirrhoea cdiff treatment completed patient was toxin negative she probably is a carrier
[2019-09-28] MEDS ORDERED: POTASSIUM CHLORIDE TABS 20 MEQ TABLET.ER (FP) PO ONE (15:36)
--- NOTE | 2019-09-28 15:42 | PN ---
Progress Note, Physician History of Present Illness: Pt seen and examined at bedside. She is awake and appears comfortable. - Current Medication List Current Medications: Active Medications Amlodipine Besylate (Norvasc -) 10 mg PO DAILY [facility] Benzocaine/Menthol (Cepacol Lozenge -) 1 each MM PRN PRN PRN Reason: SORE THROAT Chlorhexidine Gluconate (Hibiclens For Decolonization -) 1 applic TP HS [facility] Ceftriaxone Sodium 1 gm/ (Dextrose) 50 mls @ 100 mls/hr IVPB DAILY [facility]; Protocol Labetalol HCl (Normodyne -) 100 mg PO BID [facility] Lactobacillus Acidophilus (Bacid -) 1 tab PO TID [facility] Ondansetron HCl (Zofran Injection) 4 mg IVPUSH Q6H PRN PRN Reason: NAUSEA AND/OR VOMITING Oxycodone HCl (Roxicodone -) 10 mg PO Q4H PRN PRN Reason: PAIN LEVEL 6-10 Pantoprazole Sodium (Protonix Iv) 40 mg IVPUSH DAILY [facility] Potassium Chloride (K-Dur -) 40 meq PO ONCE ONE Stop: 09/28/19 15:37 - Objective Vital Signs: Vital Signs Temperature 98.4 F 09/28/19 06:00 Pulse Rate 79 09/28/19 08:00 Respiratory Rate 16 09/28/19 09:00 Blood Pressure 145/65 09/28/19 08:00 O2 Sat by Pulse Oximetry (%) 98 09/28/19 09:00 Constitutional: Yes: Calm Eyes: Yes: Conjunctiva Clear HENT: Yes: Atraumatic Neck: Yes: Supple Cardiovascular: Yes: S1, S2 Respiratory: Yes: CTA Bilaterally Gastrointestinal: Yes: Soft, Abdomen, Obese Genitourinary: Yes: WNL Edema: Yes Edema: LLE: Trace, RLE: Trace Neurological: Yes: Oriented Psychiatric: Yes: Oriented Labs: CBC, BMP 09/27/19 05:45 09/27/19 05:45 INR, PTT INR 1.69 (0.83-1.09) H 09/13/19 05:45 Problem List - Problems (1) PANCHO (acute kidney injury) Code(s): N17.9 - ACUTE KIDNEY FAILURE, UNSPECIFIED (2) Hypokalemia Code(s): E87.6 - HYPOKALEMIA (3) Wound infection after surgery Code(s): T81.49XA - INFECTION FOLLOWING A PROCEDURE, OTHER SURGICAL SITE, INIT (4) Hx of decompressive lumbar laminectomy Code(s): Z98.890 - OTHER SPECIFIED POSTPROCEDURAL STATES Assessment/Plan Current Medications Generic Name Dose Route Start Last Admin Trade Name Freq PRN Reason Stop Dose Admin Amlodipine Besylate 10 mg 09/29/19 10:00 Norvasc - PO DAILY [facility] Benzocaine/Menthol 1 each 09/28/19 10:32 Cepacol Lozenge - MM PRN PRN SORE THROAT Chlorhexidine Gluconate 1 applic 09/28/19 22:00 Hibiclens For Decolonization - TP HS [facility] Ceftriaxone Sodium 1 gm/ 50 mls @ 100 mls/hr 09/29/19 10:00 Dextrose IVPB DAILY [facility] Protocol Labetalol HCl 100 mg 09/28/19 22:00 Normodyne - PO BID [facility] Lactobacillus Acidophilus 1 tab 09/28/19 14:00 Bacid - PO TID [facility] Ondansetron HCl 4 mg 09/28/19 10:32 Zofran Injection IVPUSH Q6H PRN NAUSEA AND/OR VOMITING Oxycodone HCl 10 mg 09/28/19 10:32 Roxicodone - PO Q4H PRN PAIN LEVEL 6-10 Pantoprazole Sodium 40 mg 09/29/19 10:00 Protonix Iv IVPUSH DAILY [facility] 1. PANCHO likely ATN 2. Spine wound infection 3. Hyponatremia in setting of decreased renal function now improved 4. hypokalemia 5. nephrolithiasis 6. m-spike Plan - pt off of fluids - check bmp and mag - etiology of PANCHO likely atn - will need to monitor renal function as outpt - m-spike workup per hematology
--- NOTE | 2019-09-28 17:26 | PN ---
Progress Note, Physician History of Present Illness: Patient seen and examined at bedside. No complaints. s/p PICC right chest yesterday. She denies nausea vomiting fever chills chest pain or SOB. She states her appetite is not as good as it used to be. No labs to review today. Per patient Dr. Villa changed dressing 2 days ago and he is to change it next. - Current Medication List Current Medications: Active Medications Amlodipine Besylate (Norvasc -) 10 mg PO DAILY [facility] Benzocaine/Menthol (Cepacol Lozenge -) 1 each MM PRN PRN PRN Reason: SORE THROAT Chlorhexidine Gluconate (Hibiclens For Decolonization -) 1 applic TP HS [facility] Ceftriaxone Sodium 1 gm/ (Dextrose) 50 mls @ 100 mls/hr IVPB DAILY [facility]; Protocol Labetalol HCl (Normodyne -) 100 mg PO BID [facility] Lactobacillus Acidophilus (Bacid -) 1 tab PO TID [facility] Last Admin: 09/28/19 14:00 Dose: 1 tab Ondansetron HCl (Zofran Injection) 4 mg IVPUSH Q6H PRN PRN Reason: NAUSEA AND/OR VOMITING Oxycodone HCl (Roxicodone -) 10 mg PO Q4H PRN PRN Reason: PAIN LEVEL 6-10 Pantoprazole Sodium (Protonix Iv) 40 mg IVPUSH DAILY [facility] - Objective Vital Signs: Vital Signs Temperature 97.8 F 09/28/19 10:00 Pulse Rate 84 09/28/19 16:00 Respiratory Rate 18 09/28/19 16:00 Blood Pressure 156/80 09/28/19 16:00 O2 Sat by Pulse Oximetry (%) 98 09/28/19 10:00 Constitutional: Yes: No Distress, Obese HENT: Yes: Normocephalic Neck: Yes: Supple Cardiovascular: Yes: Regular Rate and Rhythm Respiratory: Yes: Other (right sided crackles otherwise CTA) Gastrointestinal: Yes: Soft, Abdomen, Obese. 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 s/p L1-S1 posterior decompression & T11-S1 instrumented fusion (08/26/2019) s/p multiple I&D and washout, debridement thoracolumbar spine continue rocephin M spike heme/onc: Dr. Finn on board PANCHO vs. PANCHO on CKD Cr 2.8 yesterday and essentially unchanged creatinine level tomorrow f/u nephrology HTN: Trend BP and consider starting antihypertensives F/E/N monitoring off IVF continue to follow lytes-hypokalemia repleted yesterday will repeat labs in AM regular diet PPX mechanical only per surgery- SCD/TEDs GI: protonix Dispo [facility] discharge on monday Visit type - Emergency Visit Emergency Visit: Yes ED Registration Date: 09/09/19 Care time: The patient presented to the Emergency Department on the above date and was hospitalized for further evaluation of their emergent condition. - New Patient This patient is new to me today: Yes Date on this admission: 09/28/19 - Critical Care Critical Care patient: No
[2019-09-28] MEDS ORDERED: LABETALOL HCL 100 MG TABLET (FP) PO SCH (22:00)
[2019-09-28] MEDS: CHLORHEXIDINE GLUCONATE 4% CLEANSER FOR DECOLONIZATION TP SCH (22:15)
[2019-09-29] MEDS: oxyCODONE HCL 5 MG TABLET PO PRN ×4 (00:18→21:33)
[2019-09-29] MEDS: LACTOBACILLUS ACIDOPHILUS 1 TABLET PO SCH ×3 (06:02→21:34)
[2019-09-29 06:57] LABS: ALBUMIN 2.1 g/dl (3.4-5.0); BILIRUBIN,TOTAL 0.5 mg/dL (0.2-1); BLOOD UREA NITROGEN 22.8 mg/dL (7-18); CALCIUM 8.5 mg/dL (8.5-10.1); CREATININE 2.6 mg/dL (0.55-1.3); MAGNESIUM 1.5 mg/dL (1.8-2.4); POTASSIUM 3.2 mmol/L (3.5-5.1); TOT PROT 5.2 g/dl (6.4-8.2)
--- NOTE | 2019-09-29 08:53 | PN ---
Progress Note, Physician History of Present Illness: patient stable no new issues - Current Medication List Current Medications: Active Medications Amlodipine Besylate (Norvasc -) 10 mg PO DAILY [facility] Benzocaine/Menthol (Cepacol Lozenge -) 1 each MM PRN PRN PRN Reason: SORE THROAT Chlorhexidine Gluconate (Hibiclens For Decolonization -) 1 applic TP HS [facility] Last Admin: 09/28/19 22:15 Dose: 1 applic Ceftriaxone Sodium 1 gm/ (Dextrose) 50 mls @ 100 mls/hr IVPB DAILY [facility]; Protocol Labetalol HCl (Normodyne -) 100 mg PO BID [facility] Last Admin: 09/28/19 22:14 Dose: 100 mg Lactobacillus Acidophilus (Bacid -) 1 tab PO TID [facility] Last Admin: 09/29/19 06:02 Dose: 1 tab Ondansetron HCl (Zofran Injection) 4 mg IVPUSH Q6H PRN PRN Reason: NAUSEA AND/OR VOMITING Oxycodone HCl (Roxicodone -) 10 mg PO Q4H PRN PRN Reason: PAIN LEVEL 6-10 Last Admin: 09/29/19 06:02 Dose: 10 mg Pantoprazole Sodium (Protonix Iv) 40 mg IVPUSH DAILY [facility] - Objective Vital Signs: Vital Signs Temperature 98.3 F 09/29/19 04:00 Pulse Rate 73 09/29/19 06:00 Respiratory Rate 11 09/29/19 06:00 Blood Pressure 152/65 09/29/19 06:00 O2 Sat by Pulse Oximetry (%) 98 09/28/19 22:40 Constitutional: Yes: No Distress, Calm, Obese Cardiovascular: Yes: S1, S2 Respiratory: Yes: Regular, CTA Bilaterally Gastrointestinal: Yes: Normal Bowel Sounds, Soft Musculoskeletal: Yes: WNL Extremities: Yes: WNL Wound/Incision: Yes: Clean/Dry Neurological: Yes: Alert, Oriented Psychiatric: Yes: Alert, Oriented Labs: CBC, BMP 09/27/19 05:45 09/29/19 05:44 INR, PTT INR 1.69 (0.83-1.09) H 09/13/19 05:45 Assessment/Plan Problem List - Problems (1) PANCHO (acute kidney injury) Code(s): N17.9 - ACUTE KIDNEY FAILURE, UNSPECIFIED (2) Wound infection after surgery Code(s): T81.49XA - INFECTION FOLLOWING A PROCEDURE, OTHER SURGICAL SITE, INIT (3) Hx of decompressive lumbar laminectomy Code(s): Z98.890 - OTHER SPECIFIED POSTPROCEDURAL STATES Assessment/Plan Thoraco-lumbar spine infection/abscess s/p I+D POD#4 PANCHO Anemia plan continue abx complete the course as advised
[2019-09-29] MEDS ORDERED: MAGNESIUM OXIDE 400 MG TABLET (FP) PO ONE (09:01)
--- NOTE | 2019-09-29 09:07 | PN ---
Progress Note, Physician History of Present Illness: Patient seen and examined at bedside. No complaints. She denies nausea vomiting fever chills chest pain or SOB. She states her appetite is better today. Per patient Dr. Villa to change dressing today. Hypokalemic and hypomagnesemic. - Current Medication List Current Medications: Active Medications Amlodipine Besylate (Norvasc -) 10 mg PO DAILY [facility] Benzocaine/Menthol (Cepacol Lozenge -) 1 each MM PRN PRN PRN Reason: SORE THROAT Chlorhexidine Gluconate (Hibiclens For Decolonization -) 1 applic TP HS [facility] Last Admin: 09/28/19 22:15 Dose: 1 applic Ceftriaxone Sodium 1 gm/ (Dextrose) 50 mls @ 100 mls/hr IVPB DAILY [facility]; Protocol Labetalol HCl (Normodyne -) 200 mg PO BID [facility] Lactobacillus Acidophilus (Bacid -) 1 tab PO TID [facility] Last Admin: 09/29/19 06:02 Dose: 1 tab Magnesium Oxide (Mag-Ox -) 800 mg PO ONCE ONE Stop: 09/29/19 09:02 Ondansetron HCl (Zofran Injection) 4 mg IVPUSH Q6H PRN PRN Reason: NAUSEA AND/OR VOMITING Oxycodone HCl (Roxicodone -) 10 mg PO Q4H PRN PRN Reason: PAIN LEVEL 6-10 Last Admin: 09/29/19 06:02 Dose: 10 mg Pantoprazole Sodium (Protonix Iv) 40 mg IVPUSH DAILY [facility] Potassium Chloride (K-Dur -) 40 meq PO BID [facility] Stop: 09/29/19 22:01 - Objective Vital Signs: Vital Signs Temperature 98.3 F 09/29/19 04:00 Pulse Rate 73 09/29/19 06:00 Respiratory Rate 11 09/29/19 06:00 Blood Pressure 152/65 09/29/19 06:00 O2 Sat by Pulse Oximetry (%) 98 09/28/19 22:40 PE: Constitutional: Yes: No Distress, Obese HENT: Yes: Normocephalic Neck: Yes: Supple Cardiovascular: Yes: Regular Rate and Rhythm Respiratory: Yes: Other (bilateral crackles at the bases right greater than left ) Gastrointestinal: Yes: Soft, Abdomen, Obese. No: Tenderness, Rebound Edema: Yes Edema: LLE: 1+ pitting edema, RLE: 1+ pitting edema Wound/Incision: Yes: Clean/Dry, Other (Dressing on back is dressed with coban/ guaze and no stain on dressing.) Labs: CBC, BMP 09/27/19 05:45 09/29/19 05:44 INR, PTT INR 1.69 (0.83-1.09) H 09/13/19 05:45 Impression/Plan Impression/Plan: 68 y/o F with no significant PMH who presents s/p L1-S1 posterior decompression & T11-S1 instrumented fusion (08/26/2019) now with wound infection s/p PICC for usp ceftriaxone waiting to be discharged to [facility] on Monday. s/p L1-S1 posterior decompression & T11-S1 instrumented fusion (08/26/2019) s/p multiple I&D and washout, debridement thoracolumbar spine continue rocephin for another [address] Tesfaye who I discussed this with at bedside today PANCHO vs. PANCHO on CKD Cr 2.6 today and slightly improved from 2 days ago continue to trend creatinine level f/u nephrology HTN: BP needs better control despite being started on Norvasc 10mg daily and labetelol 100mg po BID both of which were started yesterday. Will increase labetalol to 200mg po BID and trend BP switch to sodium controlled diet. Patient was eating korean food yesterday which may be why her pitting edema went from trace to 1+ counselled on the importance of low sodium diet normocytic Anemia: Hemoglobin stable Morbid obesity: BMI 38.5 counselled on importance of diet and exercise and patient states she is waiting to go to rehab to start F/E/N monitoring off IVF continue to follow lytes-hypokalemia 3.2 and hypomagnesemia 1.5 will replete both and recheck later today. RN aware of plan change regular diet to sodium controlled diet PPX mechanical only per surgery- SCD/TEDs GI: protonix Dispo likely/possible [facility] discharge tomorrow Visit type - Emergency Visit Emergency Visit: Yes ED Registration Date: 09/09/19 Care time: The patient presented to the Emergency Department on the above date and was hospitalized for further evaluation of their emergent condition. - New Patient This patient is new to me today: No - Critical Care Critical Care patient: No
[2019-09-29] MEDS ORDERED: POTASSIUM CHLORIDE TABS 20 MEQ TABLET.ER (FP) PO SCH (10:00)
[2019-09-29] MEDS ORDERED: cefTRIAXone SODIUM 1 GM VIAL ONE (10:18)
[2019-09-29] MEDS ORDERED: DEXTROSE 5%-WATER - 50 ML IVPB ONE (10:19)
[2019-09-29] MEDS: CEFTRIAXONE 1 GM in DEXTROSE 5%-WATER - 50 ML IVPB SCH (10:22)
[2019-09-29] MEDS: LABETALOL HCL 200 MG TABLET (FP) PO SCH ×2 (10:22→21:34)
[2019-09-29] MEDS: PANTOPRAZOLE SODIUM 40 MG VIAL IVPUSH SCH (10:22)
[2019-09-29] MEDS: amLODIPine BESYLATE 10 MG TABLET (FP) PO SCH (10:22)
[2019-09-29] MEDS: MAGNESIUM SULF 50% (8.12 MEQ/2 ML-1 GM VIAL) IVPB SCH ×2 (11:42→13:04)
[2019-09-29] MEDS: POTASSIUM CHLORIDE 20 MEQ PREMIX IVPB 100 ML IVPB SCH ×3 (14:00→17:08)
--- NOTE | 2019-09-29 17:57 | PN ---
Progress Note, Physician History of Present Illness: Pt seen and examined at bedside. She is awake and alert. She denies shortness of breath. - Current Medication List Current Medications: Active Medications Amlodipine Besylate (Norvasc -) 10 mg PO DAILY [facility] Last Admin: 09/29/19 10:22 Dose: 10 mg Benzocaine/Menthol (Cepacol Lozenge -) 1 each MM PRN PRN PRN Reason: SORE THROAT Chlorhexidine Gluconate (Hibiclens For Decolonization -) 1 applic TP HS [facility] Last Admin: 09/28/19 22:15 Dose: 1 applic Ceftriaxone Sodium 1 gm/ (Dextrose) 50 mls @ 100 mls/hr IVPB DAILY [facility]; Protocol Last Admin: 09/29/19 10:22 Dose: 100 mls/hr Labetalol HCl (Normodyne -) 200 mg PO BID [facility] Last Admin: 09/29/19 10:22 Dose: 200 mg Lactobacillus Acidophilus (Bacid -) 1 tab PO TID [facility] Last Admin: 09/29/19 14:44 Dose: 1 tab Ondansetron HCl (Zofran Injection) 4 mg IVPUSH Q6H PRN PRN Reason: NAUSEA AND/OR VOMITING Oxycodone HCl (Roxicodone -) 10 mg PO Q4H PRN PRN Reason: PAIN LEVEL 6-10 Last Admin: 09/29/19 14:41 Dose: 10 mg Pantoprazole Sodium (Protonix Iv) 40 mg IVPUSH DAILY [facility] Last Admin: 09/29/19 10:22 Dose: 40 mg - Objective Vital Signs: Vital Signs Temperature 98.2 F 09/29/19 10:00 Pulse Rate 87 09/29/19 12:00 Respiratory Rate 14 09/29/19 12:00 Blood Pressure 110/46 L 09/29/19 12:00 O2 Sat by Pulse Oximetry (%) 98 09/29/19 13:27 Constitutional: Yes: Calm Eyes: Yes: Conjunctiva Clear HENT: Yes: Atraumatic Cardiovascular: Yes: S1, S2 Respiratory: Yes: CTA Bilaterally Gastrointestinal: Yes: Soft, Abdomen, Obese Genitourinary: Yes: WNL Musculoskeletal: Yes: WNL Edema: Yes Edema: LLE: Trace, RLE: Trace Neurological: Yes: Oriented Psychiatric: Yes: Oriented Labs: CBC, BMP 09/27/19 05:45 09/29/19 05:44 INR, PTT INR 1.69 (0.83-1.09) H 09/13/19 05:45 Problem List - Problems (1) PANCHO (acute kidney injury) Code(s): N17.9 - ACUTE KIDNEY FAILURE, UNSPECIFIED (2) Hypokalemia Code(s): E87.6 - HYPOKALEMIA (3) Wound infection after surgery Code(s): T81.49XA - INFECTION FOLLOWING A PROCEDURE, OTHER SURGICAL SITE, INIT (4) Hx of decompressive lumbar laminectomy Code(s): Z98.890 - OTHER SPECIFIED POSTPROCEDURAL STATES Assessment/Plan Current Medications Generic Name Dose Route Start Last Admin Trade Name Freq PRN Reason Stop Dose Admin Amlodipine Besylate 10 mg 09/29/19 10:00 09/29/19 10:22 Norvasc - PO 10 mg DAILY [facility] Administration Benzocaine/Menthol 1 each 09/28/19 10:32 Cepacol Lozenge - MM PRN PRN SORE THROAT Chlorhexidine Gluconate 1 applic 09/28/19 22:00 09/28/19 22:15 Hibiclens For Decolonization - TP 1 applic HS [facility] Administration Ceftriaxone Sodium 1 gm/ 50 mls @ 100 mls/hr 09/29/19 10:00 09/29/19 10:22 Dextrose IVPB 100 mls/hr DAILY [facility] Administration Protocol Labetalol HCl 200 mg 09/29/19 09:03 09/29/19 10:22 Normodyne - PO 200 mg BID [facility] Administration Lactobacillus Acidophilus 1 tab 09/28/19 14:00 09/29/19 14:44 Bacid - PO 1 tab TID [facility] Administration Ondansetron HCl 4 mg 09/28/19 10:32 Zofran Injection IVPUSH Q6H PRN NAUSEA AND/OR VOMITING Oxycodone HCl 10 mg 09/28/19 10:32 09/29/19 14:41 Roxicodone - PO 10 mg Q4H PRN Administration PAIN LEVEL 6-10 Pantoprazole Sodium 40 mg 09/29/19 10:00 09/29/19 10:22 Protonix Iv IVPUSH 40 mg DAILY [facility] Administration 1. PANCHO likely ATN 2. Spine wound infection 3. Hyponatremia in setting of decreased renal function now improved 4. hypokalemia 5. nephrolithiasis 6. m-spike Plan - replace potassium - renal function continues to improve - repeat labs in am - etiology of PANCHO likely atn - will need to monitor renal function as outpt - m-spike workup per hematology
[2019-09-29 20:14] LABS: MAGNESIUM 2.4 mg/dL (1.8-2.4)
[2019-09-29] MEDS: CHLORHEXIDINE GLUCONATE 4% CLEANSER FOR DECOLONIZATION TP SCH (21:34)
[2019-09-30] MEDS: LACTOBACILLUS ACIDOPHILUS 1 TABLET PO SCH ×3 (05:27→21:04)
[2019-09-30] MEDS: oxyCODONE HCL 5 MG TABLET PO PRN ×4 (05:27→21:35)
[2019-09-30 08:01] LABS: BLOOD UREA NITROGEN 22.8 mg/dL (7-18); CALCIUM 8.6 mg/dL (8.5-10.1); CREATININE 2.4 mg/dL (0.55-1.3); MAGNESIUM 2.2 mg/dL (1.8-2.4); POTASSIUM 3.9 mmol/L (3.5-5.1)
[2019-09-30] MEDS ORDERED: DEXTROSE 5%-WATER - 50 ML IVPB ONE (08:55)
[2019-09-30] MEDS ORDERED: cefTRIAXone SODIUM 1 GM VIAL ONE (08:55)
[2019-09-30] MEDS: amLODIPine BESYLATE 10 MG TABLET (FP) PO SCH (09:54)
[2019-09-30] MEDS: CEFTRIAXONE 1 GM in DEXTROSE 5%-WATER - 50 ML IVPB SCH (09:54)
[2019-09-30] MEDS: PANTOPRAZOLE SODIUM 40 MG VIAL IVPUSH SCH (09:54)
[2019-09-30] MEDS: LABETALOL HCL 200 MG TABLET (FP) PO SCH ×2 (09:55→21:05)
--- NOTE | 2019-09-30 11:23 | PN ---
Progress Note (short form) - Note Progress Note: Hospitalist Medicine Lino, in good spirits. getting ready to work w/ PT. awaiting bed at [facility] . Has +R chest PICC ; c/w abx for another [address] [facility] [address] Cruz at [phone] completed 10 day tx c. diff (ag +, toxin -), OK for return Vitals 09/30/19 10:00 Temperature 98.3 F Pulse Rate 73 Respiratory 18 Rate Blood Pressure 134/72 Physical Exam GENERAL: resting in bed, in NAD. HEENT: NCAT, moist MM NECK: Trachea midline, full range of motion, supple. CHEST: +R chest picc LUNGS: CTA b/l. no accessory m usage HEART: S1, S2 RRR. no r/m/g BACK: limited ROM ABDOMEN: soft, nontender , nondistended EXTREMITIES: no pedal edema. 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 however able to move UE, LE Laboratory Tests 09/30/19 06:25 Sodium 143 Potassium 3.9 Chloride 111 H Carbon Dioxide 21 Anion Gap 10 BUN 22.8 H Creatinine 2.4 H Est GFR (CKD-EPI)AfAm 22.94 Microbiology 09/16/19 16:13 Back Gram Stain - Final 09/16/19 16:13 Back Wound Culture - Final NO AEROBIC OR ANAEROBIC GROWTH OBTAINED. 09/16/19 01:30 Stool Gram Stain - Final 09/16/19 01:30 Stool Clostridioides difficile Antigen - Final 09/16/19 01:30 Stool Clostridioides difficile Toxin Assay - Final 09/14/19 10:27 Back Gram Stain - Final 09/14/19 10:27 Back Wound Culture - Final NO AEROBIC OR ANAEROBIC GROWTH OBTAINED. 09/14/19 10:26 Back Gram Stain - Final 09/14/19 10:26 Back Wound Culture - Final NO AEROBIC OR ANAEROBIC GROWTH OBTAINED. 09/14/19 10:24 Back Gram Stain - Final 09/14/19 10:24 Back Wound Culture - Final NO AEROBIC OR ANAEROBIC GROWTH OBTAINED. 09/12/19 15:28 Blood - Peripheral Venous Blood Culture - Final NO GROWTH AFTER 5 DAYS INCUBATION 09/12/19 15:20 Blood - Peripheral Venous Blood Culture - Final NO GROWTH AFTER 5 DAYS INCUBATION 09/09/19 16:30 Back Gram Stain - Final 09/09/19 16:30 Back Wound Culture - Final Escherichia Coli Bacteroides Fragilis Campylobacter Gracilis 09/09/19 14:53 Urine - Urine - Catheterized Urine Culture - Final NO GROWTH OBTAINED Imaging 09/09/19: CXR: s/p anterior cervical fusion. ortho hardware in the lower thoracic, upper lumbosacral spine. cardiomegaly. uncoiled thoracic aorta. no evidence of pneumothorax or large pl effusion. no evidence of pulm edema. linear opacities are noted in the right mid lung zone atelectatic changes. 09/15/19: Renal sono: nonobstructing R renal calculus 1.1cm echogenic focus lower pole R kidney 09/15/19: Abd sono: fatty infiltration of enlarged liver, cholelithiasis, nonobstructing R renal calculus, R renal cyst 09/27/19: R chest wall picc placement Assessment/Plan 68 y/o F with no significant PMH who presents s/p L1-S1 posterior decompression & T11-S1 instrumented fusion (08/26/2019) now p/w wound infection. #s/p L1-S1 posterior decompression & T11-S1 instrumented fusion (08/26/2019) -s/p multiple I&D, most recent repeat washout, debridement thoracolumbar spine -d/c zosyn. started on rocephin (09/18). w/ R chest wall PICC, for 19 days more of abx -recent cx (-) -incentive spirometer -pain control: danilo PRN per sx -ID: Dr. Tesfaye -Sx: Dr. Villa #HTN -better controlled -on labetalol 200mg BID #M spike -differentials - MGUS, MM, but likely 2/2 infection, inflammation -repeat when clinically stable -elevated K,L. protein w/u - in process -heme/onc: Dr. Finn #PANCHO vs. PANCHO on CKD - improving -monitoring off IVF . gradual improvement -Fena 1.4% intrinsic likely ATN -c/t monitor -nephro: Dr. Loo #R/o c. diff -with c. diff ag (+) however toxin (-) -completed 10 day course of vanc 125mg PO q6h prophylactically -ID: Dr. Tesfaye #F/E/N monitoring off IVF continue to follow lytes regular diet #PPX mechanical only- SCD/TEDs GI: protonix #Dispo ICU monitoring PICC is in place; awaiting bed placement at [facility] order is in
--- NOTE | 2019-09-30 11:34 | PN ---
Progress Note, Physician History of Present Illness: Pt seen and examined at bedside. She is awake and appears comfortable. - Current Medication List Current Medications: Active Medications Amlodipine Besylate (Norvasc -) 10 mg PO DAILY [facility] Last Admin: 09/30/19 09:54 Dose: 10 mg Benzocaine/Menthol (Cepacol Lozenge -) 1 each MM PRN PRN PRN Reason: SORE THROAT Chlorhexidine Gluconate (Hibiclens For Decolonization -) 1 applic TP HS [facility] Last Admin: 09/29/19 21:34 Dose: 1 applic Ceftriaxone Sodium 1 gm/ (Dextrose) 50 mls @ 100 mls/hr IVPB DAILY [facility]; Protocol Last Admin: 09/30/19 09:54 Dose: 100 mls/hr Labetalol HCl (Normodyne -) 200 mg PO BID [facility] Last Admin: 09/30/19 09:55 Dose: 200 mg Lactobacillus Acidophilus (Bacid -) 1 tab PO TID [facility] Last Admin: 09/30/19 05:27 Dose: 1 tab Ondansetron HCl (Zofran Injection) 4 mg IVPUSH Q6H PRN PRN Reason: NAUSEA AND/OR VOMITING Oxycodone HCl (Roxicodone -) 10 mg PO Q4H PRN PRN Reason: PAIN LEVEL 6-10 Last Admin: 09/30/19 10:26 Dose: 10 mg Pantoprazole Sodium (Protonix Iv) 40 mg IVPUSH DAILY [facility] Last Admin: 09/30/19 09:54 Dose: 40 mg - Objective Vital Signs: Vital Signs Temperature 98.3 F 09/30/19 10:00 Pulse Rate 73 09/30/19 10:00 Respiratory Rate 18 09/30/19 10:00 Blood Pressure 134/72 09/30/19 10:00 O2 Sat by Pulse Oximetry (%) 98 09/30/19 08:40 Constitutional: Yes: Calm Eyes: Yes: Conjunctiva Clear HENT: Yes: Atraumatic Neck: Yes: Supple Cardiovascular: Yes: S1, S2 Respiratory: Yes: CTA Bilaterally Gastrointestinal: Yes: Normal Bowel Sounds, Soft Genitourinary: Yes: WNL Musculoskeletal: Yes: WNL Extremities: Yes: WNL Edema: Yes Edema: LLE: Trace, RLE: Trace Neurological: Yes: Oriented Psychiatric: Yes: Oriented Labs: CBC, BMP 09/27/19 05:45 09/30/19 06:25 INR, PTT INR 1.69 (0.83-1.09) H 09/13/19 05:45 Problem List - Problems (1) PANCHO (acute kidney injury) Code(s): N17.9 - ACUTE KIDNEY FAILURE, UNSPECIFIED (2) Hypokalemia Code(s): E87.6 - HYPOKALEMIA (3) Wound infection after surgery Code(s): T81.49XA - INFECTION FOLLOWING A PROCEDURE, OTHER SURGICAL SITE, INIT (4) Hx of decompressive lumbar laminectomy Code(s): Z98.890 - OTHER SPECIFIED POSTPROCEDURAL STATES Assessment/Plan Current Medications Generic Name Dose Route Start Last Admin Trade Name Freq PRN Reason Stop Dose Admin Amlodipine Besylate 10 mg 09/29/19 10:00 09/30/19 09:54 Norvasc - PO 10 mg DAILY [facility] Administration Benzocaine/Menthol 1 each 09/28/19 10:32 Cepacol Lozenge - MM PRN PRN SORE THROAT Chlorhexidine Gluconate 1 applic 09/28/19 22:00 09/29/19 21:34 Hibiclens For Decolonization - TP 1 applic HS [facility] Administration Ceftriaxone Sodium 1 gm/ 50 mls @ 100 mls/hr 09/29/19 10:00 09/30/19 09:54 Dextrose IVPB 100 mls/hr DAILY [facility] Administration Protocol Labetalol HCl 200 mg 09/29/19 09:03 09/30/19 09:55 Normodyne - PO 200 mg BID [facility] Administration Lactobacillus Acidophilus 1 tab 09/28/19 14:00 09/30/19 05:27 Bacid - PO 1 tab TID [facility] Administration Ondansetron HCl 4 mg 09/28/19 10:32 Zofran Injection IVPUSH Q6H PRN NAUSEA AND/OR VOMITING Oxycodone HCl 10 mg 09/28/19 10:32 09/30/19 10:26 Roxicodone - PO 10 mg Q4H PRN Administration PAIN LEVEL 6-10 Pantoprazole Sodium 40 mg 09/29/19 10:00 09/30/19 09:54 Protonix Iv IVPUSH 40 mg DAILY [facility] Administration 1. PANCHO likely ATN 2. Spine wound infection 3. Hyponatremia in setting of decreased renal function now improved 4. hypokalemia 5. nephrolithiasis 6. 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
--- NOTE | 2019-09-30 11:44 | PN ---
Progress Note, Physician History of Present Illness: stable no new issues - Current Medication List Current Medications: Active Medications Amlodipine Besylate (Norvasc -) 10 mg PO DAILY [facility] Last Admin: 09/30/19 09:54 Dose: 10 mg Benzocaine/Menthol (Cepacol Lozenge -) 1 each MM PRN PRN PRN Reason: SORE THROAT Chlorhexidine Gluconate (Hibiclens For Decolonization -) 1 applic TP HS [facility] Last Admin: 09/29/19 21:34 Dose: 1 applic Ceftriaxone Sodium 1 gm/ (Dextrose) 50 mls @ 100 mls/hr IVPB DAILY [facility]; Protocol Last Admin: 09/30/19 09:54 Dose: 100 mls/hr Labetalol HCl (Normodyne -) 200 mg PO BID [facility] Last Admin: 09/30/19 09:55 Dose: 200 mg Lactobacillus Acidophilus (Bacid -) 1 tab PO TID [facility] Last Admin: 09/30/19 05:27 Dose: 1 tab Ondansetron HCl (Zofran Injection) 4 mg IVPUSH Q6H PRN PRN Reason: NAUSEA AND/OR VOMITING Oxycodone HCl (Roxicodone -) 10 mg PO Q4H PRN PRN Reason: PAIN LEVEL 6-10 Last Admin: 09/30/19 10:26 Dose: 10 mg Pantoprazole Sodium (Protonix Iv) 40 mg IVPUSH DAILY [facility] Last Admin: 09/30/19 09:54 Dose: 40 mg - Objective Vital Signs: Vital Signs Temperature 98.3 F 09/30/19 10:00 Pulse Rate 73 09/30/19 10:00 Respiratory Rate 18 09/30/19 10:00 Blood Pressure 134/72 09/30/19 10:00 O2 Sat by Pulse Oximetry (%) 98 09/30/19 08:40 Constitutional: Yes: No Distress, Calm Cardiovascular: Yes: S1, S2 Respiratory: Yes: Regular, CTA Bilaterally Gastrointestinal: Yes: Normal Bowel Sounds, Soft Musculoskeletal: Yes: WNL Extremities: Yes: WNL Neurological: Yes: Alert, Oriented Psychiatric: Yes: Alert, Oriented Labs: CBC, BMP 09/27/19 05:45 09/30/19 06:25 INR, PTT INR 1.69 (0.83-1.09) H 09/13/19 05:45 Assessment/Plan Problem List - Problems (1) PANCHO (acute kidney injury) Code(s): N17.9 - ACUTE KIDNEY FAILURE, UNSPECIFIED (2) Wound infection after surgery Code(s): T81.49XA - INFECTION FOLLOWING A PROCEDURE, OTHER SURGICAL SITE, INIT (3) Hx of decompressive lumbar laminectomy Code(s): Z98.890 - OTHER SPECIFIED POSTPROCEDURAL STATES Assessment/Plan Thoraco-lumbar spine infection/abscess s/p I+D POD#4 PANCHO Anemia plan continue abx complete the course as advised
[2019-09-30] MEDS: CHLORHEXIDINE GLUCONATE 4% CLEANSER FOR DECOLONIZATION TP SCH (21:05)
--- NOTE | 2019-09-30 23:58 | PN ---
Progress Note (short form) - Note Progress Note: Patient seen and examined 09/30/2017 at 4pm: 68F s/p L1-S1 posterior decompression & T11-S1 instrumented fusion (08/26/2019) p/w 400cc epidural abscess (09/09/2019) now s/p I&D posterior thoracolumbar spine w/delayed primary closure POD #12. Pain well controlled. Pt. dropped to floor by PT team today - lack of manpower to lift patient. Pt. denies overnight history of headaches, chest pain, shortness of breath, nausea, vomiting, chills, & sweats. (+) Voiding; (+) Flatus; (+) BM. Pt. ambulated in hallway today and sat in chair x 1.5 hours. All labs and vitals reviewed. PE: AAO x 3, NAD. T/L-Spine: Dressing C/D/I. B/L LE NV status at baseline. 68F s/p L1-S1 posterior decompression & T11-S1 instrumented fusion (08/26/2019) p/w 400cc epidural abscess (09/09/2019) now s/p I&D posterior thoracolumbar spine w/delayed primary closure POD #12. -Pain medication: oral meds; NO NSAID's. -IV antibiotics as per ID team (Ceftriaxone 1g IV qd x 4 more weeks) -Nursing Care: -Offload heals with rolled towels under ankles to avoid heel ulcers/pressure sores. -Log roll q2h/place on wedge pillows to avoid sacral decubitus ulcer formation. -Attentive perineal hygiene. -PT/OT/Rehab: -No heavy lifting (>5 lbs), bending or twisting x 6 months post op. -WBAT B/L LE. -Out of bed and ambulating with assistance. -Patient has been bedbound for weeks; all lower extremity joints are stiff and lower extremity musculature has atrophied & weakened. -Mobilize bed to chair with physical therapy team at least BID with ambulation/gait training as well. -Patient is to flex & extend ankles, knees, and hips throughout the day - especially when not working with physical therapy team. -f/u daily labs. -DVT PPx: -Mechanical only: VLADISLAV's, SCD's. -Incentive spirometry q5-10 min. -Care per ICU, ID, renal, hematology & medical hospitalist teams. -Discharge planning: plan to d/c back to [facility]. -Will follow. Eliezer Villa MD (Orthopaedic Surgery).
[2019-10-01] MEDS: oxyCODONE HCL 5 MG TABLET PO PRN ×4 (03:51→21:13)
[2019-10-01] MEDS: LACTOBACILLUS ACIDOPHILUS 1 TABLET PO SCH ×3 (05:43→21:13)
[2019-10-01 08:09] LABS: BLOOD UREA NITROGEN 23.1 mg/dL (7-18); CALCIUM 8.7 mg/dL (8.5-10.1); CREATININE 2.5 mg/dL (0.55-1.3); MAGNESIUM 2.1 mg/dL (1.8-2.4); PHOSPHOROUS 3.9 mg/dL (2.5-4.9)
[2019-10-01] MEDS ORDERED: cefTRIAXone SODIUM 1 GM VIAL ONE (10:07)
[2019-10-01] MEDS ORDERED: DEXTROSE 5%-WATER - 50 ML IVPB ONE (10:07)
[2019-10-01] MEDS: CEFTRIAXONE 1 GM in DEXTROSE 5%-WATER - 50 ML IVPB SCH (10:19)
[2019-10-01] MEDS: PANTOPRAZOLE SODIUM 40 MG VIAL IVPUSH SCH (10:21)
[2019-10-01] MEDS: LABETALOL HCL 200 MG TABLET (FP) PO SCH ×2 (10:22→21:13)
[2019-10-01] MEDS: amLODIPine BESYLATE 10 MG TABLET (FP) PO SCH (10:22)
--- NOTE | 2019-10-01 11:21 | PN ---
Progress Note (short form) - Note Progress Note: Hospitalist Medicine Resting in bed. awaiting bed at [place] . Has +R chest PICC ; c/w abx for another 18 days [place] physician is Dr. Cruz at [phone] completed 10 day tx c. diff (ag +, toxin -), OK for return. new paperwork sent per Vitals 10/01/19 06:00 Temperature 97.9 F Pulse Rate 77 Respiratory 18 Rate Blood Pressure 109/72 Physical Exam GENERAL: resting in bed, in NAD. HEENT: NCAT, moist MM NECK: Trachea midline, full range of motion, supple. CHEST: +R chest picc LUNGS: CTA b/l. no accessory m usage HEART: S1, S2 RRR. no r/m/g BACK: limited ROM ABDOMEN: soft, nontender , nondistended EXTREMITIES: no pedal edema. 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 however able to move UE, LE Laboratory Tests 10/01/19 06:30 Sodium 142 Potassium 4.0 Chloride 111 H Carbon Dioxide 22 BUN 23.1 H Creatinine 2.5 H Random Glucose 69 L Microbiology 09/16/19 16:13 Back Gram Stain - Final 09/16/19 16:13 Back Wound Culture - Final NO AEROBIC OR ANAEROBIC GROWTH OBTAINED. 09/16/19 01:30 Stool Gram Stain - Final 09/16/19 01:30 Stool Clostridioides difficile Antigen - Final 09/16/19 01:30 Stool Clostridioides difficile Toxin Assay - Final 09/14/19 10:27 Back Gram Stain - Final 09/14/19 10:27 Back Wound Culture - Final NO AEROBIC OR ANAEROBIC GROWTH OBTAINED. 09/14/19 10:26 Back Gram Stain - Final 09/14/19 10:26 Back Wound Culture - Final NO AEROBIC OR ANAEROBIC GROWTH OBTAINED. 09/14/19 10:24 Back Gram Stain - Final 09/14/19 10:24 Back Wound Culture - Final NO AEROBIC OR ANAEROBIC GROWTH OBTAINED. 09/12/19 15:28 Blood - Peripheral Venous Blood Culture - Final NO GROWTH AFTER 5 DAYS INCUBATION 09/12/19 15:20 Blood - Peripheral Venous Blood Culture - Final NO GROWTH AFTER 5 DAYS INCUBATION 09/09/19 16:30 Back Gram Stain - Final 09/09/19 16:30 Back Wound Culture - Final Escherichia Coli Bacteroides Fragilis Campylobacter Gracilis 09/09/19 14:53 Urine - Urine - Catheterized Urine Culture - Final NO GROWTH OBTAINED Imaging 09/09/19: CXR: s/p anterior cervical fusion. ortho hardware in the lower thoracic, upper lumbosacral spine. cardiomegaly. uncoiled thoracic aorta. no evidence of pneumothorax or large pl effusion. no evidence of pulm edema. linear opacities are noted in the right mid lung zone atelectatic changes. 09/15/19: Renal sono: nonobstructing R renal calculus 1.1cm echogenic focus lower pole R kidney 09/15/19: Abd sono: fatty infiltration of enlarged liver, cholelithiasis, nonobstructing R renal calculus, R renal cyst 09/27/19: R chest wall picc placement Assessment/Plan 68 y/o F with no significant PMH who presents s/p L1-S1 posterior decompression & T11-S1 instrumented fusion (08/26/2019) now p/w wound infection. #s/p L1-S1 posterior decompression & T11-S1 instrumented fusion (08/26/2019) -s/p multiple I&D, most recent repeat washout, debridement thoracolumbar spine -d/c zosyn. started on rocephin (09/18). w/ R chest wall PICC, for 18 days more of abx -recent cx (-) -incentive spirometer -pain control: danilo PRN per sx -ID: Dr. Tesfaye -Sx: Dr. Villa #HTN -better controlled -on labetalol 200mg BID #M spike -differentials - MGUS, MM, but likely 2/2 infection, inflammation -repeat when clinically stable -elevated K,L. protein w/u - in process -heme/onc: Dr. Finn #PANCHO vs. PANCHO on CKD - improving -monitoring off IVF . gradual improvement -Fena 1.4% intrinsic likely ATN -c/t monitor -nephro: Dr. Loo #R/o c. diff -with c. diff ag (+) however toxin (-) -completed 10 day course of vanc 125mg PO q6h prophylactically -OK for return to facility. new paperwork faxed per SW -ID: Dr. Tesfaye #F/E/N monitoring off IVF continue to follow lytes regular diet #PPX mechanical only- SCD/TEDs GI: protonix #Dispo ICU monitoring PICC is in place; awaiting bed placement at [facility] order is in <Soha Reilly - Last Filed: 10/01/19 11:19> - Note Progress Note: Seen and examined; please see resident note for further historical information. I personally verified all yang historical information and exam findings. Personally interpreted all imaging and diagnostics and reviewed appropriate consults. I reviewed all labs and vital signs as per resident note and EMR as documented. I agree with the above assessment and plan unless supplemented by myself in the following. Hypoglycemic overnight 60, asymptomatic and refused fingerstick this morning. Eating, has had no prior issues with this. Due to patient preference will defer further work-up. It was documented that I was contacted regarding a patient fall last night which is technically true as a message was sent to me, though I was not working and had no means to know I was contacted. No issues from fall per patient. 10 sys ROS done and negative aside from HPI VS, labs, imaging reviewed NAD, AAO, resting comfortably in bed. RRR s1/2 no mgr Normal muscle tone, moves all 5 extremities with normal apparent strength Neck is supple, trachea midline, no sher LN Lungs CTAB with sym expansion NT ND +BS no sher organomegaly CN2-12 wnl; no FND NC AT EOMI PERRLA Normal mood, appropriate behavior, euthymic affect No skin breakdown or rashes noted; postoperative site with bandage clean dry and intact Assessment and plan: <Christopher Goodwin - Last Filed: 10/01/19 16:22>
--- NOTE | 2019-10-01 12:16 | PN ---
Progress Note, Physician History of Present Illness: Pt seen and examined at bedside. She is awake and alert. She denies shortness of breath. - Current Medication List Current Medications: Active Medications Amlodipine Besylate (Norvasc -) 10 mg PO DAILY [facility] Last Admin: 10/01/19 10:22 Dose: 10 mg Benzocaine/Menthol (Cepacol Lozenge -) 1 each MM PRN PRN PRN Reason: SORE THROAT Chlorhexidine Gluconate (Hibiclens For Decolonization -) 1 applic TP HS [facility] Last Admin: 09/30/19 21:05 Dose: 1 applic Ceftriaxone Sodium 1 gm/ (Dextrose) 50 mls @ 100 mls/hr IVPB DAILY [facility]; Protocol Last Admin: 10/01/19 10:19 Dose: 100 mls/hr Labetalol HCl (Normodyne -) 200 mg PO BID [facility] Last Admin: 10/01/19 10:22 Dose: 200 mg Lactobacillus Acidophilus (Bacid -) 1 tab PO TID [facility] Last Admin: 10/01/19 05:43 Dose: 1 tab Ondansetron HCl (Zofran Injection) 4 mg IVPUSH Q6H PRN PRN Reason: NAUSEA AND/OR VOMITING Oxycodone HCl (Roxicodone -) 10 mg PO Q4H PRN PRN Reason: PAIN LEVEL 6-10 Last Admin: 10/01/19 08:48 Dose: 10 mg Pantoprazole Sodium (Protonix Iv) 40 mg IVPUSH DAILY [facility] Last Admin: 10/01/19 10:21 Dose: 40 mg - Objective Vital Signs: Vital Signs Temperature 97.9 F 10/01/19 06:00 Pulse Rate 77 10/01/19 06:00 Respiratory Rate 18 10/01/19 06:00 Blood Pressure 109/72 10/01/19 06:00 O2 Sat by Pulse Oximetry (%) 98 09/30/19 21:00 Constitutional: Yes: Calm Eyes: Yes: Conjunctiva Clear HENT: Yes: Atraumatic Cardiovascular: Yes: S1, S2 Respiratory: Yes: CTA Bilaterally Gastrointestinal: Yes: Soft Genitourinary: Yes: WNL Edema: Yes Edema: LLE: Trace, RLE: Trace Neurological: Yes: Oriented Psychiatric: Yes: Oriented Labs: CBC, BMP 09/27/19 05:45 10/01/19 06:30 INR, PTT INR 1.69 (0.83-1.09) H 09/13/19 05:45 Problem List - Problems (1) PANCHO (acute kidney injury) Code(s): N17.9 - ACUTE KIDNEY FAILURE, UNSPECIFIED (2) Hypokalemia Code(s): E87.6 - HYPOKALEMIA (3) Wound infection after surgery Code(s): T81.49XA - INFECTION FOLLOWING A PROCEDURE, OTHER SURGICAL SITE, INIT (4) Hx of decompressive lumbar laminectomy Code(s): Z98.890 - OTHER SPECIFIED POSTPROCEDURAL STATES Assessment/Plan Current Medications Generic Name Dose Route Start Last Admin Trade Name Freq PRN Reason Stop Dose Admin Amlodipine Besylate 10 mg 09/29/19 10:00 10/01/19 10:22 Norvasc - PO 10 mg DAILY [facility] Administration Benzocaine/Menthol 1 each 09/28/19 10:32 Cepacol Lozenge - MM PRN PRN SORE THROAT Chlorhexidine Gluconate 1 applic 09/28/19 22:00 09/30/19 21:05 Hibiclens For Decolonization - TP 1 applic HS [facility] Administration Ceftriaxone Sodium 1 gm/ 50 mls @ 100 mls/hr 09/29/19 10:00 10/01/19 10:19 Dextrose IVPB 100 mls/hr DAILY [facility] Administration Protocol Labetalol HCl 200 mg 09/29/19 09:03 10/01/19 10:22 Normodyne - PO 200 mg BID [facility] Administration Lactobacillus Acidophilus 1 tab 09/28/19 14:00 10/01/19 05:43 Bacid - PO 1 tab TID [facility] Administration Ondansetron HCl 4 mg 09/28/19 10:32 Zofran Injection IVPUSH Q6H PRN NAUSEA AND/OR VOMITING Oxycodone HCl 10 mg 09/28/19 10:32 10/01/19 08:48 Roxicodone - PO 10 mg Q4H PRN Administration PAIN LEVEL 6-10 Pantoprazole Sodium 40 mg 09/29/19 10:00 10/01/19 10:21 Protonix Iv IVPUSH 40 mg DAILY [facility] Administration 1. PANCHO likely ATN 2. Spine wound infection 3. Hyponatremia in setting of decreased renal function now improved 4. hypokalemia 5. nephrolithiasis 6. m-spike Plan - cont to monitor renal function - etiology of PANCHO likely atn - will need to monitor renal function as outpt - oncology follow up for m-spike as outpt as well - avoid nsaids
--- NOTE | 2019-10-01 18:11 | PN ---
Progress Note, Physician History of Present Illness: Pt is doing well. No distress, without pain. Diarrhea resolved. Remains afebrile. - Current Medication List Current Medications: Active Medications Amlodipine Besylate (Norvasc -) 10 mg PO DAILY [facility] Last Admin: 10/01/19 10:22 Dose: 10 mg Benzocaine/Menthol (Cepacol Lozenge -) 1 each MM PRN PRN PRN Reason: SORE THROAT Chlorhexidine Gluconate (Hibiclens For Decolonization -) 1 applic TP HS [facility] Last Admin: 09/30/19 21:05 Dose: 1 applic Ceftriaxone Sodium 1 gm/ (Dextrose) 50 mls @ 100 mls/hr IVPB DAILY [facility]; Protocol Last Admin: 10/01/19 10:19 Dose: 100 mls/hr Labetalol HCl (Normodyne -) 200 mg PO BID [facility] Last Admin: 10/01/19 10:22 Dose: 200 mg Lactobacillus Acidophilus (Bacid -) 1 tab PO TID [facility] Last Admin: 10/01/19 14:19 Dose: 1 tab Ondansetron HCl (Zofran Injection) 4 mg IVPUSH Q6H PRN PRN Reason: NAUSEA AND/OR VOMITING Oxycodone HCl (Roxicodone -) 10 mg PO Q4H PRN PRN Reason: PAIN LEVEL 6-10 Last Admin: 10/01/19 16:00 Dose: 10 mg Pantoprazole Sodium (Protonix Iv) 40 mg IVPUSH DAILY [facility] Last Admin: 10/01/19 10:21 Dose: 40 mg - Objective Vital Signs: Vital Signs Temperature 98 F 10/01/19 14:00 Pulse Rate 69 10/01/19 14:00 Respiratory Rate 13 10/01/19 14:00 Blood Pressure 119/66 10/01/19 14:00 O2 Sat by Pulse Oximetry (%) 98 10/01/19 09:00 Constitutional: Yes: No Distress, Calm Eyes: Yes: Conjunctiva Clear Cardiovascular: Yes: Regular Rate and Rhythm Respiratory: Yes: Regular Gastrointestinal: Yes: Normal Bowel Sounds, Soft Genitourinary: Yes: WNL Extremities: Yes: WNL Integumentary: Yes: WNL Neurological: Yes: Alert, Oriented Labs: CBC, BMP 09/27/19 05:45 10/01/19 06:30 INR, PTT INR 1.69 (0.83-1.09) H 09/13/19 05:45 Microbiology 09/16/19 16:13 Back Gram Stain - Final 09/16/19 16:13 Back Wound Culture - Final NO AEROBIC OR ANAEROBIC GROWTH OBTAINED. 09/12/19 15:20 Blood - Peripheral Venous Blood Culture - Final NO GROWTH AFTER 5 DAYS INCUBATION 09/12/19 15:28 Blood - Peripheral Venous Blood Culture - Final NO GROWTH AFTER 5 DAYS INCUBATION 09/09/19 16:30 Back Gram Stain - Final 09/09/19 16:30 Back Wound Culture - Final Escherichia Coli Bacteroides Fragilis Campylobacter Gracilis 09/16/19 01:30 Stool Gram Stain - Final 09/16/19 01:30 Stool Clostridioides difficile Antigen - Final 09/16/19 01:30 Stool Clostridioides difficile Toxin Assay - Final 09/14/19 10:27 Back Gram Stain - Final 09/14/19 10:27 Back Wound Culture - Final NO AEROBIC OR ANAEROBIC GROWTH OBTAINED. 09/14/19 10:24 Back Gram Stain - Final 09/14/19 10:24 Back Wound Culture - Final NO AEROBIC OR ANAEROBIC GROWTH OBTAINED. 09/14/19 10:26 Back Gram Stain - Final 09/14/19 10:26 Back Wound Culture - Final NO AEROBIC OR ANAEROBIC GROWTH OBTAINED. 09/09/19 14:53 Urine - Urine - Catheterized Urine Culture - Final NO GROWTH OBTAINED Problem List - Problems (1) PANCHO (acute kidney injury) Code(s): N17.9 - ACUTE KIDNEY FAILURE, UNSPECIFIED (2) Wound infection after surgery Code(s): T81.49XA - INFECTION FOLLOWING A PROCEDURE, OTHER SURGICAL SITE, INIT (3) Hx of decompressive lumbar laminectomy Code(s): Z98.890 - OTHER SPECIFIED POSTPROCEDURAL STATES Assessment/Plan Thoraco-lumbar spine infection/abscess s/p I+D PANCHO C.diff Ag +/ toxin neg Anemia -- continue Ceftriaxone, plan discussed -- diarrhea resolved, s/p course of Vancomycin po -- renal function improved for d/c planning
[2019-10-01] MEDS: CHLORHEXIDINE GLUCONATE 4% CLEANSER FOR DECOLONIZATION TP SCH (21:19)
[2019-10-02] MEDS: oxyCODONE HCL 5 MG TABLET PO PRN ×2 (04:27→09:36)
[2019-10-02] MEDS: LACTOBACILLUS ACIDOPHILUS 1 TABLET PO SCH ×2 (05:39→14:55)
[2019-10-02 08:16] LABS: CALCIUM 8.5 mg/dL (8.5-10.1); CREATININE 2.2 mg/dL (0.55-1.3); MAGNESIUM 1.9 mg/dL (1.8-2.4); PHOSPHOROUS 3.9 mg/dL (2.5-4.9); POTASSIUM 3.7 mmol/L (3.5-5.1)
[2019-10-02] MEDS ORDERED: DEXTROSE 5%-WATER - 50 ML IVPB ONE (08:59)
[2019-10-02] MEDS ORDERED: cefTRIAXone SODIUM 1 GM VIAL ONE (08:59)
[2019-10-02] MEDS: LABETALOL HCL 200 MG TABLET (FP) PO SCH (09:04)
[2019-10-02] MEDS: amLODIPine BESYLATE 10 MG TABLET (FP) PO SCH (09:04)
[2019-10-02] MEDS: PANTOPRAZOLE SODIUM 40 MG VIAL IVPUSH SCH (09:05)
[2019-10-02] MEDS: CEFTRIAXONE 1 GM in DEXTROSE 5%-WATER - 50 ML IVPB SCH (09:05)
--- NOTE | 2019-10-02 10:38 | PN ---
Progress Note (short form) - Note Progress Note: Hospitalist Medicine Resting in bed, without complaint. awaiting bed at [place] . Has +R chest PICC ; c /w abx for another 17 days [place] physician is Dr. Cruz at [phone] completed 10 day tx c. diff (ag +, toxin -), OK for return. new paperwork sent per Vitals 10/02/19 08:00 Temperature 98.4 F Pulse Rate 72 Respiratory 16 Rate Blood Pressure 129/90 Physical Exam GENERAL: resting in bed HEENT: NCAT, moist MM NECK: Trachea midline, full range of motion, supple. CHEST: +R chest picc c/d/i LUNGS: CTA b/l. no accessory m usage HEART: S1, S2 RRR. no r/m/g BACK: limited ROM ABDOMEN: soft, nontender , nondistended EXTREMITIES: no pedal edema. 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 however able to move UE, LE Laboratory Tests Laboratory Tests 10/02/19 05:45 Sodium 143 Potassium 3.7 Chloride 111 H Carbon Dioxide 25 BUN 20.0 H Creatinine 2.2 H Random Glucose 77 Microbiology 09/16/19 16:13 Back Gram Stain - Final 09/16/19 16:13 Back Wound Culture - Final NO AEROBIC OR ANAEROBIC GROWTH OBTAINED. 09/16/19 01:30 Stool Gram Stain - Final 09/16/19 01:30 Stool Clostridioides difficile Antigen - Final 09/16/19 01:30 Stool Clostridioides difficile Toxin Assay - Final 09/14/19 10:27 Back Gram Stain - Final 09/14/19 10:27 Back Wound Culture - Final NO AEROBIC OR ANAEROBIC GROWTH OBTAINED. 09/14/19 10:26 Back Gram Stain - Final 09/14/19 10:26 Back Wound Culture - Final NO AEROBIC OR ANAEROBIC GROWTH OBTAINED. 09/14/19 10:24 Back Gram Stain - Final 09/14/19 10:24 Back Wound Culture - Final NO AEROBIC OR ANAEROBIC GROWTH OBTAINED. 09/12/19 15:28 Blood - Peripheral Venous Blood Culture - Final NO GROWTH AFTER 5 DAYS INCUBATION 09/12/19 15:20 Blood - Peripheral Venous Blood Culture - Final NO GROWTH AFTER 5 DAYS INCUBATION 09/09/19 16:30 Back Gram Stain - Final 09/09/19 16:30 Back Wound Culture - Final Escherichia Coli Bacteroides Fragilis Campylobacter Gracilis 09/09/19 14:53 Urine - Urine - Catheterized Urine Culture - Final NO GROWTH OBTAINED Imaging 09/09/19: CXR: s/p anterior cervical fusion. ortho hardware in the lower thoracic, upper lumbosacral spine. cardiomegaly. uncoiled thoracic aorta. no evidence of pneumothorax or large pl effusion. no evidence of pulm edema. linear opacities are noted in the right mid lung zone atelectatic changes. 09/15/19: Renal sono: nonobstructing R renal calculus 1.1cm echogenic focus lower pole R kidney 09/15/19: Abd sono: fatty infiltration of enlarged liver, cholelithiasis, nonobstructing R renal calculus, R renal cyst 09/27/19: R chest wall picc placement Assessment/Plan 68 y/o F with no significant PMH who presents s/p L1-S1 posterior decompression & T11-S1 instrumented fusion (08/26/2019) now p/w wound infection. #s/p L1-S1 posterior decompression & T11-S1 instrumented fusion (08/26/2019) -s/p multiple I&D, most recent repeat washout, debridement thoracolumbar spine -d/c zosyn. started on rocephin (09/18). w/ R chest wall PICC, for 17 days more of abx -recent cx (-) -incentive spirometer -pain control: danilo PRN per sx -ID: Dr. Tesfaye -Sx: Dr. Villa #HTN -better controlled -on labetalol 200mg BID #M spike -differentials - MGUS, MM, but likely 2/2 infection, inflammation -repeat when clinically stable -elevated K,L. protein w/u - in process -will need outpt f/u -heme/onc: Dr. Finn #PANCHO vs. PANCHO on CKD - improving -monitoring off IVF, has been improving -Fena 1.4% intrinsic likely ATN -c/t monitor -nephro: Dr. Loo #R/o c. diff -with c. diff ag (+) however toxin (-) -completed 10 day course of vanc 125mg PO q6h prophylactically -OK for return to facility. new paperwork faxed per SW -ID: Dr. Tesfaye #F/E/N monitoring off IVF continue to follow lytes regular diet #PPX mechanical only- SCD/TEDs GI: protonix #Dispo ICU monitoring PICC is in place; awaiting bed placement at [place] dc order is in
--- NOTE | 2019-10-02 10:43 | PN ---
Progress Note, Physician History of Present Illness: Pt seen and examined at bedside. She is awake and alert. She denies shortness of breath. - Current Medication List Current Medications: Active Medications Amlodipine Besylate (Norvasc -) 10 mg PO DAILY [facility] Last Admin: 10/02/19 09:04 Dose: 10 mg Benzocaine/Menthol (Cepacol Lozenge -) 1 each MM PRN PRN PRN Reason: SORE THROAT Chlorhexidine Gluconate (Hibiclens For Decolonization -) 1 applic TP HS [facility] Last Admin: 10/01/19 21:19 Dose: 1 applic Ceftriaxone Sodium 1 gm/ (Dextrose) 50 mls @ 100 mls/hr IVPB DAILY [facility]; Protocol Last Admin: 10/02/19 09:05 Dose: 100 mls/hr Labetalol HCl (Normodyne -) 200 mg PO BID [facility] Last Admin: 10/02/19 09:04 Dose: 200 mg Lactobacillus Acidophilus (Bacid -) 1 tab PO TID [facility] Last Admin: 10/02/19 05:39 Dose: 1 tab Ondansetron HCl (Zofran Injection) 4 mg IVPUSH Q6H PRN PRN Reason: NAUSEA AND/OR VOMITING Oxycodone HCl (Roxicodone -) 10 mg PO Q4H PRN PRN Reason: PAIN LEVEL 6-10 Last Admin: 10/02/19 09:36 Dose: 10 mg Pantoprazole Sodium (Protonix Iv) 40 mg IVPUSH DAILY [facility] Last Admin: 10/02/19 09:05 Dose: 40 mg - Objective Vital Signs: Vital Signs Temperature 98.4 F 10/02/19 08:00 Pulse Rate 72 10/02/19 08:00 Respiratory Rate 14 10/02/19 08:22 Blood Pressure 129/90 10/02/19 08:00 O2 Sat by Pulse Oximetry (%) 100 10/02/19 08:22 Constitutional: Yes: Calm Eyes: Yes: Conjunctiva Clear HENT: Yes: Atraumatic Cardiovascular: Yes: S1, S2 Respiratory: Yes: CTA Bilaterally Gastrointestinal: Yes: Soft, Abdomen, Obese Genitourinary: Yes: WNL Edema: Yes Edema: LLE: Trace, RLE: Trace Neurological: Yes: Oriented Psychiatric: Yes: Oriented Labs: CBC, BMP 09/27/19 05:45 10/02/19 05:45 INR, PTT INR 1.69 (0.83-1.09) H 09/13/19 05:45 Problem List - Problems (1) PANCHO (acute kidney injury) Code(s): N17.9 - ACUTE KIDNEY FAILURE, UNSPECIFIED (2) Hypokalemia Code(s): E87.6 - HYPOKALEMIA (3) Wound infection after surgery Code(s): T81.49XA - INFECTION FOLLOWING A PROCEDURE, OTHER SURGICAL SITE, INIT (4) Hx of decompressive lumbar laminectomy Code(s): Z98.890 - OTHER SPECIFIED POSTPROCEDURAL STATES Assessment/Plan Current Medications Generic Name Dose Route Start Last Admin Trade Name Freq PRN Reason Stop Dose Admin Amlodipine Besylate 10 mg 09/29/19 10:00 10/02/19 09:04 Norvasc - PO 10 mg DAILY [facility] Administration Benzocaine/Menthol 1 each 09/28/19 10:32 Cepacol Lozenge - MM PRN PRN SORE THROAT Chlorhexidine Gluconate 1 applic 09/28/19 22:00 10/01/19 21:19 Hibiclens For Decolonization - TP 1 applic HS [facility] Administration Ceftriaxone Sodium 1 gm/ 50 mls @ 100 mls/hr 09/29/19 10:00 10/02/19 09:05 Dextrose IVPB 100 mls/hr DAILY [facility] Administration Protocol Labetalol HCl 200 mg 09/29/19 09:03 10/02/19 09:04 Normodyne - PO 200 mg BID [facility] Administration Lactobacillus Acidophilus 1 tab 09/28/19 14:00 10/02/19 05:39 Bacid - PO 1 tab TID [facility] Administration Ondansetron HCl 4 mg 09/28/19 10:32 Zofran Injection IVPUSH Q6H PRN NAUSEA AND/OR VOMITING Oxycodone HCl 10 mg 10/02/19 04:22 10/02/19 09:36 Roxicodone - PO 10 mg Q4H PRN Administration PAIN LEVEL 6-10 Pantoprazole Sodium 40 mg 09/29/19 10:00 10/02/19 09:05 Protonix Iv IVPUSH 40 mg DAILY [facility] Administration 1. PANCHO likely ATN 2. Spine wound infection 3. Hyponatremia in setting of decreased renal function now improved 4. hypokalemia 5. nephrolithiasis 6. m-spike Plan - renal function is improving - cont to monitor - will need repeat labs and follow up with oncology for pos m-spike, this was explained to pt and her family - avoid nsaids
--- NOTE | 2019-10-02 10:59 | PN ---
Teaching Attending Note Name of Resident: Soha Reilly ATTENDING PHYSICIAN STATEMENT I saw and evaluated the patient. I reviewed the resident's note and discussed the case with the resident. I agree with the resident's findings and plan as documented. SUBJECTIVE: OBJECTIVE: Vital Signs Period Temp Pulse Resp BP Sys/No Pulse Ox Last 24 Hr 97.2 F-98.4 F 66-74 11-16 117-136/56-90 98-100 Laboratory Results - last 24 hr 10/02/19 05:45 Sodium 143 Potassium 3.7 Chloride 111 H Carbon Dioxide 25 Anion Gap 8 BUN 20.0 H Creatinine 2.2 H Est GFR (CKD-EPI)AfAm 25.48 Est GFR (CKD-EPI)NonAf 21.99 Random Glucose 77 Calcium 8.5 Phosphorus 3.9 Magnesium 1.9 Current Medications Generic Name Dose Route Start Last Admin Trade Name Freq PRN Reason Stop Dose Admin Amlodipine Besylate 10 mg 09/29/19 10:00 10/02/19 09:04 Norvasc - PO 10 mg DAILY [facility] Administration Benzocaine/Menthol 1 each 09/28/19 10:32 Cepacol Lozenge - MM PRN PRN SORE THROAT Chlorhexidine Gluconate 1 applic 09/28/19 22:00 10/01/19 21:19 Hibiclens For Decolonization - TP 1 applic HS [facility] Administration Ceftriaxone Sodium 1 gm/ 50 mls @ 100 mls/hr 09/29/19 10:00 10/02/19 09:05 Dextrose IVPB 100 mls/hr DAILY [facility] Administration Protocol Labetalol HCl 200 mg 09/29/19 09:03 10/02/19 09:04 Normodyne - PO 200 mg BID [facility] Administration Lactobacillus Acidophilus 1 tab 09/28/19 14:00 10/02/19 05:39 Bacid - PO 1 tab TID [facility] Administration Ondansetron HCl 4 mg 09/28/19 10:32 Zofran Injection IVPUSH Q6H PRN NAUSEA AND/OR VOMITING Oxycodone HCl 10 mg 10/02/19 04:22 10/02/19 09:36 Roxicodone - PO 10 mg Q4H PRN Administration PAIN LEVEL 6-10 Pantoprazole Sodium 40 mg 09/29/19 10:00 10/02/19 09:05 Protonix Iv IVPUSH 40 mg DAILY [facility] Administration ASSESSMENT AND PLAN:
[2019-10-02 12:21] VITALS: PULSE 66
[2019-10-02 13:00] VITALS: BMI 39.4
--- NOTE | 2019-10-02 14:00 | PN ---
Progress Note, Physician History of Present Illness: stable no new issues - Current Medication List Current Medications: Active Medications Amlodipine Besylate (Norvasc -) 10 mg PO DAILY [facility] Last Admin: 10/02/19 09:04 Dose: 10 mg Benzocaine/Menthol (Cepacol Lozenge -) 1 each MM PRN PRN PRN Reason: SORE THROAT Chlorhexidine Gluconate (Hibiclens For Decolonization -) 1 applic TP HS [facility] Last Admin: 10/01/19 21:19 Dose: 1 applic Ceftriaxone Sodium 1 gm/ (Dextrose) 50 mls @ 100 mls/hr IVPB DAILY [facility]; Protocol Last Admin: 10/02/19 09:05 Dose: 100 mls/hr Labetalol HCl (Normodyne -) 200 mg PO BID [facility] Last Admin: 10/02/19 09:04 Dose: 200 mg Lactobacillus Acidophilus (Bacid -) 1 tab PO TID [facility] Last Admin: 10/02/19 05:39 Dose: 1 tab Ondansetron HCl (Zofran Injection) 4 mg IVPUSH Q6H PRN PRN Reason: NAUSEA AND/OR VOMITING Oxycodone HCl (Roxicodone -) 10 mg PO Q4H PRN PRN Reason: PAIN LEVEL 6-10 Last Admin: 10/02/19 09:36 Dose: 10 mg Pantoprazole Sodium (Protonix Iv) 40 mg IVPUSH DAILY [facility] Last Admin: 10/02/19 09:05 Dose: 40 mg - Objective Vital Signs: Vital Signs Temperature 98.4 F 10/02/19 08:00 Pulse Rate 66 10/02/19 12:00 Respiratory Rate 15 10/02/19 12:00 Blood Pressure 113/53 L 10/02/19 12:00 O2 Sat by Pulse Oximetry (%) 100 10/02/19 08:22 Constitutional: Yes: No Distress, Calm Cardiovascular: Yes: S1, S2 Respiratory: Yes: Regular, CTA Bilaterally Gastrointestinal: Yes: Normal Bowel Sounds, Soft Musculoskeletal: Yes: WNL Extremities: Yes: WNL Wound/Incision: Yes: Clean/Dry Neurological: Yes: Alert, Oriented Psychiatric: Yes: Alert, Oriented Labs: CBC, BMP 09/27/19 05:45 10/02/19 05:45 INR, PTT INR 1.69 (0.83-1.09) H 09/13/19 05:45 Assessment/Plan Problem List - Problems (1) PANCHO (acute kidney injury) Code(s): N17.9 - ACUTE KIDNEY FAILURE, UNSPECIFIED (2) Wound infection after surgery Code(s): T81.49XA - INFECTION FOLLOWING A PROCEDURE, OTHER SURGICAL SITE, INIT (3) Hx of decompressive lumbar laminectomy Code(s): Z98.890 - OTHER SPECIFIED POSTPROCEDURAL STATES Assessment/Plan Thoraco-lumbar spine infection/abscess s/p I+D PANCHO C.diff Ag +/ toxin neg Anemia plan continue abx complete the course as advised
[2019-10-02 14:15] VITALS: BP 115/57; TEMP 98.9
--- NOTE | 2019-10-02 19:05 | DS ---
Physical Exam: SUBJECTIVE: Resting in bed, without complaint. awaiting bed at [facility] . Has +R chest PICC ; c/w abx for another 17 days [facility] physician is Dr. Cruz at [phone] completed 10 day tx c. diff (ag +, toxin -), OK for return. new paperwork sent per OBJECTIVE: Vital Signs Period Temp Pulse Resp BP Sys/No Pulse Ox Last 24 Hr 97.2 F-98.9 F 66-74 11-16 113-136/53-90 98-100 PHYSICAL EXAM GENERAL: resting in bed HEENT: NCAT, moist MM NECK: Trachea midline, full range of motion, supple. CHEST: +R chest picc c/d/i LUNGS: CTA b/l. no accessory m usage HEART: S1, S2 RRR. no r/m/g BACK: limited ROM ABDOMEN: soft, nontender , nondistended EXTREMITIES: no pedal edema. pulses intact NEUROLOGICAL: vibration analyst 2-12 grossly intact. however able to move UE, LE LABS Laboratory Results - last 24 hr 10/02/19 05:45 Sodium 143 Potassium 3.7 Chloride 111 H Carbon Dioxide 25 Anion Gap 8 BUN 20.0 H Creatinine 2.2 H Est GFR (CKD-EPI)AfAm 25.48 Est GFR (CKD-EPI)NonAf 21.99 Random Glucose 77 Calcium 8.5 Phosphorus 3.9 Magnesium 1.9 Microbiology 09/16/19 16:13 Back Gram Stain - Final 09/16/19 16:13 Back Wound Culture - Final NO AEROBIC OR ANAEROBIC GROWTH OBTAINED. 09/16/19 01:30 Stool Gram Stain - Final 09/16/19 01:30 Stool Clostridioides difficile Antigen - Final 09/16/19 01:30 Stool Clostridioides difficile Toxin Assay - Final 09/14/19 10:27 Back Gram Stain - Final 09/14/19 10:27 Back Wound Culture - Final NO AEROBIC OR ANAEROBIC GROWTH OBTAINED. 09/14/19 10:26 Back Gram Stain - Final 09/14/19 10:26 Back Wound Culture - Final NO AEROBIC OR ANAEROBIC GROWTH OBTAINED. 09/14/19 10:24 Back Gram Stain - Final 09/14/19 10:24 Back Wound Culture - Final NO AEROBIC OR ANAEROBIC GROWTH OBTAINED. 09/12/19 15:28 Blood - Peripheral Venous Blood Culture - Final NO GROWTH AFTER 5 DAYS INCUBATION 09/12/19 15:20 Blood - Peripheral Venous Blood Culture - Final NO GROWTH AFTER 5 DAYS INCUBATION 09/09/19 16:30 Back Gram Stain - Final 09/09/19 16:30 Back Wound Culture - Final Escherichia Coli Bacteroides Fragilis Campylobacter Gracilis 09/09/19 14:53 Urine - Urine - Catheterized Urine Culture - Final NO GROWTH OBTAINED Imaging 09/09/19: CXR: s/p anterior cervical fusion. ortho hardware in the lower thoracic, upper lumbosacral spine. cardiomegaly. uncoiled thoracic aorta. no evidence of pneumothorax or large pl effusion. no evidence of pulm edema. linear opacities are noted in the right mid lung zone atelectatic changes. 09/15/19: Renal sono: nonobstructing R renal calculus 1.1cm echogenic focus lower pole R kidney 09/15/19: Abd sono: fatty infiltration of enlarged liver, cholelithiasis, nonobstructing R renal calculus, R renal cyst 09/27/19: R chest wall picc placement HOSPITAL COURSE: Date of Admission:09/09/19 Date of Discharge: 10/02/19 68 y/o F with no significant PMH who presents s/p L1-S1 posterior decompression & T11-S1 instrumented fusion (08/26/2019) now p/w wound infection. #s/p L1-S1 posterior decompression & T11-S1 instrumented fusion (08/26/2019) -s/p multiple I&D, most recent repeat washout, debridement thoracolumbar spine -d/c zosyn. started on rocephin (09/18). w/ R chest wall PICC, for 17 days more of abx -recent cx (-) -incentive spirometer -pain control: danilo PRN per sx -ID: Dr. Tesfaye -Sx: Dr. Villa #HTN -better controlled -on labetalol 200mg BID #M spike -differentials - MGUS, MM, but likely 2/2 infection, inflammation -repeat when clinically stable -elevated K,L. protein w/u - in process -will need outpt f/u -heme/onc: Dr. Finn #PANCHO vs. PANCHO on CKD - improving -monitoring off IVF, has been improving -Fena 1.4% intrinsic likely ATN -c/t monitor -nephro: Dr. Loo #R/o c. diff -with c. diff ag (+) however toxin (-) -completed 10 day course of vanc 125mg PO q6h prophylactically -OK for return to facility. new paperwork faxed per SW -ID: Dr. Tesfaye #F/E/N monitoring off IVF continue to follow lytes regular diet #PPX mechanical only- SCD/TEDs GI: protonix #Dispo ICU monitoring PICC is in place; awaiting bed placement at [facility] dc order is in Minutes to complete discharge: 65 Discharge Summary Problems reviewed: Yes Reason For Visit: HX OF DECOMPRESSIVE LAMINECTOMY,POSTOP WOUND Condition: Improved - Instructions Diet, Activity, Other Instructions: You were in the hospital because you had a back surgery and had a wound infection. You underwent multiple incision and drainage procedures with your surgeon, Dr. Villa. During your time in the hospital, you were also treated for the infection with IV antibiotics. You will require four more weeks of antibiotics, which will continue at [facility]. Medications 1. You will need to take the antibiotic, IV ceftriaxone through a PICC line. That will be placed by the interventional radiologist at [facility]. You will need to continue this for a total of 4 weeks. You have 17 days left. During this time, you will need to have CBC (complete blood count) and BMP's (basic metabolic panel) done to monitor your progress, electrolytes. 2. You can continue on roxicodone 10mg every four hours as needed for pain, set up by your surgeon. 3. While on the oxycodone, you can take senna, colace, miralax daily (as needed ) if you become constipated. But please first discuss this with your surgeon, in order to prevent any wound contamination. 4. New blood pressure medications: You have been started on labetalol 200 mg - take twice a day. amlodipine 10mg - take once a day. (since your blood pressure was high in the hospital) 5. Take bacid 1 pill three times a day, this is a probiotic for your gut health. 6. You also should take protonix 40mg daily- this is an acid suppressant for your stomach. This is your home med. 7. You may continue your other home meds. Care You will need to have your dressing changed, as per your surgeon directions. Please discuss this with Dr. Villa. PT FWBAT. Per Dr. Villa -Nursing Care: -Offload heals with rolled towels under ankles to avoid heel ulcers/pressure sores. -Log roll q2h/place on wedge pillows to avoid sacral decubitus ulcer formation. -Attentive perineal hygiene. -PT/OT/Rehab: -No heavy lifting (>5 lbs), bending or twisting x 6 months post op. -WBAT B/L LE. -Out of bed and ambulating with assistance. -Patient has been bedbound for weeks; all lower extremity joints are stiff and lower extremity musculature has atrophied & weakened. -Mobilize bed to chair with physical therapy team at least BID with ambulation/gait training as well. -Patient is to flex & extend ankles, knees, and hips throughout the day - especially when not working with physical therapy team. -f/u daily labs. -DVT PPx: -Mechanical only: VLADISLAV's, SCD's. -Incentive spirometry q5-10 min. Follow-up appointments 1. You must see a primary care doctor to help establish care, we will refer you to Dr. Roberts in the resident clinic, down the street (at [facility]). please see in 1 week, or once you are out of [facility]. you can follow with for now while at [facility]. 2. Please see a kidney doctor (supply crib attendant), Dr. Loo to monitor your renal function - 1 week 3. You should also see Dr. Villa in a week. 4. Please see Dr. Tesfaye, the infectious disease doctor you saw in the hospital - 1 week 5[address] Please see Dr. Toussaint, a GI doctor for your elevated liver tests. - 1 week . You may need an MRCP procedure. You will need a CMP followed in few days, d/t gallstone. 6. Please see Dr. Finn , the tie layer/oncologist to discuss the "M Clarence" that was seen in your labs. You may need to have these tests repeated as an outpatient - 1 week. Referrals: Dr. Dg Roberts [Other] - 1 Week Panda Tesfaye MD [Staff Physician] - 1 Week Radha Cruz [Primary Care Provider] - 1 Week Winston Toussaint MD [Staff Physician] - 1 Week Westley Finn MD [Staff Physician] - 1 Week Nadeem Loo MD [Staff Physician] - 1 Week Elder Villa MD [Staff Physician] - 1 Week Disposition: LONG TERM FACILITY - Home Medications Comprehensive Discharge Medication List: Ambulatory Orders Baclofen 10 mg PO BID 09/09/19 Docusate Sodium [Colace] 100 mg PO DAILY 09/09/19 Pantoprazole Sodium [Protonix] 40 mg PO DAILY 09/09/19 Polyethylene Glycol 3350 [Miralax 119 gm Btl -] 17 gm PO DAILY 09/09/19 Sennosides [Senna] 2 tab PO HS 09/09/19 Amlodipine Besylate [Norvasc -] 10 mg PO DAILY #0 tablet 09/27/19 Ceftriaxone [Rocephin -] 1 gm IVPB DAILY vial 09/27/19 Chlorhexidine Gluconate [Hibiclens For Decolonization -] 1 applic TP HS bottle 09/27/19 Lactobacillus Acidophilus [Bacid -] 1 tab PO TID tab 09/27/19 oxyCODONE HCL [Roxicodone -] 10 mg PO Q4H PRN tablet MDD 60 mg 09/27/19 Labetalol HCl [Normodyne -] 200 mg PO BID #60 tablet 09/30/19 This patient is new to me today: No Emergency Visit: No Critical Care patient: No - Discharge Referral Referred to [facility] No
== END 2019-10-02 15:02 | DRG 856 ==
LOC: JER 11:33 → JERBED 12:48 → JSAMEDAYSX 17:00 → JICU 22:39 → J2W 09-28 10:25
PROVIDERS: ADMIT Internal Medicine; ATTEND Internal Medicine
PROC: 0KBJ0ZZ Excision of Left Thorax Muscle, Open Approach (ICD-10-PCS; 2019-09-09)
PROC: 0JD70ZZ Extraction of Back Subcutaneous Tissue and Fascia, Open Approach (ICD-10-PCS; principal; 2019-09-09 14:15)
PROC: 30233N1 Transfusion of Nonautologous Red Blood Cells into Peripheral Vein, Percutaneous Approach (ICD-10-PCS; 2019-09-10)
PROC: 0JD70ZZ Extraction of Back Subcutaneous Tissue and Fascia, Open Approach (ICD-10-PCS; 2019-09-11)
PROC: 0JD70ZZ Extraction of Back Subcutaneous Tissue and Fascia, Open Approach (ICD-10-PCS; 2019-09-14)
PROC: 0JD70ZZ Extraction of Back Subcutaneous Tissue and Fascia, Open Approach (ICD-10-PCS; 2019-09-16)
PROC: 0JD70ZZ Extraction of Back Subcutaneous Tissue and Fascia, Open Approach (ICD-10-PCS; 2019-09-18)
PROC: 0JQ70ZZ Repair Back Subcutaneous Tissue and Fascia, Open Approach (ICD-10-PCS; 2019-09-18)
PROC: 0JH63XZ Insertion of Tunneled Vascular Access Device into Chest Subcutaneous Tissue and Fascia, Percutaneous Approach (ICD-10-PCS; 2019-09-27)
DX: T81.49XA Infection following a procedure, other surgical site, initial encounter (principal); N17.0 Acute kidney failure with tubular necrosis; D62 Acute posthemorrhagic anemia; E87.1 Hypo-osmolality and hyponatremia; A04.72 Enterocolitis due to Clostridium difficile, not specified as recurrent; Z68.39 Body mass index [BMI] 39.0-39.9, adult; E87.6 Hypokalemia; N20.0 Calculus of kidney; I10 Essential (primary) hypertension; E83.42 Hypomagnesemia; E66.01 Morbid (severe) obesity due to excess calories; N18.9 Chronic kidney disease, unspecified; Y83.9 Surgical procedure, unspecified as the cause of abnormal reaction of the patient, or of later complication, without mention of misadventure at the time of the procedure; E88.09 Other disorders of plasma-protein metabolism, not elsewhere classified
CPT/HCPCS: 36415; 36430; 36511; 36558; 71045-TC-FY; 76705-TC; 76775-TC; 80048; 80053; 81003; 82436; 82565; 82570; 82784; 82962; 82977; 83516; 83520; 83540; 83550; 83631; 83735; 83880; 83883; 83930; 83935; 84100; 84132; 84133; 84134; 84155; 84156; 84165; 84300; 85025; 85027; 85610; 85651; 85730; 86038; 86140; 86225; 86256; 86850; 86900; 86901; 86922; 87040; 87070; 87076; 87086; 87177; 87186; 87205; 87209; 87324; 87449; 88304-TC; 93005; 93010; 94010; 94760; 97116-GP; 97161-GP; 99284-25; G0480; J0131; J7030; P9038; P9058

== ENCOUNTER → 2019-10-29 | Day surgery (SDC) | payer OTHER | END | disposition home or self-care (01) | LOC: JRADIR 09:11 | PROVIDERS: ATTEND Orthopaedic Surgery Orthopaedic Surgery of the Spine | PROC: 02PY33Z Removal of Infusion Device from Great Vessel, Percutaneous Approach (ICD-10-PCS; principal; 2019-10-29) | DX: Z45.2 Encounter for adjustment and management of vascular access device (principal) | CPT/HCPCS: 36589; 36590 ==